=== PATIENT | male | born 1955 | race Caucasian/White ===

== ENCOUNTER → 2018-06-01 11:15 | Outpatient (CLI) | payer OTHER, SELFPAY ==
--- NOTE | 2018-06-01 11:30 | EKG12_ITS ---
Test Reason : PRE-OP Blood Pressure : / mmHG Vent. Rate : 078 BPM Atrial Rate : 078 BPM P-R Int : 178 ms QRS Dur : 090 ms QT Int : 398 ms P-R-T Axes : 041 -09 011 degrees QTc Int : 453 ms Normal sinus rhythm Normal ECG Confirmed by RICO JOHNSON, ILIR ([id number]), purchasing expeditor YADI MOSELEY ([id number]) on 06/02/2018 9:35:13 AM Referred By: Norris Adams Confirmed By:ILIR GÓMEZ MD
[2018-06-01 11:47] LABS: Hematocrit 47.7 % (40-54); Hemoglobin 15.6 g/dl (13.0-16.5); Mean Corp Hgb Conc 32.7 g/gl (32-36); Mean Corpuscular Hgb 30.7 pg (27.0-32.0); Mean Corpuscular Volume 93.9 fL (80-94); Mean Platelet Vol. 9.6 fl (6.2-12.0); Platelet Count 230 K/mm3 (150-450); RBC Distribution Width CV 13.3 % (11.6-14.6); RBC Distribution Width SD 45.7 fl (35.1-43.9); Red Blood Count 5.08 M/mm3 (4.6-6.2); White Blood Count 6.1 K/mm3 (4.4-11.0)
[2018-06-01 12:00] LABS: Scan Indicated on CBC? Y/N NO
[2018-06-01 12:10] LABS: Anion Gap 11 (5-15); BUN 14 mg/dL (7-18); BUN/Creat Ratio 12.3 RATIO (10-20); Calcium,Total 8.6 mg/dL (8.5-10.1); Chloride 108 mmol/L (98-107); Creatinine, Serum 1.14 mg/dL (0.70-1.30); EST Glomerular Filtration Rate 69 mL/min (>60); Est Glom Filt Rate - Afr Amer 84 mL/min (>60); Glucose 106 mg/dL (74-106); Potassium 3.8 mmol/L (3.5-5.1); Sodium Level 140 mmol/L (136-145)
== END ==
PROVIDERS: Family Provider Family Medicine; PCP Family Medicine; Referring Provider Orthopaedic Surgery; Visit Provider Orthopaedic Surgery
DX: Z01.818 Encounter for other preprocedural examination (principal); Z01.810 Encounter for preprocedural cardiovascular examination
CPT/HCPCS: 36415; 80048; 85027; 93005

== ENCOUNTER 2023-04-15 05:23 | Day surgery (SDC) | payer MEDICARE, BC, SELFPAY ==
[2023-04-15 05:50] VITALS: BP 136/77; PULSE 62; RESP 18; TEMP 36.2; O2SAT 96; BMI 35.1
[2023-04-15] MEDS: Lactated Ringers 1,000 ML 15 ML IV (06:04)
--- NOTE | 2023-04-15 06:35 | COLBX_PTH ---
PATIENT: TRACY GOSS LOC: EN U#:[id number] AGE/SX: 67/M ROOM: RE04/15/[address]: Dr. Daniel Basurto DO : 1955 BED: DIS: 04/15/2023 SPEC #: [id number] RECD: 04/15/23 10:37 STATUS: TIA VIOLETA #: [id number] PASCALE: 04/15/23 06:[address]: Daniel Basurto DEPT: SURGICAL PATHOLOGY RECD BY: Bia Pascual ENTERED: 04/15/23 11:23 SP TYPE: COLON BX OTHR DR: DO Dr. Regis Ferguson MD Tissues: Ascending colon Procedures: Surgery Specimen Level IV HEADER OPERATION: Colonoscopy - open access, polypectomy, marking clip PRE-OP DIAGNOSIS: Screening TISSUE SUBMITTED: Ascending polyp MICROSCOPIC DIAGNOSIS Ascending colon polyp, biopsy: Fragments of hyperplastic polyp. AM:delgado 04/16/2023 MICROSCOPIC DESCRIPTION Slides are reviewed. GROSS DESCRIPTION Received in fixative is one container labeled with the patient's name and designated ascending polyp. The specimen consists of multiple irregular fragments of light lozano soft tissue mixed with fecal material that in aggregate measure 3.0 x 0.8 x 0.3 cm. The specimen is totally submitted in one cassette. / SJ:delgado 04/15/2023 TC:5 CPT: 72379
--- NOTE | 2023-04-15 06:35 | HP.PCM_ITS ---
HPI - General General Date of Admission: 04/15/23 Date of Service: 04/15/23 Chief Complaint: Screening colonoscopy HPI Narrative TRACY GOSS, is a 67 M who presents today for a screening colonoscopy. Past medical history is positive for hypertension which is controlled with metoprolol 50 mg daily. He had a colonoscopy approximately 10 years ago and it was normal except for hemorrhoidal disease. He has no family history of colorectal malignancy. He does not have any abdominal pain, cramping, bleeding or any change in bowel movement. All other 16 review of systems are negative except as revised mentioned HPI. [facility] Medical History (Updated 04/13/23 @ 15:41 by Whitney Joshi) Alcohol use Arthritis Asthma Back pain Blackout Cardiology follow-up encounter Family hx of colon cancer Fatty liver Generalized anxiety disorder High cholesterol History of echocardiogram History of IBS History of stress test HTN (hypertension) Injury of head and neck Insomnia Kidney stones Major depressive disorder Mixed hyperlipidemia TARIK (obstructive sleep apnea) Prediabetes Seasonal allergies Shortness of breath on exertion Sleep apnea Tricuspid valve regurgitation Wears glasses Home Medications metoprolol succinate 100 mg tablet,extended release 24 hr 50 mg PO DAILY 03/12/23 [History Last Taken Unknown] Allergy/AdvReac Type Severity Reaction Status Date / Time No Known Allergies Allergy Verified 04/15/23 05:46 Family History (Updated 03/12/23 @ 14:21 by Lisa Atkinson) Daughter Colon cancer Grandmother Colon cancer Unknown Rectal cancer Surgical History (Updated 04/13/23 @ 15:41 by Whitney Joshi) History of esophagogastroduodenoscopy (EGD) History of Little fundoplication Hx of colonoscopy Hx of inguinal hernia repair Hx of knee surgery Hx of shoulder surgery Hx of surgical procedure Social History (Updated 03/12/23 @ 14:22 by Lisa Atkinson) household members: spouse current occupational status: employed Smoking Status: Never smoker ROS Review of Systems ROS Unobtainable: other Constitutional Constitutional: Denies fatigue, fever(s), poor appetite, weight gain or weight loss ENT HEENT: Denies mouth lesions Cardiovascular Cardiovascular: Denies abdominal bloating, abdominal edema or abdominal pain Respiratory/Chest Respiratory/Chest: Denies change in mental status, change in phlegm color, chest congestion or chest tightness Gastrointestinal Gastrointestinal: Denies belching, bloating, change in bowel habits, change in stool character, chewing difficulty, coffee ground emesis, constipation, cramping, diarrhea, dyspepsia, dysphagia, early satiety, excessive flatus, fecal incontinence, heartburn, hematemesis, hematochezia, hemorrhoids, loose stools, melena, nausea, odynophagia, rectal bleeding, tenesmus, vomiting or weight changes Genitourinary Genitourinary: Denies abdominal discomfort, burning urination or itching Musculoskeletal Musculoskeletal: Reports as per HPI; Denies muscle weakness or myalgias Integumentary Integumentary: Denies jaundice Neurologic Neurologic: Denies lack of coordination or weakness Psychiatric Psychiatric: Denies confusion, depression, memory loss, mood swings, paranoia or suicidal ideation Endocrine Endocrinology: Denies systems reviewed and no addt'l complaints, except as documented Hematologic/Lymphatic Hematologic/Lymphatic: Denies anemia, easy bleeding, easy bruising or lymphadenopathy Allergic/Immunologic Allergic/Immunologic: Denies systems reviewed and no addt'l complaints, except as documented Vital Signs Vital Signs Vital Signs: 04/15/23 05:49 04/15/23 05:50 Temperature 97.2 F L Temperature Source Temporal Pulse Rate 62 Respiratory Rate 18 Respiratory Pattern Normal Blood Pressure 136/77 H Blood Pressure Mean 96 Blood Pressure Source Monitor Blood Pressure Position Semi-Fowlers Blood Pressure Location Right Arm Pulse Ox 96 Oxygen Delivery Method Room Air Weight Weight: 214 lb 3.2 oz Body Mass Index (BMI) 35.1 Physical Exam Const alert, oriented x3, no apparent distress, healthy appearing and well nourished General Appearance: cooperative, comfortable, well kempt and well developed Orientation / Consciousness: awake and oriented to person HEENT Head and Scalp: normocephalic and atraumatic Face and Sinus: normal facial exam Mouth: oral and palatal mucosa normal Eyes General Eye: normal appearance of both eyes Neck full ROM Lymph Lymphatic: no lymphadenopathy noted Chest inspection of chest normal Resp normal respiratory effort and no use of accessory muscles Cardio regular rate and regular rhythm GI normal to inspection, nondistended, normoactive bowel sounds, soft to palpation, non-tender, non-distended and no masses Auscultation: normoactive bowel sounds Palpation: soft Percussion: normal to percussion Rectal Exam: visual inspection normal and normal sphincter tone no CVA tenderness Back/Spine no CVA tenderness and normal ROM Extremity normal to inspection Peripheral Pulses: Yes pulses 2+ throughout Skin no rashes or lesions noted General Skin Exam: no breakdown, elasticity normal and turgor normal Neuro oriented x3 Motor Exam: strength 5/5 throughout Psych mental status grossly normal Appearance: grossly normal Attitude: calm Activity / Motor Behavior: appropriate eye contact Speech: normal speech Thought Process: normal thought process Thought Content: normal thought content Attention / Concentration: attention grossly intact Memory / Cognition: memory grossly intact Insight: insight good Judgement: judgement good Assessment & Plan Assessment/Plan (1) Encounter for screening for malignant neoplasm of colon: PLAN: He was explained alternatives, risk, benefits including not withstanding bleeding, infection, sepsis, perforation, need for emergent surgery . He will have an ASA of 2.
[2023-04-15 07:10] VITALS: BP 136/77; BP 95/60; PULSE 70; RESP 18; TEMP 36.7; O2SAT 98
--- NOTE | 2023-04-15 07:13 | OP.COLON_ITS ---
Patient Name: Dennis Cardoso Procedure Date: 04/15/2023 6:27 AM Date of : 1955 Age: 67 Procedure: Colonoscopy Indications: Screening for colorectal malignant neoplasm Providers: Daniel Basurto DO Referring MD: Regis Patel Medicines: Monitored Anesthesia Care Patient Profile: This is a 67 year old male. Refer to note in patient chart for documentation of history and physical. Last Colonoscopy: more than 10 years ago. Complications: No immediate complications. Procedure: Pre-Anesthesia Assessment: - Prior to the procedure, a History and Physical was performed, and patient medications and allergies were reviewed. The patient is competent. The risks and benefits of the procedure and the sedation options and risks were discussed with the patient. All questions were answered and informed consent was obtained. Patient identification and proposed procedure were verified by the physician in the pre-procedure area. Mental Status Examination: alert and oriented. Airway Examination: normal oropharyngeal airway and neck mobility. Respiratory Examination: clear to auscultation. CV Examination: normal. Prophylactic Antibiotics: The patient does not require prophylactic antibiotics. Prior Anticoagulants: The patient has taken no anticoagulant or antiplatelet agents. ASA Grade Assessment: II - A patient with mild systemic disease. After reviewing the risks and benefits, the patient was deemed in satisfactory condition to undergo the procedure. The anesthesia plan was to use monitored anesthesia care (MAC). Immediately prior to administration of medications, the patient was re-assessed for adequacy to receive sedatives. The heart rate, respiratory rate, oxygen saturations, blood pressure, adequacy of pulmonary ventilation, and response to care were monitored throughout the procedure. The physical status of the patient was re-assessed after the procedure. After I obtained informed consent, the scope was passed under direct vision. Throughout the procedure, the patient's blood pressure, pulse, and oxygen saturations were monitored continuously. The colonoscope was introduced through the anus and advanced to the cecum, identified by appendiceal orifice and ileocecal valve. The colonoscopy was performed without difficulty. The patient tolerated the procedure well. The quality of the bowel preparation was adequate. The ileocecal valve, appendiceal orifice, and rectum were photographed. Scope In: 6:46:07 AM Scope Withdrawal Time 0 hours 13 minutes 53 seconds Scope Out: 7:03:18 AM Total Procedure Duration Time 0 hours 17 minutes 11 seconds Findings: The perianal and digital rectal examinations were normal. A 29 mm polyp was found in the ascending colon. The polyp was sessile. The polyp was removed with a saline injection-lift technique using a hot snare. Resection and retrieval were complete. Verification of patient identification for the specimen was done. Area was tattooed with an injection of 2 mL of Theresa ink. To prevent bleeding post-intervention, one hemostatic clip was successfully placed. Clip meat cutter: [employer]. There was no bleeding at the end of the procedure. A 5 mm polyp was found in the ascending colon. The polyp was sessile. The polyp was removed with a cold snare. Resection and retrieval were complete. Verification of patient identification for the specimen was done. Estimated blood loss was minimal. Multiple small and large-mouthed diverticula were found in the recto-sigmoid colon and sigmoid colon. Impression: - One 29 mm polyp in the ascending colon, removed using injection-lift and a hot snare. Resected and retrieved. Tattooed. Clip was placed. Clip meat cutter: [employer]. - One 5 mm polyp in the ascending colon, removed with a cold snare. Resected and retrieved. - Diverticulosis in the recto-sigmoid colon and in the sigmoid colon. Recommendation: - Discharge patient to home. - Resume previous diet. - Continue present medications. - Await pathology results. - Repeat colonoscopy in 5 years for surveillance. Procedure Code(s): --- Professional --- 63943, Colonoscopy, flexible; with removal of tumor(s), polyp(s), or other lesion(s) by snare technique 27638, Colonoscopy, flexible; with directed submucosal injection(s), any substance CPT copyright 2021 [employer]. All rights reserved. The codes documented in this report are preliminary and upon braille coder review may be revised to meet current compliance requirements. Dnaiel Basurto DO 04/15/2023 7:13:04 AM This report has been signed electronically. Number of Addenda: 0 Note Initiated On: 04/15/2023 6:27 AM
--- NOTE | 2023-04-15 07:13 | OP.CCLET_ITS ---
04/15/2023 Regis Phillips Do Re : Colonoscopy procedure for Dennis Cardoso Dear Dr. Phillips This procedure was performed on March. My impressions and recommendations are as follows: Impressions : - One 29 mm polyp in the ascending colon, removed using injection-lift and a hot snare. Resected and retrieved. Tattooed. Clip was placed. Clip beverage specialist: [employer] - One 5 mm polyp in the ascending colon, removed with a cold snare. Resected and retrieved. - Diverticulosis in the recto-sigmoid colon and in the sigmoid colon. Recommendations : - Discharge patient to home. - Resume previous diet. - Continue present medications. - Await pathology results. - Repeat colonoscopy in 5 years for surveillance. My findings are described in the full procedure note, which is enclosed. If I can be of further assistance, please feel free to contact me at . Sincerely, Daniel Basurto, 04/15/2023 7:13:04 AM This report has been signed electronically.
[2023-04-15 07:15] VITALS: BP 104/72; BP 136/77; PULSE 71; RESP 18; O2SAT 92
[2023-04-15 07:20] VITALS: BP 118/78; BP 136/77; PULSE 68; RESP 16; O2SAT 94
[2023-04-15 07:25] VITALS: BP 127/75; BP 136/77; PULSE 55; RESP 18; O2SAT 94
[2023-04-15 07:57] VITALS: BP 136/77
== END 2023-04-15 08:01 | disposition home or self-care (01) ==
LOC: EN 05:24 → AC 05:26
PROVIDERS: Referring Provider Internal Medicine; Visit Provider Internal Medicine Gastroenterology
PROC: 0DJD8ZZ Inspection of Lower Intestinal Tract, Via Natural or Artificial Opening Endoscopic (ICD-10-PCS; CPT 45378; principal; 2023-04-15 06:30)
DX: Z12.11 Encounter for screening for malignant neoplasm of colon (principal); K63.5 Polyp of colon; K57.30 Diverticulosis of large intestine without perforation or abscess without bleeding; I10 Essential (primary) hypertension; Z79.899 Other long term (current) drug therapy; Z80.0 Family history of malignant neoplasm of digestive organs
CPT/HCPCS: 45385; 45381; 88305; J7120; A4648; J2405

== ENCOUNTER 2024-04-27 10:42 | Inpatient (IN) | payer MEDICARE, BC, SELFPAY ==
[2024-04-27 11:14] VITALS: BP 122/78; PULSE 68; RESP 16; TEMP 37.1; O2SAT 94; BMI 338215.5
--- NOTE | 2024-04-27 11:51 | NURSING ---
Waiting to hear back from Dr Thompson if pt can have DVT prophylaxis.
[2024-04-27] MEDS: Magnesium Hydroxide 30 ML UDC PO (11:59)
[2024-04-27] MEDS: Senna/Docusate Sodium 1 Tablet 2 TABLET PO ×2 (11:59→20:42)
[2024-04-27 12:45] LABS: Bacteria 0 SEEN /hpf (None Seen); Mucous, Urine 0 SEEN /hpf (<or=2+); Red Blood Cells-Urine 0 SEEN /hpf (0-5); Squamous Epithelial Cells - UA 0 SEEN /hpf (0-5); White Blood Cells 0 SEEN /hpf (0-5)
[2024-04-27 12:50] LABS: Color, Urine Yellow (Yellow); Glucose, Dipstick Normal (Normal); Ketone-Dipstick Negative (Negative); Leukocyte Esterase-Dipstick Negative /ul (Negative); Nitrite-Dipstick Negative (Negative); Occult Blood-Urine Negative /ul (Negative); Protein-Dipstick Negative (Negative); Urine Bilirubin Dipstick Negative (Negative); Urine Clarity Clear (Clear); Urine Urobilinogen Normal (Normal); Urine pH 6.5 (5.0 - 8.0)
[2024-04-27] MEDS: Acetaminophen 500 MG Tablet 1000 MG PO ×2 (13:09→21:44)
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
--- NOTE | 2024-04-27 14:25 | REHABEVAL_ITS ---
Admission Information Primary Diagnosis:: Post stroke debility Status Changes from Prescreening?: No changes Identified Actual Problem List:: Pain, ALteration in Cmfrt, Cognitve Impr/Memory Loss, Depression, Bowel, Constipation, Alteration in Sleep, Mobility Impaired, Self Care Deficit, Fluid Change-Dehydration and Alteration-Leisure Activ. Potential Problem List:: DVT, Bleeding, Infection, UTI, Aspiration, Falls, Skin Integrity and Depression Risk of Complications DVT: WILDER Hose and Sequential Compression Device Bleeding: Monitor Lab Values, Nursing to Teach Precautions for anti-coagulation therapy., Wound, if applicable, to be assessed every shift. and Stroke patients assessed for lethargy or change in status. Infection: Clinical Staff to Monitor for S/S of infection: and S/S of infection include fever, redness, warmth, etc. Urinary Tract Infection: Monitor for frequency, burning, discomfort, or incontinence. and Nursing will obtain urine sample for urinalysis and C&S when ordered. Aspiration: Clinical staff will monitor for coughing, drooling, congestion., Speech will evaluate swallowing and dsyphasia. and Nursing will monitor patient swallowing during meals. Falls: Patient will be evaluated for Fall Precautions and Patient will be placed on Fall Precautions as indicated per protocol. Skin Breakdown: Nursing will assess skin daily using assessment tool. and Nursing will place on Skin Breakdown Precautions as indicated. Pain: Clinical staff will assess patient's pain level per protocol., Medications will be given, if needed, and the pain level reassessed. and Other methods: Massage, distraction, decrease stimulus, etc. used PRN. Plan of Care Patient requires physician specializing in physical medicine and rehab oversight to provide close medical supervision of rehab issues including: Pain Management, Sleep Problems, Bowel and Bladder, Medical and co-morbidity Management, DVT prophylaxis, Rehabilitation Leadership and Coordination of treatment team Patient needs Physical Therapy: For a minimum of 1 hour and At least 5 out of 7 days Patient needs Physical Therapy to improve:: Mobility, Strengthening, Transfers, Stretching, ROM, Endurance, Stairs, Gait and Balance Patient needs Occupational Therapy: For a minimum of 1 hour and At least 5 out of 7 days Patient needs Occupational Therapy to improve ADL's incl.: Eating, Grooming, Bathing, Dressing, Toileting, Toilet transfers, Community Reintegration, Higher functioning activities, Household tasks, Adaptive Equipment, Splinting and Other activities as determined Patient requires speech therapy: For a minimum of 1 hour and At least 5 out of 7 days Patient requires speech therapy for: Swallowing, Cognition, Language Skills and Compensatory Strategies Patient requires 24/ Rehabilitation Nursing for: Pain Issues, Identifying and preventing risk factors, Monitoring and reporting current medical conditions, Assisting with ambulation, transfer, and all ADL's, Teaching patients about disease process and medications, Family teaching, Providing safe environment, Bowel and Bladder Issues, Skin integrity and Medication Management Patient needs Precision Agronomist/ Case Management for: Discharge Planning, Arranging Home Equipment or Services and Family Interventions Patient needs Dietary and Nutrition Services for: Adequate Nutrition, Nutritional Supplements and Nutritional Education Goals Goals Patient will remain: free from falls Patient will perform eating at: MOD I level of assist. Patient will perform bed mobility at: MOD I level of assist. Patient will complete transfers from bed to chair at: MOD I level of assist. Patient will ambulate: - (500 feet with least restrictive device at supervision various surfaces.) Patient will complete upper body dressing at: MOD I level of assist. Patient will complete lower body dressing at: MOD I level of assist. ( With adaptive equipment as needed) Patient will complete toilet transfer at: MOD I level of assist. Patient will complete toileting at: MOD I level of assist. Patient will perform bathing at: MOD I level of assist. (Upper body bathing independently and lower body bathing at mod I with adaptive equipment as needed.) Patient will perform Tub/Shower transfer at: - (Supervision) Patient will complete grooming at: MOD I level of assist. Patient will complete home management skills at: MOD I level of assist. Patient will achieve: - (2 steps with least restrictive device and no handrails to allow access to his home entrance) Patient will have pain level of: of 3 or less Patient's skin will: remain intact Patient will receive: adequate nutrition. Discharge Planning Pt Prognosis for Sig. Practical Improv. w/in Reasonable Time: Good Estimated Length of stay (days): 21 Anticipated D/C Destination: Home with Outpt Therapy Was Preadmission Assessment Accurate?: Yes
--- NOTE | 2024-04-27 16:05 | CASEMGMT ---
Social Work- Met with pt to complete initial assessment. Introduced self and role. Verified/updated contacts. Pt does not have directives and declined completion of directives with SW at this time. Educated to Medicare benefit and copay coverage. Pt?s goal is to return home with spouse. SW will continue to follow for DC planning. SW updated contacts to include daughter per pt request. NAHEED Gambino ?
[2024-04-27 18:00] VITALS: BP 111/71; PULSE 105; RESP 16; TEMP 37.1; O2SAT 94
[2024-04-27 20:28] VITALS: BP 127/81; PULSE 106
[2024-04-27 20:42] VITALS: PULSE 106
[2024-04-27] MEDS: Metoprolol(XL)Succ 25 MG Tablet PO (20:42)
[2024-04-27] MEDS: Mirtazapine 30 MG Tablet PO (20:42)
[2024-04-27] MEDS: Bisacodyl 10 MG Suppository RC (20:44)
[2024-04-27] MEDS: diazePAM 5 MG Tablet PO (20:44)
[2024-04-27 21:18] VITALS: PULSE 104; O2SAT 92
[2024-04-28] VITALS (8 sets, daily range): BP systolic 115–165; BP diastolic 68–88; PULSE 77–105; RESP 16–20; TEMP 36.8–38.5; O2SAT 92–96
[2024-04-28] MEDS: hydrALAZINE 10 MG Tablet PO (04:38)
[2024-04-28] MEDS: Acetaminophen 500 MG Tablet 1000 MG PO ×3 (05:25→21:02)
[2024-04-28 07:04] LABS: Absolute Lymphocyte Count 2.11 X10^3/uL (0.83-4.51); Absolute Neutrophil Count 8.6 X10^3/uL (2.0-7.7); Basophil# 0.03 X10^3/uL; Basophil% 0.2 % (0-1); Eosinophil# 0.37 X10^3/uL; Hematocrit 41.6 % (40-54); Hemoglobin 13.6 g/dL (13.0-16.5); Lymphocyte # 2.11 X10^3/ul (0.83-4.51); Mean Corp Hgb Conc 32.7 g/dL (32-36); Mean Corpuscular Hgb 30.1 pg (27.0-32.0); Mean Platelet Vol. 8.8 fl (6.2-12.0); Monocyte# 1.24 X10^3/uL; NRBC Flagged by Analyzer 0 % (0-5); Neutrophil # 8.59 X10^3/uL (2.7-7.7); Neutrophil % 69.3 % (47-70); Platelet Count 342 K/mm3 (150-450); RBC Distribution Width CV 14.2 % (11.6-14.6); RBC Distribution Width SD 47.8 fl (35.1-43.9); Red Blood Count 4.52 M/mm3 (4.6-6.2); White Blood Count 12.4 K/mm3 (4.4-11.0)
[2024-04-28 07:33] LABS: ALB/GLOB Ratio 0.9 RATIO (0.9-2.4); AST(SGOT) 14 U/L (15-37); Alanine Aminotransfer ALT/SGPT 30 U/L (16-61); Alkaline Phosphatase 48 U/L (45-117); Anion Gap 6 (5-15); BUN 22 mg/dL (7-18); BUN/Creat Ratio 19.5 RATIO (10-20); Chloride 102 mmol/L (98-107); Creatinine, Serum 1.13 mg/dL (0.70-1.30); EST Glomerular Filtration Rate 69 mL/min (>60); Est Glom Filt Rate - Afr Amer 83 mL/min (>60); Estimated Creatinine Clearance 60.83 ml/min; Globulin 3.5 g/dL (2.2-4.2); Glucose 121 mg/dL (74-106); Magnesium 2.2 mg/dL (1.6-2.6); Phosphorus 3.1 mg/dL (2.5-4.9); Potassium 3.7 mmol/L (3.5-5.1); Protein, Total 6.5 g/dL (6.4-8.2); Sodium Level 137 mmol/L (136-145)
[2024-04-28 08:02] LABS: Hemoglobin A1c 6.1 % (3.8-5.6)
[2024-04-28] MEDS: Pantoprazole Sodium 20 MG Tablet PO (08:11)
[2024-04-28] MEDS: Senna/Docusate Sodium 1 Tablet 2 TABLET PO (08:11)
[2024-04-28] MEDS: Aspirin E.C. 81 MG Tablet PO (08:11)
[2024-04-28] MEDS: Clopidogrel Bisulfate 75 MG Tablet PO (08:12)
[2024-04-28] MEDS: Cholecalciferol (VIT D3) 25 MCG TABLET (1,000 UNITS) 50 MCG PO (08:12)
[2024-04-28] MEDS: Metoprolol(XL)Succ 25 MG Tablet PO ×2 (08:12→21:01)
[2024-04-28] MEDS: Atorvastatin Calcium 40 MG Tablet PO (08:12)
[2024-04-28] MEDS: Ascorbic Acid 500 MG Tablet PO (08:12)
[2024-04-28] MEDS: hydroCHLOROthiazide 25 MG Tablet PO (08:12)
[2024-04-28] MEDS: Losartan Potassium 50 MG Tablet PO (08:13)
[2024-04-28] MEDS: diazePAM 5 MG Tablet PO ×2 (08:17→21:01)
--- NOTE | 2024-04-28 14:26 | NURSING ---
Soap suds enema administered this afternoon. Small amount of liquid stool as a result.
--- NOTE | 2024-04-28 14:40 | PCM.PROGNOTE ---
Subjective Subjective Temp of 101.3 this afternoon at 2:35. Not tachycardic. BP is stable. VSS - Maintaining appropriate oxygen saturation on RA Oral intake - FOOD 850 to 74% of his breakfast but only 25 to 40% of his lunch. FLUIDS poor Discussed with nursing - only had a very small BM after MOM. Nursing gave a SS enema today. Rosenthal inserted last night for urine retention. He is not on any medication for BPH Reviewed the THERAPY notes Medication list reviewed. C/O HATHAWAY. He denies nasal congestion, rhinitis, lightheadedness, sore throat, cough, sinus pain, shortness of breath, chest pain, dysuria, calf pain. He is having some abdominal discomfort after the enema and is cramping. UA yesterday had no white blood cells and no bacteria. White blood cell count today is 12.4 with an unremarkable differential. Hemoglobin is 13.6 and platelets are within normal limits. Sodium is 137 and the potassium is 3.7. Serum bicarb is normal. The BUN is 22 with a creatinine of 1.13. Fasting blood sugar was elevated at 121 and the hemoglobin A1c is elevated at 6.1 which is consistent with prediabetes/glucose intolerance. Phosphorus and magnesium are normal. LFTs are unremarkable. Objective Data Objective Data Vital Signs: Vital Signs Temp Pulse Resp BP Pulse Ox O2 Del Method O2 Flow Rate 101.3 F H 88 18 142/68 H 92 Room Air 0 04/28/24 14:35 04/28/24 14:35 04/28/24 14:35 04/28/24 14:35 04/28/24 14:35 04/28/24 14:35 04/27/24 21:18 FiO2 21 04/27/24 21:18 Oxygen Flow Rate (L/min) 0 Oxygen Delivery Method Room Air Weight: 203 lb 4.259 oz Body Mass Index (BMI) 041722.5 Intake & Output: Intake and Output for Last 24 Hours 04/26/24 04/27/24 04/28/24 23:59 23:59 23:59 Intake Total 700 / 700 370 / 370 Output Total 1550 / 1550 1250 / 1250 Balance -850 / -850 -880 / -880 Lab / Micro Data 04/28/24 06:30 04/28/24 06:30 Labs: Laboratory Results - last 24 hr 04/28/24 06:30: WBC 12.4 H, RBC 4.52 L, Hgb 13.6, Hct 41.6, MCV 92.0, MCH 30.1, MCHC 32.7, RDW Std Deviation 47.8 H, RDW Coeff of Bobby 14.2, Plt Count 342, MPV 8.8, Immature Gran % (Auto) 0.500, Neut % (Auto) 69.3, Lymph % (Auto) 17.0 L, Bradley % (Auto) 10.0, Eos % (Auto) 3.0, Baso % (Auto) 0.2, Absolute Neuts (auto) 8.6 H, Absolute Lymphs (auto) 2.11, Nucleated RBC % 0, Sodium 137, Potassium 3.7, Chloride 102, Carbon Dioxide 29.0, Anion Gap 6, BUN 22 H, Creatinine 1.13, Estim Creat Clear Calc 60.83, Est GFR (MDRD) Af Amer 83, Est GFR (MDRD) Non-Af 69, BUN/Creatinine Ratio 19.5, Glucose 121 H, Hemoglobin A1c 6.1 H, Calcium 9.0, Phosphorus 3.1, Magnesium 2.2, Total Bilirubin 0.70, AST 14 L, ALT 30, Alkaline Phosphatase 48, Total Protein 6.5, Albumin 3.0 L, Globulin 3.5, Albumin/Globulin Ratio 0.9 Social Homelessness:: Unspecified (Not homeless) Physical Exam Const alert General Appearance: cooperative HEENT HEENT Narrative: NO THRUSH. No exudate in the posterior pharynx. No cervical adenopathy. Neck is supple and he has no pain in his neck. Mouth: dry mucous membranes Neck supple and No nodes General: trachea midline Resp normal respiratory effort, normal air movement and clear to auscultation bilaterally Resp Narrative: No cough with deep breathing. Effort and Inspection: Negative for tachypneic or respiratory distress Cardio regular rate, regular rhythm, no murmurs, no rub and no gallops GI GI Narrative: He was incontinent of stool after the enema but, after having a BM tells me that he feels better. The abd is not distended and it is soft. He had no guarding with palpation. BS's are normal. No masses. Urine in the Rosenthal bag is clear but, it is dark yellow. Extremity no calf tenderness General Extremity: Negative for edema Skin General Skin Exam: no breakdown Rashes: no rashes Wounds: Negative for wounds noted Assessment & Plan Assessment/Plan (1) FUO (fever of unknown origin): (2) Debility: (3) Intracerebral hemorrhage: QUALIFIERS: Intracerebral hemorrhage etiology: nontraumatic Cerebral hemorrhage location: unspecified cerebral location Laterality: right Qualified Code(s): I61.9 - Nontraumatic intracerebral hemorrhage, unspecified (4) Left-sided neglect: (5) Left homonymous hemianopsia: (6) Coronary artery disease: QUALIFIERS: Coronary Disease-Associated Artery/Lesion type: [place] artery [place] vs. transplanted heart: [place] heart Associated angina: without angina Qualified Code(s): I25.10 - Atherosclerotic heart disease of [place] coronary artery without angina pectoris (7) History of PTCA 1: PLAN: To the LAD at [facility] in [place] on 04/19/24 (8) TARIK (obstructive sleep apnea): PLAN: Sees Dr. Knight. Has Inspire. PLAN: Plan 1. continue therapy 2. Schedule Tylenol 1 GM q 8 hours for better control of cephalgia........Tylenol has been effective for cephalgia but, if the HATHAWAY gets bad before he gets it then it takes longer for it to work. 3. BC's X 2 now. COVID 19 4. acute abd series.......exam is not consistent with bowel obstruction, lungs are CTA, no ST and no cough, no neck stiffness. Abd was more distended yesterday and a little firm but, not tense. 5. No antibiotics at this time. continue to monitory closely. 6. Start Flomax 0.4 mg daily and do a voiding trial in 4-5 days. 7. He has dry MM and BUN/CREAT ratio is almost 20. Poor PO intake. Will start an IV and hydrate. this may even help with the cephalgia. Charges/Coding Visit Charges Inpatient E&M: 60741 Subs Hosp L2
--- NOTE | 2024-04-28 15:05 | RAD_ITS ---
INDICATION: ABD PAIN WITH FEVER EXAMINATION/TECHNIQUE: X-RAY - XR Abdomen Series W/ Chest 1 View COMPARISON: S x-ray of 03/24/2010 FINDINGS: --Chest: LINES/DEVICES: quality assurance monitor device overlying the right chest. LUNGS: No consolidation, edema or effusion. No pneumothorax. MEDIASTINUM AND CARDIOVASCULAR STRUCTURES: Cardiac silhouette not enlarged. Tortuosity of the thoracic aorta. Central airways and mediastinal contour are unremarkable. BONES AND SOFT TISSUES: No acute findings. --Abdomen: BOWEL GAS PATTERN: Dilated small bowel loops and colon with air-fluid levels. FREE AIR: None visualized. ORGANOMEGALY: Not seen. CALCIFICATIONS: No abnormal calcifications observed. BONES AND SOFT TISSUES: No acute findings. RAD/Acute Abdomen Inc Chest IMPRESSION: Dilated small bowel loops and colon with air-fluid levels likely due to ileus. Bowel obstruction cannot be excluded. Electronically Signed: Vishal Martinez MD at 15:57 EDT ,
[2024-04-28] MEDS: 0.9% Normal Saline (1000mL) 1,000 ML 500 ML IV (15:50)
[2024-04-28] MEDS: 0.9% Normal Saline (1000mL) 1,000 ML 100 ML IV ×2 (17:47→20:51)
[2024-04-28] MEDS: Mirtazapine 30 MG Tablet PO (21:01)
[2024-04-29] VITALS (12 sets, daily range): BP systolic 131–172; BP diastolic 69–87; PULSE 66–86; RESP 16–17; TEMP 36.6–36.8; O2SAT 94–95
[2024-04-29] MEDS: Acetaminophen 500 MG Tablet 1000 MG PO ×3 (05:27→21:44)
[2024-04-29] MEDS: 0.9% Normal Saline (1000mL) 1,000 ML 100 ML IV ×2 (05:32→18:30)
--- NOTE | 2024-04-29 08:00 | PCM.PROGNOTE ---
Subjective Subjective Afebrile since yesterday afternoon. Blood pressures have been elevated and have ranged from 142/68 to 172/83 over the past 24 hours. Heart rate is 83 today. Had 4 BM's yesterday after the soap suds enema Tells me that he is feeling better today. He denies nausea. He ate 75 to 100% of a clear liquid diet. He denies nausea, abdominal pain, heartburn. No abdominal cramping. Continues to complain of cephalgia but adequately relieved with Tylenol which is now been scheduled. No night sweats overnight no shaking chills. Urine in the Rosenthal tubing and Rosenthal bag is more pale yellow today and is clear. Alert, appropriate HRRR no murmur and no gallop Lungs-good air exchange, clear to auscultation Abdomen soft, nondistended, nontender to palpation, improved bowel sounds today. No guarding with palpation. No calf tenderness, no ankle edema Objective Data Objective Data Vital Signs: Vital Signs Temp Pulse Resp BP Pulse Ox O2 Del Method O2 Flow Rate 98.2 F 83 16 172/83 H 95 Room Air 0 04/29/24 05:34 04/29/24 05:34 04/29/24 05:34 04/29/24 05:34 04/29/24 05:34 04/29/24 05:34 04/27/24 21:18 FiO2 21 04/27/24 21:18 Oxygen Flow Rate (L/min) 0 Oxygen Delivery Method Room Air Weight: 203 lb 4.259 oz Body Mass Index (BMI) 102551.5 Intake & Output: Intake and Output for Last 24 Hours 04/27/24 04/28/24 04/29/24 23:59 23:59 23:59 Intake Total 700 / 700 1945 / 1945 1886.67 / 1886.67 Output Total 1550 / 1550 2675 / 2675 1175 / 1175 Balance -850 / -850 -730 / -730 711.67 / 711.67 Lab / Micro Data 04/28/24 06:30 04/28/24 06:30 Labs: Laboratory Results - last 24 hr 04/28/24 06:30: Hemoglobin A1c 6.1 H Micro: Microbiology 04/28/24 16:20 Nasal Secretion SARS-CoV-2 Antigen (Rapid) - Final Radiography Diagnostic Testing: Radiology Impression Acute Abdomen Series 04/28/24 15:05 IMPRESSION: Dilated small bowel loops and colon with air-fluid levels likely due to ileus. Bowel obstruction cannot be excluded. Electronically Signed: Vishal Martinez MD at 15:57 EDT , Social Homelessness:: Unspecified (Not homeless) Assessment & Plan Assessment/Plan (1) FUO (fever of unknown origin): PLAN: I suspect this is due to obstipation with translocation of bacteria. (2) Ileus: PLAN: No BM for the week prior to coming to rehab (3) Debility: (4) Intracerebral hemorrhage: QUALIFIERS: Intracerebral hemorrhage etiology: nontraumatic Cerebral hemorrhage location: unspecified cerebral location Laterality: right Qualified Code(s): I61.9 - Nontraumatic intracerebral hemorrhage, unspecified (5) Left-sided neglect: (6) Left homonymous hemianopsia: (7) Coronary artery disease: QUALIFIERS: Coronary Disease-Associated Artery/Lesion type: [place] artery [place] vs. transplanted heart: [place] heart Associated angina: without angina Qualified Code(s): I25.10 - Atherosclerotic heart disease of [place] coronary artery without angina pectoris (8) History of PTCA 1: PLAN: To the LAD at [facility] in [place] on 04/19/24 (9) TARIK (obstructive sleep apnea): PLAN: Sees Dr. Knight. Has Inspire. (10) Urine retention: PLAN: Flomax started. Voiding trial in 4-5 days. PLAN: Plan 1. Continue therapy 2. Continue Flomax 0.4 mg daily with a voiding trial midweek 3. Advance diet to full liquid 4. Increase metoprolol to 50 mg twice daily in light of elevated blood pressures. Goal is to keep the systolic less than 140. Continue as needed hydralazine 5. Decrease the Valium to 5 mg at at bedtime 6. CBC with differential and BMP in the a.m. 7. Continue IV fluids-if he has good oral intake today and in the BUN/creatinine is improved in the morning we will discontinue the IV fluids. 8. No antibiotics indicated at this time. Charges/Coding Visit Charges Inpatient E&M: 78907 Subs Hosp L1
[2024-04-29] MEDS: Losartan Potassium 50 MG Tablet PO (08:05)
[2024-04-29] MEDS: Senna/Docusate Sodium 1 Tablet 2 TABLET PO (08:05)
[2024-04-29] MEDS: Atorvastatin Calcium 40 MG Tablet PO (08:05)
[2024-04-29] MEDS: Ascorbic Acid 500 MG Tablet PO (08:05)
[2024-04-29] MEDS: Cholecalciferol (VIT D3) 25 MCG TABLET (1,000 UNITS) 50 MCG PO (08:05)
[2024-04-29] MEDS: Aspirin E.C. 81 MG Tablet PO (08:05)
[2024-04-29] MEDS: Metoprolol(XL)Succ 50 MG Tablet PO ×2 (09:09→21:45)
[2024-04-29] MEDS: Clopidogrel Bisulfate 75 MG Tablet PO (09:10)
[2024-04-29] MEDS: Pantoprazole Sodium 20 MG Tablet PO (09:10)
[2024-04-29] MEDS: Tamsulosin HCl 0.4 MG Capsule PO (18:14)
[2024-04-29] MEDS: hydrALAZINE 10 MG Tablet PO (18:14)
[2024-04-29] MEDS: 0.9% Saline Lock 10 ML Syringe IV (18:31)
[2024-04-29] MEDS: Mirtazapine 30 MG Tablet PO (21:42)
[2024-04-29] MEDS: diazePAM 5 MG Tablet PO (21:50)
[2024-04-30] VITALS (10 sets, daily range): BP systolic 128–149; BP diastolic 64–82; PULSE 60–88; RESP 15–16; TEMP 36.8–37; O2SAT 96–98
--- NOTE | 2024-04-30 03:06 | NURSING ---
Reviewed and agree with Laverne GENAO, documentation and assessment charting.
[2024-04-30] MEDS: 0.9% Normal Saline (1000mL) 1,000 ML 100 ML IV ×2 (04:09→14:27)
[2024-04-30] MEDS: Acetaminophen 500 MG Tablet 1000 MG PO ×3 (06:04→20:54)
[2024-04-30 07:35] LABS: Absolute Lymphocyte Count 1.76 X10^3/uL (0.83-4.51); Absolute Neutrophil Count 6.7 X10^3/uL (2.0-7.7); Basophil# 0.04 X10^3/uL; Basophil% 0.4 % (0-1); Eosinophil# 0.39 X10^3/uL; Hematocrit 39.4 % (40-54); Hemoglobin 12.6 g/dL (13.0-16.5); Lymphocyte # 1.76 X10^3/ul (0.83-4.51); Lymphocyte % 18.1 % (19-41); Mean Corpuscular Volume 93.8 fL (80-94); Mean Platelet Vol. 8.8 fl (6.2-12.0); Monocyte% 8.2 % (0-10); NRBC Flagged by Analyzer 0 % (0-5); Neutrophil # 6.71 X10^3/uL (2.7-7.7); Platelet Count 310 K/mm3 (150-450); RBC Distribution Width CV 13.9 % (11.6-14.6); RBC Distribution Width SD 47.8 fl (35.1-43.9); White Blood Count 9.7 K/mm3 (4.4-11.0)
[2024-04-30] MEDS: Losartan Potassium 50 MG Tablet PO (07:53)
[2024-04-30 07:54] LABS: Anion Gap 5 (5-15); BUN 16 mg/dL (7-18); BUN/Creat Ratio 16.9 RATIO (10-20); Calcium,Total 8.5 mg/dL (8.5-10.1); Chloride 111 mmol/L (98-107); Creatinine, Serum 0.95 mg/dL (0.70-1.30); EST Glomerular Filtration Rate 85 mL/min (>60); Est Glom Filt Rate - Afr Amer 102 mL/min (>60); Estimated Creatinine Clearance 79.82 ml/min; Glucose 105 mg/dL (74-106); Sodium Level 140 mmol/L (136-145)
[2024-04-30] MEDS: Clopidogrel Bisulfate 75 MG Tablet PO (07:54)
[2024-04-30] MEDS: Pantoprazole Sodium 20 MG Tablet PO (07:54)
[2024-04-30] MEDS: Cholecalciferol (VIT D3) 25 MCG TABLET (1,000 UNITS) 50 MCG PO (07:54)
[2024-04-30] MEDS: Ascorbic Acid 500 MG Tablet PO (07:54)
[2024-04-30] MEDS: Aspirin E.C. 81 MG Tablet PO (07:54)
[2024-04-30] MEDS: Senna/Docusate Sodium 1 Tablet 2 TABLET PO ×2 (07:55→20:54)
[2024-04-30] MEDS: Atorvastatin Calcium 40 MG Tablet PO (11:07)
[2024-04-30] MEDS: Metoprolol(XL)Succ 50 MG Tablet PO ×2 (11:07→21:48)
[2024-04-30] MEDS: hydrALAZINE 10 MG Tablet PO ×3 (13:22→21:48)
[2024-04-30] MEDS: Tamsulosin HCl 0.4 MG Capsule PO (16:54)
[2024-04-30] MEDS: Mirtazapine 30 MG Tablet PO (20:54)
[2024-04-30] MEDS: diazePAM 5 MG Tablet PO (23:15)
[2024-05-01] MEDS: Acetaminophen 500 MG Tablet 1000 MG PO ×3 (06:18→21:29)
[2024-05-01 06:24] VITALS: BP 139/79; PULSE 69; RESP 16; TEMP 36.3; O2SAT 95
[2024-05-01] MEDS: Cholecalciferol (VIT D3) 25 MCG TABLET (1,000 UNITS) 50 MCG PO (07:36)
[2024-05-01] MEDS: Ascorbic Acid 500 MG Tablet PO (07:37)
[2024-05-01] MEDS: Clopidogrel Bisulfate 75 MG Tablet PO (07:37)
[2024-05-01] MEDS: Pantoprazole Sodium 20 MG Tablet PO (07:37)
[2024-05-01] MEDS: Atorvastatin Calcium 40 MG Tablet PO (07:37)
[2024-05-01] MEDS: Losartan Potassium 50 MG Tablet PO ×2 (07:37→12:10)
[2024-05-01] MEDS: Aspirin E.C. 81 MG Tablet PO (07:37)
[2024-05-01] MEDS: Senna/Docusate Sodium 1 Tablet 2 TABLET PO ×2 (07:37→21:32)
--- NOTE | 2024-05-01 08:58 | PCM.PROGNOTE ---
Subjective Subjective Dennis was seen on team rounds today. Afebrile -has been afebrile since Wednesday at 2:30 PM. He only had a fever 1 since admission. VSS -got 2 doses of p.o. hydralazine for mildly increased blood pressure yesterday. Blood pressure this morning is 139/79. Heart rate is within normal limits. Maintaining appropriate oxygen saturation on RA Oral intake - FOOD fair. Ate 75 to 100% of his breakfast this morning but refused supper last night. He was advanced to a soft diet today. FLUIDS better. 09/29/1969 p.o. yesterday and 1600 the day prior to that. Discussed with nursing - no problems that need addressed. 1 BM recorded for yesterday and he had 2 on Wednesday Reviewed the THERAPY notes Medication list reviewed. IV fluids were stopped last evening. All lab from this weekend was personally reviewed. White blood cell count yesterday was normal with an unremarkable differential. Hemoglobin was 12.6, down from 13.6 at admission however he was receiving IV fluids and being hydrated. Platelets are within normal limits. Sodium is normal at 140 and the potassium is 4.0. Serum bicarb is normal at 24. The BUN was down to 16 with a creatinine of 0.95, down from 1.13 at admission. Temp denies lightheadedness, chest pain, shortness of breath, palpitations, nausea/vomiting/abdominal pain, suprapubic pain and calf pain. Still having cephalgia but, adequately relieved with Tylenol which has been scheduled. Sleeping well at night. Objective Data Objective Data Vital Signs: Vital Signs Temp Pulse Resp BP Pulse Ox O2 Del Method O2 Flow Rate 97.4 F L 69 16 139/79 H 95 Room Air 0 05/01/24 06:24 05/01/24 06:24 05/01/24 06:24 05/01/24 06:24 05/01/24 06:05/01/24 06:04/27/24 21:18 FiO2 21 04/27/24 21:18 Oxygen Flow Rate (L/min) 0 Oxygen Delivery Method Room Air Weight: 203 lb 4.259 oz Body Mass Index (BMI) 641164.5 Intake & Output: Intake and Output for Last 24 Hours 04/29/24 04/30/24 05/01/24 23:59 23:59 23:59 Intake Total 4486.67 / 4486.67 3435 / 3435 1085 / 1085 Output Total 3005 / 3005 3100 / 3100 1250 / 1250 Balance 1481.67 / 1481.67 335 / 335 -165 / -165 Lab / Micro Data 04/30/24 07:17 04/30/24 07:17 Micro: Microbiology 04/28/24 15:29 Blood Culture (Wb) - Anticubital Left Blood Culture - Preliminary No growth in 48 hours. 04/28/24 16:20 Nasal Secretion SARS-CoV-2 Antigen (Rapid) - Final Social Homelessness:: Unspecified (Not homeless) Physical Exam Const alert Constitutional Narrative: Sitting in the recliner at the bedside. Does not make eye contact when speaking with someone. Very talkative. Pleasant. Does not seem anxious. General Appearance: cooperative HEENT moist oral mucous membranes Eyes PERRL Eyes Narrative: Can not adduct the R eye past midline. No nystagmus. Left visual neglect. He is not seeing to the R well.......does not blink with confrontation from the R lateral side of his face. Having trouble with depth perception........has a hard time finding his water cup which is on his R side. There is no scleral icterus, no conjunctival injection, no discharge from the eyes and no mattering of the eyelids. Neck supple, No nodes and no carotid bruits Neck Narrative: Trachea is midline General: trachea midline Resp normal respiratory effort, normal air movement and clear to auscultation bilaterally Resp Narrative: No cough with deep breathing. No cough. Effort and Inspection: Negative for tachypneic or respiratory distress Cardio regular rate, regular rhythm, no murmurs, no rub and no gallops Cardio Narrative: No ectopy. GI normal to inspection, nondistended, normoactive bowel sounds, soft to palpation and non-tender GI Narrative: No guarding with palpation. Having regular BM's now. Extremity no calf tenderness General Extremity: Negative for edema Skin no wounds and no jaundice Skin Narrative: Extensive bruising in the right upper arm over the biceps General Skin Exam: no breakdown Rashes: no rashes Wounds: Negative for wounds noted Neuro Neuro Narrative: Still with L side neglect. Needing VC's to avoid running into things with walking. Also needs VC's to find things on his meal tray without spilling. Coordination / Balance: [id number] test normal Psych cooperative Psych Narrative: Not making good eye contact when being spoken to.....not sure if this is his baseline or it is due to the change in the vision. Appearance: appropriate Mood & Affect: Negative for anxious Assessment & Plan Assessment/Plan (1) FUO (fever of unknown origin): PLAN: Resolved with out antibiotics. BC X 1 had no growth. I suspect the fever was due to obstipation with transient bacteremia Due to translocation of bacteria from distended colon. (2) Ileus: PLAN: resolved (3) Debility: (4) Intracerebral hemorrhage: QUALIFIERS: Cerebral hemorrhage location: unspecified cerebral location Intracerebral hemorrhage etiology: nontraumatic Laterality: right Qualified Code(s): I61.9 - Nontraumatic intracerebral hemorrhage, unspecified (5) Left-sided neglect: (6) Left homonymous hemianopsia: (7) Coronary artery disease: QUALIFIERS: Associated angina: without angina Coronary Disease-Associated Artery/Lesion type: [place] artery [place] vs. transplanted heart: [place] heart Qualified Code(s): I25.10 - Atherosclerotic heart disease of [place] coronary artery without angina pectoris (8) History of PTCA 1: (9) TARIK (obstructive sleep apnea): (10) Urine retention: PLAN: Started on Flomax 04/29/24. PLAN: Plan 1. Continue therapy 2. Increase Cozaar to 50 mg daily to consistently maintain blood pressure less than 140/80 without requiring Apresoline. 3. Voiding trial a.m. Will have received 5 doses of Flomax at that time. 4. Repeat CT brain on 05/08/2024. 5. His will come in prior to discharge for family training/shared care. 6. Lovenox 40 mg subcu daily for DVT prophylaxis-okayed by neurosurgery/neurology Charges/Coding Visit Charges Inpatient E&M: 85699 Subs Hosp L2
[2024-05-01 10:43] VITALS: BP 145/76; PULSE 95
[2024-05-01] MEDS: Metoprolol(XL)Succ 50 MG Tablet PO ×2 (10:43→21:29)
[2024-05-01] MEDS: Enoxaparin 40 MG/0.4 ML Syringe SC (12:11)
--- NOTE | 2024-05-01 13:07 | CASEMGMT ---
Social Work IDT met with patient and for Team meeting. Discussed patient's progress in PT/OT/ST/SN. Educated to Medicare approval of 12 days with DC 05/09. Offered therapy training with and scheduled, to ensure can care for pt at home. 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 SW will continue to follow for DC planning assistance. Will ReTeam next week. Hilda Del Rio MSW COMPANY MANAGER
[2024-05-01 14:00] VITALS: BP 136/78
[2024-05-01] MEDS: 0.9% Saline Lock 10 ML Syringe IV (15:14)
[2024-05-01 18:00] VITALS: BP 132/80; PULSE 80; RESP 16; TEMP 37.2; O2SAT 94
[2024-05-01] MEDS: Tamsulosin HCl 0.4 MG Capsule PO (18:42)
[2024-05-01 21:29] VITALS: BP 121/73; PULSE 88
[2024-05-01] MEDS: diazePAM 5 MG Tablet 2.5 MG PO (21:31)
[2024-05-01] MEDS: Mirtazapine 30 MG Tablet PO (21:31)
[2024-05-02] VITALS (8 sets, daily range): BP systolic 116–138; BP diastolic 70–86; PULSE 66–85; RESP 16; TEMP 36.6; O2SAT 93–95
--- NOTE | 2024-05-02 02:20 | NURSING ---
Pt c/o discomfort w/ holloway and thinks he needs to void. Clear, straw colored urine flowing through tubing into drainage bag. Pt stood using walker w/ assist of this nurse to promote relief of symptoms. Reports symptoms have improved w/ position change. Wishes to remain in recliner chair. Chair alarm in use. Given Anitra Doone cookies and chocolate pudding for a snack. Declines to wear O2 at this time. Call light w/ in reach. Will continue to monitor.
[2024-05-02] MEDS: Enoxaparin 40 MG/0.4 ML Syringe SC (06:15)
[2024-05-02] MEDS: Acetaminophen 500 MG Tablet 1000 MG PO ×3 (06:16→21:40)
[2024-05-02] MEDS: Losartan Potassium 100 MG Tablet PO (07:46)
[2024-05-02] MEDS: Cholecalciferol (VIT D3) 25 MCG TABLET (1,000 UNITS) 50 MCG PO (07:46)
[2024-05-02] MEDS: Ascorbic Acid 500 MG Tablet PO (07:46)
[2024-05-02] MEDS: Metoprolol(XL)Succ 50 MG Tablet PO ×2 (07:46→21:39)
[2024-05-02] MEDS: Senna/Docusate Sodium 1 Tablet 2 TABLET PO ×2 (07:46→21:39)
[2024-05-02] MEDS: Pantoprazole Sodium 20 MG Tablet PO (07:46)
[2024-05-02] MEDS: Atorvastatin Calcium 40 MG Tablet PO (07:46)
[2024-05-02] MEDS: Clopidogrel Bisulfate 75 MG Tablet PO (07:46)
[2024-05-02] MEDS: Aspirin E.C. 81 MG Tablet PO (07:46)
--- NOTE | 2024-05-02 08:33 | PCM.PROGNOTE ---
Subjective Subjective Afebrile VSS -blood pressure over the past 24 hours has ranged from 121/73 to 145/76. Did not receive any hydralazine as needed yesterday for elevated blood pressure. Heart rate is within normal limits. Maintaining appropriate oxygen saturation on RA while awake. Refused oxygen at bedtime last night. He is aware that his oxygen drops when he is sleeping and he himself tells me he does not feel his inspire unit is working. Oral intake - FOOD good FLUIDS fair Discussed with nursing - no problems that need addressed Reviewed the THERAPY notes Medication list reviewed. Tells me that the headaches are lessening. Slept well last night. No CP, SOB, palpitations. 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 Denies lightheadedness. No vertigo. Objective Data Objective Data Vital Signs: Vital Signs Temp Pulse Resp BP Pulse Ox O2 Del Method O2 Flow Rate 97.9 F 81 16 126/70 H 93 Room Air 0 05/02/24 06:00 05/02/24 07:46 05/02/24 06:00 05/02/24 06:00 05/02/24 06:00 05/02/24 06:00 04/27/24 21:18 FiO2 21 04/27/24 21:18 Oxygen Flow Rate (L/min) 0 Oxygen Delivery Method Room Air Weight: 203 lb 4.259 oz Body Mass Index (BMI) 489159.5 Intake & Output: Intake and Output for Last 24 Hours 04/30/24 05/01/24 05/02/24 23:59 23:59 23:59 Intake Total 3435 / 3435 1305 / 1305 Output Total 3100 / 3100 1900 / 1900 600 / 600 Balance 335 / 335 -595 / -595 -600 / -600 Lab / Micro Data 04/30/24 07:17 04/30/24 07:17 Micro: Microbiology 04/28/24 15:29 Blood Culture (Wb) - Anticubital Left Blood Culture - Preliminary No growth in 48 hours. 04/28/24 16:20 Nasal Secretion SARS-CoV-2 Antigen (Rapid) - Final Social Homelessness:: Unspecified (Not homeless) Physical Exam Const alert, oriented x3 and no apparent distress Constitutional Narrative: starting to make better eye contact with me when he is speaking with me. General Appearance: cooperative HEENT HEENT Narrative: MM are dry however the urine in the Rosenthal tubing is very pale yellow. Eyes Eyes Narrative: The R eye will deviate past midline now but, not all the way to the lateral canthus. No nystagmus. PERRL. Resp normal respiratory effort and clear to auscultation bilaterally Cardio regular rate and regular rhythm Cardio Narrative: No ectopy GI normal to inspection, nondistended, normoactive bowel sounds, soft to palpation and non-tender GI Narrative: tolerating regular textures now without N/abd pain, cramping......regular BM's Extremity no calf tenderness General Extremity: Negative for edema Skin General Skin Exam: no breakdown Rashes: no rashes Wounds: Negative for wounds noted Neuro Neuro Narrative: Still with Left homonymous hemianopia.......has some vision in the R upper nasal visual field now. R pupil now can pass midline when scanning but, not making it the entire way to the lateral canthus. Psych cooperative Attitude: No agitated Activity / Motor Behavior: Negative for restless Assessment & Plan Assessment/Plan (1) Debility: (2) Intracerebral hemorrhage: QUALIFIERS: Intracerebral hemorrhage etiology: nontraumatic Cerebral hemorrhage location: unspecified cerebral location Laterality: right Qualified Code(s): I61.9 - Nontraumatic intracerebral hemorrhage, unspecified (3) Left-sided neglect: (4) Left homonymous hemianopsia: (5) Coronary artery disease: QUALIFIERS: Coronary Disease-Associated Artery/Lesion type: [place] artery [place] vs. transplanted heart: [place] heart Associated angina: without angina Qualified Code(s): I25.10 - Atherosclerotic heart disease of [place] coronary artery without angina pectoris (6) History of PTCA 1: (7) TARIK (obstructive sleep apnea): (8) Urine retention: PLAN: Started on Flomax 04/29/24. PLAN: Plan 1. Continue therapy 2. Continue Cozaar 100 mg p.o. daily. Blood pressure is well-controlled today and at goal of less than 130/80 3. Discontinue SCDs.........pt refuses them and he is on Lovenox now for DVT prophylaxis. Charges/Coding Visit Charges Inpatient E&M: 76447 Subs Hosp L1
[2024-05-02] MEDS: 0.9% Saline Lock 10 ML Syringe IV ×2 (14:16→23:52)
--- NOTE | 2024-05-02 16:01 | CHAPLAIN ---
Type of Pastoral Visit _x__ Initial Visit ___ Follow-up Visit ___ On-call Visit ___ General Patient Visit ___ Spiritual Assessment ___ Family Conference ___ Bereavement ___ Rapid Response ___ Code Blue ___ Other (describe below) Pastoral Care Referral From ___ Patient _x__ Family ___ Nurse ___ Physician ___ Director Digital Sales ___ Dive Superintendent ___ Other (describe below) Sacrament/Intervention _x__ Active listening ___ Anointing ___ Mosque ___ Bereavement ___ Communion ___ Carina exploration ___ _x__ Life review _x__ Prayer ___ Reconciliation ___ Sacrament of Sick ___ Supportive presence ___ Wedding ___ Other (describe below) Pastoral Comments patient's family is known to this line supply; pt is open to having visit and conversation; pt explains his limitation but is encouraged with progress so far; pt has some hope for recovery; pt acknowledges thankfulness for family support and for prayers on many prayer chains; pt talks about his work life and family; pt welcomes prayer for today
[2024-05-02] MEDS: Tamsulosin HCl 0.4 MG Capsule PO (17:58)
[2024-05-02] MEDS: Mirtazapine 30 MG Tablet PO (21:39)
[2024-05-02] MEDS: diazePAM 5 MG Tablet 2.5 MG PO (21:42)
[2024-05-03] VITALS (10 sets, daily range): BP systolic 124–140; BP diastolic 67–93; PULSE 66–108; RESP 16; TEMP 36.9; O2SAT 94–95; BMI 33.6
[2024-05-03] MEDS: Acetaminophen 500 MG Tablet 1000 MG PO ×3 (05:47→21:54)
[2024-05-03] MEDS: Enoxaparin 40 MG/0.4 ML Syringe SC (05:47)
[2024-05-03] MEDS: Metoprolol(XL)Succ 50 MG Tablet PO ×2 (09:08→21:54)
[2024-05-03] MEDS: Aspirin E.C. 81 MG Tablet PO (09:08)
[2024-05-03] MEDS: Cholecalciferol (VIT D3) 25 MCG TABLET (1,000 UNITS) 50 MCG PO (09:08)
[2024-05-03] MEDS: Pantoprazole Sodium 20 MG Tablet PO (09:08)
[2024-05-03] MEDS: Losartan Potassium 100 MG Tablet PO (09:08)
[2024-05-03] MEDS: Ascorbic Acid 500 MG Tablet PO (09:08)
[2024-05-03] MEDS: Atorvastatin Calcium 40 MG Tablet PO (09:08)
[2024-05-03] MEDS: Clopidogrel Bisulfate 75 MG Tablet PO (09:08)
[2024-05-03] MEDS: Tamsulosin HCl 0.4 MG Capsule PO (17:16)
[2024-05-03] MEDS: Mirtazapine 30 MG Tablet PO (21:53)
[2024-05-03] MEDS: Senna/Docusate Sodium 1 Tablet 2 TABLET PO (21:53)
[2024-05-03] MEDS: diazePAM 5 MG Tablet 2.5 MG PO (21:55)
[2024-05-03] MEDS: hydrALAZINE 10 MG Tablet PO (22:05)
[2024-05-03] MEDS: 0.9% Saline Lock 10 ML Syringe IV (22:43)
[2024-05-04] VITALS (8 sets, daily range): BP systolic 113–154; BP diastolic 52–88; PULSE 80–98; RESP 15–18; TEMP 36.8–37.1; O2SAT 95–97
[2024-05-04] MEDS: Enoxaparin 40 MG/0.4 ML Syringe SC (05:42)
[2024-05-04] MEDS: Acetaminophen 500 MG Tablet 1000 MG PO ×3 (05:42→21:39)
[2024-05-04] MEDS: Cholecalciferol (VIT D3) 25 MCG TABLET (1,000 UNITS) 50 MCG PO (08:07)
[2024-05-04] MEDS: Atorvastatin Calcium 40 MG Tablet PO (08:07)
[2024-05-04] MEDS: Ascorbic Acid 500 MG Tablet PO (08:07)
[2024-05-04] MEDS: Metoprolol(XL)Succ 50 MG Tablet PO ×2 (08:07→21:39)
[2024-05-04] MEDS: Pantoprazole Sodium 20 MG Tablet PO (08:07)
[2024-05-04] MEDS: Aspirin E.C. 81 MG Tablet PO (08:08)
[2024-05-04] MEDS: Clopidogrel Bisulfate 75 MG Tablet PO (08:08)
[2024-05-04] MEDS: Losartan Potassium 100 MG Tablet PO (08:08)
--- NOTE | 2024-05-04 08:18 | PCM.PROGNOTE ---
Subjective Subjective Afebrile VSS -blood pressure over the past 24 hours has ranged from 113/52 to 140/93. Only above goal once and that was at bedtime. He had Hydralazine 10 mg once yesterday and that was at bedtime. Heart rate has ranged from 66-108 Maintaining appropriate oxygen saturation on RA Oral intake - FOOD good FLUIDS good Discussed with nursing - no problems that need addressed. No c/o HATHAWAY last night and he slept well per nursing. Reviewed the THERAPY notes Medication list reviewed. Current antihypertensives are metoprolol 50 mg twice daily and losartan 100 mg daily He is aware that his heart rate and blood pressure did go up some last night. He did not feel like his heart was racing or skipping beats. He tells me that sometimes it does feel like it is racing at home. No history of atrial fibrillation. He is on Metoprolol BID. He denies headache today and also denies lightheadedness. He feels his vision has improved approximately 50% since admission. He is happy with his progress. He denies chest pain, nausea/vomiting/abdominal pain, calf pain. Rosenthal catheter was discontinued this morning for a voiding trial. Denies suprapubic pain. Objective Data Objective Data Vital Signs: Vital Signs Temp Pulse Resp BP Pulse Ox O2 Del Method O2 Flow Rate 98.2 F 85 15 113/52 L 97 Room Air 0 05/04/24 05:54 05/04/24 08:07 05/04/24 05:54 05/04/24 08:07 05/04/24 05:54 05/04/24 05:54 04/27/24 21:18 FiO2 21 04/27/24 21:18 Oxygen Flow Rate (L/min) 0 Oxygen Delivery Method Room Air Weight: 204 lb 2.369 oz Body Mass Index (BMI) 33.6 Intake & Output: Intake and Output for Last 24 Hours 05/02/24 05/03/24 05/04/24 23:59 23:59 23:59 Intake Total 1560 / 1560 2510 / 2510 150 / 150 Output Total 1979 / 1979 1800 / 1800 420 / 420 Balance -420 / -420 710 / 710 -270 / -270 Lab / Micro Data 04/30/24 07:17 04/30/24 07:17 Micro: Microbiology 04/28/24 15:29 Blood Culture (Wb) - Anticubital Left Blood Culture - Final No growth in 5 days. 04/28/24 16:20 Nasal Secretion SARS-CoV-2 Antigen (Rapid) - Final Social Homelessness:: Unspecified (Not homeless) Physical Exam Const alert, oriented x3 and no apparent distress Constitutional Narrative: Making better eye contact with me at times when I talked with him. HEENT Mouth: dry mucous membranes Resp clear to auscultation bilaterally Resp Narrative: Denies shortness of breath Effort and Inspection: Negative for tachypneic Cardio regular rate, regular rhythm and no gallops GI normal to inspection, nondistended, normoactive bowel sounds, soft to palpation and non-tender GI Narrative: Denies feeling constipated. Inspection: Negative for abdominal distention Auscultation: Negative for hyperactive bowel sounds Extremity no calf tenderness General Extremity: Negative for edema Skin General Skin Exam: no breakdown Rashes: No rashes noted Wounds: Negative for wounds noted Neuro Speech: speech normal Psych affect normal Assessment & Plan Assessment/Plan (1) Debility: (2) Intracerebral hemorrhage: QUALIFIERS: Intracerebral hemorrhage etiology: nontraumatic Cerebral hemorrhage location: unspecified cerebral location Laterality: right Qualified Code(s): I61.9 - Nontraumatic intracerebral hemorrhage, unspecified (3) Left-sided neglect: (4) Left homonymous hemianopsia: (5) Coronary artery disease: QUALIFIERS: Coronary Disease-Associated Artery/Lesion type: [place] artery [place] vs. transplanted heart: [place] heart Associated angina: without angina Qualified Code(s): I25.10 - Atherosclerotic heart disease of [place] coronary artery without angina pectoris (6) History of PTCA 1: (7) TARIK (obstructive sleep apnea): (8) Urine retention: PLAN: Plan 1. Continue therapy 2. Discontinue Valium 3. BMP and HH in a.m. 4. DC Rosenthal for voiding trial today. 5. will need to follow up with Dr. Knight for Inspire/TARIK post [place]. No using the inspire and is refusing O2 while sleeping. 6. Needs a 30 day event monitor at [place]. Charges/Coding Visit Charges Inpatient E&M: 29906 Subs Hosp L1
--- NOTE | 2024-05-04 13:08 | CASEMGMT ---
Addendum entered by Hilda Del Rio 05/04/24 13:14: Dr also noted that pt is noncompliant with O2 and sleep apnea device and to disregard O2 referral at [place]. Original Note: Social Work SW followed up with IDT on therapy training. is comfortable caring for pt at home. No other needs identified. SW sent list of skilled HHC agencies with quality and resource data via [employer] link. SW to place referral. ELLA HaasW
[2024-05-04] MEDS: Tamsulosin HCl 0.4 MG Capsule PO (17:02)
[2024-05-04] MEDS: Mirtazapine 30 MG Tablet PO (21:39)
[2024-05-04] MEDS: Senna/Docusate Sodium 1 Tablet 2 TABLET PO (21:39)
[2024-05-04] MEDS: hydrALAZINE 10 MG Tablet PO (21:48)
--- NOTE | 2024-05-04 23:35 | NURSING ---
Went into patient's room to apply O2 for the night, pt states he hasn't been wearing it, but will try to wear it tonight.
[2024-05-05] VITALS (7 sets, daily range): BP systolic 124–142; BP diastolic 71–79; PULSE 73–101; RESP 16–17; TEMP 37.1–37.4; O2SAT 96–98
[2024-05-05 06:21] LABS: Hematocrit 38.2 % (40-54); Hemoglobin 12.2 g/dL (13.0-16.5)
[2024-05-05] MEDS: Acetaminophen 500 MG Tablet 1000 MG PO ×3 (06:27→21:46)
[2024-05-05] MEDS: Enoxaparin 40 MG/0.4 ML Syringe SC (06:27)
[2024-05-05 06:58] LABS: Anion Gap 7 (5-15); BUN 21 mg/dL (7-18); BUN/Creat Ratio 15.7 RATIO (10-20); Chloride 108 mmol/L (98-107); Creatinine, Serum 1.34 mg/dL (0.70-1.30); EST Glomerular Filtration Rate 57 mL/min (>60); Est Glom Filt Rate - Afr Amer 68 mL/min (>60); Estimated Creatinine Clearance 56.71 ml/min; Glucose 98 mg/dL (74-106); Potassium 4.1 mmol/L (3.5-5.1); Sodium Level 140 mmol/L (136-145)
[2024-05-05] MEDS: Senna/Docusate Sodium 1 Tablet 2 TABLET PO ×2 (07:46→20:38)
[2024-05-05] MEDS: Clopidogrel Bisulfate 75 MG Tablet PO (07:46)
[2024-05-05] MEDS: buPROPion (XL) 150 MG TABLET.XL PO (07:46)
[2024-05-05] MEDS: Atorvastatin Calcium 40 MG Tablet PO (07:46)
[2024-05-05] MEDS: Ascorbic Acid 500 MG Tablet PO (07:47)
[2024-05-05] MEDS: Pantoprazole Sodium 20 MG Tablet PO (07:47)
[2024-05-05] MEDS: Aspirin E.C. 81 MG Tablet PO (07:47)
[2024-05-05] MEDS: Losartan Potassium 100 MG Tablet PO (07:47)
[2024-05-05] MEDS: Cholecalciferol (VIT D3) 25 MCG TABLET (1,000 UNITS) 50 MCG PO (07:47)
[2024-05-05] MEDS: Metoprolol(XL)Succ 50 MG Tablet PO ×2 (07:47→20:38)
--- NOTE | 2024-05-05 11:56 | PN_ITS ---
Subjective Subjective Afebrile Blood pressure is still not consistently at goal. Blood pressure over the past 24 hours has ranged from 113/52 yesterday a.m. to 129/88, 136/78 and 142/74 over the past 12 hours. Valium was discontinued yesterday....could this be contributing to the higher BP? Maintaining appropriate oxygen saturation on room air while awake. Refuses oxygen at night. Has an inspire unit but is not using it. Postvoid residual last night was 233. Nursing to do more bladder scans post void today. Order for straight cath if residual is > 300. All lab drawn this morning was personally reviewed. Hemoglobin is 12.2 which is stable. Sodium is 140 and the potassium is 4.1. The BUN is 21 with a creatinine of 1.34 which is up from 0.95 on 04/30/2024. Could this be due to Cozaar? Could he have ANITA? He had 1510 in fluid orally yesterday and the fluid balance from yesterday was + 890 Denies lightheadedness, cephalgia, chest pain, shortness of breath, cough, nausea/vomiting/abdominal pain, dysuria and calf tenderness. Objective Data Objective Data Vital Signs: Vital Signs Temp Pulse Resp BP Pulse Ox O2 Del Method O2 Flow Rate 98.8 F 88 16 142/74 H 96 Room Air 0 05/05/24 09:43 05/05/24 09:43 05/05/24 06:14 05/05/24 09:43 05/05/24 06:14 05/05/24 06:14 04/27/24 21:18 FiO2 21 04/27/24 21:18 Oxygen Flow Rate (L/min) 0 Oxygen Delivery Method Room Air Weight: 204 lb 2.369 oz Body Mass Index (BMI) 33.6 Intake & Output: Intake and Output for Last 24 Hours 05/03/24 05/04/24 05/05/24 23:59 23:59 23:59 Intake Total 2510 / 2510 1510 / 1510 460 / 460 Output Total 1800 / 1800 620 / 620 1270 / 1270 Balance 710 / 710 890 / 890 -810 / -810 Lab / Micro Data 05/05/24 05:44 05/05/24 05:44 Labs: Laboratory Results - last 24 hr 05/05/24 05:44: Hgb 12.2 L, Hct 38.2 L, Sodium 140, Potassium 4.1, Chloride 108 H, Carbon Dioxide 25.0, Anion Gap 7, BUN 21 H, Creatinine 1.34 H, Estim Creat Clear Calc 56.71, Est GFR (MDRD) Af Amer 68, Est GFR (MDRD) Non-Af 57 L, BUN/Creatinine Ratio 15.7, Glucose 98, Calcium 9.0 Micro: Microbiology 04/28/24 15:29 Blood Culture (Wb) - Anticubital Left Blood Culture - Final No growth in 5 days. 04/28/24 16:20 Nasal Secretion SARS-CoV-2 Antigen (Rapid) - Final Social Homelessness:: Unspecified (Not homeless) Physical Exam Const alert and no apparent distress HEENT Mouth: dry mucous membranes Resp clear to auscultation bilaterally Resp Narrative: Denies shortness of breath Effort and Inspection: Negative for tachypneic Cardio regular rate, regular rhythm and no gallops GI normal to inspection, nondistended, normoactive bowel sounds, soft to palpation and non-tender Extremity no calf tenderness General Extremity: Negative for edema Skin General Skin Exam: no breakdown Rashes: No rashes noted Assessment & Plan Assessment/Plan (1) Debility: (2) Intracerebral hemorrhage: QUALIFIERS: Cerebral hemorrhage location: unspecified cerebral location Intracerebral hemorrhage etiology: nontraumatic Laterality: right Q ualified Code(s): I61.9 - Nontraumatic intracerebral hemorrhage, unspecified (3) Left-sided neglect: (4) Left homonymous hemianopsia: (5) Coronary artery disease: QUALIFIERS: Associated angina: without angina Coronary Disease- Associated Artery/Lesion type: [place] artery [place] vs. transplanted heart: [place] at[place] heart Qualified Code(s): I25.10 - Atherosclerotic heart disease of [place] coronary artery without angina pectoris (6) History of PTCA 1: (7) TARIK (obstructive sleep apnea): (8) Urine retention: (9) Acute renal failure: PLAN: Etiology? May be due to IV volume depletion due to poor fluid intake. Could also be related to Cozaar. PLAN: Plan 1. Continue therapy 2. Check a urine sodium and urine creatinine now to calculate the fractional excretion of sodium. 3. Continued encouragement to increase his fluid intake 4. Continue postvoid residuals following urination and straight cath if greater than 300 5. Check a UA today 6. Recheck a BMP in the a.m. 7. Put Cozaar on hold for now and add Amlodipine 2.5 mg daily starting today. Charges/Coding Visit Charges Inpatient E&M: 22386 Subs Hosp L2
[2024-05-05] MEDS: amLODIPine 2.5 MG Tablet PO (13:29)
[2024-05-05] MEDS: Tamsulosin HCl 0.4 MG Capsule PO (16:56)
[2024-05-05 17:41] LABS: Mucous, Urine 0 SEEN /hpf (<or=2+); Red Blood Cells-Urine 0 SEEN /hpf (0-5); Squamous Epithelial Cells - UA 0 SEEN /hpf (0-5)
[2024-05-05 18:00] LABS: Color, Urine Yellow (Yellow); Glucose, Dipstick Normal (Normal); Ketone-Dipstick Negative (Negative); Leukocyte Esterase-Dipstick Negative /ul (Negative); Nitrite-Dipstick Negative (Negative); Occult Blood-Urine Negative /ul (Negative); Protein-Dipstick Negative (Negative); Specific Gravity, Urine 1.015 (1.002-1.030); Urine Bilirubin Dipstick Negative (Negative); Urine Clarity Clear (Clear); Urine Urobilinogen Normal (Normal)
[2024-05-05 18:06] LABS: Urine Sodium 97 mmol/L (Not Establ.)
[2024-05-05 18:41] LABS: Bacteria 1+ /hpf (None Seen); White Blood Cells 0-5 SEEN /hpf (0-5)
[2024-05-05] MEDS: 0.9% Normal Saline (500mL Bag) 500 ML IV (20:37)
[2024-05-05] MEDS: Mirtazapine 30 MG Tablet PO (20:38)
[2024-05-05] MEDS: 0.9% Saline Lock 10 ML Syringe IV (20:38)
[2024-05-05] MEDS: 0.9% Normal Saline (1000mL) 1,000 ML 100 ML IV (21:43)
[2024-05-06] VITALS (9 sets, daily range): BP systolic 116–147; BP diastolic 73–85; PULSE 74–93; RESP 16–18; TEMP 36.7–37; O2SAT 94–97
[2024-05-06] MEDS: Enoxaparin 40 MG/0.4 ML Syringe SC (05:34)
[2024-05-06] MEDS: Acetaminophen 500 MG Tablet 1000 MG PO ×3 (05:35→22:17)
[2024-05-06] MEDS: hydrALAZINE 10 MG Tablet PO ×2 (05:41→18:03)
[2024-05-06 07:41] LABS: Anion Gap 6 (5-15); BUN 18 mg/dL (7-18); BUN/Creat Ratio 16.7 RATIO (10-20); Calcium,Total 8.9 mg/dL (8.5-10.1); Chloride 110 mmol/L (98-107); Creatinine, Serum 1.08 mg/dL (0.70-1.30); EST Glomerular Filtration Rate 73 mL/min (>60); Est Glom Filt Rate - Afr Amer 88 mL/min (>60); Estimated Creatinine Clearance 70.36 ml/min; Glucose 102 mg/dL (74-106); Potassium 4.1 mmol/L (3.5-5.1); Sodium Level 140 mmol/L (136-145)
[2024-05-06] MEDS: Cholecalciferol (VIT D3) 25 MCG TABLET (1,000 UNITS) 50 MCG PO (07:59)
[2024-05-06] MEDS: Ascorbic Acid 500 MG Tablet PO (08:00)
[2024-05-06] MEDS: Senna/Docusate Sodium 1 Tablet 2 TABLET PO (08:00)
[2024-05-06] MEDS: Aspirin E.C. 81 MG Tablet PO (08:00)
[2024-05-06] MEDS: Pantoprazole Sodium 20 MG Tablet PO (08:00)
[2024-05-06] MEDS: buPROPion (XL) 150 MG TABLET.XL PO (08:00)
[2024-05-06] MEDS: Atorvastatin Calcium 40 MG Tablet PO (08:02)
[2024-05-06] MEDS: 0.9% Normal Saline (1000mL) 1,000 ML 100 ML IV ×2 (08:13→18:01)
[2024-05-06] MEDS: amLODIPine 2.5 MG Tablet PO (08:13)
[2024-05-06] MEDS: Metoprolol(XL)Succ 50 MG Tablet PO ×2 (08:13→22:16)
[2024-05-06] MEDS: Clopidogrel Bisulfate 75 MG Tablet PO (08:18)
[2024-05-06] MEDS: Tamsulosin HCl 0.4 MG Capsule PO (17:40)
[2024-05-06] MEDS: Mirtazapine 30 MG Tablet PO (22:16)
[2024-05-07] VITALS (12 sets, daily range): BP systolic 118–148; BP diastolic 76–87; PULSE 74–87; RESP 16; TEMP 36.7–37.1; O2SAT 94–96
[2024-05-07] MEDS: 0.9% Normal Saline (1000mL) 1,000 ML 100 ML IV (04:22)
[2024-05-07] MEDS: Enoxaparin 40 MG/0.4 ML Syringe SC (05:11)
[2024-05-07] MEDS: Acetaminophen 500 MG Tablet 1000 MG PO ×3 (05:13→21:15)
--- NOTE | 2024-05-07 06:55 | NURSING ---
Pt bladder scanned for 812. He did not want cathed at this time. Pt did urinate 475 at one sitting. Bladder scan showed 660 after urinating. He is still refusing bladder scan at this time asking if he can try to urinate more in a bit. Pt denies being uncomfortable. Reported to next shift to Fela BOATENG to rescan pt in next hour. Pt was able to void over 800 last chago in 2 different sessions.
[2024-05-07] MEDS: Cholecalciferol (VIT D3) 25 MCG TABLET (1,000 UNITS) 50 MCG PO (09:18)
[2024-05-07] MEDS: Aspirin E.C. 81 MG Tablet PO (09:18)
[2024-05-07] MEDS: Senna/Docusate Sodium 1 Tablet 2 TABLET PO ×2 (09:18→21:12)
[2024-05-07] MEDS: Pantoprazole Sodium 20 MG Tablet PO (09:19)
[2024-05-07] MEDS: amLODIPine 2.5 MG Tablet PO (09:19)
[2024-05-07] MEDS: Atorvastatin Calcium 40 MG Tablet PO (09:19)
[2024-05-07] MEDS: Metoprolol(XL)Succ 50 MG Tablet PO ×2 (09:19→21:12)
[2024-05-07] MEDS: buPROPion (XL) 150 MG TABLET.XL PO (09:19)
[2024-05-07] MEDS: Ascorbic Acid 500 MG Tablet PO (09:19)
[2024-05-07] MEDS: Clopidogrel Bisulfate 75 MG Tablet PO (09:20)
[2024-05-07] MEDS: hydrALAZINE 10 MG Tablet PO ×3 (09:21→18:14)
[2024-05-07] MEDS: Tamsulosin HCl 0.4 MG Capsule PO (17:12)
[2024-05-07] MEDS: 0.9% Saline Lock 10 ML Syringe IV (21:10)
[2024-05-07] MEDS: Mirtazapine 30 MG Tablet PO (21:12)
[2024-05-08] VITALS (8 sets, daily range): BP systolic 119–149; BP diastolic 54–87; PULSE 75–87; RESP 16–18; TEMP 36.5–36.8; O2SAT 94–96
--- NOTE | 2024-05-08 06:00 | CT_ITS ---
EXAM: CT HEAD WITHOUT INTRAVENOUS CONTRAST CLINICAL INDICATION: F/U Right partial hemorrhage TECHNIQUE: Multiple axial images were obtained of the head without intravenous contrast. This CT exam was performed using one or more of the following dose reduction techniques: automated exposure control, adjustment of the mA and/or kV according to patient size, and/or use of iterative reconstruction technique. RADIATION DOSE: Total DLP: 796.11 mGy-cm. COMPARISON: No relevant prior studies available. FINDINGS: BRAIN AND EXTRA-AXIAL SPACES: An ovoid hyperdense hematoma is seen within the posterior right parietal lobe, with this parenchymal hematoma measuring up to 4.8 x 2.2 x 3.5 cm in maximal diameter, for a hematoma volume of 18.5 cc. A moderate halo of vasogenic edema surrounds the hematoma, with edema radiating superiorly into the right parietal cortex near the vertex, and with edema radiating inferiorly into the right occipital lobe. There is associated anterior displacement and effacement of the atrium of the right lateral ventricle as well as effacement of the right occipital horn. The margins of the hematoma are indistinct, consistent with an acute to subacute hematoma rather than hyperacute hematoma, as noted in the clinical history. A trace of acute subarachnoid blood is noted within a few of the sulci adjacent to the parenchymal hematoma. No intraventricular rupture of the hematoma is identified. There is no associated midline shift. Right cerebral cortex sulci at the vertex are mildly effaced by the as compared to the left. No abnormal ventricular dilatation is noted. Minimal patchy chronic small vessel ischemic changes are noted within the periventricular deep white matter tracts. Posterior fossa structures are unremarkable. No hydrocephalus. Basal cisterns are patent. BONES/JOINTS: Unremarkable. No discrete lytic or blastic abnormalities. No linear or depressed skull fracture. SOFT TISSUES: Unremarkable. No scalp hematoma. VASCULATURE: No vascular hyperdensity is identified. Atherosclerotic calcification noted within the cavernous carotid arteries. SINUSES: Lobulated mucosal thickening noted in the base of the left maxillary antrum. No paranasal sinus air-fluid levels. MASTOID AIR CELLS: Unremarkable. Clear. ORBITS: Visualized globes, extraocular muscles, optic nerves and retrobulbar fat appear unremarkable. CT/Brain/Head without Contrast IMPRESSION: Acute to subacute 4.8 cm hematoma within the left posterior parietal bone, with a halo of surrounding vasogenic edema. Trace of adjacent subarachnoid hemorrhage within the parietal sulci. No hydrocephalus or intraventricular hemorrhage. No midline shift. Electronically Signed: Santos Jordan MD at 7:38 EDT ,
[2024-05-08] MEDS: Acetaminophen 500 MG Tablet 1000 MG PO ×3 (06:17→22:02)
[2024-05-08] MEDS: Enoxaparin 40 MG/0.4 ML Syringe SC (06:18)
[2024-05-08] MEDS: hydrALAZINE 10 MG Tablet PO (06:19)
--- NOTE | 2024-05-08 07:23 | NURSING ---
Pt off the floor for CT scan.
[2024-05-08] MEDS: Metoprolol(XL)Succ 50 MG Tablet PO ×2 (07:54→22:03)
[2024-05-08] MEDS: buPROPion (XL) 150 MG TABLET.XL PO (07:54)
[2024-05-08] MEDS: Aspirin E.C. 81 MG Tablet PO (07:55)
[2024-05-08] MEDS: Atorvastatin Calcium 40 MG Tablet PO (07:55)
[2024-05-08] MEDS: Cholecalciferol (VIT D3) 25 MCG TABLET (1,000 UNITS) 50 MCG PO (07:55)
[2024-05-08] MEDS: Ascorbic Acid 500 MG Tablet PO (07:55)
[2024-05-08] MEDS: amLODIPine 2.5 MG Tablet PO (07:55)
[2024-05-08] MEDS: Clopidogrel Bisulfate 75 MG Tablet PO (07:55)
[2024-05-08] MEDS: Senna/Docusate Sodium 1 Tablet 2 TABLET PO ×2 (07:56→21:58)
[2024-05-08] MEDS: Pantoprazole Sodium 20 MG Tablet PO (07:57)
--- NOTE | 2024-05-08 10:29 | PCM.PROGNOTE ---
Subjective Subjective Dennis was seen on team rounds today. His Vika was present in the room. All their questions were answered to their satisfaction. Afebrile VSS -blood pressure since Wednesday has ranged from 116/78 to 149/85. Only 2 BP's were within goal and they were both in the AM.......this AM the BP is 149/85. Cozaar has been on hold due to acute renal failure Wednesday. Heart rate is within normal limits. Maintaining appropriate oxygen saturation on RA Oral intake - FOOD good FLUIDS fair to good Discussed with nursing -consistently retaining large amounts of urine and requiring straight cath. Rosenthal was reinserted on 05/07/2024. Reviewed the THERAPY notes Medication list reviewed. Had 3 doses of hydralazine yesterday for blood pressure above goal and has had 1 dose today so far. Fractional excretion of sodium was consistent with prerenal azotemia and he received IV fluids over the weekend. Cozaar has been on hold because of the acute renal failure. Blood pressures have been elevated. A recheck on [facility] on 05/06/2024 showed the creatinine to be 1.08 which is within his baseline. The BUN was down to 18. CT scan of the head today showed a hematoma in the posterior right parietal lobe measuring 4.8 x 2.2 x 3.5 cm. There was a moderate halo of vasogenic edema surrounding the hematoma. There was associated anterior displacement and effacement of the atrium of the right lateral ventricle as well as effacement of the right occipital horn. There was a trace of acute subarachnoid blood noted in a few's of the sulci adjacent to the parenchymal hematoma. There was no abnormal ventricular dilatation. There was no hydrocephalus. Objective Data Objective Data Vital Signs: Vital Signs Temp Pulse Resp BP Pulse Ox O2 Del Method O2 Flow Rate 98.3 F 75 17 149/85 H 96 Room Air 0 05/08/24 06:10 05/08/24 07:54 05/08/24 06:10 05/08/24 07:54 05/08/24 06:10 05/08/24 06:10 04/27/24 21:18 FiO2 21 05/07/24 21:20 Oxygen Flow Rate (L/min) 0 Oxygen Delivery Method Room Air Weight: 204 lb 2.369 oz Body Mass Index (BMI) 33.6 Intake & Output: Intake and Output for Last 24 Hours 05/06/24 05/07/24 05/08/24 23:59 23:59 23:59 Intake Total 3670 / 3670 3470 / 3470 660 / 660 Output Total 2425 / 2425 5690 / 5690 1100 / 1100 Balance 1245 / 1245 -2220 / -2220 -440 / -440 Lab / Micro Data 05/08/24 10:57 05/08/24 10:57 Micro: Microbiology 04/28/24 15:29 Blood Culture (Wb) - Anticubital Left Blood Culture - Final No growth in 5 days. 04/28/24 16:20 Nasal Secretion SARS-CoV-2 Antigen (Rapid) - Final Radiography Diagnostic Testing: Radiology Impression Brain CT 05/08/24 06:00 IMPRESSION: Acute to subacute 4.8 cm hematoma within the left posterior parietal bone, with a halo of surrounding vasogenic edema. Trace of adjacent subarachnoid hemorrhage within the parietal sulci. No hydrocephalus or intraventricular hemorrhage. No midline shift. Electronically Signed: Santos Jordan MD at 7:38 EDT , Social Homelessness:: Unspecified (Not homeless) Physical Exam Const alert, oriented x3 and no apparent distress Constitutional Narrative: Sitting in the recliner at the bedside. General Appearance: cooperative and comfortable Resp normal respiratory effort and clear to auscultation bilaterally Resp Narrative: Denies shortness of breath Effort and Inspection: able to speak in complete sentences; Negative for tachypneic Cardio regular rate, regular rhythm, no murmurs, no rub and no gallops Cardio Narrative: No ectopy GI normal to inspection, nondistended, normoactive bowel sounds, soft to palpation and non-tender GI Narrative: No guarding with palpation. Having regular bowel movements. Narrative: Rosenthal catheter is in place. Urine in the Rosenthal tubing is pale yellow and clear. He had some mild hematuria yesterday but this is resolved. Extremity no calf tenderness General Extremity: Negative for edema Skin General Skin Exam: no breakdown Rashes: No rashes noted Assessment & Plan Assessment/Plan (1) Debility: (2) Intracerebral hemorrhage: QUALIFIERS: Intracerebral hemorrhage etiology: nontraumatic Cerebral hemorrhage location: unspecified cerebral location Laterality: right Qualified Code(s): I61.9 - Nontraumatic intracerebral hemorrhage, unspecified (3) Left-sided neglect: (4) Left homonymous hemianopsia: (5) Coronary artery disease: QUALIFIERS: Coronary Disease-Associated Artery/Lesion type: [place] artery [place] vs. transplanted heart: [place] heart Associated angina: without angina Qualified Code(s): I25.10 - Atherosclerotic heart disease of [place] coronary artery without angina pectoris (6) History of PTCA 1: (7) TARIK (obstructive sleep apnea): (8) Urine retention: (9) Acute renal failure: QUALIFIERS: Acute renal failure type: unspecified Qualified Code(s): N17.9 - Acute kidney failure, unspecified (10) Nonalcoholic hepatosteatosis: (11) Left carotid artery stenosis: (12) Hyperlipidemia, mixed: (13) Prediabetes: (14) Essential (primary) hypertension: PLAN: Plan 1. Plan discharge home tomorrow 2. Appointment scheduled with urology for tomorrow post discharge-Rosenthal will remain in place at discharge 3. DC amlodipine and start hydralazine 50 mg p.o. twice daily 4. BMP and HH today 5. Continue to hold losartan at this time until I see the BMP. I suspect the acute renal failure was all secondary to prerenal azotemia and not due to Cozaar. 6. Have the CT head pushed over to [facility] so that his neurosurgeon can compare to the last CT head had prior to transfer to acute rehab. I suspect there has been improvement in the CT head since he has no HATHAWAY any longer and there is no ventricular dilation. 7. DC Wellbutrin. Recommended he follow up with a SW or psychologist to discuss his sx of depression and help him to deal with the recent events. The Wellbutrin may be increasing the BP. Dennis denied being on an antidepressant and when I pointed out that Remeron is an antidepressant he tells me that Dr. Phillips started him on this for depression. Charges/Coding Visit Charges Inpatient E&M: 86606 Subs Hosp L2
[2024-05-08 11:04] LABS: Hematocrit 42.6 % (40-54); Hemoglobin 13.7 g/dL (13.0-16.5)
[2024-05-08 11:34] LABS: Anion Gap 8 (5-15); BUN 11 mg/dL (7-18); BUN/Creat Ratio 8.7 RATIO (10-20); Calcium,Total 9.6 mg/dL (8.5-10.1); Chloride 107 mmol/L (98-107); Creatinine, Serum 1.26 mg/dL (0.70-1.30); EST Glomerular Filtration Rate 61 mL/min (>60); Est Glom Filt Rate - Afr Amer 73 mL/min (>60); Estimated Creatinine Clearance 60.31 ml/min; Glucose 89 mg/dL (74-106); Potassium 4.2 mmol/L (3.5-5.1); Sodium Level 139 mmol/L (136-145)
[2024-05-08] MEDS: hydrALAZINE 50 MG Tablet PO ×2 (11:56→22:03)
--- NOTE | 2024-05-08 13:02 | CASEMGMT ---
Social Work IDT met with patient and for Team meeting. Discussed patient's progress in PT/OT/ST/SN. Educated to Medicare [place] 05/09. is able to provide 08/03 care at home. SW offered to provide skilled HHC list of agencies with quality and resource data via [employer] to select provider for PT/OT/ST/SN/HATHAWAY. has not selected a provider yet, and will notify this worker this afternoon. Pt has no DME needs. to transport at home. discussed managing depression and anxiety and recommending counseling at [place]. [facility] provided counseling resources. Plan: DC home with 05/09, [facility] PT/OT/ST/SN/HATHAWAY/[facility] - for mental health follow up ELLA HaasW
[2024-05-08] MEDS: Tamsulosin HCl 0.4 MG Capsule PO (17:19)
[2024-05-08] MEDS: 0.9% Saline Lock 10 ML Syringe IV (22:02)
[2024-05-08] MEDS: Mirtazapine 30 MG Tablet PO (22:03)
[2024-05-09 06:00] VITALS: BP 129/91; PULSE 82; RESP 16; TEMP 37; O2SAT 96
[2024-05-09] MEDS: Acetaminophen 500 MG Tablet 1000 MG PO (06:54)
[2024-05-09] MEDS: Enoxaparin 40 MG/0.4 ML Syringe SC (06:54)
[2024-05-09] MEDS: Cholecalciferol (VIT D3) 25 MCG TABLET (1,000 UNITS) 50 MCG PO (08:09)
[2024-05-09] MEDS: Atorvastatin Calcium 40 MG Tablet PO (08:09)
[2024-05-09] MEDS: Pantoprazole Sodium 20 MG Tablet PO (08:09)
[2024-05-09 08:10] VITALS: BP 129/91; PULSE 82
[2024-05-09] MEDS: Clopidogrel Bisulfate 75 MG Tablet PO (08:10)
[2024-05-09] MEDS: buPROPion (XL) 150 MG TABLET.XL PO (08:10)
[2024-05-09] MEDS: Ascorbic Acid 500 MG Tablet PO (08:10)
[2024-05-09] MEDS: Metoprolol(XL)Succ 50 MG Tablet PO (08:10)
[2024-05-09] MEDS: Aspirin E.C. 81 MG Tablet PO (08:10)
[2024-05-09] MEDS: Senna/Docusate Sodium 1 Tablet 2 TABLET PO (08:10)
[2024-05-09 08:11] VITALS: BP 129/91; PULSE 82
[2024-05-09] MEDS: hydrALAZINE 50 MG Tablet PO (08:11)
--- NOTE | 2024-05-09 08:22 | CASEMGMT ---
Addendum entered by Hilda Del Rio 05/09/24 13:53: SW has not received return communication from [facility]. SW phoned referral to [facility], who can accept. SOC 05/10. Addendum entered by Hilda Del Rio 05/09/24 11:45: SW phoned [facility] and left VM. Addendum entered by Hilda Del Rio 05/09/24 09:38: selected [facility] first and [facility] second. SW sent referral to [facility] via [employer] and faxed for timeliness. Addendum entered by Hilda Del Rio 05/09/24 09:25: Received return call from . confused about which agency to select. SW educated to options and resent [facility] link to 's phone for selection. Original Note: Social Work SW had not received follow up from . SW phoned ; left VM requesting call back with [facility] agency. ELLA Haas
--- NOTE | 2024-05-09 08:36 | PCM.DC ---
Discharge Instructions Diet Discharge Diet: - (Low fat, low salt diet) Activity Discharge Activity: May Not Drive and May Shower Weight Bearing Status: Full weight bearing Keep extremity elevated above heart level: Legs Dressing / Incision Call your doctor if you observe: Fever of 101 or Higher, Shortness of breath, Dizziness, Fainting spells, Swelling in the ankles, Chest pain, Increased palpitations (irregular heartbeat), Calf discomfort, Uncontrolled pain and - (STROKE symptoms: facial droop, slurred speech, inability to get words out, weakness on 1 side of the body and not the other, numbness on 1 side of the body and not the other, inability to maintain your balance sitting or standing, vertigo. ) Follow Up Care When: Multiple follow up appts have been made for you. They are listed later in this document. Test Results: Test results from this visit will be discussed in further detail at your follow-up appointment, if applicable. Pending Tests Upon Discharge: none Discharge Plan Admission Admit Date/Time: 04/27/24 10:42 Primary Reason for Your Visit: POST STROKE DEBILITY regained 20 so I think according to MRI he is Attending Provider: Helena Ann Primary Care Provider: Regis Phillips Instructions Patient Instructions: Discharge Instructions for Stroke Additional Instructions / Restrictions: 1. Ideally your BP should be less than 130/80. Your BP is not consistently less than 130/80. It tends to be higher in the AM. We added a new medication on Tuesday 05/08 and the BP has come down somewhat. The new med will take a few days until it reaches its maximum benefit. Check you BP a few times during the day. If the BP is > 145/85 it is OK to take a Clonidine. Clonidine can slow the heart rate down but, your heart rate is mostly in the 80's so it should be OK. 2. IF you start having headaches again or you are nauseated and vomiting or you have any of the stroke symptoms listed elsewhere in this document call 911 and go to the ER. 3. We made a referral to a drivers rehab program in [place] at [facility]. They will test you to make sure you are safe to drive a car. This referral is good for 90 days. right now you are still missing things on your left side and your attention and ability to focus have been affected by the stroke. You are NOT safe to drive. 4. Urine retention can lead to infections and kidney failure. This is why you have a catheter. Sometimes strokes can cause urine retention but, it can also happen when there are problems with the prostate. You have an appt to see the urologist at 2 PM on the day of discharge. 5. You will need to make an appt with Dr. Knight to follow up on the sleep apnea and the inspire device. We checked the oxygen at night while you were sleeping and it occasionally drops to less than 90 but, the times it does this are very brief and I do not think you need home oxygen. You have not wanted to wear oxygen at night when it was ordered on rehab. 6. You will need a lipid panel and a liver panel in 1 months time. Since you have known coronary artery disease and you have now required a stent I recommend that you are compliant with the statin. when you have known artery disease in the heart you most likely have artery disease in other areas of the body. High cholesterol contributes to the build up of fat inside the arteries and can reduce blood flow in those arteries. Statins, along with good BP control, can keep this from happening and it decreases the risk for heart attacks and strokes going forward. So far you have had no adverse effects taking the Statin every night. You also have a condition called hepatic steatosis due to uncontrolled cholesterol. this is the infiltration of fat into the liver and it can lead to cirrhosis if not controlled. 7. If you or Caridad have any questions after you leave rehab please do not hesitate to call me. I will be sending a copy of the discharge instructions and a discharge summary to Dr. Thompson, Dr. Phillips, Dr. Rubin and to Dr. Dong (development coach). OFFICE: [phone] CELL: [phone] NURSES STATION ON REHAB: [phone] I am awaiting a call from neurosurgery, Dr. Thompson, at the time of DC to discuss the results of the CT brain done on 05/08/24. you are being sent home on DAPT (dual antiplatelet therapy) with Aspirin and Plavix (clopidogrel). If this changes when I am able to speak to Dr. Thompson I will call you at home. Discharge Orders/Prescriptions Prescriptions: New metoprolol succinate 50 mg Tablet Extended Release 24 Hr 50 mg PO BID Qty: 60 0RF aspirin 81 mg Tablet,Delayed Release (Dr/Ec) 81 mg PO BREAKFAST Qty: 1 0RF ascorbic acid (vitamin C) 500 mg Tablet 500 mg PO DAILY Qty: 1 0RF tamsulosin 0.4 mg Capsule 0.4 mg PO DAILY@1730 Qty: 30 0RF hydralazine 50 mg Tablet 50 mg PO BID Qty: 60 0RF Continued cholecalciferol (vitamin D3) 50 mcg (2,000 unit) capsule 50 mcg PO DAILY mirtazapine 30 mg tablet 30 mg PO QHS pantoprazole [Protonix] 20 mg tablet,delayed release (DR/EC) 20 mg PO DAILY alpha lipoic acid 100 mg capsule 100 mg PO BID nitroglycerin 0.4 mg tablet, sublingual 0.4 mg sublingual Q5M PRN (Reason: chest pain) Rx Instructions: do not exceed 3 doses per episode acetaminophen [Tactinal] 325 mg tablet 1,000 mg PO Q8H PRN atorvastatin 40 mg tablet 40 mg PO DAILY Qty: 30 0RF clopidogrel [Plavix] 75 mg tablet 75 mg PO DAILY Qty: 30 0RF Discontinued ascorbate calcium (vitamin C) 500 mg tablet 25 mg PO DAILY metoprolol succinate 50 mg tablet extended release 24 hr 25 mg PO BID losartan [Cozaar] 50 mg tablet 50 mg PO DAILY hydrochlorothiazide 25 mg tablet 25 mg PO DAILY diazepam [Valium] 5 mg tablet 5 mg PO BID PRN (Reason: muscle spasm) Referrals / Follow Up: Jack Dong MD [Med Staff - Active Staff] - 05/10/24 8:10 am (Please bring discharge papers from the hospital to Appt. ) Jasvir Rubin MD [Med Staff - Active Staff] - 05/09/24 2:00 pm Felix Thompson MD [Non-Staff] - 05/15/24 10:00 am Regis Phillips DO [Primary Care Provider] - 05/16/24 1:00 pm Ashlyn Birmingham NP, NP-C [Non-Staff] - 05/16/24 10:00 am Disposition Disposition (needs filled in before D/C Order can be placed): Home Health Service
--- NOTE | 2024-05-09 08:39 | CASEMGMT ---
Social Work SW faxed referral to [facility], per request. Hilda Del Rio [employer] SAL[employer]IST[employer]
[2024-05-09 09:30] VITALS: BP 125/74; PULSE 74
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
[2024-05-09 14:00] VITALS: BP 125/74; PULSE 77; RESP 17; TEMP 36.7; O2SAT 97
--- NOTE | 2024-05-09 14:02 | NURSING ---
discharged home with spouse. discharge instructions, medications and appointments reviewed with pt and . denies questions or concerns
== END 2024-05-09 14:04 | disposition home health service (06) | DRG 65 ==
PROVIDERS: Admitting Provider Internal Medicine; Referring Provider Internal Medicine; Visit Provider Internal Medicine
DX: I61.8 Other nontraumatic intracerebral hemorrhage (principal); K56.7 Ileus, unspecified; R78.81 Bacteremia; R41.4 Neurologic neglect syndrome; H53.462 Homonymous bilateral field defects, left side; I44.1 Atrioventricular block, second degree; K75.81 Nonalcoholic steatohepatitis (NASH); I60.8 Other nontraumatic subarachnoid hemorrhage; F32.9 Major depressive disorder, single episode, unspecified; I10 Essential (primary) hypertension; J45.990 Exercise induced bronchospasm; G47.33 Obstructive sleep apnea (adult) (pediatric); E78.2 Mixed hyperlipidemia; F41.9 Anxiety disorder, unspecified; I25.10 Atherosclerotic heart disease of native coronary artery without angina pectoris; K21.9 Gastro-esophageal reflux disease without esophagitis; R33.9 Retention of urine, unspecified; R73.03 Prediabetes; Z20.822 Contact with and (suspected) exposure to COVID-19; F43.10 Post-traumatic stress disorder, unspecified; Z79.899 Other long term (current) drug therapy; Z79.02 Long term (current) use of antithrombotics/antiplatelets; Z79.82 Long term (current) use of aspirin
CPT/HCPCS: 36415; 70450; 74022; 80048; 80053; 81001; 82570; 83036; 83735; 84100; 84300; 85014; 85018; 85025; 87040; 87811; 92523; 92610; 94762; 97110; 97112; 97116; 97129; 97130; 97162; 97166; 97530; 97535; 97802; 97803; J7030; J7040; A4216

== ENCOUNTER → 2024-12-08 | Outpatient (CLI) | payer MEDICARE, BC, SELFPAY ==
[2024-12-08 13:44] LABS: Anion Gap 13 (5-15); BUN 26 mg/dL (4-19); BUN/Creat Ratio 20.3 RATIO (10-20); Calcium,Total 9.7 mg/dL (7.6-11.0); Carbon Dioxide 23.9 mmol/L (21.0-32.0); Chloride 103 mmol/L (98-108); Creatinine, Serum 1.28 mg/dL (0.70-1.20); EST Glomerular Filtration Rate 61 (>60); Glucose 134 mg/dL (70-99); Potassium 3.9 mmol/L (3.3-5.1); Sodium Level 140 mmol/L (133-145)
== END | disposition home or self-care (01) ==
LOC: LAB 12:48
PROVIDERS: Referring Provider Physician Assistant Medical; Visit Provider Physician Assistant Medical
DX: Z51.81 Encounter for therapeutic drug level monitoring (principal); Z79.899 Other long term (current) drug therapy
CPT/HCPCS: 36415; 80048

== ENCOUNTER → 2025-02-22 | Outpatient (CLI) | payer MEDICARE, BC, SELFPAY ==
--- NOTE | 2025-02-22 13:22 | MRI_ITS ---
PROCEDURE: SPINE LUMBAR (ROUTINE) 02/22/2025 REASON FOR EXAM: PAIN, STENOSIS TECHNIQUE: SPINE LUMBAR (ROUTINE) COMPARISON: The prior radiograph dated 02.15.2025 and MR study dated were reviewed FINDINGS: There is minimal anterolisthesis of L4 vertebra likely secondary to L4-5 facet joint arthropathy. Reduced lumbar lordosis. There is no substantial scoliosis. Normal conus medullaris and the cord roots. Lumbar spine degenerative changes are seen in the form of marginal osteophytes of the opposing vertebral endplates and reduced height and bright T2 signal of the intervertebral discs denoting degeneration. No Modic changes seen. T12-L1: Normal endplates. Reduced disc height and hydration. A 2 mm central left paracentral posterior disc protrusion is seen abutting the thecal sac. Normal bilateral facet joints. Normal central canal and bilateral lateral recesses. Normal bilateral intervertebral neural foramina. Unchanged since the last study. L1-2: Normal endplates. Normal disc morphology. Reduced disc height and hydration denoting its degeneration. Normal bilateral facet joints. Normal central canal and bilateral lateral recesses. Normal bilateral intervertebral neural foramina. L2-3: A 1-2 mm diffuse posterior disc bulge is seen mildly impinging on the exiting nerve roots bilaterally and inducing mild bilateral neuroforaminal narrowing. Normal central canal and bilateral lateral recesses. Mild bilateral facet joint arthropathy is seen. Unchanged since the last study. L3-4: There is a central and right paracentral posterior disc herniation with newly noted large migrating disc material seen extending for 1.7 cm caudally seen impinging on the right L4 nerve and its lateral recess. There is moderate right and mild left neuroforaminal narrowing. Mild bilateral facet joints arthropathy. There is moderate spinal canal stenosis. Normal left lateral recesses. L4-5: A 4 mm posterior disc bulge is seen impinging on the exiting nerve roots bilaterally and inducing moderate bilateral neuroforaminal narrowing. Severe bilateral facet joint arthropathy and associated ligamentum flavum hypertrophy seen inducing severe spinal canal stenosis. Normal lateral recesses. Unchanged since the last study. L5-S1: A 2 mm diffuse posterior disc bulge is seen mildly impinging on the exiting nerve roots bilaterally and inducing mild bilateral neuroforaminal narrowing. Normal central canal and bilateral lateral recesses. Mild bilateral facet joint arthropathy is seen. Unchanged since the last study. Normal visualized sacral ala. No marrow infiltrations. Normal visualized paraspinous soft tissue structures. MRI/Spine Lumbar (Routine) IMPRESSION: Grade I degenerative spondylolisthesis of L4 vertebra. Lumbar spondylosis. T12-L1: Normal endplates. Reduced disc height and hydration. A 2 mm central left paracentral posterior disc protrusion is seen abutting the thecal sac. Normal bilateral facet joints. Normal central canal a nd bilateral lateral recesses. Normal bilateral intervertebral neural foramina. Unchanged since the last study. L1-2: Normal endplates. Normal disc morphology. Reduced disc height and hydrat ion denoting its degeneration. Normal bilateral facet joints. Normal central canal and bilateral lateral recesses. Normal philip ateral intervertebral neural foramina. L2-3: A 1-2 mm diffuse posterior disc bulge is seen mildly impinging on the exi ting nerve roots bilaterally and inducing mild bilateral neuroforaminal narrowing. Normal central canal and bilateral lateral recesses. Mild bilateral facet joint arthropathy is seen. Unchanged since the last study. L3-4: There is a central and right paracentral posterior disc herniation with n ewly noted large migrating disc material seen extending for 1.7 cm caudally seen impinging on the right L4 nerve and its late ral recess. There is moderate right and mild left neuroforaminal narrowing. Mild bilateral facet joints arthropathy. There is mo derate spinal canal stenosis. Normal left lateral recesses. L4-5: A 4 mm posterior disc bulge is seen impinging on the exiting nerve roots bilaterally and inducing moderate bilateral neuroforaminal narrowing. Severe bilateral facet joint arthropathy and associat ed ligamentum flavum hypertrophy seen inducing severe spinal canal stenosis. Normal lateral recesses. Unchanged since the last study. L5-S1: A 2 mm diffuse posterior disc bulge is seen mildly impinging on the exit ing nerve roots bilaterally and inducing mild bilateral neuroforaminal narrowing. Normal central canal and bilateral lateral recesses. Mild bilateral facet joint arthropathy is seen. Unchanged since the last study. Reading Location: [place] [id number]
== END | disposition home or self-care (01) ==
LOC: MRI 12:53
PROVIDERS: Referring Provider Student in an Organized Health Care Education/Training Program; Visit Provider Student in an Organized Health Care Education/Training Program
DX: M48.062 Spinal stenosis, lumbar region with neurogenic claudication (principal); M51.362 Other intervertebral disc degeneration, lumbar region with discogenic back pain and lower extremity pain
CPT/HCPCS: 72148

== ENCOUNTER → 2025-05-03 | Outpatient (CLI) | payer MEDICARE, BC, SELFPAY ==
--- NOTE | 2025-05-03 12:30 | RAD_ITS ---
PROCEDURE: CHEST PA AND LATERAL 05/03/2025 REASON FOR EXAM: PERSISTENT COUGH, SHORTNESS OF BREATH TECHNIQUE: Procedure Code: RADCXR Modality: DX Procedure: CHEST PA AND LATERAL COMPARISON: 04/28/2024 FINDINGS: Battery pack for neurostimulator projects over the right chest wall. The heart mediastinum are normal. Coronary arterial stent present. No acute cardiopulmonary process. Lungs are clear. No pneumothorax or effusion present. Multilevel degenerative disc disease through the spine. Upper abdomen is within normal limits. RAD/Chest PA and Lateral IMPRESSION: No acute cardiopulmonary process or significant change. Reading Location: [id number]
[2025-05-03 13:35] LABS: Hematocrit 45.9 % (40-54); Hemoglobin 15.3 g/dL (13.0-16.5); Immature Granulocytes Count 0.020 X10^3/uL (0.0-0.0); Mean Corp Hgb Conc 33.3 g/dL (32-36); Mean Corpuscular Volume 92.7 fL (80-94); Mean Platelet Vol. 9.6 fl (6.2-12.0); NRBC Flagged by Analyzer 0 % (0-5); Platelet Count 279 K/mm3 (150-450); RBC Distribution Width CV 13.4 % (11.6-14.6); RBC Distribution Width SD 45.1 fl (35.1-43.9); Red Blood Count 4.95 M/mm3 (4.6-6.2); White Blood Count 7.2 K/mm3 (4.4-11.0)
[2025-05-03 14:31] LABS: Anion Gap 14 (5-15); BUN 24 mg/dL (4-19); BUN/Creat Ratio 21.7 RATIO (10-20); Calcium,Total 9.4 mg/dL (7.6-11.0); Carbon Dioxide 22.2 mmol/L (21.0-32.0); Chloride 106 mmol/L (98-108); Glucose 103 mg/dL (70-99); Potassium 4.3 mmol/L (3.3-5.1); Pro- Brain NATRIURETIC PEPTIDE < 36 pg/mL (<=900)
== END | disposition home or self-care (01) ==
PROVIDERS: Referring Provider Nurse Practitioner Family; Visit Provider Nurse Practitioner Family
DX: R06.02 Shortness of breath (principal); R05.3 Chronic cough; Z51.81 Encounter for therapeutic drug level monitoring; Z79.899 Other long term (current) drug therapy; I25.10 Atherosclerotic heart disease of native coronary artery without angina pectoris; J45.909 Unspecified asthma, uncomplicated
CPT/HCPCS: 36415; 71046; 80048; 83880; 85025

== ENCOUNTER 2025-06-12 11:45 | Inpatient (IN) | payer MEDICARE, BC, SELFPAY ==
--- NOTE | 2025-05-31 09:25 | EKG12_ITS ---
Test Reason : PREOP Blood Pressure : */* mmHG Vent. Rate : 66 BPM Atrial Rate : 66 BPM P-R Int : 204 ms QRS Dur : 90 ms QT Int : 412 ms P-R-T Axes : 31 -11 29 degrees QTcB Int : 431 ms Normal sinus rhythm Normal ECG Confirmed by RICO JOHNSON, ILIR ([id number]), image editor AYDEN NEAL ([id number]) on 05/31/2025 1:18:27 PM Referred By: Saad Vidales Confirmed By: ILIR GÓMEZ MD
[2025-05-31 10:59] LABS: Hematocrit 45.4 % (40-54); Hemoglobin 14.4 g/dL (13.0-16.5); Immature Granulocytes Count 0.020 X10^3/uL (0.0-0.0); Mean Corp Hgb Conc 31.7 g/dL (32-36); Mean Corpuscular Volume 95.0 fL (80-94); Mean Platelet Vol. 9.2 fl (6.2-12.0); NRBC Flagged by Analyzer 0 % (0-5); Platelet Count 263 K/mm3 (150-450); RBC Distribution Width CV 13.1 % (11.6-14.6); RBC Distribution Width SD 45.7 fl (35.1-43.9); Red Blood Count 4.78 M/mm3 (4.6-6.2); White Blood Count 6.1 K/mm3 (4.4-11.0)
[2025-05-31 11:51] LABS: Anion Gap 13 (5-15); BUN 21 mg/dL (4-19); BUN/Creat Ratio 18.9 RATIO (10-20); Calcium,Total 9.3 mg/dL (7.6-11.0); Carbon Dioxide 23.5 mmol/L (21.0-32.0); Chloride 104 mmol/L (98-108); Glucose 106 mg/dL (70-99); HIV Nonreactive (Nonreactive); Hepatitis C Antibody Nonreactive (Nonreactive); Potassium 4.4 mmol/L (3.3-5.1)
[2025-05-31 12:19] LABS: Magnesium 2.2 mg/dL (1.5-2.2)
--- NOTE | 2025-05-31 15:31 | PAT.ANE_ITS ---
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 When Was Last Pacemaker Check QUESTION #4 FULL TEXT: You/Your Family Experience fever (hyperthermia) with Anesthesia Last Oral Intake Last Oral intake: Last Oral Intake NPO since Meds taken in AM with sips of water? 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 jack operator Female No 05/29/25 10:13 HX of Motion Sickness No 05/29/25 10:13 HX of N/V After Surgery No 05/29/25 10:13 Non-Smoker Yes 05/29/25 10:13 Duration of Surgery greater Yes 05/29/25 10:13 than 60 minutes Number of Risk Factors 2 05/29/25 10:13 PONV Score Moderate Risk 05/29/25 10:13 Height & Weight Height & Weight: Anesthesia: Height & Weight Height 5 ft 5.5 in 03/01/25 15:31 Respiratory Assessment Respiratory Assessment - hydraulic jack operator: Respiratory Tract Infection Hx - hydraulic jack operator Hx Respiratory Tract Infection No 05/29/25 10:13 STOP Sleep Apnea STOP Sleep Apnea - hydraulic jack operator: STOP Sleep Apnea - hydraulic jack operator Hx Hypertension Yes: CONTROLLED WITH MEDS 05/29/25 10:13 Hx Sleep Apnea Yes: HAS IMPLANTABLE DEVICE, 05/29/25 10:13 DOES NOT WORK CPAP No 05/29/25 10:13 BIPAP No 05/29/25 10:13 Do you snore loudly (louder than talking or can be heard Do you often feel tired/ fatigued/ sleepy during daytime? Has anyone observed you stop breathing during sleep? STOP Results Positive 05/29/25 10:13 QUESTION #5 FULL TEXT : Do you snore loudly (louder than talking or can be heard through closed doors)? 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 Specify any problems Hx of Preganancy in last 3 N/A 05/29/25 10:13 Months Nurse Filling Out Transfusion [id number] 05/29/25 10:13 & Questions: Date: 05/29/25 05/29/25 10:13 Time: 10:20 05/29/25 10:13 Patient unable to answer at this time (ie. 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 jack operator: /Reproductive Hx- hydraulic jack operator Hx Now Gestational Age (in weeks): EDC: Hx Hx Para Hx Section SAB PFSH Medical History (Updated 05/29/25 @ 10:28 by [place] Tenorio) Wears glasses Fracture, skull History of echocardiogram History of Holter monitoring Cardiology follow-up encounter CVA (cerebral vascular accident) H/O multiple concussions Coronary artery disease History of anxiety History of restless legs syndrome History of Raynaud's syndrome Wenckebach second degree AV block Syncope Nonalcoholic hepatosteatosis Left carotid artery stenosis Hyperlipidemia, mixed Essential (primary) hypertension Kidney stones Arthritis Back pain Injury of head and neck Blackout History of IBS Sleep apnea Asthma Seasonal allergies Tricuspid valve regurgitation Major depressive disorder Insomnia Prediabetes TARIK (obstructive sleep apnea) Encounter for screening for malignant neoplasm of colon Home Medications ?Medication ?Instructions ?Recorded ?Last Taken ?Type cholecalciferol (vitamin D3) 50 50 mcg PO DAILY supple ment 05/06/23 Unknown History mcg (2,000 unit) capsule ascorbic acid (vitamin C) 500 mg 500 mg PO DAILY SUPPL EMENT #1 TAB 05/09/24 Unknown Rx tablet aspirin 81 mg tablet,delayed 81 mg PO BREAKFAST SUPPLE MENT #1 05/09/24 Unknown Rx release TAB evolocumab 140 mg/mL subcutaneous 140 mg subcut Q2W CH OLESTEROL 12/01/24 Unknown History pen injector (Ayaka Retana) cetirizine 10 mg capsule (Zyrtec) 10 mg PO QDAY PRN al lergic symptoms 02/15/25 Unknown History cayenne pepper 1 cap PO DAILY SUPPLEMENT Unknown History garlic 500 mg capsule 500 mg PO QDAY SUPPLEMENT Unknown History lactobacillus combination no.9 4 4,000 mmu cells PO QD AY SUPPLEMENT 04/26/25 Unknown History billion cell capsule (Adult 50 Plus Probiotic) carvedilol 25 mg tablet 25 mg PO BID SUPPLEMENT #180 tabs 05/25/25 Unknown Rx losartan 100 mg tablet 100 mg PO DAILY HTN 05/29/25 Unknown History magnesium glycinate 100 mg (as 100 mg PO DAILY SUPPLEM ENT 05/29/25 Unknown History glycinate) tablet (Mag Glycinate) nitric oxide gas 4 dose PO DAILY SUPPLEMENT 1 Unknown History nitroglycerin 0.4 mg sublingual 0.4 mg sublingual Q5M PRN CHEST 05/29/25 Unknown History tablet PAIN tamsulosin 0.4 mg capsule 0.4 mg PO QHS ENLARGED PROST ATE 05/29/25 Unknown History Allergy/AdvReac Type Severity Reaction Status Date / Time pollen extracts Allergy RUNNY NOSE Verified 05/29/25 10:03 Family History Daughter Colon cancer Grandmother Colon cancer Unknown Rectal cancer Father Heart disease of a heart attack in his mid 50s Sister Diabetes Mother , Intracerebral bleed at 19 years of age No problems noted. Other Hypertension Surgical History (Updated 05/29/25 @ 10:28 by [place] Tenorio) H/O repair of biceps tendon History of coronary artery stent placement History of cardiac catheterization History of PTCA 1 History of bilateral carpal tunnel release Hx of surgical procedure History of esophagogastroduodenoscopy (EGD) Hx of shoulder surgery Hx of knee surgery History of Little fundoplication Hx of inguinal hernia repair Hx of colonoscopy Social History household members: family and other details: Lives with his spouse and 2 of his children live with him housing: house number of children: 5 current occupational status: employed current occupation: Works at [employer] in [place] Smoking Status: Never smoker alcohol intake: current Alcohol type: beer details: 1-2 cans a week substance use type: does not use and other details: Used to be a pot smoker Audit: Pertinent Findings Pertinent Findings EKG Perinent findings: EKG 05/31/2025. Normal sinus rhythm. Echo (EF%) pertinent findings: Echo 04/28/2023 left ventricle normal size. Normal wall thickness. Normal left ventricular systolic function. EF 58%. Normal wall motion. Right ventricle size is normal. Normal systolic function. No significant valvular abnormalities Consult pertinent findings: Cardiology note 04/26/2025. 69-year-old man who had previously seen us with Sherry. This CT and was asked to follow-up but unfortunately did not. He apparently underwent a coronary calcium score which we think was abnormal and then underwent a left heart catheterization in April 2024, it demonstrated high-grade lesion in the left anterior descending artery of 80% in the proximal LAD he underwent angioplasty and stenting after an FFR was noted to be abnormal. This was successful but unfortunately subsequently he did suffer a cerebrovascular accident. He says that he has not quite been the same since. He has blood pressure have been going up and down. He will continue current medical therapy that includes aspirin carvedilol and Repatha. After 1 year of stenting, he discontinued Plavix. Recommendation Anesthesia Recommendation Anesthesia recommendation: OPTIMIZED for anesthesia
[2025-06-12] VITALS (17 sets, daily range): BP systolic 88–127; BP diastolic 49–83; PULSE 68–91; RESP 12–18; TEMP 36.1–36.9; O2SAT 88–100; BMI 33.9
--- OUTSIDE RECORDS SUMMARY | 2025-06-12 05:27 | XMS RPT_ITS | CCD ---
Author Organization [facility] Care Team Providers Care Architectural Project Manager Name Role Phone GHASSAN, DANIEL Unavailable Unavailable NAUMOFF, ANDRER Unavailable Unavailable NAUMOFF, ANDRER Unavailable Unavailable GHASSAN, DANIEL Unavailable Unavailable [facility] Unavailable Unavailable NAUMOFF, ANDRER Unavailable Unavailable GHASSAN, DANIEL Unavailable Unavailable GHASSAN, DANIEL Unavailable Unavailable NAUMOFF, ANDRER Unavailable Unavailable GHASSAN, DANIEL Unavailable Unavailable NAUMOFF, ANDRER Unavailable Unavailable GHASSAN, DANIEL E Unavailable Unavailable GHASSAN, DANIEL E Unavailable Unavailable GHASSAN, DANIEL E Unavailable Unavailable NAUMOFF LAURI JOHNSON Primary Care Physician REGIS PHILLIPS DO Primary Care Physician Regis Phillips DO Primary Care Provider [phone] Dr. Lauri Beasley Primary Care Provider Lisa Atkinson Attending Provider Unavailable Dr. Daniel Basurto Attending Provider Dr. Daniel Basurto Other Provider Dr. Regis Phillips Primary Care Provider Dr. Regis Patel Referring Provider REGIS PHILLIPS DO Attending Unavailable REGIS PHILLIPS DO Primary Care Unavailable REGIS PHILLIPS DO Attending Unavailable REGIS PHILLIPS DO Primary Care Unavailable REGIS PHILLIPS DO Attending Unavailable REGIS PHILLIPS DO Primary Care Unavailable REGIS PHILLIPS DO Primary Care Unavailable REGIS PHILLIPS DO Attending Unavailable REGIS PHILLIPS DO Primary Care Unavailable WILNER VICENTE Attending Unavailab le REGIS PHILLIPS DO Primary Care Unavailable REGIS PHILLIPS DO Attending Unavailable REGIS PHILLIPS DO Attending Unavailable PHILLIPS DO, REGIS E Primary Care Unavailable PHILLIPS DO, REGIS E Primary Care Unavailable DEVAN CASPER MD Attending Unavailable PHILLIPS DO, REGIS E Primary Care Unavailable PHILLIPS DO, REGIS E Attending Unavailable BETTY SÁNCHEZ Attending Unavailable PHILLIPS DO, REGIS E Primary Care Unavailable PHILLIPS DO, REGIS E Primary Care Unavailable BRITNI JOHNSON, DAVID Romero Attending Unavailable PHILLIPS DO, REGIS E Primary Care Unavailable SHARLENE JOHNSON, MARIA ESTHER Ho Consulting Unavailable BRITNI JOHNSON, DAVID Romero Admitting Unavailable BRITNI JOHNSON, DAVID Romero Attending Unavailable ABBIE ARGUETA MD, V Consulting Unavailable BRITNI JOHNSON, DAVID Romero Consulting Unavailable PHILLIPS DO, REGIS E Consulting Unavailable SARTHAK JOHNSON, VILMA Mancuso Consulting Unavailabl e ROSA M BARFIELD-CHIP APPLYING MACHINE TENDER, WILNER Consulting Unavailab melani DONNELLY MD, MAXX Consulting Unavailable DEVAN CASPER MD Consulting Unavailable ROMEO MAS MD Consulting Unavailable LANDON JOHNSON, DR CARRERO Consulting Unavailab melani VELAZQUEZ MD, EUSEBIA Consulting Unavailable CARLOS JOHNSON, BETTIE Consulting U navailable DEVAN CASPER MD Attending Unavailable PHILLIPS DO, REGIS E Primary Care Unavailable FISH SHOW HORSE DRIVER-CHIP APPLYING MACHINE TENDER, WILNER Attending Unavailab le PHILLIPS DO, REGIS E Primary Care Unavailable BETTY SÁNCHEZ Attending Unavailable PHILLIPS DO, REGSI E Primary Care Unavailable YESSENIA AYALA Attending Unavailable PHILLIPS, REGIS Primary Care Unavailable YESSENIA AYALA Attending Unavailable PHILLIPS, REGIS Primary Care Unavailable YESSENIA AYALA Attending Unavailable PHILLIPS, REGIS Primary Care Unavailable YESSENIA AYALA Attending Unavailable PHILLIPS, REGIS Primary Care Unavailable YESSENIA AYALA Attending Unavailable PHILLIPS, REGIS Primary Care Unavailable YESSENIA AYALA Attending Unavailable PHILLIPS, REGIS Primary Care Unavailable YESSENIA AYALA Attending Unavailable PHILLIPS, REGIS Primary Care Unavailable Dr. Regis Phillips DO Primary Care Provider Dr. Regis Phillips DO Referring Provider Dr. Tano Goldsmith MD Attending Provider [phone] Eri Zarate Attending Provider [phone] Eri Zarate Referring Provider [phone] Merly Bailey Attending Provider Merly Bailey Referring Provider [phone] ROSA M SHOW HORSE DRIVER-CHIP APPLYING MACHINE TENDER, WILNER Attending Unavailab le PHILLIPS DO, REGIS E Primary Care Unavailable PHILLIPS DO, REGIS E Primary Care Unavailable LEDESMA SHOW HORSE DRIVER-CHIP APPLYING MACHINE TENDER, NILE Attending Unavail able PHILLIPS DO, REGIS E Primary Care Unavailable PHILLIPS DO, REGIS E Attending Unavailable SÁNCHEZ SHOW HORSE DRIVER-CHIP APPLYING MACHINE TENDER, BETTY Attending Unavail able PHILLIPS DO, REGIS E Primary Care Unavailable SÁNCHEZ SHOW HORSE DRIVER-CHIP APPLYING MACHINE TENDER, BETTY Attending Unavail able PHILLIPS DO, REGIS E Primary Care Unavailable PHILLIPS DO, REGIS E Attending Unavailable PHILLIPS DO, REGIS E Primary Care Unavailable PHILLIPS DO, REGIS E Primary Care Unavailable SAVANNAH JOHNSON, DR IGNACIO Attending Unavailab le PHILLIPS DO, REGIS E Primary Care Unavailable BEVERLY JOHNSON, DR STEVEN Haile Attending Unavailabl e ROMEL DOANGEL Attending Unavailable PHILLIPS DO, REGIS E Primary Care Unavailable RAMOS JOHNSON, LAURI Victoria Attending Unavailable PHILLIPS DO, REGIS E Primary Care Unavailable PHILLIPS DO, REGIS E Primary Care Unavailable FISH SHOW HORSE DRIVER-CHIP APPLYING MACHINE TENDER, WILNER Attending Unavailab le FISH SHOW HORSE DRIVER-CHIP APPLYING MACHINE TENDER, WILNER Attending Unavailab le ALAN DO, REGIS E Primary Care Unavailable Dr. Regis Phillips DO Primary Care Provider [phone] Dr. Regis Phillips DO Referring Provider Dr. Tano Goldsmith MD Attending Provider Roof SUPERVISOR [employer]SPRINGS-C, Victorino Borrego Attending Provider Dr. Regis Phillips DO Primary Care Physician [phone] Merly Bailey Attending Physician Dr. Tano Goldsmith MD Attending Physician Roof SUPERVISOR [employer], Victorino H Attending Physician Roof SUPERVISOR [employer], Victorino H Referring Provider Regis Phillips Primary Care Unavailable Roof SUPERVISOR MATTRESS AND BOXSPRINGSVictorino H Attending Unavailable Roof SUPERVISOR [employer]INGS, Victorino H Referring Unavailable Eri Zarate Attending Unavail able Eri Zarate Referring Unavail able Regis Phillips Primary Care Unavailable Alan Regis Primary Care Unavailable Vidales, Saad Admitting Unavailable VidalesSaad Attending Unavailable Vidales Saad Referring Unavailable Agus, [place] Attending Unavailable Phillips, Regis Primary Care Unavailable Phillips, Regis Referring Unavailable Phillips, Regis Primary Care Unavailable Kristal, Merly Attending Unavailable Phillips, Regis Referring Unavailable Phillips, Regis Primary Care Unavailable Roof Victorino SPENCER Attending Unavailable Phillips, Regis Referring Unavailable Phillips, Regis Primary Care Unavailable Saad Vidales Attending Unavailable Agus, [place] Attending Unavailable Phillips, Regis Referring Unavailable Phillips, Regis Primary Care Unavailable Phillips, Regis Referring Unavailable Phillips, Regis Primary Care Unavailable Kristal, Merly Attending Unavailable Kristal, Merly Referring Unavailable Phillips, Regis Primary Care Unavailable Kristal, Merly Attending Unavailable Allergies Allergy Classification Reported Allergen(s) Allergy Type Date of Onset Reaction(s) Facility (5 sources) LORazepam; Translations: [lorazepam] Drug Allergy Nocturnal dyspnea (finding), Tachycardia (finding) [facility] (20 sources) Pollen Propensity to adverse reactions 3 Other [facility] (7 sources) Environmental Allergies: Uncoded; Translations: [Environmental Allergies: Uncoded] Allergy to substance 5 Runny nose [facility] (1 source) Pollen Drug allergy (disorder) 5 [facility] Repository Medications Current Medications Medication Drug Class(es) Dates Sig (Normalized) Sig (Original) acetaminophen 325 mg / HYDROcodone bitartrate 5 mg oral tablet (1 source) Opioid Agonist Start: 04-26-2024 End: 05-01-2024 Victor 325- 5 mg oral tablet 1-2 tab(s), Oral, q6hr, PRN as needed for pain, Take 1 tablet for pain level 4-6 or take 2 tablets for pain level 7-10. Do not exceed 6 tablets/day., X 5 day(s), # 30 tab(s), 0 Refill(s), Severe headache Intraparenchymal hemorrhage of brain, 88.1 Start Date: 04/26/24 Stop Date: 05/01/24 Status: Ordered Alpha Lipoic 100 mg oral tablet (11 sources) Start: 03-17-2024 take 1 mg by mouth twice daily Alpha Lipoic 100 mg oral tablet mg = tab(s), Oral, BID, 0 Refill(s) Start Date: 03/17/24 Status: Ordered Repeat number: 1 Start: 03-17-2024 take 1 mg by mouth twice daily Alpha Lipoic 100 mg oral tablet mg = tab(s), Oral, BID, 0 Refill(s) Start Date: 03/17/24 Status: Ordered amitriptyline hydrochloride 10 mg oral tablet (1 source) Tricyclic Antidepressant Start: 04-14-2022 amitriptyline 10 mg oral tablet Dose : 10 mg = 1 tab(s), Oral, qHS, if ineffective after 5 days increase to 2 tabs at night, # 90 tab(s), 0 Refill(s), Pharmacy: [facility], Insomnia, 168, cm, 04/14/22 12:40:00 EDT, Height Start Date: 04/14/22 Status: Ordered ascorbic acid 500 mg oral tablet (20 sources) Vitamin C Start: 05-09-2024 take 1 tablet by mouth once daily End: 01-25-2025 take 1 tablet by mouth once daily before breakfast Ascorbic Acid (vitamin C) 1000 MG tablet Take 1,000 mg by mouth every morning (before breakfast). 01/25/2025 Discontinued aspirin 81 mg delayed release oral tablet (20 sources) Platelet Aggregation Inhibitor, Nonsteroidal Anti-inflammatory Drug Start: 04-19-2024 take 1 tablet by mouth at breakfast B Complex-Biotin- FA (B COMPLEX 100 TR PO) (20 sources) B Complex-Bioti n-FA (B COMPLEX 100 TR PO) Take by mouth every morning (before breakfast). Active B Complex-Biotin -FA (B COMPLEX 100 TR PO) Take by mouth every morning (before breakfast). 0 Active beet root (3 sources) Start: 08-25-2024 beet root beet root, 0 Refill(s), 92.3 Start Date: 08/25/24 Status: Ordered Repeat number: 1 carvedilol 25 mg oral tablet (11 sources) alpha-Adrenergic Zina, beta-Adrenergic Zina Start: 11-07-2024 take 1 tablet by mouth twice daily Cay[place] (3 sources) Start: 08-25-2024 Cayane Cayane, 0 Refill(s), 92.3 Start Date: 08/25/24 Status: Ordered Repeat number: 1 cayenne pepper (2 sources) Start: 04-26-2025 Start: 04-26-2025 cayenne pepper Active 1 NMA PO DAILY April 26, 2025 12:00am cetirizine hydrochloride 10 mg oral capsule (20 sources) Histamine-1 Receptor Antagonist Start: 02-15-2025 take 1 capsule by mouth once daily as needed Start: 09-21-2019 End: 04-27-2024 take 1 tablet by mouth once daily as needed Cetirizine (Zyrtec) 10 mg tablet Discontinued 10 mg PO DAILY as needed May 06, 2023 12:00am April 27, 2024 11:11am cholecalciferol 0.05 mg oral capsule (20 sources) Vitamin D Start: 05-06-2023 take 1 capsule by mo uth once daily End: 01-25-2025 take 1 capsule by mouth once daily cholecalciferol (Vitamin D-3) 125 MCG (5000 UT) capsule Take 5,000 Units by mouth daily. 01/25/2025 Discontinued cyclobenzaprine hydrochloride 10 mg oral tablet (2 sources) Muscle Relaxant Start: 02-02-2025 End: 02-05-2025 take 1 tablet by mouth three times daily Flexeril use cyclobenzaprine Dose : 10 mg =, Oral, TID, X 3 day(s), # 8 tab(s), 0 Refill(s), 02/05/25 7:09:00 PM EDT Start Date: 02/02/25 Stop Date: 02/05/25 Status: Ordered Quantity: 8.0 Unit: tab(s) Repeat number: 1 daridorexant 25 MG Oral Tablet [Quviviq] (1 source) Start: 09-15-2023 Quviviq 25 mg oral tablet Dose : 25 mg = 1 tab(s), Oral, qDay, # 30 tab(s), 0 Refill(s), Pharmacy: [facility], Insomnia, 167, cm, 09/15/23 15:06:00 EST, Height, kg, 09/15/23 15:06:00 EST, Dosing Weight Start Date: 09/15/23 Status: Ordered Diclofenac (1 source) Nonsteroidal Anti-inflammatory Drug Start: 11-05-2021 End: 12-05-2021 Voltaren 1% topical gel 2 = gram(s), Topical, QID, PRN as needed for pain, not to exceed 8 grams/day/single joint of upper extremities. Do NOT take any other NSAIDs while on this medication., # 100 gram(s), 0 Refill(s), Pharmacy: [id number] [place], 168, cm, ... Start Date: 11/05/21 Stop Date: 12/05/21 Status: Ordered docusate sodium 100 mg oral capsule (6 sources) Start: 04-26-2024 Colace 100 mg oral capsule Dose : 100 mg = 1 cap(s), Oral, BID, PRN Constipation, 0 Refill(s) Start Date: 04/26/24 Status: Ordered Repeat number: 1 DULoxetine 30 mg delayed release oral capsule (1 source) Serotonin and Norepinephrine Reuptake Inhibitor Start: 11-04-2021 take 1 capsule by mouth once daily, then take 2 capsules by mouth once daily DULoxetine 30 mg oral delayed release capsule See Instructions, 1 cap(s) Oral qDay for two weeks, then increase to 2 caps oral qday thereafer, 60 day(s), # 120 cap(s), 0 Refill(s), Pharmacy: [facility], 168, cm, 11/04/21 16:57:00 EDT, Height, kg, 11/04/21 16:57:00 EDT, Dosing W... Start Date: 11/04/21 Status: Ordered 1 ml evolocumab 140 mg/ml auto-injector (19 sources) PCSK9 Inhibitor Start: 11-14-2024 Repatha SureClic k 140 MG/ML injection Inject 140 mg under the skin every 14 (fourteen) days. Active Fish Oils (8 sources) Start: 11-27-2024 Fish Oil 1000 mg oral capsule mg = cap(s), Oral, 0 Refill(s) Start Date: 11/27/24 Status: Ordered Repeat number: 1 Start: 03-27-2024 Fish Oil 1000 mg oral capsule mg = cap(s), Oral, 0 Refill(s) Start Date: 03/27/24 Status: Ordered Garlic (13 sources) Non-Standardized Food Allergenic Extract Start: 04-26-2025 take 1 capsule by mouth once daily Start: 04-26-2025 take 1 capsule by mo ut once daily Garlic 500 mg capsule Active 500 mg PO daily April 26, 2025 12:00am Start: 08-25-2024 garlic oral ca psule 0 Refill(s) Start Date: 08/25/24 Status: Ordered Repeat number: 1 Start: 05-28-2023 garlic oral ca psule 0 Refill(s) Start Date: 05/28/23 Status: Ordered 12 hr guaiFENesin 600 mg extended release oral tablet (8 sources) Start: 05-28-2023 take 1 mg by mouth every twelve hours as needed Mucinex 600 mg oral tablet, extended release mg = tab(s), Oral, q12h, as needed, 0 Refill(s) Start Date: 05/28/23 Status: Ordered End: 04-14-2024 guaiFENesin (Mucinex) 600 MG 12 hr tablet Take 1,200 mg by mouth every morning (before breakfast). Do not crush, chew, or split. 04/14/2024 Discontinued hydrOXYzine hydrochloride 50 mg oral tablet (1 source) Antihistamine Start: 11-04-2021 End: 12-04-2021 hydrOXYzine hydrochloride 50 mg oral tablet 1-2 tabs, Oral, QID, PRN as needed for anxiety, Do not drive, operate heavy machinery, or drink alcohol while on this medication. Okay to try half a tab when first starting medication., # 60 tab(s), 0 Refill(s), [facility]... Start Date: 11/04/21 Stop Date: 12/04/21 Status: Ordered Lactobacillus Combination No.9 (Adult 50 Plus Probiotic) 4 billion cell capsule (2 sources) Start: 04-26-2025 take 4 capsules by mouth once daily Start: 04-26-2025 take 4 capsules by m outh once daily Lactobacillus Combination No.9 (Adult 50 Plus Probiotic) 4 billion cell capsule Active 4000 NMA PO daily April 26, 2025 12:00am administer with a meal lidocaine 0.05 mg/mg medicated patch (1 source) Antiarrhythmic, Amide Local Anesthetic Start: 11-05-2021 End: 12-05-2021 Lidoderm 5% topical patch Apply 1 patch(es), Transdermal, Daily, PRN Pain, remove patch after 12 hours. No more than 1 patch should be used in 24 hr period., # 30 patch(es), 0 Refill(s), Pharmacy: [id number], 168, cm, 11/04/21 16:57:00 EDT, Height, 102.9, kg, 10/15... Start Date: 11/05/21 Stop Date: 12/05/21 Status: Ordered MAGNESIUM GLUCONATE (3 sources) Start: 10-20-2024 magnesium gluc kelly Oral, BID, 0 Refill(s) Start Date: 10/20/24 Status: Ordered Repeat number: 1 methylPREDNISolone 4 mg oral tablet (2 sources) Corticosteroid Start: 02-02-2025 End: 02-08-2025 Medrol Dosepak 4 mg oral tablet Per Dosepak Instructions, Oral, Daily, as directed on package labeling, X 6 day(s), # 1 EA, 0 Refill(s), 02/08/25 7:09:00 PM EDT Start Date: 02/02/25 Stop Date: 02/08/25 Status: Ordered Quantity: 1.0 Unit: EA Repeat number: 1 [facility] [place] (6 sources) Start: 10-20-2024 [facility] [place] 0 Refill(s), 95.7 Start Date: 10/20/24 Status: Ordered Repeat number: 1 Start: 10-20-2024 [facility] [place] [facility] 0 Refill(s), 95.7 Start Date: 10/20/24 Status: Ordered Repeat number: 1 montelukast 10 mg oral tablet (1 source) Leukotriene Receptor Antagonist Start: 04-17-2020 Singulair 10 mg oral tablet Dose : 10 mg = 1 tab(s), Oral, qDay, # 30 tab(s), 1 Refill(s), Pharmacy: [facility], 166.5, cm, 04/17/20 14:58:00 EDT, Height, kg, 04/17/20 14:58:00 EDT, Dosing Weight Start Date: 04/17/20 Status: Ordered nutritional supplement (13 sources) Start: 03-17-2024 nutritional supplement 0 Refill(s) Start Date: 03/17/24 Status: Ordered Start: 05-28-2023 nutritional roldan pplement Cayenne, 0 Refill(s) Start Date: 05/28/23 Status: Ordered [place]-3 Fatty Acids (FISH OIL PO) (3 sources) [place]-3 Fatty Ac ids (FISH OIL PO) Take by mouth daily. Active omeprazole 20 mg delayed release oral capsule (5 sources) Proton Pump Inhibitor Start: 03-27-2024 omeprazole 20 mg oral delayed release capsule Dose : 20 mg = 1 cap(s), Oral, qDay, Take daily after dinner, monitor chest/congestion symptoms laying down, # 30 cap(s), 1 Refill(s), Pharmacy: [facility], Essential hypertension Mixed hyperlipidemia, 165.5, cm, 03/27/24 15:39:00 EDT, Height, kg, 03/27/24 15:31:00 EDT, Dosing Weight Start Date: 03/27/24 Status: Ordered prasugrel 10 mg oral tablet (2 sources) P2Y12 Platelet Inhibitor Start: 04-19-2024 Effient 10 mg oral tablet Dose : 10 mg = 1 tab(s), Oral, Daily, # 30 tab(s), 11 Refill(s), Pharmacy: [facility], 166.4, cm, 04/19/24 6:05:00 EDT, Height, kg, 04/19/24 6:05:00 EDT, Dosing Weight Start Date: 04/19/24 Status: Ordered Probiotic (4 sources) Start: 10-20-2024 Probiotic 0 Refill(s) Start Date: 10/20/24 Status: Ordered Repeat number: 1 Start: 08-01-2019 Probiotic 0 Re fill(s) Start Date: 08/01/19 Status: Ordered psyllium 400 mg oral capsule (20 sources) Start: 09-15-2022 psyllium ([place] mucil) 0.36 g capsule daily. 09/15/2022 Active Start: 09-15-2022 Metamucil Oral , takes with magnesium, 0 Refill(s) Start Date: 09/15/22 Status: Ordered Start: 09-15-2022 Metamucil Oral , 0 Refill(s) Start Date: 09/15/22 Status: Ordered Quercitin (8 sources) Start: 05-28-2023 Quercitin 0 Refill(s) Start Date: 05/28/23 Status: Ordered Quviviq 25 mg oral tablet (1 source) Start: 09-26-2022 Quviviq 25 mg oral tablet Dose : 25 mg = 1 tab(s), Oral, qDay, # 30 tab(s), 0 Refill(s), Pharmacy: [facility], Primary insomnia, 168, cm, 09/15/22 9:44:00 EST, Height Start Date: 09/26/22 Status: Ordered traZODone hydrochloride 100 mg oral tablet (3 sources) Serotonin Reuptake Inhibitor Start: 05-28-2023 take 1 tablet by mouth once daily traZODone (Desyrel) 100 MG tablet Take 100 mg by mouth Nightly. 0 05/28/2023 Active Start: 09-15-2022 take 2 tablets by mo uth once daily at bedtime traZODone 50 mg oral tablet 2 tab, Oral, qHS, # 90 tab(s), 0 Refill(s), Pharmacy: [facility], Insomnia, 168, cm, 09/15/22 9:44:00 EST, Height Start Date: 09/15/22 Status: Ordered turmeric extract 500 mg oral capsule (1 source) Start: 05-28-2023 turmeric 500 m g oral capsule 0 Refill(s) Start Date: 05/28/23 Status: Ordered Vitamin B12 50 mcg oral tabl et (12 sources) Start: 04-14-2022 Vitamin B12 50 mcg oral tablet Dose : 50 mcg = 1 tab(s), Oral, qDay, # 90 tab(s), 0 Refill(s) Start Date: 04/14/22 Status: Ordered Vitamin C 25 mg oral tablet, chewable (20 sources) Start: 04-14-2022 Vitamin C 25 m g oral tablet, chewable Dose : 25 mg = 1 tab(s), Chewed, qDay, # 90 tab(s), 0 Refill(s) Start Date: 04/14/22 Status: Ordered Quantity: 90.0 Unit: tab(s) Repeat number: 1 Start: 04-14-2022 Vitamin C 25 m g oral tablet, chewable Dose : 25 mg = 1 tab(s), Chewed, qDay, # 90 tab(s), 0 Refill(s) Start Date: 04/14/22 Status: Ordered Vitamin D3 (20 sources) Start: 04-14-2022 Vitamin D3 Dos e : 50 mcg = 1 tab(s), Oral, Daily, # 60 tab(s), 0 Refill(s) Start Date: 04/14/22 Status: Ordered Quantity: 60.0 Unit: tab(s) Repeat number: 1 Start: 04-14-2022 Vitamin D3 Dos e : 50 mcg = 1 tab(s), Oral, Daily, # 60 tab(s), 0 Refill(s) Start Date: 04/14/22 Status: Ordered zolpidem tartrate 5 mg oral tablet (5 sources) gamma-Aminobutyric Acid-ergic Agonist Start: 01-25-2025 End: 01-25-2026 take 1 tablet by mouth once daily as needed for sleep zolpidem 5 mg oral tablet TAKE 1 TABLET BY MOUTH NIGHTLY NEEDED FOR SLEEP Start Date: 02/02/25 Status: Ordered Repeat number: 1 Completed/Discontinued Medications Medication Drug Class(es) Dates Sig (Normalized) Sig (Original) acetaminophen 325 mg oral tablet (20 sources) Start: 04-27-2024 End: 12-01-2024 Acetaminophen (Tactinal) 325 mg tablet Discontinued 1000 mg PO EVERY 8 HOURS NEEDED April 27, 2024 12:00am December 01, 2024 11:29am pain Start: 04-26-2024 acetaminophen 325 mg oral tablet Dose : 650 mg = 2 tab(s), Oral, QID, PRN Pain, scale 1-3, # 50 tab(s), 0 Refill(s), other reason (Rx) Start Date: 04/26/24 Status: Ordered Quantity: 50.0 Unit: tab(s) Repeat number: 1 Start: 04-26-2024 Tylenol Dose : 1,000 mg = 2 tab(s), Oral, q6hr, PRN Pain, scale 1-3, 0 Refill(s) Start Date: 04/26/24 Status: Ordered Repeat number: 1 Start: 10-07-2023 End: 10-07-2023 acetaminophen (Tylenol) tabl et 1,000 mg ALPHA LIPOIC ACID PO (20 sources) End: 10-04-2024 ALPHA LIPOIC ACID PO Take by mouth every morning (before breakfast). 10/04/2024 Discontinued ALPHA LIPOIC ACI D PO Take by mouth every morning (before breakfast). Active ALPHA LIPOIC ACI D PO Take by mouth every morning (before breakfast). 0 Active ALPHA LIPOIC ACI D PO Take by mouth. 0 Active amLODIPine 5 mg oral tablet (6 sources) Dihydropyridine Calcium Channel Zina Start: 05-17-2023 End: 04-27-2024 take 1 tablet by mouth once daily Amlodipine 5 mg tablet Discontinued 5 mg PO DAILY 90 3 May 17, 2023 12:00am April 27, 2024 11:06am atorvastatin 40 mg oral tablet (20 sources) HMG-CoA Reductase Inhibitor Start: 03-17-2024 End: 12-01-2024 take 1 tablet by mouth once daily Atorvastatin 40 mg tablet Discontinued 40 mg PO DAILY 30 0 May 09, 2024 9:38am December 01, 2024 11:29am cholesterol calcium ascorbate 500 mg oral tablet (6 sources) Start: 05-06-2023 End: 05-09-2024 Ascorbate Calcium (Vitamin C) 500 mg tablet Discontinued 25 mg PO DAILY May 06, 2023 12:00am May 09, 2024 9:32am supplement calcium chloride 0.0014 meq/ml / potassium chloride 0.004 meq/ml / sodium chloride 0.103 meq/ml / sodium lactate 0.028 meq/ml injectable solution (2 sources) Start: 10-07-2023 End: 10-07-2023 lactated Ringer's (LR) infusion cloNIDine hydrochloride 0.1 mg oral tablet (20 sources) Central alpha-2 Adrenergic Agonist Start: 12-01-2024 End: 12-01-2024 take 1 tablet by mouth three times daily as needed Clonidine Hcl 0.1 mg tablet Discontinued 0.1 mg PO THREE TIMES A DAY as needed for blood pressure December 01, 2024 12:00am December 01, 2024 11:57am Start: 05-06-2023 End: 05-10-2023 take 1 tablet by mouth three times daily Clonidine Hcl 0.1 mg tablet Discontinued 0.1 mg PO THREE TIMES A DAY May 06, 2023 12:00am May 10, 2023 2:48pm Start: 02-09-2023 End: 12-04-2024 take 1 tablet by mouth every twenty-four hours as needed cloNIDine (Catapres) 0.1 MG tablet Take 0.1 mg by mouth Daily as needed. 02/09/2023 12/04/2024 Discontinued clopidogrel 75 mg oral tablet (20 sources) P2Y12 Platelet Inhibitor Start: 04-26-2024 End: 04-26-2025 take 1 tablet by mouth once daily Clopidogrel (Plavix) 75 mg tablet Discontinued 75 mg PO DAILY 30 0 May 09, 2024 9:38am April 26, 2025 4:00pm blood thinner diazePAM 5 mg oral tablet (7 sources) Benzodiazepine Start: 04-26-2024 End: 05-09-2024 take 1 tablet by mouth twice daily as needed for muscle spasms Diazepam (Valium) 5 mg tablet Discontinued 5 mg PO TWICE A DAY as needed for muscle spasm April 27, 2024 12:00am May 09, 2024 9:33am 1 ml diphenhydrAMINE hydrochloride 50 mg/ml cartridge (2 sources) Histamine-1 Receptor Antagonist Start: 10-07-2023 End: 10-07-2023 diphenhydrAMINE (BENADryl) injection 12.5 mg escitalopram 5 mg oral tablet (16 sources) Serotonin Reuptake Inhibitor Start: 10-04-2024 End: 04-26-2025 take 1 tablet by mouth once daily Escitalopram Oxalate 5 mg tablet Discontinued 5 mg PO daily December 01, 2024 12:00am April 26, 2025 4:00pm fluticasone propionate 0.05 mg/actuat metered dose nasal spray (8 sources) Corticosteroid Start: 05-06-2023 End: 05-10-2023 take 50 ug nasal route twice daily Fluticasone Propionate (Flonase Allergy Relief) 50 mcg/actuation spray,suspension Discontinued 1 NMA INTRANASAL TWICE A DAY May 06, 2023 12:00am May 10, 2023 2:48pm administer into each nostril Start: 03-13-2023 take 1 dose nasal ro [place] twice daily Flonase 50 mcg/inh nasal spray Dose = 1 spray(s), Nostril, each, BID, # 16 gram(s), 0 Refill(s), Pharmacy: [facility], Chest congestion Post-nasal drip, 166, cm, 03/13/23 9:05:00 EDT, Height, kg, 03/13/23 9:05:00 EDT, Dosing Weight Start Date: 03/13/23 Status: Ordered gabapentin 400 mg oral capsule (20 sources) Anti-epileptic Agent Start: 10-07-2023 End: 04-14-2024 take 1-2 capsules by mouth every hour at bedtime gabapentin (Neurontin) 400 MG capsule Indications: Chronic insomnia , Restless legs syndrome Take 1-2 caps po one hour prior to bedtime 60 capsule 11 10/07/2023 04/14/2024 Discontinued Start: 05-06-2023 End: 05-10-2023 take 1 capsule by mouth at bedtime Gabapentin 400 mg capsule Discontinued 400 mg PO AT BEDTIME May 06, 2023 12:00am May 10, 2023 2:49pm Start: 03-18-2023 End: 04-17-2023 take 1-2 capsules by mouth every hour at bedtime gabapentin (Neurontin) 400 MG capsule Indications: Chronic insomnia , Restless legs syndrome Take 1-2 caps po one hour prior to bedtime 60 capsule 11 03/18/2023 Active gadobutrol (Gadavist) injection 10 mL (2 sources) Start: 04-07-2023 End: 04-07-2023 gadobutrol (Gadavist) injection 10 mL hydrALAZINE hydrochloride 50 mg oral tablet (20 sources) Arteriolar Vasodilator Start: 05-09-2024 End: 12-04-2024 take 1 tablet by mouth twice daily Hydralazine 50 mg Tablet Discontinued 50 mg PO TWICE A DAY 60 0 May 09, 2024 12:00am December 01, 2024 11:57am hydroCHLOROthiazide 25 mg oral tablet (14 sources) Thiazide Diuretic Start: 12-05-2024 End: 12-13-2024 take 1 tablet by mouth once daily in the morning Hydrochlorothiazide 25 mg tablet Discontinued 25 mg PO EVERY MORNING 30 December 05, 2024 12:00am December 13, 2024 3:05pm Start: 04-26-2024 End: 05-09-2024 take 1 tablet by mouth once daily Hydrochlorothiazide 25 mg tablet Discontinued 25 mg PO DAILY April 27, 2024 12:00am May 09, 2024 9:35am BP 1 ml HYDROmorphone hydrochloride 1 mg/ml cartridge (4 sources) Opioid Agonist Start: 10-07-2023 End: 10-07-2023 HYDROmorphone (Dilaudid) injection 0.5 mg Start: 10-07-2023 End: 10-07-2023 HYDROmorphone (Dilaudid) inj ection 0.25 mg ibuprofen 20 mg/ml oral suspension (2 sources) Nonsteroidal Anti-inflammatory Drug Start: 10-07-2023 End: 10-07-2023 ibuprofen suspension 600 mg irbesartan 75 mg oral tablet (20 sources) Angiotensin 2 Receptor Zina Start: 02-10-2023 End: 10-04-2024 take 1 tablet by mouth once daily Irbesartan 75 mg tablet Discontinued 75 mg PO DAILY May 06, 2023 12:00am May 10, 2023 2:48pm labetalol (Normodyne,Trand ate) injection 5 mg (2 sources) Start: 10-07-2023 End: 10-07-2023 labetalol (Normodyne,Tranda te) injection 5 mg 1 ml LORazepam 2 mg/ml injection (2 sources) Benzodiazepine Start: 10-07-2023 End: 10-07-2023 LORazepam (Ativan) injection 0.5 mg losartan potassium 100 mg oral tablet (20 sources) Angiotensin 2 Receptor Zina Start: 12-01-2024 End: 03-01-2025 take 1 tablet by mouth at bedtime Losartan 100 mg tablet Discontinued 100 mg PO AT BEDTIME 90 3 December 05, 2024 9:33am March 01, 2025 3:34pm Start: 11-14-2024 End: 12-01-2024 take 1 tablet by mouth twice daily in the morning, then take 2 tablets by mouth in the evening Losartan 25 mg tablet Discontinued 25 mg PO TWICE A DAY December 01, 2024 12:00am December 01, 2024 11:57am 1 tab AM and 2 tabs PM Start: 04-26-2024 End: 05-09-2024 take 1 tablet by mouth once daily Losartan (Cozaar) 50 mg tablet Discontinued 50 mg PO DAILY April 27, 2024 12:00am May 09, 2024 9:35am BP Magnesium Ascorbate powder (20 sources) End: 01-25-2025 Magnesium Ascorbate powder e very morning (before breakfast). 01/25/2025 Discontinued Magnesium Ascorb ate powder every morning (before breakfast). Active Magnesium Ascorb ate powder every morning (before breakfast). 0 Active mecobalamin (5 sources) Start: 05-06-2023 End: 05-10-2023 Mecobalamin (Vitamin B12) 500 mcg tablet,chewable Discontinued 50 ug PO DAILY May 06, 2023 12:00am May 10, 2023 2:48pm 24 hr metoprolol succinate 50 mg extended release oral tablet (20 sources) beta-Adrenergi c Zina Start: 05-09-2024 End: 12-01-2024 take 1 tablet by mouth twice daily Metoprolol Succinate 50 mg Tablet Extended Release 24 Hr Discontinued 50 mg PO TWICE A DAY 60 0 May 09, 2024 12:00am December 01, 2024 11:30am Start: 04-27-2024 End: 04-27-2024 metoprolol succinate 25 mg o ral TABLET extended release Start: 04/27/24 8:00:00 AM EDT, Dose = 25 mg, = 1 tab(s), Oral, give with food, 0, 04/25/24 16:34:00 EDT Start Date: 04/27/24 Stop Date: 04/27/24 Status: Completed Start: 04-27-2024 End: 05-09-2024 take 2 tablets by mouth twice daily Metoprolol Succinate 50 mg tablet extended release 24 hr Discontinued 25 mg PO TWICE A DAY April 27, 2024 12:00am May 09, 2024 9:35am BP Start: 04-26-2024 metoprolol suc cinate 25 mg oral TABLET extended release Dose : 25 mg = 1 tab(s), Oral, qDayM, 0 Refill(s) Start Date: 04/26/24 Status: Ordered Start: 04-26-2024 End: 04-26-2024 metoprolol succinate 25 mg o ral TABLET extended release Start: 04/26/24 8:00:00 AM EDT, Dose = 25 mg, = 1 tab(s), Oral, give with food, 0, 04/25/24 16:34:00 EDT Start Date: 04/26/24 Stop Date: 04/26/24 Status: Completed Start: 04-25-2024 End: 04-25-2024 metoprolol succinate 25 mg o ral TABLET extended release Start: 04/25/24 4:34:00 PM EDT, Dose = 25 mg, = 1 tab(s), Oral, give with food, 04/25/24 16:34:00 EDT Start Date: 04/25/24 Stop Date: 04/25/24 Status: Completed Start: 04-11-2024 metoprolol suc cinate 50 mg oral TABLET extended release Dose : 50 mg = 1 tab(s), Oral, BID, Do not crush or chew (controlled release), # 60 tab(s), 2 Refill(s), Pharmacy: [facility], 165.1, cm, 04/11/24 10:16:00 EDT, Height, kg, 04/11/24 10:16:00 EDT, Dosing Weight Start Date: 04/11/24 Status: Ordered Start: 03-17-2024 metoprolol suc cinate 50 mg oral TABLET extended release Dose : 50 mg = 1 tab(s), Oral, BID, Do not crush or chew (controlled release), # 180 tab(s), 0 Refill(s), Pharmacy: [facility], Tachycardia, 165.5, cm, 03/17/24 14:13:00 EDT, Height, kg, 03/17/24 14:01:00 EDT, Dosing Weight Start Date: 03/17/24 Status: Ordered Start: 02-04-2024 metoprolol suc cinate 50 mg oral TABLET extended release Dose : 50 mg = 1 tab(s), Oral, BID, Do not crush or chew (controlled release), # 180 tab(s), 0 Refill(s), Pharmacy: [facility], Tachycardia, 165.5, cm, 02/04/24 9:10:00 EDT, Height, kg, 02/04/24 9:10:00 EDT, Dosing Weight Start Date: 02/04/24 Status: Ordered Start: 09-15-2023 metoprolol suc cinate 50 mg oral TABLET extended release Dose : 50 mg = 1 tab(s), Oral, BID, Do not crush or chew (controlled release), # 180 tab(s), 0 Refill(s), Pharmacy: [facility], Tachycardia, 167, cm, 09/15/23 15:06:00 EST, Height, kg, 09/15/23 15:06:00 EST, Dosing Weight Start Date: 09/15/23 Status: Ordered Start: 05-10-2023 End: 05-17-2023 take 2 tablets by mouth once daily Metoprolol Succinate 100 mg tablet extended release 24 hr Discontinued 50 mg PO DAILY May 10, 2023 2:47pm May 17, 2023 9:12am Start: 05-06-2023 End: 05-10-2023 take 1 tablet by mouth once daily Metoprolol Succinate 100 mg tablet extended release 24 hr Discontinued 100 mg PO DAILY May 06, 2023 10:41am May 10, 2023 2:50pm Start: 03-12-2023 End: 05-06-2023 take 2 tablets by mouth once daily Metoprolol Succinate 100 mg tablet extended release 24 hr Discontinued 50 mg PO DAILY March 12, 2023 12:00am May 06, 2023 10:41am Start: 03-12-2023 take 50 mg by mouth once daily Metoprolol Succinate Active 50 MG PO DAILY March 12, 2023 12:00am Start: 02-10-2023 Metoprolol Suc cinate ER 100 mg oral TABLET extended release Dose : 100 mg = 1 tab(s), Oral, qDay, # 90 tab(s), 0 Refill(s), Pharmacy: [facility], 168, cm, 02/09/23 16:25:00 EDT, Height, kg, 02/09/23 16:25:00 EDT, Dosing Weight Start Date: 02/10/23 Status: Ordered Start: 01-29-2022 End: 12-04-2024 metoprolol succinate XL (Top rol-XL) 50 MG 24 hr tablet 50 mg in the morning and 50 mg in the evening. 01/29/2022 12/04/2024 Discontinued Start: 01-29-2022 metoprolol suc cinate XL (Toprol-XL) 50 MG 24 hr tablet 50 mg Nightly. 01/29/2022 Active Start: 01-29-2022 Metoprolol Suc cinate ER 50 mg oral TABLET extended release Dose : 50 mg = 1 tab(s), Oral, qDay, # 90 tab(s), 3 Refill(s), Pharmacy: [facility], 167.5, cm, 11/10/21 14:27:00 EDT, Height, kg, 11/10/21 14:27:00 EDT, Dosing Weight Start Date: 01/29/22 Status: Ordered Start: 11-11-2020 Metoprolol Suc cinate ER 50 mg oral TABLET extended release Dose : 50 mg = 1 tab(s), Oral, qDay, # 90 tab(s), 3 Refill(s), Pharmacy: [facility], 168, cm, 10/23/20 9:19:00 EST, Height, kg, 10/23/20 9:19:00 EST, Dosing Weight Start Date: 11/11/20 Status: Ordered mirtazapine 45 mg oral tablet (20 sources) Start: 06-20-2024 End: 12-07-2024 take 1 tablet by mouth at bedtime Mirtazapine 45 mg tablet Discontinued 45 mg PO AT BEDTIME December 01, 2024 12:00am December 07, 2024 3:36pm Start: 11-30-2023 End: 12-01-2024 take 1 tablet by mouth at bedtime Mirtazapine 30 mg tablet Discontinued 30 mg PO AT BEDTIME April 27, 2024 12:00am December 01, 2024 11:27am sleep nitroglycerin 0.4 mg sublingual tablet (20 sources) Nitrate Vasodilator Start: 04-27-2024 End: 12-01-2024 Nitroglycerin 0.4 mg tablet, sublingual Discontinued 0.4 mg SL Q5M as needed for chest pain April 27, 2024 12:00am December 01, 2024 11:30am do not exceed 3 doses per episode Start: 03-17-2024 nitroglycerin 0.4 mg sublingual tablet 0.4 mg Dose = 1 tab(s), Sublingual, q5min, PRN for chest pain, If chest pain not relieved in 5 minutes after first dose, seek immediate medical attention, # 25 tab(s), 0 Refill(s), Pharmacy: [facility], 165.5, cm, 03/17/24 14:13:00 EDT, Height, kg, 03/17/24 14:01:00 EDT, Dosing Weight Start Date: 03/17/24 Status: Ordered Quantity: 25.0 Unit: tab(s) Repeat number: 1 2 ml ondansetron 2 mg/ml injection (2 sources) Serotonin-3 Receptor Antagonist Start: 10-07-2023 End: 10-07-2023 ondansetron (Zofran) injection 4 mg pantoprazole 20 mg delayed release oral tablet (12 sources) Proton Pump Inhibitor Start: 04-26-2024 End: 12-01-2024 take 1 tablet by mouth once daily Pantoprazole (Protonix) 20 mg tablet,delayed release (DR/EC) Discontinued 20 mg PO DAILY April 27, 2024 12:00am December 01, 2024 11:31am GERD Probiotic Product (PROBIOTIC BLEND PO) (20 sources) End: 10-04-2024 Probiotic Product (PROBIOTIC BLEND PO) Take by mouth every morning (before breakfast). 10/04/2024 Discontinued Probiotic Produc t (PROBIOTIC BLEND PO) Take by mouth every morning (before breakfast). Active Probiotic Produc t (PROBIOTIC BLEND PO) Take by mouth every morning (before breakfast). 0 Active Probiotic Produc t (PROBIOTIC BLEND PO) Take by mouth. 0 Active Quercetin (7 sources) End: 04-14-2024 take 400 mg by mouth once daily before breakfast QUERCETIN PO Take 400 mg by mouth every morning (before breakfast). 04/14/2024 Discontinued take 400 mg by mouth once daily before breakfast QUERCETIN PO Take 400 mg by mouth every morning (before breakfast). 0 Active QUEtiapine 25 mg oral tablet (20 sources) Atypical Antipsychotic Start: 05-10-2023 End: 04-27-2024 Quetiapine (Seroquel) 25 mg tablet Discontinued 12.5 mg PO AT BEDTIME May 10, 2023 2:50pm April 27, 2024 11:13am Start: 05-06-2023 End: 05-06-2023 take 0.5 tablet by mouth at bedtime Quetiapine (Seroquel) 25 mg tablet Discontinued 25 mg PO AT BEDTIME May 06, 2023 12:00am May 06, 2023 10:48am 1/2 tab at HS Start: 02-10-2023 take 0.5 tablet by m outh once daily at bedtime Seroquel 25 mg oral tablet 0.5 Tablets, Oral, qHS, # 45 tab(s), 0 Refill(s), Pharmacy: [facility], 168, cm, 02/09/23 16:25:00 EDT, Height, kg, 02/09/23 16:25:00 EDT, Dosing Weight Start Date: 02/10/23 Status: Ordered Start: 12-19-2022 End: 06-04-2023 take 1 tablet by mouth at bedtime Quetiapine (Seroquel) 25 mg tablet Discontinued 25 mg PO AT BEDTIME May 10, 2023 12:00am May 10, 2023 2:50pm Quviviq 25 MG tablet (10 sources) End: 10-04-2024 take 1 tablet by mouth once daily Quviviq 25 MG tablet Take 1 tablet by mouth daily. 10/04/2024 Discontinued take 1 tablet by mouth once destiney y Quviviq 25 MG tablet Take 1 tablet by mouth daily. Active simvastatin 40 mg oral tablet (20 sources) HMG-CoA Reductase Inhibitor Start: 05-09-2021 End: 05-10-2023 take 1 tablet by mouth at bedtime Simvastatin 40 mg tablet Discontinued 40 mg PO AT BEDTIME May 06, 2023 12:00am May 10, 2023 2:48pm 50 ml sodium chloride 9 mg/ml injection (8 sources) Start: 10-07-2023 End: 10-07-2023 sodium chloride 0.9 % bolus 500 mL Start: 10-07-2023 End: 10-07-2023 sodium chloride 0.9 % infusi on Start: 10-07-2023 End: 10-07-2023 sodium chloride 0.9% (NS) fl ush 5-40 mL suvorexant 10 mg oral tablet (9 sources) Orexin Receptor Antagonist Start: 12-04-2024 End: 03-01-2025 take 1 tablet by mouth at bedtime Suvorexant (Belsomra) 10 mg tablet Discontinued 10 mg PO AT BEDTIME December 07, 2024 12:00am March 01, 2025 3:34pm tamsulosin hydrochloride 0.4 mg oral capsule (20 sources) alpha-Adrenergic Zina Start: 05-09-2024 End: 03-01-2025 take 1 capsule by mouth once daily Tamsulosin 0.4 mg Capsule Discontinued 0.4 mg PO DAILY@1730 30 0 May 09, 2024 12:00am March 01, 2025 3:35pm thioctic acid 100 mg oral capsule (6 sources) Start: 04-27-2024 End: 12-01-2024 take 1 capsule by mouth twice daily Alpha Lipoic Acid 100 mg capsule Discontinued 100 mg PO TWICE A DAY April 27, 2024 12:00am December 01, 2024 11:29am supplement topiramate 50 mg oral tablet (4 sources) Start: 03-01-2025 End: 04-26-2025 Topiramate 50 mg tablet Discontinued mg PO March 01, 2025 12:00am April 26, 2025 4:02pm Start: 09-15-2023 take 1 tablet by jefry at bedtime topiramate 25 mg oral tablet Dose : 25 mg = 1 tab(s), Oral, qHS, May use GoodRx.if no improvement, after day 3 may incrase to 50mg at bedtime, # 30 tab(s), 0 Refill(s), Pharmacy: [facility], 167, cm, 09/15/23 15:06:00 EST, Height, kg, 09/15/23 15:06:00 EST, Dosing Weight Start Date: 09/15/23 Status: Ordered Ubidecarenone-[place] 3-Vit E (Co [id number] E-Fish Oil) 25-150-200 mg-mg-unit capsule (6 sources) Start: 12-01-2024 End: 03-01-2025 Ubidecarenone-[place] 3-Vit E (Co H-[id number] E-Fish Oil) 25-150-200 mg-mg-unit capsule Discontinued 1 NMA PO daily December 01, 2024 12:00am March 01, 2025 3:35pm Start: 12-01-2024 Ubidecarenone- [place] 3-Vit E (Co B-[id number] E-Fish Oil) 25-150-200 mg-mg-unit capsule Active 1 NMA PO daily December 01, 2024 12:00am vitamin b12 0.5 mg chewable tablet (1 source) Vitamin B12 Start: 05-06-2023 End: 05-10-2023 Mecobalamin (Vitamin B12) 500 mcg tablet,chewable Discontinued 50 ug PO DAILY May 06, 2023 12:00am May 10, 2023 2:48pm vitamin e 100 unt oral tablet (20 sources) Start: 05-06-2023 End: 10-04-2024 take 1 tablet by mouth once daily Vitamin E Mixed 100 unit tablet Discontinued 100 mg PO DAILY May 06, 2023 12:00am April 27, 2024 11:13am Start: 04-14-2022 vitamin E 100 intl units oral capsule Dose : 100 International_Unit = 1 cap(s), Oral, Daily, 0 Refill(s) Start Date: 04/14/22 Status: Ordered zinc acetate 50 mg oral capsule (18 sources) Start: 04-14-2022 End: 04-27-2024 take 1 capsule by mouth three times daily Zinc Acetate 50 mg (zinc) capsule Discontinued 50 mg PO THREE TIMES A DAY May 06, 2023 12:00am April 27, 2024 11:13am zinc gluconate 50 mg oral tablet (20 sources) End: 01-25-2025 take 2 tablets by mouth once daily zinc gluconate 50 MG tablet Take 100 mg by mouth daily. 01/25/2025 Discontinued Problems Active Problems Problem Classification Problem Date Documented Da te Episodic/Chronic Acute and unspecified renal failure (6 sources) Acute renal failure syndrome; Translations: [Acute kidney failure, unspecified] 05-17-2024 Episodic Acute cerebrovascular disease (20 sources) Cerebral hemorrhage; Translations: [Cerebrovascular accident] Onset: 4 05-09-2024 Chronic Anxiety disorders (20 sources) Anxiety disorder; Translations: [Generalized anxiety disorder] Onset: 4 03-22-2019 Chronic Asthma (7 sources) Asthma; Translations: [Unspecified asthma, uncomplicated] Chronic Comment on above: ACITIVITY INDUCED THMA DX'D YRS AGO Blindness and vision defects (16 sources) Binocular vision disorder; Translations: [Unspecified disorder of binocular vision] 03-18-2023 Episodic Cardiac and circulatory congenital anomalies (3 sources) Patent foramen ovale 10-13-2024 Chronic Cardiac dysrhythmias (20 sources) Palpitations; Translations: [Palpitations] Onset: 8 03-18-2023 Episodic Coagulation and hemorrhagic disorders (1 source) Acquired coagulation factor deficiency; 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 Conduction disorders (20 sources) Mobitz type I incomplete atrioventricular block; Translations: [Atrioventricular block, second degree] 07-15-2023 Chronic Coronary atherosclerosis and other heart disease (20 sources) Coronary arteriosclerosis; Translations: [Atherosclerotic heart disease of [place] coronary artery without angina pectoris] 06-20-2024 Chronic Crushing injury or internal injury (1 source) Unspecified injury of left carotid artery, initial encounter; Translations: [Left carotid artery injury] Episodic Diabetes mellitus without complication (20 sources) Prediabetes; Translations: [Prediabetes] Onset: 4 Episodic Diseases of mouth; excluding dental (20 sources) Lesion of oral mucosa 09-21-2019 Episodic Disorders of lipid metabolism (20 sources) Hyperlipidemia; Translations: [Hyperlipidemia, unspecified] Onset: 4 08-18-2014 Chronic E Codes: Adverse effects of medical care (1 source) Complication of surgical procedure; Translations: [Surgical operation with anastomosis, bypass or graft as the cause of abnormal reaction of the patient, or of later complication, without mention of misadventure at the time of the procedure] Episodic Esophageal disorders (1 source) Gastroesophageal reflux disease without esophagitis; Translations: [Gastro-esophageal reflux disease without esophagitis] Chronic Essential hypertension (20 sources) Essential (primary) hypertension; Translations: [Hypertensive disorder] Onset: 8 03-22-2019 Chronic Fever of unknown origin (6 sources) Pyrexia of unknown origin; Translations: [Fever, unspecified] 05-17-2024 Episodic Genitourinary symptoms and ill-defined conditions (6 sources) Retention of urine; Translations: [Retention of urine, unspecified] 04-29-2024 Episodic Headache; including migraine (1 source) Headache; Translations: [Headache, unspecified] Onset: 4 Episodic Heart valve disorders (20 sources) Tricuspid valve regurgitation; Translations: [Rheumatic tricuspid insufficiency] 03-22-2019 Chronic Hepatitis (1 source) Nonalcoholic steatohepatitis; Translations: [Nonalcoholic steatohepatitis (THORNE)] Chronic Hyperplasia of prostate (7 sources) Benign prostatic hypertrophy with outflow obstruction 05-16-2024 Chronic Immunizations and screening for infectious disease (16 sources) Exposure to varicella 02-04-2024 Episodic Intestinal obstruction without hernia (6 sources) Intestinal obstruction co-occurrent and due to decreased peristalsis; Translations: [Ileus, unspecified] 05-17-2024 Episodic Intracranial injury (6 sources) History of concussion injury of brain; Translations: [Personal history of traumatic brain injury] 05-17-2024 Episodic Malaise and fatigue (6 sources) Asthenia; Translations: [Other malaise] 04-27-2024 Episodic Miscellaneous mental health disorders (4 sources) Chronic insomnia; Translations: [Psychophysiologic insomnia] 03-18-2023 Chronic Mood disorders (20 sources) Depressive disorder; Translations: [Recurrent major depression] 03-22-2019 Chronic Mood disorders (2 sources) Mood disorders; Translations: [Depression, unspecified] Onset: Occlusion or stenosis of precerebral arteries (20 sources) Left carotid artery stenosis; Translations: [Carotid artery stenosis] 03-13-2023 Chronic Open wounds of extremities (3 sources) Laceration of finger 10-31-2024 Episodic Other aftercare (6 sources) Long-term current use of diuretic; Translations: [Encounter for therapeutic drug level monitoring] 12-05-2024 Episodic Other and ill-defined cerebrovascular disease (1 source) Cerebrovascular disease; Translations: [Cerebrovascular disease, unspecified] 06-04-2023 Chronic Other circulatory disease (20 sources) Raynaud's disease 08-18-2014 Chronic Other circulatory disease (5 sources) Vascular disorder; Translations: [Other disorders of arteries, arterioles and capillaries in diseases classified elsewhere] 06-20-2024 Chronic Other circulatory disease (7 sources) History of subarachnoid hemorrhage 05-16-2024 Episodic Other circulatory disease (5 sources) Vascular disorder 06-20-2024 Episodic Other circulatory disease (3 sources) History of cerebral hemorrhage 09-06-2024 Episodic Other connective tissue disease (1 source) Spasm; Translations: [Other muscle spasm] Onset: Episodic Other gastrointestinal disorders (17 sources) Dysphagia 09-15-2023 Episodic Other gastrointestinal disorders (1 source) H/O: gastrointestinal disease; Translations: [Personal history of other diseases of the digestive system] Episodic Other hereditary and degenerative nervous system conditions (4 sources) Restless legs; Translations: [Restless legs syndrome] 03-18-2023 Chronic Other liver diseases (2 sources) Steatosis of liver; Translations: [Fatty (change of) liver, not elsewhere classified] Chronic Other liver diseases (18 sources) Non-alcoholic fatty liver 03-13-2023 Chronic Other liver diseases (6 sources) Non-alcoholic fatty liver disease without non-alcoholic steatohepatitis; Translations: [Fatty (change of) liver, not elsewhere classified] 05-17-2024 Chronic Other liver diseases (3 sources) Elevated liver enzymes level 11-04-2021 Episodic Other liver diseases (1 source) Enzyme level - finding; Translations: [Abnormal levels of other serum enzymes] Episodic Other lower respiratory disease (5 sources) Dyspnea on exertion; Translations: [Other forms of dyspnea] 03-18-2023 Episodic Other lower respiratory disease (1 source) Dyspnea; Translations: [Shortness of breath] 05-03-2025 Episodic Other lower respiratory disease (1 source) Persistent cough; Translations: [Persistent cough] 05-03-2025 Episodic Other lower respiratory disease (1 source) Shortness of breath; Translations: [Shortness of breath] Onset: 5 Episodic Other male genital disorders (20 sources) Impotence 03-22-2019 Chronic Other nervous system disorders (1 source) Carpal tunnel syndrome of right wrist; Translations: [Carpal tunnel syndrome, right upper limb] Chronic Other nervous system disorders (6 sources) Neglect of left side of body; Translations: [Neurologic neglect syndrome] 04-27-2024 Episodic Comment on above: Visual and tactile Other non-traumatic joint disorders (7 sources) Hip pain; Translations: [Pain in unspecified hip] Onset: 5 02-02-2025 Episodic Other non-traumatic joint disorders (1 source) Pain in unspecified hip; Translations: [Pain in unspecified hip] Onset: 5 Episodic Other non-traumatic joint disorders (3 sources) Pain in right hip; Translations: [Pain in right hip] Onset: 5 Episodic Other screening for suspected conditions (not mental disorders or infectious disease) (20 sources) Decreased thyroxine level; Translations: [Patient encounter status] 09-15-2022 Episodic Other upper respiratory disease (20 sources) Seasonal allergy 09-21-2019 Chronic Other upper respiratory infections (18 sources) Posterior rhinorrhea 03-13-2023 Episodic Residual codes; unclassified (20 sources) Obstructive sleep apnea syndrome; Translations: [Obstructive sleep apnea (adult) (pediatric)] Onset: 3 09-15-2022 Chronic Comment on above: [employer] Residual codes; unclassified (2 sources) Obstructive sleep apnea (adult) (pediatric); Translations: [Obstructive sleep apnea (adult) (pediatric)] Onset: 5 Chronic Residual codes; unclassified (1 source) Past history of procedure; Translations: [Other specified postprocedural states] Episodic Residual codes; unclassified (20 sources) Family history of cancer of colon 04-14-2022 Episodic Residual codes; unclassified (20 sources) Insomnia; Translations: [Insomnia, unspecified] 04-14-2022 Episodic Residual codes; unclassified (17 sources) Family history of amyotrophic lateral sclerosis 09-15-2023 Episodic Residual codes; unclassified (1 source) Edema; Translations: [Edema, unspecified] Episodic Residual codes; unclassified (2 sources) Insomnia, unspecified; Translations: [Insomnia, unspecified] Onset: 5 Episodic Spondylosis; intervertebral disc disorders; other back problems (10 sources) Degeneration of lumbar intervertebral disc; Translations: [Degenerative disc disease (DDD) of lumbar region with discogenic back pain and leg pa] 02-15-2025 Chronic Syncope (20 sources) Syncope and collapse; Translations: [Syncope and collapse] 03-18-2023 Episodic Comment on above: FOR 30+ YRS WHEN PT' S COUGH HE PASSES OUT, ALMOST LIKE SEIZURE LIKE ACTIVITY Unclassified (1 source) Unknown / UNK(Unknown) Onset: 8 Unclassified (20 sources) Patient encounter status 11-04-2021 Unclassified (19 sources) Advice given 09-15-2022 Unclassified (17 sources) Finding of sensation of pharynx 09-15-2023 Unclassified (1 source) Low back pain, unspecified; Translations: [Low back pain, unspecified] Onset: 5 Past or Other Problems Problem Classification Problem Date Documented Da te Episodic/Chronic Nonspecific chest pain (2 sources) Chest pain, unspecified; Translations: [Chest pain, unspecified] Onset: 09-09-2017 Episodic Other aftercare (1 source) Encounter for therapeutic drug level monitoring; Translations: [Encounter for therapeutic drug level monitoring] Onset: 12-13-2024 Episodic Residual codes; unclassified (20 sources) Difficult venous access; Translations: [Other specified health status] Onset: 02-04-2023 02-04-2023 Episodic Residual codes; unclassified (2 sources) Altered mental status, unspecified; Translations: [Altered mental status, unspecified] Onset: 04-20-2024 Episodic Spondylosis; intervertebral disc disorders; other back problems (17 sources) Backache; Translations: [Dorsalgia, unspecified] Onset: 02-02-2025 02-02-2025 Episodic Results Test Name Value Interpretation Reference Range Facility Orthopedic Visit Reporton Orthopedic Visit Report [facility] Orthopedics [facility] [address] [place] [address] OFFICE VISIT Date of Service: 06/05/25 MR#: [id number] Acct: [id number] Name: TRACY CARDOSO Rep #: [id number] : 1955 Provider: Dr. Saad Vidales MD Age/Sex: 70/M [place] [facility] [facility] [place]: Signed Intake Vital Signs 03/01/25 15:31 04/26/25 15:56 06/05/25 10:27 Height 5 ft 5.5 in 5 ft 5.5 in 5 ft 5.5 in Weight: 196 lb 201 lb BMI 32.1 32.9 Intake Visit Reasons: lumbar spine Chief Complaint: Lumbar spine pre op Accompanied by: Is patient in pain?: No Allergies pollen extracts Allergy (Verified 06/05/25 10:34) RUNNY NOSE Medications ???Medication ???Instructions ???Recorded ???Confirmed ???Type cholecalciferol (vitamin D3) 50 50 mcg PO DAILY supplement 3 06/05/25 History mcg (2,000 unit) capsule ascorbic acid (vitamin C) 500 mg 500 mg PO DAILY SUPPLEMENT #1 TAB 05/09/24 06/05/25 Rx tablet aspirin 81 mg tablet,delayed 81 mg PO BREAKFAST SUPPLEMENT #1 0 05/09/24 06/05/25 Rx release TAB evolocumab 140 mg/mL subcutaneous 140 mg subcut Q2W CHOLESTEROL 06/05/25 History pen injector (Repatha Kevinick) cetirizine 10 mg capsule (Zyrtec) 10 mg PO QDAY PRN allergic sympto ms 02/15/25 06/05/25 History cayenne pepper 1 cap PO DAILY SUPPLEMENT 04/26/25 06/05/25 History garlic 500 mg capsule 500 mg PO QDAY SUPPLEMENT 04/26/25 06/05/25 History lactobacillus combination no.9 4 4,000 mmu cells PO QDAY SUPPLEMENT 04/26/25 06/05/25 History billion cell capsule (Adult 50 Plus Probiotic) carvedilol 25 mg tablet 25 mg PO BID SUPPLEMENT #180 tabs 05/25/25 06/05/25 Rx losartan 100 mg tablet 100 mg PO DAILY HTN 05/29/2506/05 History magnesium glycinate 100 mg (as 100 mg PO DAILY SUPPLEMENT 06/05/25 History glycinate) tablet (Mag Glycinate) nitric oxide gas 4 dose PO DAILY SUPPLEMENT 5 06/05/25 History nitroglycerin 0.4 mg sublingual 0.4 mg sublingual Q5M PRN CHEST 06/05/25 History tablet PAIN tamsulosin 0.4 mg capsule 0.4 mg PO QHS ENLARGED PROSTATE 06/05/25 History Have you fallen in the past year?: No PFSH Medical History Wears glasses Fracture, skull History of echocardiogram History of Holter monitoring Cardiology follow-up encounter CVA (cerebral vascular accident) H/O multiple concussions Coronary artery disease History of anxiety History of restless legs syndrome History of Raynaud's syndrome Wenckebach second degree AV block Syncope Nonalcoholic hepatosteatosis Left carotid artery stenosis Hyperlipidemia, mixed Essential (primary) hypertension Kidney stones Arthritis Back pain Injury of head and neck Blackout History of IBS Sleep apnea Asthma Seasonal allergies Tricuspid valve regurgitation Major depressive disorder Insomnia Prediabetes TARIK (obstructive sleep apnea) Encounter for screening for malignant neoplasm of colon Surgical History H/O repair of biceps tendon History of coronary artery stent placement History of cardiac catheterization History of PTCA 1 History of bilateral carpal tunnel release Hx of surgical procedure History of esophagogastroduodenoscopy (EGD) Hx of shoulder surgery Hx of knee surgery History of Rosa fundoplication Hx of inguinal hernia repair Hx of colonoscopy Family History Daughter Colon cancer Grandmother Colon cancer Unknown Rectal cancer Father Heart disease of a heart attack in his mid 50s Sister Diabetes Mother , Intracerebral bleed at 19 years of age No problems noted. Other Hypertension Social History household members: family and other details: Lives with his spouse and 2 of his children live with him housing: house number of children: 5 current occupational status: employed current occupation: Works at [employer] in [place] Smoking Status: Never smoker alcohol intake: current Alcohol type: beer details: 1-2 cans a week substance use type: does not use and other details: Used to be a pot smoker HPI lumbar spine Details: This documentation accurately reflects the service provided and the decisions made by me, Dr. Saad Vidales MD 06/05/25 1027. Part of today???s visit was documented by Micha Lozada MA, acting as scribe. TRACY CARDOSO is a 70 year old M here today for pre op. Patient doesn't havea ny pain today. He would like to discuss more about surgery. The patient is a 70-year-old male presenting with lumbar spinal stenosis and associated sympto (more content not included)... Normal [facility] Hepatitis A AB, Totalon 10- HEPATITIS A,TOT Negative Normal Negative [facility] Comment on above: Result Comment: Comm ent: The HAV total antibody assay detects both IgG and IgM but does not differentiate between them. A negative result suggests susceptibility to infection. A positive result could be due to vaccination, previously resolved infection or active infection. Testing for HAV IgM should be performed if active HAV infection is suspected. [facility] offers profiles that will automatically reflex positive HAV total antibody results to IgM (e.g., panel #[id number] HAV Antibody w/ Rfx). Performed at: [address] [id number] Nurse Companion: Jerson Valdes PhD, Phone: [phone] Performed By: #### L 3100.0300, L500.2500, BTSPAT, L3890.8282, L100.0100, L3890.6301, L501.9985, L3890.6006, M100.651 ####[facility] [address] [place], [address] MRSA/SAID NASAL SCREENon MRSA+SAID SCRN Reason for Exam: Karlee florence MRSA MRSA Negative S. AUREUS S. aureus Negative Normal [facility] Comment on above: Performed By: #### L 3100.0300, L500.2500, BTSPAT, L3890.6202, L100.0100, L3890.6301, L501.9985, L3890.6006, M100.651 ####[facility] [address] [place], [address] 12 Lead EKGon 05-31-2025 12 Lead EKG [facility] [address] [place] [address] 12 Lead EKG 05/31/25 0940 MR#: [id number] Acct: [id number] Name: TRACY CARDOSO Rep #: [id number] : 1955 69 From: Tano Goldsmith MD Attending Dr: Dr. Saad Vidales MD Status: PRE IN Ordering Dr: Saad Vidales MD Date: 05/31/25 Location: [facility] Sex: M C Admitted: Test Reason : PREOP Blood Pressure : */* mmHG Vent. Rate : 66 BPM Atrial Rate : 66 BPM P-R Int : 204 ms QRS Dur : 90 ms QT Int : 412 ms P-R-T Axes : 31 -11 29 degrees QTcB Int : 431 ms Normal sinus rhythm Normal ECG Confirmed by TANO GOLDSMITH MD ([id number]), video editor SAMIRA NEAL ([id number]) on 05/31/2025 1:18:27 PM Referred By: Saad Vidales Confirmed By: TANO GOLDSMITH MD 05/31/25 1318 Date Tano Goldsmith MD CC: Dr. Saad Vidales MD; Dr. Regis Phillips DO Signed Normal [facility] Basic Metabolic Profile (BMP )on 05-31-2025 BUN/CRE 18.9 RATIO Normal 06-04 [facility] Comment on above: Performed By: #### L 3100.0300, L500.2500, BTSPAT, L3890.6202, L100.0100, L3890.6301, L501.9985, L3890.6006, M100.651 ####[facility] [address] [place], [address] Calcium [Mass/Vol] 9.3 mg/dL Normal 7.6-11.0 [facility] Comment on above: Performed By: #### L 3100.0300, L500.2500, BTSPAT, L3890.6202, L100.0100, L3890.6301, L501.9985, L3890.6006, M100.651 ####[facility] [address] [place], [address] Chloride [Moles/Vol] 104 mmol/L Normal 98-108 [facility] Comment on above: Performed By: #### L 3100.0300, L500.2500, BTSPAT, L3890.6202, L100.0100, L3890.6301, L501.9985, L3890.6006, M100.651 ####[facility] [address] [place], [address] CO2 [Moles/Vol] 23.5 mmol/L Normal 21.0-32.0 [facility] Comment on above: Performed By: #### L 3100.0300, L500.2500, BTSPAT, L3890.6202, L100.0100, L3890.6301, L501.9985, L3890.6006, M100.651 ####[facility] [address] [place], [address] Creatinine [Mass/Vol] 1.09 mg/dL Normal 0.70-1.20 [facility] Comment on above: Performed By: #### L 3100.0300, L500.2500, BTSPAT, L3890.6202, L100.0100, L3890.6301, L501.9985, L3890.6006, M100.651 ####[facility] [address] [place], [address] GAP 13 Normal 5-15 [facility] Comment on above: Performed By: #### L 3100.0300, L500.2500, BTSPAT, L3890.6202, L100.0100, L3890.6301, L501.9985, L3890.6006, M100.651 ####[facility] [address] [place], [address] GFR/1.73 sq M.predicted among non-blacks MDRD (S/P/Bld) [Vol rate/Area] 74 mL/min/{1.73_m2} Normal >60 [facility] Comment on above: Result Comment: mL/m in/1.73m2 CKD-EPI Creatinine Equation (2020) Performed By: #### L 3100.0300, L500.2500, BTSPAT, L3890.6202, L100.0100, L3890.6301, L501.9985, L3890.6006, M100.651 ####[facility] [address] [place], [address] Glucose [Mass/Vol] 106 mg/dL High 70-99 [facility] Comment on above: Performed By: #### L 3100.0300, L500.2500, BTSPAT, L3890.6202, L100.0100, L3890.6301, L501.9985, L3890.6006, M100.651 ####[facility] [address] [place], [address] Potassium [Moles/Vol] 4.4 mmol/L Normal 3.3-5.1 [facility] Comment on above: Performed By: #### L 3100.0300, L500.2500, BTSPAT, L3890.6202, L100.0100, L3890.6301, L501.9985, L3890.6006, M100.651 ####[facility] [address] [place], [address] Sodium [Moles/Vol] 140 mmol/L Normal 133-145 [facility] Comment on above: Performed By: #### L 3100.0300, L500.2500, BTSPAT, L3890.6202, L100.0100, L3890.6301, L501.9985, L3890.6006, M100.651 ####[facility] [address] [place], [address] Urea nitrogen [Mass/Vol] 21 mg/dL High 4-19 [facility] Comment on above: Performed By: #### L 3100.0300, L500.2500, BTSPAT, L3890.6202, L100.0100, L3890.6301, L501.9985, L3890.6006, M100.651 ####[facility] [address] [place], [address] CBC W/Diff, Automatedon 10-1 Absolute Lymph 1.64 X10 3/uL Normal 0.83-4.51 [facility] Comment on above: Performed By: #### L 3100.0300, L500.2500, BTSPAT, L3890.6202, L100.0100, L3890.6301, L501.9985, L3890.6006, M100.651 #### [facility] [address] [place], [address] Absolute Neut 3.6 X10 3/uL Normal 2.0-7.7 [facility] Comment on above: Performed By: #### L 3100.0300, L500.2500, BTSPAT, L3890.6202, L100.0100, L3890.6301, L501.9985, L3890.6006, M100.651 #### [facility] [address] [place], [address] Basophils/100 WBC (Bld) 0.5 % Normal 0-1 [facility] Comment on above: Performed By: #### L 3100.0300, L500.2500, BTSPAT, L3890.6202, L100.0100, L3890.6301, L501.9985, L3890.6006, M100.651 #### [facility] [address] [place], [address] Eosinophils/100 WBC (Bld) 3.4 % Normal 0-5 [facility] Comment on above: Performed By: #### L 3100.0300, L500.2500, BTSPAT, L3890.6202, L100.0100, L3890.6301, L501.9985, L3890.6006, M100.651 #### [facility] [address] [place], [address] Erythrocyte distribution width (RBC) [Ratio] 13.1 % Normal 11.6-14.6 [facility] Comment on above: Performed By: #### L 3100.0300, L500.2500, BTSPAT, L3890.6202, L100.0100, L3890.6301, L501.9985, L3890.6006, M100.651 #### [facility] [address] [place], [address] Hematocrit (Bld) [Volume fraction] 45.4 % Normal 40-54 [facility] Comment on above: Performed By: #### L 3100.0300, L500.2500, BTSPAT, L3890.6202, L100.0100, L3890.6301, L501.9985, L3890.6006, M100.651 #### [facility] [address] [place], [address] Hemoglobin (Bld) [Mass/Vol] 14.4 g/dL Normal 13.0-16.5 [facility] Comment on above: Performed By: #### L 3100.0300, L500.2500, BTSPAT, L3890.6202, L100.0100, L3890.6301, L501.9985, L3890.6006, M100.651 #### [facility] [address] [place], [address] IG% 0.300 Normal 0.0-0.9 [facility] Comment on above: Result Comment: IG% - Immature Granulocytes (promyelocytes, myelocytes and metamyelocytes) > 1% indicates that a LEFT SHIFT is Present. Performed By: #### L 3100.0300, L500.2500, BTSPAT, L3890.6202, L100.0100, L3890.6301, L501.9985, L3890.6006, M100.651 #### [facility] [address] [place], [address] Lymphocytes/100 WBC (Bld) 26.9 % Normal 19-41 [facility] Comment on above: Performed By: #### L 3100.0300, L500.2500, BTSPAT, L3890.6202, L100.0100, L3890.6301, L501.9985, L3890.6006, M100.651 #### [facility] [address] [place], [address] MCH (RBC) [Entitic mass] 30.1 pg Normal 27.0-32.0 [facility] Comment on above: Performed By: #### L 3100.0300, L500.2500, BTSPAT, L3890.6202, L100.0100, L3890.6301, L501.9985, L3890.6006, M100.651 #### [facility] [address] [place], [address] MCHC (RBC) [Mass/Vol] 31.7 g/dL Low 32-36 [facility] Comment on above: Performed By: #### L 3100.0300, L500.2500, BTSPAT, L3890.6202, L100.0100, L3890.6301, L501.9985, L3890.6006, M100.651 #### [facility] [address] [place], [address] MCV (RBC) [Entitic vol] 95.0 fL High 80-94 [facility] Comment on above: Performed By: #### L 3100.0300, L500.2500, BTSPAT, L3890.6202, L100.0100, L3890.6301, L501.9985, L3890.6006, M100.651 #### [facility] [address] [place], [address] Monocytes/100 WBC (Bld) 9.4 % Normal 0-10 [facility] Comment on above: Performed By: #### L 3100.0300, L500.2500, BTSPAT, L3890.6202, L100.0100, L3890.6301, L501.9985, L3890.6006, M100.651 #### [facility] [address] [place], [address] Neutrophils/100 WBC (Bld) 59.5 % Normal 47-70 [facility] Comment on above: Performed By: #### L 3100.0300, L500.2500, BTSPAT, L3890.6202, L100.0100, L3890.6301, L501.9985, L3890.6006, M100.651 #### [facility] [address] [place], [address] Nucleated RBC (Bld) [#/Vol] 0 10*3/uL Normal 0-5 [facility] Comment on above: Performed By: #### L 3100.0300, L500.2500, BTSPAT, L3890.6202, L100.0100, L3890.6301, L501.9985, L3890.6006, M100.651 #### [facility] [address] [place], [address] Platelet mean volume (Bld) [Entitic vol] 9.2 fL Normal 6.2-12.0 [facility] Comment on above: Performed By: #### L 3100.0300, L500.2500, BTSPAT, L3890.6202, L100.0100, L3890.6301, L501.9985, L3890.6006, M100.651 #### [facility] [address] [place], [address] Platelets (Bld) [#/Vol] 263 10*3/uL Normal 150-450 [facility] Comment on above: Performed By: #### L 3100.0300, L500.2500, BTSPAT, L3890.6202, L100.0100, L3890.6301, L501.9985, L3890.6006, M100.651 #### [facility] [address] [place], [address] RBC (Bld) [#/Vol] 4.78 10*6/uL Normal 4.6-6.2 [facility] Comment on above: Performed By: #### L 3100.0300, L500.2500, BTSPAT, L3890.6202, L100.0100, L3890.6301, L501.9985, L3890.6006, M100.651 #### [facility] [address] [place], [address] RDW SD 45.7 fl High 35.1-43.9 [facility] Comment on above: Performed By: #### L 3100.0300, L500.2500, BTSPAT, L3890.6202, L100.0100, L3890.6301, L501.9985, L3890.6006, M100.651 #### [facility] [address] [place], [place], [id number] WBC (Bld) [#/Vol] 6.1 10*3/uL Normal 4.4-11.0 [facility] Comment on above: Performed By: #### L 3100.0300, L500.2500, BTSPAT, L3890.6202, L100.0100, L3890.6301, L501.9985, L3890.6006, M100.651 #### [facility] [address] [place], [place], [address] HIVon 05-31-2025 HIV Non-Reactive Normal Nonreactive [facility] Comment on above: Result Comment: Non- Reactive Reactive Repeatedly reactive samples must be confirmed according to CDC recommended confirmatory algorithms. The subresults for either HIVAG or AHIV can be used as an aid in the selection of the confirmation algorithm for reactive samples. Send out specimens with Reactive results to [facility] for confirmation. Order the HIV antibody detection and differentiation: lc#[id number] Performed By: #### L 3100.0300, L500.2500, BTSPAT, L3890.6202, L100.0100, L3890.6301, L501.9985, L3890.6006, M100.651 ####[facility] [address] [place], [place], [address] Hemoglobin A1con 0 HbA1c (Bld) [Mass fraction] 6.1 % High <=5.6 [facility] Comment on above: Result Comment: Norm al < 5.7 % Prediabetic 5.7 - 6.4 % Diabetic >or= 6.5 % Please note range changes. Performed By: #### L 3100.0300, L500.2500, BTSPAT, L3890.6202, L100.0100, L3890.6301, L501.9985, L3890.6006, M100.651 #### [facility] [address] [facility] [place], [place], [id number] Hepatitis B Surface Antibody on 05-31-2025 HEP B Surf Ab REAC Normal [facility] Comment on above: Result Comment: <8.5 mIU/mL: Non-Reactive 8.5<= x <11.5 mIU/mL: Indeterminate >=11.5 mIU/mL: Reactive Non Reactive: Inconsistent with immunity less than <10 mIU/mL Reactive: Consistent with immunity greater than or equal to 10 mIU/mL Performed By: #### L 3100.0300, L500.2500, BTSPAT, L3890.6202, L100.0100, L3890.6301, L501.9985, L3890.6006, M100.651 ####[facility] [address] [facility] [place], [place], [id number] Hepatitis C Antibodyon 05-31 Hepatitis C Ab Non-Reactive Normal Nonreactive [facility] Comment on above: Result Comment: Reac tive: Presumptive evidence of antibodies to HCV. Follow CDC recommendations for supplemental testing. Non-Reactive: Antibodies to HCV were not detected; does not exclude the possibility of exposure to HCV Reactive Results are presumptive evidence of antibodies to HCV. Follow CDC recommendations for supplemental testing. Order confirmation testing: HCV Quant by PCR testing - HCVPCR #[id number] Non Reactive: < 0.8 Equivocal: >/= 0.8 to < 1.0 Reactive: >/= 1.0 The CDC requires that a reactive/equivocal HCV antibody result be sent out for confirmation. HCV Quant by PCR testing. Performed By: #### L 3100.0300, L500.2500, BTSPAT, L3890.6202, L100.0100, L3890.6301, L501.9985, L3890.6006, M100.651 ####[facility] [address] [place], [address] MR/CJJayy 05-31-2025 MR/[facility] Medical Records Department [address] [place] [address] PAT - Anesthesia 05/31/25 1531 MR#: [id number] Acct: [id number] Name: TRACY CARDOSO Rep #: [id number] : 1955 69 From: Thanh Maloney MD PCP: Dr. Regis Phillips, DO Status:PRE IN Y Race: C Location: [facility] Pre-Assessment Diagnosis/Proposed Procedure Planned Operative Procedure(s): ERAS 360 LUMBAR FUSION L3-4, LUMBAR LAMINECTOMY DECOMPRESSION Anesthesia History Anesthesia History - water tester: Anesthesia History - water tester Hx Hospitalization No: STROKE 04/2024 NO 05/29/25 10:13 DEFICITS Any Problems With Anesthesia No 05/29/25 10:13 Cholinesterase deficiency No 05/29/25 10:13 You/Your Family Experience No 05/29/25 10:13 fever (hyperthermia) with Relationship Recent Exposure to Contagious No 02/05/25 09:18 Disease Does patient have nerve No 05/29/25 10:13 stimulator Patient instructed to have device shut off --Does patient have Pacemaker or ICD? When Was Last Pacemaker Check QUESTION #4 FULL TEXT: You/Your Family Experience fever (hyperthermia) with Anesthesia Last Oral Intake Last Oral intake: Last Oral Intake NPO since Meds taken in AM with sips of water? Meds patient instructed to take am of surgery PONV PONV - water tester: PONV - water tester Female No 05/29/25 10:13 HX of Motion Sickness No 05/29/25 10:13 HX of N/V After Surgery No 05/29/25 10:13 Non-Smoker Yes 05/29/25 10:13 Duration of Surgery greater Yes 05/29/25 10:13 than 60 minutes Number of Risk Factors 2 05/29/25 10:13 PONV Score Moderate Risk 05/29/25 10:13 Height Weight Height Weight: Anesthesia: Height Weight Height 5 ft 5.5 in 03/01/25 15:31 Respiratory Assessment Respiratory Assessment - water tester: Respiratory Tract Infection Hx - water tester Hx Respiratory Tract Infection No 05/29/25 10:13 STOP Sleep Apnea STOP Sleep Apnea - water tester: STOP Sleep Apnea - water tester Hx Hypertension Yes: CONTROLLED WITH MEDS 05/29/25 10:13 Hx Sleep Apnea Yes: HAS IMPLANTABLE DEVICE, 05/29/25 10:13 DOES NOT WORK CPAP No 05/29/25 10:13 BIPAP No 05/29/25 10:13 Do you snore loudly (louder than talking or can be heard Do you often feel tired/ fatigued/ sleepy during daytime? Has anyone observed you stop breathing during sleep? STOP Results Positive 05/29/25 10:13 QUESTION #5 FULL TEXT : Do you snore loudly (louder than talking or can be heard through closed doors)? 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 Specify any problems Hx of Preganancy in last 3 N/A 05/29/25 10:13 Months Nurse Filling Out Transfusion [email or web address] 05/29/25 10:13 Questions: Date: 05/29/25 05/29/25 10:13 Time: 10:20 05/29/25 10:13 Patient unable to answer at this time (ie. confused, unrespo /Reproduction History /Reproductive History - water tester: /Reproductive Hx- water tester Hx Now Gestational Age (in weeks): EDC: Hx Hx Para Hx Section SAB PFSH Medical History (Updated 05/29/25 @ 10:28 by [place] Tenorio) Wears glasses Fracture, skull History of echocardiogram History of Holter monitoring Cardiology follow-up encounter CVA (cerebral vascular accident) H/O multiple concussions Coronary artery disease History of anxiety History of restless legs syndrome History of Raynaud's syndrome Wenckebach second degree AV block Syncope Nonalcoholic hepatosteatosis Left carotid artery stenosis Hyperlipidemia, mixed Essential (primary) hypertension Kidney stones Arthritis Back pain Injury of head and neck Blackout History of IBS Sleep apnea Asthma Seasonal allergies Tricuspid valve regurgitation Major depressive disorder Insomnia Prediabetes TARIK (obstructive sleep apnea) Encounter for screening for malignant neoplasm of colon Home Medications ???Medication ???Instructions ???Recorded ???Last (more content not included)... Normal [facility] Magnesiumon 05-31-2025 Magnesium [Mass/Vol] 2.2 mg/dL Normal 1.5-2.2 [facility] Comment on above: Performed By: #### L 501.5200 #### [facility] [address] [place], [place], [id number] Type AND Screen - PAT ONLYo n 05-31-2025 ABO and Rh group Nom (Bld) Blood group A Rh(D) negative Normal [facility] Comment on above: Order Comment: Surge ry Date: 06/12/25Reason for Laboratory Test [id number] LUMBAR FUSION Performed By: #### L 3100.0300, L500.2500, BTSPAT, L3890.6202, L100.0100, L3890.6301, L501.9985, L3890.6006, M100.651 ####[facility] [id number] [place], [place], [address] Absolute lymphocyte countOrd ered By: Victorino Gonzalez on 05-03-2025 Lymphocytes Auto (Unsp spec) [#/Vol] 2.12 10*3/uL 0.83-4.51 [facility] Absolute neutrophil countOrd ered By: Victorino Gonzalez on 05-03-2025 Neutrophils (Bld) [#/Vol] 4.1 10*3/uL 2.0-7.7 [facility] Anion gap in Serum or Plasma Ordered By: Victorino Gonzalez on 05-03-2025 Anion gap [Moles/Vol] 14 mmol/L 5-15 [facility] Automated lymphocyte count a s percentage of total leukocytesOrdered By: Victorino Gonzalez on 05-03-2025 Lymphocytes/100 WBC Auto (Unsp spec) 29.6 % 19-41 [facility] BUN/creatinine ratioOrdered By: Victorino Gonzalez on 05-03-2025 Urea nitrogen/Creatinine [Mass ratio] 21.7 mg/mg High 10- [facility] Basic Metabolic Profile (BMP )on 05-03-2025 BUN/CRE 21.7 RATIO High - [facility] Comment on above: Performed By: #### L 503.7505, L500.2500, L100.0100 #### [facility] [address] [place], [address] Calcium [Mass/Vol] 9.4 mg/dL Normal 7.6-11.0 [facility] Comment on above: Performed By: #### L 503.7505, L500.2500, L100.0100 #### [facility] [address] [place], [address] Chloride [Moles/Vol] 106 mmol/L Normal 98-108 [facility] Comment on above: Performed By: #### L 503.7505, L500.2500, L100.0100 #### [facility] [address] [place], [address] CO2 [Moles/Vol] 22.2 mmol/L Normal 21.0-32.0 [facility] Comment on above: Performed By: #### L 503.7505, L500.2500, L100.0100 #### [facility] [address] [place], [address] Creatinine [Mass/Vol] 1.09 mg/dL Normal 0.70-1.20 [facility] Comment on above: Performed By: #### L 503.7505, L500.2500, L100.0100 #### [facility] [address] [place], [address] GAP 14 Normal 5-15 [facility] Comment on above: Performed By: #### L 503.7505, L500.2500, L100.0100 #### [facility] [address] [place], [address] GFR/1.73 sq M.predicted among non-blacks MDRD (S/P/Bld) [Vol rate/Area] 74 mL/min/{1.73_m2} Normal >60 [facility] Comment on above: Result Comment: mL/m in/1.73m2 CKD-EPI Creatinine Equation (2020) Performed By: #### L 503.7505, L500.2500, L100.0100 #### [facility] [address] [place], [address] Glucose [Mass/Vol] 103 mg/dL High 70-99 [facility] Comment on above: Performed By: #### L 503.7505, L500.2500, L100.0100 #### [facility] [address] [place], [address] Potassium [Moles/Vol] 4.3 mmol/L Normal 3.3-5.1 [facility] Comment on above: Performed By: #### L 503.7505, L500.2500, L100.0100 #### [facility] [address] [place], [address] Sodium [Moles/Vol] 141 mmol/L Normal 133-145 [facility] Comment on above: Performed By: #### L 503.7505, L500.2500, L100.0100 #### [facility] [address] [place], [address] Urea nitrogen [Mass/Vol] 24 mg/dL High 4-19 [facility] Comment on above: Performed By: #### L 503.7505, L500.2500, L100.0100 #### [facility] [address] [place], [address] Basophil percentageOrdered B y: Victorino Gonzalez on 05-03-2025 Basophils/100 WBC (Bld) 0.6 % 0-1 [facility] CBC W/Diff, Automatedon 09-1 -2024 Absolute Lymph 2.12 X10 3/uL Normal 0.83-4.51 [facility] Comment on above: Performed By: #### L 503.7505, L500.2500, L100.0100 #### [facility] [address] [place], [address] Absolute Neut 4.1 X10 3/uL Normal 2.0-7.7 [facility] Comment on above: Performed By: #### L 503.7505, L500.2500, L100.0100 #### [facility] [address] [place], [address] Basophils/100 WBC (Bld) 0.6 % Normal 0-1 [facility] Comment on above: Performed By: #### L 503.7505, L500.2500, L100.0100 #### [facility] [address] [place], [address] Eosinophils/100 WBC (Bld) 3.6 % Normal 0-5 [facility] Comment on above: Performed By: #### L 503.7505, L500.2500, L100.0100 #### [facility] [address] [place], [address] Erythrocyte distribution width (RBC) [Ratio] 13.4 % Normal 11.6-14.6 [facility] Comment on above: Performed By: #### L 503.7505, L500.2500, L100.0100 #### [facility] [address] [place], [address] Hematocrit (Bld) [Volume fraction] 45.9 % Normal 40-54 [facility] Comment on above: Performed By: #### L 503.7505, L500.2500, L100.0100 #### [facility] [address] [place], [address] Hemoglobin (Bld) [Mass/Vol] 15.3 g/dL Normal 13.0-16.5 [facility] Comment on above: Performed By: #### L 503.7505, L500.2500, L100.0100 #### [facility] [address] [place], [address] IG% 0.300 Normal 0.0-0.9 [facility] Comment on above: Result Comment: IG% - Immature Granulocytes (promyelocytes, myelocytes and metamyelocytes) > 1% indicates that a LEFT SHIFT is Present. Performed By: #### L 503.7505, L500.2500, L100.0100 #### [facility] [address] [place], [address] Lymphocytes/100 WBC (Bld) 29.6 % Normal 19-41 [facility] Comment on above: Performed By: #### L 503.7505, L500.2500, L100.0100 #### [facility] [address] [place], [address] MCH (RBC) [Entitic mass] 30.9 pg Normal 27.0-32.0 [facility] Comment on above: Performed By: #### L 503.7505, L500.2500, L100.0100 #### [facility] [address] [place], [address] MCHC (RBC) [Mass/Vol] 33.3 g/dL Normal 32-36 [facility] Comment on above: Performed By: #### L 503.7505, L500.2500, L100.0100 #### [facility] [address] [place], [address] MCV (RBC) [Entitic vol] 92.7 fL Normal 80-94 [facility] Comment on above: Performed By: #### L 503.7505, L500.2500, L100.0100 #### [facility] [address] [place], [address] Monocytes/100 WBC (Bld) 8.8 % Normal 0-10 [facility] Comment on above: Performed By: #### L 503.7505, L500.2500, L100.0100 #### [facility] [address] [place], [address] Neutrophils/100 WBC (Bld) 57.1 % Normal 47-70 [facility] Comment on above: Performed By: #### L 503.7505, L500.2500, L100.0100 #### [facility] [address] [place], [address] Nucleated RBC (Bld) [#/Vol] 0 10*3/uL Normal 0-5 [facility] Comment on above: Performed By: #### L 503.7505, L500.2500, L100.0100 #### [facility] [address] [place], [address] Platelet mean volume (Bld) [Entitic vol] 9.6 fL Normal 6.2-12.0 [facility] Comment on above: Performed By: #### L 503.7505, L500.2500, L100.0100 #### [facility] [address] [place], [address] Platelets (Bld) [#/Vol] 279 10*3/uL Normal 150-450 [facility] Comment on above: Performed By: #### L 503.7505, L500.2500, L100.0100 #### [facility] [address] [place], [address] RBC (Bld) [#/Vol] 4.95 10*6/uL Normal 4.6-6.2 [facility] Comment on above: Performed By: #### L 503.7505, L500.2500, L100.0100 #### [facility] [address] [place], [address] RDW SD 45.1 fl High 35.1-43.9 [facility] Comment on above: Performed By: #### L 503.7505, L500.2500, L100.0100 #### [facility] [address] [place], [address] WBC (Bld) [#/Vol] 7.2 10*3/uL Normal 4.4-11.0 [facility] Comment on above: Performed By: #### L 503.7505, L500.2500, L100.0100 #### [facility] [address] [place], [address] Carbon dioxide, total [Moles /volume] in Central venous bloodOrdered By: Victorino Gonzalez on 05-03-2025 CO2 [Moles/Vol] 22.2 mmol/L 21.0-32.0 [facility] Chest PA and Lateralon 05-03 Chest PA and Lateral [facility] [address] [place] [address] Chest PA and Lateral MR#: [id number] Acct: [id number] Name: TRACY CARDOSO Rep #: [id number] : 1955 M 69 From: Alex jaime MD PCP: Dr. 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 The heart mediastinum are normal. Coronary arterial stent present. No acute cardiopulmonary process. Lungs are clear. No pneumothorax or effusion present. Multilevel degenerative disc disease through the spine. Upper abdomen is within normal limits. RAD/Chest PA and Lateral IMPRESSION: No acute cardiopulmonary process or significant change. Reading Location: [facility] CC: KAYLEIGH Gonzalez; Dr. Regis Phillips DO Healthcare Sales Representative: Signed Normal [facility] Chloride assayOrdered By: Brooke Gonzalez on 05-03-2025 Chloride [Moles/Vol] 106 mmol/L 98-108 [facility] Eosinophil percentageOrdered By: Victorino Gonzalez on 05-03-2025 Eosinophils/100 WBC (Bld) 3.6 % 0-5 [facility] Erythrocyte distribution wid th ratioOrdered By: Victorino Gonzalez on 05-03-2025 Erythrocyte distribution width (RBC) [Ratio] 13.4 % 11.6-14.6 [facility] Erythrocyte distribution wid th standard deviationOrdered By: Victorino Gonzalez on 05-03-2025 Erythrocyte distribution width (RBC) [Ratio] 45.1 fl High 35.1-43.9 [facility] Glomerular filtration rate ( GFR) estimation/1.73 sq m using serum, plasma, or whole bOrdered By: Victorino Gonzalez on 05-03-2025 GFR/1.73 sq M.predicted among non-blacks MDRD (S/P/Bld) [Vol rate/Area] 74 mL/min/{1.73_m2} >60 [facility] Comment on above: mL/min/1.73m2 CKD-EP I Creatinine Equation (2020) Hematocrit Auto (Bld) [Volum e fraction]Ordered By: Victorino Gonzlaez on 05-03-2025 Hematocrit (Bld) [Volume fraction] 45.9 % 40-54 [facility] Hemoglobin measurementOrdere d By: Victorino Gonzalez on 05-03-2025 Hemoglobin (Bld) [Mass/Vol] 15.3 g/dL 13.0-16.5 [facility] Immature granulocytes/100 WB C Auto (Bld)Ordered By: Victorino Gonzalez on 05-03-2025 Immature granulocytes/100 WBC (Bld) 0.300 % 0.0-0.9 [facility] Comment on above: IG% - Immature Granu locytes (promyelocytes, myelocytes and metamyelocytes) > 1% indicates that a LEFT SHIFT is Present. MCV (mean corpuscular volume ) determinationOrdered By: Victorino Gonzalez on 05-03-2025 MCV (RBC) [Entitic vol] 92.7 fL 80-94 [facility] Mean corpuscular hemoglobin (MCH) determinationOrdered By: Victorino Gonzalez on 05-03-2025 MCH (RBC) [Entitic mass] 30.9 pg 27.0-32.0 [facility] Mean corpuscular hemoglobin concentration (MCHC) determinationOrdered By: Victroino Gonzalez on 05-03-2025 MCHC (RBC) [Mass/Vol] 33.3 g/dL 32-36 [facility] Mean platelet volume determi nationOrdered By: Victorino Gonzalez on 05-03-2025 Platelet mean volume (Bld) [Entitic vol] 9.6 fL 6.2-12.0 [facility] Monocyte percentageOrdered B y: Victorino Gonzalez on 05-03-2025 Monocytes/100 WBC (Bld) 8.8 % 0-10 [facility] Natriuretic peptide.B prohor paulina N-Terminal [Mass/volume] in Serum or PlasmaOrdered By: Victorino Gonzalez on 05-03-2025 Natriuretic peptide.B prohormone N-Terminal [Mass/Vol] < 36 pg/mL <900 [facility] Comment on above: Heart Failure Unlike ly: < 300 pg/mLHeart Failure Likely< 50 Years: > 450 pg/mL50-75 Years: > 900 pg/mL>75 Years: > 1800 pg/mL Neutrophil percentageOrdered By: Victorino Gonzalez on 05-03-2025 Neutrophils/100 WBC (Bld) 57.1 % 47-70 [facility] Nucleated red blood cell per centageOrdered By: Victorino Gonzalez on 05-03-2025 Nucleated RBC/100 WBC (Bld) [Ratio] 0 % 0-5 [facility] Platelet countOrdered By: Brooke Gonzalez on 05-03-2025 Platelets (Bld) [#/Vol] 279 10*3/uL 150-450 [facility] Potassium measurement (mass/ volume)Ordered By: Victorino Gonzalez on 05-03-2025 Potassium (Unsp spec) [Mass/Vol] 4.3 mmol/L 3.3-5.1 [facility] Pro- Brain NATRIURETIC PEPTI Mike 05-03-2025 proBNP < 36 Normal <=900 [facility] Comment on above: Result Comment: Hear t Failure Unlikely: < 300 pg/mL Heart Failure Likely < 50 Years: > 450 pg/mL 50-75 Years: > 900 pg/mL >75 Years: > 1800 pg/mL Performed By: #### L 503.7505, L500.2500, L100.0100 #### [facility] [address] [place], [address] RBC Auto (Bld) [#/Vol]Ordere d By: Victorino Gonzalez on 05-03-2025 RBC (Bld) [#/Vol] 4.95 10*6/uL 4.6-6.2 [facility] Serum creatinine measurement (mass/volume)Ordered By: Victorino Gonzalez on 05-03-2025 Creatinine [Mass/Vol] 1.09 mg/dL 0.70-1.20 [facility] Serum glucose measurement (m ass/volume)Ordered By: Victorino Gonzalez on 05-03-2025 Glucose [Mass/Vol] 103 mg/dL High 70-99 [facility] Serum or plasma calcium gurinder urement (mass/volume)Ordered By: Victorino Gonzalez on 05-03-2025 Calcium [Mass/Vol] 9.4 mg/dL 7.6-11.0 [facility] Serum or plasma urea nitroge n measurement (mass/volume)Ordered By: Victorino Gonzalez on 05-03-2025 Urea nitrogen [Mass/Vol] 24 mg/dL High 4-19 [facility] Sodium levelOrdered By: Victorino Gonzalez on 05-03-2025 Sodium [Moles/Vol] 141 mmol/L 133-145 [facility] White blood cell (WBC) count Ordered By: Victorino Gonzalez on 05-03-2025 WBC (Bld) [#/Vol] 7.2 10*3/uL 4.4-11.0 [facility] Cardiology Visit Reporton Cardiology Visit Report [facility] [place] [facility] [address] [place] [address] OFFICE VISIT Date of Service: 04/26/25 MR#: [id number] Acct: [id number] Name: TRACY CARDOSO Rep #: [id number] : 1955 Provider: KAYLEIGH ho Age/Sex: 69/M Location: [facility] Status: Signed HPI HPI History of Present Illness Details: 69-year-old man who had previously seen us with Sherry candelaria and was asked to follow-up but unfortunately did not. He apparently underwent a coronary calcium score which we think was abnormal and then underwent a left heart catheterization in April 2024 it demonstrated high- grade lesion in the left anterior descending artery of 80% in the proximal LAD he underwent angioplasty and stenting after an FFR was noted to be abnormal. This was successful but unfortunately subsequently he did suffer a cerebrovascular accident. He says that he has not quite been the same since. He has blood pressures have been going up and down. He denies chest, arm, jaw, or neck discomfort. He denies palpitations. He denies bilateral lower extremity edema. He denies claudication. He denies shortness of breath with activity, shortness of breath at rest, orthopnea, or PND. He denies chronic cough. He denies significant, sudden weight gain. He states dizziness that he attributes to previous stroke. He acknowledges balance related issues. He denies lightheadedness, near-syncope, or syncope. He denies blood in urine, blood in stool, or epistaxis. He denies fever with chills. He denies myalgia. He states difficulty sleeping and fatigue. His exercise level has remained stable. Intake Vital Signs 03/01/25 15:31 04/26/25 15:56 Height 5 ft 5.5 in 5 ft 5.5 in Weight: 196 lb 203 lb BMI 32.1 33.3 BP 166/84 H Blood Pressure Location Lt brachial Position Sitting Respiration 16 Pulse 81 Pulse Source NIBP Intake Visit Reasons: OVERDUE FU Literacy Education Professor Required: No Is patient in pain?: No Allergies Environmental Allergies: Uncoded (seasonal) Allergy (Severe, Verified 04/26/25 15:59) Runny nose Medications ???Medication ???Instructions ???Recorded ???Confirmed ???Type cholecalciferol (vitamin D3) 50 50 mcg PO DAILY supplement 3 04/26/25 History mcg (2,000 unit) capsule ascorbic acid (vitamin C) 500 mg 500 mg PO DAILY #1 TAB 05/09/24 Rx tablet aspirin 81 mg tablet,delayed 81 mg PO BREAKFAST #1 TAB 05/09/24 04/26/25 Rx release carvedilol 25 mg tablet 25 mg PO BID 12/01/24 04/26/25 His tory evolocumab 140 mg/mL subcutaneous 140 mg subcut Q2W 12/01/24 History pen injector (Ayaka Retana) cetirizine 10 mg capsule (Zyrtec) 10 mg PO QDAY PRN 02/15/25 History cayenne pepper 1 cap PO DAILY 04/26/25 History garlic 500 mg capsule 500 mg PO QDAY 04/26/25 04/26/25 H istory lactobacillus combination no.9 4 4,000 mmu cells PO QDAY 04/26/25 0 04/26/25 History billion cell capsule (Adult 50 Plus Probiotic) Ejection fraction %: 58 Have you fallen in the past year?: Yes PFSH Medical History (Updated 05/03/25 @ 08:39 by Nicole Valdivia) Coronary artery disease CVA (cerebral vascular accident) H/O multiple concussions Encounter for screening for malignant neoplasm of colon History of anxiety History of restless legs syndrome History of Raynaud's syndrome Wenckebach second degree AV block Syncope Nonalcoholic hepatosteatosis Left carotid artery stenosis Hyperlipidemia, mixed Essential (primary) hypertension Kidney stones Arthritis Back pain Injury of head and neck Blackout History of IBS Sleep apnea Asthma Seasonal allergies Tricuspid valve regurgitation Major depressive disorder Insomnia Prediabetes TARIK (obstructive sleep apnea) Surgical History History of PTCA 1 History of bilateral carpal tunnel release Hx of surgical procedure History of esophagogastroduodenoscopy (EGD) Hx of shoulder surgery Hx of knee surgery History of Rosa fundoplication Hx of inguinal hernia repair Hx of colonoscopy Family History Daughter Colon cancer Grandmother Colon cancer Unknown Rectal cancer Father Heart disease of a heart attack in his mid 50s Sister Diabetes Mother , Intracerebral bleed at 19 years of age No problems noted. Other Hypertension Social History household members: family and other details: Lives with his spouse and 2 of his children live with him housing: house number of children: 5 current occupational status: employed current occupation: Works at [employer] in [place] Smoking Status: Never smoker alcohol intake: current Alcohol type: beer details (more content not included)... Normal [facility] Orthopedic Visit Reporton Orthopedic Visit Report [facility] [address] [place] [address] OFFICE VISIT Date of Service: 03/01/25 MR#: [id number] Acct: [id number] Name: TRACY CARDOSO Rep #: [id number] : 1955 Provider: SERVANDO Hunter Age/Sex: 69/M [place] [facility] [place] Status: Signed Intake Vital Signs 02/15/25 14:25 03/01/25 15:31 Height 5 ft 5.5 in 5 ft 5.5 in Weight: 197 lb 196 lb BMI 32.3 32.1 Intake Visit Reasons: LUMBAR SPINE Chief Complaint: Lumbar spine MRI review Accompanied by: Self Is patient in pain?: No Allergies Environmental Allergies: Uncoded (seasonal) Allergy (Severe, Verified 03/01/25 15:34) Runny nose Medications ???Medication ???Instructions ???Recorded ???Confirmed ???Type cholecalciferol (vitamin D3) 50 50 mcg PO DAILY supplement 3 03/01/25 History mcg (2,000 unit) capsule ascorbic acid (vitamin C) 500 mg 500 mg PO DAILY #1 TAB 05/09/24 Rx tablet aspirin 81 mg tablet,delayed 81 mg PO BREAKFAST #1 TAB 05/09/24 03/01/25 Rx release clopidogrel 75 mg tablet (Plavix) 75 mg PO DAILY blood thinner #30 05/09/24 03/01/25 Rx tabs carvedilol 25 mg tablet 25 mg PO BID 12/01/24 03/01/25 His tory escitalopram oxalate 5 mg tablet 5 mg PO QDAY 12/01/24 03/01/25 His tory evolocumab 140 mg/mL subcutaneous 140 mg subcut Q2W 12/01/24 History pen injector (Ayaka Retana) cetirizine 10 mg capsule (Zyrtec) 10 mg PO QDAY PRN 02/15/25 History topiramate 50 mg tablet mg PO 03/01/25 03/01/25 History Have you fallen in the past year?: No PFSH Medical History Coronary artery disease CVA (cerebral vascular accident) H/O multiple concussions Encounter for screening for malignant neoplasm of colon History of anxiety History of restless legs syndrome History of Raynaud's syndrome Wenckebach second degree AV block Syncope Nonalcoholic hepatosteatosis Left carotid artery stenosis Hyperlipidemia, mixed Essential (primary) hypertension Kidney stones Arthritis Back pain Injury of head and neck Blackout History of IBS Sleep apnea Asthma Seasonal allergies Tricuspid valve regurgitation Major depressive disorder Insomnia Prediabetes TARIK (obstructive sleep apnea) Surgical History History of PTCA 1 History of bilateral carpal tunnel release Hx of surgical procedure History of esophagogastroduodenoscopy (EGD) Hx of shoulder surgery Hx of knee surgery History of Rosa fundoplication Hx of inguinal hernia repair Hx of colonoscopy Family History Daughter Colon cancer Grandmother Colon cancer Unknown Rectal cancer Father Heart disease of a heart attack in his mid 50s Sister Diabetes Mother , Intracerebral bleed at 19 years of age No problems noted. Other Hypertension Social History household members: family and other details: Lives with his spouse and 2 of his children live with him housing: house number of children: 5 current occupational status: employed current occupation: Works at [employer] in [place] Smoking Status: Never smoker alcohol intake: current Alcohol type: beer details: 1-2 cans a week substance use type: does not use and other details: Used to be a pot smoker HPI LUMBAR SPINE Details: This documentation accurately reflects the service provided and the decisions made by , SERVANDO Hunter 03/01/25 [id number]. Part of today???s visit was documented by Micha Lozada MA, acting as scribe. TRACY CARDOSO is a 69 year old M here today for lumbar spine MRI review. Patient would like to go over the MRI to discuss what the next step would be. He states that he hasn't had any recent injections since his last appointment. Patient hasn't done any physical therapy. He states that his lower back pain has decreased, since the acute flare that he had back in January however he continues to have chronic pain which he has been having for several years at this point. Patient's pain makes it difficult for him to stand or walk for extended periods of time. This has been a progressively worsening issue. Currently the patient is only able to stand for about half an hour before he has to sit down due to the pain. Because of this the patient has quit his job. Patient hasn't done a whole lot of work, he has been taking it easy. History of a fundoplasty surgery with midline incision. Sees cardiology with Dr. Goldsmith. Patient is on Plavix following a stroke in April 2024, patient says that the plan was for him to be on Plavix for a year which will be com (more content not included)... Normal [facility] APOBon 02-24-2025 Apolipoprotein B [Mass/Vol] 73 mg/dL Normal <90 [facility] Comment on above: Result Comment: Laura beltre < 90 Borderline High 90 - 99 High 100 - 130 Very High >130 ASCVD RISK THERAPEUTIC TARGET CATEGORY APO B (mg/dL) Very High Risk <80 (if extreme risk <70) High Risk <90 Moderate Risk <90 Performed At: [facility] [id number] Lucho Gonzalez MD Ph:[phone] Performed By: #### L IPID, A1C, [id number], [id number] #### [facility] [address] [place], [place] [address] Magnetic resonance imaging r eportOrdered By: Elliott Stern on 02-23-2025 Study report [facility] Imaging Services [address] [place] [address] Spine Lumbar (Routine) MR#: [id number] Acct: [id number] Name: TRACY CARDOSO Rep #: [id number] : 1955 M 69 From: Svetlana Stern MD PCP: Dr. Regis Phillips, DO Status: REG CLI Study:Spine Lumbar (Routine) Date of Exam: 02/22/25 Exam# [id number] Ordering Dr: Jaylon Giraldo PROCEDURE: SPINE LUMBAR (ROUTINE) 02/22/2025 REASON FOR EXAM: PAIN, STENOSIS TECHNIQUE: SPINE LUMBAR (ROUTINE) COMPARISON: The prior radiograph dated 02.15.2025 and MR study dated were reviewed FINDINGS: There is minimal anterolisthesis of L4 vertebra likely secondary to L4-5 facet joint arthropathy. Reduced lumbar lordosis. There is no substantial scoliosis. Normal conus medullaris and the cord roots. Lumbar spine degenerative changes are seen in the form of marginal osteophytes of the opposing vertebral endplates and reduced height and bright T2 signal of the intervertebral discs denoting degeneration. No Modic changes seen. T12-L1: Normal endplates. Reduced disc height and hydration. A 2 mm central left paracentral posterior disc protrusion is seen abutting the thecal sac. Normal bilateral facet joints. Normal central canal and bilateral lateral recesses. Normal bilateral intervertebral neural foramina. Unchanged since the last study. L1-2: Normal endplates. Normal disc morphology. Reduced disc height and hydration denoting its degeneration. Normal bilateral facet joints. Normal central canal and bilateral lateral recesses. Normal bilateral intervertebral neural foramina. L2-3: A 1-2 mm diffuse posterior disc bulge is seen mildly impinging on the exiting nerve roots bilaterally and inducing mild bilateral neuroforaminal narrowing. Normal central canal and bilateral lateral recesses. Mild bilateral facet joint arthropathy is seen. Unchanged since the last study. L3-4: There is a central and right paracentral posterior disc herniation with newly noted large migrating disc material seen extending for 1.7 cm caudally seen impinging on the right L4 nerve and its lateral recess. There is moderate right and mild left neuroforaminal narrowing. Mild bilateral facet joints arthropathy. There is moderate spinal canal stenosis. Normal left lateral recesses. L4-5: A 4 mm posterior disc bulge is seen impinging on the exiting nerve roots bilaterally and inducing moderate bilateral neuroforaminal narrowing. Severe bilateral facet joint arthropathy and associated ligamentum flavum hypertrophy seen inducing severe spinal canal stenosis. Normal lateral recesses. Unchanged since the last study. L5-S1: A 2 mm diffuse posterior disc bulge is seen mildly impinging on the exiting nerve roots bilaterally and inducing mild bilateral neuroforaminal narrowing. Normal central canal and bilateral lateral recesses. Mild bilateral facet joint arthropathy is seen. Unchanged since the last study. Normal visualized sacral ala. No marrow infiltrations. Normal visualized paraspinous soft tissue structures. MRI/Spine Lumbar (Routine) IMPRESSION: Grade I degenerative spondylolisthesis of L4 vertebra. Lumbar spondylosis. T12-L1: Normal endplates. Reduced disc height and hydration. A 2 mm central left paracentral posterior disc protrusion is seen abutting the thecal sac. Normal bilateral facet joints. Normal central canal and bilateral lateral recesses. Normal bilateral intervertebral neural foramina. Unchanged since the last study. L1-2: Normal endplates. Normal disc morphology. Reduced disc height and hydration denoting its degeneration. Normal bilateral facet joints. Normal central canal and bilateral lateral recesses. Normal bilateral intervertebral neural foramina. L2-3: A 1-2 mm diffuse posterior disc bulge is seen mildly impinging on the exiting nerve roots bilaterally and inducing mild bilateral neuroforaminal narrowing. Normal central canal and bilateral lateral recesses. Mild bilateral facet joint arthropathy is seen. Unchanged since the last study. L3-4: There is a central and right paracentral posterior disc herniation with newly noted large migrating disc material seen extending for 1.7 cm caudally seen impinging on the right L4 nerve and its lateral recess. There is moderate right and mild left neuroforaminal narrowing. Mild bilateral facet joints arthropathy. There is moderate spinal canal stenosis. Normal left lateral recesses. L4-5: A 4 mm posterior disc bulge is seen impinging on the exiting nerve roots bilaterally and inducing moderate bilateral neuroforaminal narrowing. Severe bilateral facet joint arthropathy and associated ligamentum flavum hypertrophy seen inducing severe spinal canal stenosis. Normal lateral recesses. Unchanged since the last study. L5-S1: A 2 mm diffuse posterior disc bulge is seen mildly impinging on the exiting nerve roots bilaterally and inducing mild bilateral neuroforaminal narrowing. Normal central canal and bilateral lateral recesses. Mild bilateral facet joint art (more content not included)... [facility] Spine Lumbar (Routine)on Spine Lumbar (Routine) [facility] Imaging Services [address] [place] [address] Spine Lumbar (Routine) MR#: [id number] Acct: [id number] Name: TRACY CARDOSO Rep #: [id number] : 1955 M 69 From: Elliott harkins MD PCP: Dr. Regis Phillips, DO Status: REG CLI Study: Spine Lumbar (Routine) Date of Exam: 02/22/25 Exam# [id number] Ordering Dr: Merly Giraldo PROCEDURE: SPINE LUMBAR (ROUTINE) 02/22/2025 REASON FOR EXAM: PAIN, STENOSIS TECHNIQUE: SPINE LUMBAR (ROUTINE) COMPARISON: The prior radiograph dated 02.15.2025 and MR study dated were reviewed FINDINGS: There is minimal anterolisthesis of L4 vertebra likely secondary to L4-5 facet joint arthropathy. Reduced lumbar lordosis. There is no substantial scoliosis. Normal conus medullaris and the cord roots. Lumbar spine degenerative changes are seen in the form of marginal osteophytes of the opposing vertebral endplates and reduced height and bright T2 signal of the intervertebral discs denoting degeneration. No Modic changes seen. T12-L1: Normal endplates. Reduced disc height and hydration. A 2 mm central left paracentral posterior disc protrusion is seen abutting the thecal sac. Normal bilateral facet joints. Normal central canal and bilateral lateral recesses. Normal bilateral intervertebral neural foramina. Unchanged since the last study. L1-2: Normal endplates. Normal disc morphology. Reduced disc height and hydration denoting its degeneration. Normal bilateral facet joints. Normal central canal and bilateral lateral recesses. Normal bilateral intervertebral neural foramina. L2-3: A 1-2 mm diffuse posterior disc bulge is seen mildly impinging on the exiting nerve roots bilaterally and inducing mild bilateral neuroforaminal narrowing. Normal central canal and bilateral lateral recesses. Mild bilateral facet joint arthropathy is seen. Unchanged since the last study. L3-4: There is a central and right paracentral posterior disc herniation with newly noted large migrating disc material seen extending for 1.7 cm caudally seen impinging on the right L4 nerve and its lateral recess. There is moderate right and mild left neuroforaminal narrowing. Mild bilateral facet joints arthropathy. There is moderate spinal canal stenosis. Normal left lateral recesses. L4-5: A 4 mm posterior disc bulge is seen impinging on the exiting nerve roots bilaterally and inducing moderate bilateral neuroforaminal narrowing. Severe bilateral facet joint arthropathy and associated ligamentum flavum hypertrophy seen inducing severe spinal canal stenosis. Normal lateral recesses. Unchanged since the last study. L5-S1: A 2 mm diffuse posterior disc bulge is seen mildly impinging on the exiting nerve roots bilaterally and inducing mild bilateral neuroforaminal narrowing. Normal central canal and bilateral lateral recesses. Mild bilateral facet joint arthropathy is seen. Unchanged since the last study. Normal visualized sacral ala. No marrow infiltrations. Normal visualized paraspinous soft tissue structures. MRI/Spine Lumbar (Routine) IMPRESSION: Grade I degenerative spondylolisthesis of L4 vertebra. Lumbar spondylosis. T12-L1: Normal endplates. Reduced disc height and hydration. A 2 mm central left paracentral posterior disc protrusion is seen abutting the thecal sac. Normal bilateral facet joints. Normal central canal and bilateral lateral recesses. Normal bilateral intervertebral neural foramina. Unchanged since the last study. L1-2: Normal endplates. Normal disc morphology. Reduced disc height and hydration denoting its degeneration. Normal bilateral facet joints. Normal central canal and bilateral lateral recesses. Normal bilateral intervertebral neural foramina. L2-3: A 1-2 mm diffuse posterior disc bulge is seen mildly impinging on the exiting nerve roots bilaterally and inducing mild bilateral neuroforaminal narrowing. Normal central canal and bilateral lateral recesses. Mild bilateral facet joint arthropathy is seen. Unchanged since the last study. L3-4: There is a central and right paracentral posterior disc herniation with newly noted large migrating disc material seen extending for 1.7 cm caudally seen impinging on the right L4 nerve and its lateral recess. There is moderate right and mild left neuroforaminal narrowing. Mild bilateral facet joints arthropathy. There is moderate spinal canal stenosis. Normal left lateral recesses. L4-5: A 4 mm posterior disc bulge is seen impinging on the exiting nerve roots bilaterally and inducing moderate bilateral neuroforaminal narrowing. Severe bilateral facet joint arthropathy and associated ligamentum flavum hypertrophy seen inducing severe spinal canal stenosis. Normal lateral recesses. Unchanged since the last study. L5-S1: A 2 mm diffuse posterior disc bulge is seen mild (more content not included)... Normal [facility] LIPOAon 02-21-2025 Lipoprotein a [Moles/Vol] 9.4 nmol/L Normal <75.0 [facility] Comment on above: Result Comment: This test was developed and its performance characteristics determined by [employer]. It has not been cleared or approved by the Food and Drug Administration. Note: Values greater than or equal to 75.0 nmol/L may indicate an independent risk factor for CHD, but must be evaluated with caution when applied to non- populations due to the influence of genetic factors on Lp(a) across ethnicities. Performed At: [address] [id number] Lucio Artuhr PhD Ph:[phone] Performed By: #### L IPID, A1C, 760526, [id number] #### [place] [address] A1Con 02-20-2025 Glucose [Mass/Vol] 126 mg/dL Normal [facility] Comment on above: Result Comment: Anayeli mated Average Glucose calculated by equation ((28.7xA1C)-46.7) Estimated average glucose (eAG) is a calculated value from Hemoglobin A1C and is medical detail representative of the average blood glucose level in the last 2-3 month period. Normal range: less than 114 mg/dL Performed By: #### L IPID, A1C, 876490, [id number] #### [place] [id number] [place], [place] [address] HbA1c (Bld) [Mass fraction] 6.0 % Normal 4.3-6.4 [facility] Comment on above: Performed By: #### L IPID, A1C, [id number], [id number] #### [place] [id number] [place], [place] [address] LABORATORYOrdered By: Mohinder Ferreira on 02-20-2025 Cholesterol [Mass/Vol] 133 mg/dL Normal 0 - 200 mg/dL AO ADM SS Comment on above: Interpretive Data: C holesterol Reference Interval: Less than 200 Desirable 200-239 Borderline high risk 240 and above High risk Cholesterol in HDL [Mass/Vol] 46 mg/dL Normal 40 - 60 mg/dL AO ADM SS Cholesterol in LDL [Mass/Vol] 63 mg/dL Normal 0 - 130 mg/dL AO ADM SS Triglyceride [Mass/Vol] 122 mg/dL Normal 0 - 150 mg/dL AO ADM SS Comment on above: Interpretive Data: T riglyceride Reference Interval: Less than 150 Normal 150-199 Borderline high risk 200-499 High risk 500 or higher Very high risk LABORATORYOrdered By: SYSTEM SYSTEM on 02-20-2025 Glucose [Mass/Vol] 126 mg/dL Invalid Interpretation Code AO Chemistry S Comment on above: Interpretive Data: E stimated average glucose (eAG) is a calculated value from Hemoglobin A1C and is medical detail representative of the average blood glucose level in the last 2-3 month period. Normal range: less than 114 mg/dL HbA1c (Bld) [Mass fraction] 6.0 % Normal 4.3 - 6.4 % AO ADM LIPIDon 02-20-2025 Cholesterol [Mass/Vol] 133 mg/dL Normal 0-200 [facility] Comment on above: Result Comment: Chol esterol Reference Interval: Less than 200 Desirable 200-239 Borderline high risk 240 and above High risk Performed By: #### L IPID, A1C, 529014, [id number] #### [place] [address] [place], [place] [address] Cholesterol in HDL [Mass/Vol] 46 mg/dL Normal 40-60 [facility] Comment on above: Performed By: #### L IPID, A1C, 556019, [id number] #### [facility] [address] [place], [place] [address] Cholesterol in LDL [Mass/Vol] 63 mg/dL Normal 0-130 [facility] Comment on above: Performed By: #### L IPID, A1C, 259250, 813245 #### [facility] [address] [place], [place] [address] Triglyceride [Mass/Vol] 122 mg/dL Normal 0-150 [facility] Comment on above: Result Comment: Trig lyceride Reference Interval: Less than 150 Normal 150-199 Borderline high risk 200-499 High risk 500 or higher Very high risk Performed By: #### L IPID, A1C, 826197, [id number] #### [facility] [address] [place], [place] [address] L/S Spine Min 4 Viewson L/S Spine Min 4 Views [facility] Imaging Services [address] [place] [address] L/S Spine Min 4 Views MR#: [id number] Acct: [id number] Name: TRACY CARDOSO Rep #: [id number] : 1955 M 69 From: Isrrael Palomino MD PCP: Dr. Regis Phillips DO Status: DEP AMB Study: L/S Spine Min 4 Views Date of Exam: 02/15/25 Exam# [id number] Ordering Dr: Merly Giraldo PROCEDURE: L/S SPINE MIN 4 VIEWS 02/15/2025 REASON FOR EXAM: BACK PAIN TECHNIQUE: L/S SPINE MIN 4 VIEWS COMPARISON: No FINDINGS: Facet arthritis, L3 through S1. Multilevel mild disc space narrowing, mainly lower thoracic region. Grade 1 anterolisthesis L4. No abnormal motion with flexion/extension. No acute bone or soft tissue pathology. RAD/L/S Spine Min 4 Views IMPRESSION: Thoracic and lumbar spine degeneration. Reading Location: [place] [address] CC: SERVANDO Hunter; Dr. Regis Phillips DO Healthcare Sales Representative: Signed Normal [facility] Orthopedic Visit Reporton Orthopedic Visit Report [facility] [address] [place] [address] OFFICE VISIT Date of Service: 02/15/25 MR#: [id number] Acct: [id number] Name: TRACY CARDOSO Rep #: [id number] : 1955 Provider: SERVANDO Hunter Age/Sex: 69/M [place] [facility] [place]: Signed Intake Vital Signs 12/01/24 11:23 02/05/25 09:18 02/15/25 14:25 Height 5 ft 5.5 in 5 ft 5.5 in 5 ft 5.5 in Weight: 205 lb 197 lb BMI 33.5 32.3 BP 120/73 Blood Pressure Location Lt brachial Position Sitting Respiration 16 Pulse 72 Pulse Source Monitor Intake Visit Reasons: LUMBAR SPINE Chief Complaint: Lumbar spine pain Accompanied by: Self Is patient in pain?: No Allergies Environmental Allergies: Uncoded (seasonal) Allergy (Severe, Verified 02/15/25 14:31) Runny nose Medications ???Medication ???Instructions ???Recorded ???Confirmed ???Type cholecalciferol (vitamin D3) 50 50 mcg PO DAILY supplement 3 02/15/25 History mcg (2,000 unit) capsule ascorbic acid (vitamin C) 500 mg 500 mg PO DAILY #1 TAB 05/09/24 Rx tablet aspirin 81 mg tablet,delayed 81 mg PO BREAKFAST #1 TAB 05/09/24 02/15/25 Rx release clopidogrel 75 mg tablet (Plavix) 75 mg PO DAILY blood thinner #30 05/09/24 02/15/25 Rx tabs tamsulosin 0.4 mg capsule 0.4 mg PO DAILY@1730 #30 caps 04/1702/15/25 Rx carvedilol 25 mg tablet 25 mg PO BID 12/01/24 02/15/25 His tory escitalopram oxalate 5 mg tablet 5 mg PO QDAY 12/01/24 02/15/25 His tory evolocumab 140 mg/mL subcutaneous 140 mg subcut Q2W 12/01/24 History pen injector (Ayaka Retana) ubidecarenone-omega 3-vit E 25 1 cap PO QDAY 12/01/24 02/15/25 Hi story mg-150 (90-60) mg-200 unit capsule (Co A-50-Fbozepn E-Fish Oil) losartan 100 mg tablet 100 mg PO QHS #90 tabs 12/05/24 Rx suvorexant 10 mg tablet (Belsomra) 10 mg PO QHS 12/07/24 02/15/25 H istory cetirizine 10 mg capsule (Zyrtec) 10 mg PO QDAY PRN 02/15/25 History Have you fallen in the past year?: No PFSH Medical History Coronary artery disease CVA (cerebral vascular accident) H/O multiple concussions Encounter for screening for malignant neoplasm of colon History of anxiety History of restless legs syndrome History of Raynaud's syndrome Wenckebach second degree AV block Syncope Nonalcoholic hepatosteatosis Left carotid artery stenosis Hyperlipidemia, mixed Essential (primary) hypertension Kidney stones Arthritis Back pain Injury of head and neck Blackout History of IBS Sleep apnea Asthma Seasonal allergies Tricuspid valve regurgitation Major depressive disorder Insomnia Prediabetes TARIK (obstructive sleep apnea) Surgical History History of PTCA 1 History of bilateral carpal tunnel release Hx of surgical procedure History of esophagogastroduodenoscopy (EGD) Hx of shoulder surgery Hx of knee surgery History of Rosa fundoplication Hx of inguinal hernia repair Hx of colonoscopy Family History Daughter Colon cancer Grandmother Colon cancer Unknown Rectal cancer Father Heart disease of a heart attack in his mid 50s Sister Diabetes Mother , Intracerebral bleed at 19 years of age No problems noted. Other Hypertension Social History household members: family and other details: Lives with his spouse and 2 of his children live with him housing: house number of children: 5 current occupational status: employed current occupation: Works at [employer] in [place] Smoking Status: Never smoker alcohol intake: current Alcohol type: beer details: 1-2 cans a week substance use type: does not use and other details: Used to be a pot smoker HPI LUMBAR SPINE Details: This documentation accurately reflects the service provided and the decisions made by me, SERVANDO Hunter 02/15/25 4092. Part of today???s visit was documented by Micha Lozada MA, acting as scribe. TRACY CARDOSO is a 69 year old M here today for lumbar spine. Patient is having lower back pain. He is having pain going down both legs. Patient states that his left leg is more painful then the right leg. When he stands up his left leg gets really numb. Patient states that he does get numbness and tingling in his feet. This has been going on for years. Patient doesn't really know an exact date. He states that the pain hasn't gotten any better. Patient states that he was working outside and he thinks there was a pinch nerve. This accident happened about 2 weeks ago. He went to (more content not included)... Normal [facility] LABORATORYOrdered By: Nafisa Knowles on 02-02-2025 Appearance (U) Clear (02/02/25 7:44 PM) Normal Clear AO Auto Urine SS Bilirubin Ql (U) Negative (02/02/25 7:44 PM) Normal Negative AO Auto Urine SS Color (U) Yellow (02/02/25 7:44 PM) Normal AO Auto Urine SS Glucose Test strip (U) [Mass/Vol] Negative Normal Negative AO Auto Urine SS Hemoglobin Auto test strip (U) [Mass/Vol] Negative (02/02/25 7:44 PM) Normal Negative AO Auto Urine SS Ketones Ql (U) Negative Normal Negative AO Auto Urine SS UA Leuk Est Negative (02/02/25 7:44 PM) Normal Negative AO Auto Urine SS UA Nitrite Negative (02/02/25 7:44 PM) Normal Negative AO Auto Urine SS UA pH 5.5 (02/02/25 7:44 PM) Normal 5.0 - 8.0 AO Auto Urine SS UA Protein Negative Normal Negative AO Auto Urine SS UA Spec Grav >=1.030 *ABN* (02/02/25 7:44 PM) Invalid Interpretation Code 1.015-1.025 AO Auto Urine SS UA Specimen Type Clean Catch (02/02/25 7:44 PM) Normal AO Auto Urine SS UA Urobilinogen 0.2 E.U./dL Normal 0.2-1.0 AO Auto Urine SS UAon 02-02-2025 Color (U) Yellow Normal [facility] Comment on above: Performed By: #### A 1C, LIPID, TSHR #### [address] [address] Glucose (U) [Mass/Vol] Negative Normal Negative [facility] Comment on above: Performed By: #### A 1C, LIPID, TSHR #### [place] [address] Ketones Ql (U) Negative Normal Negative [facility] Comment on above: Performed By: #### A 1C, LIPID, TSHR #### [place] [address] UA Appear Clear Normal Clear [facility] Comment on above: Performed By: #### A 1C, LIPID, TSHR #### [place] [address] UA Blood Negative Normal Negative [facility] Comment on above: Performed By: #### A 1C, LIPID, TSHR #### [place] [address] UA Leuk Est Negative Normal Negative [facility] Comment on above: Performed By: #### A 1C, LIPID, TSHR #### [place] [address] UA Nitrite Negative Normal Negative [facility] Comment on above: Performed By: #### A 1C, LIPID, TSHR #### [place] [address] UA pH 5.5 Normal 5.0 - 8.0 [facility] [facility] Comment on above: Performed By: #### A 1C, LIPID, TSHR #### [place] [address] UA Protein Negative Normal Negative [facility] Comment on above: Performed By: #### A 1C, LIPID, TSHR #### [place] [address] UA Spec Grav >=1.030 Abnormal 1.015-1.025 [facility] Comment on above: Performed By: #### A 1C, LIPID, TSHR #### [place] [address] UA Specimen Type Clean Catch Normal [facility] Comment on above: Performed By: #### A 1C, LIPID, TSHR #### [address] [address] UA Urobilinogen 0.2 E.U./dL Normal 0.2-1.0 [facility] Comment on above: Performed By: #### A 1C, LIPID, TSHR #### [place] [id number] [place], [place] [address] Urobilinogen (U) [Mass/Vol] Negative Normal Negative [facility] Comment on above: Performed By: #### A 1C, LIPID, TSHR #### [place] [id number] [place], [place] [address] XR HIP 2-3 VIEWS RIGHTon XR HIP 2-3 VIEWS RIGHT ORIGINAL EXAMINATION: XRAY VIEWS OF THE RIGHT HIP 02/02/2025 6:35 pm COMPARISON: None. HISTORY: ORDERING SYSTEM PROVIDED HISTORY: Reason for Exam: Chronic hip pain that became worse today FINDINGS: No fracture or dislocation. Small globular calcification projects over the greater trochanter superiorly which could reflect sequelae of tendinopathy/calcific tendinitis. IMPRESSION: Small globular calcification projects over the greater trochanter superiorly which could reflect sequelae of tendinopathy/calcific tendinitis. Interpreted by: Hector Celeste Preliminary Report By: Hector Celeste Electronically signed By Hector Celeste Dictated Date: 02/02/2025 6:38:01 PM Prelim Date: 02/02/2025 6:38:50 PM Sign Date: 02/02/2025 6:38:50 PM Ordering Provider: LAURI Blackburn [facility] XR PELVIS 1 OR 2 VIEWSon XR PELVIS 1 OR 2 VIEWS ORIGINAL EXAMINATION: ONE XRAY VIEW OF THE PELVIS 02/02/2025 6:38 pm COMPARISON: None. HISTORY: ORDERING SYSTEM PROVIDED HISTORY: Reason for Exam: pain FINDINGS: No fracture or dislocation. Pelvic and trochanter enthesopathic changes. IMPRESSION: No acute osseous abnormality by radiograph. Interpreted by: Hector Celeste Preliminary Report By: Hector Celeste Electronically signed By Hector Celeste Dictated Date: 02/02/2025 6:41:33 PM Prelim Date: 02/02/2025 6:42:49 PM Sign Date: 02/02/2025 6:42:49 PM Ordering Provider: ANGEL URENA [facility] XR SPINE LUMBAR AP/LATon XR SPINE LUMBAR AP/LAT ORIGINAL EXAMINATION: 2 XRAY VIEWS OF THE LUMBAR SPINE 02/02/2025 6:41 pm COMPARISON: Radiograph of the lumbar spine August 18, 2014 HISTORY: ORDERING SYSTEM PROVIDED HISTORY: Reason for Exam: pain FINDINGS: Vertebral body heights and alignment are unchanged. Lower lumbar spine predominant degenerative change. IMPRESSION: No acute osseous abnormality by radiograph. Interpreted by: Hector Celeste Preliminary Report By: Hector Celeste Electronically signed By Hector Celeste Dictated Date: 02/02/2025 6:45:04 PM Prelim Date: 02/02/2025 6:46:20 PM Sign Date: 02/02/2025 6:46:20 PM Ordering Provider: ANGEL URENA [facility] 37on 01-25-2025 37 Amplitude reduced Belsomra was not effective Trial of Ambien 5mg nightly-it will call and update nv Normal [facility] Office Visiton 01-25-2025 Follow-up visit [id number] Pilar Cardoso 1955 M Date Provider Department Center 01/25/2025 [id number]-HHCQARFASYESSENIA AYALA [facility] None Family History Problem Relation Age of Onset Alcohol abuse Father Heart disease Father Arthritis Maternal Grandmother Cancer Maternal Grandmother Cancer Other Family Status - Relation Status Age at Father Alive Maternal Grandmother Alive Other Alive Level of Service:75258 ME OFFICE/OUTPATIENT ESTABLISHED MOD MDM 30 MIN Reason for Visit and Comments: Follow-up [264070] - inspire Sleep Apnea [348] Normal [facility] Progress Noteon 01-25-2025 Progress Note [facility] [address] [place] [address] [facility] [address] Dept: [phone] Dept Loc: [phone] Visit type: Established Patient Reason for Visit: Follow-up (inspire) and Sleep Apnea Assessment and Plan 1. Obstructive sleep apnea - zolpidem (Ambien) 5 MG tablet; Take 1 tablet (5 mg) by mouth Nightly as needed for sleep., Starting Terrie 01/25/2025, Until Wed01/25/2026 at 2359, Normal 2. Insomnia, unspecified type Subjective HPI: Hx of TARIK. Followed with Dr. Elias. Unable to tolerate masks Inspire Device inserted 10/07/[address] Steffen Layne tried for sleep- Trazodone, Mirtazapine, Amitriptyline, Lunesta, Seroquel, Ativan, Ambien Device activated 11/30/23 Start Belsomra 10mg Average of 20 hrs/week He states he is up all night Using the pause a lot He reports the Belsomra is like taking ASA The device is causing neck pain REVIEW OF SYSTEMS: Review of Systems Constitutional: Negative. HENT: Negative. Eyes: Negative. Respiratory: Negative. Cardiovascular: Negative. Gastrointestinal: Negative. Endocrine: Negative. Genitourinary: Negative. Musculoskeletal: Negative. Skin: Negative. Allergic/Immunologic: Negative. Neurological: Negative. Hematological: Negative. Psychiatric/Behavioral: Positive for sleep disturbance. Allergies[1] Current Medications[2] Medical History[3] Social History Tobacco Use Smoking status: Never Smokeless tobacco: Never Substance Use Topics Alcohol use: Yes Alcohol/week: 1.0 - 2.0 standard drink of alcohol Types: 1 - 2 Cans of beer per week Comment: Very occasional; go weeks and sometimes months without Surgical History[4] Family History[5] Objective Vitals: BP 129/80 (BP Location: Right arm, Patient Position: Sitting, BP Cuff Size: Adult) Pulse 69 Ht 5' 5.5 (1.664 m) Wt 202 lb 9.6 oz (91.9 kg) BMI 33.20 kg/m? General Appearance: Patient is in no apparent distress. Head is normocephalic, atraumatic Cardiovascular: Regular rate and rhythm. No heart murmurs. No carotid bruit Neurologic: Mentation: Alert and oriented x 3 to person, place and time. Speech and Language: Speech and language normal Concentration and Attention: Concentration normal Memory: Memory normal Fund of Knowledge: Fund of knowledge normal Cranial Nerves: II, III, IV, V, , VII, VIII, IX, X, XI, XII examined and were intact. Motor: Strength: Strength 5 out of 5 with normal tone Alternating Movements: Normal Cogwheel Rigidity: None Tone: Tone is normal Tremor / Involuntary Movements: None Deep Tendon Reflexes: 1 out of 4 symmetrical in all four limbs. Sensory: Normal sensation upper and lower extremities Coordination: Normal coordination upper and lower extremities Gait and Station: Station is normal. Gait is normal Hypoglossal Nerve Stimulation Activation Old Setting New Setting Comment Sensation Threshold V V Function Threshold V V Tongue Protrusion Set Amplitude V 1.0 V Patient Range 0.8 V to 1.5 V 0.8 V to 1.5 V Pulse Width 120 ?S 120 ?S Rate 33 Hz 33 Hz Electrode Configuration +-+ +-+ Start Delay 75 Min 75 Min Therapy Duration 9 Hours 9 Hours Pause Time 30 Min 30 Min Data Reviewed and Summarized DIAGNOSTIC TESTING CBC: No results found for: WBC, RBC, HGB, HCT, MCV, MCH, MCHC, RDW, PLT, MPV CMP: No results found for: NA, K, CL, CO2, BUN, CREATININE, AGRATIO, LABGLOM, GLUCOSE, GLU, PROT, CALCIUM, BILITOT, ALKPHOS, AST, ALT BMP: No results found for: NA, K, CL, CO2, BUN, CREATININE, CALCIUM, LABGLOM, GLUCOSE, GLU PT/INR: No results found for: PROTIME, INR PTT: No results found for: APTT, PTT[APTT} FLP: No results found for: CHLPL, TRIG, HDL, LDLCALC, LDLDIRECT TSH: No results found for: TSH VITAMIN B12: No results found for: BHTRYATA38 No results found for: PHENYTOIN, PHENOBARB, VALPROATE, CBMZ No components found for: TOPIRA @RESULTINGLABINFO@ No results found for: LEVETIRACETA, FERRITIN, CRP, AISHWARYA, ANCA No results found for: SINAN, IMMUNOGLOBUL, OLIGOBANDS No results found for: WJD34PG, HEPCAB No results found for: CRP, ANATITER, ANCA FERRITIN: No results found for: FERRITIN ---- ECG 12 lead Sinus rhythm Borderline prolonged ME interval Electronically Signed On 10-01-2023 19:15:46 EST by Cat Bennett IMPRESSION and PLAN: Diagnosis Plan 1. Obstructive sleep apnea zolpidem (Ambien) 5 MG tablet 2. 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 I assume responsibility for the patient's ongoing medical care of this conditi (more content not included)... Normal [facility] Anion gap in Serum or Plasma Ordered By: Eri Giradlo on 12-08-2024 Anion gap [Moles/Vol] 13 mmol/L 12-28 [facility] BUN/creatinine ratioOrdered By: Eri Giraldo on 12-08-2024 Urea nitrogen/Creatinine [Mass ratio] 20.3 mg/mg High 06-04 [facility] Basic Metabolic Profile (BMP )on 12-08-2024 BUN/CRE 20.3 RATIO High 06-04 [facility] Comment on above: Performed By: #### L 500.2500 #### [facility] [address] [place], [address] Calcium [Mass/Vol] 9.7 mg/dL Normal 7.6-11.0 [facility] Comment on above: Performed By: #### L 500.2500 #### [facility] [address] [place], [address] Chloride [Moles/Vol] 103 mmol/L Normal 98-108 [facility] Comment on above: Performed By: #### L 500.2500 #### [facility] [address] [place], [address] CO2 [Moles/Vol] 23.9 mmol/L Normal 21.0-32.0 [facility] Comment on above: Performed By: #### L 500.2500 #### [facility] [address] [place], [address] Creatinine [Mass/Vol] 1.28 mg/dL High 0.70-1.20 [facility] Comment on above: Performed By: #### L 500.2500 #### [facility] [address] [place], [address] GAP 13 Normal - [facility] Comment on above: Performed By: #### L 500.2500 #### [facility] [address] [place], [address] GFR/1.73 sq M.predicted among non-blacks MDRD (S/P/Bld) [Vol rate/Area] 61 mL/min/{1.73_m2} Normal >60 [facility] Comment on above: Result Comment: mL/m in/1.73m2 CKD-EPI Creatinine Equation (2020) Performed By: #### L 500.2500 #### [facility] [address] [place], [address] Glucose [Mass/Vol] 134 mg/dL High 70-99 [facility] Comment on above: Performed By: #### L 500.2500 #### [facility] [address] [place], [address] Potassium [Moles/Vol] 3.9 mmol/L Normal 3.3-5.1 [facility] Comment on above: Performed By: #### L 500.2500 #### [facility] [address] [place], [address] Sodium [Moles/Vol] 140 mmol/L Normal 133-145 [facility] Comment on above: Performed By: #### L 500.2500 #### [facility] [address] [place], [address] Urea nitrogen [Mass/Vol] 26 mg/dL High 4-19 [facility] Comment on above: Performed By: #### L 500.2500 #### [facility] [address] [place], [address] Carbon dioxide, total [Moles /volume] in Central venous bloodOrdered By: Eri Giraldo on 12-08-2024 CO2 [Moles/Vol] 23.9 mmol/L 21.0-32.0 [facility] Chloride assayOrdered By: Sunni Giraldo on 12-08-2024 Chloride [Moles/Vol] 103 mmol/L 98-108 [facility] Glomerular filtration rate ( GFR) estimation/1.73 sq m using serum, plasma, or whole bOrdered By: Eri Giraldo on 12-08-2024 GFR/1.73 sq M.predicted among non-blacks MDRD (S/P/Bld) [Vol rate/Area] 61 mL/min/{1.73_m2} >60 [facility] Comment on above: mL/min/1.73m2 CKD-EP I Creatinine Equation (2020) Potassium measurement (mass/ volume)Ordered By: Eri Giraldo on 12-08-2024 Potassium (Unsp spec) [Mass/Vol] 3.9 mmol/L 3.3-5.1 [facility] Serum creatinine measurement (mass/volume)Ordered By: Eri Giraldo on 12-08-2024 Creatinine [Mass/Vol] 1.28 mg/dL High 0.70-1.20 [facility] Serum glucose measurement (m ass/volume)Ordered By: Eri Giraldo on 12-08-2024 Glucose [Mass/Vol] 134 mg/dL High 70-99 [facility] Serum or plasma calcium gurinder urement (mass/volume)Ordered By: Eri Giraldo on 12-08-2024 Calcium [Mass/Vol] 9.7 mg/dL 7.6-11.0 [facility] Serum or plasma urea nitroge n measurement (mass/volume)Ordered By: Eri Giraldo on 12-08-2024 Urea nitrogen [Mass/Vol] 26 mg/dL High 4-19 [facility] Sodium levelOrdered By: Raj Giraldo on 12-08-2024 Sodium [Moles/Vol] 140 mmol/L 133-145 [facility] Office Visiton 12-04-2024 Follow-up visit [id number] Pilar Cardoso 1955 M Date Provider Department Center 12/04/2024 [id number]-DNTZRLATVYESSENIA AYALA [facility] None No family history on file Level of Service:12303 ME OFFICE/OUTPATIENT ESTABLISHED MOD MDM 30 MIN Reason for Visit and Comments: Follow-up [102339] - Inspire Normal [facility] Progress Noteon 12-04-2024 Progress Note [facility] [address] [place] [address] [facility] [address] Dept: [phone] Dept Loc: [phone] Visit type: Established Patient Reason for Visit: Follow-up (Inspire) Assessment and Plan 1. Obstructive sleep apnea 2. Insomnia, unspecified type - suvorexant (Belsomra) 10 MG tablet; Take 1 tablet (10 mg) by mouth Nightly as needed for sleep., Starting 12/04/2024, Normal Subjective HPI: Hx of TARIK. Followed with Dr. Elias. Unable to tolerate masks Inspire Device inserted 10/07/[address] Steffen Layne tried for sleep- Trazodone, Mirtazapine, Amitriptyline, Lunesta, Seroquel, Ativan Device activated 11/30/23 He reports his sleep has been good In bed 10:30-11pm and wake time varies but most often 6am He does not use Inspire for naps due to delayed start time His BP is waking him during the night. SBP is running in the 200's at times He continues to have difficulty with falling asleep and often has to pause the device REVIEW OF SYSTEMS: Review of Systems Constitutional: Negative. HENT: Negative. Eyes: Positive for visual disturbance. Respiratory: Negative. Cardiovascular: Negative. Gastrointestinal: Negative. Endocrine: Negative. Genitourinary: Negative. Musculoskeletal: Negative. Skin: Negative. Allergic/Immunologic: Negative. Neurological: Negative. Hematological: Negative. Psychiatric/Behavioral: Positive for sleep disturbance. Allergies Allergen Reactions Pollen Extract Other Seasonal allergies. Current Outpatient Medications: Ascorbic Acid (vitamin C) 1000 MG tablet, Take 1,000 mg by mouth every morning (before breakfast)., Disp: , Rfl: aspirin 81 MG EC tablet, Take 81 mg by mouth daily., Disp: , Rfl: B Tvlgoby-Vedmyh-JY (B COMPLEX 100 TR PO), Take by mouth every morning (before breakfast)., Disp: , Rfl: cetirizine (ZyrTEC) 10 MG tablet, Take by mouth every morning (before breakfast)., Disp: , Rfl: cholecalciferol (Vitamin D-3) 125 MCG (5000 UT) capsule, Take 5,000 Units by mouth daily., Disp: , Rfl: escitalopram (Lexapro) 5 MG tablet, Take 1 tablet (5 mg) by mouth daily., Disp: 30 tablet, Rfl: 3 Magnesium Ascorbate powder, every morning (before breakfast)., Disp: , Rfl: [place]-3 Fatty Acids (FISH OIL PO), Take by mouth daily., Disp: , Rfl: Plavix 75 MG tablet, Take 75 mg by mouth daily., Disp: , Rfl: psyllium (Metamucil) 0.36 g capsule, daily., Disp: , Rfl: Repatha SureClick 140 MG/ML injection, Inject 140 mg under the skin every 14 (fourteen) days., Disp: , Rfl: tamsulosin (Flomax) 0.4 MG 24 hr capsule, Take 0.4 mg by mouth daily., Disp: , Rfl: zinc gluconate 50 MG tablet, Take 100 mg by mouth daily., Disp: , Rfl: suvorexant (Belsomra) 10 MG tablet, Take 1 tablet (10 mg) by mouth Nightly as needed for sleep., Disp: 30 tablet, Rfl: 0 Past Medical History: Diagnosis Date Anxiety not any more Arthritis Asthma Brain concussion numerous; skull fracture w/subdural hematoma 1976 Cluster headache occasionally, not frequent Colon polyp CTS (carpal tunnel syndrome) 20 years--surgery 03/06 Depression in the past Head injury 1966 Hyperlipidemia Hypertension Insomnia adulthood Irritable bowel syndrome Numbness left thigh, right foot/toe Restless leg syndrome years Sleep apnea 20-30 years DO NOT WEAR CPAP Syncope only when I cough Social History Tobacco Use Smoking status: Never Smokeless tobacco: Never Substance Use Topics Alcohol use: Yes Alcohol/week: 1.0 - 2.0 standard drink of alcohol Types: 1 - 2 Cans of beer per week Comment: Very occasional; go weeks and sometimes months without Past Surgical History: Procedure Laterality Date BICEPS TENDON REPAIR Left CARPAL TUNNEL RELEASE Right COLONOSCOPY ELBOW SURGERY HERNIA REPAIR Bilateral inguinal KNEE ARTHROSCOPY W/ MENISCECTOMY Bilateral ROSA FUNDOPLICATION OTHER SURGICAL HISTORY N/A 02/11/2023 Evaluation of sleep-disordered breathing exam - Dr. Bourne, [facility] SHOULDER ARTHROSCOPY Left TEARS SURGICAL IMPLANT (HISTORICAL) 10/07/2023 INSPIRE - hypoglossal nerve neurostimulator and generator and breathing snesor implant - DR BOURNE TONSILLECTOMY AND ADENOIDECTOMY (HISTORICAL) UPPER GASTROINTESTINAL ENDOSCOPY No family history on file. Objective Vitals: BP 134/78 (BP Location: Right arm, Patient Position: Sitting, BP Cuff Size: Adult) Pulse 60 Ht 5' 5.5 (1.664 m) Wt 208 lb 9.6 oz (94.6 kg) BMI 34.18 kg/m? General Appearance: Patient is in no apparent distress. Head is normocephalic, atraumatic Cardiovascular: Regular rate and rhythm. No heart murmurs. No carotid bruit Neurologic: Mentation: Alert and oriented x 3 to person, place and time. Speech and Language: Speech and language normal Concentration and Attention: Concentration normal Memory: Memory normal Fund of Knowledge: Fund of knowledge normal Cranial Nerves: II, III, (more content not included)... Normal [facility] Cardiology Visit Reporton Cardiology Visit Report [facility] [place] [address] OFFICE VISIT Date of Service: 12/01/24 MR#: [id number] Acct: [id number] Name: TRACY CARDOSO Rep #: [id number] : 1955 Provider: Dr. Tano Goldsmith MD Age/Sex: 69/M [place] [facility] [place] Status: Signed HPI HPI History of Present Illness Details: 69-year-old man who had previously seen us with Sherry candelaria and was asked to follow-up but unfortunately did not. He apparently underwent a coronary calcium score which I think was abnormal and then underwent a left heart catheterization in April 2024 it demonstrated high- grade lesion in the left anterior descending artery of 80% in the proximal LAD he underwent angioplasty and stenting after an FFR was noted to be abnormal. This was successful but unfortunately subsequently he did suffer a cerebrovascular accident. He says that he has not quite been the same since he has blood pressures have been going up and down he has had no chest pain no palpitations but some shortness of breath with activity. It is not clear but from what he describes it sounds like he may have had a PFO. He has been compliant with his medications. He denies any chest pain or paroxysmal nocturnal dyspnea. His physical exam is unremarkable. Intake Vital Signs 05/05/24 11:32 12/01/24 11:23 Height 5 ft 5.5 in 5 ft 5.5 in Weight: 205 lb BMI 33.5 BP 120/73 Blood Pressure Location Lt brachial Position Sitting Respiration 16 Pulse 72 Pulse Source Monitor Intake Visit Reasons: OVERDUE FOR OV/LAST SEEN 05/08 Literacy Education Professor Required: No Accompanied by: Self Is patient in pain?: No Allergies No Known Allergies Allergy (Unverified 12/01/24 11:26) Medications ???Medication ???Instructions ???Recorded ???Confirmed ???Type cholecalciferol (vitamin D3) 50 50 mcg PO DAILY supplement 3 12/01/24 History mcg (2,000 unit) capsule ascorbic acid (vitamin C) 500 mg 500 mg PO DAILY #1 TAB 05/09/24 Rx tablet aspirin 81 mg tablet,delayed 81 mg PO BREAKFAST #1 TAB 05/09/24 12/01/24 Rx release clopidogrel 75 mg tablet (Plavix) 75 mg PO DAILY blood thinner #30 05/09/24 12/01/24 Rx tabs tamsulosin 0.4 mg capsule 0.4 mg PO DAILY@1730 #30 caps 04/1712/01/24 Rx carvedilol 25 mg tablet 25 mg PO BID 12/01/24 12/01/24 His tory escitalopram oxalate 5 mg tablet 5 mg PO QDAY 12/01/24 12/01/24 His tory evolocumab 140 mg/mL subcutaneous 140 mg subcut Q2W 12/01/24 History pen injector (Ayaka Retana) losartan 100 mg tablet 100 mg PO ONCE #90 tabs 12/01/24 0 12/01/24 Rx mirtazapine 45 mg tablet 45 mg PO QHS 12/01/24 12/01/24 His tory ubidecarenone-omega 3-vit E 25 1 cap PO QDAY 12/01/24 12/01/24 Hi story mg-150 (90-60) mg-200 unit capsule (Co K-84-Fhoudip E-Fish Oil) Have you fallen in the past year?: Yes [facility] Medical History (Updated 12/01/24 @ 12:[address] Tano Goldsmith MD) Coronary artery disease CVA (cerebral vascular accident) H/O multiple concussions Encounter for screening for malignant neoplasm of colon History of anxiety History of restless legs syndrome History of Raynaud's syndrome Wenckebach second degree AV block Syncope Nonalcoholic hepatosteatosis Left carotid artery stenosis Hyperlipidemia, mixed Essential (primary) hypertension Kidney stones Arthritis Back pain Injury of head and neck Blackout History of IBS Sleep apnea Asthma Seasonal allergies Tricuspid valve regurgitation Major depressive disorder Insomnia Prediabetes TARIK (obstructive sleep apnea) Surgical History History of PTCA 1 History of bilateral carpal tunnel release Hx of surgical procedure History of esophagogastroduodenoscopy (EGD) Hx of shoulder surgery Hx of knee surgery History of Rosa fundoplication Hx of inguinal hernia repair Hx of colonoscopy Family History Daughter Colon cancer Grandmother Colon cancer Unknown Rectal cancer Father Heart disease of a heart attack in his mid 50s Sister Diabetes Mother , Intracerebral bleed at 19 years of age No problems noted. Other Hypertension Social History household members: family and other details: Lives with his spouse and 2 of his children live with him housing: house number of children: 5 current occupational status: employed current occupation: Works at [employer] in [place] Smoking Status: Never smoker alcohol intake: current Alcohol type: beer details: 1-2 cans a week substance use type: does not use and other details: Used to be a pot smoker ROS Const Const: Positive (more content not included)... Normal [facility] CATPon 11-16-2024 Dopamine Lvl <30 Normal 0-48 [facility] Comment on above: Result Comment: Ef fective November 27, 2024 Dopamine methodology will be changing to Liquid Chromatography Tandem Mass Spectrometry (LC-MS/MS). The reference interval will be changing to: 0.0 - 36.7 pg/mL Performed At: [address] [id number] Lucho Gonzalez MD Ph:[phone] Performed By: #### A BANDAR Saunders, TSHR #### [address] [address] Epinephrine Lvl 45 pg/mL Normal 0-62 [facility] Comment on above: Result Comment: Ef fective November 27, 2024 Epinephrine methodology will be changing to Liquid Chromatography Tandem Mass Spectrometry (LC-MS/MS). The reference interval will be changing to: 0.0 - 55.4 pg/mL Performed By: #### A Chip LIPID, TSHR #### [address] [address] Norepineph Lvl 233 pg/mL Normal 0-874 [facility] Comment on above: Result Comment: Ef fective November 27, 2024 Norepinephrine methodology will be changing to Liquid Chromatography Tandem Mass Spectrometry (LC-MS/MS). The reference interval will be changing to: 115 - 524 pg/mL Performed By: #### A BANDAR Saunders TSHR #### [place] [id number] ALDOSon 11-13-2024 Aldosterone. 2.7 ng/dL Normal 0.0-30.0 [facility] Comment on above: Result Comment: This test was developed and its performance characteristics determined by [employer]. It has not been cleared or approved by the Food and Drug Administration. Performed At: [address] [id number] Lucho Gonzalez MD Ph:[phone] Performed By: #### A BANDAR Saunders TSHR #### [address] [address] RENINon 11-13-2024 Renin Activity 0.301 ng/mL/hr Normal 0.167-5.380 [facility] Comment on above: Result Comment: This test was developed and its performance characteristics determined by [facility] It has not been cleared or approved by the Food and Drug Administration. Performed At: [address] [id number] Lucho Gonzalez MD Ph:[phone] Performed By: #### A 1C, LIPID, TSHR #### [address] [address] FT4on 11-08-2024 Free T4 [Mass/Vol] 1.11 ng/dL Normal 0.89-1.76 [facility] Comment on above: Result Comment: No te - New Reference Range in effect 20 Performed By: #### A 1C, LIPID, TSHR #### [address] [address] .Auto Diffon 11-07-2024 Basophil, Absolute 0.0 10 3/mcL Normal 0.0-0.2 [facility] Comment on above: Performed By: #### F T4 #### [place] [address] #### FT3, ADIFF, BMP, ANEU, 291010, TSH, URIC, GFR, [id number], 576811, CBC #### [address] [address] Basophils/100 WBC (Bld) 0.5 % Normal 0.0-2.5 [facility] Comment on above: Performed By: #### F T4 #### [place] [address] #### FT3, ADIFF, BMP, ANEU, 611368, TSH, URIC, GFR, 515409, 582542, CBC #### [address] [address] Eosinophil, Absolute 0.1 10 3/mcL Normal 0.0-0.7 [facility] Comment on above: Performed By: #### F T4 #### [place] [address] #### FT3, ADIFF, BMP, ANEU, 040549, TSH, URIC, GFR, 421556, 318921, CBC #### [address] [address] Eosinophils/100 WBC (Bld) 2.1 % Normal 0.0-7.0 [facility] Comment on above: Performed By: #### F T4 #### [place] [address] #### FT3, ADIFF, BMP, ANEU, 487373, TSH, URIC, GFR, 097753, 692259, CBC #### [address] [address] Lymphocyte, Absolute 1.7 10 3/mcL Normal 0.9-4.3 [facility] Comment on above: Performed By: #### F T4 #### [place] [address] #### FT3, ADIFF, BMP, ANEU, 958081, TSH, URIC, GFR, 757754, 007859, CBC #### [address] [address] Lymphocytes/100 WBC (Bld) 27.8 % Normal 20.0-40.0 [facility] Comment on above: Performed By: #### F T4 #### [place] [address] #### FT3, ADIFF, BMP, ANEU, 039450, TSH, URIC, GFR, 197928, 589836, CBC #### [address] [address] Monocyte, Absolute 0.5 10 3/mcL Normal 0.1-1.4 [facility] Comment on above: Performed By: #### F T4 #### [place] [address] #### FT3, ADIFF, BMP, ANEU, 302727, TSH, URIC, GFR, 040174, 726077, CBC #### [address] [address] Monocytes/100 WBC (Bld) 8.8 % Normal 2.0-13.0 [facility] Comment on above: Performed By: #### F T4 #### [place] [address] #### FT3, ADIFF, BMP, ANEU, 109224, TSH, URIC, GFR, 012179, 954306, CBC #### [address] [address] Neutrophils/100 WBC (Bld) 60.8 % Normal 50.0-75.0 [facility] Comment on above: Performed By: #### F T4 #### [address] [address] #### FT3, ADIFF, BMP, ANEU, 085533, TSH, URIC, GFR, 792841, 439227, CBC #### [address] [address] .GFRon 11-07-2024 Estimated Glomerular Filtration Rate 74 ml/min/1.73sqm Normal [facility] Comment on above: Result Comment: Stages of Chronic Kidney Disease (CKD) Stage Description eGFR(ml/min/1.73 sq.m.) CKD 1 Normal kidney function or >=90 normal kindney function with possible kidney damage (ex. Proteinuria) CKD 2 Kidney damage with mild loss 60-89 of kidney function CKD 3a Mild to moderate loss of kidney 45-59 function CKD 3b Moderate to severe loss of 30-44 of kindey function CKD 4 Severe loss of kidney function 15-29 CKD 5 Kidney failure <15 Note: (go live 2024) the eGFR calculation was updated to the 2020 CKD-EPI creatinine equation without a race factor to calculate the eGFR results. Performed By: #### A 1C, LIPID, TSHR #### [address] [address] .NEUABSon 11-07-2024 Neutrophil, Absolute 3.6 10 3/mcL Normal 2.3-8.1 [facility] Comment on above: Performed By: #### F T4 #### [address] [address] #### FT3, ADIFF, BMP, ANEU, 790497, TSH, URIC, GFR, 156807, 146825, CBC #### [address] [address] BMPon 11-07-2024 BUN/Creatinine Ratio 19 ratio Normal 7-27 [facility] Comment on above: Performed By: #### A 1C, LIPID, TSHR #### [place] [address] Calcium [Mass/Vol] 9.0 mg/dL Normal 8.4-10.2 [facility] Comment on above: Performed By: #### A Chip, LIPID, TSHR #### [address] [address] Chloride [Moles/Vol] 107 mmol/L Normal 98-107 [facility] Comment on above: Performed By: #### A Chip, LIPID, TSHR #### [address] [address] CO2 [Moles/Vol] 28 mmol/L Normal 23-31 [facility] Comment on above: Performed By: #### A Chip, LIPID, TSHR #### [address] [address] Creatinine [Mass/Vol] 1.10 mg/dL Normal 0.70-1.30 [facility] Comment on above: Result Comment: Test ing performed on Siemens Dimension EXL analyzer using a modified kinetic Shirlene technique. Performed By: #### A Chip, LIPID, TSHR #### [address] [address] Electrolyte Balance 7.0 mEq/L Normal 4.0-15.0 [facility] Comment on above: Performed By: #### A Chip, LIPID, TSHR #### [address] [address] Glucose [Mass/Vol] 108 mg/dL Normal 80-115 [facility] Comment on above: Performed By: #### A 1C, LIPID, TSHR #### [address] [address] Potassium [Moles/Vol] 4.1 mmol/L Normal 3.5-5.1 [facility] Comment on above: Performed By: #### A 1C, LIPID, TSHR #### [address] [address] Sodium [Moles/Vol] 142 mmol/L Normal 136-145 [facility] Comment on above: Performed By: #### A 1C, LIPID, TSHR #### [address] [address] Urea nitrogen [Mass/Vol] 21 mg/dL High 7-18 [facility] Comment on above: Performed By: #### A 1C, LIPID, TSHR #### [address] [address] CBCon 11-07-2024 Erythrocyte distribution width (RBC) [Ratio] 14.7 % Normal 11.5-15.5 [facility] Comment on above: Performed By: #### F T4 #### [place] [address] #### FT3, ADIFF, BMP, ANEU, 202766, TSH, URIC, GFR, 507969, 141892, CBC #### [address] [address] Hematocrit (Bld) [Volume fraction] 42.0 % Normal 40.0-52.0 [facility] Comment on above: Performed By: #### F T4 #### [place] [address] #### FT3, ADIFF, BMP, ANEU, 370687, TSH, URIC, GFR, 349376, 077231, CBC #### [address] [address] Hgb 14.1 G/dL Normal 13.0-17.5 [facility] Comment on above: Performed By: #### F T4 #### [place] [address] #### FT3, ADIFF, BMP, ANEU, 270078, TSH, URIC, GFR, 437495, 276090, CBC #### [address] [address] MCH (RBC) [Entitic mass] 30.5 pg Normal 27.0-33.0 [facility] Comment on above: Performed By: #### F T4 #### [place] [address] #### FT3, ADIFF, BMP, ANEU, 491547, TSH, URIC, GFR, 087306, 753258, CBC #### [address] [address] MCHC 33.7 G/dL Normal 32.0-36.0 [facility] Comment on above: Performed By: #### F T4 #### [place] [address] #### FT3, ADIFF, BMP, ANEU, 266088, TSH, URIC, GFR, 620918, 026277, CBC #### [address] [address] MCV (RBC) [Entitic vol] 90.6 fL Normal 81.0-100.0 [facility] Comment on above: Performed By: #### F T4 #### [place] [address] #### FT3, ADIFF, BMP, ANEU, 797959, TSH, URIC, GFR, 531930, 790272, CBC #### [address] [address] Platelet 260 10 3/mcL Normal 150-450 [facility] Comment on above: Performed By: #### F T4 #### [place] [address] #### FT3, ADIFF, BMP, ANEU, 831086, TSH, URIC, GFR, 602027, 034645, CBC #### [address] [address] Platelet mean volume (Bld) [Entitic vol] 7.2 fL Normal 6.4-10.5 [facility] Comment on above: Performed By: #### F T4 #### [place] [address] #### FT3, ADIFF, BMP, ANEU, 478467, TSH, URIC, GFR, 265141, 092566, CBC #### [address] [address] RBC 4.63 10 6/mcL Normal 4.50-6.00 [facility] Comment on above: Performed By: #### F T4 #### [address] [address] #### FT3, ADIFF, BMP, ANEU, 453004, TSH, URIC, GFR, 723497, 841965, CBC #### [address] [address] WBC 6.0 10 3/mcL Normal 4.5-10.8 [facility] Comment on above: Performed By: #### F T4 #### [address] [address] #### FT3, ADIFF, BMP, ANEU, 078043, TSH, URIC, GFR, 671217, 459542, CBC #### [address] [address] FT3on 11-07-2024 Free T3 [Mass/Vol] 2.63 pg/mL Normal 2.30-4.00 [facility] Comment on above: Performed By: #### A 1C, LIPID, TSHR #### [address] [address] TSHon 11-07-2024 TSH Qn 1.82 m[IU]/L Normal 0.36-3.74 [facility] Comment on above: Performed By: #### A 1C, LIPID, TSHR #### [address] [address] URICon 11-07-2024 Uric Acid Lvl 5.0 mg/dL Normal 3.5-7.2 [facility] Comment on above: Performed By: #### A 1C, LIPID, TSHR #### [address] [address] 36on 10-10-2024 36 Spoke with patient o n the phone regarding test results. All questions answered. He is following with Cardiology [facility] 36 Name of caller: Tracy Contact phone number: [phone] Relationship to Patient: patient Provider: KEON Ayala Practice: [facility] [place] Chief Complaint/Reason for Call: Tracy states that he is returning a call to [place] to discuss results of TTE, KARUNA and Carotids and would like to receive a call back as soon as possible. CAC attempted back line and reached out in teams, staff member was not available. Please advise. Best time of day caller can be reached: Any Patient advised that office/PCP has 24-48 business hours to return their call: No Normal [facility] 36on 10-06-2024 36 LMOM for pt to call back to discuss results of TTE, KARUNA and Carotids [facility] 37on 10-04-2024 37 No adjustments made to Inspire Device Continue Aspirin and Plavix daily Need to review [place] records-patient states he had TTE and KARUNA Start Lexapro 5mg He declined Speech Therapy for cognitive issues [facility] Office Visiton 10-04-2024 Follow-up visit [id number] Pilar Cardoso 1955 M Date Provider Department Center 10/04/2024 [id number] AYALA [facility] None No family history on file Level of Service:39734 ME OFFICE/OUTPATIENT ESTABLISHED MOD [facility] 30 MIN Reason for Visit and Comments: Follow-up [372100] - Inspire [facility] Progress Noteon 10-04-2024 Progress Note Visit type: Establis jami Patient Reason for Visit: Follow-up (Inspire) Assessment and Plan 1. Obstructive sleep apnea 2. Insomnia, unspecified type 3. Cerebrovascular accident (CVA), unspecified mechanism (HCC) 4. Depression, unspecified depression type Subjective HPI: Hx of TARIK. Followed with Dr. Elias. Unable to tolerate masks Inspire Device inserted 10/07/[address] 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 He gets sensory overload with lights and lots of people Last eye exam 1 month ago He says he is struggling with depression. He admits to suicidal ideation. At times feels anxious and has panic attacks He was getting counseling. It was helping He thinks in the past he tried Prozac and Zoloft REVIEW OF SYSTEMS: Review of Systems Constitutional: Negative. HENT: Negative. Eyes: Positive for visual disturbance. Respiratory: Negative. Cardiovascular: Negative. Gastrointestinal: Negative. Endocrine: Negative. Genitourinary: Negative. Musculoskeletal: Negative. Skin: Negative. Allergic/Immunologic: Negative. Hematological: Negative. Psychiatric/Behavioral: Positive for dysphoric mood, sleep disturbance and suicidal ideas. The patient is nervous/anxious. Allergies Allergen Reactions Pollen Extract Other Seasonal allergies. Outpatient Medications Prior to Visit Medication Sig Dispense Refill Ascorbic Acid (vitamin C) 1000 MG tablet Take 1,000 mg by mouth every morning (before breakfast). aspirin 81 MG EC tablet Take 81 mg by mouth daily. B Tphysug-Cuhunk-IZ (B COMPLEX 100 TR PO) Take by mouth every morning (before breakfast). cetirizine (ZyrTEC) 10 MG tablet Take by mouth every morning (before breakfast). cholecalciferol (Vitamin D-3) 125 MCG (5000 UT) capsule Take 5,000 Units by mouth daily. cloNIDine (Catapres) 0.1 MG tablet Take 0.1 mg by mouth Daily as needed. hydrALAZINE (Apresoline) 50 MG tablet 50 mg 2 times daily. Magnesium Ascorbate powder every morning (before breakfast). metoprolol succinate XL (Toprol-XL) 50 MG 24 hr tablet 50 mg in the morning and 50 mg in the evening. mirtazapine (Remeron) 45 MG tablet Take 1 tablet (45 mg) by mouth Nightly. 90 tablet 1 Plavix 75 MG tablet Take 75 mg by mouth daily. psyllium (Metamucil) 0.36 g capsule daily. Repatha SureClick 140 MG/ML injection Inject 140 mg under the skin every 14 (fourteen) days. tamsulosin (Flomax) 0.4 MG 24 hr capsule Take 0.4 mg by mouth daily. zinc gluconate 50 MG tablet Take 100 mg by mouth daily. Probiotic Product (PROBIOTIC BLEND PO) Take by mouth every morning (before breakfast). ALPHA LIPOIC ACID PO Take by mouth every morning (before breakfast). (Patient not taking: Reported on 10/04/2024) atorvastatin (Lipitor) 40 MG tablet Take 40 mg by mouth. (Patient not taking: Reported on 10/04/2024) irbesartan (Avapro) 75 MG tablet 75 mg. (Patient not taking: Reported on 10/04/2024) nitroglycerin (Nitrostat) 0.[address] 0.4 mg under the tongue every 5 minutes as needed. Quviviq 25 MG tablet Take 1 tablet by mouth daily. (Patient not taking: Reported on 10/04/2024) Vitamin E 100 units tablet Take by mouth every morning (before breakfast). (Patient not taking: Reported on 10/04/2024) No facility-administered medications prior to visit. Past Medical History: Diagnosis Date Anxiety not any more Arthritis Asthma Brain concussion numerous; skull fracture w/subdural hematoma 1976 Cluster headache occasionally, not frequent Colon polyp CTS (carpal tunnel syndrome) 20 years--surgery 03/06 Depression in the past Head injury 1967 Hyperlipidemia Hypertension Insomnia adulthood Irritable bowel syndrome Numbness left thigh, right foot/toe Restless leg syndrome years Sleep apnea 20-30 years DO NOT WEAR CPAP Syncope only when I cough Social History Tobacco Use Smoking status: Never Smokeless tobacco: Never Substance Use Topics Alcohol use: Yes Alcohol/week: 1.0 - 2.0 standard drink of alcohol Types: 1 - 2 Cans of beer per week Comment: Very occasional; go weeks and sometimes months without Past Surgical History: Procedure Laterality Date BICEPS TENDON REPAIR Left CARPAL TUNNEL RELEASE Right COLONOSCOPY ELBOW SURGERY HERNIA REPAIR Bilateral inguinal KNEE ARTHROSCOPY W/ MENISCECTOMY Bilateral ROSA FUNDOPLICATION OTHER SURGICAL HISTORY N/A 02/11/2023 Evaluation of sleep-disordered br (more content not included)... Normal [facility] 36on 09-25-2024 36 Faxed [employer] [employer] [facility] 36 Name of caller: Sai abbott Contact phone number: [phone] Relationship to Patient: Cardio Vascular [facility] Provider: KEON Millard Practice: [facility] [place] [facility] [place] Chief Complaint/Reason for Call: Malka is requesting Pt's last ov notes and MRI results be faxed over to fax # [phone] for Pt's upcoming appt with them on 10/13/24. Please be advised Best time of day caller can be reached: Any Patient advised that office/PCP has 24-48 business hours to return their call: N/A [facility] 36on 09-05-2024 36 We have been unable to reach your patient to schedule their testing. Test Name: echo and vascular us 1st Attempt: 07/22/2024 [employer] messages sent 2nd Attempt: 09/05/2024 spoke with patient he had them done at another hospital [facility] Office Visiton 08-01-2024 Follow-up visit [id number] Pilar Cardoso 1955 M Date Provider Department Center 08/01/2024 YESSENIA WATSON [facility] None No family history on file Level of Service:62695 ME OFFICE/OUTPATIENT ESTABLISHED MOD MDM 30 MIN Reason for Visit and Comments: Follow-up [050313] Sleeping Problem [347] [facility] Progress Noteon 08-01-2024 Progress Note Visit type: Establis hed Patient Reason for Visit: Follow-up and Sleeping Problem Assessment and Plan 1. Obstructive sleep apnea Subjective HPI: Hx of TARIK. Followed with Dr. Elias. Unable to tolerate masks Inspire Device inserted 10/07/[address] Steffen Layne tried for sleep- Trazodone, Mirtazapine, Amitriptyline, Lunesta, Seroquel, Ativan Device activated 11/30/23 Last OV Remeron increased to 45mg Pt reports that device was working well but then his jaw was giving him problems. He has not been able to use for about 10 days While not using he is waking gasping for air and having panic attacks REVIEW OF SYSTEMS: Review of Systems Constitutional: Negative. HENT: Negative. Eyes: Negative. Respiratory: Negative. Cardiovascular: Negative. Gastrointestinal: Negative. Endocrine: Negative. Genitourinary: Negative. Musculoskeletal: Negative. Skin: Negative. Allergic/Immunologic: Negative. Neurological: Negative. Hematological: Negative. Psychiatric/Behavioral: Positive for sleep disturbance. Allergies Allergen Reactions Pollen Extract Other Seasonal allergies. Outpatient Medications Prior to Visit Medication Sig Dispense Refill ALPHA LIPOIC ACID PO Take by mouth every morning (before breakfast). Ascorbic Acid (vitamin C) 1000 MG tablet Take 1,000 mg by mouth every morning (before breakfast). aspirin 81 MG EC tablet Take 81 mg by mouth daily. atorvastatin (Lipitor) 40 MG tablet Take 40 mg by mouth. B Vokwcif-Vdgxuc-OC (B COMPLEX 100 TR PO) Take by mouth every morning (before breakfast). cetirizine (ZyrTEC) 10 MG tablet Take by mouth every morning (before breakfast). cholecalciferol (Vitamin D-3) 125 MCG (5000 UT) capsule Take 5,000 Units by mouth daily. cloNIDine (Catapres) 0.1 MG tablet Take 0.1 mg by mouth Daily as needed. hydrALAZINE (Apresoline) 50 MG tablet 50 mg 2 times daily. irbesartan (Avapro) 75 MG tablet 75 mg. Magnesium Ascorbate powder every morning (before breakfast). metoprolol succinate XL (Toprol-XL) 50 MG 24 hr tablet 50 mg in the morning and 50 mg in the evening. mirtazapine (Remeron) 45 MG tablet Take 1 tablet (45 mg) by mouth Nightly. 90 tablet 1 nitroglycerin (Nitrostat) 0.[address] 0.4 mg under the tongue every 5 minutes as needed. Plavix 75 MG tablet Take 75 mg by mouth daily. Probiotic Product (PROBIOTIC BLEND PO) Take by mouth every morning (before breakfast). psyllium (Metamucil) 0.36 g capsule daily. Quviviq 25 MG tablet Take 1 tablet by mouth daily. tamsulosin (Flomax) 0.4 MG 24 hr capsule Take 0.4 mg by mouth daily. Vitamin E 100 units tablet Take by mouth every morning (before breakfast). zinc gluconate 50 MG tablet Take 100 mg by mouth daily. No facility-administered medications prior to visit. Past Medical History: Diagnosis Date Anxiety not any more Arthritis Asthma Brain concussion numerous; skull fracture w/subdural hematoma 1976 Cluster headache occasionally, not frequent Colon polyp CTS (carpal tunnel syndrome) 20 years--surgery 03/06 Depression in the past Head injury 1966 Hyperlipidemia Hypertension Insomnia adulthood Irritable bowel syndrome Numbness left thigh, right foot/toe Restless leg syndrome years Sleep apnea 20-30 years DO NOT WEAR CPAP Syncope only when I cough Social History Tobacco Use Smoking status: Never Smokeless tobacco: Never Substance Use Topics Alcohol use: Yes Alcohol/week: 1.0 - 2.0 standard drink of alcohol Types: 1 - 2 Cans of beer per week Comment: Very occasional; go weeks and sometimes months without Past Surgical History: Procedure Laterality Date BICEPS TENDON REPAIR Left CARPAL TUNNEL RELEASE Right COLONOSCOPY ELBOW SURGERY HERNIA REPAIR Bilateral inguinal KNEE ARTHROSCOPY W/ MENISCECTOMY Bilateral ROSA FUNDOPLICATION OTHER SURGICAL HISTORY N/A 02/11/2023 Evaluation of sleep-disordered breathing exam - Dr. Bourne, [facility] SHOULDER ARTHROSCOPY Left TEARS SURGICAL IMPLANT (HISTORICAL) 10/07/2023 INSPIRE - hypoglossal nerve neurostimulator and generator and breathing snesor implant - DR BOURNE TONSILLECTOMY AND ADENOIDECTOMY (HISTORICAL) UPPER GASTROINTESTINAL ENDOSCOPY No family history on file. Objective Vitals: BP 137/82 (BP Location: Left arm, Patient Position: Sitting, BP Cuff Size: Adult) Pulse 71 Ht 5' 5.5 (1.664 m) Wt 209 lb 3.2 oz (94.9 kg) BMI 34.28 kg/m? General Appearance: Patient is in no apparent distress. Head is normocephalic, atraumatic Cardiovascular: Regular rate and rhythm. No heart murmurs. No carotid bruit Neurologic: Mentation: Alert and oriented x 3 to person, place and time. Speech and Language: Speech and language normal Concentration and Attention: Concentration normal Memory: Memory normal Fund of Knowledge: Fund of knowledge normal Cranial Nerves: II, III, IV, V, , VII, VIII, IX, X, XI, XII examined and were intact. Motor: Strength: Stren (more content not included)... Normal [facility] A1Con 07-18-2024 Glucose [Mass/Vol] 123 mg/dL Normal [facility] Comment on above: Result Comment: Anayeli mated Average Glucose calculated by equation ((28.7xA1C)-46.7) Estimated average glucose (eAG) is a calculated value from Hemoglobin A1C and is medical detail representative of the average blood glucose level in the last 2-3 month period. Normal range: less than 114 mg/dL Performed By: #### A 1C, LIPID, TSHR #### [place] [id number] [place], [place] [address] HbA1c (Bld) [Mass fraction] 5.9 % Normal 4.3-6.4 [facility] Comment on above: Performed By: #### A 1C, LIPID, TSHR #### [address] [address] LABORATORYOrdered By: Michael Gomez on 07-18-2024 Cholesterol [Mass/Vol] 253 mg/dL High 0 - 200 mg/dL AO [facility] Comment on above: Interpretive Data: C holesterol Reference Interval: Less than 200 Desirable 200-239 Borderline high risk 240 and above High risk Cholesterol in HDL [Mass/Vol] 42 mg/dL Normal 40 - 60 mg/dL AO ADM SS Cholesterol in LDL [Mass/Vol] 161 mg/dL High 0 - 130 mg/dL AO ADM SS Triglyceride [Mass/Vol] 252 mg/dL High 0 - 150 mg/dL AO ADM SS Comment on above: Interpretive Data: T riglyceride Reference Interval: Less than 150 Normal 150-199 Borderline high risk 200-499 High risk 500 or higher Very high risk LABORATORYOrdered By: SYSTEM SYSTEM on 07-18-2024 Glucose [Mass/Vol] 123 mg/dL Invalid Interpretation Code AO Chemistry S Comment on above: Interpretive Data: E stimated average glucose (eAG) is a calculated value from Hemoglobin A1C and is medical detail representative of the average blood glucose level in the last 2-3 month period. Normal range: less than 114 mg/dL HbA1c (Bld) [Mass fraction] 5.9 % Normal 4.3 - 6.4 % AO [facility] TSH Qn 2.20 m[IU]/L Normal 0.36 - 3.74 mcIU/mL AO [facility] LIPIDon 07-18-2024 Cholesterol [Mass/Vol] 253 mg/dL High 0-200 [facility] Comment on above: Result Comment: Chol esterol Reference Interval: Less than 200 Desirable 200-239 Borderline high risk 240 and above High risk Performed By: #### A 1C, LIPID, TSHR #### [address] [address] Cholesterol in HDL [Mass/Vol] 42 mg/dL Normal 40-60 [facility] Comment on above: Performed By: #### A 1C, LIPID, TSHR #### [address] [address] Cholesterol in LDL [Mass/Vol] 161 mg/dL High 0-130 [facility] Comment on above: Performed By: #### A 1C, LIPID, TSHR #### [id number] [place], [place] [address] Triglyceride [Mass/Vol] 252 mg/dL High 0-150 [facility] Comment on above: Result Comment: Trig lyceride Reference Interval: Less than 150 Normal 150-199 Borderline high risk 200-499 High risk 500 or higher Very high risk Performed By: #### A 1C, LIPID, TSHR #### [id number] [place], [place] [address] TSHRon 07-18-2024 TSH Qn 2.20 m[IU]/L Normal 0.36-3.74 [facility] Comment on above: Performed By: #### A 1C, LIPID, TSHR #### [id number] [place], [place] [address] 29on 06-20-2024 29 Addended by: BONNY BADILLO on: 06/20/2024 02:14 PM Modules accepted: Orders Normal [facility] 36on 06-20-2024 36 Results are in media Normal [facility] 36 Request has been faxed Normal [facility] 36 I went thru [place] records 3 times I do not see an Echocardiogram, Carotid study, A1c or Lipid panel Can someone please contact them again Normal [facility] CT HEAD OR BRAIN W/O CONTRAS Ton 06-20-2024 CT HEAD OR BRAIN W/O CONTRAST ORIGINAL EXAMINATION: CT OF THE HEAD WITHOUT CONTRAST 06/19/2024 12:58 pm TECHNIQUE: CT of the head was performed without the administration of intravenous contrast. Automated exposure control, iterative reconstruction, and/or weight based adjustment of the mA/kV was utilized to reduce the radiation dose to as low as reasonably achievable. COMPARISON: 05/16/2024 CT head, 04/20/2024 CT head HISTORY: ORDERING SYSTEM PROVIDED HISTORY: Reason for Exam: [facility] follow up FINDINGS: BRAIN/VENTRICLES: Interval evolution of right parietal hematoma which measures approximately 35 mm in maximum diameter (2, 21), previously 37 mm. No significant midline shift. Interval decrease in mass effect with no significant distortion of the right ventricular atrium. There is similar narrowing of the right posterior parietal sulci. Minimal decrease of attenuation of the surrounding white matter. Scattered white matter hypodensities are nonspecific but statistically most consistent with mild chronic microvascular angiopathy. Carotid siphon and vertebral artery calcifications are present. ORBITS: The visualized portions of the orbits demonstrate no acute abnormality. SINUSES: The mastoid air cells are unremarkable. Minimal mucosal thickening of the lateral left maxillary sinus. SOFT TISSUE/SKULL: No acute abnormality of the visualized skull or soft tissues. IMPRESSION: Evolution of right parietal hematoma with decrease of mass effect and surrounding white matter changes. No acute findings. I have personally reviewed the images of this examination and agree with the resident's findings and interpretation. Interpreted by: Matilde Cornelius Preliminary Report By: Jerry Lake Electronically signed By Matilde Cornelius Dictated Date: 06/19/2024 4:55:34 PM Prelim Date: 06/20/2024 4:58:46 AM Sign Date: 06/20/2024 4:58:46 AM Ordering Provider: BETTY Blackburn [facility] Office Visiton 06-20-2024 Follow-up visit [id number] Pilar Cardoso 1955 M Date Provider Department Center 06/20/2024 [id number] AYALA [facility] None No family history on file Level of Service:77337 ME OFFICE/OUTPATIENT ESTABLISHED HIGH MDM 40 MIN Reason for Visit and Comments: Follow-up [161446] Sleep Apnea [348] [facility] Progress Noteon 06-20-2024 Progress Note Visit type: [facility] Reason for Visit: Follow-up and Sleep Apnea Assessment and Plan 1. Obstructive sleep apnea 2. Insomnia, unspecified type 3. Cerebrovascular accident (CVA), unspecified mechanism (HCC) 4. Left homonymous hemianopsia 5. Hyperlipidemia, unspecified hyperlipidemia type Subjective HPI: Hx of TARIK. Followed with Dr. Elias. Unable to tolerate masks Inspire Device inserted 10/07/[address] Steffen Layne tried for sleep- Trazodone, Mirtazapine, Amitriptyline, Lunesta, Seroquel, Ativan Device activated 11/30/23 Pt prefers to sleep on his side and stomach He states that Remeron 30mg was effective for sleep but is no longer effective While using gummies, he states his sleep was good On 04/19/24 he had cardiac stent placed On 04/20/24 he presented to [place] ER with confusion. He was trying to use the restroom and didn't know what to do. He had uncontrollable mvmts with his arm He states he is unable to recall a lot of the details He says while inpatient his bowels, bladder stopped working He had left side neglect and double vision Over the past 2 weeks he has had 90% improvement With prolonged sitting or lying down, after standing he will hear a whooshing sound He was getting frequent headaches Located right pentecostal Occasional dizziness No longer using a cane He had home care and was discharged. Suggested out pt therapy but he declined He had been taking low dose ASA and Plavix He states for stent placement he is to stay on Plavix times 1 yr He had a repeat CT yesterday Pt states his stroke was hemorrhagic Outside records- CT head showed 4.7cm right parietal intraparenchymal hemorrhage with extension into right lateral ventricle. Surrounding edema but no significant midline shift He was given 1 unit of plts Noted to be hypertensive upon admission Done 01/2024 A1c=6.1 DNF=850 Carotids 03/2023 Bilateral 1-39% No Echo on file REVIEW OF SYSTEMS: Review of Systems Constitutional: Negative. HENT: Negative. Eyes: Positive for visual disturbance. Respiratory: Negative. Cardiovascular: Negative. Gastrointestinal: Negative. Endocrine: Negative. Genitourinary: Negative. Musculoskeletal: Negative. Skin: Negative. Allergic/Immunologic: Negative. Neurological: Positive for dizziness and headaches. Hematological: Negative. Psychiatric/Behavioral: Positive for sleep disturbance. Allergies Allergen Reactions Pollen Extract Other Seasonal allergies. Outpatient Medications Prior to Visit Medication Sig Dispense Refill ALPHA LIPOIC ACID PO Take by mouth every morning (before breakfast). Ascorbic Acid (vitamin C) 1000 MG tablet Take 1,000 mg by mouth every morning (before breakfast). aspirin 81 MG EC tablet Take 81 mg by mouth daily. atorvastatin (Lipitor) 40 MG tablet Take 40 mg by mouth. B Gzwgaxq-Mcovpj-BS (B COMPLEX 100 TR PO) Take by mouth every morning (before breakfast). cetirizine (ZyrTEC) 10 MG tablet Take by mouth every morning (before breakfast). cholecalciferol (Vitamin D-3) 125 MCG (5000 UT) capsule Take 5,000 Units by mouth daily. cloNIDine (Catapres) 0.1 MG tablet Take 0.1 mg by mouth Daily as needed. hydrALAZINE (Apresoline) 50 MG tablet 50 mg 2 times daily. irbesartan (Avapro) 75 MG tablet 75 mg. Magnesium Ascorbate powder every morning (before breakfast). metoprolol succinate XL (Toprol-XL) 50 MG 24 hr tablet 50 mg in the morning and 50 mg in the evening. nitroglycerin (Nitrostat) 0.[address] 0.4 mg under the tongue every 5 minutes as needed. Plavix 75 MG tablet Take 75 mg by mouth daily. Probiotic Product (PROBIOTIC BLEND PO) Take by mouth every morning (before breakfast). psyllium (Metamucil) 0.36 g capsule daily. Quviviq 25 MG tablet Take 1 tablet by mouth daily. tamsulosin (Flomax) 0.4 MG 24 hr capsule Take 0.4 mg by mouth daily. Vitamin E 100 units tablet Take by mouth every morning (before breakfast). zinc gluconate 50 MG tablet Take 100 mg by mouth daily. mirtazapine (Remeron) 30 MG tablet Take 1 tablet (30 mg) by mouth Nightly. 30 tablet 2 No facility-administered medications prior to visit. Past Medical History: Diagnosis Date Anxiety not any more Arthritis Asthma Brain concussion numerous; skull fracture w/subdural hematoma 1976 Cluster headache occasionally, not frequent Colon polyp CTS (carpal tunnel syndrome) 20 years--surgery 03/06 Depression in the past Head injury 1966 Hyperlipidemia Hypertension Insomnia adulthood Irritable bowel syndrome Numbness left thigh, right foot/toe Restless leg syndrome years Sleep apnea 20-30 years DO NOT WEAR CPAP Syncope only when I cough Social History Tobacco Use Smoking status: Never Smokeless tobacco: Never Substance Use Topics Alcohol use: Yes Alcohol/week: 1.0 - 2.0 standard drink of alcohol Types: 1 - 2 Cans of beer per week Comment: Very occasional; go weeks and sometimes months witho (more content not included)... Normal [facility] Office Visiton 05-26-2024 Follow-up visit [id number] Pilar Cardoso 1955 M Date Provider Department [place] 05/26/2024 [id number] AYALA [facility] None No family history on file Level of Service:00812 ME OFFICE/OUTPATIENT ESTABLISHED MOD MDM 30 MIN Reason for Visit and Comments: Follow-up [327633] - [facility] Progress Noteon 05-26-2024 Progress Note Visit type: Establis hed Patient Reason for Visit: Follow-up (inspire) Assessment and Plan 1. Obstructive sleep apnea Subjective HPI: Hx of TARIK. Followed with Dr. Elias. Unable to tolerate masks Inspire Device inserted 10/07/[address] Steffen Layne tried for sleep- Trazodone, Mirtazapine, Amitriptyline, Lunesta, Seroquel, Ativan Device activated 11/30/23 04/19/2024 he had a cardiac stent placed 04/20/2024 he was treated at [place] for a stroke He says the Inspire Device stopped working shortly after his last visit here He then states he bought a new lamp with a charging station Therapy duration changed from 7-9 hrs REVIEW OF SYSTEMS: Review of Systems Constitutional: Negative. HENT: Negative. Eyes: Positive for visual disturbance. Respiratory: Negative. Cardiovascular: Negative. Gastrointestinal: Negative. Endocrine: Negative. Genitourinary: Negative. Musculoskeletal: Negative. Skin: Negative. Allergic/Immunologic: Negative. Neurological: Negative. Hematological: Negative. Psychiatric/Behavioral: Positive for sleep disturbance. Allergies Allergen Reactions Pollen Extract Other Seasonal allergies. Outpatient Medications Prior to Visit Medication Sig Dispense Refill ALPHA LIPOIC ACID PO Take by mouth every morning (before breakfast). Ascorbic Acid (vitamin C) 1000 MG tablet Take 1,000 mg by mouth every morning (before breakfast). aspirin 81 MG EC tablet Take 81 mg by mouth daily. atorvastatin (Lipitor) 40 MG tablet Take 40 mg by mouth. B Rdhgami-Rchzgh-QA (B COMPLEX 100 TR PO) Take by mouth every morning (before breakfast). cholecalciferol (Vitamin D-3) 125 MCG (5000 UT) capsule Take 5,000 Units by mouth daily. cloNIDine (Catapres) 0.1 MG tablet Take 0.1 mg by mouth Daily as needed. hydrALAZINE (Apresoline) 50 MG tablet 50 mg 2 times daily. Magnesium Ascorbate powder every morning (before breakfast). metoprolol succinate XL (Toprol-XL) 50 MG 24 hr tablet 50 mg in the morning and 50 mg in the evening. mirtazapine (Remeron) 30 MG tablet Take 1 tablet (30 mg) by mouth Nightly. 30 tablet 2 nitroglycerin (Nitrostat) 0.[address] 0.4 mg under the tongue every 5 minutes as needed. Plavix 75 MG tablet Take 75 mg by mouth daily. Probiotic Product (PROBIOTIC BLEND PO) Take by mouth every morning (before breakfast). psyllium (Metamucil) 0.36 g capsule daily. Quviviq 25 MG tablet Take 1 tablet by mouth daily. tamsulosin (Flomax) 0.4 MG 24 hr capsule Take 0.4 mg by mouth daily. cetirizine (ZyrTEC) 10 MG tablet Take by mouth every morning (before breakfast). irbesartan (Avapro) 75 MG tablet 75 mg. Vitamin E 100 units tablet Take by mouth every morning (before breakfast). zinc gluconate 50 MG tablet Take 100 mg by mouth daily. No facility-administered medications prior to visit. Past Medical History: Diagnosis Date Anxiety not any more Arthritis Asthma Brain concussion numerous; skull fracture w/subdural hematoma 1976 Cluster headache occasionally, not frequent Colon polyp CTS (carpal tunnel syndrome) 20 years--surgery 03/06 Depression in the past Head injury 1967 Hyperlipidemia Hypertension Insomnia adulthood Irritable bowel syndrome Numbness left thigh, right foot/toe Restless leg syndrome years Sleep apnea 20-30 years DO NOT WEAR CPAP Syncope only when I cough Social History Tobacco Use Smoking status: Never Smokeless tobacco: Never Substance Use Topics Alcohol use: Yes Alcohol/week: 1.0 - 2.0 standard drink of alcohol Types: 1 - 2 Cans of beer per week Comment: Very occasional; go weeks and sometimes months without Past Surgical History: Procedure Laterality Date BICEPS TENDON REPAIR Left CARPAL TUNNEL RELEASE Right COLONOSCOPY ELBOW SURGERY HERNIA REPAIR Bilateral inguinal KNEE ARTHROSCOPY W/ MENISCECTOMY Bilateral ROSA FUNDOPLICATION OTHER SURGICAL HISTORY N/A 02/11/2023 Evaluation of sleep-disordered breathing exam - Dr. Bourne, [facility] SHOULDER ARTHROSCOPY Left TEARS SURGICAL IMPLANT (HISTORICAL) 10/07/2023 INSPIRE - hypoglossal nerve neurostimulator and generator and breathing snesor implant - DR BOURNE TONSILLECTOMY AND ADENOIDECTOMY (HISTORICAL) UPPER GASTROINTESTINAL ENDOSCOPY No family history on file. Objective Vitals: BP (!) 143/79 (BP Location: Left arm, Patient Position: Sitting, BP Cuff Size: Adult) Pulse 85 Ht 5' 5.5 (1.664 m) Wt 194 lb (88 kg) BMI 31.79 kg/m? General Appearance: Patient is in no apparent distress. Head is normocephalic, atraumatic Cardiovascular: Regular rate and rhythm. No heart murmurs. No carotid bruit Neurologic: Mentation: Alert and oriented x 3 to person, place and time. Speech and Language: Speech and language normal Concentration and Attention: Concentration normal Memory: Memory normal Fund of Knowledge: Fund of knowledge normal Alternating Movements: Normal Cogwheel Rigidity: None Tone: Tone is normal (more content not included)... Normal [facility] CT HEAD OR BRAIN W/O CONTRAS Ton 05-16-2024 CT HEAD OR BRAIN W/O CONTRAST ORIGINAL HISTORY: Hemorrhage COMPARISON: 25 April 2024 TECHNIQUE: Routine noncontrast head CT, with sagittal and coronal reconstructions. This exam was performed according to our departmental dose optimization program, and includes the following measures where applicable: automated exposure control, adjustment of the mAs and/or kVp according to patient size and/or exam, and an iterative reconstruction algorithm. FINDINGS: There is a somewhat ill-defined right parietal hematoma, about 3.7 cm in maximum diameter. There is mild mass effect, with distortion of the ventricular atrium and narrowing of right posterior sulci. There is no significant midline shift. There is mild irregular decreased attenuation in the cerebral white matter; osorio-white matter differentiation outside the lesion is maintained. The calvaria and the bones of the base of the skull are intact. IMPRESSION: Interval evolution and decrease in right hematoma. Interpreted by: Lety Posadas MD Preliminary Report By: Lety Posadas MD Electronically signed By Lety Posadas MD Dictated Date: 05/16/2024 8:50:55 AM Prelim Date: 05/16/2024 8:52:41 AM Sign Date: 05/16/2024 8:52:41 AM Ordering Provider: BETTY Blackburn [facility] .Auto Diffon 04-25-2024 Basophil, Absolute 0.0 10 3/mcL Normal 0.0-0.3 [facility] Comment on above: Performed By: #### B MP, ADIFF, ANEU, GFR, CBC, APTT #### [address] [address] Basophils/100 WBC (Bld) 0.2 % Normal 0.0-2.5 [facility] Comment on above: Performed By: #### B MP, ADIFF, ANEU, GFR, CBC, APTT #### [address] [address] Eosinophil, Absolute 0.0 10 3/mcL Normal 0.0-0.7 [facility] Comment on above: Performed By: #### B MP, ADIFF, ANEU, GFR, CBC, APTT #### [address] [address] Eosinophils/100 WBC (Bld) 0.0 % Normal 0.0-6.0 [facility] Comment on above: Performed By: #### B MP, ADIFF, ANEU, GFR, CBC, APTT #### [address] [address] Lymphocyte, Absolute 1.0 10 3/mcL Normal 0.9-4.3 [facility] Comment on above: Performed By: #### B MP, ADIFF, ANEU, GFR, CBC, APTT #### [address] [address] Lymphocytes/100 WBC (Bld) 11.0 % Low 20.0-40.0 [facility] Comment on above: Performed By: #### B MP, ADIFF, ANEU, GFR, CBC, APTT #### [address] [address] Monocyte, Absolute 0.6 10 3/mcL Normal 0.1-1.4 [facility] Comment on above: Performed By: #### B MP, ADIFF, ANEU, GFR, CBC, APTT #### [address] [address] Monocytes/100 WBC (Bld) 6.7 % Normal 2.0-13.0 [facility] Comment on above: Performed By: #### B MP, ADIFF, ANEU, GFR, CBC, APTT #### [address] [address] Neutrophils/100 WBC (Bld) 82.1 % High 50.0-75.0 [facility] Comment on above: Performed By: #### B MP, ADIFF, ANEU, GFR, CBC, APTT #### [address] [address] .GFRon 04-25-2024 GFR Non- >60 [facility] Comment on above: Result Comment: GFR Population mean for , Non- Americans Ages 20-29 = 116 mL/min/1.73 sq.m. Ages 30-39 = 107 mL/min/1.73 sq.m. Ages 40-49 = 99 mL/min/1.73 sq.m. Ages 50-59 = 93 mL/min/1.73 sq.m. Ages 60-69 = 85 mL/min/1.73 sq.m. Ages 70+ = 75 mL/min/1.73 sq.m. Chronic Kidney Disease: Less than 60 mL/min/1.73 square meters End Stage Renal Disease: Less than 15 mL/min/1.73 square meters Performed By: #### B MP, ADIFF, ANEU, GFR, CBC, APTT #### [address] [address] GFR >60 Normal [facility] Comment on above: Result Comment: GFR Population mean for , Non- Americans Ages 20-29 = 116 mL/min/1.73 sq.m. Ages 30-39 = 107 mL/min/1.73 sq.m. Ages 40-49 = 99 mL/min/1.73 sq.m. Ages 50-59 = 93 mL/min/1.73 sq.m. Ages 60-69 = 85 mL/min/1.73 sq.m. Ages 70+ = 75 mL/min/1.73 sq.m. Chronic Kidney Disease: Less than 60 mL/min/1.73 square meters End Stage Renal Disease: Less than 15 mL/min/1.73 square meters Performed By: #### B MP, ADIFF, ANEU, GFR, CBC, APTT #### [address] [address] .NEUABSon 04-25-2024 Neutrophil, Absolute 7.1 10 3/mcL Normal 2.3-8.1 [facility] Comment on above: Performed By: #### B MP, ADIFF, ANEU, GFR, CBC, APTT #### [address] [address] BMPon 04-25-2024 BUN/Creatinine Ratio 20.4 ratio Normal 10.0-22.0 [facility] Comment on above: Performed By: #### B MP, ADIFF, ANEU, GFR, CBC, APTT #### [address] [address] Calcium [Mass/Vol] 9.4 mg/dL Normal 8.7-10.4 [facility] Comment on above: Performed By: #### B MP, ADIFF, ANEU, GFR, CBC, APTT #### [address] [address] Chloride [Moles/Vol] 103 mmol/L Normal 98-110 [facility] Comment on above: Performed By: #### B MP, ADIFF, ANEU, GFR, CBC, APTT #### [address] [address] CO2 [Moles/Vol] 27 mmol/L Normal 22-32 [facility] Comment on above: Performed By: #### B MP, ADIFF, ANEU, GFR, CBC, APTT #### [address] [address] Creatinine [Mass/Vol] 0.93 mg/dL Normal 0.60-1.40 [facility] Comment on above: Result Comment: Test ing performed on G2 Crowd analyzer using enzymatic creatinine methodology. Performed By: #### B MP, ADIFF, ANEU, GFR, CBC, APTT #### [address] [address] Electrolyte Balance 8.0 mEq/L Normal 4.0-15.0 [facility] Comment on above: Performed By: #### B MP, ADIFF, ANEU, GFR, CBC, APTT #### [address] [address] Glucose [Mass/Vol] 137 mg/dL High 82-115 [facility] Comment on above: Performed By: #### B MP, ADIFF, ANEU, GFR, CBC, APTT #### [place] [address] Potassium [Moles/Vol] 3.9 mmol/L Normal 3.5-5.0 [facility] Comment on above: Performed By: #### B MP, ADIFF, ANEU, GFR, CBC, APTT #### [place] [address] Sodium [Moles/Vol] 138 mmol/L Normal 136-145 [facility] Comment on above: Performed By: #### B MP, ADIFF, ANEU, GFR, CBC, APTT #### [place] [address] Urea nitrogen [Mass/Vol] 19.0 mg/dL Normal 8.0-22.0 [facility] Comment on above: Performed By: #### B MP, ADIFF, ANEU, GFR, CBC, APTT #### [place] [address] CBCon 04-25-2024 Erythrocyte distribution width (RBC) [Ratio] 14.3 % Normal 11.5-15.5 [facility] Comment on above: Performed By: #### B MP, ADIFF, ANEU, GFR, CBC, APTT #### [place] [address] Hematocrit (Bld) [Volume fraction] 37.1 % Low 40.0-52.0 [facility] Comment on above: Performed By: #### B MP, ADIFF, ANEU, GFR, CBC, APTT #### [place] [address] Hgb 12.5 G/dL Low 13.0-17.5 [facility] Comment on above: Performed By: #### B MP, ADIFF, ANEU, GFR, CBC, APTT #### [place] [address] MCH (RBC) [Entitic mass] 30.8 pg Normal 27.0-33.0 [facility] Comment on above: Performed By: #### B MP, ADIFF, ANEU, GFR, CBC, APTT #### [place] [address] MCHC 33.8 G/dL Normal 32.0-36.0 [facility] Comment on above: Performed By: #### B MP, ADIFF, ANEU, GFR, CBC, APTT #### [place] [address] MCV (RBC) [Entitic vol] 91.1 fL Normal 81.0-100.0 [facility] Comment on above: Performed By: #### B MP, ADIFF, ANEU, GFR, CBC, APTT #### [place] [address] Platelet 257 10 3/mcL Normal 150-450 [facility] Comment on above: Performed By: #### B MP, ADIFF, ANEU, GFR, CBC, APTT #### [place] [address] Platelet mean volume (Bld) [Entitic vol] 7.5 fL Normal 6.4-10.5 [facility] Comment on above: Performed By: #### B MP, ADIFF, ANEU, GFR, CBC, APTT #### [place] [address] RBC 4.07 10 6/mcL Low 4.50-6.00 [facility] Comment on above: Performed By: #### B MP, ADIFF, ANEU, GFR, CBC, APTT #### [place] [address] WBC 8.7 10 3/mcL Normal 4.5-10.8 [facility] Comment on above: Performed By: #### B MP, ADIFF, ANEU, GFR, CBC, APTT #### [place] [address] CT HEAD OR BRAIN W/O CONTRAS Ton 04-25-2024 CT HEAD OR BRAIN W/O CONTRAST ORIGINAL HISTORY: Hemorrhage COMPARISON: Previous day TECHNIQUE: Routine noncontrast head CT, with sagittal and coronal reconstructions. This exam was performed according to our departmental dose optimization program, and includes the following measures where applicable: automated exposure control, adjustment of the mAs and/or kVp according to patient size and/or exam, and an iterative reconstruction algorithm. FINDINGS: There is a 4.4 cm centered in the right parietal lobe. There is mild associated mass effect, with effacement of the occipital horn and narrowing of right-sided sulci. The ventricles and sulci are otherwise within normal size limits. Osorio-white matter differentiation outside the lesion is maintained. The calvaria and the bones of the base of the skull are intact. IMPRESSION: No significant interval change. Interpreted by: Lety Posadas MD Preliminary Report By: Lety oPsadas MD Electronically signed By Lety Posadas MD Dictated Date: 04/25/2024 12:51:46 PM Prelim Date: 04/25/2024 12:56:44 PM Sign Date: 04/25/2024 12:56:44 PM Ordering Provider: BARRIE Blackburn [facility] LABORATORYOrdered By: Roberta Rincon on 04-25-2024 Blood Glucose Testing Reason Routine (04/25/24 4:06 AM) [facility] Work Phone: Glucose [Mass/Vol] 137 mg/dL High 82 - 115 mg/dL [facility] Work Phone: LABORATORYOrdered By: SYSTEM SYSTEM on 04-25-2024 Basophils (Bld) [#/Vol] 0.0 103/mcL Normal 0.0 - 0.3 10^3/mcL [facility] Workflow SS Basophils/100 WBC (Bld) 0.2 % Normal 0.0 - 2.5 % [facility] Workflow SS Calcium [Mass/Vol] 9.4 mg/dL Normal 8.7 - 10. 4 mg/dL AH ADM SS Chloride [Moles/Vol] 103 mmol/L Normal 98 - 11 0 mEq/L AH ADM SS CO2 [Moles/Vol] 27 mmol/L Normal 22 - 32 mEq/L AH ADM SS Creatinine [Mass/Vol] 0.93 mg/dL Normal 0.60 - 1.40 mg/dL AH ADM SS Comment on above: Interpretive Data: T esting performed on [employer] CH analyzer using enzymatic creatinine methodology. Electrolyte Balance 8.0 mEq/L Normal 4.0 - 15 .0 mEq/L AH ADM SS Eosinophils (Bld) [#/Vol] 0.0 103/mcL Normal 0.0 - 0.7 10^3/mcL Workflow SS Eosinophils/100 WBC (Bld) 0.0 % Normal 0.0 - 6.0 % Workflow SS Erythrocyte distribution width (RBC) [Ratio] 14.3 % Normal 11.5 - 15.5 % Workflow SS GFR/1.73 sq M.predicted among blacks MDRD (S/P/Bld) [Vol rate/Area] ml/min/1.73sqm Invalid Interpretation Code [facility] Comment on above: Interpretive Data: GFR Population mean for , Non- Americans Ages 20-29 = 116 mL/min/1.73 sq.m. Ages 30-39 = 107 mL/min/1.73 sq.m. Ages 40-49 = 99 mL/min/1.73 sq.m. Ages 50-59 = 93 mL/min/1.73 sq.m. Ages 60-69 = 85 mL/min/1.73 sq.m. Ages 70+ = 75 mL/min/1.73 sq.m. Chronic Kidney Disease: Less than 60 mL/min/1.73 square meters End Stage Renal Disease: Less than 15 mL/min/1.73 square meters GFR/1.73 sq M.predicted among non-blacks MDRD (S/P/Bld) [Vol rate/Area] ml/min/1.73sqm Invalid Interpretation Code [facility] Comment on above: Interpretive Data: GFR Population mean for , Non- Americans Ages 20-29 = 116 mL/min/1.73 sq.m. Ages 30-39 = 107 mL/min/1.73 sq.m. Ages 40-49 = 99 mL/min/1.73 sq.m. Ages 50-59 = 93 mL/min/1.73 sq.m. Ages 60-69 = 85 mL/min/1.73 sq.m. Ages 70+ = 75 mL/min/1.73 sq.m. Chronic Kidney Disease: Less than 60 mL/min/1.73 square meters End Stage Renal Disease: Less than 15 mL/min/1.73 square meters Glucose [Mass/Vol] 137 mg/dL High 82 - 115 mg/dL [facility] Hematocrit (Bld) [Volume fraction] 37.1 % Low 40.0 - 52.0 % AH Workflow SS Hemoglobin (Bld) [Mass/Vol] 12.5 G/dL Low 13.0 - 17.5 G/dL AH Workflow SS Lymphocytes (Bld) [#/Vol] 1.0 103/mcL Normal 0.9 - 4.3 10^3/mcL AH Workflow SS Lymphocytes/100 WBC (Bld) 11.0 % Low 20.0 - 40.0 % AH Workflow SS MCH (RBC) [Entitic mass] 30.8 pg Normal 27.0 - 33.0 pg AH Workflow SS MCHC 33.8 G/dL Normal 32.0 - 36.0 G/dL AH Workflow SS MCV (RBC) [Entitic vol] 91.1 fL Normal 81.0 - 100.0 fL AH Workflow SS Monocytes (Bld) [#/Vol] 0.6 103/mcL Normal 0.1 - 1.4 10^3/mcL AH Workflow SS Monocytes/100 WBC (Bld) 6.7 % Normal 2.0 - 13.0 % AH Workflow SS Neutrophils (Bld) [#/Vol] 7.1 103/mcL Normal 2.3 - 8.1 10^3/mcL AH Workflow SS Neutrophils/100 WBC (Bld) 82.1 % High 50.0 - 75.0 % AH Workflow SS Platelet mean volume (Bld) [Entitic vol] 7.5 fL Normal 6.4 - 10.5 fL AH Workflow SS Platelets (Bld) [#/Vol] 257 103/mcL Normal 150 - 450 10^3/mcL AH Workflow SS Potassium [Moles/Vol] 3.9 mmol/L Normal 3.5 - 5.0 mEq/L AH ADM SS RBC (Bld) [#/Vol] 4.07 106/mcL Low 4.50 - 6.0 0 10^6/mcL AH Workflow SS Sodium [Moles/Vol] 138 mmol/L Normal 136 - 145 mEq/L AH ADM SS Urea nitrogen [Mass/Vol] 19.0 mg/dL Normal 8.0 - 22.0 mg/dL AH ADM SS Urea nitrogen/Creatinine [Mass ratio] 20.4 ratio Normal 10.0 - 22.0 ratio AH ADM SS WBC (Bld) [#/Vol] 8.7 103/mcL Normal 4.5 - 10.8 10^3/mcL AH Workflow SS .Auto Diffon 04-24-2024 Basophil, Absolute 0.0 10 3/mcL Normal 0.0-0.3 [facility] Comment on above: Performed By: #### B MP, ADIFF, ANEU, GFR, CBC, APTT #### [address] [address] Basophils/100 WBC (Bld) 0.4 % Normal 0.0-2.5 [facility] Comment on above: Performed By: #### B MP, ADIFF, ANEU, GFR, CBC, APTT #### [address] [address] Eosinophil, Absolute 0.0 10 3/mcL Normal 0.0-0.7 [facility] Comment on above: Performed By: #### B MP, ADIFF, ANEU, GFR, CBC, APTT #### [address] [address] Eosinophils/100 WBC (Bld) 0.4 % Normal 0.0-6.0 [facility] Comment on above: Performed By: #### B MP, ADIFF, ANEU, GFR, CBC, APTT #### [address] [address] Lymphocyte, Absolute 1.2 10 3/mcL Normal 0.9-4.3 [facility] Comment on above: Performed By: #### B MP, ADIFF, ANEU, GFR, CBC, APTT #### [address] [address] Lymphocytes/100 WBC (Bld) 13.8 % Low 20.0-40.0 [facility] Comment on above: Performed By: #### B MP, ADIFF, ANEU, GFR, CBC, APTT #### [address] [address] Monocyte, Absolute 0.9 10 3/mcL Normal 0.1-1.4 [facility] Comment on above: Performed By: #### B MP, ADIFF, ANEU, GFR, CBC, APTT #### [address] [address] Monocytes/100 WBC (Bld) 9.8 % Normal 2.0-13.0 [facility] Comment on above: Performed By: #### B MP, ADIFF, ANEU, GFR, CBC, APTT #### [address] [address] Neutrophils/100 WBC (Bld) 75.6 % High 50.0-75.0 [facility] Comment on above: Performed By: #### B MP, ADIFF, ANEU, GFR, CBC, APTT #### [address] [address] .GFRon 04-24-2024 GFR >60 [facility] Comment on above: Result Comment: GFR Population mean for , Non- Americans Ages 20-29 = 116 mL/min/1.73 sq.m. Ages 30-39 = 107 mL/min/1.73 sq.m. Ages 40-49 = 99 mL/min/1.73 sq.m. Ages 50-59 = 93 mL/min/1.73 sq.m. Ages 60-69 = 85 mL/min/1.73 sq.m. Ages 70+ = 75 mL/min/1.73 sq.m. Chronic Kidney Disease: Less than 60 mL/min/1.73 square meters End Stage Renal Disease: Less than 15 mL/min/1.73 square meters Performed By: #### B MP, ADIFF, ANEU, GFR, CBC, APTT #### [address] [address] GFR Non- >60 [facility] MAIN Comment on above: Result Comment: GFR Population mean for , Non- Americans Ages 20-29 = 116 mL/min/1.73 sq.m. Ages 30-39 = 107 mL/min/1.73 sq.m. Ages 40-49 = 99 mL/min/1.73 sq.m. Ages 50-59 = 93 mL/min/1.73 sq.m. Ages 60-69 = 85 mL/min/1.73 sq.m. Ages 70+ = 75 mL/min/1.73 sq.m. Chronic Kidney Disease: Less than 60 mL/min/1.73 square meters End Stage Renal Disease: Less than 15 mL/min/1.73 square meters Performed By: #### B MP, ADIFF, ANEU, GFR, CBC, APTT #### [address] [address] .NEUABSon 04-24-2024 Neutrophil, Absolute 6.8 10 3/mcL Normal 2.3-8.1 [facility] Comment on above: Performed By: #### B MP, ADIFF, ANEU, GFR, CBC, APTT #### [place] [address] APTTon 04-24-2024 aPTT Coag (Bld) [Time] 44.3 s High 25.0-35.0 [facility] Comment on above: Result Comment: For Heparin anticoagulation therapy, the recommended therapeutic range is: 54-77 seconds (APTT Correlation with Anti-Xa therapeutic range of 0.3-0.7 units/ml). PLEASE REFERENCE THE PHARMACY PROTOCOL FOR DOSING. Performed By: #### B MP, ADIFF, ANEU, GFR, CBC, APTT #### [place] [address] aPTT Coag (Bld) [Time] 52.7 s High 25.0-35.0 [facility] Comment on above: Result Comment: For Heparin anticoagulation therapy, the recommended therapeutic range is: 54-77 seconds (APTT Correlation with Anti-Xa therapeutic range of 0.3-0.7 units/ml). PLEASE REFERENCE THE PHARMACY PROTOCOL FOR DOSING. Performed By: #### A PTT #### [place] [address] aPTT Coag (Bld) [Time] 56.0 s High 25.0-35.0 [facility] Comment on above: Result Comment: For Heparin anticoagulation therapy, the recommended therapeutic range is: 54-77 seconds (APTT Correlation with Anti-Xa therapeutic range of 0.3-0.7 units/ml). PLEASE REFERENCE THE PHARMACY PROTOCOL FOR DOSING. Performed By: #### B MP, ADIFF, ANEU, GFR, CBC, APTT #### [place] [id number] BMPon 04-24-2024 BUN/Creatinine Ratio 17.9 ratio Normal 10.0-22.0 [facility] Comment on above: Performed By: #### B MP, ADIFF, ANEU, GFR, CBC, APTT #### [address] [address] Calcium [Mass/Vol] 9.0 mg/dL Normal 8.7-10.4 [facility] Comment on above: Performed By: #### B MP, ADIFF, ANEU, GFR, CBC, APTT #### [address] [address] Chloride [Moles/Vol] 104 mmol/L Normal 98-110 [facility] Comment on above: Performed By: #### B MP, ADIFF, ANEU, GFR, CBC, APTT #### [address] [address] CO2 [Moles/Vol] 28 mmol/L Normal 22-32 [facility] Comment on above: Performed By: #### B MP, ADIFF, ANEU, GFR, CBC, APTT #### [address] [address] Creatinine [Mass/Vol] 1.06 mg/dL Normal 0.60-1.40 [facility] Comment on above: Result Comment: Test ing performed on [employer] analyzer using enzymatic creatinine methodology. Performed By: #### B MP, ADIFF, ANEU, GFR, CBC, APTT #### [address] [address] Electrolyte Balance 6.0 mEq/L Normal 4.0-15.0 [facility] Comment on above: Performed By: #### B MP, ADIFF, ANEU, GFR, CBC, APTT #### [address] [address] Glucose [Mass/Vol] 119 mg/dL High 82-115 [facility] Comment on above: Performed By: #### B MP, ADIFF, ANEU, GFR, CBC, APTT #### [address] [address] Potassium [Moles/Vol] 3.5 mmol/L Normal 3.5-5.0 [facility] Comment on above: Performed By: #### B MP, ADIFF, ANEU, GFR, CBC, APTT #### [place] [address] Sodium [Moles/Vol] 138 mmol/L Normal 136-145 [facility] Comment on above: Performed By: #### B MP, ADIFF, ANEU, GFR, CBC, APTT #### [place] [address] Urea nitrogen [Mass/Vol] 19.0 mg/dL Normal 8.0-22.0 [facility] Comment on above: Performed By: #### B MP, ADIFF, ANEU, GFR, CBC, APTT #### [place] [address] CBCon 04-24-2024 Erythrocyte distribution width (RBC) [Ratio] 14.4 % Normal 11.5-15.5 [facility] Comment on above: Performed By: #### B MP, ADIFF, ANEU, GFR, CBC, APTT #### [place] [address] Hematocrit (Bld) [Volume fraction] 36.1 % Low 40.0-52.0 [facility] Comment on above: Performed By: #### B MP, ADIFF, ANEU, GFR, CBC, APTT #### [place] [address] Hgb 12.2 G/dL Low 13.0-17.5 [facility] Comment on above: Performed By: #### B MP, ADIFF, ANEU, GFR, CBC, APTT #### [place] [address] MCH (RBC) [Entitic mass] 31.1 pg Normal 27.0-33.0 [facility] Comment on above: Performed By: #### B MP, ADIFF, ANEU, GFR, CBC, APTT #### [place] [address] MCHC 33.8 G/dL Normal 32.0-36.0 [facility] Comment on above: Performed By: #### B MP, ADIFF, ANEU, GFR, CBC, APTT #### [place] [address] MCV (RBC) [Entitic vol] 92.0 fL Normal 81.0-100.0 [facility] Comment on above: Performed By: #### B MP, ADIFF, ANEU, GFR, CBC, APTT #### [place] [address] Platelet 233 10 3/mcL Normal 150-450 [facility] Comment on above: Performed By: #### B MP, ADIFF, ANEU, GFR, CBC, APTT #### [place] [address] Platelet mean volume (Bld) [Entitic vol] 7.9 fL Normal 6.4-10.5 [facility] Comment on above: Performed By: #### B MP, ADIFF, ANEU, GFR, CBC, APTT #### [place] [id number] RBC 3.93 10 6/mcL Low 4.50-6.00 [facility] Comment on above: Performed By: #### B MP, ADIFF, ANEU, GFR, CBC, APTT #### [place] [address] WBC 9.0 10 3/mcL Normal 4.5-10.8 [facility] Comment on above: Performed By: #### B MP, ADIFF, ANEU, GFR, CBC, APTT #### [place] [address] CT HEAD OR BRAIN W/O CONTRAS Ton 04-24-2024 CT HEAD OR BRAIN W/O CONTRAST ORIGINAL EXAMINATION: CT OF THE HEAD WITHOUT CONTRAST04/24/2024 5:[address] HEAD/BRAIN WITHOUT CONTRAST EXAM DESCRIPTION: TECHNIQUE: CT of the head was performed without the administration of intravenous contrast. Automated exposure control, iterative reconstruction, and/or weight based adjustment of the mA/kV was utilized to reduce the radiation dose to as low as reasonably achievable. COMPARISON: CT head, April 20-April 23, 2024. HISTORY: ORDERING SYSTEM PROVIDED HISTORY: Reason for Exam: IPH, twitching, visual changes, PT STATES NO PRE NEURO HX, ON THINNER FINDINGS: Redemonstration intraparenchymal hemorrhage right parietal lobe now measuring 4.4 x 2.5 cm previously 4.2 x 2.5 cm. Small amount of surrounding edema is present. No significant midline shift. No new hemorrhages are identified. There is no evidence of mass, midline shift, or infract. The ventricles, cortical sulci, and subarachnoid cisterns appear unremarkable. Regions of the orbits and paranasal sinuses included within the field of view are unremarkable. There is no displaced fracture or osseous neoplasm. The extracalvarial soft tissues appear unremarkable. IMPRESSION: No significant change in the right parietal intraparenchymal hemorrhage without identification of new hemorrhage. Interpreted by: Zackary Pineda MD Preliminary Report By: Zackary Pineda MD Electronically signed By Zackary Pineda MD Dictated Date: 04/24/2024 5:33:43 PM Prelim Date: 04/24/2024 5:36:02 PM Sign Date: 04/24/2024 5:36:02 PM Ordering Provider: PATRICIA Blackburn [facility] LABORATORYOrdered By: Maegan claudio on 04-24-2024 Blood Glucose Testing Reason Routine (04/24/24 8:20 PM) [facility] Work Phone: Glucose [Mass/Vol] 186 mg/dL High 82 - 115 mg/dL [facility] Work Phone: LABORATORYOrdered By: Ozzie Lopez on 04-24-2024 Blood Glucose Testing Reason Routine (04/24/24 3:30 PM) [facility] Work Phone: Glucose [Mass/Vol] 146 mg/dL High 82 - 115 mg/dL [facility] Work Phone: LABORATORYOrdered By: SYSTEM SYSTEM on 04-24-2024 aPTT Coag (Bld) [Time] 44.3 s High 25.0 - 35.0 seconds [facility] SS Comment on above: Interpretive Data: F or Heparin anticoagulation therapy, the recommended therapeutic range is: 54-77 seconds (APTT Correlation with Anti-Xa therapeutic range of 0.3-0.7 units/ml). PLEASE REFERENCE THE PHARMACY PROTOCOL FOR DOSING. aPTT Coag (Bld) [Time] 52.7 s High 25.0 - 35.0 seconds [facility] SS Comment on above: Interpretive Data: F or Heparin anticoagulation therapy, the recommended therapeutic range is: 54-77 seconds (APTT Correlation with Anti-Xa therapeutic range of 0.3-0.7 units/ml). PLEASE REFERENCE THE PHARMACY PROTOCOL FOR DOSING. Basophils (Bld) [#/Vol] 0.0 103/mcL Normal 0.0 - 0.3 10^3/mcL Workflow SS Basophils/100 WBC (Bld) 0.4 % Normal 0.0 - 2.5 % Workflow SS Calcium [Mass/Vol] 9.0 mg/dL Normal 8.7 - 10. 4 mg/dL ADM SS Chloride [Moles/Vol] 104 mmol/L Normal 98 - 11 0 mEq/L ADM SS CO2 [Moles/Vol] 28 mmol/L Normal 22 - 32 mEq/L ADM SS Creatinine [Mass/Vol] 1.06 mg/dL Normal 0.60 - 1.40 mg/dL ADM SS Comment on above: Interpretive Data: T esting performed on [employer] analyzer using enzymatic creatinine methodology. Electrolyte Balance 6.0 mEq/L Normal 4.0 - 15 .0 mEq/L ADM SS Eosinophils (Bld) [#/Vol] 0.0 103/mcL Normal 0.0 - 0.7 10^3/mcL Workflow SS Eosinophils/100 WBC (Bld) 0.4 % Normal 0.0 - 6.0 % Workflow SS Erythrocyte distribution width (RBC) [Ratio] 14.4 % Normal 11.5 - 15.5 % Workflow SS GFR/1.73 sq M.predicted among blacks MDRD (S/P/Bld) [Vol rate/Area] ml/min/1.73sqm Invalid Interpretation Code ADM SS Comment on above: Interpretive Data: GFR Population mean for , Non- Americans Ages 20-29 = 116 mL/min/1.73 sq.m. Ages 30-39 = 107 mL/min/1.73 sq.m. Ages 40-49 = 99 mL/min/1.73 sq.m. Ages 50-59 = 93 mL/min/1.73 sq.m. Ages 60-69 = 85 mL/min/1.73 sq.m. Ages 70+ = 75 mL/min/1.73 sq.m. Chronic Kidney Disease: Less than 60 mL/min/1.73 square meters End Stage Renal Disease: Less than 15 mL/min/1.73 square meters GFR/1.73 sq M.predicted among non-blacks MDRD (S/P/Bld) [Vol rate/Area] ml/min/1.73sqm Invalid Interpretation Code AH ADM SS Comment on above: Interpretive Data: GFR Population mean for , Non- Americans Ages 20-29 = 116 mL/min/1.73 sq.m. Ages 30-39 = 107 mL/min/1.73 sq.m. Ages 40-49 = 99 mL/min/1.73 sq.m. Ages 50-59 = 93 mL/min/1.73 sq.m. Ages 60-69 = 85 mL/min/1.73 sq.m. Ages 70+ = 75 mL/min/1.73 sq.m. Chronic Kidney Disease: Less than 60 mL/min/1.73 square meters End Stage Renal Disease: Less than 15 mL/min/1.73 square meters Glucose [Mass/Vol] 119 mg/dL High 82 - 115 mg/dL ADM SS Hematocrit (Bld) [Volume fraction] 36.1 % Low 40.0 - 52.0 % AH Workflow SS Hemoglobin (Bld) [Mass/Vol] 12.2 G/dL Low 13.0 - 17.5 G/dL AH Workflow SS Lymphocytes (Bld) [#/Vol] 1.2 103/mcL Normal 0.9 - 4.3 10^3/mcL AH Workflow SS Lymphocytes/100 WBC (Bld) 13.8 % Low 20.0 - 40.0 % AH Workflow SS MCH (RBC) [Entitic mass] 31.1 pg Normal 27.0 - 33.0 pg AH Workflow SS MCHC 33.8 G/dL Normal 32.0 - 36.0 G/dL AH Workflow SS MCV (RBC) [Entitic vol] 92.0 fL Normal 81.0 - 100.0 fL AH Workflow SS Monocytes (Bld) [#/Vol] 0.9 103/mcL Normal 0.1 - 1.4 10^3/mcL AH Workflow SS Monocytes/100 WBC (Bld) 9.8 % Normal 2.0 - 13.0 % AH Workflow SS Neutrophils (Bld) [#/Vol] 6.8 103/mcL Normal 2.3 - 8.1 10^3/mcL Workflow SS Neutrophils/100 WBC (Bld) 75.6 % High 50.0 - 75.0 % Workflow SS Platelet mean volume (Bld) [Entitic vol] 7.9 fL Normal 6.4 - 10.5 fL Workflow SS Platelets (Bld) [#/Vol] 233 103/mcL Normal 150 - 450 10^3/mcL Workflow SS Potassium [Moles/Vol] 3.5 mmol/L Normal 3.5 - 5.0 mEq/L ADM SS RBC (Bld) [#/Vol] 3.93 106/mcL Low 4.50 - 6.0 0 10^6/mcL Workflow SS Sodium [Moles/Vol] 138 mmol/L Normal 136 - 145 mEq/L ADM SS Urea nitrogen [Mass/Vol] 19.0 mg/dL Normal 8.0 - 22.0 mg/dL ADM SS Urea nitrogen/Creatinine [Mass ratio] 17.9 ratio Normal 10.0 - 22.0 ratio ADM SS WBC (Bld) [#/Vol] 9.0 103/mcL Normal 4.5 - 10.8 10^3/mcL Workflow SS aPTT Coag (Bld) [Time] 56.0 s High 25.0 - 35.0 seconds [facility] SS Comment on above: Interpretive Data: F or Heparin anticoagulation therapy, the recommended therapeutic range is: 54-77 seconds (APTT Correlation with Anti-Xa therapeutic range of 0.3-0.7 units/ml). PLEASE REFERENCE THE PHARMACY PROTOCOL FOR DOSING. .Auto Diffon 04-23-2024 Basophil, Absolute 0.1 10 3/mcL Normal 0.0-0.3 [facility] Comment on above: Performed By: #### B MP, ADIFF, ANEU, GFR, CBC, APTT #### [address] [address] Basophils/100 WBC (Bld) 0.7 % Normal 0.0-2.5 [facility] Comment on above: Performed By: #### B MP, ADIFF, ANEU, GFR, CBC, APTT #### [address] [address] Eosinophil, Absolute 0.0 10 3/mcL Normal 0.0-0.7 [facility] Comment on above: Performed By: #### B MP, ADIFF, ANEU, GFR, CBC, APTT #### [address] [address] Eosinophils/100 WBC (Bld) 0.0 % Normal 0.0-6.0 [facility] Comment on above: Performed By: #### B MP, ADIFF, ANEU, GFR, CBC, APTT #### [address] [address] Lymphocyte, Absolute 1.2 10 3/mcL Normal 0.9-4.3 [facility] Comment on above: Performed By: #### B MP, ADIFF, ANEU, GFR, CBC, APTT #### [address] [address] Lymphocytes/100 WBC (Bld) 11.0 % Low 20.0-40.0 [facility] Comment on above: Performed By: #### B MP, ADIFF, ANEU, GFR, CBC, APTT #### [address] [address] Monocyte, Absolute 1.0 10 3/mcL Normal 0.1-1.4 [facility] Comment on above: Performed By: #### B MP, ADIFF, ANEU, GFR, CBC, APTT #### [address] [address] Monocytes/100 WBC (Bld) 8.6 % Normal 2.0-13.0 [facility] Comment on above: Performed By: #### B MP, ADIFF, ANEU, GFR, CBC, APTT #### [address] [address] Neutrophils/100 WBC (Bld) 79.7 % High 50.0-75.0 [facility] Comment on above: Performed By: #### B MP, ADIFF, ANEU, GFR, CBC, APTT #### [address] [address] .GFRon 04-23-2024 GFR >60 Normal [facility] Comment on above: Result Comment: GFR Population mean for , Non- Americans Ages 20-29 = 116 mL/min/1.73 sq.m. Ages 30-39 = 107 mL/min/1.73 sq.m. Ages 40-49 = 99 mL/min/1.73 sq.m. Ages 50-59 = 93 mL/min/1.73 sq.m. Ages 60-69 = 85 mL/min/1.73 sq.m. Ages 70+ = 75 mL/min/1.73 sq.m. Chronic Kidney Disease: Less than 60 mL/min/1.73 square meters End Stage Renal Disease: Less than 15 mL/min/1.73 square meters Performed By: #### B MP, ADIFF, ANEU, GFR, CBC, APTT #### [address] [address] GFR Non- >60 Normal [facility] Comment on above: Result Comment: GFR Population mean for , Non- Americans Ages 20-29 = 116 mL/min/1.73 sq.m. Ages 30-39 = 107 mL/min/1.73 sq.m. Ages 40-49 = 99 mL/min/1.73 sq.m. Ages 50-59 = 93 mL/min/1.73 sq.m. Ages 60-69 = 85 mL/min/1.73 sq.m. Ages 70+ = 75 mL/min/1.73 sq.m. Chronic Kidney Disease: Less than 60 mL/min/1.73 square meters End Stage Renal Disease: Less than 15 mL/min/1.73 square meters Performed By: #### B MP, ADIFF, ANEU, GFR, CBC, APTT #### [address] [address] .NEUABSon 04-23-2024 Neutrophil, Absolute 8.9 10 3/mcL High 2.3-8.1 [facility] Comment on above: Performed By: #### B MP, ADIFF, ANEU, GFR, CBC, APTT #### [address] [address] APTTon 04-23-2024 aPTT Coag (Bld) [Time] 28.5 s Normal 25.0-35.0 [facility] Comment on above: Result Comment: For Heparin anticoagulation therapy, the recommended therapeutic range is: 54-77 seconds (APTT Correlation with Anti-Xa therapeutic range of 0.3-0.7 units/ml). PLEASE REFERENCE THE PHARMACY PROTOCOL FOR DOSING. Performed By: #### A PTT #### [place] [address] aPTT Coag (Bld) [Time] 44.7 s High 25.0-35.0 [facility] Comment on above: Result Comment: For Heparin anticoagulation therapy, the recommended therapeutic range is: 54-77 seconds (APTT Correlation with Anti-Xa therapeutic range of 0.3-0.7 units/ml). PLEASE REFERENCE THE PHARMACY PROTOCOL FOR DOSING. Performed By: #### A PTT #### [place] [id number] aPTT Coag (Bld) [Time] 45.0 s High 25.0-35.0 [facility] Comment on above: Result Comment: For Heparin anticoagulation therapy, the recommended therapeutic range is: 54-77 seconds (APTT Correlation with Anti-Xa therapeutic range of 0.3-0.7 units/ml). PLEASE REFERENCE THE PHARMACY PROTOCOL FOR DOSING. Performed By: #### B MP, ADIFF, ANEU, GFR, CBC, APTT #### [address] [address] BMPon 04-23-2024 BUN/Creatinine Ratio 23.3 ratio High 10.0-22.0 [facility] Comment on above: Performed By: #### B MP, ADIFF, ANEU, GFR, CBC, APTT #### [address] [address] Calcium [Mass/Vol] 9.0 mg/dL Normal 8.7-10.4 [facility] Comment on above: Performed By: #### B MP, ADIFF, ANEU, GFR, CBC, APTT #### [address] [address] Chloride [Moles/Vol] 108 mmol/L Normal 98-110 [facility] Comment on above: Performed By: #### B MP, ADIFF, ANEU, GFR, CBC, APTT #### [address] [address] CO2 [Moles/Vol] 25 mmol/L Normal 22-32 [facility] Comment on above: Performed By: #### B MP, ADIFF, ANEU, GFR, CBC, APTT #### [address] [address] Creatinine [Mass/Vol] 0.90 mg/dL Normal 0.60-1.40 [facility] Comment on above: Result Comment: Test ing performed on [employer] analyzer using enzymatic creatinine methodology. Performed By: #### B MP, ADIFF, ANEU, GFR, CBC, APTT #### [address] [address] Electrolyte Balance 7.0 mEq/L Normal 4.0-15.0 [facility] Comment on above: Performed By: #### B MP, ADIFF, ANEU, GFR, CBC, APTT #### [address] [address] Glucose [Mass/Vol] 118 mg/dL High 82-115 [facility] Comment on above: Performed By: #### B MP, ADIFF, ANEU, GFR, CBC, APTT #### [address] [address] Potassium [Moles/Vol] 3.8 mmol/L Normal 3.5-5.0 [facility] Comment on above: Performed By: #### B MP, ADIFF, ANEU, GFR, CBC, APTT #### [address] [address] Sodium [Moles/Vol] 140 mmol/L Normal 136-145 [facility] Comment on above: Performed By: #### B MP, ADIFF, ANEU, GFR, CBC, APTT #### [address] [address] Urea nitrogen [Mass/Vol] 21.0 mg/dL Normal 8.0-22.0 [facility] Comment on above: Performed By: #### B MP, ADIFF, ANEU, GFR, CBC, APTT #### [place] [address] CBCon 04-23-2024 Erythrocyte distribution width (RBC) [Ratio] 14.5 % Normal 11.5-15.5 [facility] Comment on above: Performed By: #### B MP, ADIFF, ANEU, GFR, CBC, APTT #### [place] [address] Hematocrit (Bld) [Volume fraction] 37.2 % Low 40.0-52.0 [facility] Comment on above: Performed By: #### B MP, ADIFF, ANEU, GFR, CBC, APTT #### [place] [address] Hgb 12.3 G/dL Low 13.0-17.5 [facility] Comment on above: Performed By: #### B MP, ADIFF, ANEU, GFR, CBC, APTT #### [place] [address] MCH (RBC) [Entitic mass] 30.6 pg Normal 27.0-33.0 [facility] Comment on above: Performed By: #### B MP, ADIFF, ANEU, GFR, CBC, APTT #### [place] [address] MCHC 33.0 G/dL Normal 32.0-36.0 [facility] Comment on above: Performed By: #### B MP, ADIFF, ANEU, GFR, CBC, APTT #### [place] [address] MCV (RBC) [Entitic vol] 92.7 fL Normal 81.0-100.0 [facility] Comment on above: Performed By: #### B MP, ADIFF, ANEU, GFR, CBC, APTT #### [place] [address] Platelet 231 10 3/mcL Normal 150-450 [facility] Comment on above: Performed By: #### B MP, ADIFF, ANEU, GFR, CBC, APTT #### [place] [address] Platelet mean volume (Bld) [Entitic vol] 7.7 fL Normal 6.4-10.5 [facility] Comment on above: Performed By: #### B MP, ADIFF, ANEU, GFR, CBC, APTT #### [facility] [address] [place] [address] RBC 4.02 10 6/mcL Low 4.50-6.00 [facility] Comment on above: Performed By: #### B MP, ADIFF, ANEU, GFR, CBC, APTT #### [facility] [address] [place], [place] [id number] WBC 11.2 10 3/mcL High 4.5-10.8 [facility] Comment on above: Performed By: #### B MP, ADIFF, ANEU, GFR, CBC, APTT #### [facility] [address] [place] [address] HEAD OR BRAIN W/O CONTRAS Ton 04-23-2024 CT HEAD OR BRAIN W/O CONTRAST ORIGINAL EXAMINATION: CT OF THE HEAD WITHOUT CONTRAST 04/23/2024 11:50 am TECHNIQUE: CT of the head was performed without the administration of intravenous contrast. Automated exposure control, iterative reconstruction, and/or weight based adjustment of the mA/kV was utilized to reduce the radiation dose to as low as reasonably achievable. COMPARISON: April 22, 2024 HISTORY: ORDERING SYSTEM PROVIDED HISTORY: Reason for Exam: severe headache, IPH on heparin by weight FINDINGS: Lobulated mucosal thickening is evident within the left maxillary sinus. No calvarial abnormality seen. Right parieto-occipital parenchymal hemorrhage is again identified, and the appearance is very similar to the previous study. The bulk of the lesion is on the order of 4 cm, previously 4.2 cm. Surrounding white matter hypodensity is most compatible with vasogenic edema. Mild local mass effect is evident. This includes sulcal effacement. A small amount of subarachnoid blood is evident at the parietal regions bilaterally and this is similar to the previous study. No new area of hemorrhage is identified on this exam. No other interval change is evident. IMPRESSION: Intracranial hemorrhage is very similar to the previous exam including mild local mass effect. Interpreted by: Luis Beaulieu MD Preliminary Report By: Luis Beaulieu MD Electronically signed By Luis Beaulieu MD Dictated Date: 04/23/2024 11:56:54 AM Prelim Date: 04/23/2024 12:00:03 PM Sign Date: 04/23/2024 12:00:03 PM Ordering Provider: PATRICIA [facility] MAIN LABORATORYOrdered By: SYSTEM SYSTEM on 04-23-2024 Basophils (Bld) [#/Vol] 0.1 103/mcL Normal 0.0 - 0.3 10^3/mcL AH Workflow SS Basophils/100 WBC (Bld) 0.7 % Normal 0.0 - 2.5 % AH Workflow SS Calcium [Mass/Vol] 9.0 mg/dL Normal 8.7 - 10. 4 mg/dL ADM SS Chloride [Moles/Vol] 108 mmol/L Normal 98 - 11 0 mEq/L ADM SS CO2 [Moles/Vol] 25 mmol/L Normal 22 - 32 mEq/L ADM SS Creatinine [Mass/Vol] 0.90 mg/dL Normal 0.60 - 1.40 mg/dL ADM SS Comment on above: Interpretive Data: T esting performed on G2 Crowd analyzer using enzymatic creatinine methodology. Electrolyte Balance 7.0 mEq/L Normal 4.0 - 15 .0 mEq/L ADM SS Eosinophils (Bld) [#/Vol] 0.0 103/mcL Normal 0.0 - 0.7 10^3/mcL Workflow SS Eosinophils/100 WBC (Bld) 0.0 % Normal 0.0 - 6.0 % AH Workflow SS Erythrocyte distribution width (RBC) [Ratio] 14.5 % Normal 11.5 - 15.5 % AH Workflow SS GFR/1.73 sq M.predicted among blacks MDRD (S/P/Bld) [Vol rate/Area] ml/min/1.73sqm Invalid Interpretation Code ADM SS Comment on above: Interpretive Data: GFR Population mean for , Non- Americans Ages 20-29 = 116 mL/min/1.73 sq.m. Ages 30-39 = 107 mL/min/1.73 sq.m. Ages 40-49 = 99 mL/min/1.73 sq.m. Ages 50-59 = 93 mL/min/1.73 sq.m. Ages 60-69 = 85 mL/min/1.73 sq.m. Ages 70+ = 75 mL/min/1.73 sq.m. Chronic Kidney Disease: Less than 60 mL/min/1.73 square meters End Stage Renal Disease: Less than 15 mL/min/1.73 square meters GFR/1.73 sq M.predicted among non-blacks MDRD (S/P/Bld) [Vol rate/Area] ml/min/1.73sqm Invalid Interpretation Code ADM SS Comment on above: Interpretive Data: GFR Population mean for , Non- Americans Ages 20-29 = 116 mL/min/1.73 sq.m. Ages 30-39 = 107 mL/min/1.73 sq.m. Ages 40-49 = 99 mL/min/1.73 sq.m. Ages 50-59 = 93 mL/min/1.73 sq.m. Ages 60-69 = 85 mL/min/1.73 sq.m. Ages 70+ = 75 mL/min/1.73 sq.m. Chronic Kidney Disease: Less than 60 mL/min/1.73 square meters End Stage Renal Disease: Less than 15 mL/min/1.73 square meters Glucose [Mass/Vol] 118 mg/dL High 82 - 115 mg/dL ADM SS Hematocrit (Bld) [Volume fraction] 37.2 % Low 40.0 - 52.0 % AH Workflow SS Hemoglobin (Bld) [Mass/Vol] 12.3 G/dL Low 13.0 - 17.5 G/dL AH Workflow SS Lymphocytes (Bld) [#/Vol] 1.2 103/mcL Normal 0.9 - 4.3 10^3/mcL AH Workflow SS Lymphocytes/100 WBC (Bld) 11.0 % Low 20.0 - 40.0 % AH Workflow SS MCH (RBC) [Entitic mass] 30.6 pg Normal 27.0 - 33.0 pg AH Workflow SS MCHC 33.0 G/dL Normal 32.0 - 36.0 G/dL AH Workflow SS MCV (RBC) [Entitic vol] 92.7 fL Normal 81.0 - 100.0 fL AH Workflow SS Monocytes (Bld) [#/Vol] 1.0 103/mcL Normal 0.1 - 1.4 10^3/mcL AH Workflow SS Monocytes/100 WBC (Bld) 8.6 % Normal 2.0 - 13.0 % AH Workflow SS Neutrophils (Bld) [#/Vol] 8.9 103/mcL High 2.3 - 8.1 10^3/mcL Workflow SS Neutrophils/100 WBC (Bld) 79.7 % High 50.0 - 75.0 % Workflow SS Platelet mean volume (Bld) [Entitic vol] 7.7 fL Normal 6.4 - 10.5 fL AH Workflow SS Platelets (Bld) [#/Vol] 231 103/mcL Normal 150 - 450 10^3/mcL AH Workflow SS Potassium [Moles/Vol] 3.8 mmol/L Normal 3.5 - 5.0 mEq/L ADM SS RBC (Bld) [#/Vol] 4.02 106/mcL Low 4.50 - 6.0 0 10^6/mcL Workflow SS Sodium [Moles/Vol] 140 mmol/L Normal 136 - 145 mEq/L ADM SS Urea nitrogen [Mass/Vol] 21.0 mg/dL Normal 8.0 - 22.0 mg/dL ADM SS Urea nitrogen/Creatinine [Mass ratio] 23.3 ratio High 10.0 - 22.0 ratio ADM SS WBC (Bld) [#/Vol] 11.2 103/mcL High 4.5 - 10.8 10^3/mcL Workflow SS .Auto Diffon 04-22-2024 Basophil, Absolute 0.1 10 3/mcL Normal 0.0-0.3 [facility] Comment on above: Performed By: #### B MP, ADIFF, ANEU, GFR, CBC, APTT #### [place] [address] [place] [address] Basophils/100 WBC (Bld) 0.4 % Normal 0.0-2.5 [facility] Comment on above: Performed By: #### B MP, ADIFF, ANEU, GFR, CBC, APTT #### [facility] [address] [place] [address] Eosinophil, Absolute 0.0 10 3/mcL Normal 0.0-0.7 [facility] Comment on above: Performed By: #### B MP, ADIFF, ANEU, GFR, CBC, APTT #### [facility] [address] [place] [address] Eosinophils/100 WBC (Bld) 0.0 % Normal 0.0-6.0 [facility] Comment on above: Performed By: #### B MP, ADIFF, ANEU, GFR, CBC, APTT #### [address] [address] Lymphocyte, Absolute 1.1 10 3/mcL Normal 0.9-4.3 [facility] Comment on above: Performed By: #### B MP, ADIFF, ANEU, GFR, CBC, APTT #### [address] [address] Lymphocytes/100 WBC (Bld) 8.9 % Low 20.0-40.0 [facility] Comment on above: Performed By: #### B MP, ADIFF, ANEU, GFR, CBC, APTT #### [address] [address] Monocyte, Absolute 0.9 10 3/mcL Normal 0.1-1.4 [facility] Comment on above: Performed By: #### B MP, ADIFF, ANEU, GFR, CBC, APTT #### [address] [address] Monocytes/100 WBC (Bld) 7.3 % Normal 2.0-13.0 [facility] Comment on above: Performed By: #### B MP, ADIFF, ANEU, GFR, CBC, APTT #### [address] [address] Neutrophils/100 WBC (Bld) 83.4 % High 50.0-75.0 [facility] Comment on above: Performed By: #### B MP, ADIFF, ANEU, GFR, CBC, APTT #### [address] [address] .GFRon 04-22-2024 GFR >60 Normal [facility] MA[facility] Comment on above: Result Comment: GFR Population mean for , Non- Americans Ages 20-29 = 116 mL/min/1.73 sq.m. Ages 30-39 = 107 mL/min/1.73 sq.m. Ages 40-49 = 99 mL/min/1.73 sq.m. Ages 50-59 = 93 mL/min/1.73 sq.m. Ages 60-69 = 85 mL/min/1.73 sq.m. Ages 70+ = 75 mL/min/1.73 sq.m. Chronic Kidney Disease: Less than 60 mL/min/1.73 square meters End Stage Renal Disease: Less than 15 mL/min/1.73 square meters Performed By: #### B MP, ADIFF, ANEU, GFR, CBC, APTT #### [address] [address] GFR Non- >60 Normal [facility] Comment on above: Result Comment: GFR Population mean for , Non- Americans Ages 20-29 = 116 mL/min/1.73 sq.m. Ages 30-39 = 107 mL/min/1.73 sq.m. Ages 40-49 = 99 mL/min/1.73 sq.m. Ages 50-59 = 93 mL/min/1.73 sq.m. Ages 60-69 = 85 mL/min/1.73 sq.m. Ages 70+ = 75 mL/min/1.73 sq.m. Chronic Kidney Disease: Less than 60 mL/min/1.73 square meters End Stage Renal Disease: Less than 15 mL/min/1.73 square meters Performed By: #### B MP, ADIFF, ANEU, GFR, CBC, APTT #### [address] [address] .NEUABSon 04-22-2024 Neutrophil, Absolute 10.7 10 3/mcL High 2.3-8.1 [facility] Comment on above: Performed By: #### B MP, ADIFF, ANEU, GFR, CBC, APTT #### [address] [address] APTTon 04-22-2024 aPTT Coag (Bld) [Time] 45.6 s High 25.0-35.0 [facility] Comment on above: Result Comment: For Heparin anticoagulation therapy, the recommended therapeutic range is: 54-77 seconds (APTT Correlation with Anti-Xa therapeutic range of 0.3-0.7 units/ml). PLEASE REFERENCE THE PHARMACY PROTOCOL FOR DOSING. Performed By: #### B MP, ADIFF, ANEU, GFR, CBC, APTT #### [address] [address] aPTT Coag (Bld) [Time] 34.7 s Normal 25.0-35.0 [facility] Comment on above: Result Comment: For Heparin anticoagulation therapy, the recommended therapeutic range is: 54-77 seconds (APTT Correlation with Anti-Xa therapeutic range of 0.3-0.7 units/ml). PLEASE REFERENCE THE PHARMACY PROTOCOL FOR DOSING. Performed By: #### A PTT #### [address] [address] aPTT Coag (Bld) [Time] 52.5 s High 25.0-35.0 [facility] Comment on above: Result Comment: For Heparin anticoagulation therapy, the recommended therapeutic range is: 54-77 seconds (APTT Correlation with Anti-Xa therapeutic range of 0.3-0.7 units/ml). PLEASE REFERENCE THE PHARMACY PROTOCOL FOR DOSING. Performed By: #### B MP, ADIFF, ANEU, GFR, CBC, APTT #### [address] [address] aPTT Coag (Bld) [Time] 47.0 s High 25.0-35.0 [facility] Comment on above: Result Comment: For Heparin anticoagulation therapy, the recommended therapeutic range is: 54-77 seconds (APTT Correlation with Anti-Xa therapeutic range of 0.3-0.7 units/ml). PLEASE REFERENCE THE PHARMACY PROTOCOL FOR DOSING. Performed By: #### B MP, ADIFF, ANEU, GFR, CBC, APTT #### [address] [address] [facility] BUN/Creatinine Ratio 21.9 ratio Normal 10.0-22.0 [facility] Comment on above: Performed By: #### B MP, ADIFF, ANEU, GFR, CBC, APTT #### [address] [address] Calcium [Mass/Vol] 8.8 mg/dL Normal 8.7-10.4 [facility] Comment on above: Performed By: #### B MP, ADIFF, ANEU, GFR, CBC, APTT #### [address] [address] Chloride [Moles/Vol] 113 mmol/L High 98-110 [facility] Comment on above: Performed By: #### B MP, ADIFF, ANEU, GFR, CBC, APTT #### [address] [address] CO2 [Moles/Vol] 22 mmol/L Normal 22-32 [facility] Comment on above: Performed By: #### B MP, ADIFF, ANEU, GFR, CBC, APTT #### [address] [address] Creatinine [Mass/Vol] 0.96 mg/dL Normal 0.60-1.40 [facility] Comment on above: Result Comment: Test ing performed on G2 Crowd analyzer using enzymatic creatinine methodology. Performed By: #### B MP, ADIFF, ANEU, GFR, CBC, APTT #### [address] [address] Electrolyte Balance 6.0 mEq/L Normal 4.0-15.0 [facility] Comment on above: Performed By: #### B MP, ADIFF, ANEU, GFR, CBC, APTT #### [address] [address] Glucose [Mass/Vol] 129 mg/dL High 82-115 [facility] Comment on above: Performed By: #### B MP, ADIFF, ANEU, GFR, CBC, APTT #### [address] [address] Potassium [Moles/Vol] 4.2 mmol/L Normal 3.5-5.0 [facility] MA[facility] Comment on above: Result Comment: Spec imen slightly hemolyzed. Performed By: #### B MP, ADIFF, ANEU, GFR, CBC, APTT #### [address] [address] Sodium [Moles/Vol] 141 mmol/L Normal 136-145 [facility] Comment on above: Performed By: #### B MP, ADIFF, ANEU, GFR, CBC, APTT #### [address] [address] Urea nitrogen [Mass/Vol] 21.0 mg/dL Normal 8.0-22.0 [facility] Comment on above: Performed By: #### B MP, ADIFF, ANEU, GFR, CBC, APTT #### [address] [address] CBCon 04-22-2024 Erythrocyte distribution width (RBC) [Ratio] 15.3 % Normal 11.5-15.5 [facility] Comment on above: Performed By: #### B MP, ADIFF, ANEU, GFR, CBC, APTT #### [place] [address] Hematocrit (Bld) [Volume fraction] 37.6 % Low 40.0-52.0 [facility] Comment on above: Performed By: #### B MP, ADIFF, ANEU, GFR, CBC, APTT #### [place] [address] Hgb 12.4 G/dL Low 13.0-17.5 [facility] Comment on above: Performed By: #### B MP, ADIFF, ANEU, GFR, CBC, APTT #### [address] [address] MCH (RBC) [Entitic mass] 30.9 pg Normal 27.0-33.0 [facility] Comment on above: Performed By: #### B MP, ADIFF, ANEU, GFR, CBC, APTT #### [place] [id number] MCHC 33.1 G/dL Normal 32.0-36.0 [facility] Comment on above: Performed By: #### B MP, ADIFF, ANEU, GFR, CBC, APTT #### [place] [address] MCV (RBC) [Entitic vol] 93.4 fL Normal 81.0-100.0 [facility] Comment on above: Performed By: #### B MP, ADIFF, ANEU, GFR, CBC, APTT #### [place] [id number] Platelet 247 10 3/mcL Normal 150-450 [facility] Comment on above: Performed By: #### B MP, ADIFF, ANEU, GFR, CBC, APTT #### [place] [address] [place] [address] Platelet mean volume (Bld) [Entitic vol] 7.9 fL Normal 6.4-10.5 [facility] Comment on above: Performed By: #### B MP, ADIFF, ANEU, GFR, CBC, APTT #### [place] [address] [place], [place] [id number] RBC 4.02 10 6/mcL Low 4.50-6.00 [facility] Comment on above: Performed By: #### B MP, ADIFF, ANEU, GFR, CBC, APTT #### [place] [address] [place], [place] [id number] WBC 12.8 10 3/mcL High 4.5-10.8 [facility] Comment on above: Performed By: #### B MP, ADIFF, ANEU, GFR, CBC, APTT #### [place] [address] CT HEAD OR BRAIN W/O CONTRAS Ton 04-22-2024 CT HEAD OR BRAIN W/O CONTRAST ORIGINAL EXAMINATION: CT OF THE HEAD WITHOUT CONTRAST 04/22/2024 4:33 am TECHNIQUE: CT of the head was performed without the administration of intravenous contrast. Automated exposure control, iterative reconstruction, and/or weight based adjustment of the mA/kV was utilized to reduce the radiation dose to as low as reasonably achievable. COMPARISON: CT head 04/21/2024 and 04/20/2024. HISTORY: ORDERING SYSTEM PROVIDED HISTORY: Reason for Exam: IPH, SAH; Re-eval after HBW initiation 04/21 FINDINGS: BRAIN/VENTRICLES: Similar-appearing right parietal centered intraparenchymal hematoma with extra-axial and intraventricular extension. Similar appearing mass effect. Redemonstrated subarachnoid blood products bilaterally. There is no evidence of hydrocephalus. ORBITS: The visualized portion of the orbits demonstrate no acute abnormality. SINUSES: Mild left maxillary sinus mucosal thickening. The remaining visualized paranasal sinuses and mastoid air cells are essentially clear. SOFT TISSUES/SKULL: No acute abnormality of the visualized skull or soft tissues. IMPRESSION: No significant interval change from previous exam. I have personally reviewed the images of this examination and agree with the resident's findings and interpretation. Interpreted by: Davin Gagnon MD Preliminary Report By: Laurence Don Electronically signed By Davin Gagnon MD Dictated Date: 04/22/2024 4:57:38 AM Prelim Date: 04/22/2024 5:03:51 AM Sign Date: 04/22/2024 6:33:55 AM Ordering Provider: DBEBI MOSELEY [facility] MAIN LABORATORYOrdered By: SYSTEM SYSTEM on 04-22-2024 Troponin I.cardiac DL <= 0.01 ng/mL [Mass/Vol] 105 ng/L High 0 - 54 ng/L AH ADM SS Comment on above: Interpretive Data: High Sensitive Troponin I Reference Ranges: Female: 0-34 ng/L Male: 0-54 ng/L Testing performed on Brain[employer] IM analyzer using direct chemiluminescent technology. [facility] 04-22-2024 High Sensitivity Troponin I 105 ng/L High 0-54 [facility] Comment on above: Result Comment: High Sensitive Troponin I Reference Ranges: Female: 0-34 ng/L Male: 0-54 ng/L Testing performed on [employer] IM analyzer using direct chemiluminescent technology. Performed By: #### B MP, ADIFF, ANEU, GFR, CBC, APTT #### [address] [address] .Auto Diffon 04-21-2024 Basophil, Absolute 0.0 10 3/mcL Normal 0.0-0.3 [facility] MAIN Comment on above: Performed By: #### B MP, ADIFF, ANEU, GFR, CBC, APTT #### [address] [address] Basophils/100 WBC (Bld) 0.4 % Normal 0.0-2.5 [facility] Comment on above: Performed By: #### B MP, ADIFF, ANEU, GFR, CBC, APTT #### [address] [address] Eosinophil, Absolute 0.0 10 3/mcL Normal 0.0-0.7 [facility] Comment on above: Performed By: #### B MP, ADIFF, ANEU, GFR, CBC, APTT #### [address] [address] Eosinophils/100 WBC (Bld) 0.0 % Normal 0.0-6.0 [facility] Comment on above: Performed By: #### B MP, ADIFF, ANEU, GFR, CBC, APTT #### [address] [address] Lymphocyte, Absolute 0.9 10 3/mcL Normal 0.9-4.3 [facility] Comment on above: Performed By: #### B MP, ADIFF, ANEU, GFR, CBC, APTT #### [address] [address] Lymphocytes/100 WBC (Bld) 6.5 % Low 20.0-40.0 [facility] Comment on above: Performed By: #### B MP, ADIFF, ANEU, GFR, CBC, APTT #### [address] [address] Monocyte, Absolute 0.8 10 3/mcL Normal 0.1-1.4 [facility] Comment on above: Performed By: #### B MP, ADIFF, ANEU, GFR, CBC, APTT #### [address] [address] Monocytes/100 WBC (Bld) 6.1 % Normal 2.0-13.0 [facility] Comment on above: Performed By: #### B MP, ADIFF, ANEU, GFR, CBC, APTT #### [address] [address] Neutrophils/100 WBC (Bld) 87.0 % High 50.0-75.0 [facility] Comment on above: Performed By: #### B MP, ADIFF, ANEU, GFR, CBC, APTT #### [address] [address] Basophil, Absolute 0.1 10 3/mcL Normal 0.0-0.3 [facility] MA[facility] Comment on above: Performed By: #### B MP, ADIFF, ANEU, GFR, CBC, APTT #### [address] [address] Basophils/100 WBC (Bld) 0.3 % Normal 0.0-2.5 [facility] Comment on above: Performed By: #### B MP, ADIFF, ANEU, GFR, CBC, APTT #### [address] [address] Eosinophil, Absolute 0.0 10 3/mcL Normal 0.0-0.7 [facility] Comment on above: Performed By: #### B MP, ADIFF, ANEU, GFR, CBC, APTT #### [address] [address] Eosinophils/100 WBC (Bld) 0.0 % Normal 0.0-6.0 [facility] Comment on above: Performed By: #### B MP, ADIFF, ANEU, GFR, CBC, APTT #### [address] [address] Lymphocyte, Absolute 0.9 10 3/mcL Normal 0.9-4.3 [facility] Comment on above: Performed By: #### B MP, ADIFF, ANEU, GFR, CBC, APTT #### [address] [address] Lymphocytes/100 WBC (Bld) 6.3 % Low 20.0-40.0 [facility] Comment on above: Performed By: #### B MP, ADIFF, ANEU, GFR, CBC, APTT #### [address] [address] Monocyte, Absolute 0.8 10 3/mcL Normal 0.1-1.4 [facility] Comment on above: Performed By: #### B MP, ADIFF, ANEU, GFR, CBC, APTT #### [address] [address] Monocytes/100 WBC (Bld) 5.2 % Normal 2.0-13.0 [facility] Comment on above: Performed By: #### B MP, ADIFF, ANEU, GFR, CBC, APTT #### [address] [address] Neutrophils/100 WBC (Bld) 88.2 % High 50.0-75.0 [facility] Comment on above: Performed By: #### B MP, ADIFF, ANEU, GFR, CBC, APTT #### [address] [address] .GFRon 04-21-2024 GFR >60 [facility] MAIN Comment on above: Result Comment: GFR Population mean for , Non- Americans Ages 20-29 = 116 mL/min/1.73 sq.m. Ages 30-39 = 107 mL/min/1.73 sq.m. Ages 40-49 = 99 mL/min/1.73 sq.m. Ages 50-59 = 93 mL/min/1.73 sq.m. Ages 60-69 = 85 mL/min/1.73 sq.m. Ages 70+ = 75 mL/min/1.73 sq.m. Chronic Kidney Disease: Less than 60 mL/min/1.73 square meters End Stage Renal Disease: Less than 15 mL/min/1.73 square meters Performed By: #### B MP, ADIFF, ANEU, GFR, CBC, APTT #### [place] [address] GFR Non- >60 [facility] MAIN Comment on above: Result Comment: GFR Population mean for , Non- Americans Ages 20-29 = 116 mL/min/1.73 sq.m. Ages 30-39 = 107 mL/min/1.73 sq.m. Ages 40-49 = 99 mL/min/1.73 sq.m. Ages 50-59 = 93 mL/min/1.73 sq.m. Ages 60-69 = 85 mL/min/1.73 sq.m. Ages 70+ = 75 mL/min/1.73 sq.m. Chronic Kidney Disease: Less than 60 mL/min/1.73 square meters End Stage Renal Disease: Less than 15 mL/min/1.73 square meters Performed By: #### B MP, ADIFF, ANEU, GFR, CBC, APTT #### [address] [address] .NEUABSon 04-21-2024 Neutrophil, Absolute 11.8 10 3/mcL High 2.3-8.1 [facility] Comment on above: Performed By: #### B MP, ADIFF, ANEU, GFR, CBC, APTT #### [place] [id number] [place] [id number] Neutrophil, Absolute 13.0 10 3/mcL High 2.3-8.1 [facility] Comment on above: Performed By: #### B MP, ADIFF, ANEU, GFR, CBC, APTT #### [address] [address] APTTon 04-21-2024 aPTT Coag (Bld) [Time] 46.1 s High 25.0-35.0 [facility] Comment on above: Result Comment: For Heparin anticoagulation therapy, the recommended therapeutic range is: 54-77 seconds (APTT Correlation with Anti-Xa therapeutic range of 0.3-0.7 units/ml). PLEASE REFERENCE THE PHARMACY PROTOCOL FOR DOSING. Performed By: #### B MP, ADIFF, ANEU, GFR, CBC, APTT #### [place] [id number] aPTT Coag (Bld) [Time] 31.3 s Normal 25.0-35.0 [facility] Comment on above: Result Comment: For Heparin anticoagulation therapy, the recommended therapeutic range is: 54-77 seconds (APTT Correlation with Anti-Xa therapeutic range of 0.3-0.7 units/ml). PLEASE REFERENCE THE PHARMACY PROTOCOL FOR DOSING. Performed By: #### B MP, ADIFF, ANEU, GFR, CBC, APTT #### [address] [address] BGon 04-21-2024 Base excess Calc (Bld) [Moles/Vol] -5.0000 mmol/L Normal [facility] Comment on above: Performed By: #### B MP, ADIFF, ANEU, GFR, CBC, APTT #### [address] [address] Oxygen saturation in Blood 95.1 % Normal 92.0-96.0 [facility] Comment on above: Performed By: #### B MP, ADIFF, ANEU, GFR, CBC, APTT #### [place] [id number] pCO2 26.9 mmHg Low 32.0-46.0 [facility] Comment on above: Performed By: #### B MP, ADIFF, ANEU, GFR, CBC, APTT #### [place] [address] BGOrdered By: Adamaris Newman on 04-21-2024 CO2 [Moles/Vol] 18.4 mmol/L Low 22.0-30.0 [facility] SS Comment on above: Performed By: #### B MP, ADIFF, ANEU, GFR, CBC, APTT #### [place] [address] HCO3 (Bld) [Moles/Vol] 17.6 mmol/L Low 21.0-29.0 [facility] SS Comment on above: Performed By: #### B MP, ADIFF, ANEU, GFR, CBC, APTT #### [place] [address] Oxygen (Bld) [Partial pressure] 75.6 mm[Hg] Normal 74.0-108.0 [facility] SS Comment on above: Performed By: #### B MP, ADIFF, ANEU, GFR, CBC, APTT #### [place] [address] pH (Bld) 7.434 [pH] Normal 7.380-7.460 Main [facility] SS Comment on above: Performed By: #### B MP, ADIFF, ANEU, GFR, CBC, APTT #### [place] [id number] BMPon 04-21-2024 BUN/Creatinine Ratio 21.3 ratio Normal 10.0-22.0 [facility] Comment on above: Performed By: #### B MP, ADIFF, ANEU, GFR, CBC, APTT #### [place] [address] Calcium [Mass/Vol] 8.8 mg/dL Normal 8.7-10.4 [facility] Comment on above: Performed By: #### B MP, ADIFF, ANEU, GFR, CBC, APTT #### [place] [address] Chloride [Moles/Vol] 112 mmol/L High 98-110 [facility] MA[facility] Comment on above: Performed By: #### B MP, ADIFF, ANEU, GFR, CBC, APTT #### [address] [address] CO2 [Moles/Vol] 20 mmol/L Low 22-32 [facility] Comment on above: Performed By: #### B MP, ADIFF, ANEU, GFR, CBC, APTT #### [address] [address] Creatinine [Mass/Vol] 1.08 mg/dL Normal 0.60-1.40 [facility] MA[facility] Comment on above: Result Comment: Test ing performed on G2 Crowd analyzer using enzymatic creatinine methodology. Performed By: #### B MP, ADIFF, ANEU, GFR, CBC, APTT #### [address] [address] Electrolyte Balance 10.0 mEq/L Normal 4.0-15.0 [facility] Comment on above: Performed By: #### B MP, ADIFF, ANEU, GFR, CBC, APTT #### [address] [address] Glucose [Mass/Vol] 129 mg/dL High 82-115 [facility] Comment on above: Performed By: #### B MP, ADIFF, ANEU, GFR, CBC, APTT #### [address] [address] Potassium [Moles/Vol] 3.8 mmol/L Normal 3.5-5.0 [facility] MA[facility] Comment on above: Performed By: #### B MP, ADIFF, ANEU, GFR, CBC, APTT #### [address] [address] Sodium [Moles/Vol] 142 mmol/L Normal 136-145 [facility] Comment on above: Performed By: #### B MP, ADIFF, ANEU, GFR, CBC, APTT #### [address] [address] Urea nitrogen [Mass/Vol] 23.0 mg/dL High 8.0-22.0 [facility] Comment on above: Performed By: #### B MP, ADIFF, ANEU, GFR, CBC, APTT #### [place] [id number] CBCon 04-21-2024 Erythrocyte distribution width (RBC) [Ratio] 14.9 % Normal 11.5-15.5 [facility] Comment on above: Performed By: #### B MP, ADIFF, ANEU, GFR, CBC, APTT #### [place] [address] Hematocrit (Bld) [Volume fraction] 41.1 % Normal 40.0-52.0 [facility] Comment on above: Performed By: #### B MP, ADIFF, ANEU, GFR, CBC, APTT #### [place] [address] Hgb 13.3 G/dL Normal 13.0-17.5 [facility] Comment on above: Performed By: #### B MP, ADIFF, ANEU, GFR, CBC, APTT #### [place] [address] MCH (RBC) [Entitic mass] 30.0 pg Normal 27.0-33.0 [facility] Comment on above: Performed By: #### B MP, ADIFF, ANEU, GFR, CBC, APTT #### [place] [id number] MCHC 32.4 G/dL Normal 32.0-36.0 [facility] Comment on above: Performed By: #### B MP, ADIFF, ANEU, GFR, CBC, APTT #### [place] [address] MCV (RBC) [Entitic vol] 92.5 fL Normal 81.0-100.0 [facility] Comment on above: Performed By: #### B MP, ADIFF, ANEU, GFR, CBC, APTT #### [place] [id number] Platelet 262 10 3/mcL Normal 150-450 [facility] Comment on above: Performed By: #### B MP, ADIFF, ANEU, GFR, CBC, APTT #### [place] [address] Platelet mean volume (Bld) [Entitic vol] 7.4 fL Normal 6.4-10.5 [facility] Comment on above: Performed By: #### B MP, ADIFF, ANEU, GFR, CBC, APTT #### [place] [address] RBC 4.44 10 6/mcL Low 4.50-6.00 [facility] Comment on above: Performed By: #### B MP, ADIFF, ANEU, GFR, CBC, APTT #### [place] [address] WBC 13.6 10 3/mcL High 4.5-10.8 [facility] Comment on above: Performed By: #### B MP, ADIFF, ANEU, GFR, CBC, APTT #### [place] [address] Erythrocyte distribution width (RBC) [Ratio] 14.5 % Normal 11.5-15.5 [facility] Comment on above: Performed By: #### B MP, ADIFF, ANEU, GFR, CBC, APTT #### [place] [address] Hematocrit (Bld) [Volume fraction] 40.4 % Normal 40.0-52.0 [facility] Comment on above: Performed By: #### B MP, ADIFF, ANEU, GFR, CBC, APTT #### [place] [address] Hgb 13.3 G/dL Normal 13.0-17.5 [facility] Comment on above: Performed By: #### B MP, ADIFF, ANEU, GFR, CBC, APTT #### [place] [address] MCH (RBC) [Entitic mass] 30.3 pg Normal 27.0-33.0 [facility] Comment on above: Performed By: #### B MP, ADIFF, ANEU, GFR, CBC, APTT #### [place] [address] MCHC 33.0 G/dL Normal 32.0-36.0 [facility] Comment on above: Performed By: #### B MP, ADIFF, ANEU, GFR, CBC, APTT #### [place] [address] MCV (RBC) [Entitic vol] 91.8 fL Normal 81.0-100.0 [facility] Comment on above: Performed By: #### B MP, ADIFF, ANEU, GFR, CBC, APTT #### [place] [address] Platelet 256 10 3/mcL Normal 150-450 [facility] Comment on above: Performed By: #### B MP, ADIFF, ANEU, GFR, CBC, APTT #### [place] [address] Platelet mean volume (Bld) [Entitic vol] 7.8 fL Normal 6.4-10.5 [facility] Comment on above: Performed By: #### B MP, ADIFF, ANEU, GFR, CBC, APTT #### [place] [address] RBC 4.40 10 6/mcL Low 4.50-6.00 [facility] Comment on above: Performed By: #### B MP, ADIFF, ANEU, GFR, CBC, APTT #### [place] [address] WBC 14.7 10 3/mcL High 4.5-10.8 [facility] Comment on above: Performed By: #### B MP, ADIFF, ANEU, GFR, CBC, APTT #### [place] [address] CT HEAD OR BRAIN W/O CONTRAS Ton 04-21-2024 CT HEAD OR BRAIN W/O CONTRAST ORIGINAL EXAMINATION: CT OF THE HEAD WITHOUT CONTRAST 04/21/2024 8:21 pm TECHNIQUE: CT of the head was performed without the administration of intravenous contrast. Automated exposure control, iterative reconstruction, and/or weight based adjustment of the mA/kV was utilized to reduce the radiation dose to as low as reasonably achievable. COMPARISON: CT head performed same day. HISTORY: ORDERING SYSTEM PROVIDED HISTORY: Reason for Exam: HEADACHE, KNOWN ICH, increased headache, brain bleed FINDINGS: BRAIN/VENTRICLES: No significant change to the right parietal lobe centered intraparenchymal hematoma with extra-axial and intraventricular extension. Similar appearing mass effect. Redemonstrated subarachnoid blood products bilaterally. Similar ventricular caliber. ORBITS: The visualized portion of the orbits demonstrate no acute abnormality. SINUSES: The visualized paranasal sinuses and mastoid air cells demonstrate no acute abnormality. SOFT TISSUES/SKULL: No acute abnormality of the visualized skull or soft tissues. IMPRESSION: No significant change from prior exam. Interpreted by: Hector Celeste Preliminary Report By: Hector Celeste Electronically signed By Hector Celeste Dictated Date: 04/21/2024 8:22:50 PM Prelim Date: 04/21/2024 8:30:51 PM Sign Date: 04/21/2024 8:30:51 PM Ordering Provider: BARRIE FANG [facility] MAIN CT HEAD OR BRAIN W/O CONTRAST ORIGINAL EXAMINATION: CT OF THE HEAD WITHOUT CONTRAST 04/21/2024 5:27 am TECHNIQUE: CT of the head was performed without the administration of intravenous contrast. Automated exposure control, iterative reconstruction, and/or weight based adjustment of the mA/kV was utilized to reduce the radiation dose to as low as reasonably achievable. COMPARISON: CT head 04/20/2024 HISTORY: ORDERING SYSTEM PROVIDED HISTORY: Reason for Exam: f/u ICH FINDINGS: BRAIN/VENTRICLES: There is a similar appearing 4.6 cm right parietal intraparenchymal hematoma with surrounding low attenuation likely representing edema. Hemorrhage is present within the atrium of the right lateral ventricle. There is a small amount of adjacent subarachnoid hemorrhage overlying the right parietal lobe not significantly changed from previous exam. There is effacement of the right parietal sulci. No midline shift. New trace left parietal subarachnoid hemorrhage. There is no evidence of hydrocephalus. ORBITS: The visualized portion of the orbits demonstrate no acute abnormality. SINUSES: The visualized paranasal sinuses and mastoid air cells demonstrate no acute abnormality. SOFT TISSUES/SKULL: No acute abnormality of the visualized skull or soft tissues. IMPRESSION: Similar appearing right parietal intraparenchymal hematoma with intraventricular extension and trace subarachnoid hemorrhage with effacement of the adjacent sulci. No midline shift. New trace left parietal subarachnoid hemorrhage. Laurence Don MD called these results to May Jaeger RN at 05:49 on 04/21/2024. Preliminary Report was Dictated by a Resident Interpreted by: Davin Gagnon MD Preliminary Report By: Laurence Don Electronically signed By Davin Gagnon MD Dictated Date: 04/21/2024 5:33:40 AM Prelim Date: 04/21/2024 5:52:10 AM Sign Date: 04/21/2024 6:13:34 AM Ordering Provider: [facility] MAIN LABORATORYOrdered By: Milagro Sommer on 04-21-2024 Appearance (U) Clear (04/21/24 11:17 PM) Normal Clear AH Auto Urine SS Bilirubin Ql (U) Negative (04/21/24 11:17 PM) Normal Neg-Trace AH Auto Urine SS Color (U) Yellow (04/21/24 11:17 PM) Normal AH Auto Urine SS Glucose Test strip (U) [Mass/Vol] Negative Normal Negative AH Auto Urine SS Hemoglobin Auto test strip (U) [Mass/Vol] Negative (04/21/24 11:17 PM) Normal Neg-Trace AH Auto Urine SS Ketones Ql (U) Negative Normal Neg-Trace AH Auto Urine SS UA Leuk Est Trace *NA* (04/21/24 11:17 PM) Invalid Interpretation Code Negative AH Auto Urine SS UA Nitrite Negative (04/21/24 11:17 PM) Normal Negative AH Auto Urine SS UA pH 5.5 (04/21/24 11:17 PM) Normal 5.0 - 8.0 AH Auto Urine SS UA Protein Negative Normal Negative AH Auto Urine SS UA Spec Grav >=1.030 *ABN* (04/21/24 11:17 PM) Invalid Interpretation Code 1.006-1.029 AH Auto Urine SS UA Specimen Type Rosenthal Catheter (04/21/24 11:17 PM) Normal AH Auto Urine SS UA Urobilinogen 0.2 E.U./dL Normal 0.2-1.0 AH Auto Urine SS LABORATORYOrdered By: SYSTEM SYSTEM on 04-21-2024 PT Coag (PPP) [Time] 12.4 s Normal 9.0 - 1 4.4 seconds AH [facility] SS Comment on above: Interpretive Data: E ffective 02/28/08, Protime results may be affected by some antibiotics (i.e. Ciprofloxacin, Azithromycin, Bactrim) which may potentiate the action of oral anticoagulants, with further increases in Protime/INR. PT International Ratio 1.1 ratio Invalid Interpretation Code [facility] SS Comment on above: Interpretive Data: Pilar campbell [employer] (CHEST, 1991, 102:[id number]) recommended therapeutic range for oral anticoagulant therapy is: LOW RISK: Prophylaxis of venous thrombosis INR: 2.0-3.0 Treatment of pulmonary embolism 2.0-3.0 Prevention of systemic embolism 2.0-3.0 HIGH RISK: Mechanical prosthetic valves 2.5-3.5 LABORATORYOrdered By: Adamaris francis on 04-21-2024 Base Excess -5.0 mmol/L Invalid Interpretation Code Main Rapid Comm SS pCO2 26.9 mm[Hg] Low 32.0 - 46.0 mm Hg Main Rapid Comm SS LABORATORYOrdered By: Marcio on 04-21-2024 Plt % Functional 20 % Low 80 - 97 % Hematology S Plt ADP 196 k/mm3 Invalid Interpretation Code Hematology S Plt Base 246 k/mm3 Invalid Interpretation Code Hematology S PLTFon 04-21-2024 Plt % Functional 20 % Low 80-97 [facility] Comment on above: Performed By: #### B MP, ADIFF, ANEU, GFR, CBC, APTT #### [address] [address] Plt ADP 196 k/mm3 [facility] MAIN Comment on above: Performed By: #### B MP, ADIFF, ANEU, GFR, CBC, APTT #### [address] [address] Plt Base 246 k/mm3 [facility] MAIN Comment on above: Performed By: #### B MP, ADIFF, ANEU, GFR, CBC, APTT #### [address] [address] PROon 04-21-2024 INR Coag (PPP) [Relative time] 1.1 {INR} [facility] MAIN Comment on above: Result Comment: [employer] (CHEST, 1991, 102:[id number]) recommended therapeutic range for oral anticoagulant therapy is: LOW RISK: Prophylaxis of venous thrombosis INR: 2.0-3.0 Treatment of pulmonary embolism 2.0-3.0 Prevention of systemic embolism 2.0-3.0 HIGH RISK: Mechanical prosthetic valves 2.5-3.5 Performed By: #### B MP, ADIFF, ANEU, GFR, CBC, APTT #### [address] [address] PT Coag (PPP) [Time] 12.4 s Normal 9.0-14.4 [facility] MAIN Comment on above: Result Comment: Effe ctive 02/28/08, Protime results may be affected by some antibiotics (i.e. Ciprofloxacin, Azithromycin, Bactrim) which may potentiate the action of oral anticoagulants, with further increases in Protime/INR. Performed By: #### B MP, ADIFF, ANEU, GFR, CBC, APTT #### [place] [address] UAon 04-21-2024 Color (U) Yellow Normal [facility] Comment on above: Performed By: #### B MP, ADIFF, ANEU, GFR, CBC, APTT #### [address] [address] Glucose (U) [Mass/Vol] Negative Normal Negative [facility] Comment on above: Performed By: #### B MP, ADIFF, ANEU, GFR, CBC, APTT #### [address] [address] Ketones Ql (U) Negative Normal Neg-Trace [facility] Comment on above: Performed By: #### B MP, ADIFF, ANEU, GFR, CBC, APTT #### [place] [id number] UA Appear Clear Normal Clear [facility] Comment on above: Performed By: #### B MP, ADIFF, ANEU, GFR, CBC, APTT #### [address] [address] UA Blood Negative Normal Neg-Trace [facility] Comment on above: Performed By: #### B MP, ADIFF, ANEU, GFR, CBC, APTT #### [address] [address] UA Leuk Est Trace Normal Negative [facility] Comment on above: Performed By: #### B MP, ADIFF, ANEU, GFR, CBC, APTT #### [address] [address] UA Nitrite Negative Normal Negative [facility] Comment on above: Performed By: #### B MP, ADIFF, ANEU, GFR, CBC, APTT #### [address] [address] UA pH 5.5 Normal 5.0 - 8.0 [facility] Comment on above: Performed By: #### B MP, ADIFF, ANEU, GFR, CBC, APTT #### [address] [address] UA Protein Negative Normal Negative [facility] Comment on above: Performed By: #### B MP, ADIFF, ANEU, GFR, CBC, APTT #### [address] [address] UA Spec Grav >=1.030 Abnormal 1.006-1.029 [facility] Comment on above: Performed By: #### B MP, ADIFF, ANEU, GFR, CBC, APTT #### [place] [address] UA Specimen Type Rosenthal Catheter Normal [facility] MAIN Comment on above: Performed By: #### B MP, ADIFF, ANEU, GFR, CBC, APTT #### [address] [address] UA Urobilinogen 0.2 E.U./dL Normal 0.2-1.0 [facility] Comment on above: Performed By: #### B MP, ADIFF, ANEU, GFR, CBC, APTT #### [place] [address] Urobilinogen (U) [Mass/Vol] Negative Normal Neg-Trace [facility] Comment on above: Performed By: #### B MP, ADIFF, ANEU, GFR, CBC, APTT #### [address] [address] .Auto Diffon 04-20-2024 Basophil, Absolute 0.1 10 3/mcL Normal 0.0-0.2 [facility] ([place]) Comment on above: Performed By: #### B MP, ANEU, PRO, CBC, GFR, ADIFF #### [address] [address] Basophils/100 WBC (Bld) 0.7 % Normal 0.0-2.5 [facility] ([place]) Comment on above: Performed By: #### B MP, ANEU, PRO, CBC, GFR, ADIFF #### [address] [address] Eosinophil, Absolute 0.2 10 3/mcL Normal 0.0-0.4 [facility] ([place]) Comment on above: Performed By: #### B MP, ANEU, PRO, CBC, GFR, ADIFF #### [address] [address] Eosinophils/100 WBC (Bld) 3.2 % Normal 0.0-7.0 [facility] ([place]) Comment on above: Performed By: #### B MP, ANEU, PRO, CBC, GFR, ADIFF #### [address] [address] Lymphocyte, Absolute 2.7 10 3/mcL Normal 0.8-3.9 [facility] ([place]) Comment on above: Performed By: #### B MP, ANEU, PRO, CBC, GFR, ADIFF #### [address] [address] Lymphocytes/100 WBC (Bld) 35.8 % Normal 10.0-50.0 [facility] ([place]) Comment on above: Performed By: #### B MP, ANEU, PRO, CBC, GFR, ADIFF #### [address] [address] Monocyte, Absolute 0.7 10 3/mcL Normal 0.2-1.0 [facility] ([place]) Comment on above: Performed By: #### B MP, ANEU, PRO, CBC, GFR, ADIFF #### [address] [address] Monocytes/100 WBC (Bld) 9.0 % Normal 1.7-13.0 [facility] ([place]) Comment on above: Performed By: #### B MP, ANEU, PRO, CBC, GFR, ADIFF #### [address] [address] Neutrophils/100 WBC (Bld) 51.3 % Normal 37.0-80.0 [facility] ([place]) Comment on above: Performed By: #### B MP, ANEU, PRO, CBC, GFR, ADIFF #### [address] [address] .GFRon 04-20-2024 GFR 68 ml/min/1.73sqm Normal [facility] ([place]) Comment on above: Result Comment: GFR Population mean for , Non- Americans Ages 20-29 = 116 mL/min/1.73 sq.m. Ages 30-39 = 107 mL/min/1.73 sq.m. Ages 40-49 = 99 mL/min/1.73 sq.m. Ages 50-59 = 93 mL/min/1.73 sq.m. Ages 60-69 = 85 mL/min/1.73 sq.m. Ages 70+ = 75 mL/min/1.73 sq.m. Chronic Kidney Disease: Less than 60 mL/min/1.73 square meters End Stage Renal Disease: Less than 15 mL/min/1.73 square meters Performed By: #### B MP, ANEU, PRO, CBC, GFR, ADIFF #### [address] [address] GFR Non- 56 ml/min/1.73sqm Normal [facility] ([place]) Comment on above: Result Comment: GFR Population mean for , Non- Americans Ages 20-29 = 116 mL/min/1.73 sq.m. Ages 30-39 = 107 mL/min/1.73 sq.m. Ages 40-49 = 99 mL/min/1.73 sq.m. Ages 50-59 = 93 mL/min/1.73 sq.m. Ages 60-69 = 85 mL/min/1.73 sq.m. Ages 70+ = 75 mL/min/1.73 sq.m. Chronic Kidney Disease: Less than 60 mL/min/1.73 square meters End Stage Renal Disease: Less than 15 mL/min/1.73 square meters Performed By: #### B MP, ANEU, PRO, CBC, GFR, ADIFF #### [address] [address] .MDWon 04-20-2024 Monocyte Distribution Width 18.17 Normal 0.00-20.00 [facility] ([place]) Comment on above: Result Comment: For ED adult patients suspected of sepsis, MDW<=20.0 does not rule out sepsis or risk of sepsis Performed By: #### B MP, ANEU, PRO, CBC, GFR, ADIFF #### [place] [address] .NEUABSon 04-20-2024 Neutrophil, Absolute 3.8 10 3/mcL Normal 2.9-6.2 [facility] ([place]) Comment on above: Performed By: #### B MP, ANEU, PRO, CBC, GFR, ADIFF #### [place] [address] ABO/Rh (Gel)on 04-20-2024 ABO/Rh Interp Negative Invalid Interpretation Code [facility] ([place]) Comment on above: Order Comment: Order ed by Discern Performed By: #### B MP, ANEU, PRO, CBC, GFR, ADIFF #### [place] [address] ABO/Rh Interp Negative Invalid Interpretation Code [facility]) Comment on above: Order Comment: Order ed by Discern Performed By: #### B MP, ANEU, PRO, CBC, GFR, ADIFF #### [place] [address] Susie 04-20-2024 Ethanol Level 4 mg/dL High 0-3 [facility] ([place]) Comment on above: Performed By: #### B MP, ANEU, PRO, CBC, GFR, ADIFF #### [place] [address] CBCon 04-20-2024 Erythrocyte distribution width (RBC) [Ratio] 14.3 % Normal 11.5-14.5 [facility] ([place]) Comment on above: Performed By: #### B MP, ANEU, PRO, CBC, GFR, ADIFF #### [address] [address] Hematocrit (Bld) [Volume fraction] 45.1 % Normal 42.0-52.0 [facility] ([place]) Comment on above: Performed By: #### B MP, ANEU, PRO, CBC, GFR, ADIFF #### [place] [id number] Hgb 15.0 G/dL Normal 14.0-18.0 [facility] ([place] Comment on above: Performed By: #### B MP, ANEU, PRO, CBC, GFR, ADIFF #### [address] [address] MCH (RBC) [Entitic mass] 30.9 pg Normal 27.0-31.2 [facility]) Comment on above: Performed By: #### B MP, ANEU, PRO, CBC, GFR, ADIFF #### [place] [id number] MCHC 33.4 G/dL Normal 31.8-35.4 [facility] ([place] Comment on above: Performed By: #### B MP, ANEU, PRO, CBC, GFR, ADIFF #### [place] [id number] MCV (RBC) [Entitic vol] 92.6 fL Normal 80.0-94.0 [facility] ([place]) Comment on above: Performed By: #### B MP, ANEU, PRO, CBC, GFR, ADIFF #### [address] [address] Platelet 251 10 3/mcL Normal 130-400 [facility] ([place]) Comment on above: Performed By: #### B MP, ANEU, PRO, CBC, GFR, ADIFF #### [place] [id number] Platelet mean volume (Bld) [Entitic vol] 7.6 fL Normal 7.4-10.4 [facility] ([place] Comment on above: Performed By: #### B MP, ANEU, PRO, CBC, GFR, ADIFF #### [address] [address] RBC 4.87 10 6/mcL Normal 4.04-6.13 [facility] ([place]) Comment on above: Performed By: #### B MP, ANEU, PRO, CBC, GFR, ADIFF #### [address] [address] WBC 7.4 10 3/mcL Normal 4.6-10.8 [facility] ([place]) Comment on above: Performed By: #### B MP, ANEU, PRO, CBC, GFR, ADIFF #### [address] [address] CMPon 04-20-2024 Albumin Level 4.1 G/dL Normal 3.4-4.8 [facility] ([place]) Comment on above: Performed By: #### B MP, ANEU, PRO, CBC, GFR, ADIFF #### [address] [address] Albumin/Globulin [Mass ratio] 1.4 {ratio} Normal 1.1-2.5 [facility] ([place]) Comment on above: Performed By: #### B MP, ANEU, PRO, CBC, GFR, ADIFF #### [address] [address] ALP [Catalytic activity/Vol] 58 U/L Normal 40-135 [facility] ([place]) Comment on above: Performed By: #### B MP, ANEU, PRO, CBC, GFR, ADIFF #### [address] [address] ALT [Catalytic activity/Vol] 35 U/L Normal 16-63 [facility] ([place] Comment on above: Performed By: #### B MP, ANEU, PRO, CBC, GFR, ADIFF #### [address] [address] AST [Catalytic activity/Vol] 22 U/L Normal 10-40 [facility] ([place] Comment on above: Performed By: #### B MP, ANEU, PRO, CBC, GFR, ADIFF #### [address] [address] Bili Total 0.4 mg/dL Normal 0.2-1.0 [facility] ([place]) Comment on above: Result Comment: Use of this assay is not recommended for patients undergoing treatment with eltrombopag due to the potential for falsely elevated results. Performed By: #### B MP, ANEU, PRO, CBC, GFR, ADIFF #### [address] [address] BUN/Creatinine Ratio 16 ratio Normal 7-27 [facility] ([place]) Comment on above: Performed By: #### B MP, ANEU, PRO, CBC, GFR, ADIFF #### [address] [address] Calcium [Mass/Vol] 8.9 mg/dL Normal 8.4-10.2 [facility] ([place]) Comment on above: Performed By: #### B MP, ANEU, PRO, CBC, GFR, ADIFF #### [address] [address] Chloride [Moles/Vol] 105 mmol/L Normal 98-107 [facility] ([place] Comment on above: Performed By: #### B MP, ANEU, PRO, CBC, GFR, ADIFF #### [address] [address] CO2 [Moles/Vol] 27 mmol/L Normal 23-31 [facility] ([place]) Comment on above: Performed By: #### B MP, ANEU, PRO, CBC, GFR, ADIFF #### [address] [address] Creatinine [Mass/Vol] 1.29 mg/dL Normal 0.70-1.30 Pending sale to [facility] ([place]) Comment on above: Result Comment: Test ing performed on Siemens Dimension EXL analyzer using a modified kinetic Shirlene technique. Performed By: #### B MP, ANEU, PRO, CBC, GFR, ADIFF #### [address] [address] Electrolyte Balance 8.0 mEq/L Normal 4.0-15.0 [facility] ([place]) Comment on above: Performed By: #### B MP, ANEU, PRO, CBC, GFR, ADIFF #### [address] [address] Globulin 3.0 G/dL Normal [facility] ([place]) Comment on above: Performed By: #### B MP, ANEU, PRO, CBC, GFR, ADIFF #### [address] [address] Glucose [Mass/Vol] 114 mg/dL Normal 80-115 [facility] ([place] Comment on above: Performed By: #### B MP, ANEU, PRO, CBC, GFR, ADIFF #### [address] [address] Potassium [Moles/Vol] 4.0 mmol/L Normal 3.5-5.1 P[facility] to [facility] ([place]) Comment on above: Performed By: #### B MP, ANEU, PRO, CBC, GFR, ADIFF #### [address] [address] Sodium [Moles/Vol] 140 mmol/L Normal 136-145 [facility] ([place] Comment on above: Performed By: #### B MP, ANEU, PRO, CBC, GFR, ADIFF #### [address] [address] Total Protein 7.1 G/dL Normal 6.4-8.2 [facility] ([place] Comment on above: Performed By: #### B MP, ANEU, PRO, CBC, GFR, ADIFF #### [address] [address] Urea nitrogen [Mass/Vol] 20 mg/dL High 7-18 [facility] ([place] Comment on above: Performed By: #### B MP, ANEU, PRO, CBC, GFR, ADIFF #### [address] [place] [address] [address] HEAD OR BRAIN W/O CONTRAS Ton 04-20-2024 CT HEAD OR BRAIN W/O CONTRAST ORIGINAL EXAMINATION: CT OF THE HEAD WITHOUT CONTRAST 04/20/2024 7:13 am TECHNIQUE: CT of the head was performed without the administration of intravenous contrast. Automated exposure control, iterative reconstruction, and/or weight based adjustment of the mA/kV was utilized to reduce the radiation dose to as low as reasonably achievable. COMPARISON: None. HISTORY: ORDERING SYSTEM PROVIDED HISTORY: Reason for Exam: change in mental status/weakness/aphasia FINDINGS: BRAIN/VENTRICLES: There is 4.7 cm right parietal intraparenchymal hematoma. Hemorrhage is present within the right lateral ventricle. Trace subarachnoid hemorrhage is noted as well. There is surrounding edema without significant shift of the midline structures. There is no effacement of the basal cisterns. No left hemispheric lesion is identified. The posterior fossa structures appear unremarkable. ORBITS: The visualized portion of the orbits demonstrate no acute abnormality. SINUSES: The visualized paranasal sinuses and mastoid air cells demonstrate no acute abnormality. SOFT TISSUES/SKULL: No acute abnormality of the visualized skull or soft tissues. IMPRESSION: Right parietal intraparenchymal hematoma with intraventricular extension and trace subarachnoid hemorrhage. Findings discussed with emergency room physician 07:45 a.m. Interpreted by: Matilde Cornelius Preliminary Report By: Matilde Cornelius Electronically signed By Matilde Cornelius Dictated Date: 04/20/2024 7:38:52 AM Prelim Date: 04/20/2024 7:45:22 AM Sign Date: 04/20/2024 7:45:22 AM Ordering Provider: HAWA Blackburn [facility] ([place]) LABORATORYOrdered By: Michael Youngblood on 04-20-2024 Clot angle after addition of heparinase TEG (Bld) [Angle] 77.8 degrees Normal 64.0 - 80.0 degrees TEG Subsection Clot formation after addition of heparinase TEG (Bld) [Time] 1.0 minute(s) Normal 1.0 - 2.0 minute(s) TEG Subsection Clot lysis estimate TEG (Bld) [%] 0.0 % Normal 0.0 - 8.0 % AH TEG Subsection Clot strength after addition of heparinase TEG (Bld) [Energy/Area] 69.2 mm Normal 52.0 - 71.0 mm TEG Subsection Clotting time after addition of heparinase TEG (Bld) 0.5 minute(s) Normal 0.0 - 1.0 minute(s) TEG Subsection TEG ACT with Heparin 97.0 s Normal 86.0 - 118.0 second(s) TEG Subsection ABO and Rh group Nom (Bld) Blood group A Rh(D) negative Invalid Interpretation Code BB Auto SS Platelet Product Ready Platelet Ready for Pickup (04/20/24 11:59 AM) Normal BB Manual SS LABORATORYOrdered By: Marcio on 04-20-2024 Plt % Functional 6 % Low 80 - 97 % Hematology S Plt ADP 197 k/mm3 Invalid Interpretation Code Hematology S Plt Base 209 k/mm3 Invalid Interpretation Code Hematology S LABORATORYOrdered By: Dottie Valdes on 04-20-2024 ABO and Rh group Nom (Bld) Blood group A Rh(D) negative Invalid Interpretation Code AO BB Auto SS LABORATORYOrdered By: Francisco Javier Smith on 04-20-2024 Amphetamines Screen Ql (U) Negative *NA* (04/20/24 8:32 AM) Invalid Interpretation Code Negative AO ADM SS Appearance (U) Clear (04/20/24 8:32 AM) Normal Clear AO Auto Urine SS Barbiturates Screen Ql (U) Negative *NA* (04/20/24 8:32 AM) Invalid Interpretation Code Negative AO ADM SS Benzodiazepines Ql (U) Positive *ABN* (04/20/24 8:32 AM) Invalid Interpretation Code Negative AO ADM SS Benzoylecgonine Screen Ql (U) Negative *NA* (04/20/24 8:32 AM) Invalid Interpretation Code Negative AO ADM SS Bilirubin Ql (U) Negative (04/20/24 8:32 AM) Normal Negative AO Auto Urine SS Cannabinoids Screen Ql (U) Negative *NA* (04/20/24 8:32 AM) Invalid Interpretation Code Negative AO ADM SS Color (U) Yellow (04/20/24 8:32 AM) Normal AO Auto Urine SS Glucose Test strip (U) [Mass/Vol] Negative Normal Negative AO Auto Urine SS Hemoglobin Auto test strip (U) [Mass/Vol] Negative (04/20/24 8:32 AM) Normal Negative AO Auto Urine SS Ketones Ql (U) Negative Normal Negative AO Auto Urine SS Methadone Screen Ql (U) Negative *NA* (04/20/24 8:32 AM) Invalid Interpretation Code Negative AO ADM SS Opiates Screen Ql (U) Negative *NA* (04/20/24 8:32 AM) Invalid Interpretation Code Negative AO ADM SS Phencyclidine Ql (U) Negative *NA* (04/20/24 8:32 AM) Invalid Interpretation Code Negative AO ADM SS UA Leuk Est Negative (04/20/24 8:32 AM) Normal Negative AO Auto Urine SS UA Nitrite Negative (04/20/24 8:32 AM) Normal Negative AO Auto Urine SS UA pH 6.0 (04/20/24 8:32 AM) Normal 5.0 - 8.0 AO Auto Urine SS UA Protein Negative Normal Negative AO Auto Urine SS UA Spec Grav >=1.030 *ABN* (04/20/24 8:32 AM) Invalid Interpretation Code 1.015-1.025 AO Auto Urine SS UA Specimen Type Void (04/20/24 8:32 AM) Normal AO Auto Urine SS UA Urobilinogen 0.2 E.U./dL Normal 0.2-1.0 AO Auto Urine SS Urine Drugs screened: See Below 5 (04/20/24 8:32 AM) Normal AO Chemistry S Comment on above: Interpretive Data: T his drug screen is a presumptive screening only. No confirmation will be performed unless requested. Drugs screened include: Threshold Amphetamines/Methamphetamines 1,000 ng/mL Barbiturates 200 ng/mL Benzodiazepine metabolites 200 ng/mL Cannabinoids (THC metabolites) 50 ng/mL Cocaine 300 ng/mL Opiates 300 ng/mL Methadone 300 ng/mL Phencyclidine (PCP) 25 ng/mL Testing has been performed FOR MEDICAL PURPOSES ONLY. LABORATORYOrdered By: SYSTEM SYSTEM on 04-20-2024 Albumin BCP dye [Mass/Vol] 4.1 G/dL Normal 3.4 - 4.8 G/dL AO ADM SS Albumin/Globulin [Mass ratio] 1.4 {ratio} Normal 1.1 - 2.5 ratio AO ADM SS ALP [Catalytic activity/Vol] 58 U/L Normal 40 - 135 U/L AO ADM SS ALT With P-5'-P [Catalytic activity/Vol] 35 U/L Normal 16 - 63 U/L AO ADM SS AST With P-5'-P [Catalytic activity/Vol] 22 U/L Normal 10 - 40 U/L AO ADM SS Basophils (Bld) [#/Vol] 0.1 103/mcL Normal 0.0 - 0.2 10^3/mcL AO Workflow SS Basophils/100 WBC (Bld) 0.7 % Normal 0.0 - 2.5 % AO Workflow SS Bilirubin [Mass/Vol] 0.4 mg/dL Normal 0.2 - 1 .0 mg/dL AO ADM SS Comment on above: Interpretive Data: U se of this assay is not recommended for patients undergoing treatment with eltrombopag due to the potential for falsely elevated results. Calcium [Mass/Vol] 8.9 mg/dL Normal 8.4 - 10. 2 mg/dL AO ADM SS Chloride [Moles/Vol] 105 mmol/L Normal 98 - 10 7 mmol/L AO ADM SS CO2 [Moles/Vol] 27 mmol/L Normal 23 - 31 mmol/L AO ADM SS Creatinine [Mass/Vol] 1.29 mg/dL Normal 0.70 - 1.30 mg/dL AO ADM SS Comment on above: Interpretive Data: T esting performed on Siemens Dimension EXL analyzer using a modified kinetic Shirlene technique. Electrolyte Balance 8.0 mEq/L Normal 4.0 - 15 .0 mEq/L AO ADM SS Eosinophil, Absolute 0.2 103/mcL Normal 0.0 - 0 .4 10^3/mcL AO Workflow SS Eosinophils/100 WBC (Bld) 3.2 % Normal 0.0 - 7.0 % AO Workflow SS Erythrocyte distribution width (RBC) [Ratio] 14.3 % Normal 11.5 - 14.5 % AO Workflow SS Ethanol [Mass/Vol] 4 mg/dL High 0 - 3 mg/dL AO AD M SS GFR/1.73 sq M.predicted among blacks MDRD (S/P/Bld) [Vol rate/Area] 68 ml/min/1.73sqm Invalid Interpretation Code AO Chemistry S Comment on above: Interpretive Data: GFR Population mean for , Non- Americans Ages 20-29 = 116 mL/min/1.73 sq.m. Ages 30-39 = 107 mL/min/1.73 sq.m. Ages 40-49 = 99 mL/min/1.73 sq.m. Ages 50-59 = 93 mL/min/1.73 sq.m. Ages 60-69 = 85 mL/min/1.73 sq.m. Ages 70+ = 75 mL/min/1.73 sq.m. Chronic Kidney Disease: Less than 60 mL/min/1.73 square meters End Stage Renal Disease: Less than 15 mL/min/1.73 square meters GFR/1.73 sq M.predicted among non-blacks MDRD (S/P/Bld) [Vol rate/Area] 56 ml/min/1.73sqm Invalid Interpretation Code AO Chemistry S Comment on above: Interpretive Data: GFR Population mean for , Non- Americans Ages 20-29 = 116 mL/min/1.73 sq.m. Ages 30-39 = 107 mL/min/1.73 sq.m. Ages 40-49 = 99 mL/min/1.73 sq.m. Ages 50-59 = 93 mL/min/1.73 sq.m. Ages 60-69 = 85 mL/min/1.73 sq.m. Ages 70+ = 75 mL/min/1.73 sq.m. Chronic Kidney Disease: Less than 60 mL/min/1.73 square meters End Stage Renal Disease: Less than 15 mL/min/1.73 square meters Globulin 3.0 G/dL Invalid Interpretation Code AO ADM SS Glucose [Mass/Vol] 114 mg/dL Normal 80 - 115 mg/dL AO ADM SS Hematocrit (Bld) [Volume fraction] 45.1 % Normal 42.0 - 52.0 % AO Workflow SS Hemoglobin (Bld) [Mass/Vol] 15.0 G/dL Normal 14.0 - 18.0 G/dL AO Workflow SS Lymphocytes (Bld) [#/Vol] 2.7 103/mcL Normal 0.8 - 3.9 10^3/mcL AO Workflow SS Lymphocytes/100 WBC (Bld) 35.8 % Normal 10.0 - 50.0 % AO Workflow SS Magnesium [Mass/Vol] 2.1 mg/dL Normal 1.8 - 2 .4 mg/dL AO ADM SS MCH (RBC) [Entitic mass] 30.9 pg Normal 27.0 - 31.2 pg AO Workflow SS MCHC 33.4 G/dL Normal 31.8 - 35.4 G/dL AO Workflow SS MCV (RBC) [Entitic vol] 92.6 fL Normal 80.0 - 94.0 fL AO Workflow SS Monocyte distribution width Auto (Bld) [Entitic vol] 18.17 1 Normal 0.00 - 20.00 AO Workflow SS Comment on above: Result Comment: For ED adult patients suspected of sepsis, MDW<=20.0 does not rule out sepsis or risk of sepsis Monocytes (Bld) [#/Vol] 0.7 103/mcL Normal 0.2 - 1.0 10^3/mcL AO Workflow SS Monocytes/100 WBC (Bld) 9.0 % Normal 1.7 - 13.0 % AO Workflow SS Neutrophils (Bld) [#/Vol] 3.8 103/mcL Normal 2.9 - 6.2 10^3/mcL AO Workflow SS Neutrophils/100 WBC (Bld) 51.3 % Normal 37.0 - 80.0 % AO Workflow SS Platelet mean volume (Bld) [Entitic vol] 7.6 fL Normal 7.4 - 10.4 fL AO Workflow SS Platelets (Bld) [#/Vol] 251 103/mcL Normal 130 - 400 10^3/mcL AO Workflow SS Potassium [Moles/Vol] 4.0 mmol/L Normal 3.5 - 5.1 mmol/L AO ADM SS Protein [Mass/Vol] 7.1 G/dL Normal 6.4 - 8.2 G/dL AO ADM SS RBC (Bld) [#/Vol] 4.87 106/mcL Normal 4.04 - 6.1 3 10^6/mcL AO Workflow SS Sodium [Moles/Vol] 140 mmol/L Normal 136 - 145 mmol/L AO ADM SS Troponin I.cardiac DL <= 0.01 ng/mL [Mass/Vol] 74 ng/L Normal 0 - 76 ng/L AO ADM SS Comment on above: Interpretive Data: H igh Sensitive Troponin I Reference Ranges: Female: 0-51 ng/L Male: 0-76 ng/L Testing performed on Differential using a homogeneous sandwich chemiluminescent immunoassay based on AnchorFree technology. Urea nitrogen [Mass/Vol] 20 mg/dL High 7 - 18 mg/dL AO ADM SS Urea nitrogen/Creatinine [Mass ratio] 16 ratio Normal 7 - 27 ratio AO ADM SS WBC (Bld) [#/Vol] 7.4 103/mcL Normal 4.6 - 10.8 10^3/mcL AO Workflow SS LABORATORYOrdered By: Purvi Reich on 04-20-2024 Glucose [Mass/Vol] 107 mg/dL Normal 82 - 115 mg/dL [facility] Work Phone: Comment on above: Result Comment: luis angel SELBYon 04-20-2024 Magnesium [Mass/Vol] 2.1 mg/dL Normal 1.8-2.4 [facility] ([place] Comment on above: Performed By: #### B MP, ANEU, PRO, CBC, GFR, ADIFF #### [address] [address] PLTFon 04-20-2024 Plt % Functional 6 % Low 80-97 [facility] ([place] Comment on above: Performed By: #### P LTF #### [address] [address] Plt ADP 197 k/mm3 Normal [facility] ([place] Comment on above: Performed By: #### P LTF #### [address] [address] Plt Base 209 k/mm3 Normal [facility] ([place] Comment on above: Performed By: #### P LTF #### [address] [address] Platelet (Product)on 024 Platelet Product Ready Platelet Ready for Pickup Normal [facility] ([place] Comment on above: Performed By: #### B MP, ANEU, PRO, CBC, GFR, ADIFF #### [address] [address] RAPTEGHon 04-20-2024 Angle TEG Rap Hep 77.8 degrees Normal 64.0-80.0 [facility] ([place] Comment on above: Performed By: #### B MP, ANEU, PRO, CBC, GFR, ADIFF #### [address] [address] K TEG Rap Hep 1.0 minutes Normal 1.0-2.0 [facility] ([place] Comment on above: Performed By: #### B MP, ANEU, PRO, CBC, GFR, ADIFF #### [address] [address] LY30 Lysis TEG with Heparin 0.0 % Normal 0.0-8.0 [facility] ([place] Comment on above: Performed By: #### B MP, ANEU, PRO, CBC, GFR, ADIFF #### [address] [address] MA TEG Rap Hep 69.2 mm Normal 52.0-71.0 [facility] ([place] Comment on above: Performed By: #### B MP, ANEU, PRO, CBC, GFR, ADIFF #### [address] [address] R TEG Rap Hep 0.5 minutes Normal 0.0-1.0 [facility] ([place] Comment on above: Performed By: #### B MP, ANEU, PRO, CBC, GFR, ADIFF #### [address] [address] TEG ACT with Heparin 97.0 second(s) Normal 86.0-118.0 [facility] ([place] Comment on above: Performed By: #### B MP, ANEU, PRO, CBC, GFR, ADIFF #### [address] [facility] High Sensitivity Troponin I 74 ng/L Normal 0-76 [facility] ([place] Comment on above: Result Comment: High Sensitive Troponin I Reference Ranges: Female: 0-51 ng/L Male: 0-76 ng/L Testing performed on Differential using a homogeneous sandwich chemiluminescent immunoassay based on AnchorFree technology. Performed By: #### B MP, ANEU, PRO, CBC, GFR, ADIFF #### [address] [address] UAon 04-20-2024 Color (U) Yellow Normal [facility] ([place] Comment on above: Performed By: #### B MP, ANEU, PRO, CBC, GFR, ADIFF #### [address] [address] Glucose (U) [Mass/Vol] Negative Normal Negative [facility] ([place]) Comment on above: Performed By: #### B MP, ANEU, PRO, CBC, GFR, ADIFF #### [address] [address] Ketones Ql (U) Negative Normal Negative [facility] ([place] Comment on above: Performed By: #### B MP, ANEU, PRO, CBC, GFR, ADIFF #### [address] [address] UA Appear Clear Normal Clear [facility] ([place] Comment on above: Performed By: #### B MP, ANEU, PRO, CBC, GFR, ADIFF #### [address] [address] UA Blood Negative Normal Negative [facility] ([place] Comment on above: Performed By: #### B MP, ANEU, PRO, CBC, GFR, ADIFF #### [address] [address] UA Leuk Est Negative Normal Negative [facility] ([place] Comment on above: Performed By: #### B MP, ANEU, PRO, CBC, GFR, ADIFF #### [address] [address] UA Nitrite Negative Normal Negative [facility] ([place] Comment on above: Performed By: #### B MP, ANEU, PRO, CBC, GFR, ADIFF #### [address] [address] UA pH 6.0 Normal 5.0 - 8.0 [facility] ([place] Comment on above: Performed By: #### B MP, ANEU, PRO, CBC, GFR, ADIFF #### [address] [address] UA Protein Negative Normal Negative [facility] ([place] Comment on above: Performed By: #### B MP, ANEU, PRO, CBC, GFR, ADIFF #### [address] [address] UA Spec Grav >=1.030 Abnormal 1.015-1.025 [facility] ([place] Comment on above: Performed By: #### B MP, ANEU, PRO, CBC, GFR, ADIFF #### [address] [address] UA Specimen Type Void Normal [facility] ([place] Comment on above: Performed By: #### B MP, ANEU, PRO, CBC, GFR, ADIFF #### [address] [address] UA Urobilinogen 0.2 E.U./dL Normal 0.2-1.0 [facility] ([place] Comment on above: Performed By: #### B MP, ANEU, PRO, CBC, GFR, ADIFF #### [place] [address] Urobilinogen (U) [Mass/Vol] Negative Normal Negative [facility] ([place] Comment on above: Performed By: #### B MP, ANEU, PRO, CBC, GFR, ADIFF #### [place] [address] UDRUGon 04-20-2024 Amphetamine (u) Negative Normal Negative [facility] ([place] Comment on above: Performed By: #### U DRUG #### [place] [address] Barbiturate (u) Negative Normal Negative [facility] ([place] Comment on above: Performed By: #### U DRUG #### [address] [address] Benzodiazepine (u) Positive Abnormal Negative [facility] ([place] Comment on above: Performed By: #### U DRUG #### [address] [address] Cannabinoid (u) Negative Normal Negative [facility] ([place] Comment on above: Performed By: #### U DRUG #### [place] [address] Cocaine Ql (U) Negative Normal Negative [facility] ([place] Comment on above: Performed By: #### U DRUG #### [place] [address] Methadone Ql (U) Negative Normal Negative [facility] ([place] Comment on above: Performed By: #### U DRUG #### [address] [address] Opiate (u) Negative Normal Negative [facility] ([place] Comment on above: Performed By: #### U DRUG #### [place] [id number] [place], [place] [address] PCP (u) Negative Normal Negative [facility] ([place] Comment on above: Performed By: #### U DRUG #### [place] [address] [address] Urine Drugs screened: See Below Normal [facility] ([place] Comment on above: Result Comment: This drug screen is a presumptive screening only. No confirmation will be performed unless requested. Drugs screened include: Threshold Amphetamines/Methamphetamines 1,000 ng/mL Barbiturates 200 ng/mL Benzodiazepine metabolites 200 ng/mL Cannabinoids (THC metabolites) 50 ng/mL Cocaine 300 ng/mL Opiates 300 ng/mL Methadone 300 ng/mL Phencyclidine (PCP) 25 ng/mL Testing has been performed FOR MEDICAL PURPOSES ONLY. Performed By: #### U DRUG #### [address] [address] .GFRon 04-19-2024 GFR >60 Normal [facility] ([place] Comment on above: Result Comment: GFR Population mean for , Non- Americans Ages 20-29 = 116 mL/min/1.73 sq.m. Ages 30-39 = 107 mL/min/1.73 sq.m. Ages 40-49 = 99 mL/min/1.73 sq.m. Ages 50-59 = 93 mL/min/1.73 sq.m. Ages 60-69 = 85 mL/min/1.73 sq.m. Ages 70+ = 75 mL/min/1.73 sq.m. Chronic Kidney Disease: Less than 60 mL/min/1.73 square meters End Stage Renal Disease: Less than 15 mL/min/1.73 square meters Performed By: #### G FR, CRE #### [place] [address] GFR Non- >60 Normal [facility] ([place] Comment on above: Result Comment: GFR Population mean for , Non- Americans Ages 20-29 = 116 mL/min/1.73 sq.m. Ages 30-39 = 107 mL/min/1.73 sq.m. Ages 40-49 = 99 mL/min/1.73 sq.m. Ages 50-59 = 93 mL/min/1.73 sq.m. Ages 60-69 = 85 mL/min/1.73 sq.m. Ages 70+ = 75 mL/min/1.73 sq.m. Chronic Kidney Disease: Less than 60 mL/min/1.73 square meters End Stage Renal Disease: Less than 15 mL/min/1.73 square meters Performed By: #### G , CRE #### [place] [address] CREon 04-19-2024 Creatinine [Mass/Vol] 1.05 mg/dL Normal 0.60-1.40 [facility] [place] Comment on above: Result Comment: Test ing performed on [employer] analyzer using enzymatic creatinine methodology. Performed By: #### G , CRE #### [place] [address] LABORATORYOrdered By: SYSTEM SYSTEM on 04-19-2024 Creatinine [Mass/Vol] 1.05 mg/dL Normal 0.60 - 1.40 mg/dL [facility] Comment on above: Interpretive Data: T esting performed on [employer] analyzer using enzymatic creatinine methodology. GFR/1.73 sq M.predicted among blacks MDRD (S/P/Bld) [Vol rate/Area] ml/min/1.73sqm Invalid Interpretation Code Chemistry S Comment on above: Interpretive Data: GFR Population mean for , Non- Americans Ages 20-29 = 116 mL/min/1.73 sq.m. Ages 30-39 = 107 mL/min/1.73 sq.m. Ages 40-49 = 99 mL/min/1.73 sq.m. Ages 50-59 = 93 mL/min/1.73 sq.m. Ages 60-69 = 85 mL/min/1.73 sq.m. Ages 70+ = 75 mL/min/1.73 sq.m. Chronic Kidney Disease: Less than 60 mL/min/1.73 square meters End Stage Renal Disease: Less than 15 mL/min/1.73 square meters GFR/1.73 sq M.predicted among non-blacks MDRD (S/P/Bld) [Vol rate/Area] ml/min/1.73sqm Invalid Interpretation Code JOSÉ Stroud Comment on above: Interpretive Data: GFR Population mean for , Non- Americans Ages 20-29 = 116 mL/min/1.73 sq.m. Ages 30-39 = 107 mL/min/1.73 sq.m. Ages 40-49 = 99 mL/min/1.73 sq.m. Ages 50-59 = 93 mL/min/1.73 sq.m. Ages 60-69 = 85 mL/min/1.73 sq.m. Ages 70+ = 75 mL/min/1.73 sq.m. Chronic Kidney Disease: Less than 60 mL/min/1.73 square meters End Stage Renal Disease: Less than 15 mL/min/1.73 square meters .Auto Diffon 04-18-2024 Basophil, Absolute 0.0 10 3/mcL Normal 0.0-0.2 [facility] ([place] Comment on above: Performed By: #### B MP, ANEU, PRO, CBC, GFR, ADIFF #### [address] [address] Basophils/100 WBC (Bld) 0.8 % Normal 0.0-2.5 [facility] ([place] Comment on above: Performed By: #### B MP, ANEU, PRO, CBC, GFR, ADIFF #### [address] [address] Eosinophil, Absolute 0.2 10 3/mcL Normal 0.0-0.4 [facility] ([place] Comment on above: Performed By: #### B MP, ANEU, PRO, CBC, GFR, ADIFF #### [address] [address] Eosinophils/100 WBC (Bld) 3.9 % Normal 0.0-7.0 [facility] ([place] Comment on above: Performed By: #### B MP, ANEU, PRO, CBC, GFR, ADIFF #### [address] [address] Lymphocyte, Absolute 2.1 10 3/mcL Normal 0.8-3.9 [facility] ([place] Comment on above: Performed By: #### B MP, ANEU, PRO, CBC, GFR, ADIFF #### [address] [address] Lymphocytes/100 WBC (Bld) 36.4 % Normal 10.0-50.0 [facility] ([place] Comment on above: Performed By: #### B MP, ANEU, PRO, CBC, GFR, ADIFF #### [address] [address] Monocyte, Absolute 0.6 10 3/mcL Normal 0.2-1.0 [facility] ([place] Comment on above: Performed By: #### B MP, ANEU, PRO, CBC, GFR, ADIFF #### [address] [address] Monocytes/100 WBC (Bld) 10.4 % Normal 1.7-13.0 [facility] ([place] Comment on above: Performed By: #### B MP, ANEU, PRO, CBC, GFR, ADIFF #### [address] [address] Neutrophils/100 WBC (Bld) 48.5 % Normal 37.0-80.0 [facility] ([place] Comment on above: Performed By: #### B MP, ANEU, PRO, CBC, GFR, ADIFF #### [address] [address] .GFRon 04-18-2024 GFR Non- 57 ml/min/1.73sqm Normal [facility] ([place] Comment on above: Result Comment: GFR Population mean for , Non- Americans Ages 20-29 = 116 mL/min/1.73 sq.m. Ages 30-39 = 107 mL/min/1.73 sq.m. Ages 40-49 = 99 mL/min/1.73 sq.m. Ages 50-59 = 93 mL/min/1.73 sq.m. Ages 60-69 = 85 mL/min/1.73 sq.m. Ages 70+ = 75 mL/min/1.73 sq.m. Chronic Kidney Disease: Less than 60 mL/min/1.73 square meters End Stage Renal Disease: Less than 15 mL/min/1.73 square meters Performed By: #### B MP, ANEU, PRO, CBC, GFR, ADIFF #### [address] [address] GFR 69 ml/min/1.73sqm Normal [facility] ([place] Comment on above: Result Comment: GFR Population mean for , Non- Americans Ages 20-29 = 116 mL/min/1.73 sq.m. Ages 30-39 = 107 mL/min/1.73 sq.m. Ages 40-49 = 99 mL/min/1.73 sq.m. Ages 50-59 = 93 mL/min/1.73 sq.m. Ages 60-69 = 85 mL/min/1.73 sq.m. Ages 70+ = 75 mL/min/1.73 sq.m. Chronic Kidney Disease: Less than 60 mL/min/1.73 square meters End Stage Renal Disease: Less than 15 mL/min/1.73 square meters Performed By: #### B MP, ANEU, PRO, CBC, GFR, ADIFF #### [address] [address] .NEUABSon 04-18-2024 Neutrophil, Absolute 2.8 10 3/mcL Low 2.9-6.2 [facility] ([place]) Comment on above: Performed By: #### B MP, ANEU, PRO, CBC, GFR, ADIFF #### [address] [address] BMPon 04-18-2024 BUN/Creatinine Ratio 15 ratio Normal 7-27 [facility] ([place]) Comment on above: Performed By: #### B MP, ANEU, PRO, CBC, GFR, ADIFF #### [address] [address] Calcium [Mass/Vol] 9.0 mg/dL Normal 8.4-10.2 [facility] ([place]) Comment on above: Performed By: #### B MP, ANEU, PRO, CBC, GFR, ADIFF #### [address] [address] Chloride [Moles/Vol] 106 mmol/L Normal 98-107 [facility] ([place] Comment on above: Performed By: #### B MP, ANEU, PRO, CBC, GFR, ADIFF #### [address] [address] CO2 [Moles/Vol] 27 mmol/L Normal 23-31 [facility] ([place]) Comment on above: Performed By: #### B MP, ANEU, PRO, CBC, GFR, ADIFF #### [address] [address] Creatinine [Mass/Vol] 1.26 mg/dL Normal 0.70-1.30 Pending sale to [facility] ([place]) Comment on above: Result Comment: Test ing performed on Punchbowl Dimension EXL analyzer using a modified kinetic Shirlene technique. Performed By: #### B MP, ANEU, PRO, CBC, GFR, ADIFF #### [address] [address] Electrolyte Balance 10.0 mEq/L Normal 4.0-15.0 [facility] ([place]) Comment on above: Performed By: #### B MP, ANEU, PRO, CBC, GFR, ADIFF #### [address] [address] Glucose [Mass/Vol] 100 mg/dL Normal 80-115 [facility] ([place]) Comment on above: Performed By: #### B MP, ANEU, PRO, CBC, GFR, ADIFF #### [address] [address] Potassium [Moles/Vol] 4.6 mmol/L Normal 3.5-5.1 P[facility] to [facility] ([place] Comment on above: Performed By: #### B MP, ANEU, PRO, CBC, GFR, ADIFF #### [address] [address] Sodium [Moles/Vol] 143 mmol/L Normal 136-145 [facility] ([place] Comment on above: Performed By: #### B MP, ANEU, PRO, CBC, GFR, ADIFF #### [place] [address] Urea nitrogen [Mass/Vol] 19 mg/dL High 7-18 [facility] ([place]) Comment on above: Performed By: #### B MP, ANEU, PRO, CBC, GFR, ADIFF #### [place] [address] CBCon 04-18-2024 Erythrocyte distribution width (RBC) [Ratio] 14.3 % Normal 11.5-14.5 [facility] ([place]) Comment on above: Performed By: #### B MP, ANEU, PRO, CBC, GFR, ADIFF #### [place] [address] Hematocrit (Bld) [Volume fraction] 45.8 % Normal 42.0-52.0 [facility] ([place] Comment on above: Performed By: #### B MP, ANEU, PRO, CBC, GFR, ADIFF #### [place] [address] Hgb 15.0 G/dL Normal 14.0-18.0 [facility] ([place] Comment on above: Performed By: #### B MP, ANEU, PRO, CBC, GFR, ADIFF #### [place] [address] MCH (RBC) [Entitic mass] 30.6 pg Normal 27.0-31.2 [facility] ([place] Comment on above: Performed By: #### B MP, ANEU, PRO, CBC, GFR, ADIFF #### [place] [address] MCHC 32.7 G/dL Normal 31.8-35.4 [facility] ([place] Comment on above: Performed By: #### B MP, ANEU, PRO, CBC, GFR, ADIFF #### [place] [id number] MCV (RBC) [Entitic vol] 93.6 fL Normal 80.0-94.0 [facility] ([place] Comment on above: Performed By: #### B MP, ANEU, PRO, CBC, GFR, ADIFF #### [address] [address] Platelet 237 10 3/mcL Normal 130-400 [facility] ([place] Comment on above: Performed By: #### B MP, ANEU, PRO, CBC, GFR, ADIFF #### [address] [address] Platelet mean volume (Bld) [Entitic vol] 8.1 fL Normal 7.4-10.4 [facility] ([place] Comment on above: Performed By: #### B MP, ANEU, PRO, CBC, GFR, ADIFF #### [address] [address] RBC 4.90 10 6/mcL Normal 4.04-6.13 [facility] ([place] Comment on above: Performed By: #### B MP, ANEU, PRO, CBC, GFR, ADIFF #### [address] [address] WBC 5.9 10 3/mcL Normal 4.6-10.8 [facility] ([place] Comment on above: Performed By: #### B MP, ANEU, PRO, CBC, GFR, ADIFF #### [address] [address] DLDLon 04-18-2024 Direct LDL Cholesterol 97 mg/dL Normal 0-99 [facility] ([place]) Comment on above: Result Comment: Dire ct LDL Cholesterol Reference Interval: Optimal: <100 mg/dL Near Optimal/above optimal: 100-129 mg/dL Borderline high: 130-159 mg/dL High: 160-189 mg/dL Very high: >=190 mg/dL Performed By: #### B MP, ANEU, PRO, CBC, GFR, ADIFF #### [address] [address] LABORATORYOrdered By: Bonnie Marroquin on 04-18-2024 Cholesterol in LDL [Mass/Vol] 97 mg/dL Normal 0 - 99 mg/dL AO ADM SS Comment on above: Interpretive Data: D irect LDL Cholesterol Reference Interval: Optimal: <100 mg/dL Near Optimal/above optimal: 100-129 mg/dL Borderline high: 130-159 mg/dL High: 160-189 mg/dL Very high: >=190 mg/dL LABORATORYOrdered By: SYSTEM SYSTEM on 04-18-2024 Basophil, Absolute 0.0 103/mcL Normal 0.0 - 0.2 10^3/mcL AO Workflow SS Basophils/100 WBC (Bld) 0.8 % Normal 0.0 - 2.5 % AO Workflow SS Calcium [Mass/Vol] 9.0 mg/dL Normal 8.4 - 10. 2 mg/dL AO ADM SS Chloride [Moles/Vol] 106 mmol/L Normal 98 - 10 7 mmol/L AO ADM SS CO2 [Moles/Vol] 27 mmol/L Normal 23 - 31 mmol/L AO ADM SS Creatinine [Mass/Vol] 1.26 mg/dL Normal 0.70 - 1.30 mg/dL AO ADM SS Comment on above: Interpretive Data: T esting performed on Siemens Dimension EXL analyzer using a modified kinetic Shirlene technique. Electrolyte Balance 10.0 mEq/L Normal 4.0 - 15 .0 mEq/L AO ADM SS Eosinophil, Absolute 0.2 103/mcL Normal 0.0 - 0 .4 10^3/mcL AO Workflow SS Eosinophils/100 WBC (Bld) 3.9 % Normal 0.0 - 7.0 % AO Workflow SS Erythrocyte distribution width (RBC) [Ratio] 14.3 % Normal 11.5 - 14.5 % AO Workflow SS GFR/1.73 sq M.predicted among blacks MDRD (S/P/Bld) [Vol rate/Area] 69 ml/min/1.73sqm Invalid Interpretation Code AO Chemistry S Comment on above: Interpretive Data: GFR Population mean for , Non- Americans Ages 20-29 = 116 mL/min/1.73 sq.m. Ages 30-39 = 107 mL/min/1.73 sq.m. Ages 40-49 = 99 mL/min/1.73 sq.m. Ages 50-59 = 93 mL/min/1.73 sq.m. Ages 60-69 = 85 mL/min/1.73 sq.m. Ages 70+ = 75 mL/min/1.73 sq.m. Chronic Kidney Disease: Less than 60 mL/min/1.73 square meters End Stage Renal Disease: Less than 15 mL/min/1.73 square meters GFR/1.73 sq M.predicted among non-blacks MDRD (S/P/Bld) [Vol rate/Area] 57 ml/min/1.73sqm Invalid Interpretation Code AO Chemistry S Comment on above: Interpretive Data: GFR Population mean for , Non- Americans Ages 20-29 = 116 mL/min/1.73 sq.m. Ages 30-39 = 107 mL/min/1.73 sq.m. Ages 40-49 = 99 mL/min/1.73 sq.m. Ages 50-59 = 93 mL/min/1.73 sq.m. Ages 60-69 = 85 mL/min/1.73 sq.m. Ages 70+ = 75 mL/min/1.73 sq.m. Chronic Kidney Disease: Less than 60 mL/min/1.73 square meters End Stage Renal Disease: Less than 15 mL/min/1.73 square meters Glucose [Mass/Vol] 100 mg/dL Normal 80 - 115 mg/dL AO ADM SS Hematocrit (Bld) [Volume fraction] 45.8 % Normal 42.0 - 52.0 % AO Workflow SS Hemoglobin (Bld) [Mass/Vol] 15.0 G/dL Normal 14.0 - 18.0 G/dL AO Workflow SS INR Coag (PPP) [Relative time] 1.0 {INR} Invalid Interpretation Code AO HemoHub SS Comment on above: Interpretive Data: Pilar campbell [employer] (CHEST, 1992, 102:312S-25S) recommended therapeutic range for oral anticoagulant therapy is: LOW RISK: Prophylaxis of venous thrombosis INR: 2.0-3.0 Treatment of pulmonary embolism 2.0-3.0 Prevention of systemic embolism 2.0-3.0 HIGH RISK: Mechanical prosthetic valves 2.5-3.5 Lymphocyte, Absolute 2.1 103/mcL Normal 0.8 - 3 .9 10^3/mcL AO Workflow SS Lymphocytes/100 WBC (Bld) 36.4 % Normal 10.0 - 50.0 % AO Workflow SS MCH (RBC) [Entitic mass] 30.6 pg Normal 27.0 - 31.2 pg AO Workflow SS MCHC 32.7 G/dL Normal 31.8 - 35.4 G/dL AO Workflow SS MCV (RBC) [Entitic vol] 93.6 fL Normal 80.0 - 94.0 fL AO Workflow SS Monocyte, Absolute 0.6 103/mcL Normal 0.2 - 1.0 10^3/mcL AO Workflow SS Monocytes/100 WBC (Bld) 10.4 % Normal 1.7 - 13.0 % AO Workflow SS Neutrophil, Absolute 2.8 103/mcL Low 2.9 - 6 .2 10^3/mcL AO Workflow SS Neutrophils/100 WBC (Bld) 48.5 % Normal 37.0 - 80.0 % AO Workflow SS Platelet mean volume (Bld) [Entitic vol] 8.1 fL Normal 7.4 - 10.4 fL AO Workflow SS Platelets (Bld) [#/Vol] 237 103/mcL Normal 130 - 400 10^3/mcL AO Workflow SS Potassium [Moles/Vol] 4.6 mmol/L Normal 3.5 - 5.1 mmol/L AO ADM SS PT Coag (PPP) [Time] 11.6 s Normal 9.0 - 1 4.4 seconds AO HemoHub SS RBC (Bld) [#/Vol] 4.90 106/mcL Normal 4.04 - 6.1 3 10^6/mcL AO Workflow SS Sodium [Moles/Vol] 143 mmol/L Normal 136 - 145 mmol/L AO ADM SS Urea nitrogen [Mass/Vol] 19 mg/dL High 7 - 18 mg/dL AO ADM SS Urea nitrogen/Creatinine [Mass ratio] 15 ratio Normal 7 - 27 ratio AO ADM SS WBC (Bld) [#/Vol] 5.9 103/mcL Normal 4.6 - 10.8 10^3/mcL AO Workflow SS PROon 04-18-2024 PT Coag (PPP) [Time] 11.6 s Normal 9.0-14.4 [facility] ([place] Comment on above: Performed By: #### B MP, ANEU, PRO, CBC, GFR, ADIFF #### [place] [id number] PT International Ratio 1.0 Normal [facility] ([place]) Comment on above: Result Comment: [employer] [place] [employer] (CHEST, 1992, 102:312S-25S) recommended therapeutic range for oral anticoagulant therapy is: LOW RISK: Prophylaxis of venous thrombosis INR: 2.0-3.0 Treatment of pulmonary embolism 2.0-3.0 Prevention of systemic embolism 2.0-3.0 HIGH RISK: Mechanical prosthetic valves 2.5-3.5 Performed By: #### B MP, ANEU, PRO, CBC, GFR, ADIFF #### [facility] [address] [address] [place], [place] [address] Office Visiton 04-14-2024 Follow-up visit [id number] Pilar Cardoso 1955 M Date Provider Department Center 04/14/2024 [id number]-NAJVABOEVYESSENIA VASQUEZ [facility] None No family history on file Level of Service:82394 ME OFFICE/OUTPATIENT ESTABLISHED MOD MDM 30 MIN Reason for Visit and Comments: Follow-up [093216] Sleep Apnea [348] Normal [facility] Progress Noteon 04-14-2024 Progress Note Visit type: Establis hed Patient Reason for Visit: Follow-up and Sleep Apnea Assessment and Plan 1. Obstructive sleep apnea Subjective HPI: Hx of TARIK. Followed with Dr. Elias. Unable to tolerate masks Inspire Device inserted 10/07/[address] Steffen Layne tried for sleep- Trazodone, Mirtazapine, Amitriptyline, Lunesta, Seroquel, Ativan Device activated 11/30/23 He states last use was about 2 months ago He states that it felt like his tongue was coming out of his mouth and his neck was sore for days He still has some slurring of speech He states gummies work best for sleep REVIEW OF SYSTEMS: Review of Systems Constitutional: Negative. HENT: Negative. Eyes: Negative. Respiratory: Negative. Cardiovascular: Negative. Gastrointestinal: Negative. Endocrine: Negative. Genitourinary: Negative. Musculoskeletal: Negative. Skin: Negative. Allergic/Immunologic: Negative. Neurological: Negative. Hematological: Negative. Psychiatric/Behavioral: Positive for sleep disturbance. Allergies Allergen Reactions Pollen Extract Other Seasonal allergies. Outpatient Medications Prior to Visit Medication Sig Dispense Refill ALPHA LIPOIC ACID PO Take by mouth every morning (before breakfast). Ascorbic Acid (vitamin C) 1000 MG tablet Take 1,000 mg by mouth every morning (before breakfast). atorvastatin (Lipitor) 40 MG tablet Take 40 mg by mouth. B Ishbjou-Cywblk-LD (B COMPLEX 100 TR PO) Take by mouth every morning (before breakfast). cetirizine (ZyrTEC) 10 MG tablet Take by mouth every morning (before breakfast). cholecalciferol (Vitamin D-3) 125 MCG (5000 UT) capsule Take 5,000 Units by mouth daily. cloNIDine (Catapres) 0.1 MG tablet Take 0.1 mg by mouth Daily as needed. irbesartan (Avapro) 75 MG tablet 75 mg. Magnesium Ascorbate powder every morning (before breakfast). metoprolol succinate XL (Toprol-XL) 50 MG 24 hr tablet 50 mg Nightly. mirtazapine (Remeron) 30 MG tablet Take 1 tablet (30 mg) by mouth Nightly. 30 tablet 2 Probiotic Product (PROBIOTIC BLEND PO) Take by mouth every morning (before breakfast). psyllium (Metamucil) 0.36 g capsule daily. Vitamin E 100 units tablet Take by mouth every morning (before breakfast). zinc gluconate 50 MG tablet Take 100 mg by mouth daily. gabapentin (Neurontin) 400 MG capsule Take 1-2 caps po one hour prior to bedtime (Patient not taking: Reported on 12/21/2023) 60 capsule 11 guaiFENesin (Mucinex) 600 MG 12 hr tablet Take 1,200 mg by mouth every morning (before breakfast). Do not crush, chew, or split. QUERCETIN PO Take 400 mg by mouth every morning (before breakfast). No facility-administered medications prior to visit. Past Medical History: Diagnosis Date Anxiety not any more Arthritis Asthma Brain concussion numerous; skull fracture w/subdural hematoma 1976 Cluster headache occasionally, not frequent Colon polyp CTS (carpal tunnel syndrome) 20 years--surgery 03/06 Depression in the past Head injury 1967 Hyperlipidemia Hypertension Insomnia adulthood Irritable bowel syndrome Numbness left thigh, right foot/toe Restless leg syndrome years Sleep apnea 20-30 years DO NOT WEAR CPAP Syncope only when I cough Social History Tobacco Use Smoking status: Never Smokeless tobacco: Never Substance Use Topics Alcohol use: Yes Alcohol/week: 1.0 - 2.0 standard drink of alcohol Types: 1 - 2 Cans of beer per week Comment: Very occasional; go weeks and sometimes months without Past Surgical History: Procedure Laterality Date BICEPS TENDON REPAIR Left CARPAL TUNNEL RELEASE Right COLONOSCOPY ELBOW SURGERY HERNIA REPAIR Bilateral inguinal KNEE ARTHROSCOPY W/ MENISCECTOMY Bilateral ROSA FUNDOPLICATION OTHER SURGICAL HISTORY N/A 02/11/2023 Evaluation of sleep-disordered breathing exam - Dr. Bourne, [facility] SHOULDER ARTHROSCOPY Left TEARS SURGICAL IMPLANT (HISTORICAL) 10/07/2023 INSPIRE - hypoglossal nerve neurostimulator and generator and breathing snesor implant - DR BOURNE TONSILLECTOMY AND ADENOIDECTOMY (HISTORICAL) UPPER GASTROINTESTINAL ENDOSCOPY No family history on file. Objective Vitals: BP 113/77 (BP Location: Right arm, Patient Position: Sitting, BP Cuff Size: Adult) Pulse 79 Ht 5' 5.5 (1.664 m) Wt 207 lb 6.4 oz (94.1 kg) BMI 33.99 kg/m? General Appearance: Patient is in no apparent distress. Head is normocephalic, atraumatic Cardiovascular: Regular rate and rhythm. No heart murmurs. No carotid bruit Neurologic: Mentation: Alert and oriented x 3 to person, place and time. Speech and Language: Speech and language normal Concentration and Attention: Concentration normal Memory: Memory normal Fund of Knowledge: Fund of knowledge normal Cranial Nerves: II, III, IV, V, , VII, VIII, IX, X, XI, XII examined and were intact. Motor: Strength: Strength 5 out of 5 with normal tone Alternating Movements: Normal Cogwheel Rigidity: None Tone: T (more content not included)... Normal [facility] MYOCARDIAL SPECT STRESS/R ESTon 03-31-2024 [place] MYOCARDIAL SPECT STRESS/REST ORIGINAL ND MYOCARDIAL SPECT STRESS/REST CLINICAL STATEMENT: Exertional dyspnea, coronary calcium score > 700, HLD, HTN, TARIK TECHNIQUE: Lexiscan dose:0.4 mg Radiopharmaceutical (stress): Tc-99m Sestamibi Dose:30.6 mCi Radiopharmaceutical (rest): Tc-99m Sestamibi Dose:10.2 mCi SPECT acquisition and processing Reconstruction and reorientation of SPECT images into short axis, vertical and horizontal long axis planes Quantitative LVEF assessment COMPARISON:none REPORT: Post stress myocardial perfusion images showed mild perfusion defect at mid-basal anterior/anteroseptal adamson and moderate defect at basal-mid inferior adamson and apical inferior/inferolateral adamson Resting images showed improved perfusion at anterior wall but similar perfusion inferior wall LVEF 56% with normal wall motion and thickening TID 1.02 IMPRESSION: Suggestive mild ischemia at anterior/anteroseptal adamson, but no infarct imaging part of stress test, limited specificity due to artifacts motion artifact and diaphragmatic attenuation artifact, soft tissue artifact was noted LVEF 56% with normal wall motion Interpreted By: Alise Mccollum Preliminary Report By: Alise Mccollum Electronically Signed By: Alise Mccollum Dictated Date: 03/31/2024 1:12:05 PM Prelim Date: 03/31/2024 1:12:05 PM Sign Date: 03/31/2024 1:20:36 PM Ordering Provider:Regis Phillips [facility] ([place]) CT CORONARY CALCIUM SCORING W/O CONTRASTon 03-16-2024 CT CORONARY CALCIUM SCORING W/O CONTRAST ORIGINAL EXAMINATION: CT OF THE HEART WITHOUT CONTRAST, CORONARY ARTERY CALCIUM SCREENING 03/14/2024 HISTORY: CT OF THE HEART WITHOUT CONTRAST, CORONARY ARTERY CALCIUM SCREENING COMPARISON: None TECHNIQUE: CT of the heart was obtained without intravenous contrast. Calcium scoring analysis was performed using a separate workstation. Dose modulation, iterative reconstruction, and/or weight based adjustment of the mA/kV was utilized to reduce the radiation dose to as low as reasonably achievable. FINDINGS: LEFT MAIN: 82.6 LEFT ANTERIOR DESCENDIN.5 CIRCUMFLEX: 188.1 RIGHT CORONARY ARTERY: Zero (0). POSTERIOR DESCENDING ARTERY: Zero (0) TOTAL AGATSTON CALCIUM SCORE: 777.2 EXTRACARDIAC STRUCTURES: No evidence of mediastinal or hilar lymphadenopathy. No pericardial effusion. No cardiomegaly. No evidence of acute process in the lungs. A 3 mm subpleural nodule seen in the right lower lobe on image 12. Mild bronchiectasis.. Limited images of the upper abdomen are grossly unremarkable. Visualized osseous structures demonstrate age related degenerative changes without acute abnormality. IMPRESSION: Total Agatston calcium score of 777.2 is considered a large plaque burden. Heart attack risk is high. Total calcium score of 777.2 is between the 75th and 90th percentile for the patient's age of 68 y/o . Solid pulmonary nodule measuring 3 mm. Per Fleischner Society Guidelines, no routine follow-up imaging is recommended. These guidelines do not apply to immunocompromised patients and patients with cancer. Follow up in patients with significant comorbidities as clinically warranted. For lung cancer screening, adhere to Lung-RADS guidelines. Reference: Radiology. 2017; 284(1):228-43. Calcium Score Interpretation Percentile ranges: < 25%: Patient has less coronary calcification than can be expected based on gender and age. Based on the calcium score alone, no further evaluation is recommended. 25% to 75%: Patient has coronary calcification as can be expected based on gender and age. Based on the calcium score alone, no further evaluation is recommended. > 75%: Patient has more coronary calcification than can be expected based on gender and age. Based on the calcium score alone, further evaluation of cardiovascular risk is recommended. In all patients, consider further evaluation if multi-vessel or left-main predominant disease is present. CALCIUM SCORING OVERVIEW: Coronary calcium is a marker for plaque in a blood vessel or atherosclerosis (hardening of the arteries). The presence and amount of calcium detected in the coronary artery by the CT scan estimates the presence and amount of atherosclerotic plaque. These calcium deposits can appear years before the development of heart disease symptoms such as chest pain and shortness of breath. A calcium score is computed for each of the coronary arteries based upon the volume and density of the calcium deposits. This can be referred to as your calcified plaque burden. It does not correspond directly to the percentage of narrowing in the artery, but does correlate with the severity of the overall coronary atherosclerotic burden. This score is then used to determine the calcium percentile which compares your calcified plaque burden to that of other asymptomatic men and women of the same age. The calcium score, in combination with the percentile, enables your physician to determine your risk of developing symptomatic coronary artery disease, and to measure the progression of disease as well as the effectiveness of treatment. A score of zero indicates that there is no calcified plaque burden. This implies that there is no significant coronary artery narrowing and very low likelihood of a cardiac event over at least the next 3 years. It does not absolutely rule out the presence of soft, noncalcified plaque or totally eliminate the possibility of a cardiac event. A score greater than zero indicates at least some coronary artery disease. As the score increases, so does the likelihood of a significant coronary narrowing and the likelihood of a coronary event over the next 3 years. Similarly, the likelihood of a coronary event increases with increasing calcium percentiles. Interpreted by: Toan Cowan MD Preliminary Report By: Toan Cowan MD Electronically signed By Toan Cowan MD Dictated Date: 03/16/2024 10:27:29 AM Prelim Date: 03/16/2024 10:29:40 AM Sign Date: 03/16/2024 10:29:40 AM Ordering Provider: REGIS Blackburn [facility]) LABORATORYOrdered By: Refugio Carnes on 02-04-2024 Albumin DL <= 20 mg/L (U) [Mass/Vol] 912 mcg/dL Invalid Interpretation Code AO ADM SS Albumin/Creatinine DL <= 20 mg/L (U) [Mass ratio] 16 mcg/mg Normal 0 - 30 mcg/mg AO ADM SS Creatinine (U) [Mass/Vol] 57.4 mg/dL Normal 39.0 - 259.0 mg/dL AO ADM SS MALBRon 02-04-2024 U Creatinine 57.4 mg/dL Normal 39.0-259.0 [facility] ([place]) Comment on above: Performed By: #### B MP, ANEU, PRO, CBC, GFR, ADIFF #### [address] [address] U Microalb 912 mcg/dL Normal [facility] ([place]) Comment on above: Performed By: #### B MP, ANEU, PRO, CBC, GFR, ADIFF #### [address] [address] U Ratio Alb/Cre 16 mcg/mg Normal 0-30 [facility]) Comment on above: Performed By: #### B MP, ANEU, PRO, CBC, GFR, ADIFF #### [address] [address] .Auto Diffon 01-28-2024 Basophil, Absolute 0.0 10 3/mcL Normal 0.0-0.2 [facility]) Comment on above: Performed By: #### B MP, ANEU, PRO, CBC, GFR, ADIFF #### [address] [address] Basophils/100 WBC (Bld) 0.5 % Normal 0.0-2.5 [facility]) Comment on above: Performed By: #### B MP, ANEU, PRO, CBC, GFR, ADIFF #### [address] [address] Eosinophil, Absolute 0.3 10 3/mcL Normal 0.0-0.4 [facility] ([place]) Comment on above: Performed By: #### B MP, ANEU, PRO, CBC, GFR, ADIFF #### [address] [address] Eosinophils/100 WBC (Bld) 4.6 % Normal 0.0-7.0 [facility] ([place]) Comment on above: Performed By: #### B MP, ANEU, PRO, CBC, GFR, ADIFF #### [address] [address] Lymphocyte, Absolute 2.4 10 3/mcL Normal 0.8-3.9 [facility] ([place]) Comment on above: Performed By: #### B MP, ANEU, PRO, CBC, GFR, ADIFF #### [address] [address] Lymphocytes/100 WBC (Bld) 38.0 % Normal 10.0-50.0 [facility] ([place]) Comment on above: Performed By: #### B MP, ANEU, PRO, CBC, GFR, ADIFF #### [address] [address] Monocyte, Absolute 0.7 10 3/mcL Normal 0.2-1.0 [facility] ([place]) Comment on above: Performed By: #### B MP, ANEU, PRO, CBC, GFR, ADIFF #### [address] [address] Monocytes/100 WBC (Bld) 10.7 % Normal 1.7-13.0 [facility] ([place]) Comment on above: Performed By: #### B MP, ANEU, PRO, CBC, GFR, ADIFF #### [address] [address] Neutrophils/100 WBC (Bld) 46.2 % Normal 37.0-80.0 [facility] ([place]) Comment on above: Performed By: #### B MP, ANEU, PRO, CBC, GFR, ADIFF #### [address] [address] .NEUABSon 01-28-2024 Neutrophil, Absolute 2.9 10 3/mcL Normal 2.9-6.2 [facility] ([place]) Comment on above: Performed By: #### B MP, ANEU, PRO, CBC, GFR, ADIFF #### [place] [id number] A1Con 01-28-2024 HbA1c (Bld) [Mass fraction] 6.1 % Normal 4.3-6.4 [facility] ([place]) Comment on above: Performed By: #### B MP, ANEU, PRO, CBC, GFR, ADIFF #### [place] [address] CBCon 01-28-2024 Erythrocyte distribution width (RBC) [Ratio] 14.9 % High 11.5-14.5 [facility] ([place]) Comment on above: Performed By: #### B MP, ANEU, PRO, CBC, GFR, ADIFF #### [place] [address] Hematocrit (Bld) [Volume fraction] 45.2 % Normal 42.0-52.0 [facility] ([place]) Comment on above: Performed By: #### B MP, ANEU, PRO, CBC, GFR, ADIFF #### [place] [address] Hgb 14.9 G/dL Normal 14.0-18.0 [facility] ([place]) Comment on above: Performed By: #### B MP, ANEU, PRO, CBC, GFR, ADIFF #### [place] [address] MCH (RBC) [Entitic mass] 30.2 pg Normal 27.0-31.2 [facility] ([place] Comment on above: Performed By: #### B MP, ANEU, PRO, CBC, GFR, ADIFF #### [address] [address] MCHC 33.0 G/dL Normal 31.8-35.4 [facility] ([place] Comment on above: Performed By: #### B MP, ANEU, PRO, CBC, GFR, ADIFF #### [address] [address] MCV (RBC) [Entitic vol] 91.5 fL Normal 80.0-94.0 [facility] ([place] Comment on above: Performed By: #### B MP, ANEU, PRO, CBC, GFR, ADIFF #### [address] [address] Platelet 236 10 3/mcL Normal 130-400 [facility] ([place] Comment on above: Performed By: #### B MP, ANEU, PRO, CBC, GFR, ADIFF #### [address] [address] Platelet mean volume (Bld) [Entitic vol] 8.0 fL Normal 7.4-10.4 [facility] ([place] Comment on above: Performed By: #### B MP, ANEU, PRO, CBC, GFR, ADIFF #### [address] [address] RBC 4.94 10 6/mcL Normal 4.04-6.13 [facility] ([place] Comment on above: Performed By: #### B MP, ANEU, PRO, CBC, GFR, ADIFF #### [address] [address] WBC 6.3 10 3/mcL Normal 4.6-10.8 [facility] ([place] Comment on above: Performed By: #### B MP, ANEU, PRO, CBC, GFR, ADIFF #### [address] [address] DLDLon 01-28-2024 Direct LDL Cholesterol 162 mg/dL High 0-99 [facility] ([place] Comment on above: Result Comment: Dire ct LDL Cholesterol Reference Interval: Optimal: <100 mg/dL Near Optimal/above optimal: 100-129 mg/dL Borderline high: 130-159 mg/dL High: 160-189 mg/dL Very high: >=190 mg/dL Performed By: #### B MP, ANEU, PRO, CBC, GFR, ADIFF #### [address] [address] FT4on 01-28-2024 Free T4 [Mass/Vol] 0.69 ng/dL Low 0.76-1.46 [facility] ([place]) Comment on above: Performed By: #### B MP, ANEU, PRO, CBC, GFR, ADIFF #### [address] [address] LIPIDon 01-28-2024 Cholesterol [Mass/Vol] 231 mg/dL High 0-200 [facility] ([place] Comment on above: Result Comment: Chol esterol Reference Interval: Less than 200 Desirable 200-239 Borderline high risk 240 and above High risk Performed By: #### B MP, ANEU, PRO, CBC, GFR, ADIFF #### [address] [address] Cholesterol in HDL [Mass/Vol] 37 mg/dL Low 40-60 [facility] ([place] Comment on above: Performed By: #### B MP, ANEU, PRO, CBC, GFR, ADIFF #### [address] [address] Cholesterol in LDL [Mass/Vol] 163 mg/dL High 0-130 [facility] ([place] Comment on above: Performed By: #### B MP, ANEU, PRO, CBC, GFR, ADIFF #### [address] [address] Triglyceride [Mass/Vol] 153 mg/dL High 0-150 [facility] [place] Comment on above: Result Comment: Trig lyceride Reference Interval: Less than 150 Normal 150-199 Borderline high risk 200-499 High risk 500 or higher Very high risk Performed By: #### B MP, ANEU, PRO, CBC, GFR, ADIFF #### [address] [address] PSAon 01-28-2024 Prostate Specific Antigen 0.93 ng/mL Normal 0.00-4.00 [facility] ([place] Comment on above: Performed By: #### B MP, ANEU, PRO, CBC, GFR, ADIFF #### [address] [address] TSHon 01-28-2024 TSH Qn 2.85 m[IU]/L Normal 0.36-3.74 [facility] ([place] Comment on above: Performed By: #### B MP, ANEU, PRO, CBC, GFR, ADIFF #### [place] [id number] [place], [place] [address] XR ESOPHOGRAM W/ AIRon 10-08 XR ESOPHOGRAM W/ AIR ORIGINAL EXAMINATION: DOUBLE CONTRAST ESOPHAGRAM 10/01/2023 11:03 am TECHNIQUE: Double contrast esophagram was performed with barium and air contrast. FLUOROSCOPY DOSE AND TYPE: Fluoroscopy time was 116 seconds. Radiation dose was 162.2 mGy air kerma COMPARISON: None HISTORY: ORDERING SYSTEM PROVIDED HISTORY: Reason for Exam: dysphagisa, grunting, hx of fundoplasty FINDINGS: The exam was performed by the physician pest controller assistant Ute Terrazas under my indirect supervision Normal oropharyngeal phase of swallowing seen. No large ulceration or filling defects seen in the esophagus. The motility appeared within normal limits. Contrast passed through the fundoplication region without delay. Barium tablet passed without difficulty. No gastroesophageal reflux elicited. IMPRESSION: Patient appears to be post gastric fundoplication. No reflux elicited Interpreted by: Toan Cowan MD Preliminary Report By: Toan Cowan MD Electronically signed By Toan Cowan MD Dictated Date: 10/08/2023 12:31:39 PM Prelim Date: 10/08/2023 12:35:02 PM Sign Date: 10/08/2023 12:35:02 PM Ordering Provider: REGIS PHILLIPS Normal [facility] ([place] DIRECT LDLon 09-10-2023 LDL Chol Direct 143 mg/dL High 0-99 [facility] [place] Comment on above: Result Comment: Perf ormed At: [facility] [address] [id number] Lucio Arthur PhD Ph:[phone] Performed By: #### B MP, ANEU, PRO, CBC, GFR, ADIFF #### [address] [address] .GFRon 09-09-2023 GFR Non- 65 ml/min/1.73sqm Normal [facility] ([place] Comment on above: Result Comment: GFR Population mean for , Non- Americans Ages 20-29 = 116 mL/min/1.73 sq.m. Ages 30-39 = 107 mL/min/1.73 sq.m. Ages 40-49 = 99 mL/min/1.73 sq.m. Ages 50-59 = 93 mL/min/1.73 sq.m. Ages 60-69 = 85 mL/min/1.73 sq.m. Ages 70+ = 75 mL/min/1.73 sq.m. Chronic Kidney Disease: Less than 60 mL/min/1.73 square meters End Stage Renal Disease: Less than 15 mL/min/1.73 square meters Performed By: #### B MP, ANEU, PRO, CBC, GFR, ADIFF #### [address] [address] GFR 79 ml/min/1.73sqm Normal [facility] ([place] Comment on above: Result Comment: GFR Population mean for , Non- Americans Ages 20-29 = 116 mL/min/1.73 sq.m. Ages 30-39 = 107 mL/min/1.73 sq.m. Ages 40-49 = 99 mL/min/1.73 sq.m. Ages 50-59 = 93 mL/min/1.73 sq.m. Ages 60-69 = 85 mL/min/1.73 sq.m. Ages 70+ = 75 mL/min/1.73 sq.m. Chronic Kidney Disease: Less than 60 mL/min/1.73 square meters End Stage Renal Disease: Less than 15 mL/min/1.73 square meters Performed By: #### B MP, ANEU, PRO, CBC, GFR, ADIFF #### [address] [address] B12on 09-09-2023 Cobalamin (Vitamin B12) [Mass/Vol] 389 pg/mL Normal 211-911 [facility] ([place]) Comment on above: Performed By: #### B MP, ANEU, PRO, CBC, GFR, ADIFF #### [address] [address] CMPon 09-09-2023 Albumin Level 3.7 G/dL Normal 3.4-4.8 [facility]) Comment on above: Performed By: #### B MP, ANEU, PRO, CBC, GFR, ADIFF #### [address] [address] Albumin/Globulin [Mass ratio] 1.1 {ratio} Normal 1.1-2.5 [facility]) Comment on above: Performed By: #### B MP, ANEU, PRO, CBC, GFR, ADIFF #### [address] [address] ALP [Catalytic activity/Vol] 46 U/L Normal 40-135 [facility]) Comment on above: Performed By: #### B MP, ANEU, PRO, CBC, GFR, ADIFF #### [address] [address] ALT [Catalytic activity/Vol] 52 U/L Normal 16-63 [facility] [place] Comment on above: Performed By: #### B MP, ANEU, PRO, CBC, GFR, ADIFF #### [address] [address] AST [Catalytic activity/Vol] 25 U/L Normal 10-40 [facility]) Comment on above: Performed By: #### B MP, ANEU, PRO, CBC, GFR, ADIFF #### [address] [address] Bili Total 0.4 mg/dL Normal 0.2-1.0 [facility] ([place] Comment on above: Result Comment: Use of this assay is not recommended for patients undergoing treatment with eltrombopag due to the potential for falsely elevated results. Performed By: #### B MP, ANEU, PRO, CBC, GFR, ADIFF #### [address] [address] BUN/Creatinine Ratio 16 ratio Normal 7-27 [facility] [place] Comment on above: Performed By: #### B MP, ANEU, PRO, CBC, GFR, ADIFF #### [address] [address] Calcium [Mass/Vol] 8.6 mg/dL Normal 8.4-10.2 [facility] [place] Comment on above: Performed By: #### B MP, ANEU, PRO, CBC, GFR, ADIFF #### [address] [address] Chloride [Moles/Vol] 107 mmol/L Normal 98-107 [facility] [place] Comment on above: Performed By: #### B MP, ANEU, PRO, CBC, GFR, ADIFF #### [place] [address] CO2 [Moles/Vol] 26 mmol/L Normal 23-31 [facility] [place] Comment on above: Performed By: #### B MP, ANEU, PRO, CBC, GFR, ADIFF #### [address] [address] Creatinine [Mass/Vol] 1.13 mg/dL Normal 0.70-1.30 Pending sale to [facility] [place]) Comment on above: Performed By: #### B MP, ANEU, PRO, CBC, GFR, ADIFF #### [address] [address] Electrolyte Balance 13.0 mEq/L Normal 4.0-15.0 [facility] ([place] Comment on above: Performed By: #### B MP, ANEU, PRO, CBC, GFR, ADIFF #### [address] [address] Globulin 3.3 G/dL Normal [facility] [place] Comment on above: Performed By: #### B MP, ANEU, PRO, CBC, GFR, ADIFF #### [address] [address] Glucose [Mass/Vol] 102 mg/dL Normal 80-115 [facility] [place] Comment on above: Performed By: #### B MP, ANEU, PRO, CBC, GFR, ADIFF #### [address] [address] Potassium [Moles/Vol] 4.6 mmol/L Normal 3.5-5.1 P[facility] [place] Comment on above: Performed By: #### B MP, ANEU, PRO, CBC, GFR, ADIFF #### [address] [address] Sodium [Moles/Vol] 146 mmol/L High 136-145 [facility] [place] Comment on above: Performed By: #### B MP, ANEU, PRO, CBC, GFR, ADIFF #### [address] [address] Total Protein 7.0 G/dL Normal 6.4-8.2 [facility]) Comment on above: Performed By: #### B MP, ANEU, PRO, CBC, GFR, ADIFF #### [address] [address] Urea nitrogen [Mass/Vol] 18 mg/dL Normal 7-18 [facility]) Comment on above: Performed By: #### B MP, ANEU, PRO, CBC, GFR, ADIFF #### [address] [address] Al[place]zo 09-09-2023 Ferritin [Mass/Vol] 253.0 ng/mL Normal 26.0-388.0 [facility] [place] Comment on above: Performed By: #### B MP, ANEU, PRO, CBC, GFR, ADIFF #### [address] [address] FESon 09-09-2023 Iron [Mass/Vol] 81 ug/dL Normal 65-175 [facility] [place] Comment on above: Performed By: #### B MP, ANEU, PRO, CBC, GFR, ADIFF #### [address] [address] Iron Sat 26 % Normal [facility] [place] Comment on above: Performed By: #### B MP, ANEU, PRO, CBC, GFR, ADIFF #### [address] [address] TIBC 311 mcg/dL Normal 250-450 [facility] [place] Comment on above: Performed By: #### B MP, ANEU, PRO, CBC, GFR, ADIFF #### [address] [address] FT4on 09-09-2023 Free T4 [Mass/Vol] 0.77 ng/dL Normal 0.76-1.46 [facility] [place] Comment on above: Performed By: #### B MP, ANEU, PRO, CBC, GFR, ADIFF #### [address] [address] LIPIDon 09-09-2023 Cholesterol [Mass/Vol] 224 mg/dL High 0-200 [facility] [place] Comment on above: Result Comment: Chol esterol Reference Interval: Less than 200 Desirable 200-239 Borderline high risk 240 and above High risk Performed By: #### B MP, ANEU, PRO, CBC, GFR, ADIFF #### [address] [address] Cholesterol in HDL [Mass/Vol] 40 mg/dL Normal 40-60 [facility] [place] Comment on above: Performed By: #### B MP, ANEU, PRO, CBC, GFR, ADIFF #### [address] [address] Cholesterol in LDL [Mass/Vol] 143 mg/dL High 0-130 [facility] [place] Comment on above: Performed By: #### B MP, ANEU, PRO, CBC, GFR, ADIFF #### [address] [address] Triglyceride [Mass/Vol] 203 mg/dL High 0-150 [facility] [place] Comment on above: Result Comment: Trig lyceride Reference Interval: Less than 150 Normal 150-199 Borderline high risk 200-499 High risk 500 or higher Very high risk Performed By: #### B MP, ANEU, PRO, CBC, GFR, ADIFF #### [place] [address] [address] TSHon 09-09-2023 TSH Qn 2.35 m[IU]/L Normal 0.36-3.74 [facility] [place] Comment on above: Performed By: #### B MP, ANEU, PRO, CBC, GFR, ADIFF #### [place] [id number] VIDHon 09-09-2023 Vit. D 25-Hydroxy 32.3 ng/mL Normal [facility] [place] Comment on above: Result Comment: Inte rpretive Values Based on Total 25(OH) Vitamin D: Deficient <20 ng/mL Insufficient 20 - <30 ng/mL Sufficient 30-100 ng/mL Performed By: #### B MP, ANEU, PRO, CBC, GFR, ADIFF #### [address] [address] US Heart TransthoracicOrdere d By: Dejan Uriarte on 04-28-2023 Aortic Sinus Valsalva 3.3 cm [employer] Work Phone: Aortic Sinus Valsalva Index 1.60 cm/m2 [employer] Work Phone: Ascending Aorta 3.2 cm [employer] Work Phone: Ascending Aorta Index 1.55 cm/m2 [facility] [employer] Work Phone: AV Area by Peak Velocity 2.3 cm2 [employer] Work Phone: AV Area by VTI 2.2 cm2 [employer] Work Phone: AV Mean Gradient 4 mmHg [employer] Work Phone: AV Mean Velocity 0.9 m/s [employer] Work Phone: AV Peak Gradient 6 mmHg [employer] Work Phone: AV Peak Velocity 1.2 m/s [employer] Work Phone: AV Velocity Ratio 0.75 [employer] Work Phone: AV VTI 24.8 cm [facility] Work Phone: TENA/BSA Peak Velocity 1.1 cm2/m2 [facility] Work Phone: TENA/BSA VTI 1.1 cm2/m2 [facility] Work Phone: EF BP 58 % 55 - 100 % [facility] Work Phone: Fractional Shortening 2D 46 % 28 - 44 % [facility] Work Phone: Global Longitudinal Strain -15.1 % [facility] Work Phone: Global Longitudinal Strain -13.1 % [facility] Work Phone: Global Longitudinal Strain -14.4 % [facility] Work Phone: Global Longitudinal Strain -14.2 % [facility] Work Phone: Interpretation and review of laboratory results Abnormal [facility] Work Phone: IVSd 1.4 cm Abnormal 0.6 - 1.0 cm [facility] Work Phone: LA Diameter 3.6 cm [facility] Work Phone: LA Size Index 1.75 cm/m2 [facility] Work Phone: LA Volume 2C 47 mL 18 - 58 mL [facility] Work Phone: LA Volume 4C 49 mL 18 - 58 mL [facility] Work Phone: LA Volume A/L 51 mL [facility] Work Phone: LA Volume Index 2C 23 mL/m2 16 - 34 mL/m2 [employer] Work Phone: LA Volume Index 4C 24 mL/m2 16 - 34 mL/m2 [facility] Work Phone: LA Volume Index A/L 25 mL/m2 16 - 34 mL/m2 [facility] Work Phone: LV EDV A2C 75 mL [employer] Work Phone: LV EDV A4C 110 mL [employer] Work Phone: LV EDV BP 92 mL 67 - 155 mL [employer] Work Phone: LV EDV Index A2C 36 mL/m2 [employer] Work Phone: LV EDV Index A4C 53 mL/m2 [employer] Work Phone: LV EDV Index BP 45 mL/m2 [employer] Work Phone: LV Ejection Fraction A2C 52 % [employer] Work Phone: LV Ejection Fraction A4C 63 % [employer] Work Phone: LV ESV A2C 36 mL [employer] Work Phone: LV ESV A4C 41 mL [employer] Work Phone: LV ESV BP 39 mL 22 - 58 mL [employer] Work Phone: LV ESV Index A2C 17 mL/m2 [employer] Work Phone: LV ESV Index A4C 20 mL/m2 [employer] Work Phone: [phone] LV ESV Index BP 19 mL/m2 [employer] Work Phone: LV Mass 2D 159.3 g 88 - 224 g [employer] Work Phone: LV Mass 2D Index 77.3 g/m2 49 - 115 g/m2 [employer] Work Phone: LV RWT Ratio 0.51 [employer] Work Phone: LVIDd 3.9 cm Abnormal 4.2 - 5.9 cm [employer] Work Phone: LVIDd Index 1.89 cm/m2 [employer] Work Phone: LVIDs 2.1 cm [employer] Work Phone: LVIDs Index 1.02 cm/m2 [facility] Work Phone: LVOT Area 3.1 cm2 [facility] Work Phone: LVOT Cardiac Output 12.7 liter/minute [facility] Work Phone: LVOT Diameter 2.0 cm [facility] Work Phone: LVOT Mean Gradient 2 mmHg [facility] Work Phone: LVOT Peak Gradient 3 mmHg [facility] [employer] Work Phone: LVOT Peak Velocity 0.9 m/s [facility] [employer] Work Phone: LVOT Stroke Volume Index 25.6 mL/m2 [facility] [employer] Work Phone: LVOT SV 52.8 ml [facility] [employer] Work Phone: LVOT VTI 16.8 cm [facility] [employer] Work Phone: LVOT:AV VTI Index 0.68 [facility] [employer] Work Phone: LVPWd 1.0 cm 0.6 - 1.0 cm [facility] [employer] Work Phone: MV A Velocity 0.70 m/s [facility] [employer] Work Phone: MV E Velocity 0.50 m/s [facility] [employer] Work Phone: MV E Wave Deceleration Time 305.7 ms [facility] [employer] Work Phone: MV E/A 0.71 [facility] [employer] Work Phone: RV Basal Dimension 2.2 cm [facility] [employer] Work Phone: RV Mid Dimension 1.3 cm [facility] Work Phone: Sinotubular Junction 3.1 cm [facility] Work Phone: TAPSE 2.8 cm 1.7 cm [facility] Work Phone: TR Max Velocity 2.39 m/s [employer] Phone: TR Peak Gradient 23 mmHg [employer] Phone: [employer] Phone: US Heart Transthoracicon Left Ventricle: Left ventricle size is normal. Normal wall thickness. Normal left ventricular systolic function. EF by 2D Simpsons Biplane is 58%. Normal wall motion. Right Ventricle: Right ventricle size is normal. Normal systolic function. No significant valvular abnormalities. Left Ventricle Left ventricle size is normal. Normal wall thickness. Normal left ventricular systolic function. EF by 2D [employer]ons Biplane is 58%. Normal wall motion. Right Ventricle Right ventricle size is normal. Normal systolic function. Left Atrium Left atrium size is normal. Right Atrium Right atrium size is normal. IVC/SVC IVC diameter is normal and decreases greater than 50% during inspiration; therefore the estimated right atrial pressure is normal (~3 mmHg). Mitral Valve Valve structure is normal. No regurgitation. No stenosis noted. Tricuspid Valve Valve structure is normal. Trace regurgitation. Aortic Valve Trileaflet. No cusp thickening. No cusp calcification. No regurgitation. No stenosis. Pulmonic Valve Valve structure is normal. Trace regurgitation. Ascending Aorta Normal sized sinuses of Valsalva and ascending aorta. Pericardium No pericardial effusion. Septum No interatrial shunt visualized on color Doppler. Study Details Image quality: good. Additional technique includes myocardial strain. Heart rate: 75 bpm. Blood pressure: 145/81 mmHg. The underlying ECG rhythm was sinus rhythm. No contrast was given. Comparison Study There is no prior study available for comparison Echo Additional Conclusions No significant valvular abnormalities. CV CPACS No Panel Informationon 03-23 Lety Fierro MD 03/23/2023 4:47 PM EEG REPORT Patient Name: Tracy Cardoso : 1955 PROVIDER REQUESTING STUDY: Dr. Fierro REASON FOR EXAM: syncope, blacking out HISTORY: Tracy Cardoso is a 67 y.o. with history of syncope, blacking out MEDICATIONS: Current Outpatient Medications: ALPHA LIPOIC ACID PO, Take by mouth., Disp: , Rfl: cetirizine (ZyrTEC) 10 MG tablet, Take by mouth., Disp: , Rfl: gabapentin (Neurontin) 400 MG capsule, Take 1-2 caps po one hour prior to bedtime, Disp: 60 capsule, Rfl: 11 metoprolol succinate XL (Toprol-XL) 50 MG 24 hr tablet, 50 mg., Disp: , Rfl: Probiotic Product (PROBIOTIC BLEND PO), Take by mouth., Disp: , Rfl: psyllium (Metamucil) 0.36 g capsule, Oral, 0 Refill(s), Disp: , Rfl: QUEtiapine (SEROquel) 25 MG tablet, TAKE ONE TABLET BY MOUTH EVERY DAY (If working well, call for refills), Disp: , Rfl: simvastatin (Zocor) 40 MG tablet, Take 40 mg by mouth Nightly., Disp: , Rfl: TECHNICAL ASPECTS: This routine scalp EEG study with video was carried out. Scalp electrodes were positioned in person by an industrial engineering technologist, following patient education, according to the 10-20 International system of electrode placement and maintained for integrity and quality of the recording. EEG data with video was recorded continuously and digitally stored. The industrial engineering technologist reviewed all automated detections and manual events and prepared the data for archiving and provider review. Referential and bipolar montages were used for review. The recording lasted for over 62 minutes. TECHNOLOGIST NOTES: There was no history of skull defect. BACKGROUND ACTIVITY: Posterior background activity: A continuous organized and well-modulated 9 Hz rhythm was seen symmetrically over the posterior head regions bilaterally. Beta range: Fronto-centrally predominant beta range activity (15-25 Hz, 10-20 uV) was seen. Sleep: N2 sleep was reached as evidenced by the appearance of vertex waves and sleep spindles seen symmetrically over the central head regions bilaterally. Normal Variants: No normal variants were identified. SLOWING: No abnormal slowing was seen. INTERICTAL EPILEPTIFORM ACTIVITY: No epileptiform activity was seen. ICTAL ACTIVITY: No ictal activity was seen. NON-EPILEPTIC EVENTS: None. IMPRESSION: This is a normal awake and asleep EEG. [facility] LABORATORYOrdered By: [employer] on 12-08-2022 Albumin BCP dye [Mass/Vol] 4.0 G/dL Invalid Interpretation Code 3.4 - 4.8 G/dL AO ADM SS Albumin/Globulin [Mass ratio] 1.3 {ratio} Invalid Interpretation Code 1.1 - 2.5 ratio AO ADM SS ALP [Catalytic activity/Vol] 43 U/L Invalid Interpretation Code 40 - 135 U/L AO ADM SS ALT With P-5'-P [Catalytic activity/Vol] 41 U/L Invalid Interpretation Code 16 - 63 U/L AO ADM SS AST With P-5'-P [Catalytic activity/Vol] 33 U/L Invalid Interpretation Code 10 - 40 U/L AO ADM SS Bilirubin [Mass/Vol] 0.6 mg/dL Invalid Interpretation Code 0.2 - 1.0 mg/dL AO ADM SS Bilirubin.direct [Mass/Vol] 0.1 mg/dL Invalid Interpretation Code 0.0 - 0.2 mg/dL AO ADM SS Bilirubin.direct [Mass/Vol] 0.5 mg/dL Invalid Interpretation Code AO Chemistry S Free T4 [Mass/Vol] 0.74 ng/dL Invalid Interpretation Code 0.76 - 1.46 ng/dL AO ADM SS Globulin 3.0 G/dL Invalid Interpretation Code AO ADM SS HbA1c (Bld) [Mass fraction] 6.3 % Invalid Interpretation Code 4.3 - 6.4 % AO ADM SS Protein [Mass/Vol] 7.0 G/dL Invalid Interpretation Code 6.4 - 8.2 G/dL AO ADM SS TSH Qn 1.75 m[IU]/L Invalid Interpretation Code 0.36 - 3.74 mcIU/mL AO ADM SS LABORATORYOrdered By: Ana Cristina Hurley on 12-08-2022 Cholesterol [Mass/Vol] 154 mg/dL Invalid Interpretation Code 0 - 200 mg/dL AO ADM SS Cholesterol in HDL [Mass/Vol] 41 mg/dL Invalid Interpretation Code 40 - 60 mg/dL AO ADM SS Cholesterol in LDL [Mass/Vol] 80 mg/dL Invalid Interpretation Code 0 - 130 mg/dL AO ADM SS Triglyceride [Mass/Vol] 164 mg/dL Invalid Interpretation Code 0 - 150 mg/dL AO ADM SS LABORATORYOrdered By: Taylor Sánchez on 07-17-2022 Albumin BCP dye [Mass/Vol] 3.9 G/dL Invalid Interpretation Code 3.4 - 4.8 G/dL AO ADM SS Albumin/Globulin [Mass ratio] 1.3 {ratio} Invalid Interpretation Code 1.1 - 2.5 ratio AO ADM SS ALP [Catalytic activity/Vol] 52 U/L Invalid Interpretation Code 40 - 135 U/L AO ADM SS ALT With P-5'-P [Catalytic activity/Vol] 44 U/L Invalid Interpretation Code 16 - 63 U/L AO ADM SS AST With P-5'-P [Catalytic activity/Vol] 27 U/L Invalid Interpretation Code 10 - 40 U/L AO ADM SS Bilirubin [Mass/Vol] 0.4 mg/dL Invalid Interpretation Code 0.2 - 1.0 mg/dL AO ADM SS Calcium [Mass/Vol] 9.0 mg/dL Invalid Interpretation Code 8.4 - 10.2 mg/dL AO ADM SS Chloride [Moles/Vol] 105 mmol/L Invalid Interpretation Code 98 - 107 mmol/L AO ADM SS Cholesterol [Mass/Vol] 255 mg/dL Invalid Interpretation Code 0 - 200 mg/dL AO ADM SS Cholesterol in HDL [Mass/Vol] 42 mg/dL Invalid Interpretation Code 40 - 60 mg/dL AO ADM SS Cholesterol in LDL [Mass/Vol] 181 mg/dL Invalid Interpretation Code 0 - 130 mg/dL AO ADM SS CO2 [Moles/Vol] 29 mmol/L Invalid Interpretation Code 23 - 31 mmol/L AO ADM SS Creatinine [Mass/Vol] 1.10 mg/dL Invalid Interpretation Code 0.70 - 1.30 mg/dL AO ADM SS Electrolyte Balance 8.0 mEq/L Invalid Interpretation Code 4.0 - 15.0 mEq/L AO ADM SS Free T4 [Mass/Vol] 0.72 ng/dL Invalid Interpretation Code 0.76 - 1.46 ng/dL AO ADM SS Globulin 3.1 G/dL Invalid Interpretation Code AO ADM SS Glucose [Mass/Vol] 107 mg/dL Invalid Interpretation Code 80 - 115 mg/dL AO ADM SS Potassium [Moles/Vol] 4.7 mmol/L Invalid Interpretation Code 3.5 - 5.1 mmol/L AO ADM SS Protein [Mass/Vol] 7.0 G/dL Invalid Interpretation Code 6.4 - 8.2 G/dL AO ADM SS Sodium [Moles/Vol] 142 mmol/L Invalid Interpretation Code 136 - 145 mmol/L AO ADM SS Triglyceride [Mass/Vol] 161 mg/dL Invalid Interpretation Code 0 - 150 mg/dL AO ADM SS TSH Qn 1.60 m[IU]/L Invalid Interpretation Code 0.36 - 3.74 mcIU/mL AO ADM SS Urea nitrogen [Mass/Vol] 13 mg/dL Invalid Interpretation Code 7 - 18 mg/dL AO ADM SS Urea nitrogen/Creatinine [Mass ratio] 12 ratio Invalid Interpretation Code 7 - 27 ratio AO ADM SS LABORATORYOrdered By: SYSTEM SYSTEM on 07-17-2022 GFR 81 ml/min/1.73sqm Invalid Interpretation Code AO Chemistry S GFR Non- 67 ml/min/1.73sqm Invalid Interpretation Code AO Chemistry S LABORATORYOrdered By: Bonnie Marroquin on 07-17-2022 HbA1c (Bld) [Mass fraction] 6.0 % Invalid Interpretation Code 4.3 - 6.4 % AO ADM SS LABORATORYOrdered By: Don Patel on 07-17-2022 HCV Ab IA Ql Non-Reactive (07/17/22 10:23 AM) Invalid Interpretation Code Non-Reactive AH ADM SS HCV Ab IA Ql Nonreactive: Samples with a value < 0.80 are considered nonreactive (negative) for antibodies to HCV.A negative test result does not exclude the possibility of exposure to or infection with HCV. HCV antibodies may be undetectable in some stages of the infection and in some clinical conditions. Invalid Interpretation Code AH Chemistry S LABORATORYOrdered By: Bonnie Marroquin on 11-05-2021 Albumin BCP dye [Mass/Vol] 4.0 G/dL Invalid Interpretation Code 3.4 - 4.8 G/dL AO ADM SS Albumin/Globulin [Mass ratio] 1.2 {ratio} Invalid Interpretation Code 1.1 - 2.5 ratio AO ADM SS ALP [Catalytic activity/Vol] 42 U/L Invalid Interpretation Code 40 - 135 U/L AO ADM SS ALT With P-5'-P [Catalytic activity/Vol] 58 U/L Invalid Interpretation Code 16 - 63 U/L AO ADM SS AST With P-5'-P [Catalytic activity/Vol] 42 U/L Invalid Interpretation Code 10 - 40 U/L AO ADM SS Bilirubin [Mass/Vol] 0.5 mg/dL Invalid Interpretation Code 0.2 - 1.0 mg/dL AO ADM SS Calcium [Mass/Vol] 9.0 mg/dL Invalid Interpretation Code 8.4 - 10.2 mg/dL AO ADM SS Chloride [Moles/Vol] 105 mmol/L Invalid Interpretation Code 98 - 107 mmol/L AO ADM SS Cholesterol [Mass/Vol] 175 mg/dL Invalid Interpretation Code 0 - 200 mg/dL AO ADM SS Cholesterol in HDL [Mass/Vol] 40 mg/dL Invalid Interpretation Code 40 - 60 mg/dL AO ADM SS Cholesterol in LDL [Mass/Vol] 104 mg/dL Invalid Interpretation Code 0 - 130 mg/dL AO ADM SS CO2 [Moles/Vol] 26 mmol/L Invalid Interpretation Code 23 - 31 mmol/L AO ADM SS Creatinine [Mass/Vol] 1.04 mg/dL Invalid Interpretation Code 0.70 - 1.30 mg/dL AO ADM SS Electrolyte Balance 12.0 mEq/L Invalid Interpretation Code 4.0 - 15.0 mEq/L AO ADM SS Globulin 3.2 G/dL Invalid Interpretation Code AO ADM SS Glucose [Mass/Vol] 100 mg/dL Invalid Interpretation Code 80 - 115 mg/dL AO ADM SS Potassium [Moles/Vol] 4.6 mmol/L Invalid Interpretation Code 3.5 - 5.1 mmol/L AO ADM SS Protein [Mass/Vol] 7.2 G/dL Invalid Interpretation Code 6.4 - 8.2 G/dL AO ADM SS Sodium [Moles/Vol] 143 mmol/L Invalid Interpretation Code 136 - 145 mmol/L AO ADM SS Triglyceride [Mass/Vol] 155 mg/dL Invalid Interpretation Code 0 - 150 mg/dL AO ADM SS Urea nitrogen [Mass/Vol] 21 mg/dL Invalid Interpretation Code 7 - 18 mg/dL AO ADM SS Urea nitrogen/Creatinine [Mass ratio] 20 ratio Invalid Interpretation Code 7 - 27 ratio AO ADM SS LABORATORYOrdered By: SYSTEM SYSTEM on 11-05-2021 GFR 87 ml/min/1.73sqm Invalid Interpretation Code AO Chemistry S GFR Non- 72 ml/min/1.73sqm Invalid Interpretation Code AO Chemistry S CNNURSEon 12-06-2017 CNNURSE Nurse Visit (AGCARDWST) TRACY CARDOSO ([id number]) 1955 MDate Time Provider Department12/06/17 4:45 PM NURSE CARD FELICITA WALLER During your visit today, we recorded the following information about you:Samira Gavin MA 12/06/2017 5:08 PM SignedLifeWatch holter plus applied and instructions given.Patient notified and verbalized understanding.Stacey Francis Provider: DANIEL FERRELL [[id number]]Allergies As of Date: 12/06/2017(No Known Allergies)Date Reviewed: 09/09/2017Reviewed by: Trung (Rn)(Hist) RYAN Rodriguez - Fully AssessedReason for Visit: Nurse Visit [792]Primary Visit Diagnosis:Palpitation [R00.2]Prescriptions as of 12/06/2017 Sig: METOPROLOL SUCCINATE ER 25 MG* Take 2 tablets by mouth once * SIMVASTATIN 10 MG TABLET Take 10 mg by mouth daily at * ASPIRIN 81 MG TABLET,DELAYED * Take 1 tablet by mouth once d* FLUOXETINE 10 MG CAPSULE Take 1 capsule by mouth once * LORATADINE 10 MG TABLET Take 1 tablet by mouth once d* LORAZEPAM 0.5 MG TABLET Take 1 tablet by mouth at bed* WAFSORVC-GGAJNHHD-CUGDKON- LIP* Take 1 capsule by mouth once *Problem List As Of Date 12/06/2017 Noted Resolved Abdominal pain, chronic, right upper quadrant [* Diverticulosis of colon (without mention of hem*INVALID FOR* Fatty liver [K76.0] INVALID FOR* More... Numbness [R20.0] INVALID FOR* More... Hyperlipidemia [E78.5] INVALID FOR* Cough [R05] INVALID FOR* More... Tinnitus [H93.19] INVALID FOR* More... Low back pain [M54.5] INVALID FOR* Leg numbness [R20.0] INVALID FOR* Status:Closed by SAMIRA GAVIN MA on 12/06/17 [facility] PROGRESSon 12-06-2017 PROGRESS HNO ID: [id number] thor: Samira Rosales) DwainkeyService: (none)Author Type: Medical AssistantType: Progress NotesFiled: 12/06/2017 5:08 PMNote Text:LifeWatch holter plus applied and instructions given.Patient notified and verbalized understanding.Samira Gavin MA [facility] CNOVon 09-09-2017 CNOV Office Visit (AGCARDWST) TRACY CARDOSO ([id number]) 1955 MDate Time Provider Department09/09/17 2:00 PM DANIEL FERRELL During your visit today, we recorded the following information about you: Pulse Blood pressure Weight Height 80/minute 138/92 94.5 kg 1.651 Jed Ferrell MD 09/09/2017 3:42 PM SignedPERTINENT CARDIAC HISTORYChest painHLHTNObesityAmaurosis 2016 - no recurrenceCough syncopeADHERENCE TO GUIDELINESACE-I or ARB for HF with prior LVEFANDlt;40 (NQF 0081) - N/AASA or Plavix for ASHD (NQF 0067) - metBeta zina for ASHD with prior CA or prior LVEFANDlt;40 (NQF 0070) - N/ABeta zina for HF with prior LVEFANDlt;40 (NQF 0083) - N/AACE-I or ARB for ASHD with DM or prior LVEFANDlt;40 (NQF 0066) - N/AStatin therapy for ASHD or FHL or DM - metBMI documented and plan if ANDgt;25 (NQF 0421) - lifestyle recommendation formTobacco use screening and referral (NQF 0028) - lifestyle recommendation formRecommendation for whole food, plant based diet - lifestyle recommendation formCLINICAL IMPRESSION/PLAN:Tracy Cardoso has stable hypertrophic heart disease. He will undergoechocardiogram to follow-up LV function and LVH. I've asked him to check bloodpressures daily at home and contact me. He would likely benefit frominstitution of antihypertensive therapy. I would suggest losartan as the firstagent to try. If it induces cough, we will need to try an alternative, in viewof his cough syncope.Exercise tolerance has been stable, although limited. We will considerrepeating a stress test, particularly in view of his coronary calcification.Pharmacologi c nuclear test would be test of choice, given his back pain andinability to walk briskly.He has significant bilateral carotid plaque and coronary calcification. Hisprevious episode of amaurosis is currently untreated. I advised him to resumeaspirin 81 milligrams daily and notify me if the symptoms recur.He's been encouraged to try to seek treatment for his sleep apnea. It will bevery difficult to control blood pressure and his weight with untreated sleepapnea.He has been advised to increase his exercise as much as possible.I will see him in 6 months or as needed. He is advised to call if he hasincreased shortness of breath or chest discomfort.Written and verbal health teaching given to patient, patient verbalizesunderstanding and agrees with treatment plan.This note was generated using [employer] voice recognition system, and there may besome incorrect words, spellings, and punctuation that were not noted inchecking the note before saving.DIAGNOSIS FOR VISIT:HypertensionDiastoli c dysfunctionHISTORY OF PRESENT ILLNESSTim Ambika Cardoso is a 62-year-old gentleman who was previously seen in ouroffice for second opinion regarding a diagnosis of heart failure which hereceived from Dr. South many years ago. He is known to have chronichypertension with left ventricular hypertrophy. He was seen in our office acouple times and then lost to follow-up. On his last visit, stress test wasrecommended, but was never scheduled.He now presents to get a checkup and make sure that his heart is still okay. Hedenies chest discomfort. He's been under some emotional stress at home with hisfamily situation. Overall, he reports that any chest discomfort he has had hasimproved. Exercise tolerance has been stable. He is limited somewhat by spinalstenosis. He has shortness of breath with moderate to vigorous activity. Hedenies edema, TIAs, claudication, palpitations.He has had a chronic problem with cough syncope. This also bothers him when helaughs very hard. He is learning to protect himself.He has had one episode of amaurosis in the past. He underwent carotid Dopplerexamination. This showed no high-grade disease. He has not been taking aspirin.He has sleep apnea but has not been able to tolerate any of multiple devices.ALLERGIES:IJEOMA Lassiter Known AllergiesCURRENT OUTPATIENT MEDICATIONS:simvastatin (ZOCOR) 10 mg tablet Take 10 mg by mouth daily at bedtime.LORazepam (ATIVAN) 0.5 mg tab Take 1 tablet by mouth at bedtime as needed(anxiety).bacillus-p twcoman-ynthie-iotcn (DIGESTIVE ADVANTAGE INTENS BOW) 1 billion cell-30,000 unit cap Take 1 capsule by mouth once daily.FLUoxetine (PROZAC) 10 mg capsule Take 1 capsule by mouth once daily.loratadine (CLARITIN) 10 mg tablet Take 1 tablet by mouth once daily.PAST MEDICAL HISTORYDiagnosis Date- Abdominal pain, chronic, right upper quadrant- Asthma past- Bronchitis past- Diverticulosis of colon (without mention of hemorrhage)PAST SURGICAL HISTORYProcedure Laterality Date- COLONOSCOP W/ OR W/O BRSH SPEC 06/24/2012 Colonoscopy- EGD W/O OR W/BRUSH/WASH EGD Dr. 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 Respiratory: No productivecough. Cardiac: As noted above. GI: No melena. : No dysuria.Musculoskeletal: No myalgias. Neurologic: No strokes. Psychiatric: Nodepression. Endocrine: No diabetes. Hematologic: No anemia.PHYSICAL EXAMINATION: S/he is alert and in no distressVITAL SIGNS: BP 138/92 Pulse 80 Ht 5' 5ANDquot; (1.65m) Wt 208 lb 4.8 oz(94.5kg) BMI 34.66 kg/(m2).SHEENT: Skin is warm and dry. Pupils are round and reactive. Retinal vesselsare grossly unremarkable. No xanthelasmas appreciated. Pharynx is benign.There is no oral cyanosis. Neck: supple. No adenopathy or thyroidenlargement. Chest: Clear to percussion and auscultation. Trachea is midline. Air entry is equal. There is no chest wall tenderness. Cardiac: Regularrhythm. S1 and S2 are normal. PMI is nondisplaced. There is a soft Y5ftcgja. There is a soft systolic ejection murmur. No click is heard. Carotidsare brisk without bruits. JVP is less than 10 cm. Abdomen: Soft andnontender. Obesity precludes adequate examination There are no pulsatile massesor bruits. No liver enlargement. Bowel sounds are active. : Deferred.Extremities: No edema. Pulses are intact and symmetrical. No clubbing orcyanosis. No femoral bruits. Neurologic: Grossly normal motor and sensory.S/he is alert and oriented x4. Musculoskeletal: No joint deformities.EKG shows sinus rhythm and is within normal limits.Recent studies were reviewed. Carotid Doppler showed bilateral plaque but nohigh-grade disease. He has not recently been taking blood pressure medication.Lisinopril was associated with a cough.Stress test performed in 2009 showed low normal ejection fraction. There was noevidence of ischemia.CT of the thorax showed basilar atelectasis. There is no evidence ofinterstitial disease (he has a previous history of chlorine exposure at work).There is evidence of coronary calcification.Prior echocardiogram showed mild LVH. There is no significant valvular disease.Recent laboratory studies were reviewed. Renal function is normal. LDL was 83.Electronically Signed:Daniel Ferrell MDSeptember 09, 2017 2:25 [facility]: Sheila Arteaga MD 09/09/2017 2:26 PM SignedLIFESTYLE CHANGEA healthy lifestyle is the most important component of your overall treatmentplan. Please give serious thought to the following areas and commit to makinglong term changes.EAT A WHOLE FOOD, PLANT BASED DIETThe nutrition your body gets is more important than the medicine you take.What matters most is the overall way you eat. We encourage you to minimize theuse of animal products (which include dairy and all meats except fatty fish)and use whole, unprocessed plant foods to provide your protein, vitamins andother nutrients. We have a lot of information to share with you on this topic. We also hold Shared Medical Appointments, where you can come visit with in the company of other patients and spend over an hour talking aboutthe challenges of changing the way you eat. This is not a ANDquot;dietANDquot;.It is a way of life that you will keep with you.EXERCISE REGULARLYIt is not important to spend hours in the gym, lifting weights and perspiringheavily. A total of 2-3 hours per week of aerobic (causing you to bemoderately short of breath) exercise is sufficient to improve your health.Talk to us before you begin a new exercise program, if you have heart diseaseor experience shortness of breath or chest pain.REDUCE STRESSChronic emotional and physical stress leads to disease. Ways of reducingstress include meditation, visualization, prayer, yoga and other forms ofrelaxation therapy. Consistency is the allan. Find a technique that works foryou and do it every day.CULTIVATE RELATIONSHIPSLoneliness and isolation have a major negative impact on health. Seek outothers who can love, care for and nurture you. Avoid hurtful relationships.MAINTAIN IDEAL BODY WEIGHTThe best way to do this is to do all the things above. Our bodies naturallyfind the right weight if we keep moving and feed ourselves the right food. Ifyour BMI is greater than 25, we strongly recommend a referral to a weightmanagement program. Please speak to us or your family physician aboutavailable programs.AVOID NICOTINE IN ALL FORMSThis includes all tobacco products, whether chewed, smoked, vaped, or rubbed onthe skin. Smoking cessation programs, which can make use of tobaccosubstitutes, medications to suppress cravings and behavior management, areavailable. Please contact your family physician about programs in your area.Trung Rodriguez RN, RN 09/10/2017 8:27 AM SignedCopy of OV note mailed to Dr. Beasley's office.Referring Provider: SELF [[id number]]Allergies As of Date: 09/09/2017(No Known Allergies)Date Reviewed: 09/09/2017Reviewed by: Trung Lobo) RYAN Rodriguez - Fully AssessedReason for Visit: New Patient [172]Primary Visit Diagnosis:Essential hypertension [I10] Other Visit Diagnosis:Chest pain, unspecified type [R07.9]Order(s):ECG B/O W INTERP (MED OFFICE) [ECG06] Order #: [id number] ECHO [852112] Order #: [id number]: 1 FUTURE aspirin, enteric coated (ADULT LOW DOSE ASPIRIN) 81 mg EC tabletTake 1 tablet by mouth once daily.Disp: Rfl:Prescriptions as of 09/09/2017 Sig: SIMVASTATIN 10 MG TABLET Take 10 mg by mouth daily at * LORAZEPAM 0.5 MG TABLET Take 1 tablet by mouth at bed* ASOIDKJI-MISMCMLI-EWCLDZE- LIP* Take 1 capsule by mouth once * ASPIRIN 81 MG TABLET,DELAYED * Take 1 tablet by mouth once d* FLUOXETINE 10 MG CAPSULE Take 1 capsule by mouth once * LORATADINE 10 MG TABLET Take 1 tablet by mouth once d*Problem List As Of Date 09/09/2017 Noted Resolved Abdominal pain, chronic, right upper quadrant [* Diverticulosis of colon (without mention of hem*INVALID FOR* Fatty liver [K76.0] INVALID FOR* More... Numbness [R20.0] INVALID FOR* More... Hyperlipidemia [E78.5] INVALID FOR* Cough [R05] INVALID FOR* More... Tinnitus [H93.19] INVALID FOR* More... Low back pain [M54.5] INVALID FOR* Leg numbness [R20.0] INVALID FOR* Other instructions from your clinician: LIFESTYLE CHANGE A healthy lifestyle is the most important component of your overall treatment plan. Please give serious thought to the following areas and commit to making prison changes. EAT A WHOLE FOOD, PLANT BASED DIET The nutrition your body gets is more important than the medicine you take. What matters most is the overall way you eat. We encourage you to minimize the use of animal products (which include dairy and all meats except fatty fish) and use whole, unprocessed plant foods to provide your protein, vitamins and other nutrients. We have a lot of information to share with you on this topic. We also hold Shared Medical Appointments, where you can come visit with Dr. Ferrell in the company of other patients and spend over an hour talking about the challenges of changing the way you eat. This is not a diet. It is a way of life that you will keep with you. EXERCISE REGULARLY It is not important to spend hours in the gym, lifting weights and perspiring heavily. A total of 2-3 hours per week of aerobic (causing you to be moderately short of breath) exercise is sufficient to improve your health. Talk to us before you begin a new exercise program, if you have heart disease or experience shortness of breath or chest pain. REDUCE STRESS Chronic emotional and physical stress leads to disease. Ways of reducing stress include meditation, visualization, prayer, yoga and other forms of relaxation therapy. Consistency is the allan. Find a technique that works for you and do it every day. CULTIVATE RELATIONSHIPS Loneliness and isolation have a major negative impact on health. Seek out others who can love, care for and nurture you. Avoid hurtful relationships. MAINTAIN IDEAL BODY WEIGHT The best way to do this is to do all the things above. Our bodies naturally find the right weight if we keep moving and feed ourselves the right food. If your BMI is greater than 25, we strongly recommend a referral to a weight management program. Please speak to us or your family physician about available programs. AVOID NICOTINE IN ALL FORMS This includes all tobacco products, whether chewed, smoked, vaped, or rubbed on the skin. Smoking cessation programs, which can make use of tobacco substitutes, medications to suppress cravings and behavior management, are available. Please contact your family physician about programs in your area.Visit Notes:>> Trung (Ryan) RYAN Rodriguez WedSep 10, 2017 8:26 AM Status: SignedCopy of OV note mailed to Dr. Beasley's office.Prescriptions ordered this encounter Disp Refills Start End ASPIRIN 81 MG TABLET,DELAYED RELEASE 09/09/2017 Class: Med Update Route: ORAL Sig: Take 1 tablet by mouth once daily.Medications Discontinued During This Encounter atorvastatin calcium(LIPITOR 10 MG T* 0 11/08/2007 09/09/2017 Class: Historical Med Route: ORAL Sig: Take one(1) tablet daily. Disc: Reason for discontinue is not on file. simethicone, chewable (GAS-X) 80 mg * 0 11/30/2014 09/09/2017 Class: Historical Med Route: ORAL Sig: Take 1 tablet by mouth every 6 hours as needed. Disc: Reason for discontinue is not on file.Classic SmartForms filed during this visit:Extended VitalsEncounter Number: [id number] Status:Closed by DANIEL FERRELL MD on 09/09/17 [facility] PROGRESSon 09-09-2017 PROGRESS HNO ID: [id number] thor: Daniel Smith: (none)Author Type: PhysicianType: Progress NotesFiled: 09/09/2017 3:42 PMNote Text:PERTINENT CARDIAC HISTORYChest painHLHTNObesityAmaurosis 2016 - no recurrenceCough syncopeADHERENCE TO GUIDELINESACE-I or ARB for HF with prior LVEF<40 (NQF 0081) - N/AASA or Plavix for ASHD (NQF 0067) - metBeta zina for ASHD with prior CA or prior LVEF<40 (NQF 0070) - N/ABeta zina for HF with prior LVEF<40 (NQF 0083) - N/AACE-I or ARB for ASHD with DM or prior LVEF<40 (NQF 0066) - N/AStatin therapy for ASHD or FHL or DM - metBMI documented and plan if >25 (NQF 0421) - lifestyle recommendation formTobacco use screening and referral (NQF 0028) - lifestyle recommendationformRecommen dation for whole food, plant based diet - lifestyle recommendationformCLINICAL IMPRESSION/PLAN:Tracy Cardoso has stable hypertrophic heart disease. He will undergoechocardiogram to follow-up LV function and LVH. I've asked him to checkblood pressures daily at home and contact me. He would likely benefit frominstitution of antihypertensive therapy. I would suggest losartan as thefirst agent to try. If it induces cough, we will need to try analternative, in view of his cough syncope.Exercise tolerance has been stable, although limited. We will considerrepeating a stress test, particularly in view of his coronarycalcification. Pharmacologic nuclear test would be test of choice, givenhis back pain and inability to walk briskly.He has significant bilateral carotid plaque and coronary calcification.His previous episode of amaurosis is currently untreated. I advised him toresume aspirin 81 milligrams daily and notify me if the symptoms recur.He's been encouraged to try to seek treatment for his sleep apnea. It willbe very difficult to control blood pressure and his weight with untreatedsleep apnea.He has been advised to increase his exercise as much as possible.I will see him in 6 months or as needed. He is advised to call if he hasincreased shortness of breath or chest discomfort.Written and verbal health teaching given to patient, patient verbalizesunderstanding and agrees with treatment plan.This note was generated using Dragon voice recognition system, and theremay be some incorrect words, spellings, and punctuation that were notnoted in checking the note before saving.DIAGNOSIS FOR VISIT:HypertensionDiastoli c dysfunctionHISTORY OF PRESENT ILLNESSTracy Cardoso is a 62-year-old gentleman who was previously seen in ouroffice for second opinion regarding a diagnosis of heart failure which hereceived from Dr. South many years ago. He is known to have chronichypertension with left ventricular hypertrophy. He was seen in our officea couple times and then lost to follow-up. On his last visit, stress testwas recommended, but was never scheduled.He now presents to get a checkup and make sure that his heart is stillokay. He denies chest discomfort. He's been under some emotional stress athome with his family situation. Overall, he reports that any chestdiscomfort he has had has improved. Exercise tolerance has been stable. Heis limited somewhat by spinal stenosis. He has shortness of breath withmoderate to vigorous activity. He denies edema, TIAs, claudication,palpitations. He has had a chronic problem with cough syncope. This also bothers himwhen he laughs very hard. He is learning to protect himself.He has had one episode of amaurosis in the past. He underwent carotidDoppler examination. This showed no high-grade disease. He has not beentaking aspirin.He has sleep apnea but has not been able to tolerate any of multipledevices.ALLERGIES: ALLERGIESNo Known AllergiesCURRENT OUTPATIENT MEDICATIONS:simvastatin (ZOCOR) 10 mg tablet Take 10 mg by mouth daily at bedtime.LORazepam (ATIVAN) 0.5 mg tab Take 1 tablet by mouth at bedtime as needed(anxiety).bacillus-p cmxafog-wuhjzs-rgxsf (DIGESTIVE ADVANTAGE INTENS BOW) 1 billioncell- 30,000 unit cap Take 1 capsule by mouth once daily.FLUoxetine (PROZAC) 10 mg capsule Take 1 capsule by mouth once daily.loratadine (CLARITIN) 10 mg tablet Take 1 tablet by mouth once daily.PAST MEDICAL HISTORYDiagnosis Date- Abdominal pain, chronic, right upper quadrant- Asthma past- Bronchitis past- Diverticulosis of colon (without mention of hemorrhage)PAST SURGICAL HISTORYProcedure Laterality Date- COLONOSCOP W/ OR W/O [facility] SPEC 06/24/2012 Colonoscopy- EGD W/O OR W/BRUSH/WASH EGD Dr. 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 SHEENT: No change in vision or auditory acuity. Respiratory: Noproductive cough. Cardiac: As noted above. GI: No melena. : Nodysuria. Musculoskeletal: No myalgias. Neurologic: No strokes.Psychiatric: No depression. Endocrine: No diabetes. Hematologic: Noanemia.PHYSICAL EXAMINATION: S/he is alert and in no distressVITAL SIGNS: BP 138/92 Pulse 80 Ht 5' 5 (1.65m) Wt 208 lb 4.8 oz(94.5kg) BMI 34.66 kg/(m2).SHEENT: Skin is warm and dry. Pupils are round and reactive. Retinalvessels are grossly unremarkable. No xanthelasmas appreciated. Pharynxis benign. There is no oral cyanosis. Neck: supple. No adenopathy orthyroid enlargement. Chest: Clear to percussion and auscultation.Trachea is midline. Air entry is equal. There is no chest walltenderness. Cardiac: Regular rhythm. S1 and S2 are normal. PMI isnondisplaced. There is a soft S4 gallop. There is a soft systolicejection murmur. No click is heard. Carotids are brisk without bruits.JVP is less than 10 cm. Abdomen: Soft and nontender. Obesity precludesadequate examination There are no pulsatile masses or bruits. No liverenlargement. Bowel sounds are active. : Deferred. Extremities: Noedema. Pulses are intact and symmetrical. No clubbing or cyanosis. Nofemoral bruits. Neurologic: Grossly normal motor and sensory. S/he isalert and oriented x4. Musculoskeletal: No joint deformities.EKG shows sinus rhythm and is within normal limits.Recent studies were reviewed. Carotid Doppler showed bilateral plaque butno high-grade disease. He has not recently been taking blood pressuremedication. Lisinopril was associated with a cough.Stress test performed in 2009 showed low normal ejection fraction. Therewas no evidence of ischemia.CT of the thorax showed basilar atelectasis. 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 There is evidence of coronary calcification.Prior echocardiogram showed mild LVH. There is no significant valvulardisease.Recent laboratory studies were reviewed. Renal function is normal. LDL was83.Electronically Signed:Daniel Ferrell MDSeptember 09, 2017 2:25 PMCC: Lauri Beasley MD [facility] Vital Signs Date Time Vital Sign Value Performing Clinician Facility 04-26-2025 15:56-0400 Body height 166.[address] Regis Phillips DO Work Phone: [facility] 04-26-2025 15:56-0400 Body mass index (BMI) [Ratio] 33.3 kg/m2 Dr. Regis Phillips DO Work Phone: [facility] 04-26-2025 15:56-0400 Body weight 92.[address] Regis Phillips DO Work Phone: [facility] 04-26-2025 15:56-0400 Diastolic blood pressure 84 mm[Hg] Dr. Regis Phillips DO Work Phone: [facility] 04-26-2025 15:56-0400 Heart rate 81 /min Dr. Regis Phillips DO Work Phone: [facility] 04-26-2025 15:56-0400 Respiratory rate 16 /min Dr. Regis Phillips DO Work Phone: [facility] 04-26-2025 15:56-0400 Systolic blood pressure 166 mm[Hg] Dr. Regis Phillips DO Work Phone: [facility] 03-01-2025 15:31-0400 Body height 166.[address] Regis Phillips DO Work Phone: [facility] 03-01-2025 15:31-0400 Body mass index (BMI) [Ratio] 32.1 kg/m2 Dr. Regis Phillips DO Work Phone: [facility] 03-01-2025 15:31-0400 Body weight 88.[address] Regis Phillips DO Work Phone: [facility] 02-15-2025 14:25-0400 Body height 166.[address] Regis Phillips DO Work Phone: [facility] 02-15-2025 14:25-0400 Body mass index (BMI) [Ratio] 32.3 kg/m2 Dr. Regis Phillips DO Work Phone: [facility] 02-15-2025 14:25-0400 Body weight 89.[address] Regis Phillips DO Work Phone: [facility] 01-25-2025 14:38-0400 Body height 166.4 cm Yessenia Ayala SHOW HORSE DRIVER - CHIP APPLYING MACHINE TENDER Work Phone: [facility] 01-25-2025 14:38-0400 Body mass index (BMI) [Ratio] 33.2 kg/m2 Yessenia Ayala SHOW HORSE DRIVER - CHIP APPLYING MACHINE TENDER Work Phone: [facility] 01-25-2025 14:38-0400 Body weight 91.9 kg Yessenia Ayala SHOW HORSE DRIVER - CHIP APPLYING MACHINE TENDER Work Phone: [facility] 01-25-2025 14:38-0400 Diastolic blood pressure 80 mm[Hg] Yessenia Ayala SHOW HORSE DRIVER - CHIP APPLYING MACHINE TENDER Work Phone: [facility] 01-25-2025 14:38-0400 Heart rate 69 /min Yessenia Ayala SHOW HORSE DRIVER - CH[employer] APPLYING MACHINE TENDER Work Phone: [facility] 01-25-2025 14:38-0400 Systolic blood pressure 129 mm[Hg] Yessenia Ayala SHOW HORSE DRIVER - CHIP APPLYING MACHINE TENDER Work Phone: [facility] 12-04-2024 14:30-0400 Body height 166.4 cm Yessenia Ayala SHOW HORSE DRIVER - CHIP APPLYING MACHINE TENDER Work Phone: [facility] 12-04-2024 14:30-0400 Body mass index (BMI) [Ratio] 34.18 kg/m2 Yessenia Ayala SHOW HORSE DRIVER - CHIP APPLYING MACHINE TENDER Work Phone: [facility] 12-04-2024 14:30-0400 Body weight 94.62 kg Yessenia Ayala SHOW HORSE DRIVER - CHIP APPLYING MACHINE TENDER Work Phone: [facility] 12-04-2024 14:30-0400 Diastolic blood pressure 78 mm[Hg] Yessenia Ayala SHOW HORSE DRIVER - CHIP APPLYING MACHINE TENDER Work Phone: [facility] 12-04-2024 14:30-0400 Heart rate 60 /min Yessenia Ayala SHOW HORSE DRIVER - CH[employer] APPLYING MACHINE TENDER Work Phone: [facility] 12-04-2024 14:30-0400 Systolic blood pressure 134 mm[Hg] Yessenia Ayala SHOW HORSE DRIVER - CH[employer] APPLYING MACHINE TENDER Work Phone: [facility] 12-01-2024 11:23-0400 Body mass index (BMI) [Ratio] 33.5 kg/m2 Dr. Regis Phillips DO Work Phone: [facility] 12-01-2024 11:23-0400 Body weight 92.[address] Regis Phillips DO Work Phone: [facility] 12-01-2024 11:23-0400 Diastolic blood pressure 73 mm[Hg] Dr. Regis Phillips DO Work Phone: [facility] 12-01-2024 11:23-0400 Heart rate 72 /min Dr. Regis Phillips DO Work Phone: [facility] 12-01-2024 11:23-0400 Respiratory rate 16 /min Dr. Regis Phillips DO Work Phone: [facility] 12-01-2024 11:23-0400 Systolic blood pressure 120 mm[Hg] Dr. Regis Phillips DO Work Phone: [facility] 10-04-2024 11:10-0500 Body height 166.4 cm Yesseniasoren Ayala SHOW HORSE DRIVER - CHIP APPLYING MACHINE TENDER Work Phone: [facility] 10-04-2024 11:10-0500 Body mass index (BMI) [Ratio] 34.48 kg/m2 Yessenia Lucy SHOW HORSE DRIVER - CHIP APPLYING MACHINE TENDER Work Phone: [facility] 10-04-2024 11:10-0500 Body weight 95.44 kg Yessenia Lucy SHOW HORSE DRIVER - [employer] APPLYING MACHINE TENDER Work Phone: [facility] 10-04-2024 11:10-0500 Diastolic blood pressure 89 mm[Hg] Yessenia Lucy SHOW HORSE DRIVER - CH[employer] APPLYING MACHINE TENDER Work Phone: [facility] 10-04-2024 11:10-0500 Heart rate 69 /min Yessenia Lucy SHOW HORSE DRIVER - CH[employer] APPLYING MACHINE TENDER Work Phone: [facility] 10-04-2024 11:10-0500 Systolic blood pressure 139 mm[Hg] Yessenia Lucy SHOW HORSE DRIVER - CH[employer] APPLYING MACHINE TENDER Work Phone: [facility] 08-01-2024 09:56-0500 Body height 166.4 cm Yessenia Lucy SHOW HORSE DRIVER - CHIP APPLYING MACHINE TENDER Work Phone: [facility] 08-01-2024 09:56-0500 Body mass index (BMI) [Ratio] 34.28 kg/m2 Yessenia Lucy SHOW HORSE DRIVER - CHIP APPLYING MACHINE TENDER Work Phone: [facility] 08-01-2024 09:56-0500 Body weight 94.89 kg Yessenia Lucy SHOW HORSE DRIVER - CH[employer] APPLYING MACHINE TENDER Work Phone: [facility] 08-01-2024 09:56-0500 Diastolic blood pressure 82 mm[Hg] Yessenia Lucy SHOW HORSE DRIVER - CH[employer] APPLYING MACHINE TENDER Work Phone: [facility] 08-01-2024 09:56-0500 Heart rate 71 /min Yessenia Ayala SHOW HORSE DRIVER - CH[employer] APPLYING MACHINE TENDER Work Phone: [facility] 08-01-2024 09:56-0500 Systolic blood pressure 137 mm[Hg] Yessenia Ayala SHOW HORSE DRIVER - CHIP APPLYING MACHINE TENDER Work Phone: [facility] 06-20-2024 10:06-0500 Body height 166.4 cm Yessenia Ayala SHOW HORSE DRIVER - CHIP APPLYING MACHINE TENDER Work Phone: [facility] 06-20-2024 10:06-0500 Body mass index (BMI) [Ratio] 33.63 kg/m2 Yessenia Leeslellan SHOW HORSE DRIVER - CH[employer] APPLYING MACHINE TENDER Work Phone: [facility] 06-20-2024 10:06-0500 Body weight 93.08 kg Yessenia Ayala SHOW HORSE DRIVER - CH[employer] APPLYING MACHINE TENDER Work Phone: [facility] 06-20-2024 10:06-0500 Diastolic blood pressure 83 mm[Hg] Yessenia Ayala SHOW HORSE DRIVER - CH[employer] APPLYING MACHINE TENDER Work Phone: [facility] 06-20-2024 10:06-0500 Heart rate 68 /min Yessenia Ayala SHOW HORSE DRIVER - CH[employer] APPLYING MACHINE TENDER Work Phone: [facility] 06-20-2024 10:06-0500 Systolic blood pressure 144 mm[Hg] Yessenia Ayala SHOW HORSE DRIVER - CH[employer] APPLYING MACHINE TENDER Work Phone: [facility] 05-26-2024 10:19-0400 Body height 166.4 cm Yessenia Ayala SHOW HORSE DRIVER - CH[employer] APPLYING MACHINE TENDER Work Phone: [facility] 05-26-2024 10:19-0400 Body mass index (BMI) [Ratio] 31.79 kg/m2 Yessenia Ayala SHOW HORSE DRIVER - CH[employer] APPLYING MACHINE TENDER Work Phone: [facility] 05-26-2024 10:19-0400 Body weight 88 kg Yessenia Leeslellan SHOW HORSE DRIVER - CH[employer] APPLYING MACHINE TENDER Work Phone: [facility] 05-26-2024 10:19-0400 Diastolic blood pressure 79 mm[Hg] Yessenia Leeslellan SHOW HORSE DRIVER - CHIP APPLYING MACHINE TENDER Work Phone: [facility] 05-26-2024 10:19-0400 Heart rate 85 /min Yessenia Ayala SHOW HORSE DRIVER - CH[employer] APPLYING MACHINE TENDER Work Phone: [facility] 05-26-2024 10:19-0400 Systolic blood pressure 143 mm[Hg] Yessenia Leeslellan SHOW HORSE DRIVER - CHIP APPLYING MACHINE TENDER Work Phone: [facility] 04-27-2024 07:42-0400 Heart rate 84 /min DAVID RYDER MD [facility] 04-27-2024 07:40-0400 Diastolic Blood Pressure Non-Invasive 77 mm[Hg] DAVID RYDER MD [address] 04-27-2024 07:40-0400 Systolic Blood Pressure Non-Invasive 134 mm[Hg] DAVID RYDER MD [address] 04-27-2024 06:16-0400 Blood Pressure Cuff Size DAVID RYDER MD [address] 04-27-2024 06:16-0400 Blood Pressure Location DAVID RYDER MD [facility] 04-27-2024 06:16-0400 Blood Pressure Method DAVID RYDER MD [facility] 04-27-2024 06:16-0400 Body temperature 98.96 [degF] DAVID RYDER MD [address] 04-27-2024 06:16-0400 Diastolic Blood Pressure Non-Invasive 70 mm[Hg] DAVID RYDER MD [facility] 04-27-2024 06:16-0400 Heart rate 82 /min DAVID RYDER MD [facility] 04-27-2024 06:16-0400 Reason For Taking VItal Signs DAVID RYDER MD [address] [place] [address] 04-27-2024 06:16-0400 Respiratory rate 18 /min DAVID RYDER MD [address] [place] [address] 04-27-2024 06:16-0400 Systolic Blood Pressure Non-Invasive 123 mm[Hg] DAVID RYDER MD [address] [place] [address] 04-27-2024 02:53-0400 Blood Pressure Cuff Size DAVID RYDER MD [address] [place] [address] 04-27-2024 02:53-0400 Blood Pressure Location DAVID RYDER MD [address] [place] [address] 04-27-2024 02:53-0400 Blood Pressure Method DAVID RYDER MD [address] [place] [address] 04-27-2024 02:53-0400 Body temperature 97.88 [degF] DAVID RYDER MD [address] [place] [address] 04-27-2024 02:53-0400 Diastolic Blood Pressure Non-Invasive 70 mm[Hg] DAVID RYDER MD [address] [place] [address] 04-27-2024 02:53-0400 Heart rate 90 /min DAVID RYDER MD [address] [place] [address] 04-27-2024 02:53-0400 Reason For Taking VItal Signs DAVID RYDER MD [address] [place] [address] 04-27-2024 02:53-0400 Respiratory rate 18 /min DAVID RYDER MD [address] [place] [address] 04-27-2024 02:53-0400 Systolic Blood Pressure Non-Invasive 150 mm[Hg] DAVID RYDER MD [address] [place] [address] 04-27-2024 00:13-0400 Blood Pressure Cuff Size DAVID RYDER MD [address] [place] [address] 04-27-2024 00:13-0400 Blood Pressure Location DAVID RYDER MD [address] [place] [address] 04-27-2024 00:13-0400 Blood Pressure Method DAVID RYDER MD [address] [place] [address] 04-26-2024 22:30-0400 Body temperature 98.06 [degF] DAVID RYDER MD [address] [place] [address] 04-26-2024 22:30-0400 Heart rate 89 /min DAVID RYDER MD [address] [place] [address] 04-26-2024 22:30-0400 Mean blood pressure 102 mm[Hg] DAVID RYDER MD [address] [place] [address] 04-26-2024 22:30-0400 Reason For Taking VItal Signs DAVID RYDER MD [address] [place] [address] 04-26-2024 22:30-0400 Respiratory rate 18 /min DAVID RYDER MD [address] [place] [address] 04-26-2024 19:51-0400 Mean blood pressure 87 mm[Hg] DAVID RYDER MD [address] [place] [address] 04-26-2024 15:22-0400 Mean blood pressure 107 mm[Hg] DAVID RYDER MD [address] [place] [address] 04-26-2024 07:55-0400 Heart rate 61 /min DAVID RYDER MD [address] [place] [address] 04-25-2024 18:14-0400 Heart rate 93 /min DAVID RYDER MD [address] [place] [address] 04-22-2024 07:15-0400 Diastolic blood pressure 78 mm[Hg] DAVID RYDER MD [address] [place] [address] 04-22-2024 07:15-0400 Mean blood pressure 102 mm[Hg] DAVID RYDER MD [address] [place] [address] 04-22-2024 07:15-0400 Systolic blood pressure 138 mm[Hg] DAVID RYDER MD [address] [place] [address] 04-22-2024 05:18-0400 Diastolic blood pressure 78 mm[Hg] DAVID RYDER MD [address] [place] [address] 04-22-2024 05:18-0400 Mean blood pressure 92 mm[Hg] DAVID RYDER MD [address] [place] [address] 04-22-2024 05:18-0400 Systolic blood pressure 110 mm[Hg] DAVID RYDER MD [address] [place] [address] 04-22-2024 03:20-0400 Diastolic blood pressure 65 mm[Hg] DAVID RYDER MD [address] [place] [address] 04-22-2024 03:20-0400 Mean blood pressure 94 mm[Hg] DAVID RYDER MD [address] [place] [address] 04-22-2024 03:20-0400 Systolic blood pressure 138 mm[Hg] DAVID RYDER MD [address] [place] [address] 04-21-2024 10:00-0400 SaO2% (BldA) [Mass fraction] 95.1 % DAVID RYDER MD [address] [place] [address] 04-20-2024 16:05-0400 Signs/Symptoms Transfusion Reaction DAVID RYDER MD [address] [place] [address] 04-20-2024 15:05-0400 Signs/Symptoms Transfusion Reaction No DAVID RYDER MD [address] [place] [address] 04-20-2024 15:05-0400 Diastolic blood pressure 51 mm[Hg] DAVID RYDER MD [address] [place] [address] 04-20-2024 15:05-0400 Heart rate 97 /min DAVID RYDER MD [address] [place] [address] 04-20-2024 15:05-0400 Systolic blood pressure 139 mm[Hg] DAVID RYDER MD [address] [place] [address] 04-20-2024 15:03-0400 Signs/Symptoms Transfusion Reaction DAVID RYDER MD [address] [place] [address] 04-20-2024 12:29-0400 Body height 167 cm DAVID RYDER MD [facility] 04-20-2024 12:29-0400 Body weight 88.1 kg DAVID RYDER MD [facility] 04-20-2024 12:29-0400 Body weight 31.59 kg/m2 DAVID RYDER MD [facility] 04-20-2024 09:21-0400 Diastolic Blood Pressure Non-Invasive 88 mm[Hg] DR SANDEE WINCHESTER MD [facility] 04-20-2024 09:21-0400 Heart rate 69 /min DR SANDEE WINCHESTER MD [facility] 04-20-2024 09:21-0400 Reason For Taking VItal Signs DR SANDEE WINCHESTER MD [facility] 04-20-2024 09:21-0400 Respiratory rate 18 /min DR SANDEE WINCHESTER MD [facility] 04-20-2024 09:21-0400 Systolic Blood Pressure Non-Invasive 153 mm[Hg] DR SANDEE WINCHESTER MD [facility] 04-20-2024 07:47-0400 Diastolic Blood Pressure Non-Invasive 91 mm[Hg] DR SANDEE WINCHESTER MD [facility] 04-20-2024 07:47-0400 Heart rate 70 /min DR SANDEE WINCHESTER MD [facility] 04-20-2024 07:47-0400 Respiratory rate 18 /min DR SANDEE WINCHESTER MD [facility] 04-20-2024 07:47-0400 Systolic Blood Pressure Non-Invasive 133 mm[Hg] DR SANDEE WINCHESTER MD [facility] 04-20-2024 06:38-0400 Body height 165.[address] SANDEE WINCHESTER MD [facility] 04-20-2024 06:38-0400 Body temperature 99.68 [degF] DR SANDEE WINCHESTER MD [facility] 04-20-2024 06:38-0400 Body weight 93.[address] SANDEE WINCHESTER MD [facility] 04-20-2024 06:38-0400 Diastolic Blood Pressure Non-Invasive 92 mm[Hg] DR SANDEE WINCHESTER MD [facility] 04-20-2024 06:38-0400 Heart rate 78 /min DR SANDEE WINCHESTER MD [facility] 04-20-2024 06:38-0400 Respiratory rate 18 /min DR SANDEE WINCHESTER MD [facility] 04-20-2024 06:38-0400 Systolic Blood Pressure Non-Invasive 185 mm[Hg] DR SANDEE WINCHESTER MD [facility] 04-19-2024 16:10-0400 Diastolic Blood Pressure Non-Invasive 80 mm[Hg] DEVAN CASPER MD [facility] 04-19-2024 16:10-0400 Heart rate 56 /min DEVAN CASPER MD [facility] 04-19-2024 16:10-0400 Respiratory rate 16 /min DEVAN CASPER MD [facility] 04-19-2024 16:10-0400 Systolic Blood Pressure Non-Invasive 136 mm[Hg] DEVAN CASPER MD [address] [place] [address] 04-19-2024 13:35-0400 Diastolic Blood Pressure Non-Invasive 88 mm[Hg] DEVAN CASPER MD [address] [place] [address] 04-19-2024 13:35-0400 Heart rate 51 /min DEVAN CASPER MD [address] [place] [address] 04-19-2024 13:35-0400 Respiratory rate 16 /min DEVAN CASPER MD [address] [place] [address] 04-19-2024 13:35-0400 Systolic Blood Pressure Non-Invasive 151 mm[Hg] DEVAN CASPER MD [address] [place] [address] 04-19-2024 06:23-0400 Body weight 33.66 kg/m2 DEVAN CASPER MD [address] [place] [address] 04-19-2024 06:04-0400 Body height 166.4 cm DEVAN CASPER MD [address] [place] [address] 04-19-2024 06:04-0400 Body temperature 98.24 [degF] DEVAN CASPER MD [address] [place] [address] 04-19-2024 06:04-0400 Body weight 93.2 kg DEVAN CASPER MD [address] [place] [address] 04-19-2024 06:04-0400 Diastolic Blood Pressure Non-Invasive 93 mm[Hg] DEVAN CASPER MD [address] [place] [address] 04-19-2024 06:04-0400 Heart rate 63 /min DEVAN CASPER MD [address] [place] [address] 04-19-2024 06:04-0400 Respiratory rate 16 /min DEVAN CASPER MD [address] [place] [address] 04-19-2024 06:04-0400 Systolic Blood Pressure Non-Invasive 165 mm[Hg] DEVAN CASPER MD [address] [place] [address] 04-14-2024 09:37-0400 Body height 166.4 cm Yessenia Lucy SHOW HORSE DRIVER - [employer] APPLYING MACHINE TENDER Work Phone: [facility] 04-14-2024 09:37-0400 Body mass index (BMI) [Ratio] 33.99 kg/m2 Yessenia Ayala SHOW HORSE DRIVER - [employer] APPLYING MACHINE TENDER Work Phone: [facility] 04-14-2024 09:37-0400 Body weight 94.08 kg Yessenia Ayala SHOW HORSE DRIVER - [employer] APPLYING MACHINE TENDER Work Phone: [facility] 04-14-2024 09:37-0400 Diastolic blood pressure 77 mm[Hg] Yessenia Ayala SHOW HORSE DRIVER - [employer] APPLYING MACHINE TENDER Work Phone: [facility] 04-14-2024 09:37-0400 Heart rate 79 /min Yessenia Leeslellan SHOW HORSE DRIVER - [employer] APPLYING MACHINE TENDER Work Phone: [facility] 04-14-2024 09:37-0400 Systolic blood pressure 113 mm[Hg] Yessenia Ayala SHOW HORSE DRIVER - [employer] APPLYING MACHINE TENDER Work Phone: [facility] 12-21-2023 10:26-0400 Body height 166.4 cm Yessenia Ayala SHOW HORSE DRIVER - [employer] APPLYING MACHINE TENDER Work Phone: [facility] 12-21-2023 10:26-0400 Body mass index (BMI) [Ratio] 35.17 kg/m2 Yessenia Ayala SHOW HORSE DRIVER - [employer] APPLYING MACHINE TENDER Work Phone: [facility] 12-21-2023 10:26-0400 Body weight 97.34 kg Yessenia Ayala SHOW HORSE DRIVER - [employer] APPLYING MACHINE TENDER Work Phone: [facility] 12-21-2023 10:26-0400 Diastolic blood pressure 84 mm[Hg] Yessenia Lucy SHOW HORSE DRIVER - CH[employer] APPLYING MACHINE TENDER Work Phone: [facility] 12-21-2023 10:26-0400 Heart rate 106 /min Yessenia Lucy SHOW HORSE DRIVER - [employer] APPLYING MACHINE TENDER Work Phone: [facility] 12-21-2023 10:26-0400 Systolic blood pressure 125 mm[Hg] Yessenia Ayala SHOW HORSE DRIVER - CH[employer] APPLYING MACHINE TENDER Work Phone: [employer] 11-30-2023 09:33-0400 Body height 166.4 cm Lety Fierro MD Work Phone: [employer] [employer] 11-30-2023 09:33-0400 Body mass index (BMI) [Ratio] 34.68 kg/m2 Lety Fierro MD Work Phone: [facility] 11-30-2023 09:33-0400 Body weight 95.98 kg Lety Fierro MD Work Phone: [facility] 11-30-2023 09:33-0400 Diastolic blood pressure 78 mm[Hg] Lety Fierro MD Work Phone: [facility] 11-30-2023 09:33-0400 Heart rate 60 /min Lety Fierro MD Work Phone: [facility] 11-30-2023 09:33-0400 Systolic blood pressure 137 mm[Hg] Lety Fierro MD Work Phone: [facility] 10-07-2023 15:20-0500 Heart rate 83 /min [employer] Work Phone: [employer] 10-07-2023 15:20-0500 SaO2% (BldA) [Mass fraction] 93 % [employer] Work Phone: [employer] 10-07-2023 15:15-0500 Diastolic blood pressure 89 mm[Hg] [employer] Work Phone: [employer] 10-07-2023 15:15-0500 Systolic blood pressure 153 mm[Hg] [employer] Work Phone: [employer] 10-07-2023 14:58-0500 Respiratory rate 16 /min [employer] Work Phone: [employer] 10-07-2023 14:35-0500 Body temperature 98.49 [degF] [employer]illo [employer] Work Phone: [facility] 10-07-2023 08:17-0500 Body height 166.4 cm Castillo Diezighvick BRAGG Work Phone: [facility] 10-07-2023 08:17-0500 Body mass index (BMI) [Ratio] 34.09 kg/m2 Castillo Bourne DO Work Phone: [facility] 10-07-2023 08:17-0500 Body weight 94.35 kg Castillo Bourne DO Work Phone: [facility] 06-04-2023 08:08-0400 Body height 165.1 cm Lety Fierro MD Work Phone: [facility] 06-04-2023 08:08-0400 Body mass index (BMI) [Ratio] 37.01 kg/m2 Lety Fierro MD Work Phone: [facility] 06-04-2023 08:08-0400 Body weight 100.88 kg Lety Fierro MD Work Phone: [facility] 06-04-2023 08:08-0400 Diastolic blood pressure 82 mm[Hg] Lety Fierro MD Work Phone: [facility] 06-04-2023 08:08-0400 Heart rate 65 /min Lety Fierro MD Work Phone: [facility] 06-04-2023 08:08-0400 Systolic blood pressure 144 mm[Hg] Lety Fierro MD Work Phone: [facility] 04-15-2023 07:25-0400 Diastolic blood pressure 75 mm[Hg] Dr. Lauri Beasley Work Phone: [facility] 04-15-2023 07:25-0400 Heart rate 55 /min Dr. Lauri Beasley Work Phone: [facility] 04-15-2023 07:25-0400 Respiratory rate 18 /min Dr. Lauri Beasley Work Phone: [facility] 04-15-2023 07:25-0400 SaO2% (BldA) [Mass fraction] 94 % Dr. Lauri Beasley Work Phone: [facility] 04-15-2023 07:25-0400 Systolic blood pressure 127 mm[Hg] Dr. Lauri Beasley Work Phone: [facility] 04-15-2023 07:10-0400 Body temperature 98 [degF] Dr. Lauri Beasley Work Phone: [facility] 04-15-2023 05:50-0400 Body height 166.[address] Lauri Beasley Work Phone: [facility] 04-15-2023 05:50-0400 Body mass index (BMI) [Ratio] 35.1 kg/m2 Dr. Lauri Beasley Work Phone: [facility] 04-15-2023 05:50-0400 Body weight 97.[address] Lauri Beasley Work Phone: [facility] 03-18-2023 08:30-0400 Body height 166.4 cm Lety Fierro MD Work Phone: [facility] 03-18-2023 08:30-0400 Body mass index (BMI) [Ratio] 36.22 kg/m2 Lety Fierro MD Work Phone: [facility] 03-18-2023 08:30-0400 Body weight 100.25 kg Lety Fierro MD Work Phone: [facility] 03-18-2023 08:30-0400 Diastolic blood pressure 81 mm[Hg] Lety Fierro MD Work Phone: [facility] 03-18-2023 08:30-0400 Heart rate 57 /min Lety Fierro MD Work Phone: [facility] 03-18-2023 08:30-0400 Systolic blood pressure 145 mm[Hg] Lety Fierro MD Work Phone: [facility] 03-12-2023 14:32-0400 Body mass index (BMI) [Ratio] 35.2 kg/m2 Dr. Lauri Beasley Work Phone: [facility] 03-12-2023 [id number] Body weight 97.[address] Lauri Beasley Work Phone: [facility] Encounters Encounter Date Encounter Type Care Provider Facility Start: 06-12-2025 ambulatory [facility]: [facility] Start: 06-08-2025 Encounter for other preprocedural examination Saad Vidales [facility] Start: 2025 End: 2025 ambulatory [facility] [place] Start: 05-03-2025 End: 05-03-[address] Regis Phillips DO Work Phone: -Radiology [facility] Start: 05-03-2025 End: 05-03-2025 Patient encounter procedure Victorino Gonzalez SUPERVISOR [employer]C -Radiology [facility] [place] Work Phone: Start: 05-03-2025 End: 05-03-2025 ambulatory [facility] Start: 04-26-2025 End: 04-26-2025 Patient encounter procedure Victorino VICTOR -[facility] Work Phone: Start: 04-26-2025 End: 04-26-[address] Regis Phillips DO Work Phone: -[facility] Start: 03-01-2025 End: 03-01-2025 Patient encounter procedure Merly AL -[facility] Work Phone: Start: 03-01-2025 End: 03-01-[address] Regis Phillips DO Work Phone: -[facility] Start: 02-22-2025 End: 02-22-[address] Regis Phillips DO Work Phone: -MRI - [facility] [place] Start: 02-22-2025 End: 02-22-2025 Patient encounter procedure Merly AL -[facility] Work Phone: Start: 02-22-2025 End: 02-22-2025 ambulatory Merly Giraldo Facility:[facility] Start: 02-20-2025 End: 02-20-2025 ambulatory REGIS PHILLIPS DO Facility:[facility] Start: 02-20-2025 End: 02-20-2025 Patient encounter procedure REGIS PHILLIPS DO [facility] Start: 02-15-2025 End: 02-15-[address] Tano Goldsmith MD -[facility] Start: 02-15-2025 End: 02-15-[address] Regis Phillips DO Work Phone: -[facility] Start: 02-02-2025 End: 02-02-2025 Emergency department patient visit EARL ASHFORD MD [facility] Start: 02-02-2025 End: 02-02-2025 ambulatory LAURI BEASLEY MD Facility:[facility] Start: 02-02-2025 End: 02-02-2025 Patient encounter procedure LAURI BEASLEY MD [facility] Start: 01-25-2025 End: 01-25-2025 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 Work Phone: [facility] [employer] Comment on above: Obstructive sleep ap jacinto (Primary Dx); Insomnia, unspecified type Start: 12-08-2024 End: 12-08-2024 Patient encounter procedure Eri AL -Laboratory Work Phone: Start: 12-08-2024 End: 12-08-2024 ambulatory Eri AL Facility:[facility] Start: 12-04-2024 End: 12-04-2024 Office outpatient visit 25 minutes Yessenia Ayala SHOW HORSE DRIVER - CHIP APPLYING MACHINE TENDER Work Phone: [facility] Comment on above: Obstructive sleep ap jacinto (Primary Dx); Insomnia, unspecified type Start: 12-04-2024 End: 12-04-2024 ambulatory YESSENIA AYALA [facility] Start: 12-01-2024 End: 12-01-[address] Tano Goldsmith MD -[facility] Work Phone: Start: 12-01-2024 End: 12-01-2024 ambulatory Tano Goldsmith [place] [place] Start: 11-21-2024 End: 11-21-2024 ambulatory REGIS PHILLIPS DO Facility:[facility] Start: 11-07-2024 End: 11-07-2024 ambulatory WILNER MEDEROS SHOW HORSE DRIVER-CHIP APPLYING MACHINE TENDER Facility:[facility] Start: 10-31-2024 End: 10-31-2024 Emergency department patient visit REGIS PHILLIPS DO Facility:[facility] Start: 10-30-2024 ambulatory REGIS PHILLIPS DO Faci lity:[facility] Start: 10-10-2024 End: 10-10-2024 Telephone encounter Yessenia Ayala APRN - KEON Work Phone: [facility] Comment on above: Results Start: 10-06-2024 End: 10-06-2024 Telephone encounter Yessenia Ayala APRN - KEON Work Phone: [facility] Start: 10-04-2024 End: 10-04-2024 Office outpatient visit 25 minutes Yessenia Ayala APRN - CHIP APPLYING MACHINE TENDER Work Phone: [facility] Comment on above: Obstructive sleep ap jacinto (Primary Dx); Insomnia, unspecified type; Cerebrovascular accident (CVA), unspecified mechanism (HCC); Depression, unspecified depression type; Left homonymous hemianopsia Start: 10-04-2024 End: 10-04-2024 ambulatory YESSENIA AYALA [facility] Start: 09-08-2024 End: 09-08-2024 ambulatory WILNER ROSA M SHOW HORSE DRIVER-CHIP APPLYING MACHINE TENDER Facility:A Start: 08-15-2024 End: 08-15-2024 ambulatory WILNER FISH SHOW HORSE DRIVER-CHIP APPLYING MACHINE TENDER Facility:[facility] Start: 08-15-2024 End: 08-15-2024 Patient encounter procedure WILNER MEDEROS SHOW HORSE DRIVER-CHIP APPLYING MACHINE TENDER [facility] Start: 08-01-2024 End: 08-01-2024 Office outpatient visit 25 minutes Yessenia Leeslellan SHOW HORSE DRIVER - CHIP APPLYING MACHINE TENDER Work Phone: [facility] Comment on above: Obstructive sleep ap jacinto (Primary Dx) Start: 08-01-2024 End: 08-01-2024 [facility] Start: 07-18-2024 End: 07-18-2024 ambulatory REGIS PHILLIPS DO Facility:[facility] Start: 07-18-2024 End: 07-18-2024 Patient encounter procedure REGIS PHILLIPS DO [facility] Start: 06-20-2024 End: 06-20-2024 Telephone encounter Yessenia Ayala SHOW HORSE DRIVER - CHIP APPLYING MACHINE TENDER Work Phone: [facility] Start: 06-20-2024 End: 06-20-2024 ambulatory YESSENIA AYALA [facility] Start: 06-20-2024 End: 06-20-2024 Office outpatient visit 40 minutes Yessenia Lucy SHOW HORSE DRIVER - CHIP APPLYING MACHINE TENDER Work Phone: [facility] Comment on above: Obstructive sleep ap jacinto (Primary Dx); Insomnia, unspecified type; Cerebrovascular accident (CVA), unspecified mechanism ([facility] Left homonymous hemianopsia; Hyperlipidemia, unspecified hyperlipidemia type; Stenosis of carotid artery, unspecified laterality; Coronary artery disease, unspecified vessel or lesion type, unspecified whether angina present, unspecified whether [place] or transplanted heart; Other disorders of arteries, arterioles and capillaries in diseases classified elsewhere (HCC) Start: 06-19-2024 End: 06-19-2024 ambulatory BETTY SÁNCHEZ SHOW HORSE DRIVER-CHIP APPLYING MACHINE TENDER Facility:[facility] Start: 06-19-2024 End: 06-19-2024 Patient encounter procedure BETTY SÁNCHEZ SHOW HORSE DRIVER-CHIP APPLYING MACHINE TENDER [facility] Start: 05-26-2024 End: 05-26-2024 Office outpatient visit 25 minutes Yessenia Ayala SHOW HORSE DRIVER - CHIP APPLYING MACHINE TENDER Work Phone: [facility] Comment on above: Obstructive sleep ap jacinto (Primary Dx) Start: 05-26-2024 End: 05-26-2024 ambulatory YESSENIASoren AYALA [facility] Start: 05-16-2024 End: 05-16-2024 ambulatory BETTY SÁNCHEZ SHOW HORSE DRIVER-CHIP APPLYING MACHINE TENDER Facility:[facility] Start: 05-16-2024 End: 05-16-2024 Patient encounter procedure BETTY SÁNCHEZ SHOW HORSE DRIVER-CHIP APPLYING MACHINE TENDER [facility] Start: 05-16-2024 End: 05-16-2024 ambulatory BETTY SÁNCHEZ Facility:[facility] Start: 05-15-2024 End: 05-15-2024 ambulatory BETTY SÁNCHEZ Facility:[facility] Start: 05-15-2024 End: 05-15-2024 Patient encounter procedure BETTY SÁNCHEZ SHOW HORSE DRIVER-CHIP APPLYING MACHINE TENDER [facility] Start: 04-26-2024 ambulatory REGIS PHILLIPS DO Faci lity:[facility] Start: 04-20-2024 End: 04-27-2024 Evaluation and management of inpatient DAVID RYDER MD [facility] Start: 04-20-2024 End: 04-20-2024 Emergency department patient visit DR SANDEE WINCHESTER MD [facility] Start: 04-19-2024 End: 04-19-2024 ambulatory REGIS PHILLIPS DO Facility:[facility] Start: 04-19-2024 End: 04-19-2024 SAME DAY STAY DEVAN CASPER MD [facility] Start: 04-18-2024 End: 04-18-2024 ambulatory REGIS Briana MOODYPHILLIPS DO [facility] Start: 04-18-2024 End: 04-18-2024 Patient encounter procedure WILNER MEDEROS SHOW HORSE DRIVER-CHIP APPLYING MACHINE TENDER [facility] Start: 04-14-2024 End: 04-14-2024 ambulatory [facility] Start: 04-14-2024 End: 04-14-2024 Office outpatient visit 25 minutes [facility] SHOW HORSE DRIVER - CHIP APPLYING MACHINE TENDER Work Phone: [facility] Comment on above: Obstructive sleep ap jacinto (Primary Dx) Start: 03-31-2024 End: 03-31-2024 ambulatory REGIS MOODYINS DO [facility] Start: 03-31-2024 End: 03-31-2024 Patient encounter procedure REGIS MOODYINS DO [facility] Start: 03-11-2024 End: 03-11-2024 ambulatory REGIS Briana PHILLIPS DO Facility:[facility] Start: 03-11-2024 End: 03-11-2024 Patient encounter procedure REGIS E PHILLIPS DO [facility] Start: 02-04-2024 End: 02-08-2024 ambulatory REGIS E PHILLIPS DO [facility] Start: 02-04-2024 End: 02-08-2024 Outreach Lab REGIS PHILLIPS DO [facility] Start: 01-28-2024 End: 02-01-2024 ambulatory REGIS E PHILLIPS DO [facility] Start: 01-28-2024 End: 02-01-2024 Encounter for general adult medical examination without abnormal findings REGIS PHILLIPS DO Facility:[facility] Start: 12-21-2023 End: 12-21-2023 Office outpatient visit 25 minutes Yessenia Lucy SHOW HORSE DRIVER - CHIP APPLYING MACHINE TENDER Work Phone: [facility] Comment on above: Obstructive sleep ap jacinto (Primary Dx) Start: 11-30-2023 End: 11-30-2023 Office outpatient visit 40 minutes Lety Fierro MD Work Phone: [facility] Comment on above: Obstructive sleep ap jacinto (Primary Dx); Insomnia, unspecified type Start: 10-07-2023 End: 10-07-2023 Subsequent hospital visit by physician Castillo Bourne DO Work Phone: [facility] Comment on above: TARIK (obstructive sle ep apnea) (Primary Dx); Chronic insomnia; Restless legs syndrome Start: 10-01-2023 End: 10-01-2023 ambulatory REGIS PHILLIPS DO Facility:[facility] Start: 10-01-2023 End: 10-01-2023 Patient encounter procedure REGIS PHILLIPS DO [facility] Start: 09-09-2023 End: 09-09-2023 ambulatory REGSI PHILLIPS DO Facility:[facility] Start: 06-04-2023 Telephone encounter Angel Wright MD Work Phone: [facility] Comment on above: Appointment Request Start: 06-04-2023 End: 06-04-2023 Office outpatient visit 25 minutes Lety Fierro MD Work Phone: [facility] Comment on above: Syncope and collapse (Primary Dx); Palpitations; Obstructive sleep apnea; Cerebrovascular disease Start: 04-28-2023 End: 04-28-2023 Subsequent hospital visit by physician Lety Fierro MD Work Phone: [facility] Non-Invasive Cardiology Comment on above: Syncope and collapse ; Palpitations; Dyspnea on exertion Start: 04-15-2023 Non-patient / Non-visit Dr. Delmy Beasley Work Phone: [facility] Start: 04-15-2023 End: 04-15-2023 Admission to same day surgery center Dr. Lauri Beasley Work Phone: [facility] Work Phone: Start: 04-15-2023 End: 04-15-[address] Lauri Beasley Work Phone: [facility] Work Phone: Start: 04-07-2023 End: 04-07-2023 Subsequent hospital visit by physician Lety Fierro MD Work Phone: [facility] MRI Comment on above: Syncope and collapse Start: 03-26-2023 End: 03-26-2023 Patient encounter procedure REGIS PHILLIPS DO [facility] Start: 03-23-2023 End: 03-23-2023 Subsequent hospital visit by physician Regis Phillips DO Work Phone: [facility] Neuro Comment on above: Syncope and collapse ; Binocular visual disturbance Start: 03-19-2023 Telephone encounter Lety bean MD Work Phone: [facility] Comment on above: Referral Start: 03-18-2023 End: 03-18-2023 Office outpatient new 45 minutes Lety Fierro MD Work Phone: [facility] Comment on above: Syncope and collapse (Primary Dx); Palpitations; Dyspnea on exertion; Binocular visual disturbance; Obstructive sleep apnea; Chronic insomnia; Restless legs syndrome Start: 03-12-2023 Non-patient / Non-visit Dr. Delmy Beasley Work Phone: [facility] Work Phone: Start: 12-08-2022 End: 12-08-2022 Patient encounter procedure REGIS PHILLIPS DO [facility] Start: 12-08-2022 End: 12-08-2022 Well adult monitoring check done REGIS PHILLIPS DO [facility] Start: 07-17-2022 End: 07-17-2022 Patient encounter procedure REGIS PHILLIPS DO [facility] Start: 07-17-2022 End: 07-17-2022 Well adult monitoring check done REGIS PHILLIPS DO [facility] Start: 04-23-2022 End: 06-23-2022 Physical therapy management VILMA MEHTA DO [facility] Start: 11-05-2021 End: 11-05-[address] LISA NEGRON DO [facility] Start: 03-28-2018 Ambulatory [facility] Facility :[facility] Start: 12-06-2017 End: 12-06-2017 Ambulatory [facility] Facility:[facility] Start: 09-20-2017 End: 09-22-2017 Ambulatory [facility] Start: 09-09-2017 End: 09-09-2017 Ambulatory [facility] Facility:[facility] Procedures Date Procedure Procedure Detail Performing Clinician Start: 05-03-2025 Radiologic exam ches t [address] Regis Phillips DO Work Phone: Start: 02-22-2025 MRI of lumbar spine Dr. Regis Phillips DO Work Phone: Start: 02-15-2025 X-ray of lumbosacral spine Dr. Regis Phillips DO Work Phone: Start: 04-28-2023 Echo tthrc r-t 2d w/wom-mode compl spec&colr d Lety Fierro MD Work Phone: Start: 04-15-2023 End: 04-15-[address] Lauri Besaley Work Phone: Start: 03-23-2023 Eeg extended monitor ing 61-119 minutes Lety Fierro MD Work Phone: Start: 08-16-1991 Other (qualifier value) DR LISA NEGRON DO Comment on above: stomach banding - Dr Brunilda Duke History of decompres ircky of median nerve S/P carpal tunnel release( Confirmed ) VILMA MEHTA DO History of percutane ous transluminal coronary angioplasty History of PTCA 1 Dr. Regis Phillips DO Work Phone: Comment on above: 04/19/2024 at [facility]. Drug-eluting stent to the LAD Inguinal hernia (disorder) DR LISA NEGRON DO Comment on above: Right (08/17/2006) Ambika Gilmore MD, [facility] Left - Dr. Duke Plan of Treatment Date Care Activity Detail Author Start: 04-15-2033 Screening for malignant neoplasm of colon [facility] Start: 04-16-2025 Influenza vaccination Influenza Vaccine (Season Ended) [facility] Start: 03-05-2025 End: 03-05-2025 Patient encounter procedure 03/05/2025 3:00 PM EDT Office Visit [facility] [address] [facility] [address] [place] [phone] Yessenia Ayala APRN - CHIP APPLYING MACHINE TENDER [address] [facility] [address] [place] [phone] [facility] Start: 02-15-2025 X-ray of lumbosacral spine L/S Spine Min 4 Views [facility] Start: 02-15-2025 XR Spine Lumbar and Sacrum GE 4 Views [facility] Start: 01-25-2025 End: 01-25-2025 Patient encounter procedure 01/25/2025 2:30 PM EDT Office Visit [facility] [address] [facility] [address] [place] [phone] Yessenia Ayala APRN - CHIP APPLYING MACHINE TENDER [address] [place] [address] [facility] Start: 12-04-2024 End: 12-04-2024 Patient encounter procedure 12/04/2024 2:30 PM EDT Office Visit [facility] [address] [place] [address] Yessenia Ayala APRN - CHIP APPLYING MACHINE TENDER [address] [place] [address] [facility] Start: 10-04-2024 End: 10-04-2024 Patient encounter procedure 10/04/2024 11:00 AM EST Office Visit [facility] [address] [place] [address] Yessenia Ayala APRN - CHIP APPLYING MACHINE TENDER [address] [place] [address] [facility] Start: 08-01-2024 End: 08-01-2024 Patient encounter procedure 08/01/2024 10:00 AM EST Office Visit [facility] [address] [place] [address] Yessenia Ayala APRN - CHIP APPLYING MACHINE TENDER [address] [place] [address] [facility] Start: 06-20-2024 End: 06-20-2026 Heart Transthoracic Transthoracic echocardiogram (TTE) complete with contrast, bubble, strain, and 3D PRN CV Echocardiography Routine Coronary artery disease, unspecified vessel or lesion type, unspecified whether angina present, unspecified whether [place] or transplanted heart Expected: 06/20/2024 (Approximate), Expires: 06/20/2026 [facility] Work Phone: Comment on above: Expected: 06/20/2024 (Approximate), Expi res: 06/20/2026 Start: 06-20-2024 End: 06-20-2024 Patient encounter procedure 06/20/2024 10:00 AM EST Office Visit [facility] [address] [place] [phone] Yessenia Ayala APRN - CNP [address] [place] [address] [facility] Start: 05-26-2024 End: 05-26-2024 Patient encounter procedure 05/26/2024 10:30 AM EDT Office Visit [facility] [address] [place] [address] [place] [phone] Yessenia Ayala APRN - CNP [address] [place] [address] [facility] Start: 04-16-2024 COVID-19 Vaccine ( season) COVID-19 Vaccine ( season) [facility] Start: 04-16-2024 COVID-19 Vaccine ( season) COVID-19 Vaccine ( season) [facility] Start: 04-16-2024 Influenza vaccination [facility] Start: 02-04-2024 End: 02-04-2024 Patient encounter procedure 02/04/2024 9:30 AM EDT Office Visit [facility] [address] [facility] [address] [place] [phone] Yessenia Ayala APRN - CHIP APPLYING MACHINE TENDER [address] [place] [address] [facility] Start: 12-21-2023 End: 12-21-2023 Patient encounter procedure 12/21/2023 10:30 AM EDT Office Visit [facility] [address] [place] [address] Yessenia Ayala APRN - KEON [address] [place] [address] [facility] Start: 11-30-2023 End: 11-30-2023 Patient encounter procedure 11/30/2023 9:30 AM EDT Office Visit [facility] [address] [place] [phone] Lety Fierro MD [address] [facility] [address] [place] [address] [facility] Start: 09-06-2023 End: 09-06-2023 Patient encounter procedure 09/06/2023 8:00 AM EST Office Visit [facility] [address] [facility] [address] [place] [address] Lety Fierro MD [address] [facility] [address] [place] [address] [facility] Start: 08-05-2023 End: 08-05-2023 Admission to same day surgery center 08/05/2023 8:30 AM EST - 08/05/2023 11:00 AM EST Surgery [facility] MAIN OR [address] [place] [phone] Castillo Bourne, DO [address] [place] [address] INSERTION OF HYPOGLOSSAL NERVE NEUROSTIMULATOR ELECTRODE AND GENERATOR AND BREATHING SENSOR ELECTRODE [63083 (CPT )] [facility] MAIN OR Comment on above: INSERTION OF HYPOGLOSSAL NERVE NEUROSTIM ULATOR ELECTRODE AND GENERATOR AND BREATHING SENSOR ELECTRODE [43842 (CPT )] Start: 08-05-2023 End: 12-21-2023 Hypoglossal nerve, neurostimulator array, pulse generator, and distal respiratory sensor electrode or electrode array Hypoglossal nerve, neurostimulator array, pulse generator, and distal respiratory sensor electrode or electrode array Obstructive sleep apnea (adult) (pediatric) 08/05/2023 8:30 AM EST [facility] Operating Room Start: 08-05-2023 Subsequent hospital visit by physician 08/05/2023 8:30 AM EST Hospital Encounter [facility] MA[facility] OR [address] [place] [phone] Castillo Bourne, DO [address] [place] [address] [facility] OR Start: 07-29-2023 End: 07-29-2023 Admission to establishment 07/29/2023 10:00 AM EST Pre-Admission Testing [facility] Pre-Admit Testing [address] [place] [phone] [facility] Pre-Admit Testing Start: 06-04-2023 End: 06-04-2023 Patient encounter procedure 06/04/2023 8:00 AM EDT Office Visit [facility] [address] [phone] Lety Fierro MD [address] [address] [facility] Start: 05-27-2023 End: 05-27-2023 Patient encounter procedure 05/27/2023 11:30 AM EDT Office Visit [facility] 201 [facility] [address] [place] [phone] Lety Fierro MD [address] [address] [facility] Start: 04-28-2023 End: 04-28-2023 Patient encounter procedure [facility] Non-Invasive Cardiology Start: 04-16-2023 COVID-19 Vaccine ( season) COVID-19 Vaccine ( season) [facility] Start: 04-16-2023 Influenza vaccination Influenza Vaccine (#1) [facility] Start: 04-15-2023 Patient discharge [facility] Start: 04-07-2023 End: 04-07-2023 Patient encounter procedure 04/07/2023 3:30 PM EDT Appointment [facility] MRI [address] [place] [id number] Lety Fierro MD [address] within [facility] [address] [place] [address] [facility] MRI Start: 03-23-2023 End: 03-23-2023 Patient encounter procedure 03/23/2023 11:15 AM EDT Appointment [facility] Neuro [address] [place] [id number] Regis Phillips DO [address] [place] [address] [facility] Start: 03-18-2023 End: 03-18-2025 Cardiac holter monitor (24 hours) Cardiac holter monitor (24 hours) [facility] Routine Syncope and collapse Palpitations Dyspnea on exertion Expected: 03/18/2023 (Approximate), Expires: 03/18/2025 [facility] Work Phone: Comment on above: Expected: 03/18/2023 (Approximate), Expi res: 03/18/2025 Start: 03-18-2023 End: 03-18-2024 EEG extended more than 1 hour EEG extended more than 1 hour Neurology Routine Syncope and collapse Binocular visual disturbance Expected: 03/18/2023 (Approximate), Expires: 03/18/2024 [facility] Comment on above: Expected: 03/18/2023 (Approximate), Expi res: 03/18/2024 Start: 03-18-2023 End: 03-18-2024 MR Brain WO and W contrast IV MR brain w and wo contrast Imaging Routine Syncope and collapse Expected: 03/18/2023, Expires: 03/18/2024 [facility] Comment on above: Expected: 03/18/2023, Expires: Start: 03-18-2023 End: 03-18-2025 US Heart Transthoracic Transthoracic echocardiogram (TTE) complete with contrast, bubble, strain, and 3D PRN CV Echocardiography Routine Syncope and collapse Palpitations Dyspnea on exertion Expected: 03/18/2023 (Approximate), Expires: 03/18/2025 [facility] Comment on above: Expected: 03/18/2023 (Approximate), Expi res: 03/18/2025 Start: 10-19-2022 DTaP/Tdap/Td Vaccines (2 - Td or Tdap) DTaP/Tdap/Td Vaccines (2 - Td or Tdap) [facility] Start: 2022 Pneumococcal Vaccine: 65+ Years (1 - PCV) Pneumococcal Vaccine: 65+ Years (1 - PCV) [facility] Start: 2022 Pneumococcal Vaccine: 65+ Years (1 of 1 - PCV) Pneumococcal Vaccine: 65+ Years (1 of 1 - PCV) [facility] Start: 2017 Hepatitis B Vaccines (1 of 3 - Risk 3-dose series) Hepatitis B Vaccines (1 of 3 - Risk 3-dose series) [facility] Start: 2017 RSV Immunization aged 60 or older (1 - 1-dose 60+ series) RSV Immunization aged 60 or older (1 - 1-dose 60+ series) [facility] Start: 2017 RSV Immunization for Adults (1 - Risk 60-74 years 1-dose series) RSV Immunization for Adults (1 - Risk 60-74 years 1-dose series) [facility] Start: 2007 Zoster Vaccines (1 of 2) Zoster Vaccines (1 of 2) [facility] Start: 1976 Hepatitis A Vaccines (1 of 2 - Risk 2-dose series) Hepatitis A Vaccines (1 of 2 - Risk 2-dose series) [facility] Start: 1976 Pneumococcal Vaccine: 50+ Years (1 of 2 - PCV) Pneumococcal Vaccine: 50+ Years (1 of 2 - PCV) [facility] Start: 1975 Diabetes mellitus screening Diabetes Screening [facility] Start: 1975 Hepatitis C screening Hepatitis C Screening [facility] Start: 1969 Depression Monitoring Depression Monitoring [facility] Start: 1969 Depression Screening Depression Screening [facility] Start: 1963 Pneumococcal Vaccine: 65+ Years (1 of 2 - PCV) Pneumococcal Vaccine: 65+ Years (1 of 2 - PCV) [facility] Start: 1957 COVID-19 Vaccine (#1) COVID-19 Vaccine (#1) [facility] Start: 1957 Annual wellness visit Medicare Initial Physical (IPPE) [facility] Start: 1957 Lipid panel Lipid Panel [facility] Start: 1957 Medicare Annual Wellness (AWV) Medicare Annual Wellness (AWV) [facility] Start: 1957 Screening for malignant neoplasm of colon [facility] End: 04-28-2023 Cardiac holter monitor (24 hours) [employer] Work Phone: Comment on above: Once for 1 Occurrences starting 04/28/20 until 04/28/2023 Colonoscopy [facility] End: 04-07-2023 MR Brain WO and W contrast IV [facility] [employer] Work Phone: Comment on above: Once for 1 Occurrences starting 04/07/20 until 04/07/2023 Patient referral [facility] Work Phone: Immunizations Immunization Date Immunization Notes Care Provider Jenise truong 07-15-2015 influenza virus vaccine, unspecified formulation VILMA MEHTA DO [facility] 10-19-2012 tetanus toxoid, redu isis diphtheria toxoid, and acellular pertussis vaccine, adsorbed VILMA MEHTA DO [facility] Payers Date Payer Category Payer Private Health Insurance [id number] 2024 Self-pay [id number] 2022 Medicare [id number] [id number] 2022 Medicare [id number] 2021 Blue Cross Blue Shie [facility] - O [id number]. [id number] [id number] 2021 Unknown [id number] 2018 Unknown [id number]. 1.13.680.2.7.3.6786 71.315 1957 Unknown [id number] 2.16.840.1.266731.3.579.2.62 1957 Unknown [id number] 2.16.840.1.925333.3.579.2.62 1957 Unknown [id number] 2.16.840.1.603368.3.579.2.627 1957 Unknown [id number] 2.16.840.1.247567.3.579.2.627 1957 Unknown [id number] 2.16.840.1.237228.3.579.2.62 1957 Unknown [id number] 2.16.840.1.158848.3.579.2.627 1957 Unknown [id number] 2.16.840.1.169489.3.579.2.62 1957 Unknown [id number] 2.16.840.1.170569.3.579.2.627 1957 Unknown [id number] 2.16.840.1.278670.3.579.2.62 1957 Unknown [id number] 2.16.840.1.300656.3.579.2.627 1957 Unknown [id number] 2.16.840.1.106075.3.579.2.627 1957 Unknown [id number] 2.16.840.1.706292.3.579.2. 1957 Unknown [id number] 2.16.840.1.487360.3.579.2. 1957 Unknown [id number] 2.16.840.1.061968.3.579.2. 1957 Unknown [id number] 2.16.840.1.931010.3.579.2. 1957 Unknown [id number] 2.16.840.1.326470.3.579.2. 1957 Unknown [id number] 2.16.840.1.573968.3.579.2. 1957 Unknown [id number] 2.16.840.1.261079.3.579.2. 1957 Unknown [id number] 2.16.840.1.224369.3.579.2. 1957 Unknown [id number] 2.16.840.1.335071.3.579.2. 1957 Unknown [id number] 2.16.840.1.664840.3.579.2. 1957 Unknown [id number] 2.16.840.1.886415.3.579.2. 1957 Unknown [id number] 2.16.840.1.519073.3.579.2. 1957 Unknown [id number] 2.16.840.1.561308.3.579.2. 1957 Unknown [id number] 2.16.840.1.812073.3.579.2. 1957 Unknown [id number] 2.16.840.1.821807.3.579.2. 1957 Unknown [id number] 2.16.840.1.449869.3.579.2.627 Private Health Insurance [id number] Unknown [id number] Unknown [id number] 2.16.840.1.431063.3.579.2.462 Unknown [id number] 2.16.840.1.021548.3.579.2.462 Unknown [id number] 2.16.840.1.411892.3.579.2.462 Unknown [id number] 2.16.840.1.432805.3.579.2.462 Unknown [id number] 2.16.840.1.194262.3.579.2.462 Unknown [id number] 2.16.840.1.853209.3.579.2.462 Unknown [id number] 2.16.840.1.233516.3.579.2.462 Unknown [id number] 2.16.840.1.955703.3.579.2.462 Unknown [id number] 2.16.840.1.441768.3.579.2.462 Unknown [id number] 2.16.840.1.141476.3.579.2.462 Social History Date Type Detail Facility Start: 03-22-2019 End: 02-05-2025 Never smoked tobacco (finding) [facility] Comment on above: no tobacco smoke exp osure Start: 1955 Sex Assigned At Male A [facility] Start: 02-04-2023 Tobacco use and exposure Smoke less tobacco non-user [facility] Start: 03-18-2023 End: 01-25-2025 Alcohol intake Current drinker of alcohol (finding) [facility] Start: 02-11-2023 End: 07-29-2023 History of Social function [facility] Start: 02-11-2023 End: 07-29-2023 Tobacco use panel [facility] Start: 03-18-2023 Alcohol Comment Very occasiona l; goes weeks and sometimes months without [facility] Start: 1955 Sex Assigned At Not on file [facility] Start: 03-08-2023 End: 04-28-2023 Exposure to SARS-CoV-2 (event) Not sure [employer] Start: 04-13-2023 [facility] Within the last year , have you been afraid of your partner or ex-partner? No [employer] In the past 12 month s, has lack of transportation kept you from medical appointments or from getting medications? No [employer] Start: 11-30-2023 Alcohol Comment Very occasiona l; go weeks and sometimes months without [facility] Start: 02-08-2019 End: 12-24-2022 Sex Male (finding) [employer] Work Phone: Sexual Orientation [place] galina [facility] Medical Equipment Procedure Code Equipment Code Equipment Origin al Text Equipment Identifier Dates Colonoscopy Tissue marking ink [id number] FDA Start: 04-15-2023 Colonoscopy Ligation clip, metallic [id number] FDA Start: 04-15-2023 Lead Sensing Res p Inspire - [id number] - [id number] Start: 10-07-2023 Lead Stim Inspir e - [id number] - [id number] Start: 10-07-2023 Generator Pulse Inspire - [id number] - [id number] Start: 10-07-2023 Goals Date Patient Goal Desired Activity /State Functional Status Date Assessment Result Facility 04-27-2024 Functional Status Room located n [facility] 04-27-2024 Functional Status [facility] 04-26-2024 Functional Status [facility] 04-26-2024 Functional Status [facility] 04-26-2024 Functional Status Up to Chair Re laura up in chair [facility] 04-26-2024 Functional Status Mod I [facility] 04-26-2024 Functional Status Minimum assistance [facility] 04-26-2024 Functional Status [facility] 04-25-2024 Functional Status [place] [facility] 04-25-2024 Functional Status [place] [facility] 04-25-2024 Functional Status Supervised [facility] 04-25-2024 Functional Status [place] [facility] 04-25-2024 Functional Status [place] [facility] 04-25-2024 Functional Status [place] [facility] 04-24-2024 Functional Status Done [facility] 04-24-2024 Functional Status [place] [facility] 04-24-2024 Functional Status [place] [facility] 04-23-2024 Functional Status [place] [facility] 04-23-2024 Functional Status [place] [facility] 04-23-2024 Functional Status [facility] 04-22-2024 [facility] 04-[facility] Functional Status Pt. reports th at is retired and able to provide support upon discharge. Unable to provide physical assist to pt. as she uses a cane to ambulate due to hip issues. [facility] 04-21-2024 Functional Status [facility] 04-21-2024 Functional Status Maintained [facility] 04-20-2024 Functional Status Sensory Deficits None A [facility] 04-20-2024 Functional Status Minimum assistance [facility] 04-20-2024 Functional Status Fall ID band o n, Room located near nursing station, Non-Slip footwear, Reoriented, toileting offered, supervised while toileting, Room check performed [facility] 04-20-2024 Functional Status [facility] 04-19-2024 Functional Status Up to chair [facility] 04-19-2024 Functional Status Room check performed [facility] 04-19-2024 Functional Status [facility] Mental Status Date Assessment Result Facility 04-26-2024 Mental Status Oriented x 4 [facility] 04-26-2024 Mental Status [facility] 04-26-2024 Mental Status [facility] 04-20-2024 Mental Status Orientation Forgetful [facility] 04-20-2024 Mental Status [facility] 04-19-2024 Mental Status Oriented x 4 [facility] 04-19-2024 Mental Status [facility] 04-15-2023 Cognitive function Level Of Cons ciousness Awake;Drowsy [facility] Work Phone: 04-15-2023 Cognitive function Patient Orien tation Person;Place;Time [facility] Work Phone: Clinical Notes 03-18-2023 to 05-05-2025 Note Date & Type Note Facility 05-05-2025 Radiology Diagnostic study note [facility] Imaging Services [address] [place] [address] Chest PA and Lateral MR#: [id number] Acct: [id number] Name: TRACY CARDOSO Rep #: [id number] : 1955 M 69 From: Samy Granados MD PCP: Dr. Regis Phillips DO Status: REG CLI Study:Chest PA and Lateral Date of Exam: 05/03/25 Exam# [id number] Ordering Dr: Albert Gonzalez NP [employer] PROCEDURE: CHEST PA AND LATERAL 05/03/2025 REASON FOR EXAM: PERSISTENT COUGH, SHORTNESS OF BREATH TECHNIQUE: Procedure Code: RADCXR Modality: DX Procedure: CHEST PA AND LATERAL COMPARISON: 04/28/2024 FINDINGS: Battery pack for neurostimulator projects over the right chest wall. The heart mediastinum are normal. Coronary arterial stent present. No acute cardiopulmonary process. Lungs are clear. No pneumothorax or effusion present. Multilevel degenerative disc disease through the spine. Upper abdomen is within normal limits. RAD/Chest PA and Lateral IMPRESSION: No acute cardiopulmonary process or significant change. Reading Location: [facility] CC: [employer] Victorino Gonzalez; Dr. Regis Phillips, ~ Healthcare Sales Representative: Signed [facility] 02-15-2025 Evaluation note Diagnosis Onset Date Resolution Degenerative disc disease (DDD) of lumbar region with discogenic back pain acute February 15, 2025 2 :23pm Lumbar stenosis with neurogenic claudication acute February 2:23pm Degenerative disc disease (DDD) of lumbar region with discogenic back pain acute March 01, 2025 3:30pm Lumbar stenosis with neurogenic claudication acute February 3:30pm Coronary artery disease chronic S eptember 2024 3:20pm CVA (cerebral vascular accident) chronic April 26, 2025 3:20pm Essential (primary) hypertension chronic April 26, 2025 3:20pm TARIK (obstructive sleep apnea) chronic April 26, 2025 3:20pm [employer] Work Phone: [phone]) 944-548106-20-2025 Hospital Discharge instructions Patient Education 02/02/2025 19:09:53 Hip Contusion Hip Contusion A contusion is another word for a bruise. It happens when small blood vessels break open and leak blood into the nearby area. A hip contusion can result from a bump, hit, or fall. Symptoms of a contusion often include changes in skin color (bruising), swelling, and pain. It may take several hours for a deep bruise to show up. If the injury is severe, you may need an X-ray to check for broken bones. Swelling should decrease in a few days. Bruising and pain may take several weeks to go away. Home care Unless another medicine was prescribed, you may take acetaminophen, ibuprofen, or naproxen to help relieve pain and swelling. If needed, stronger pain medicines may be prescribed. Take all medicines as directed. Ice the bruised area to help reduce pain and swelling. Wrap a cold source (ice pack or ice cubes indio plastic bag) in a thin towel. Apply the cold source to the bruised area for 20 minutes every 1 to2 hours the first day. Continue this 3 to 4 times a day until the pain and swelling goes away. If walking causes pain, use crutches or a walker until you can walk without pain. These items can be rented at most pharmacies and orthopedic supply stores. If your injury is keeping you from moving around or caring for yourself properly, you may qualify for services such as home healthcare. Check with your doctor and insurance company to see if this type of care is covered. Follow-up Follow up with your healthcare provider as advised. When to seek medical advice Call your healthcare provider right away if any of these occur: Increased pain, bruising, or swelling near the injured area Decreased ability to bear weight on the injured side Pain or swelling develops below the knee Chest pain or shortness of breath [phone] [employer] [address] [place] [address]13. All rights reserved. This information is not intended as a substitute for professional medical care. Always follow yourhealthcare professional's instructions. 02/02/2025 19:09:51 Hip Strain Hip Strain You have a strain of the muscles around the hip joint. A muscle strain is a stretching or tearing of muscle fibers. This causes pain, especially when you move that muscle. There may also be some swelling and bruising. Home care Stay off the injured leg as much as possible until you can walk on it without pain. If you have a lot of pain with walking, crutches or a walker may be prescribed. These can be rented or purchased [facility] pharmacies and surgical or orthopedic supply stores. Follow your healthcare provider's advice about when to start putting weight on that leg. Apply an ice pack over the injured area for 15 to 20 minutes every 3 to 6 hours. Do this for the first 24 to 48 hours. You can make an ice pack by filling a plastic bag that seals at the top with icecubes and then wrapping it with a thin towel. Be careful not to injure your skin with the ice treatments. Ice should never be applied directly to skin. Continue the use of ice packs for relief of pain and swelling as needed. After 48 hours, apply heat (warm shower or warm bath) for 15 to 20 minutesseveral times a day, or alternate ice and heat. You may use ubzv-rng-crvhnva pain medicine to control pain, unless another pain medicine was prescribed. If you have chronic liver or kidney disease or ever had a stomach ulcer or gastrointestinal bleeding, talk with your healthcare provider before using these medicines. If you play sports, you may resume these activities when you are able to hop and run on the injuredleg without pain. Follow-up care Follow up with your healthcare provider, or as advised. If your symptoms don't start to get better after a week, more tests may be needed. If X-rays were taken, you will be told of any new findings that may affect your care. When to seek medical advice Call your healthcare provider right away if any of these occur: Increased swelling or bruising Increased pain Losing the ability to put weight on the injured side [phone] [employer] [address] [place] [address]859. All rights reserved. This information is not intended as a substitute for professional medical care. Always follow yourhealthcare professional's instructions. 02/02/2025 19:09:49 Back Care Tips Back Care Tips Caring for your back These are things you can do to prevent a recurrence of acute back pain and to reduce symptoms from chronic back pain: Maintain a healthy weight. If you are overweight, losing weight will help most types of back pain. Exercise is an important part of recovery from most types of back pain. The muscles behind and in front of the spine support the back. This means strengthening both the back muscles and the abdominalmuscles will provide better support for your spine. Swimming and brisk walking are good overall exercises to improve your fitness level. Practice safe lifting methods (below). Practice good posture when sitting, standing and walking. Avoid prolonged sitting. This puts more stress on the lower back than standing or walking. Wear quality shoes with sufficient arch support. Foot and ankle alignment can affect back symptoms.Women should avoid wearing high heels. Therapeutic massage can help relax the back muscles without stretching them. During the first 24 to 72 hours after an acute injury or flare-up of chronic back pain, apply an ice pack to the painful area for 20 minutes and then remove it for 20 minutes, over a period of 60 to 90 minutes, or several times a day. As a safety precaution, do not use a heating pad at bedtime. Sleeping on a heating pad can lead to skin arredondo or tissue damage. You can alternate ice and heat therapies. Medicines Talk to your healthcare provider before using medicines, especially if you have other medical problems or are taking other medicines. You may use acetaminophen or ibuprofen to control pain, unless your healthcare provider prescribed other pain medicine. If you have chronic conditions like diabetes, liver or kidney disease, stomach ulcers, or gastrointestinal bleeding, or are taking blood thinners, talk with your healthcare provider before taking any medicines. Be careful if you are given prescription pain medicines, narcotics, or medicine for muscle spasm. They can cause drowsiness, affect your coordination, reflexes, and judgment. Do not drive or operate heavy machinery while taking these types of medicines. Take prescription pain medicine only as prescribed by your healthcare provider. Lumbar stretch Here is a simple stretching exercise that will help relax muscle spasm and keep your back more limber. If exercise makes your back pain worse, don t do it. Lie on your back with your knees bent and both feet on the ground. Slowly raise your left knee to your chest as you flatten your lower back against the floor. Hold for 5 seconds. Relax and repeat the exercise with your right knee. Do 10 of these exercises for each leg. Safe lifting method Don t bend over at the waist to lift an object off the floor. Instead, bend your knees and hips in a squat. Keep your back and head upright Hold the object close to your body, directly in front of you. Straighten your legs to lift the object. Lower the object to the floor in the reverse fashion. If you must slide something across the floor, push it. Posture tips Sitting Sit in chairs with straight backs or low-back support. Keep your knees lower than your hips, with your feet flat on the floor. When driving, sit up straight. Adjust the seat forward so you are not leaning toward the steering wheel. A small pillow or rolled towel behind your lower back may help if you are driving long distances. Standing When standing for long periods, shift most of your weight to one leg at a time. Alternate legs every few minutes. Sleeping The best way to sleep is on your side with your knees bent. Put a low pillow under your head to support your neck in a neutral spine position. Avoid thick pillows that bend your neck to one side. Puta pillow between your legs to further relax your lower back. If you sleep on your back, put pillowsunder your knees to support your legs in a slightly flexed position. Use a firm mattress. If your mattress sags, replace it, or use a 1/2-inch plywood board under the mattress to add support. Follow-up care Follow up with your healthcare provider, or as advised. If X-rays, a CT scan or an MRI scan were taken, they will be reviewed by a radiologist. You will benotified of any new findings that may affect your care. Call 911 Call 911 if any of the following occur: Trouble breathing Confusion Very drowsy Fainting or loss of consciousness Rapid or very slow heart rate Loss of bowel or bladder control When to seek medical advice Call your healthcare provider right away if any of the following occur: Pain becomes worse or spreads to your arms or legs Weakness or numbness in one or both arms or legs Numbness in the groin area [phone] [employer] [place] [address] 90894. All rights reserved. This information is not intended as a substitute for professional medical care. Always follow yourhealthcare professional's instructions. 02/02/2025 19:09:48 Back and Neck Pain, General General Neck and Back Pain Both neck and back pain are usually caused by injury to the muscles or ligaments of the spine. Sometimes the disks that separate each bone of the spine may cause pain by pressing on a nearby nerve. Back and neck pain may appear after a sudden twisting or bending force (such as in a car accident), or sometimes after a simple awkward movement. In either case, muscle spasm is often present and adds to the pain. Acute neck and back pain usually gets better in 1 to 2 weeks. Pain related to disk disease, arthritis in the spinal joints or spinal stenosis (narrowing of the spinal canal) can become chronic and last for months or years. Back and neck pain are common problems. Most people feel better in 1 or 2 weeks, and most of the rest in 1 to 2 months. Most people can remain active. People have and describe pain differently. Pain can be sharp, stabbing, shooting, aching, cramping, or burning Movement, standing, bending, lifting, sitting, or walking may worsen the pain Pain can be localized to one spot or area, or it can be more generalized Pain can spread or radiate upwards, downwards, to the front, or go down your arms Muscle spasm may occur. Most of the time mechanical problems with the muscles or spine cause the pain. it is usually causedby an injury, whether known or not, to the muscles or ligaments. While illnesses can cause back pain, it is usually not caused by a serious illness. Pain is usually related to physical activity, whether sports, exercise, work, or normal activity. Sometimes it can occur without an identifiable cause. This can happen simply by stretching or moving wrong, without noting pain at the time. Other causes include: Overexertion, lifting, pushing, pulling incorrectly or too aggressively. Sudden twisting, bending or stretching from an accident (car or fall), or accidental movement. Poor posture Poor conditioning, lack of regular exercise Spinal disc disease or arthritis Stress , or illness like appendicitis, bladder or kidney infection, pelvic infections Home care For neck pain: Use a comfortable pillow that supports the head and keeps the spine in a neutral position. The position of the head should not be tilted forward or backward. When in bed, try to find a position of comfort. A firm mattress is best. Try lying flat on your back with pillows under your knees. You can also try lying on your side with your knees bent up towardsyour chest and a pillow between your knees. At first, do not try to stretch out the sore spots. If there is a strain, it is not like the good soreness you get after exercising without an injury. In this case, stretching may make it worse. Don't sit for long periods, as in long car rides or other travel. This puts more stress on the lower back than standing or walking. During the first 24 to 72 hours after an injury, apply an ice pack to the painful area for 20 minutes and then remove it for 20 minutes over a period of 60 to 90 minutes or several times a day. You can alternate ice and heat therapies. Talk with your healthcare provider about the best treatment for your back or neck pain. As a safety precaution, do not use a heating pad at bedtime. Sleepingwith a heating pad can lead to skin arredondo or tissue damage. Therapeutic massage can help relax the back and neck muscles without stretching them. Be aware of safe lifting methods and do not lift anything over 15 pounds until all the pain is gone. Medicines Talk to your healthcare provider before using medicine, especially if you have other medical problems or are taking other medicines. You may use ywfj-gcb-[id number] medicine to control pain, unless another pain medicine was prescribed.If you have chronic conditions like diabetes, liver or kidney disease, stomach ulcers, gastrointestinal bleeding, or are taking blood thinner medicines. Be careful if you are given pain medicines, narcotics, or medicine for muscle spasm. They can causedrowsiness, and can affect your coordination, reflexes, and judgment. Do not drive or operate heavySuperplayery. Follow-up care Follow up with your healthcare provider, or as advised. Physical therapy or further tests may be needed. If X-rays were taken, you will be notified of any new findings that may affect your care. Call 911 Call 911 if any of the following occur: Trouble breathing Confusion Very drowsy or trouble awakening Fainting or loss of consciousness Rapid or very slow heart rate Loss of bowel or bladder control When to seek medical advice Call your healthcare provider right away if any of these occur: Pain becomes worse or spreads into your arms or legs Weakness, numbness or pain in one or both arms or legs Numbness in the groin area Difficulty walking Fever of 100.4 F (38 C) or higher, or as directed by your healthcare provider [id number] [employer]. [address] [place] [address], [place] [address]. All rights reserved. This information is not intended as a substitute for professional medical care. Always follow yourhealthcare professional's instructions. Follow Up Care 02/02/2025 18:08:51 With:REGIS PHILLIPS DO Address: [address] [place] [phone] When:2-4 days [facility] 06-20-2025 Note Discharge Instructions Thank you for allowing [facility] to assist you with your healthcare needs. The following is importantdischarge information regarding your hospital visit. Diagnosis from Today's Visit Back pain Hip pain What to Do Next Instructions from Your Care Team No qualifying data available. Post Acute Orders No qualifying data available. You Need to Schedule the Following Appointments Follow Up with REGIS PHILLIPS DO When:Within 2-4 days Where:[address] [place] [id number] [phone] Allergies NKA Medications Please ask your primary doctor or pharmacist before taking any other medication not listed, including over the counter drugs, herbal medications, vitamins and or supplements as they may interact withyour home medications. What How Much When Why Instructions Last Dose New cyclobenzaprine (Flexeril use cyclobenzaprine) 10 Milligram by mouth Three (3) times a day Duration: 3 Days Printed Prescription New methylPREDNISolone (Medrol Dosepak 4 mg oral tablet) Per Dosepak Instructions by mouth Every day Duration: 6 Days as directed on package labeling Printed Prescription Unchanged acetaminophen (acetaminophen 325 mg oral tablet) 2 tab(s) by mouth Four (4) times a day as needed for Pain, scale 1-3 Unchanged acetaminophen (Tylenol) 1,000 Milligram by mouth Every 6 hours as needed for Pain, scale 1-3 Unchanged ascorbic acid (Vitamin C 25 mg oral tablet, chewable) 1 tab(s) Chewed Once a day Unchanged aspirin (aspirin 81 mg oral delayed release tablet) 1 tab(s) by mouth Every day Unchanged carvedilol (carvedilol 25 mg oral tablet) 1 tab(s) by mouth Two (2) times a day Unchanged cholecalciferol (Vitamin D3) 50 Microgram by mouth Every day Unchanged clopidogrel (Plavix 75 mg oral tablet) 1 tab(s) by mouth Once a day Unchanged escitalopram (escitalopram 5 mg oral tablet) 1 tab(s) by mouth Every day Unchanged evolocumab (Repatha SureClick 140 mg/ mL subcutaneous solution) 140 Milligram Subcutaneous Every other week Mixed hyperlipidemia Unchanged evolocumab (Repatha SureClick 140 mg/ mL subcutaneous solution) INJECT 140MG SUBCUTANEOUSLY ONCE EVERY 2 WEEKS Unchanged herbal/ nutritional product (garlic oral capsule) Unchanged herbal/ nutritional product (Probiotic) Unchanged losartan (losartan 25 mg oral tablet) See instructions Take 1 tab in am and 2 tabs in pm Unchanged magnesium gluconate by mouth Two (2) times a day Unchanged mirtazapine (mirtazapine 30 mg oral tablet) TAKE ONE TABLET BY MOUTH NIGHTLY Unchanged Misc Medication Unchanged Misc Medication Unchanged Misc Medication (beet root) Unchanged Misc Medication (Cayane) Unchanged nitroGLYcerin (nitroglycerin 0.4 mg sublingual tablet) 1 tab(s) under the tongue Every 5 minutes as needed for for chest pain If chest pain not relieved in 5 minutes after first dose, seek immediate medical attention Unchanged omega-3 polyunsaturated fatty acids (Fish Oil 1000 mg oral capsule) by mouth Unchanged tamsulosin (Flomax 0.4 mg oral capsule) 1 cap by mouth Once a day Unchanged zolpidem (zolpidem 5 mg oral tablet) TAKE 1 TABLET BY MOUTH NIGHTLY NEEDED FOR SLEEP Please take this list to your next doctor s visit. Bring all medications you take, including over the counter medications, herbals and other supplements with you to your doctor s visit. Patients and families are reminded to discard old lists and to update any records with all medication providers or retail pharmacies. [employer] Hip Contusion A contusion is another word for a bruise. It happens when small blood vessels break open and leak blood into the nearby area. A hip contusion can result from a bump, hit, or fall. Symptoms of a contusion often include changes in skin color (bruising), swelling, and pain. It may take several hours for a deep bruise to show up. If the injury is severe, you may need an X-ray to check for broken bones. Swelling should decrease in a few days. Bruising and pain may take several weeks to go away. Home care Unless another medicine was prescribed, you may take acetaminophen, ibuprofen, or naproxen to help relieve pain and swelling. If needed, stronger pain medicines may be prescribed. Take all medicines as directed. Ice the bruised area to help reduce pain and swelling. Wrap a cold source (ice pack or ice cubes indio plastic bag) in a thin towel. Apply the cold source to the bruised area for 20 minutes every 1 to2 hours the first day. Continue this 3 to 4 times a day until the pain and swelling goes away. If walking causes pain, use crutches or a walker until you can walk without pain. These items can be rented at most pharmacies and orthopedic supply stores. If your injury is keeping you from moving around or caring for yourself properly, you may qualify for services such as home healthcare. Check with your doctor and insurance company to see if this type of care is covered. Follow-up Follow up with your healthcare provider as advised. When to seek medical advice Call your healthcare provider right away if any of these occur: Increased pain, bruising, or swelling near the injured area Decreased ability to bear weight on the injured side Pain or swelling develops below the knee Chest pain or shortness of breath [phone] [employer] [address] [place] [address], [place] [address]. All rights reserved. This information is not intended as a substitute for professional medical care. Always follow yourhealthcare professional's instructions. Hip Strain You have a strain of the muscles around the hip joint. A muscle strain is a stretching or tearing of muscle fibers. This causes pain, especially when you move that muscle. There may also be some swelling and bruising. Home care Stay off the injured leg as much as possible until you can walk on it without pain. If you have a lot of pain with walking, crutches or a walker may be prescribed. These can be rented or purchased [facility] and surgical or orthopedic supply stores. Follow your healthcare provider's advice about when to start putting weight on that leg. Apply an ice pack over the injured area for 15 to 20 minutes every 3 to 6 hours. Do this for the first 24 to 48 hours. You can make an ice pack by filling a plastic bag that seals at the top with icecubes and then wrapping it with a thin towel. Be careful not to injure your skin with the ice treatments. Ice should never be applied directly to skin. Continue the use of ice packs for relief of pain and swelling as needed. After 48 hours, apply heat (warm shower or warm bath) for 15 to 20 minutesseveral times a day, or alternate ice and heat. You may use ghjs-qmh-uiffwac pain medicine to control pain, unless another pain medicine was prescribed. If you have chronic liver or kidney disease or ever had a stomach ulcer or gastrointestinal bleeding, talk with your healthcare provider before using these medicines. If you play sports, you may resume these activities when you are able to hop and run on the injuredleg without pain. Follow-up care Follow up with your healthcare provider, or as advised. If your symptoms don't start to get better after a week, more tests may be needed. If X-rays were taken, you will be told of any new findings that may affect your care. When to seek medical advice Call your healthcare provider right away if any of these occur: Increased swelling or bruising Increased pain Losing the ability to put weight on the injured side [id number] [employer]. [address] [place] [address], [place] [address]. All rights reserved. This information is not intended as a substitute for professional medical care. Always follow yourhealthcare professional's instructions. Back Care Tips Caring for your back These are things you can do to prevent a recurrence of acute back pain and to reduce symptoms from chronic back pain: Maintain a healthy weight. If you are overweight, losing weight will help most types of back pain. Exercise is an important part of recovery from most types of back pain. The muscles behind and in front of the spine support the back. This means strengthening both the back muscles and the abdominalmuscles will provide better support for your spine. Swimming and brisk walking are good overall exercises to improve your fitness level. Practice safe lifting methods (below). Practice good posture when sitting, standing and walking. Avoid prolonged sitting. This puts more stress on the lower back than standing or walking. Wear quality shoes with sufficient arch support. Foot and ankle alignment can affect back symptoms.Women should avoid wearing high heels. Therapeutic massage can help relax the back muscles without stretching them. During the first 24 to 72 hours after an acute injury or flare-up of chronic back pain, apply an ice pack to the painful area for 20 minutes and then remove it for 20 minutes, over a period of 60 to 90 minutes, or several times a day. As a safety precaution, do not use a heating pad at bedtime. Sleeping on a heating pad can lead to skin arredondo or tissue damage. You can alternate ice and heat therapies. Medicines Talk to your healthcare provider before using medicines, especially if you have other medical problems or are taking other medicines. You may use acetaminophen or ibuprofen to control pain, unless your healthcare provider prescribed other pain medicine. If you have chronic conditions like diabetes, liver or kidney disease, stomach ulcers, or gastrointestinal bleeding, or are taking blood thinners, talk with your healthcare provider before taking any medicines. Be careful if you are given prescription pain medicines, narcotics, or medicine for muscle spasm. They can cause drowsiness, affect your coordination, reflexes, and judgment. Do not drive or operate heavy machinery while taking these types of medicines. Take prescription pain medicine only as prescribed by your healthcare provider. Lumbar stretch Here is a simple stretching exercise that will help relax muscle spasm and keep your back more limber. If exercise makes your back pain worse, don t do it. Lie on your back with your knees bent and both feet on the ground. Slowly raise your left knee to your chest as you flatten your lower back against the floor. Hold for 5 seconds. Relax and repeat the exercise with your right knee. Do 10 of these exercises for each leg. Safe lifting method Don t bend over at the waist to lift an object off the floor. Instead, bend your knees and hips in a squat. Keep your back and head upright Hold the object close to your body, directly in front of you. Straighten your legs to lift the object. Lower the object to the floor in the reverse fashion. If you must slide something across the floor, push it. Posture tips Sitting Sit in chairs with straight backs or low-back support. Keep your knees lower than your hips, with your feet flat on the floor. When driving, sit up straight. Adjust the seat forward so you are not leaning toward the steering wheel. A small pillow or rolled towel behind your lower back may help if you are driving long distances. Standing When standing for long periods, shift most of your weight to one leg at a time. Alternate legs every few minutes. Sleeping The best way to sleep is on your side with your knees bent. Put a low pillow under your head to support your neck in a neutral spine position. Avoid thick pillows that bend your neck to one side. Puta pillow between your legs to further relax your lower back. If you sleep on your back, put pillowsunder your knees to support your legs in a slightly flexed position. Use a firm mattress. If your mattress sags, replace it, or use a 1/2-inch plywood board under the mattress to add support. Follow-up care Follow up with your healthcare provider, or as advised. If X-rays, a CT scan or an MRI scan were taken, they will be reviewed by a radiologist. You will benotified of any new findings that may affect your care. Call 911 Call 911 if any of the following occur: Trouble breathing Confusion Very drowsy Fainting or loss of consciousness Rapid or very slow heart rate Loss of bowel or bladder control When to seek medical advice Call your healthcare provider right away if any of the following occur: Pain becomes worse or spreads to your arms or legs Weakness or numbness in one or both arms or legs Numbness in the groin area [id number] [employer]. [address] [place] [address], [place] [address]. All rights reserved. This information is not intended as a substitute for professional medical care. Always follow yourhealthcare professional's instructions. General Neck and Back Pain Both neck and back pain are usually caused by injury to the muscles or ligaments of the spine. Sometimes the disks that separate each bone of the spine may cause pain by pressing on a nearby nerve. Back and neck pain may appear after a sudden twisting or bending force (such as in a car accident), or sometimes after a simple awkward movement. In either case, muscle spasm is often present and adds to the pain. Acute neck and back pain usually gets better in 1 to 2 weeks. Pain related to disk disease, arthritis in the spinal joints or spinal stenosis (narrowing of the spinal canal) can become chronic and last for months or years. Back and neck pain are common problems. Most people feel better in 1 or 2 weeks, and most of the rest in 1 to 2 months. Most people can remain active. People have and describe pain differently. Pain can be sharp, stabbing, shooting, aching, cramping, or burning Movement, standing, bending, lifting, sitting, or walking may worsen the pain Pain can be localized to one spot or area, or it can be more generalized Pain can spread or radiate upwards, downwards, to the front, or go down your arms Muscle spasm may occur. Most of the time mechanical problems with the muscles or spine cause the pain. it is usually causedby an injury, whether known or not, to the muscles or ligaments. While illnesses can cause back pain, it is usually not caused by a serious illness. Pain is usually related to physical activity, whether sports, exercise, work, or normal activity. Sometimes it can occur without an identifiable cause. This can happen simply by stretching or moving wrong, without noting pain at the time. Other causes include: Overexertion, lifting, pushing, pulling incorrectly or too aggressively. Sudden twisting, bending or stretching from an accident (car or fall), or accidental movement. Poor posture Poor conditioning, lack of regular exercise Spinal disc disease or arthritis Stress , or illness like appendicitis, bladder or kidney infection, pelvic infections Home care For neck pain: Use a comfortable pillow that supports the head and keeps the spine in a neutral position. The position of the head should not be tilted forward or backward. When in bed, try to find a position of comfort. A firm mattress is best. Try lying flat on your back with pillows under your knees. You can also try lying on your side with your knees bent up towardsyour chest and a pillow between your knees. At first, do not try to stretch out the sore spots. If there is a strain, it is not like the good soreness you get after exercising without an injury. In this case, stretching may make it worse. Don't sit for long periods, as in long car rides or other travel. This puts more stress on the lower back than standing or walking. During the first 24 to 72 hours after an injury, apply an ice pack to the painful area for 20 minutes and then remove it for 20 minutes over a period of 60 to 90 minutes or several times a day. You can alternate ice and heat therapies. Talk with your healthcare provider about the best treatment for your back or neck pain. As a safety precaution, do not use a heating pad at bedtime. Sleepingwith a heating pad can lead to skin arredondo or tissue damage. Therapeutic massage can help relax the back and neck muscles without stretching them. Be aware of safe lifting methods and do not lift anything over 15 pounds until all the pain is gone. Medicines Talk to your healthcare provider before using medicine, especially if you have other medical problems or are taking other medicines. You may use uuzz-jce-hyqgbnh medicine to control pain, unless another pain medicine was prescribed.If you have chronic conditions like diabetes, liver or kidney disease, stomach ulcers, gastrointestinal bleeding, or are taking blood thinner medicines. Be careful if you are given pain medicines, narcotics, or medicine for muscle spasm. They can causedrowsiness, and can affect your coordination, reflexes, and judgment. Do not drive or operate heavySuperplayery. Follow-up care Follow up with your healthcare provider, or as advised. Physical therapy or further tests may be needed. If X-rays were taken, you will be notified of any new findings that may affect your care. Call 911 Call 911 if any of the following occur: Trouble breathing Confusion Very drowsy or trouble awakening Fainting or loss of consciousness Rapid or very slow heart rate Loss of bowel or bladder control When to seek medical advice Call your healthcare provider right away if any of these occur: Pain becomes worse or spreads into your arms or legs Weakness, numbness or pain in one or both arms or legs Numbness in the groin area Difficulty walking Fever of 100.4 F (38 C) or higher, or as directed by your healthcare provider [id number] [employer] [address] [place] [address]. All rights reserved. This information is not intended as a substitute for professional medical care. Always follow yourhealthcare professional's instructions. Additional Information VACCINATE! IT SAVES LIVES! Members of the community who have not yet received the COVID-19 vaccine and would like to receive it can visit one of [facility] vaccine clinics. There are many vaccine clinic locations within the [facility]. For locations and available times, please visit [email or web address].[email or web address]/. It is important to note that some COVID mobile vaccine clinics are held outdoors and may be canceled in rainy or stormy conditions. To learn more about pediatric vaccinations (ages 5-11), we invite you to visit the [facility] webpage. [email or web address] learn more about the COVID-19 vaccine, we invite you to visit the CDC website for a list of frequently asked questions. https://www.cdc.gov/coronavirus/2019-ncov/vaccines/faq.html [email or web address] Patient Portal Access Instructions: Stay connected with your healthcare team and access your personal medical information anytime with the [facility] Patient Portal. If you would like a full copy of your medical records please contact the [facility] Medical Records Department Wednesday through Wednesday between 8a.m. and 4:30p.m. Please follow the directions below to access the portal: 1.Access the email account you provided upon registration to the hospital.2.Look for an invitation email from [facility].3.Open the email and access the invitation link: Accept Invitation to [facility]4.Fill in the required becerra to create your account. Sign into [email or web address] with your username and password that you created in the above steps to stay up to date. You can then view a summary of results, a summary of your visits, and the ability to download your summaries to your computer or send the information securely to a physician. Remember that your healthcare information is confidential, so carefully consider who you will allow to register on the [facility] Patient Portal for access to your information. You can also access the [facility] Patient Portal on the [employer] shell. Simply click on Health Records under [employer] and then click on the [place] logo. HOW TO SAFELY DISPOSE OF PRESCRIPTION MEDICATIONS Please use one of the following methods to safely dispose of your unused medications. 1.Use a drug disposal kit: the drug disposal pouch allows you to safely discard your old and unuseddrugs. Ask your nurse to give you one when you are discharged.2.Visit a local take-back location: Many local pharmacies and police departments have programs that collect old and unwanted prescriptiondrugs. Call your local pharmacy or go to http://[employer].Shaser/8U3Un1d to find one close to you.3.Make use of household items: Use cat litter or old coffee grounds to dispose medications if other options arenot available. Mix your drugs with these household products, seal them in an airtight container andthrow it into the garbage. Call [facility]: [phone] to be sure your drugs can be disposed of in this way. Some medicines may require a different approach.4.Never flush your medications down the toilet. IF YOU HAVE BEEN PRESCRIBED AN OPIOIDS FOR PAIN If you have been prescribed an opioid (such as hydrocodone, oxycodone or morphine), it is critical to understand the possible side effects and risks of opioid pain medications. Even when taken as directed, opioids can have several side effects including: Tolerance, meaning you might need to take more of a medication for the same pain relief. Nausea, vomiting and/or constipation. Sleepiness, dizziness, dry mouth, confusion, depression or itching. Physical dependence, meaning you have withdrawal symptoms when a medication is stopped ? this can develop within a few days. KNOW YOUR RESPONSIBILITIES It is important to know exactly how much and how often to take the opioid pain medications you are prescribed. Never take opioids in higher amounts or more often than prescribed. Do not combine opioids with alcohol or other drugs that cause drowsiness, such as benzodiazepines, also known as benzos,including diazepam and alprazolam, muscle relaxants or sleep aids. Never sell or share prescriptionopioids. This is illegal. Store opioids in a secure place and out of reach of others (including children, family, friends and visitors). The last page(s) of this document has been signed and retained as a CHART COPY Signatures Patient Education Materials Hip Contusion Hip Strain Back Care Tips Back and Neck Pain, General Medication Leaflets My discharge plan and instructions have been reviewed and explained to me and IANA PAULA TIM D understand my current condition and have read and understand these discharge instructions. I have received a written copy of the plan/instructions. If I have questions, I am aware that I should contact my doctor. 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 Lower lumbar spine predominant degenerative change. IMPRESSION: No acute osseous abnormality by radiograph. Interpreted by: Hector Celeste Preliminary Report By: Hector Celeste Electronically signed By Hector Celeste Dictated Date: 02/02/2025 6:45:04 PM Prelim Date: 02/02/2025 6:46:20 PM Sign Date: 02/02/2025 6:46:20 PM Ordering Provider: ANGEL URENA [facility]06-20-2025 Note* Exam Date Time Procedure Performing Provider Status 02/02/25 6:35 PM XR Pelvis 1 or 2 Views AGUSTIN CELESTE MD; Auth (Verified) [id number] ORIGINAL EXAMINATION: ONE XRAY VIEW OF THE PELVIS 02/02/2025 6:38 pm COMPARISON: None. HISTORY: ORDERING SYSTEM PROVIDED HISTORY: Reason for Exam: pain FINDINGS: No fracture or dislocation. Pelvic and trochanter enthesopathic changes. IMPRESSION: No acute osseous abnormality by radiograph. Interpreted by: Hector Celeste Preliminary Report By: Hector Celeste Electronically signed By Hector Celeste Dictated Date: 02/02/2025 6:41:33 PM Prelim Date: 02/02/2025 6:42:49 PM Sign Date: 02/02/2025 6:42:49 PM Ordering Provider: ANGEL URENA [facility]06-20-2025 Note* Exam Date Time Procedure Performing Provider Status 02/02/25 3:29 PM XR Hip 2-3 Views Right AGUSTIN CELESTE MD; Auth (Verified) [id number] ORIGINAL EXAMINATION: XRAY VIEWS OF THE RIGHT HIP 02/02/2025 6:35 pm COMPARISON: None. HISTORY: ORDERING SYSTEM PROVIDED HISTORY: Reason for Exam: Chronic hip pain that became worse today FINDINGS: No fracture or dislocation. Small globular calcification projects over the greater trochanter superiorly which could reflect sequelae of tendinopathy/calcific tendinitis. IMPRESSION: Small globular calcification projects over the greater trochanter superiorly which could reflect sequelae of tendinopathy/calcific tendinitis. 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 [place] [address] [facility] [address] [facility] [address] Dept: [phone] Dept Loc: [phone] Visit type: Established Patient Reason for Visit: Follow-up (inspire) and Sleep Apnea Assessment and Plan 1. Obstructive sleep apnea - zolpidem (Ambien) 5 MG tablet; Take 1 tablet (5 mg) by mouth Nightly as needed for sleep., Starting Terrie 01/25/2025, Until Wed01/25/2026 at 2359, Normal 2. Insomnia, unspecified type Subjective HPI: Hx of TARIK. Followed with Dr. Elias. Unable to tolerate masks Inspire Device inserted 10/07/[address] Steffen Layne tried for sleep- Trazodone, Mirtazapine, Amitriptyline, Lunesta, Seroquel, Ativan, Ambien Device activated 11/30/23 Start Belsomra 10mg Average of 20 hrs/week He states he is up all night Using the pause a lot He reports the Belsomra is like taking ASA The device is causing neck pain REVIEW OF SYSTEMS: Review of Systems Constitutional: Negative. HENT: Negative. Eyes: Negative. Respiratory: Negative. Cardiovascular: Negative. Gastrointestinal: Negative. Endocrine: Negative. Genitourinary: Negative. Musculoskeletal: Negative. Skin: Negative. Allergic/Immunologic: Negative. Neurological: Negative. Hematological: Negative. Psychiatric/Behavioral: Positive for sleep disturbance. Allergies[1] Current Medications[2] Medical History[3] Social History Tobacco Use Smoking status: Never Smokeless tobacco: Never Substance Use Topics Alcohol use: Yes Alcohol/week: 1.0 - 2.0 standard drink of alcohol Types: 1 - 2 Cans of beer per week Comment: Very occasional; go weeks and sometimes months without Surgical History[4] Family History[5] Objective Vitals: BP 129/80 (BP Location: Right arm, Patient Position: Sitting, BP Cuff Size: Adult) Pulse 69 Ht 5' 5.5 (1.664 m) Wt 202 lb 9.6 oz (91.9 kg) BMI 33.20 kg/m General Appearance: Patient is in no apparent distress. Head is normocephalic, atraumatic Cardiovascular: Regular rate and rhythm. No heart murmurs. No carotid bruit Neurologic: Mentation: Alert and oriented x 3 to person, place and time. Speech and Language: Speech and language normal Concentration and Attention: Concentration normal Memory: Memory normal Fund of Knowledge: Fund of knowledge normal Cranial Nerves: II, III, IV, V, , VII, VIII, IX, X, XI, XII examined and were intact. Motor: Strength: Strength 5 out of 5 with normal tone Alternating Movements: Normal Cogwheel Rigidity: None Tone: Tone is normal Tremor / Involuntary Movements: None Deep Tendon Reflexes: 1 out of 4 symmetrical in all four limbs. Sensory: Normal sensation upper and lower extremities Coordination: Normal coordination upper and lower extremities Gait and Station: Station is normal. Gait is normal Hypoglossal Nerve Stimulation Activation Old Setting New Setting Comment Sensation Threshold V V Function Threshold V V Tongue Protrusion Set Amplitude V 1.0 V Patient Range 0.8 V to 1.5 V 0.8 V to 1.5 V Pulse Width 120 S 120 S Rate 33 Hz 33 Hz Electrode Configuration +-+ +-+ Start Delay 75 Min 75 Min Therapy Duration 9 Hours 9 Hours Pause Time 30 Min 30 Min Data Reviewed and Summarized DIAGNOSTIC TESTING CBC: No results found for: WBC, RBC, HGB, HCT, MCV, MCH, MCHC, RDW, PLT, MPV CMP: No results found for: NA, K, CL, CO2, BUN, CREATININE, AGRATIO, LABGLOM, GLUCOSE, GLU, PROT, CALCIUM, BILITOT, ALKPHOS, AST, ALT BMP: No results found for: NA, K, CL, CO2, BUN, CREATININE, CALCIUM, LABGLOM, GLUCOSE, GLU PT/INR: No results found for: PROTIME, INR PTT: No results found for: APTT, PTT[APTT} FLP: No results found for: CHLPL, TRIG, HDL, LDLCALC, LDLDIRECT TSH: No results found for: TSH VITAMIN B12: No results found for: [id number] No results found for: PHENYTOIN, PHENOBARB, VALPROATE, CBMZ No components found for: TOPIRA @RESULTINGLABINFO@ No results found for: LEVETIRACETA, FERRITIN, CRP, AISHWARYA, ANCA No results found for: SINAN, IMMUNOGLOBUL, OLIGOBANDS No results found for: [id number], HEPCAB No results found for: CRP, ANATITER, ANCA FERRITIN: No results found for: FERRITIN ---- ECG 12 lead Sinus rhythm Borderline prolonged ME interval Electronically Signed On 10-01-2023 19:15:46 EST by Cat Bennett IMPRESSION and PLAN: Diagnosis Plan 1. Obstructive sleep apnea zolpidem (Ambien) 5 MG tablet 2. Insomnia, unspecified type Amplitude reduced Belsomra was not effective Trial of Ambien 5mg nightly-it will call and update Yessenia Wallace, SHOW HORSE DRIVER - CHIP APPLYING MACHINE TENDER, furnish ongoing care related to Tracy Cardoso single, serious and complex condition(s) obstructive sleep apnea. I assume responsibility for the patient's ongoing medical care of this condition. Yessenia Ayala APRN - KEON I spent 30 minutes caring for this patient today, reviewing labs, records, seeing the patient, documenting in the record and arranging for studies. [1] Allergies Allergen Reactions Pollen Extract Other Seasonal allergies. [2] Current Outpatient Medications: aspirin 81 MG EC tablet, Take 81 mg by mouth daily., Disp: , Rfl: B Dyhvxam-Zcbdsm-NM (B COMPLEX 100 TR PO), Take by mouth every morning (before breakfast)., Disp: ,Rfl: carvedilol (Coreg) 25 MG tablet, Take 25 mg by mouth 2 times daily., Disp: , Rfl: cetirizine (ZyrTEC) 10 MG tablet, Take by mouth every morning (before breakfast)., Disp: , Rfl: escitalopram (Lexapro) 5 MG tablet, Take 1 tablet (5 mg) by mouth daily., Disp: 30 tablet, Rfl: 3 [place]-3 Fatty Acids (FISH OIL PO), Take by mouth daily., Disp: , Rfl: Plavix 75 MG tablet, Take 75 mg by mouth daily., Disp: , Rfl: psyllium (Metamucil) 0.36 g capsule, daily., Disp: , Rfl: Repatha SureClick 140 MG/ML injection, Inject 140 mg under the skin every 14 (fourteen) days., Disp: , Rfl: tamsulosin (Flomax) 0.4 MG 24 hr capsule, Take 0.4 mg by mouth daily., Disp: , Rfl: zolpidem (Ambien) 5 MG tablet, Take 1 tablet (5 mg) by mouth Nightly as needed for sleep., Disp: 30tablet, Rfl: 0 [3] Past Medical History: Diagnosis Date Anxiety not any more Arthritis Asthma Brain concussion numerous; skull fracture w/subdural hematoma 1976 Cluster headache occasionally, not frequent Colon polyp CTS (carpal tunnel syndrome) 20 years--surgery 03/06 Depression in the past Head injury 1966 Hyperlipidemia Hypertension Insomnia adulthood Irritable bowel syndrome Liver disease Cirva 2012 Fatty liver Numbness left thigh, right foot/toe Restless leg syndrome years Sleep apnea 20-30 years DO NOT WEAR CPAP Syncope only when I cough [4] Past Surgical History: Procedure Laterality Date ADENOIDECTOMY 1962 BICEPS TENDON REPAIR Left CARPAL TUNNEL RELEASE Right COLONOSCOPY ELBOW SURGERY HERNIA REPAIR Bilateral inguinal KNEE ARTHROSCOPY W/ MENISCECTOMY Bilateral MENISCECTOMY 2019 Bilateral ROSA FUNDOPLICATION OTHER SURGICAL HISTORY N/A 02/11/2023 Evaluation of sleep-disordered breathing exam - Dr. Bourne, [facility] SHOULDER ARTHROSCOPY Left TEARS SURGICAL IMPLANT (HISTORICAL) 10/07/2023 INSPIRE - hypoglossal nerve neurostimulator and generator and breathing snesor implant - DR BOURNE TONSILLECTOMY 1961 TONSILLECTOMY AND ADENOIDECTOMY (HISTORICAL) UPPER GASTROINTESTINAL ENDOSCOPY [5] Family History Problem Relation Name Age of Onset Alcohol abuse Father Adolfo Heart disease Father Adolfo Arthritis Maternal Grandmother Juan Jose Cancer Maternal Grandmother Juan Jose Cancer Other Samiramarisel Urban; daughter documented in this [facility]06-12-2025 Instructions* Patient Instructions* CAROLYNE Huizar CNP - 01/25/2025 2:30 PM EDT Amplitude reduced Belsomra was not effective Trial of Ambien 5mg nightly-it will call and update me documented in this [facility]04-21-2025 History of Present illness Narrative* CAROLYNE Huizar CNP - 12/04/2024 2:30 PM EDT Images from the original note were not included. [facility] [place] [address] [place] [address] [facility] [address] Dept: [phone] Dept Loc: [phone] Visit type: Established Patient Reason for Visit: Follow-up (Inspire) Assessment and Plan 1. Obstructive sleep apnea 2. Insomnia, unspecified type - suvorexant (Belsomra) 10 MG tablet; Take 1 tablet (10 mg) by mouth Nightly as needed for sleep., Starting 12/04/2024, Normal Subjective HPI: Hx of TARIK. Followed with Dr. Elias. Unable to tolerate masks Inspire Device inserted 10/07/[address] Steffen Layne tried for sleep- Trazodone, Mirtazapine, Amitriptyline, Lunesta, Seroquel, Ativan Device activated 11/30/23 He reports his sleep has been good In bed 10:30-11pm and wake time varies but most often 6am He does not use Inspire for naps due to delayed start time His BP is waking him during the night. SBP is running in the 200's at times He continues to have difficulty with falling asleep and often has to pause the device REVIEW OF SYSTEMS: Review of Systems Constitutional: Negative. HENT: Negative. Eyes: Positive for visual disturbance. Respiratory: Negative. Cardiovascular: Negative. Gastrointestinal: Negative. Endocrine: Negative. Genitourinary: Negative. Musculoskeletal: Negative. Skin: Negative. Allergic/Immunologic: Negative. Neurological: Negative. Hematological: Negative. Psychiatric/Behavioral: Positive for sleep disturbance. Allergies Allergen Reactions Pollen Extract Other Seasonal allergies. Current Outpatient Medications: Ascorbic Acid (vitamin C) 1000 MG tablet, Take 1,000 mg by mouth every morning (before breakfast).,Disp: , Rfl: aspirin 81 MG EC tablet, Take 81 mg by mouth daily., Disp: , Rfl: B Wnvzbat-Pcnueu-PQ (B COMPLEX 100 TR PO), Take by mouth every morning (before breakfast)., Disp: ,Rfl: cetirizine (ZyrTEC) 10 MG tablet, Take by mouth every morning (before breakfast)., Disp: , Rfl: cholecalciferol (Vitamin D-3) 125 MCG (5000 UT) capsule, Take 5,000 Units by mouth daily., Disp: , Rfl: escitalopram (Lexapro) 5 MG tablet, Take 1 tablet (5 mg) by mouth daily., Disp: 30 tablet, Rfl: 3 Magnesium Ascorbate powder, every morning (before breakfast)., Disp: , Rfl: [place]-3 Fatty Acids (FISH OIL PO), Take by mouth daily., Disp: , Rfl: Plavix 75 MG tablet, Take 75 mg by mouth daily., Disp: , Rfl: psyllium (Metamucil) 0.36 g capsule, daily., Disp: , Rfl: Repatha SureClick 140 MG/ML injection, Inject 140 mg under the skin every 14 (fourteen) days., Disp: , Rfl: tamsulosin (Flomax) 0.4 MG 24 hr capsule, Take 0.4 mg by mouth daily., Disp: , Rfl: zinc gluconate 50 MG tablet, Take 100 mg by mouth daily., Disp: , Rfl: suvorexant (Belsomra) 10 MG tablet, Take 1 tablet (10 mg) by mouth Nightly as needed for sleep., Disp: 30 tablet, Rfl: 0 Past Medical History: Diagnosis Date Anxiety not any more Arthritis Asthma Brain concussion numerous; skull fracture w/subdural hematoma 1976 Cluster headache occasionally, not frequent Colon polyp CTS (carpal tunnel syndrome) 20 years--surgery 03/06 Depression in the past Head injury 1966 Hyperlipidemia Hypertension Insomnia adulthood Irritable bowel syndrome Numbness left thigh, right foot/toe Restless leg syndrome years Sleep apnea 20-30 years DO NOT WEAR CPAP Syncope only when I cough Social History Tobacco Use Smoking status: Never Smokeless tobacco: Never Substance Use Topics Alcohol use: Yes Alcohol/week: 1.0 - 2.0 standard drink of alcohol Types: 1 - 2 Cans of beer per week Comment: Very occasional; go weeks and sometimes months without Past Surgical History: Procedure Laterality Date BICEPS TENDON REPAIR Left CARPAL TUNNEL RELEASE Right COLONOSCOPY ELBOW SURGERY HERNIA REPAIR Bilateral inguinal KNEE ARTHROSCOPY W/ MENISCECTOMY Bilateral ROSA FUNDOPLICATION OTHER SURGICAL HISTORY N/A 02/11/2023 Evaluation of sleep-disordered breathing exam - Dr. Bourne, [facility] SHOULDER ARTHROSCOPY Left TEARS SURGICAL IMPLANT (HISTORICAL) 10/07/2023 INSPIRE - hypoglossal nerve neurostimulator and generator and breathing snesor implant - DR BOURNE TONSILLECTOMY AND ADENOIDECTOMY (HISTORICAL) UPPER GASTROINTESTINAL ENDOSCOPY No family history on file. Objective Vitals: BP 134/78 (BP Location: Right arm, Patient Position: Sitting, BP Cuff Size: Adult) Pulse 60 Ht 5' 5.5 (1.664 m) Wt 208 lb 9.6 oz (94.6 kg) BMI 34.18 kg/m General Appearance: Patient is in no apparent distress. Head is normocephalic, atraumatic Cardiovascular: Regular rate and rhythm. No heart murmurs. No carotid bruit Neurologic: Mentation: Alert and oriented x 3 to person, place and time. Speech and Language: Speech and language normal Concentration and Attention: Concentration normal Memory: Memory normal Fund of Knowledge: Fund of knowledge normal Cranial Nerves: II, III, IV, V, , VII, VIII, IX, X, XI, XII examined and were intact. Motor: Strength: Strength 5 out of 5 with normal tone Alternating Movements: Normal Cogwheel Rigidity: None Tone: Tone is normal Tremor / Involuntary Movements: None Deep Tendon Reflexes: 1 out of 4 symmetrical in all four limbs. Sensory: Normal sensation upper and lower extremities Coordination: Normal coordination upper and lower extremities Gait and Station: Station is normal. Gait is normal Hypoglossal Nerve Stimulation Activation Old Setting New Setting Comment Sensation Threshold V V Function Threshold V V Tongue Protrusion Set Amplitude 1.0 V V Patient Range 0.8 V to 1.5V V to V Pulse Width 120 S S Rate 33 Hz 33 Hz Electrode Configuration Start Delay 75 Min Min Therapy Duration Hours Hours Pause Time Min Min Data Reviewed and Summarized DIAGNOSTIC TESTING CBC: No results found for: WBC, RBC, HGB, HCT, MCV, MCH, MCHC, RDW, PLT, MPV CMP: No results found for: NA, K, CL, CO2, BUN, CREATININE, AGRATIO, LABGLOM, GLUCOSE, GLU, PROT, CALCIUM, BILITOT, ALKPHOS, AST, ALT BMP: No results found for: NA, K, CL, CO2, BUN, CREATININE, CALCIUM, LABGLOM, GLUCOSE, GLU PT/INR: No results found for: PROTIME, INR PTT: No results found for: APTT, PTT[APTT} FLP: No results found for: CHLPL, TRIG, HDL, LDLCALC, LDLDIRECT TSH: No results found for: TSH VITAMIN B12: No results found for: [id number] No results found for: PHENYTOIN, PHENOBARB, VALPROATE, CBMZ No components found for: TOPIRA @RESULTINGLABINFO@ No results found for: LEVETIRACETA, FERRITIN, CRP, AISHWARYA, ANCA No results found for: SINAN, IMMUNOGLOBUL, OLIGOBANDS No results found for: [id number], HEPCAB No results found for: CRP, ANATITER, ANCA FERRITIN: No results found for: FERRITIN ---- ECG 12 lead Sinus rhythm Borderline prolonged ME interval Electronically Signed On 10-01-2023 19:15:46 EST by Cat Bennett IMPRESSION and PLAN: Diagnosis Plan 1. Obstructive sleep apnea 2. Insomnia, unspecified type suvorexant (Belsomra) 10 MG tablet No changes made to device He is to continue with current level and attempt to increase 1 level in 2 weeks Will start Belsomra 10mg nightly I, CAROLYNE Matson CNP, furnish ongoing care related to Tracy Cardoso single, serious and complex condition(s) obstructive sleep apnea. I assume responsibility for the patient's ongoing medical care of this condition. CAROLYNE Matson CNP I spent 30 minutes caring for this patient today, reviewing labs, records, seeing the patient, documenting in the record and arranging for studies. documented in this [facility]04-18-2025 Evaluation note* Diagnosis Onset Date Resolution Status Admit Date Coronary artery disease acute A pril 2024 11:21am CVA (cerebral vascular accident) acute December 01, 2024 11:21am Essential (primary) hypertension inactive December 01, 2024 11:21am [facility] Work Phone: 1(316) 224-315004-18-2025 Evaluation note* Diagnosis Onset Date Resolution Status Admit Date Coronary artery disease acute A pril 2024 11:21am CVA (cerebral vascular accident) acute December 01, 2024 11:21am Essential (primary) hypertension inactive December 01, 2024 11:21am Degenerative disc disease (D DD) of lumbar region with discogenic back pain acute February 15, 2:23pm Lumbar stenosis with neuroge jaquelin claudication acute February 15, 2025 2 :23pm [facility] Work Phone: 1(580) 972-460602-25-2025 Telephone encounter Note* Telephone Encounter - CAROLYNE Huizar CNP - 10/10/2024 12:03 PM EST Spoke with patient on the phone regarding test results. All questions answered. [id number] Miscellaneous Notes* Telephone Encounter - CAROLYNE Huizar CNP - 10/10/2024 12:03 PM EST Spoke with patient on the phone regarding test results. All questions answered. He is following with Cardiology * Telephone Encounter - Carolyn Patterson - 10/10/2024 10:57 AM EST Name of caller: Tracy Contact phone number: [phone] Relationship to Patient: patient Provider: KEON Ayala Practice: [facility] [place] Chief Complaint/Reason for Call: Tracy states that he is returning a call to [facility] to discuss resultsof TTE, KARUNA and Carotids and would like to receive a call back as soon as possible. CAC attempted back line and reached out in teams, staff member was not available. Please advise. Best time of day caller can be reached: Any Patient advised that office/PCP has 24-48 business hours to return their call: No documented in this encounterSKeenan Private [id number] Telephone encounter Note* Telephone Encounter - Carolyn Patterson - 10/10/2024 10:57 AM EST Name of caller: Tracy Contact phone number: [phone] Relationship to Patient: patient Provider: KEON Ayala Practice: [facility] [place] Chief Complaint/Reason for Call: Tracy states that he is returning a call to [facility] to discuss resultsof TTE, KARUNA and Carotids and would like to receive a call back as soon as possible. CAC attempted back line and reached out in teams, staff member was not available. Please advise. Best time of day caller can be reached: Any Patient advised that office/PCP has 24-48 business hours to return their call: No [id number] Telephone encounter Note* Telephone Encounter - CAROLYNE Huizar CNP - 10/06/2024 4:07 PM EST LMOM for pt to call back to discuss results of TTE, KARUNA and Carotids [id number] Miscellaneous Notes* Telephone Encounter - CAROLYNE Huizar CNP - 10/06/2024 4:07 PM EST LMOM for pt to call back to discuss results of TTE, KARUNA and Carotids documented in this [facility]02-19-2025 History of Present illness Narrative* CAROLYNE Huizar CNP - 10/04/2024 11:00 AM EST Visit type: Established Patient Reason for Visit: Follow-up (Inspire) Assessment and Plan 1. Obstructive sleep apnea 2. Insomnia, unspecified type 3. Cerebrovascular accident (CVA), unspecified mechanism (HCC) 4. Depression, unspecified depression type Subjective HPI: Hx of TARIK. Followed with Dr. Elias. Unable to tolerate masks Inspire Device inserted 10/07/[address] 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 He gets sensory overload with lights and lots of people Last eye exam 1 month ago He says he is struggling with depression. He admits to suicidal ideation. At times feels anxious and has panic attacks He was getting counseling. It was helping He thinks in the past he tried Prozac and Zoloft REVIEW OF SYSTEMS: Review of Systems Constitutional: Negative. HENT: Negative. Eyes: Positive for visual disturbance. Respiratory: Negative. Cardiovascular: Negative. Gastrointestinal: Negative. Endocrine: Negative. Genitourinary: Negative. Musculoskeletal: Negative. Skin: Negative. Allergic/Immunologic: Negative. Hematological: Negative. Psychiatric/Behavioral: Positive for dysphoric mood, sleep disturbance and suicidal ideas. The patient is nervous/anxious. Allergies Allergen Reactions Pollen Extract Other Seasonal allergies. Outpatient Medications Prior to Visit Medication Sig Dispense Refill Ascorbic Acid (vitamin C) 1000 MG tablet Take 1,000 mg by mouth every morning (before breakfast). aspirin 81 MG EC tablet Take 81 mg by mouth daily. B Mikvunq-Dvvtyq-UB (B COMPLEX 100 TR PO) Take by mouth every morning (before breakfast). cetirizine (ZyrTEC) 10 MG tablet Take by mouth every morning (before breakfast). cholecalciferol (Vitamin D-3) 125 MCG (5000 UT) capsule Take 5,000 Units by mouth daily. cloNIDine (Catapres) 0.1 MG tablet Take 0.1 mg by mouth Daily as needed. hydrALAZINE (Apresoline) 50 MG tablet 50 mg 2 times daily. Magnesium Ascorbate powder every morning (before breakfast). metoprolol succinate XL (Toprol-XL) 50 MG 24 hr tablet 50 mg in the morning and 50 mg in the evening. mirtazapine (Remeron) 45 MG tablet Take 1 tablet (45 mg) by mouth Nightly. 90 tablet 1 Plavix 75 MG tablet Take 75 mg by mouth daily. psyllium (Metamucil) 0.36 g capsule daily. Repatha SureClick 140 MG/ML injection Inject 140 mg under the skin every 14 (fourteen) days. tamsulosin (Flomax) 0.4 MG 24 hr capsule Take 0.4 mg by mouth daily. zinc gluconate 50 MG tablet Take 100 mg by mouth daily. Probiotic Product (PROBIOTIC BLEND PO) Take by mouth every morning (before breakfast). ALPHA LIPOIC ACID PO Take by mouth every morning (before breakfast). (Patient not taking: Reported on 10/04/2024) atorvastatin (Lipitor) 40 MG tablet Take 40 mg by mouth. (Patient not taking: Reported on 10/04/2024) irbesartan (Avapro) 75 MG tablet 75 mg. (Patient not taking: Reported on 10/04/2024) nitroglycerin (Nitrostat) 0.[address] 0.4 mg under the tongue every 5 minutes as needed. Quviviq 25 MG tablet Take 1 tablet by mouth daily. (Patient not taking: Reported on 10/04/2024) Vitamin E 100 units tablet Take by mouth every morning (before breakfast). (Patient not taking: Reported on 10/04/2024) No facility-administered medications prior to visit. Past Medical History: Diagnosis Date Anxiety not any more Arthritis Asthma Brain concussion numerous; skull fracture w/subdural hematoma 1976 Cluster headache occasionally, not frequent Colon polyp CTS (carpal tunnel syndrome) 20 years--surgery 03/06 Depression in the past Head injury 1967 Hyperlipidemia Hypertension Insomnia adulthood Irritable bowel syndrome Numbness left thigh, right foot/toe Restless leg syndrome years Sleep apnea 20-30 years DO NOT WEAR CPAP Syncope only when I cough Social History Tobacco Use Smoking status: Never Smokeless tobacco: Never Substance Use Topics Alcohol use: Yes Alcohol/week: 1.0 - 2.0 standard drink of alcohol Types: 1 - 2 Cans of beer per week Comment: Very occasional; go weeks and sometimes months without Past Surgical History: Procedure Laterality Date BICEPS TENDON REPAIR Left CARPAL TUNNEL RELEASE Right COLONOSCOPY ELBOW SURGERY HERNIA REPAIR Bilateral inguinal KNEE ARTHROSCOPY W/ MENISCECTOMY Bilateral ROSA FUNDOPLICATION OTHER SURGICAL HISTORY N/A 02/11/2023 Evaluation of sleep-disordered breathing exam - Dr. Bourne, [facility] SHOULDER ARTHROSCOPY Left TEARS SURGICAL IMPLANT (HISTORICAL) 10/07/2023 INSPIRE - hypoglossal nerve neurostimulator and generator and breathing snesor implant - DR BOURNE TONSILLECTOMY AND ADENOIDECTOMY (HISTORICAL) UPPER GASTROINTESTINAL ENDOSCOPY No family history on file. Objective Vitals: BP 139/89 (BP Location: Right arm, Patient Position: Sitting, BP Cuff Size: Adult long) Pulse 69 Ht 5' 5.5 (1.664 m) Wt 210 lb 6.4 oz (95.4 kg) BMI 34.48 kg/m General Appearance: Patient is in no apparent distress. Head is normocephalic, atraumatic Tearful Cardiovascular: Regular rate and rhythm. No heart murmurs. No carotid bruit Neurologic: Mentation: Alert and oriented x 3 to person, place and time. Speech and Language: Speech and language normal Concentration and Attention: Concentration normal Memory: Memory normal Fund of Knowledge: Fund of knowledge normal Cranial Nerves: II, III, IV, V, , VII, VIII, IX, X, XI, XII examined and were intact. Left homonymous hemianopsia Motor: Strength: Strength 5 out of 5 with normal tone Alternating Movements: Normal Cogwheel Rigidity: None Tone: Tone is normal Tremor / Involuntary Movements: None Deep Tendon Reflexes: 1 out of 4 symmetrical in all four limbs. Sensory: Normal sensation upper and lower extremities Coordination: Normal coordination upper and lower extremities Gait and Station: Station is normal. Gait is normal Data Reviewed and Summarized DIAGNOSTIC TESTING CBC: No results found for: WBC, RBC, HGB, HCT, MCV, MCH, MCHC, RDW, PLT, MPV CMP: No results found for: NA, K, CL, CO2, BUN, CREATININE, AGRATIO, LABGLOM, GLUCOSE, GLU, PROT, CALCIUM, BILITOT, ALKPHOS, AST, ALT BMP: No results found for: NA, K, CL, CO2, BUN, CREATININE, CALCIUM, LABGLOM, GLUCOSE, GLU PT/INR: No results found for: PROTIME, INR PTT: No results found for: APTT, PTT[APTT} FLP: No results found for: CHLPL, TRIG, HDL, LDLCALC, LDLDIRECT TSH: No results found for: TSH VITAMIN B12: No results found for: [id number] No results found for: PHENYTOIN, PHENOBARB, VALPROATE, CBMZ No components found for: TOPIRA @RESULTINGLABINFO@ No results found for: LEVETIRACETA, FERRITIN, CRP, AISHWARYA, ANCA No results found for: SINAN, IMMUNOGLOBUL, OLIGOBANDS No results found for: [id number], HEPCAB No results found for: CRP, ANATITER, ANCA FERRITIN: No results found for: FERRITIN ---- ECG 12 lead Sinus rhythm Borderline prolonged ME interval Electronically Signed On 10-01-2023 19:15:46 EST by Cat Donald @[facility]AP[facility]ITALTHIRO@ IMPRESSION and PLAN: Problem List Items Addressed This Visit None Visit Diagnoses Obstructive sleep apnea - Primary Insomnia, unspecified type Cerebrovascular accident (CVA), unspecified mechanism (HCC) Depression, unspecified depression type No adjustments made to Inspire Device Continue Aspirin and Plavix daily Need to review [place] records-patient states he had TTE and KARUNA Start Lexapro 5mg He declined Speech Therapy for cognitive issues CAROLYNE Matson CNP I spent 30 minutes caring for this patient today, reviewing labs, records, seeing the patient, documenting in the record and arranging for studies. Electronically signed by @MEMDNR@ on @TDNR@ at @NOWNR@ documented in this [facility]02-19-2025 Instructions* Patient Instructions* CAROLYNE Huizar CNP - 10/04/2024 11:00 AM EST No adjustments made to Inspire Device Continue Aspirin and Plavix daily Need to review [place] records-patient states he had TTE and KARUNA Start Lexapro 5mg He declined Speech Therapy for cognitive issues documented in this [facility]12-31-2024 Note* Exam Date Time Procedure Performing Provider Status 08/15/24 9:25 AM Echocardiogram, Adul t with Bubble Study- MARLENA MAYFIELD MD; Auth (Verified) [facility]12-17-2024 History of Present illness Narrative * CAROLYNE Huizar CNP - 08/01/2024 10:00 AM EST Visit type: Established Patient Reason for Visit: Follow-up and Sleeping Problem Assessment and Plan 1. Obstructive sleep apnea Subjective HPI: Hx of TARIK. Followed with Dr. Elias. Unable to tolerate masks Inspire Device inserted 10/07/[address] Steffen Layne tried for sleep- Trazodone, Mirtazapine, Amitriptyline, Lunesta, Seroquel, Ativan Device activated 11/30/23 Last OV Remeron increased to 45mg Pt reports that device was working well but then his jaw was giving him problems. He has not been able to use for about 10 days While not using he is waking gasping for air and having panic attacks REVIEW OF SYSTEMS: Review of Systems Constitutional: Negative. HENT: Negative. Eyes: Negative. Respiratory: Negative. Cardiovascular: Negative. Gastrointestinal: Negative. Endocrine: Negative. Genitourinary: Negative. Musculoskeletal: Negative. Skin: Negative. Allergic/Immunologic: Negative. Neurological: Negative. Hematological: Negative. Psychiatric/Behavioral: Positive for sleep disturbance. Allergies Allergen Reactions Pollen Extract Other Seasonal allergies. Outpatient Medications Prior to Visit Medication Sig Dispense Refill ALPHA LIPOIC ACID PO Take by mouth every morning (before breakfast). Ascorbic Acid (vitamin C) 1000 MG tablet Take 1,000 mg by mouth every morning (before breakfast). aspirin 81 MG EC tablet Take 81 mg by mouth daily. atorvastatin (Lipitor) 40 MG tablet Take 40 mg by mouth. B Ycfdiky-Evnybx-UO (B COMPLEX 100 TR PO) Take by mouth every morning (before breakfast). cetirizine (ZyrTEC) 10 MG tablet Take by mouth every morning (before breakfast). cholecalciferol (Vitamin D-3) 125 MCG (5000 UT) capsule Take 5,000 Units by mouth daily. cloNIDine (Catapres) 0.1 MG tablet Take 0.1 mg by mouth Daily as needed. hydrALAZINE (Apresoline) 50 MG tablet 50 mg 2 times daily. irbesartan (Avapro) 75 MG tablet 75 mg. Magnesium Ascorbate powder every morning (before breakfast). metoprolol succinate XL (Toprol-XL) 50 MG 24 hr tablet 50 mg in the morning and 50 mg in the evening. mirtazapine (Remeron) 45 MG tablet Take 1 tablet (45 mg) by mouth Nightly. 90 tablet 1 nitroglycerin (Nitrostat) 0.[address] 0.4 mg under the tongue every 5 minutes as needed. Plavix 75 MG tablet Take 75 mg by mouth daily. Probiotic Product (PROBIOTIC BLEND PO) Take by mouth every morning (before breakfast). psyllium (Metamucil) 0.36 g capsule daily. Quviviq 25 MG tablet Take 1 tablet by mouth daily. tamsulosin (Flomax) 0.4 MG 24 hr capsule Take 0.4 mg by mouth daily. Vitamin E 100 units tablet Take by mouth every morning (before breakfast). zinc gluconate 50 MG tablet Take 100 mg by mouth daily. No facility-administered medications prior to visit. Past Medical History: Diagnosis Date Anxiety not any more Arthritis Asthma Brain concussion numerous; skull fracture w/subdural hematoma 1976 Cluster headache occasionally, not frequent Colon polyp CTS (carpal tunnel syndrome) 20 years--surgery 03/06 Depression in the past Head injury 1966 Hyperlipidemia Hypertension Insomnia adulthood Irritable bowel syndrome Numbness left thigh, right foot/toe Restless leg syndrome years Sleep apnea 20-30 years DO NOT WEAR CPAP Syncope only when I cough Social History Tobacco Use Smoking status: Never Smokeless tobacco: Never Substance Use Topics Alcohol use: Yes Alcohol/week: 1.0 - 2.0 standard drink of alcohol Types: 1 - 2 Cans of beer per week Comment: Very occasional; go weeks and sometimes months without Past Surgical History: Procedure Laterality Date BICEPS TENDON REPAIR Left CARPAL TUNNEL RELEASE Right COLONOSCOPY ELBOW SURGERY HERNIA REPAIR Bilateral inguinal KNEE ARTHROSCOPY W/ MENISCECTOMY Bilateral ROSA FUNDOPLICATION OTHER SURGICAL HISTORY N/A 02/11/2023 Evaluation of sleep-disordered breathing exam - Dr. Bourne, [facility] SHOULDER ARTHROSCOPY Left TEARS SURGICAL IMPLANT (HISTORICAL) 10/07/2023 INSPIRE - hypoglossal nerve neurostimulator and generator and breathing snesor implant - DR BOURNE TONSILLECTOMY AND ADENOIDECTOMY (HISTORICAL) UPPER GASTROINTESTINAL ENDOSCOPY No family history on file. Objective Vitals: BP 137/82 (BP Location: Left arm, Patient Position: Sitting, BP Cuff Size: Adult) Pulse 71 Ht 5' 5.5 (1.664 m) Wt 209 lb 3.2 oz (94.9 kg) BMI 34.28 kg/m General Appearance: Patient is in no apparent distress. Head is normocephalic, atraumatic Cardiovascular: Regular rate and rhythm. No heart murmurs. No carotid bruit Neurologic: Mentation: Alert and oriented x 3 to person, place and time. Speech and Language: Speech and language normal Concentration and Attention: Concentration normal Memory: Memory normal Fund of Knowledge: Fund of knowledge normal Cranial Nerves: II, III, IV, V, , VII, VIII, IX, X, XI, XII examined and were intact. Motor: Strength: Strength 5 out of 5 with normal tone Alternating Movements: Normal Cogwheel Rigidity: None Tone: Tone is normal Tremor / Involuntary Movements: None Deep Tendon Reflexes: 1 out of 4 symmetrical in all four limbs. Sensory: Normal sensation upper and lower extremities Coordination: Normal coordination upper and lower extremities Gait and Station: Station is normal. Gait is normal Data Reviewed and Summarized DIAGNOSTIC TESTING CBC: No results found for: WBC, RBC, HGB, HCT, MCV, MCH, MCHC, RDW, PLT, MPV CMP: No results found for: NA, K, CL, CO2, BUN, CREATININE, AGRATIO, LABGLOM, GLUCOSE, GLU, PROT, CALCIUM, BILITOT, ALKPHOS, AST, ALT BMP: No results found for: NA, K, CL, CO2, BUN, CREATININE, CALCIUM, LABGLOM, GLUCOSE, GLU PT/INR: No results found for: PROTIME, INR PTT: No results found for: APTT, PTT[APTT} FLP: No results found for: CHLPL, TRIG, HDL, LDLCALC, LDLDIRECT TSH: No results found for: TSH VITAMIN B12: No results found for: [id number] No results found for: PHENYTOIN, PHENOBARB, VALPROATE, CBMZ No components found for: TOPIRA @RESULTINGLABINFO@ No results found for: LEVETIRACETA, FERRITIN, CRP, AISHWARYA, ANCA No results found for: SINAN, IMMUNOGLOBUL, OLIGOBANDS No results found for: [id number], HEPCAB No results found for: CRP, ANATITER, ANCA FERRITIN: No results found for: FERRITIN ---- ECG 12 lead Sinus rhythm Borderline prolonged ME interval Electronically Signed On 10-01-2023 19:15:46 EST by Cat Bennett @[facility]ENTER[facility]POINTMENTTHISPROV@ IMPRESSION and PLAN: Problem List Items Addressed This Visit None Visit Diagnoses Obstructive sleep apnea - Primary Amplitude changed to 1.0V Lower limit changed to 0.8V Upper limit 1.5V Pulse width increased to 120 Rate left at 33 No problem-specific Assessment & Plan notes found for this encounter. CAROLYNE Matson CNP I spent 30 minutes caring for this patient today, reviewing labs, records, seeing the patient, documenting in the record and arranging for studies. Electronically signed by @[email or web address]@ on @TDNR@ at @NOWNR@ documented in this [place] [id number] Telephone encounter Note* Telephone Encounter - Belgica Lopez MA - 06/20/2024 1:26 PM EST Results are in media [place] [id number] Miscellaneous Notes* Telephone Encounter - Belgica Lopez MA - 06/20/2024 1:26 PM EST Results are in media * Telephone Encounter - Belgica Lopez MA - 06/20/2024 12:47 PM EST Request has been faxed * Telephone Encounter - CAROLYNE Huizar CNP - 06/20/2024 12:40 PM EST I went thru [place] records 3 times I do not see an Echocardiogram, Carotid study, A1c or Lipid panel Can someone please contact them again documented in this [place] [id number] Telephone encounter Note* Telephone Encounter - Belgica Lopez MA - 06/20/2024 12:47 PM EST Request has been faxed [facility] [id number] Telephone encounter Note* Telephone Encounter - CAROLYNE Huizar CNP - 06/20/2024 12:40 PM EST I went thru [place] records 3 times I do not see an Echocardiogram, Carotid study, A1c or Lipid panel Can someone please contact them again [facility]11-05-2024 History of Present illness Narrative* CAROLYNE Huizar CNP - 06/20/2024 10:00 AM EST Visit type: Established Patient Reason for Visit: Follow-up and Sleep Apnea Assessment and Plan 1. Obstructive sleep apnea 2. Insomnia, unspecified type 3. Cerebrovascular accident (CVA), unspecified mechanism (HCC) 4. Left homonymous hemianopsia 5. Hyperlipidemia, unspecified hyperlipidemia type Subjective HPI: Hx of TARIK. Followed with Dr. Elias. Unable to tolerate masks Inspire Device inserted 10/07/[address] Steffen Layne tried for sleep- Trazodone, Mirtazapine, Amitriptyline, Lunesta, Seroquel, Ativan Device activated 11/30/23 Pt prefers to sleep on his side and stomach He states that Remeron 30mg was effective for sleep but is no longer effective While using gummies, he states his sleep was good On 04/19/24 he had cardiac stent placed On 04/20/24 he presented to [place] ER with confusion. He was trying to use the restroom and didn't know what to do. He had uncontrollable mvmts with his arm He states he is unable to recall a lot of the details He says while inpatient his bowels, bladder stopped working He had left side neglect and double vision Over the past 2 weeks he has had 90% improvement With prolonged sitting or lying down, after standing he will hear a whooshing sound He was getting frequent headaches Located right pentecostal Occasional dizziness No longer using a cane He had home care and was discharged. Suggested out pt therapy but he declined He had been taking low dose ASA and Plavix He states for stent placement he is to stay on Plavix times 1 yr He had a repeat CT yesterday Pt states his stroke was hemorrhagic Outside records- CT head showed 4.7cm right parietal intraparenchymal hemorrhage with extension into right lateral ventricle. Surrounding edema but no significant midline shift He was given 1 unit of plts Noted to be hypertensive upon admission Done 01/2024 A1c=6.1 YAT=094 Carotids 03/2023 Bilateral 1-39% No Echo on file REVIEW OF SYSTEMS: Review of Systems Constitutional: Negative. HENT: Negative. Eyes: Positive for visual disturbance. Respiratory: Negative. Cardiovascular: Negative. Gastrointestinal: Negative. Endocrine: Negative. Genitourinary: Negative. Musculoskeletal: Negative. Skin: Negative. Allergic/Immunologic: Negative. Neurological: Positive for dizziness and headaches. Hematological: Negative. Psychiatric/Behavioral: Positive for sleep disturbance. Allergies Allergen Reactions Pollen Extract Other Seasonal allergies. Outpatient Medications Prior to Visit Medication Sig Dispense Refill ALPHA LIPOIC ACID PO Take by mouth every morning (before breakfast). Ascorbic Acid (vitamin C) 1000 MG tablet Take 1,000 mg by mouth every morning (before breakfast). aspirin 81 MG EC tablet Take 81 mg by mouth daily. atorvastatin (Lipitor) 40 MG tablet Take 40 mg by mouth. B Fpnbfpl-Ldwpdh-WO (B COMPLEX 100 TR PO) Take by mouth every morning (before breakfast). cetirizine (ZyrTEC) 10 MG tablet Take by mouth every morning (before breakfast). cholecalciferol (Vitamin D-3) 125 MCG (5000 UT) capsule Take 5,000 Units by mouth daily. cloNIDine (Catapres) 0.1 MG tablet Take 0.1 mg by mouth Daily as needed. hydrALAZINE (Apresoline) 50 MG tablet 50 mg 2 times daily. irbesartan (Avapro) 75 MG tablet 75 mg. Magnesium Ascorbate powder every morning (before breakfast). metoprolol succinate XL (Toprol-XL) 50 MG 24 hr tablet 50 mg in the morning and 50 mg in the evening. nitroglycerin (Nitrostat) 0.[address] 0.4 mg under the tongue every 5 minutes as needed. Plavix 75 MG tablet Take 75 mg by mouth daily. Probiotic Product (PROBIOTIC BLEND PO) Take by mouth every morning (before breakfast). psyllium (Metamucil) 0.36 g capsule daily. Quviviq 25 MG tablet Take 1 tablet by mouth daily. tamsulosin (Flomax) 0.4 MG 24 hr capsule Take 0.4 mg by mouth daily. Vitamin E 100 units tablet Take by mouth every morning (before breakfast). zinc gluconate 50 MG tablet Take 100 mg by mouth daily. mirtazapine (Remeron) 30 MG tablet Take 1 tablet (30 mg) by mouth Nightly. 30 tablet 2 No facility-administered medications prior to visit. Past Medical History: Diagnosis Date Anxiety not any more Arthritis Asthma Brain concussion numerous; skull fracture w/subdural hematoma 1976 Cluster headache occasionally, not frequent Colon polyp CTS (carpal tunnel syndrome) 20 years--surgery 03/06 Depression in the past Head injury 1966 Hyperlipidemia Hypertension Insomnia adulthood Irritable bowel syndrome Numbness left thigh, right foot/toe Restless leg syndrome years Sleep apnea 20-30 years DO NOT WEAR CPAP Syncope only when I cough Social History Tobacco Use Smoking status: Never Smokeless tobacco: Never Substance Use Topics Alcohol use: Yes Alcohol/week: 1.0 - 2.0 standard drink of alcohol Types: 1 - 2 Cans of beer per week Comment: Very occasional; go weeks and sometimes months without Past Surgical History: Procedure Laterality Date BICEPS TENDON REPAIR Left CARPAL TUNNEL RELEASE Right COLONOSCOPY ELBOW SURGERY HERNIA REPAIR Bilateral inguinal KNEE ARTHROSCOPY W/ MENISCECTOMY Bilateral ROSA FUNDOPLICATION OTHER SURGICAL HISTORY N/A 02/11/2023 Evaluation of sleep-disordered breathing exam - Dr. Bourne, [facility] SHOULDER ARTHROSCOPY Left TEARS SURGICAL IMPLANT (HISTORICAL) 10/07/2023 INSPIRE - hypoglossal nerve neurostimulator and generator and breathing snesor implant - DR BOURNE TONSILLECTOMY AND ADENOIDECTOMY (HISTORICAL) UPPER GASTROINTESTINAL ENDOSCOPY No family history on file. Objective Vitals: BP (!) 144/83 (BP Location: Right arm, Patient Position: Sitting, BP Cuff Size: Adult) Pulse 68 Ht 5' 5.5 (1.664 m) Wt 205 lb 3.2 oz (93.1 kg) BMI 33.63 kg/m General Appearance: Patient is in no apparent distress. Head is normocephalic, atraumatic Cardiovascular: Regular rate and rhythm. No heart murmurs. No carotid bruit Neurologic: Mentation: Alert and oriented x 3 to person, place and time. Speech and Language: Speech and language normal Concentration and Attention: Concentration normal Memory: Memory normal Fund of Knowledge: Fund of knowledge normal Cranial Nerves: II, III, IV, V, , VII, VIII, IX, X, XI, XII examined and were intact. Motor: Strength: Strength 5 out of 5 with normal tone Alternating Movements: Normal Cogwheel Rigidity: None Tone: Tone is normal Tremor / Involuntary Movements: None Deep Tendon Reflexes: 1 out of 4 symmetrical in all four limbs. Sensory: Normal sensation upper and lower extremities Coordination: Normal coordination upper and lower extremities Gait and Station: Station is normal. Gait is normal Data Reviewed and Summarized DIAGNOSTIC TESTING CBC: No results found for: WBC, RBC, HGB, HCT, MCV, MCH, MCHC, RDW, PLT, MPV CMP: No results found for: NA, K, CL, CO2, BUN, CREATININE, AGRATIO, LABGLOM, GLUCOSE, GLU, PROT, CALCIUM, BILITOT, ALKPHOS, AST, ALT BMP: No results found for: NA, K, CL, CO2, BUN, CREATININE, CALCIUM, LABGLOM, GLUCOSE, GLU PT/INR: No results found for: PROTIME, INR PTT: No results found for: APTT, PTT[APTT} FLP: No results found for: CHLPL, TRIG, HDL, LDLCALC, LDLDIRECT TSH: No results found for: TSH VITAMIN B12: No results found for: [id number] No results found for: PHENYTOIN, PHENOBARB, VALPROATE, CBMZ No components found for: TOPIRA @RESULTINGLABINFO@ No results found for: LEVETIRACETA, FERRITIN, CRP, AISHWARYA, ANCA No results found for: SINAN, IMMUNOGLOBUL, OLIGOBANDS No results found for: [id number], HEPCAB No results found for: CRP, ANATITER, ANCA FERRITIN: No results found for: FERRITIN ---- ECG 12 lead Sinus rhythm Borderline prolonged ME interval Electronically Signed On 10-01-2023 19:15:46 EST by Cat Bennett @[facility]@ IMPRESSION and PLAN: Problem List Items Addressed This Visit None Visit Diagnoses Obstructive sleep apnea - Primary Insomnia, unspecified type Cerebrovascular accident (CVA), unspecified mechanism (HCC) Left homonymous hemianopsia Hyperlipidemia, unspecified hyperlipidemia type Adjustments made to Inspire Device Increase Remeron to 45mg nightly Continue Aspirin and Plavix daily [place] records reviewed Check Carotid study Check Echocardiogram Goal of LDL <70 He was given handout for foods to reduce Cholesterol No problem-specific Assessment & Plan notes found for this encounter. CAROLYNE Matson CNP I spent 45 minutes caring for this patient today, reviewing labs, records, seeing the patient, documenting in the record and arranging for studies. Electronically signed by @MEMDNR@ on @TDNR@ at @NOWNR@ documented in this [facility]11-05-2024 History of Present illness Narrative* CAROLYNE Huizar CNP - 06/20/2024 10:00 AM EST Visit type: Established Patient Reason for Visit: Follow-up and Sleep Apnea Assessment and Plan 1. Obstructive sleep apnea 2. Insomnia, unspecified type 3. Cerebrovascular accident (CVA), unspecified mechanism (HCC) 4. Left homonymous hemianopsia 5. Hyperlipidemia, unspecified hyperlipidemia type Subjective HPI: Hx of TARIK. Followed with Dr. Elias. Unable to tolerate masks Inspire Device inserted 10/07/[address] Steffen Layne tried for sleep- Trazodone, Mirtazapine, Amitriptyline, Lunesta, Seroquel, Ativan Device activated 11/30/23 Pt prefers to sleep on his side and stomach He states that Remeron 30mg was effective for sleep but is no longer effective While using gummies, he states his sleep was good On 04/19/24 he had cardiac stent placed On 04/20/24 he presented to [place] ER with confusion. He was trying to use the restroom and didn't know what to do. He had uncontrollable mvmts with his arm He states he is unable to recall a lot of the details He says while inpatient his bowels, bladder stopped working He had left side neglect and double vision Over the past 2 weeks he has had 90% improvement With prolonged sitting or lying down, after standing he will hear a whooshing sound He was getting frequent headaches Located right pentecostal Occasional dizziness No longer using a cane He had home care and was discharged. Suggested out pt therapy but he declined He had been taking low dose ASA and Plavix He states for stent placement he is to stay on Plavix times 1 yr He had a repeat CT yesterday Pt states his stroke was hemorrhagic Outside records- CT head showed 4.7cm right parietal intraparenchymal hemorrhage with extension into right lateral ventricle. Surrounding edema but no significant midline shift He was given 1 unit of plts Noted to be hypertensive upon admission Done 01/2024 A1c=6.1 PWG=278 Carotids 03/2023 Bilateral 1-39% No Echo on file REVIEW OF SYSTEMS: Review of Systems Constitutional: Negative. HENT: Negative. Eyes: Positive for visual disturbance. Respiratory: Negative. Cardiovascular: Negative. Gastrointestinal: Negative. Endocrine: Negative. Genitourinary: Negative. Musculoskeletal: Negative. Skin: Negative. Allergic/Immunologic: Negative. Neurological: Positive for dizziness and headaches. Hematological: Negative. Psychiatric/Behavioral: Positive for sleep disturbance. Allergies Allergen Reactions Pollen Extract Other Seasonal allergies. Outpatient Medications Prior to Visit Medication Sig Dispense Refill ALPHA LIPOIC ACID PO Take by mouth every morning (before breakfast). Ascorbic Acid (vitamin C) 1000 MG tablet Take 1,000 mg by mouth every morning (before breakfast). aspirin 81 MG EC tablet Take 81 mg by mouth daily. atorvastatin (Lipitor) 40 MG tablet Take 40 mg by mouth. B Nvrvgbq-Ndadrx-RR (B COMPLEX 100 TR PO) Take by mouth every morning (before breakfast). cetirizine (ZyrTEC) 10 MG tablet Take by mouth every morning (before breakfast). cholecalciferol (Vitamin D-3) 125 MCG (5000 UT) capsule Take 5,000 Units by mouth daily. cloNIDine (Catapres) 0.1 MG tablet Take 0.1 mg by mouth Daily as needed. hydrALAZINE (Apresoline) 50 MG tablet 50 mg 2 times daily. irbesartan (Avapro) 75 MG tablet 75 mg. Magnesium Ascorbate powder every morning (before breakfast). metoprolol succinate XL (Toprol-XL) 50 MG 24 hr tablet 50 mg in the morning and 50 mg in the evening. nitroglycerin (Nitrostat) 0.[address] 0.4 mg under the tongue every 5 minutes as needed. Plavix 75 MG tablet Take 75 mg by mouth daily. Probiotic Product (PROBIOTIC BLEND PO) Take by mouth every morning (before breakfast). psyllium (Metamucil) 0.36 g capsule daily. Quviviq 25 MG tablet Take 1 tablet by mouth daily. tamsulosin (Flomax) 0.4 MG 24 hr capsule Take 0.4 mg by mouth daily. Vitamin E 100 units tablet Take by mouth every morning (before breakfast). zinc gluconate 50 MG tablet Take 100 mg by mouth daily. mirtazapine (Remeron) 30 MG tablet Take 1 tablet (30 mg) by mouth Nightly. 30 tablet 2 No facility-administered medications prior to visit. Past Medical History: Diagnosis Date Anxiety not any more Arthritis Asthma Brain concussion numerous; skull fracture w/subdural hematoma 1976 Cluster headache occasionally, not frequent Colon polyp CTS (carpal tunnel syndrome) 20 years--surgery 03/06 Depression in the past Head injury 1967 Hyperlipidemia Hypertension Insomnia adulthood Irritable bowel syndrome Numbness left thigh, right foot/toe Restless leg syndrome years Sleep apnea 20-30 years DO NOT WEAR CPAP Syncope only when I cough Social History Tobacco Use Smoking status: Never Smokeless tobacco: Never Substance Use Topics Alcohol use: Yes Alcohol/week: 1.0 - 2.0 standard drink of alcohol Types: 1 - 2 Cans of beer per week Comment: Very occasional; go weeks and sometimes months without Past Surgical History: Procedure Laterality Date BICEPS TENDON REPAIR Left CARPAL TUNNEL RELEASE Right COLONOSCOPY ELBOW SURGERY HERNIA REPAIR Bilateral inguinal KNEE ARTHROSCOPY W/ MENISCECTOMY Bilateral ROSA FUNDOPLICATION OTHER SURGICAL HISTORY N/A 02/11/2023 Evaluation of sleep-disordered breathing exam - Dr. Bourne, [facility] SHOULDER ARTHROSCOPY Left TEARS SURGICAL IMPLANT (HISTORICAL) 10/07/2023 INSPIRE - hypoglossal nerve neurostimulator and generator and breathing snesor implant - DR BOURNE TONSILLECTOMY AND ADENOIDECTOMY (HISTORICAL) UPPER GASTROINTESTINAL ENDOSCOPY No family history on file. Objective Vitals: BP (!) 144/83 (BP Location: Right arm, Patient Position: Sitting, BP Cuff Size: Adult) Pulse 68 Ht 5' 5.5 (1.664 m) Wt 205 lb 3.2 oz (93.1 kg) BMI 33.63 kg/m General Appearance: Patient is in no apparent distress. Head is normocephalic, atraumatic Cardiovascular: Regular rate and rhythm. No heart murmurs. No carotid bruit Neurologic: Mentation: Alert and oriented x 3 to person, place and time. Speech and Language: Speech and language normal Concentration and Attention: Concentration normal Memory: Memory normal Fund of Knowledge: Fund of knowledge normal Cranial Nerves: II, III, IV, V, , VII, VIII, IX, X, XI, XII examined and were intact. Motor: Strength: Strength 5 out of 5 with normal tone Alternating Movements: Normal Cogwheel Rigidity: None Tone: Tone is normal Tremor / Involuntary Movements: None Deep Tendon Reflexes: 1 out of 4 symmetrical in all four limbs. Sensory: Normal sensation upper and lower extremities Coordination: Normal coordination upper and lower extremities Gait and Station: Station is normal. Gait is normal Data Reviewed and Summarized DIAGNOSTIC TESTING CBC: No results found for: WBC, RBC, HGB, HCT, MCV, MCH, MCHC, RDW, PLT, MPV CMP: No results found for: NA, K, CL, CO2, BUN, CREATININE, AGRATIO, LABGLOM, GLUCOSE, GLU, PROT, CALCIUM, BILITOT, ALKPHOS, AST, ALT BMP: No results found for: NA, K, CL, CO2, BUN, CREATININE, CALCIUM, LABGLOM, GLUCOSE, GLU PT/INR: No results found for: PROTIME, INR PTT: No results found for: APTT, PTT[APTT} FLP: No results found for: CHLPL, TRIG, HDL, LDLCALC, LDLDIRECT TSH: No results found for: TSH VITAMIN B12: No results found for: [id number] No results found for: PHENYTOIN, PHENOBARB, VALPROATE, CBMZ No components found for: TOPIRA @RESULTINGLABINFO@ No results found for: LEVETIRACETA, FERRITIN, CRP, AISHWARYA, ANCA No results found for: SINAN, IMMUNOGLOBUL, OLIGOBANDS No results found for: [id number], HEPCAB No results found for: CRP, ANATITER, ANCA FERRITIN: No results found for: FERRITIN ---- ECG 12 lead Sinus rhythm Borderline prolonged ME interval Electronically Signed On 10-01-2023 19:15:46 EST by Cat Bennett @[facility]@ IMPRESSION and PLAN: Problem List Items Addressed This Visit None Visit Diagnoses Obstructive sleep apnea - Primary Insomnia, unspecified type Cerebrovascular accident (CVA), unspecified mechanism (HCC) Left homonymous hemianopsia Hyperlipidemia, unspecified hyperlipidemia type Adjustments made to Inspire Device Increase Remeron to 45mg nightly Continue Aspirin and Plavix daily [place] records reviewed Check Carotid study Check Echocardiogram Goal of LDL <70 He was given handout for foods to reduce Cholesterol No problem-specific Assessment & Plan notes found for this encounter. CAROLYNE Matson CNP I spent 45 minutes caring for this patient today, reviewing labs, records, seeing the patient, documenting in the record and arranging for studies. Electronically signed by @[email or web address]@ on @TDNR@ at @NOWNR@ documented in this [facility]11-05-2024 History of Present illness Narrative* CAROLYNE Huizar CNP - 06/20/2024 10:00 AM EST Visit type: Established Patient Reason for Visit: Follow-up and Sleep Apnea Assessment and Plan 1. Obstructive sleep apnea 2. Insomnia, unspecified type 3. Cerebrovascular accident (CVA), unspecified mechanism (HCC) 4. Left homonymous hemianopsia 5. Hyperlipidemia, unspecified hyperlipidemia type Subjective HPI: Hx of TARIK. Followed with Dr. Elias. Unable to tolerate masks Inspire Device inserted 10/07/[address] Steffen Layne tried for sleep- Trazodone, Mirtazapine, Amitriptyline, Lunesta, Seroquel, Ativan Device activated 11/30/23 Pt prefers to sleep on his side and stomach He states that Remeron 30mg was effective for sleep but is no longer effective While using gummies, he states his sleep was good On 04/19/24 he had cardiac stent placed On 04/20/24 he presented to [place] ER with confusion. He was trying to use the restroom and didn't know what to do. He had uncontrollable mvmts with his arm He states he is unable to recall a lot of the details He says while inpatient his bowels, bladder stopped working He had left side neglect and double vision Over the past 2 weeks he has had 90% improvement With prolonged sitting or lying down, after standing he will hear a whooshing sound He was getting frequent headaches Located right pentecostal Occasional dizziness No longer using a cane He had home care and was discharged. Suggested out pt therapy but he declined He had been taking low dose ASA and Plavix He states for stent placement he is to stay on Plavix times 1 yr He had a repeat CT yesterday Pt states his stroke was hemorrhagic Outside records- CT head showed 4.7cm right parietal intraparenchymal hemorrhage with extension into right lateral ventricle. Surrounding edema but no significant midline shift He was given 1 unit of plts Noted to be hypertensive upon admission Done 01/2024 A1c=6.1 MZY=910 Carotids 03/2023 Bilateral 1-39% No Echo on file REVIEW OF SYSTEMS: Review of Systems Constitutional: Negative. HENT: Negative. Eyes: Positive for visual disturbance. Respiratory: Negative. Cardiovascular: Negative. Gastrointestinal: Negative. Endocrine: Negative. Genitourinary: Negative. Musculoskeletal: Negative. Skin: Negative. Allergic/Immunologic: Negative. Neurological: Positive for dizziness and headaches. Hematological: Negative. Psychiatric/Behavioral: Positive for sleep disturbance. Allergies Allergen Reactions Pollen Extract Other Seasonal allergies. Outpatient Medications Prior to Visit Medication Sig Dispense Refill ALPHA LIPOIC ACID PO Take by mouth every morning (before breakfast). Ascorbic Acid (vitamin C) 1000 MG tablet Take 1,000 mg by mouth every morning (before breakfast). aspirin 81 MG EC tablet Take 81 mg by mouth daily. atorvastatin (Lipitor) 40 MG tablet Take 40 mg by mouth. B Pdkowdo-Nzuzrc-AQ (B COMPLEX 100 TR PO) Take by mouth every morning (before breakfast). cetirizine (ZyrTEC) 10 MG tablet Take by mouth every morning (before breakfast). cholecalciferol (Vitamin D-3) 125 MCG (5000 UT) capsule Take 5,000 Units by mouth daily. cloNIDine (Catapres) 0.1 MG tablet Take 0.1 mg by mouth Daily as needed. hydrALAZINE (Apresoline) 50 MG tablet 50 mg 2 times daily. irbesartan (Avapro) 75 MG tablet 75 mg. Magnesium Ascorbate powder every morning (before breakfast). metoprolol succinate XL (Toprol-XL) 50 MG 24 hr tablet 50 mg in the morning and 50 mg in the evening. nitroglycerin (Nitrostat) 0.[address] 0.4 mg under the tongue every 5 minutes as needed. Plavix 75 MG tablet Take 75 mg by mouth daily. Probiotic Product (PROBIOTIC BLEND PO) Take by mouth every morning (before breakfast). psyllium (Metamucil) 0.36 g capsule daily. Quviviq 25 MG tablet Take 1 tablet by mouth daily. tamsulosin (Flomax) 0.4 MG 24 hr capsule Take 0.4 mg by mouth daily. Vitamin E 100 units tablet Take by mouth every morning (before breakfast). zinc gluconate 50 MG tablet Take 100 mg by mouth daily. mirtazapine (Remeron) 30 MG tablet Take 1 tablet (30 mg) by mouth Nightly. 30 tablet 2 No facility-administered medications prior to visit. Past Medical History: Diagnosis Date Anxiety not any more Arthritis Asthma Brain concussion numerous; skull fracture w/subdural hematoma 1976 Cluster headache occasionally, not frequent Colon polyp CTS (carpal tunnel syndrome) 20 years--surgery 03/06 Depression in the past Head injury 1967 Hyperlipidemia Hypertension Insomnia adulthood Irritable bowel syndrome Numbness left thigh, right foot/toe Restless leg syndrome years Sleep apnea 20-30 years DO NOT WEAR CPAP Syncope only when I cough Social History Tobacco Use Smoking status: Never Smokeless tobacco: Never Substance Use Topics Alcohol use: Yes Alcohol/week: 1.0 - 2.0 standard drink of alcohol Types: 1 - 2 Cans of beer per week Comment: Very occasional; go weeks and sometimes months without Past Surgical History: Procedure Laterality Date BICEPS TENDON REPAIR Left CARPAL TUNNEL RELEASE Right COLONOSCOPY ELBOW SURGERY HERNIA REPAIR Bilateral inguinal KNEE ARTHROSCOPY W/ MENISCECTOMY Bilateral ROSA FUNDOPLICATION OTHER SURGICAL HISTORY N/A 02/11/2023 Evaluation of sleep-disordered breathing exam - Dr. Bourne, [facility] SHOULDER ARTHROSCOPY Left TEARS SURGICAL IMPLANT (HISTORICAL) 10/07/2023 INSPIRE - hypoglossal nerve neurostimulator and generator and breathing snesor implant - DR BOURNE TONSILLECTOMY AND ADENOIDECTOMY (HISTORICAL) UPPER GASTROINTESTINAL ENDOSCOPY No family history on file. Objective Vitals: BP (!) 144/83 (BP Location: Right arm, Patient Position: Sitting, BP Cuff Size: Adult) Pulse 68 Ht 5' 5.5 (1.664 m) Wt 205 lb 3.2 oz (93.1 kg) BMI 33.63 kg/m General Appearance: Patient is in no apparent distress. Head is normocephalic, atraumatic Cardiovascular: Regular rate and rhythm. No heart murmurs. No carotid bruit Neurologic: Mentation: Alert and oriented x 3 to person, place and time. Speech and Language: Speech and language normal Concentration and Attention: Concentration normal Memory: Memory normal Fund of Knowledge: Fund of knowledge normal Cranial Nerves: II, III, IV, V, , VII, VIII, IX, X, XI, XII examined and were intact. Motor: Strength: Strength 5 out of 5 with normal tone Alternating Movements: Normal Cogwheel Rigidity: None Tone: Tone is normal Tremor / Involuntary Movements: None Deep Tendon Reflexes: 1 out of 4 symmetrical in all four limbs. Sensory: Normal sensation upper and lower extremities Coordination: Normal coordination upper and lower extremities Gait and Station: Station is normal. Gait is normal Data Reviewed and Summarized DIAGNOSTIC TESTING CBC: No results found for: WBC, RBC, HGB, HCT, MCV, MCH, MCHC, RDW, PLT, MPV CMP: No results found for: NA, K, CL, CO2, BUN, CREATININE, AGRATIO, LABGLOM, GLUCOSE, GLU, PROT, CALCIUM, BILITOT, ALKPHOS, AST, ALT BMP: No results found for: NA, K, CL, CO2, BUN, CREATININE, CALCIUM, LABGLOM, GLUCOSE, GLU PT/INR: No results found for: PROTIME, INR PTT: No results found for: APTT, PTT[APTT} FLP: No results found for: CHLPL, TRIG, HDL, LDLCALC, LDLDIRECT TSH: No results found for: TSH VITAMIN B12: No results found for: [id number] No results found for: PHENYTOIN, PHENOBARB, VALPROATE, CBMZ No components found for: TOPIRA @RESULTINGLABINFO@ No results found for: LEVETIRACETA, FERRITIN, CRP, AISHWARYA, ANCA No results found for: SINAN, IMMUNOGLOBUL, OLIGOBANDS No results found for: [id number], HEPCAB No results found for: CRP, ANATITER, ANCA FERRITIN: No results found for: FERRITIN ---- ECG 12 lead Sinus rhythm Borderline prolonged ME interval Electronically Signed On 10-01-2023 19:15:46 EST by Cat Matthewsshahanadeepti @[facility]@ IMPRESSION and PLAN: Problem List Items Addressed This Visit None Visit Diagnoses Obstructive sleep apnea - Primary Insomnia, unspecified type Cerebrovascular accident (CVA), unspecified mechanism (HCC) Left homonymous hemianopsia Hyperlipidemia, unspecified hyperlipidemia type Adjustments made to Inspire Device Amplitude to 1.1V Start delay to 75minutes Increase Remeron to 45mg nightly Continue Aspirin and Plavix daily [place] records reviewed Check Carotid study Check Echocardiogram Goal of LDL <70 He was given handout for foods to reduce Cholesterol No problem-specific Assessment & Plan notes found for this encounter. CAROLYNE Matson CNP I spent 45 minutes caring for this patient today, reviewing labs, records, seeing the patient, documenting in the record and arranging for studies. Electronically signed by @ELMER@ on @TDNR@ at @NOWNR@ documented in this [facility]11-05-2024 History of Present illness Narrative* CAROLYNE Huizar CNP - 06/20/2024 10:00 AM EST Visit type: Established Patient Reason for Visit: Follow-up and Sleep Apnea Assessment and Plan 1. Obstructive sleep apnea 2. Insomnia, unspecified type 3. Cerebrovascular accident (CVA), unspecified mechanism (HCC) 4. Left homonymous hemianopsia 5. Hyperlipidemia, unspecified hyperlipidemia type Subjective HPI: Hx of TARIK. Followed with Dr. Elias. Unable to tolerate masks Inspire Device inserted 10/07/[address] Steffen Layne tried for sleep- Trazodone, Mirtazapine, Amitriptyline, Lunesta, Seroquel, Ativan Device activated 11/30/23 Pt prefers to sleep on his side and stomach He states that Remeron 30mg was effective for sleep but is no longer effective While using gummies, he states his sleep was good On 04/19/24 he had cardiac stent placed On 04/20/24 he presented to [place] ER with confusion. He was trying to use the restroom and didn't know what to do. He had uncontrollable mvmts with his arm He states he is unable to recall a lot of the details He says while inpatient his bowels, bladder stopped working He had left side neglect and double vision Over the past 2 weeks he has had 90% improvement With prolonged sitting or lying down, after standing he will hear a whooshing sound He was getting frequent headaches Located right pentecostal Occasional dizziness No longer using a cane He had home care and was discharged. Suggested out pt therapy but he declined He had been taking low dose ASA and Plavix He states for stent placement he is to stay on Plavix times 1 yr He had a repeat CT yesterday Pt states his stroke was hemorrhagic Outside records- CT head showed 4.7cm right parietal intraparenchymal hemorrhage with extension into right lateral ventricle. Surrounding edema but no significant midline shift He was given 1 unit of plts Noted to be hypertensive upon admission Done 01/2024 A1c=6.1 ZNG=592 Carotids 03/2023 Bilateral 1-39% No Echo on file REVIEW OF SYSTEMS: Review of Systems Constitutional: Negative. HENT: Negative. Eyes: Positive for visual disturbance. Respiratory: Negative. Cardiovascular: Negative. Gastrointestinal: Negative. Endocrine: Negative. Genitourinary: Negative. Musculoskeletal: Negative. Skin: Negative. Allergic/Immunologic: Negative. Neurological: Positive for dizziness and headaches. Hematological: Negative. Psychiatric/Behavioral: Positive for sleep disturbance. Allergies Allergen Reactions Pollen Extract Other Seasonal allergies. Outpatient Medications Prior to Visit Medication Sig Dispense Refill ALPHA LIPOIC ACID PO Take by mouth every morning (before breakfast). Ascorbic Acid (vitamin C) 1000 MG tablet Take 1,000 mg by mouth every morning (before breakfast). aspirin 81 MG EC tablet Take 81 mg by mouth daily. atorvastatin (Lipitor) 40 MG tablet Take 40 mg by mouth. B Ufevsws-Nbnail-VQ (B COMPLEX 100 TR PO) Take by mouth every morning (before breakfast). cetirizine (ZyrTEC) 10 MG tablet Take by mouth every morning (before breakfast). cholecalciferol (Vitamin D-3) 125 MCG (5000 UT) capsule Take 5,000 Units by mouth daily. cloNIDine (Catapres) 0.1 MG tablet Take 0.1 mg by mouth Daily as needed. hydrALAZINE (Apresoline) 50 MG tablet 50 mg 2 times daily. irbesartan (Avapro) 75 MG tablet 75 mg. Magnesium Ascorbate powder every morning (before breakfast). metoprolol succinate XL (Toprol-XL) 50 MG 24 hr tablet 50 mg in the morning and 50 mg in the evening. nitroglycerin (Nitrostat) 0.[address] 0.4 mg under the tongue every 5 minutes as needed. Plavix 75 MG tablet Take 75 mg by mouth daily. Probiotic Product (PROBIOTIC BLEND PO) Take by mouth every morning (before breakfast). psyllium (Metamucil) 0.36 g capsule daily. Quviviq 25 MG tablet Take 1 tablet by mouth daily. tamsulosin (Flomax) 0.4 MG 24 hr capsule Take 0.4 mg by mouth daily. Vitamin E 100 units tablet Take by mouth every morning (before breakfast). zinc gluconate 50 MG tablet Take 100 mg by mouth daily. mirtazapine (Remeron) 30 MG tablet Take 1 tablet (30 mg) by mouth Nightly. 30 tablet 2 No facility-administered medications prior to visit. Past Medical History: Diagnosis Date Anxiety not any more Arthritis Asthma Brain concussion numerous; skull fracture w/subdural hematoma 1976 Cluster headache occasionally, not frequent Colon polyp CTS (carpal tunnel syndrome) 20 years--surgery 03/06 Depression in the past Head injury 1967 Hyperlipidemia Hypertension Insomnia adulthood Irritable bowel syndrome Numbness left thigh, right foot/toe Restless leg syndrome years Sleep apnea 20-30 years DO NOT WEAR CPAP Syncope only when I cough Social History Tobacco Use Smoking status: Never Smokeless tobacco: Never Substance Use Topics Alcohol use: Yes Alcohol/week: 1.0 - 2.0 standard drink of alcohol Types: 1 - 2 Cans of beer per week Comment: Very occasional; go weeks and sometimes months without Past Surgical History: Procedure Laterality Date BICEPS TENDON REPAIR Left CARPAL TUNNEL RELEASE Right COLONOSCOPY ELBOW SURGERY HERNIA REPAIR Bilateral inguinal KNEE ARTHROSCOPY W/ MENISCECTOMY Bilateral ROSA FUNDOPLICATION OTHER SURGICAL HISTORY N/A 02/11/2023 Evaluation of sleep-disordered breathing exam - Dr. Bourne, [facility] SHOULDER ARTHROSCOPY Left TEARS SURGICAL IMPLANT (HISTORICAL) 10/07/2023 INSPIRE - hypoglossal nerve neurostimulator and generator and breathing snesor implant - DR BOURNE TONSILLECTOMY AND ADENOIDECTOMY (HISTORICAL) UPPER GASTROINTESTINAL ENDOSCOPY No family history on file. Objective Vitals: BP (!) 144/83 (BP Location: Right arm, Patient Position: Sitting, BP Cuff Size: Adult) Pulse 68 Ht 5' 5.5 (1.664 m) Wt 205 lb 3.2 oz (93.1 kg) BMI 33.63 kg/m General Appearance: Patient is in no apparent distress. Head is normocephalic, atraumatic Cardiovascular: Regular rate and rhythm. No heart murmurs. No carotid bruit Neurologic: Mentation: Alert and oriented x 3 to person, place and time. Speech and Language: Speech and language normal Concentration and Attention: Concentration normal Memory: Memory normal Fund of Knowledge: Fund of knowledge normal Cranial Nerves: II, III, IV, V, , VII, VIII, IX, X, XI, XII examined and were intact. Left homonymous hemianopsia Motor: Strength: Strength 5 out of 5 with normal tone Alternating Movements: Normal Cogwheel Rigidity: None Tone: Tone is normal Tremor / Involuntary Movements: None Deep Tendon Reflexes: 1 out of 4 symmetrical in all four limbs. Sensory: Normal sensation upper and lower extremities Coordination: Normal coordination upper and lower extremities Gait and Station: Station is normal. Gait is normal Data Reviewed and Summarized DIAGNOSTIC TESTING CBC: No results found for: WBC, RBC, HGB, HCT, MCV, MCH, MCHC, RDW, PLT, MPV CMP: No results found for: NA, K, CL, CO2, BUN, CREATININE, AGRATIO, LABGLOM, GLUCOSE, GLU, PROT, CALCIUM, BILITOT, ALKPHOS, AST, ALT BMP: No results found for: NA, K, CL, CO2, BUN, CREATININE, CALCIUM, LABGLOM, GLUCOSE, GLU PT/INR: No results found for: PROTIME, INR PTT: No results found for: APTT, PTT[APTT} FLP: No results found for: CHLPL, TRIG, HDL, LDLCALC, LDLDIRECT TSH: No results found for: TSH VITAMIN B12: No results found for: [id number] No results found for: PHENYTOIN, PHENOBARB, VALPROATE, CBMZ No components found for: TOPIRA @RESULTINGLABINFO@ No results found for: LEVETIRACETA, FERRITIN, CRP, AISHWARYA, ANCA No results found for: SINAN, IMMUNOGLOBUL, OLIGOBANDS No results found for: [id number], HEPCAB No results found for: CRP, ANATITER, ANCA FERRITIN: No results found for: FERRITIN ---- ECG 12 lead Sinus rhythm Borderline prolonged ME interval Electronically Signed On 10-01-2023 19:15:46 EST by Cat Bennett @[email or web address]@ IMPRESSION and PLAN: Problem List Items Addressed This Visit None Visit Diagnoses Obstructive sleep apnea - Primary Insomnia, unspecified type Cerebrovascular accident (CVA), unspecified mechanism (HCC) Left homonymous hemianopsia Hyperlipidemia, unspecified hyperlipidemia type Adjustments made to Inspire Device Amplitude to 1.1V Start delay to 75minutes Increase Remeron to 45mg nightly Continue Aspirin and Plavix daily [facility] records reviewed Check Carotid study Check Echocardiogram Goal of LDL <70 He was given handout for foods to reduce Cholesterol No problem-specific Assessment & Plan notes found for this encounter. CAROLYNE Matson CNP I spent 45 minutes caring for this patient today, reviewing labs, records, seeing the patient, documenting in the record and arranging for studies. Electronically signed by @ELMER@ on @TDNR@ at @NOWNR@ documented in [facility]11-05-2024 Miscellaneous Notes* Addendum Note - CAROLYNE Huizar CNP - 06/20/2024 10:00 AM ESTAddended by: BONNY AYALA on: 06/20/2024 02:14 PM Modules accepted: Orders documented in [facility]11-05-2024 Note* Addendum Note - CAROLYNE Huizar CNP - 06/20/2024 10:00 AM ESTAddended by: BONNY AYALA on: 06/20/2024 02:14 PM Modules accepted: Orders [place] [id number] Note* Addendum Note - CAROLYNE Huizar CNP - 06/20/2024 10:00 AM ESTAddended by: BONNY AYALA on: 06/20/2024 02:14 PM Modules accepted: Orders [place] [id number] Note* Addendum Note - CAROLYNE Huizar CNP - 06/20/2024 10:00 AM ESTAddended by: BONNY AYALA on: 06/20/2024 02:14 PM Modules accepted: Orders [place] [id number] Note* Addendum Note - CAROLYNE Huizar CNP - 06/20/2024 10:00 AM ESTAddended by: BONNY AYALA on: 06/20/2024 02:14 PM Modules accepted: Orders [facility]11-05-2024 Note* Addendum Note - CAROLYNE Huizar CNP - 06/20/2024 10:00 AM ESTAddended by: BONNY AYALA on: 06/20/2024 02:14 PM Modules accepted: Orders [facility]10-11-2024 History of Present illness Narrative* CAROLYNE Huizar CNP - 05/26/2024 10:30 AM EDT Visit type: Established Patient Reason for Visit: Follow-up (inspire) Assessment and Plan 1. Obstructive sleep apnea Subjective HPI: Hx of TARIK. Followed with Dr. Elias. Unable to tolerate masks Inspire Device inserted 10/07/[address] Steffen Layne tried for sleep- Trazodone, Mirtazapine, Amitriptyline, Lunesta, Seroquel, Ativan Device activated 11/30/23 04/19/2024 he had a cardiac stent placed 04/20/2024 he was treated at [place] for a stroke He says the Inspire Device stopped working shortly after his last visit here He then states he bought a new lamp with a charging station Therapy duration changed from 7-9 hrs REVIEW OF SYSTEMS: Review of Systems Constitutional: Negative. HENT: Negative. Eyes: Positive for visual disturbance. Respiratory: Negative. Cardiovascular: Negative. Gastrointestinal: Negative. Endocrine: Negative. Genitourinary: Negative. Musculoskeletal: Negative. Skin: Negative. Allergic/Immunologic: Negative. Neurological: Negative. Hematological: Negative. Psychiatric/Behavioral: Positive for sleep disturbance. Allergies Allergen Reactions Pollen Extract Other Seasonal allergies. Outpatient Medications Prior to Visit Medication Sig Dispense Refill ALPHA LIPOIC ACID PO Take by mouth every morning (before breakfast). Ascorbic Acid (vitamin C) 1000 MG tablet Take 1,000 mg by mouth every morning (before breakfast). aspirin 81 MG EC tablet Take 81 mg by mouth daily. atorvastatin (Lipitor) 40 MG tablet Take 40 mg by mouth. B Kmbjutz-Ankcgl-YU (B COMPLEX 100 TR PO) Take by mouth every morning (before breakfast). cholecalciferol (Vitamin D-3) 125 MCG (5000 UT) capsule Take 5,000 Units by mouth daily. cloNIDine (Catapres) 0.1 MG tablet Take 0.1 mg by mouth Daily as needed. hydrALAZINE (Apresoline) 50 MG tablet 50 mg 2 times daily. Magnesium Ascorbate powder every morning (before breakfast). metoprolol succinate XL (Toprol-XL) 50 MG 24 hr tablet 50 mg in the morning and 50 mg in the evening. mirtazapine (Remeron) 30 MG tablet Take 1 tablet (30 mg) by mouth Nightly. 30 tablet 2 nitroglycerin (Nitrostat) 0.[address] 0.4 mg under the tongue every 5 minutes as needed. Plavix 75 MG tablet Take 75 mg by mouth daily. Probiotic Product (PROBIOTIC BLEND PO) Take by mouth every morning (before breakfast). psyllium (Metamucil) 0.36 g capsule daily. Quviviq 25 MG tablet Take 1 tablet by mouth daily. tamsulosin (Flomax) 0.4 MG 24 hr capsule Take 0.4 mg by mouth daily. cetirizine (ZyrTEC) 10 MG tablet Take by mouth every morning (before breakfast). irbesartan (Avapro) 75 MG tablet 75 mg. Vitamin E 100 units tablet Take by mouth every morning (before breakfast). zinc gluconate 50 MG tablet Take 100 mg by mouth daily. No facility-administered medications prior to visit. Past Medical History: Diagnosis Date Anxiety not any more Arthritis Asthma Brain concussion numerous; skull fracture w/subdural hematoma 1976 Cluster headache occasionally, not frequent Colon polyp CTS (carpal tunnel syndrome) 20 years--surgery 03/06 Depression in the past Head injury 1967 Hyperlipidemia Hypertension Insomnia adulthood Irritable bowel syndrome Numbness left thigh, right foot/toe Restless leg syndrome years Sleep apnea 20-30 years DO NOT WEAR CPAP Syncope only when I cough Social History Tobacco Use Smoking status: Never Smokeless tobacco: Never Substance Use Topics Alcohol use: Yes Alcohol/week: 1.0 - 2.0 standard drink of alcohol Types: 1 - 2 Cans of beer per week Comment: Very occasional; go weeks and sometimes months without Past Surgical History: Procedure Laterality Date BICEPS TENDON REPAIR Left CARPAL TUNNEL RELEASE Right COLONOSCOPY ELBOW SURGERY HERNIA REPAIR Bilateral inguinal KNEE ARTHROSCOPY W/ MENISCECTOMY Bilateral ROSA FUNDOPLICATION OTHER SURGICAL HISTORY N/A 02/11/2023 Evaluation of sleep-disordered breathing exam - Dr. Bourne, [facility] SHOULDER ARTHROSCOPY Left TEARS SURGICAL IMPLANT (HISTORICAL) 10/07/2023 INSPIRE - hypoglossal nerve neurostimulator and generator and breathing snesor implant - DR BOURNE TONSILLECTOMY AND ADENOIDECTOMY (HISTORICAL) UPPER GASTROINTESTINAL ENDOSCOPY No family history on file. Objective Vitals: BP (!) 143/79 (BP Location: Left arm, Patient Position: Sitting, BP Cuff Size: Adult) Pulse 85 Ht 5' 5.5 (1.664 m) Wt 194 lb (88 kg) BMI 31.79 kg/m General Appearance: Patient is in no apparent distress. Head is normocephalic, atraumatic Cardiovascular: Regular rate and rhythm. No heart murmurs. No carotid bruit Neurologic: Mentation: Alert and oriented x 3 to person, place and time. Speech and Language: Speech and language normal Concentration and Attention: Concentration normal Memory: Memory normal Fund of Knowledge: Fund of knowledge normal Alternating Movements: Normal Cogwheel Rigidity: None Tone: Tone is normal Tremor / Involuntary Movements: None Deep Tendon Reflexes: 1 out of 4 symmetrical in all four limbs. Sensory: Normal sensation upper and lower extremities Coordination: Normal coordination upper and lower extremities Gait and Station: use of rollator Data Reviewed and Summarized DIAGNOSTIC TESTING CBC: No results found for: WBC, RBC, HGB, HCT, MCV, MCH, MCHC, RDW, PLT, MPV CMP: No results found for: NA, K, CL, CO2, BUN, CREATININE, AGRATIO, LABGLOM, GLUCOSE, GLU, PROT, CALCIUM, BILITOT, ALKPHOS, AST, ALT BMP: No results found for: NA, K, CL, CO2, BUN, CREATININE, CALCIUM, LABGLOM, GLUCOSE, GLU PT/INR: No results found for: PROTIME, INR PTT: No results found for: APTT, PTT[APTT} FLP: No results found for: CHLPL, TRIG, HDL, LDLCALC, LDLDIRECT TSH: No results found for: TSH VITAMIN B12: No results found for: [id number] No results found for: PHENYTOIN, PHENOBARB, VALPROATE, CBMZ No components found for: TOPIRA @RESULTINGLABINFO@ No results found for: LEVETIRACETA, FERRITIN, CRP, AISHWARYA, ANCA No results found for: SINAN, IMMUNOGLOBUL, OLIGOBANDS No results found for: [id number], HEPCAB No results found for: CRP, ANATITER, ANCA FERRITIN: No results found for: FERRITIN ---- ECG 12 lead Sinus rhythm Borderline prolonged ME interval Electronically Signed On 10-01-2023 19:15:46 EST by Cat Donald @[facility]THISPRO@ IMPRESSION and PLAN: Problem List Items Addressed This Visit None Visit Diagnoses Obstructive sleep apnea - Primary He is to resume use of Inspire Device Will need hospital follow up for stroke-treated at [place] No problem-specific Assessment & Plan notes found for this encounter. CAROLYNE Matson CNP I spent 30 minutes caring for this patient today, reviewing labs, records, seeing the patient, documenting in the record and arranging for studies. Electronically signed by @ELMER@ on @TDNR@ at @NOWNR@ documented in this [facility]10-01-2024 Note ORIGINAL HISTORY: Hemorrhage COMPARISON: 25 April 2024 TECHNIQUE: Routine noncontrast head CT, with sagittal and coronal reconstructions. This exam was performed according to our departmental dose optimization program, and includes the following measures where applicable: automated exposure control, adjustment of the mAs and/or kVp according to patient size and/or exam, and an iterative reconstruction algorithm. FINDINGS: There is a somewhat ill-defined right parietal hematoma, about 3.7 cm in maximum diameter. There is mild mass effect, with distortion of the ventricular atrium and narrowing of right posterior sulci. There is no significant midline shift. There is mild irregular decreased attenuation in the cerebral white matter; osorio-white matter differentiation outside the lesion is maintained. The calvaria and the bones of the base of the skull are intact. IMPRESSION: Interval evolution and decrease in right hematoma. Interpreted by: Lety Posadas MD Preliminary Report By: Lety Posadas MD Electronically signed By Lety Posadas MD Dictated Date: 05/16/2024 8:50:55 AM Prelim Date: 05/16/2024 8:52:41 AM Sign Date: 05/16/2024 8:52:41 AM Ordering Provider: [facility]09-12-2024 Note Discharge Instructions Thank you for allowing [facility] to assist you with your healthcare needs. The following is importantdischarge information regarding your hospital visit. Your Care Team REGIS PHILLIPS DO Your Diagnosis Essential hypertension Intraparenchymal hemorrhage of brain Mixed hyperlipidemia Muscle spasm Severe headache What to do next Instructions From Your Doctor NO driving until cleared by Neurosurgery. Scheduled Follow-Up Appointments Appointment Type When With Where Contact Information StatusPC OV 05/05/2024 12:30 PM EDT REGIS PHILLIPS DO [facility] [address] [place] [id number] Head or Brain w/o Contrast 05/08/2024 08:30 AM EDT Radiology [phone] Confirmed NS OV 05/08/2024 09:15 AM EDT DAVID RYDER MD Neurosurgery [address] [phone] Confirmed CV OV 05/16/2024 10:00 AM EDT [facility]A [facility] [employer] CVC Confirmed Follow Up Appointments Follow Up with VILMA DE LEÓN MD When:Within 5 to 7 days Where:[address] [place] [address] [phone] Additional Information: Please call to schedule an appointment with the gi physician. Follow Up with [facility], Skilled, When:Within 1-2 days Follow Up with REGIS PHILLIPS When:Within 1-2 days Where:[address] [place] [phone] Business (1) The Following Activity and Diet Have Been Ordered for You Discharge Driving Restrictions - Ordered -- No driving permitted, Must be evaluated by ophthalmology., 04/27/24 7:07:00 EDT Transfer of Care Activity - Ordered -- Activity As Tolerated, 04/27/24 7:07:00 EDT Transfer of Care Activity - Ordered -- Lifting Restricted less than 10 pounds, Avoid strenuous activity., 04/27/24 7:07:00 EDT Transfer of Care Diet - Ordered -- Type of Diet: Regular Diet, 04/27/24 7:07:00 EDT The Following Equipment Has Been Ordered for You No qualifying data available. The Following Treatments Have Been Ordered for You Discharge Labs No qualifying data available. Discharge Radiology Transfer of Care Radiology - Ordered -- CT head without contrast, Intraparenchymal hemorrhage, Results Notify to: DAVID RYDER MD, Scheduled on 05/08/2024 at 8:[address] [facility]. This test will be completed in the radiology department which is located on the ground floor. After yo... Other Therapies Transfer of Care OT - Ordered -- Reason for therapy: To restore functional independence, 04/27/24 7:07:00 EDT Transfer of Care PT - Ordered -- Reason for therapy: To restore functional independence, 04/27/24 7:07:00 EDT Post Acute Orders Transfer of Care Admission Level of Care - Ordered -- Level of Care Acute Rehab, 04/27/24 7:08:05 EDT Transfer of Care Code Status - Ordered -- Full Code, Constant Order Transfer of Care Communication Order - Ordered -- Expect less than 30 day stay., 04/27/24 7:08:05 EDT Transfer of Care Communication Order - Ordered -- Patient had recent cardiac stent placed to proximal LAD on 04/19/2024. Restarted on Plavix on 04/24/2024. Will need clearance by Dr. Ryder of neurosurgery prior to starting 81mg aspirin., 04/27/24 7:08:05 EDT Transfer of Care Orders Electronically Signed By - Ordered -- 04/27/24 7:07:00 EDT, DAVID RYDER MD Transfer of Care Prognosis - Ordered -- Good, Patient Aware: Yes Transfer of Care Rehab Potential - Ordered -- Rehab potential good, 04/27/24 7:08:05 EDT Someone Will Contact You Regarding These Home Health Referrals No home referrals have been ordered for you. No one will call you. Allergies NKA Medications Please ask your primary doctor or pharmacist before taking any other medication not listed, including over the counter drugs, herbal medications, vitamins and or supplements as they may interact withyour home medications. What How Much When Why Instructions Last Dose New acetaminophen (acetaminophen 325 mg oral tablet) 2 tab(s) by mouth Four (4) times a day as needed for Pain, scale 1-3 New acetaminophen (Tylenol) 1,000 Milligram by mouth Every 6 hours as needed for Pain, scale 1-3 New acetaminophen-hydrocodone (Victor 325- 5 mg oral tablet) 1-2 tab(s) by mouth Every 6 hours as needed for as needed for pain Severe headache Intraparenchymal hemorrhage of brain Duration: 5 Days Take 1 tablet for pain level 4-6 or take 2 tablets for pain level 7-10. Do not exceed 6 tablets/ day. Printed Prescription New clopidogrel (Plavix 75 mg oral tablet) 1 tab(s) by mouth Once a day New diazePAM (Valium 5 mg oral tablet) 1 tab(s) by mouth Three (3) times a day as needed for Muscle spasm Muscle spasm Duration: 5 Days Printed Prescription New docusate (Colace 100 mg oral capsule) 1 cap by mouth Two (2) times a day as needed for Constipation New hydroCHLOROthiazide (hydroCHLOROthiazide 25 mg oral tablet) 1 tab(s) by mouth Once a day New losartan (Cozaar 50 mg oral tablet) 1 tab(s) by mouth Once a day Essential hypertension Mixed hyperlipidemia New pantoprazole (pantoprazole 20 mg oral enteric coated tablet) 1 tab(s) by mouth Once a day before a meal Changed metoprolol (metoprolol succinate 25 mg oral TABLET extended release) 1 tab(s) by mouth Once a day with a meal Unchanged alpha-lipoic acid (Alpha Lipoic 100 mg oral tablet) by mouth Two (2) times a day Unchanged ascorbic acid (Vitamin C 25 mg oral tablet, chewable) 1 tab(s) Chewed Once a day Unchanged atorvastatin (atorvastatin 40 mg oral tablet) 1 tab(s) by mouth Once a day Unchanged cetirizine (Zyrtec 10 mg oral tablet) 1 tab(s) by mouth Once a day Chest congestion Post-nasal drip Unchanged cholecalciferol (Vitamin D3) 50 Microgram by mouth Every day Unchanged mirtazapine (mirtazapine 30 mg oral tablet) TAKE ONE TABLET BY MOUTH NIGHTLY Unchanged nitroGLYcerin (nitroglycerin 0.4 mg sublingual tablet) 1 tab(s) under the tongue Every 5 minutes as needed for for chest pain If chest pain not relieved in 5 minutes after first dose, seek immediate medical attention What How Much When Why Comments Stop Taking aspirin (aspirin 81 mg oral delayed release tablet) 1 tab(s) by mouth Every day Stop Taking cloNIDine (cloNIDine 0.1 mg oral tablet) 1 tab(s) by mouth Three (3) times a day Preventative health care Colon cancer screening Take for BP > 150 systolic or > 90 diastolic, or 30-60 min before stressful events Stop Taking cyanocobalamin (Vitamin B12 50 mcg oral tablet) 1 tab(s) by mouth Once a day Stop Taking herbal/ nutritional product (garlic oral capsule) Stop Taking herbal/ nutritional product (Quercitin) Stop Taking irbesartan (irbesartan 75 mg oral tablet) 1 tab(s) by mouth Once a day Essential hypertension Mixed hyperlipidemia If BP remains elevated greater than 140 systolic, 90 diastolic increase to 150 mg once daily Stop Taking nutritional supplement Cayenne Stop Taking nutritional supplement Stop Taking omega-3 polyunsaturated fatty acids (Fish Oil 1000 mg oral capsule) by mouth Stop Taking omeprazole (omeprazole 20 mg oral delayed release capsule) 1 cap by mouth Once a day Essential hypertension Mixed hyperlipidemia Take daily after dinner, monitor chest/ congestion symptoms laying down Stop Taking prasugrel (Effient 10 mg oral tablet) 1 tab(s) by mouth Every day Stop Taking psyllium (Metamucil) by mouth takes with magnesium Stop Taking vitamin E (vitamin E 100 intl units oral capsule) 1 cap by mouth Every day Stop Taking zinc acetate (zinc (as acetate) 50 mg oral capsule) 1 cap by mouth Three (3) times a day Please take this list to your next doctor s visit. Bring all medications you take, including over the counter medications, herbals and other supplements with you to your doctor s visit. Patients and families are reminded to discard old lists and to update any records with all medication providers or retail pharmacies. Education Materials Subdural Hematoma A subdural hematoma is a collection of blood between the brain and its outer covering (dura). As the amount of blood increases, pressure builds on the brain. There are two types of subdural hematomas: Acute. This type develops shortly after a hard, direct hit to the head and causes blood to collect very quickly. This is a medical emergency. If it is not diagnosed and treated quickly, it can lead to severe brain injury or . Chronic. This is when bleeding develops more slowly, over weeks or months. In some cases, this typedoes not cause symptoms. What are the causes? This condition is caused by bleeding (hemorrhage) from a broken (ruptured) blood vessel. In most cases, a blood vessel ruptures and bleeds because of a head injury, such as from a hard, direct hit. Head injuries can happen in car accidents, falls, assaults, or while playing sports. In rare cases, a hemorrhage can happen without a known cause (spontaneously), especially if you take blood thinners (anticoagulants). What increases the risk? This condition is more likely to develop in: Older people. Infants. People who take blood thinners. People who have head injuries. People who abuse alcohol. What are the signs or symptoms? Symptoms of this condition can vary depending on the size of the hematoma. Symptoms can be mild, severe, or life-threatening. They include: Headaches. Nausea or vomiting. Changes in vision, such as double vision or loss of vision. Changes in speech or trouble understanding what people say. Loss of balance or trouble walking. Weakness, numbness, or tingling in the arms or legs, especially on one side of the body. Seizures. Change in personality. Increased sleepiness. Memory loss. Loss of consciousness. Coma. Symptoms of acute subdural hematoma can develop over minutes or hours. Symptoms of chronic subduralhematoma may develop over weeks or months. How is this diagnosed? This condition is diagnosed based on the results of: A physical exam. Tests of strength, reflexes, coordination, senses, manner of walking (gait), and facial and eye movements (neurological exam). Imaging tests, such as an MRI or a CT scan. How is this treated? Treatment for this condition depends on the type of hematoma and how severe it is. Treatment for acute hematoma may include: Emergency surgery to drain blood or remove a blood clot. Medicines that help the body get rid of excess fluids (diuretics). These may help to reduce pressure in the brain. Assisted breathing (ventilation). Treatment for chronic hematoma may include: Observation and bed rest at the hospital. Surgery. If you take blood thinners, you may need to stop taking them for a short time. You may also be given anti-seizure (anticonvulsant) medicine. Sometimes, no treatment is needed for chronic subdural hematoma. Follow these instructions at home: Activity Avoid situations where you could injure your head again, such as in competitive sports, downhill snow sports, and horseback riding. Do not do these activities until your health care provider approves. ? Wear protective gear, such as a helmet, when participating in activities such as biking or contact sports. Avoid too much visual stimulation while recovering. This means limiting how much you read and limiting your screen time on a smart phone, tablet, computer, or TV. Rest as told by your health care provider. Rest helps the brain heal. Try to avoid activities that cause physical or mental stress. Return to work or school as told by your health care provider. Do not lift anything that is heavier than 5 lb (2.3 kg), or the limit you are told, until your health care provider says that it is safe. Do not drive, ride a bike, or use heavy machinery until your health care provider approves. Always wear your seat belt when you are in a motor vehicle. Alcohol use Do not drink alcohol if your health care provider tells you not to drink. If you drink alcohol, limit how much you use to: ? 0 1 drink a day for women. ? 0 2 drinks a day for men. General instructions Monitor your symptoms, and ask people around you to do the same. Recovery from brain injuries varies. Talk with your health care provider about what to expect. Take cbud-zse-cqyrkhk and prescription medicines only as told by your health care provider. Do not take blood thinners or NSAIDs unless your health care provider approves. These include aspirin, ibuprofen, naproxen, and warfarin. Keep your home environment safe to reduce the risk of falling. Keep all follow-up visits as told by your health care provider. This is important. Where to find more information National [place] of Neurological Disorders and Stroke: www.ninds.nih.gov [place] [employer] of Neurology (AAN): www.aan.com Brain Injury Association of [place]: www.biausa.org Get help right away if you: Are taking blood thinners and you fall or you experience minor trauma to the head. If you take any blood thinners, even a very small injury can cause a subdural hematoma. Have a bleeding disorder and you fall or you experience minor trauma to the head. Develop any of the following symptoms after a head injury: ? Clear fluid draining from your nose or ears. ? Nausea or vomiting. ? Changes in speech or trouble understanding what people say. ? Seizures. ? Drowsiness or a decrease in alertness. ? Double vision. ? Numbness or inability to move (paralysis) in any part of your body. ? Difficulty walking or poor coordination. ? Difficulty thinking. ? Confusion or forgetfulness. ? Personality changes. ? Irrational or aggressive behavior. These symptoms may represent a serious problem that is an emergency. Do not wait to see if the symptoms will go away. Get medical help right away. Call your local emergency services (911 in the [place] Do not drive yourself to the hospital. Summary A subdural hematoma is a collection of blood between the brain and its outer covering (dura). Treatment for this condition depends on what type of subdural hematoma you have and how severe it is. Symptoms can vary from mild to severe to life-threatening. Monitor your symptoms, and ask others around you to do the same. This information is not intended to replace advice given to you by your health care provider. Make sure you discuss any questions you have with your health care provider. Document Released: 06/19/2005 Document Revised: 07/03/2019 Document Reviewed: 07/03/2019 [employer] Patient Education 2020 [employer]. Additional Information VACCINATE! IT SAVES LIVES! Members of the community who have not yet received the COVID-19 vaccine and would like to receive it can visit one of [facility] vaccine clinics. There are many vaccine clinic locations within the [facility]. For locations and available times, please visit [email or web address].[place].gov/. It is important to note that some COVID mobile vaccine clinics are held outdoors and may be canceled in rainy or stormy conditions. To learn more about pediatric vaccinations (ages 5-11), we invite you to visit the [facility] webpage. [email or web address] learn more about the COVID-19 vaccine, we invite you to visit the CDC website for a list of frequently asked questions.https://www.cdc.gov/coronavirus/2019-ncov/vaccines/faq.html [facility] Patient Portal Access Instructions: Stay connected with your healthcare team and access your personal medical information anytime with the [facility] Patient Portal. Please follow the directions below to create your [facility] account: 1.Access the email account you provided upon registration to the hospital/physician office.2.Look for an invitation email from [facility].3.Open the email and access the invitation link: AcceptInvitation to [place] [facility].4.Fill in the required becerra to create your account. To access your account, visit [email or web address]. Click the blue button labeled Access Patient Portal and then log in with the username and password that you created in the steps above. You will be able to view your test results, lab results, a summary of your visits, upcoming appointments and more. There is also a convenient messaging option where you can send secure messages to your p rovider. In addition, you will have the ability to download any documents or summaries to your computer and/or send the information securely to a physician. Remember that your healthcare information is confidential, so carefully consider who you will allowto register on the [facility] Patient Portal for access to your information. You can also access the [facility] Patient Portal on the [place] shell. Simply click on Patient Portal and then log into your account. If you would like to receive a full copy of your medical records, please contact the [facility] Medical Records Department by calling [phone], Wednesday through Wednesday between 8 a.m. and 4:30 p.m. HOW TO SAFELY DISPOSE OF PRESCRIPTION MEDICATIONS Please use one of the following methods to safely dispose of your unused medications. 1.Use a drug disposal kit: the drug disposal pouch allows you to safely discard your old and unuseddrugs. Ask your nurse to give you one when you are discharged.2.Visit a local take-back location: Many local pharmacies and police departments have programs that collect old and unwanted prescriptiondrugs. Call your local pharmacy or go to http://bit.ly/0C2To9y to find one close to you.3.Make use of household items: Use cat litter or old coffee grounds to dispose medications if other options arenot available. Mix your drugs with these household products, seal them in an airtight container andthrow it into the garbage. Call [facility]: [phone] to be sure your drugs can be disposed of in this way. Some medicines may require a different approach.4.Never flush your medications down the toilet. IF YOU HAVE BEEN PRESCRIBED AN OPIOID FOR PAIN If you have been prescribed an opioid (such as hydrocodone, oxycodone or morphine), it is critical to understand the possible side effects and risks of opioid pain medications. Even when taken as directed, opioids can have several side effects including: Tolerance, meaning you might need to take more of a medication for the same pain relief. Nausea, vomiting and/or constipation. Sleepiness, dizziness, dry mouth, confusion, depression or itching. Physical dependence, meaning you have withdrawal symptoms when a medication is stopped, can develop within a few days. KNOW YOUR RESPONSIBILITIES It is important to know exactly how much and how often to take the opioid pain medications you are prescribed. Never take opioids in higher amounts or more often than prescribed. Do not combine opioids with alcohol or other drugs that cause drowsiness, such as benzodiazepines, also known as benzos, including diazepam and alprazolam, muscle relaxants or sleep aids. Never sell or share prescription opioids. This is illegal. Store opioids in a secure place and out of reach of others (including children, family, friends and visitors). The last page of this document has been signed and retained as a CHART COPY. Signatures Patient Education Materials Subdural Hematoma Medication Leaflets My discharge plan and instructions have been reviewed and explained to me and IANA PAULA TIM D understand my current condition and have read and understand these discharge instructions. I have received a written copy of the plan/instructions. If I have questions, I am aware that I should contact my doctor. 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) Unspecified injury of left carotid artery, initial encounter (S15.002A - ICD-10-CM) Nontraumatic subarachnoid hemorrhage, unspecified (I60.9 - ICD-10-CM) Edema, unspecified (R60.9 - ICD-10-CM) Nontraumatic intracerebral hemorrhage in hemisphere, cortical (I61.1 - ICD-10-CM) Nontraumatic intracerebral hemorrhage, intraventricular (I61.5 - ICD-10-CM) Nontraumatic intracerebral hemorrhage, unspecified (I61.9 - ICD-10-CM) Atherosclerotic heart disease of [place] coronary artery without angina pectoris (I25.10 - ICD-10-CM) Major depressive disorder, single episode, unspecified (F32.9 - ICD-10-CM) Obstructive sleep apnea (adult) (pediatric) (G47.33 - ICD-10-CM) Gastro-esophageal reflux disease without esophagitis (K21.9 - ICD-10-CM) Fatty (change of) liver, not elsewhere classified (K76.0 - ICD-10-CM) Prediabetes (R73.03 - ICD-10-CM) Personal history of other diseases of the digestive system (Z87.19 - ICD-10-CM) Occlusion and stenosis of left carotid artery (I65.22 - ICD-10-CM) Hyperlipidemia, unspecified (E78.5 - ICD-10-CM) Surgical operation with anastomosis, bypass or graft as the cause of abnormal reaction of the patient, or of later complication, without mention of misadventure at the time of the procedure (Y83.2 - ICD-10-CM) Unspecified asthma, uncomplicated (J45.909 - ICD-10-CM) Nonalcoholic steatohepatitis (THORNE) (K75.81 - ICD-10-CM) Essential hypertension (I10 - ICD-10-CM) Intraparenchymal hemorrhage of brain (I61.9 - ICD-10-CM) Mixed hyperlipidemia (E78.2 - ICD-10-CM) Muscle spasm (M62.838 - ICD-10-CM) Severe headache (R51.9 - ICD-10-CM) Hospital Course This is a 68-year-old male who underwent a heart cath with stent placement to the proximal LAD on 04/19/[address] Casper. Patient then arrived at the [facility] ED on 04/20/2024 due to confusion and headache. He had a CT of the head which demonstrated a 4.7 right parietal intraparenchymal hemorrhage with extension into the right lateral ventricle. He was also noted to have surrounding edema but no significant midline shift. Due to these findings, patient was transferred to [facility]. The patient did receive aspirin 325 mg, 60 mg of Effient, and 14,000 units of heparin during the heart cath. He was also discharged on aspirin and Effient, but had not yet started the medications. Dr. Casper was updated regarding the patient's intracranial hemorrhage and that the antiplatelet medications will be placed on hold. DDAVP was not given to reverse the antiplatelet agents, due to the recent stent placement and the increased risk of acute stent thrombosis. 1 unit of platelets was given. He was noted to be hypertensive on admission and was started on Cardene drip. The Cardene was weaned off in less than 24 hours, and he has received hydralazine as needed to maintain systolic blood pressure less than 140. Antihypertensives have been adjusted. BP better controlled. Cardiology has followed patient closely. Patient was started on heparin by weight on 04/21/2024 with no bolus and goal APTT of 40 50. He has been closely monitored with repeat CAT scans. Patient started on Plavix 04/24/24. HBW stopped 3 hours after Plavix dose. Repeat CT head completed 24 hours after initiation of Plavix. It redemonstrated 4.4 cm right parietal lobe hemorrhage with mild associated mass effect; no significant interval change. PT/OT have evaluated the patient and recommending acute inpatient rehab at time of discharge given his left sided neglect/unsteady gait and balance deficit. Continues to struggle with depth perception and left homonymous hemianopsia. Plan at this time is for discharge to acute rehab at [facility] today. Patient seen lying horizontally in bed this morning. He is easily arousable. Oriented x 4 appropriately. Continues to endorse headache, similar in comparison to yesterday. He denies any acute vision changes, though does continue with a left-sided visual field deficit, as well as difficulty with depth perception. Provides that this is no different/unchanged since admission. Denies any lightheadedness/dizziness, acute paresthesias, nausea or vomiting. He has been tolerating p.o. intake without nausea or vomiting. He is voiding without difficulty. Nonew/acute changes today. Dr. Ryder has cleared the patient for discharge from the hospital. Patient and family are in agreement with this. A noncontrasted head CT has been arranged for the patient in 2 weeks with subsequent office visit. In addition, he is to follow-up with cardiology as scheduled. He will need follow-up with his gi physician in [place], and instructed to schedule this upon discharge from rehab facility. We did discuss red flag symptoms that would warrant evaluation prior. Advised to notify Dr. Ryder's office with any questions or concerns. Continue Plavix. Will discuss possible reinitiation of aspirin after follow-up head CT in 2 weeks. Allergies NKA Consults Consult to Physician - Ordered -- 04/20/24 11:57:00 EDTCONY NIHAD MD, Routine, Other, Please follow medically while in SICU Consult to Physician - Ordered -- 04/20/24 12:01:00 EDTROMANA MIHAIL MD, Routine, Patient known to you, LAD stent 04/19/24, now with [facility] Imaging Results and Diagnostics CT Head or Brain w/o Contrast Result Date: April 25, 2024 Verified By: LETY POSADAS MD CLINICAL STATEMENT: IMPRESSION: No significant interval change. CT Head or Brain w/o Contrast Result Date: April 24, 2024 Verified By: Naima_NATE eli CLINICAL STATEMENT: IMPRESSION: No significant change in the right parietal intraparenchymal hemorrhage without identification of new hemorrhage. CT Head or Brain w/o Contrast Result Date: April 23, 2024 Verified By: LUIS BEAULIEU MD CLINICAL STATEMENT: IMPRESSION: Intracranial hemorrhage is very similar to the previous exam including mild local mass effect. CT Head or Brain w/o Contrast Result Date: April 22, 2024 Verified By: DAVIN GAGNON MD CLINICAL STATEMENT: IMPRESSION: No significant interval change from previous exam. I have personally reviewed the images of this examination and agree with the resident's findings and interpretation. CT Head or Brain w/o Contrast Result Date: April 21, 2024 Verified By: HECTOR CELESTE MD CLINICAL STATEMENT: IMPRESSION: No significant change from prior exam. CT Head or Brain w/o Contrast Result Date: April 21, 2024 Verified By: DAVIN GAGNON MD CLINICAL STATEMENT: IMPRESSION: Similar appearing right parietal intraparenchymal hematoma with intraventricular extension and trace subarachnoid hemorrhage with effacement of the adjacent sulci. No midline shift. New trace left parietal subarachnoid hemorrhage. Laurence Don MD called these results to May Jaeger RN at 05:49 on04/21/2024. Preliminary Report was Dictated by a Resident Physical Exam Vitals and Measurements T: 37.2 C (Oral) TMIN: 36.6 C (Oral) TMAX: 37.2 C (Oral) HR: 84 (Apical) RR: 18 BP: 134/77 SpO2: 95% Weight Dosing Weight: 88.1 kg (04/20/24) General: Alert and oriented x3 HEENT: Atraumatic, normocephalic, pupils equal and reactive to light, struggles with depth perception and left homonymous hemianopsia Neck: Supple Cardiac: Heart regular rate and rhythm Respiratory: Lungs clear to auscultation A/P Abdomen: Soft, nontender, bowel sounds present x4 MS: MIX Vascular: Pedal pulses are normal bilaterally, no edema Neuro: He is moving all 4 extremities spontaneously though does continue with slightly weaker motorstrength in LUE and LLE. Sensation intact to light touch throughout. Skin: Warm, dry, intact Admission Date 04/20/2024 Discharge Date 04/27/2024 Patient Instructions NO driving until cleared by Neurosurgery. Additional details provided in postacute order set. Medications New Prescription acetaminophen (acetaminophen 325 mg oral tablet)2 tab(s) by mouth four (4) times a day as needed Pain, scale 1-3. Refills: 0. acetaminophen (Tylenol)1,000 Milligram by mouth every 6 hours as needed Pain, scale 1-3. acetaminophen-hydrocodone (Victor 325- 5 mg oral tablet)1-2 tab(s) by mouth every 6 hours as needed as needed for pain for 5 Days. Take 1 tablet for pain level 4-6 or take 2 tablets for pain level 7-10. Do not exceed 6 tablets/day.. Refills: 0. clopidogrel (Plavix 75 mg oral tablet)1 tab(s) by mouth once a day. diazePAM (Valium 5 mg oral tablet)1 tab(s) by mouth three (3) times a day as needed Muscle spasm for 5 Days. Refills: 0. docusate (Colace 100 mg oral capsule)1 cap by mouth two (2) times a day as needed Constipation. hydroCHLOROthiazide (hydroCHLOROthiazide 25 mg oral tablet)1 tab(s) by mouth once a day. losartan (Cozaar 50 mg oral tablet)1 tab(s) by mouth once a day. pantoprazole (pantoprazole 20 mg oral enteric coated tablet)1 tab(s) by mouth once a day before a meal. Changed metoprolol (metoprolol succinate 25 mg oral TABLET extended release)1 tab(s) by mouth once a day with a meal. Unchanged alpha-lipoic acid (Alpha Lipoic 100 mg oral tablet)by mouth two (2) times a day. ascorbic acid (Vitamin C 25 mg oral tablet, chewable)1 tab(s) Chewed once a day. atorvastatin (atorvastatin 40 mg oral tablet)1 tab(s) by mouth once a day. Refills: 0. cetirizine (Zyrtec 10 mg oral tablet)1 tab(s) by mouth once a day. Refills: 0. cholecalciferol (Vitamin D3)50 Microgram by mouth every day. mirtazapine (mirtazapine 30 mg oral tablet)TAKE ONE TABLET BY MOUTH NIGHTLY. nitroGLYcerin (nitroglycerin 0.4 mg sublingual tablet)1 tab(s) under the tongue every 5 minutes as needed for chest pain. If chest pain not relieved in 5 minutes after first dose, seek immediate medical attention. Refills: 0. Discontinued aspirin (aspirin 81 mg oral delayed release tablet)1 tab(s) by mouth every day. Refills: 11. cloNIDine (cloNIDine 0.1 mg oral tablet)1 tab(s) by mouth three (3) times a day. Take for BP > 150 systolic or > 90 diastolic, or 30-60 min before stressful events. Refills: 2. cyanocobalamin (Vitamin B12 50 mcg oral tablet)1 tab(s) by mouth once a day. herbal/nutritional product (garlic oral capsule) herbal/nutritional product (Quercitin) irbesartan (irbesartan 75 mg oral tablet)1 tab(s) by mouth once a day. If BP remains elevated greater than 140 systolic, 90 diastolic increase to 150 mg once daily. Refills: 1. nutritional supplementCayenne. nutritional supplement omega-3 polyunsaturated fatty acids (Fish Oil 1000 mg oral capsule)by mouth. omeprazole (omeprazole 20 mg oral delayed release capsule)1 cap by mouth once a day. Take daily after dinner, monitor chest/congestion symptoms laying down. Refills: 1. prasugrel (Effient 10 mg oral tablet)1 tab(s) by mouth every day. Refills: 11. psyllium (Metamucil)by mouth. takes with magnesium. vitamin E (vitamin E 100 intl units oral capsule)1 cap by mouth every day. zinc acetate (zinc (as acetate) 50 mg oral capsule)1 cap by mouth three (3) times a day. Follow Up Follow Up with VILMA DE LEÓN MD When:Within 5 to 7 days Where:[address] [place] [address] [phone] Additional Information: Please call to schedule an appointment with the gi physician. Follow Up with [facility], Skilled, When:Within 1-2 days Follow Up with REGIS PHILLIPS When:Within 1-2 days Where:[address] [place] [address] [phone] Business (1) Follow Up Appointments Transfer of Care OT - Ordered -- Reason for therapy: To restore functional independence, 04/27/24 7:07:00 EDT Transfer of Care PT - Ordered -- Reason for therapy: To restore functional independence, 04/27/24 7:07:00 EDT Follow Up Labs/Studies Discharge Studies Transfer of Care Radiology - Ordered -- CT head without contrast, Intraparenchymal hemorrhage, Results Notify to: DAVID RYDER MD, Scheduled on 05/08/2024 at 8:[address] [facility]. This test will be completed in the radiology department which is located on the ground floor. After yo... Discharge Diet Transfer of Care Diet - Ordered -- Type of Diet: Regular Diet, 04/27/24 7:07:00 EDT Discharge Activity Transfer of Care Activity - Ordered -- Activity As Tolerated, 04/27/24 7:07:00 EDT Transfer of Care Activity - Ordered -- Lifting Restricted less than 10 pounds, Avoid strenuous activity., 04/27/24 7:07:00 EDT Condition on Discharge Stable Discharge Disposition Acute Rehab Information Provided To Facility and patient Digitally Signed by PATRICIA WALTER on 04/27/2024 09:35 AM Digitally Signed by DAVID RYDER MD on 04/27/2024 02:[address] [id number] Discharge instructions Patient Education 04/27/2024 07:31:30 Subdural Hematoma Subdural Hematoma A subdural hematoma is a collection of blood between the brain and its outer covering (dura). As the amount of blood increases, pressure builds on the brain. There are two types of subdural hematomas: Acute. This type develops shortly after a hard, direct hit to the head and causes blood to collect very quickly. This is a medical emergency. If it is not diagnosed and treated quickly, it can lead to severe brain injury or . Chronic. This is when bleeding develops more slowly, over weeks or months. In some cases, this typedoes not cause symptoms. What are the causes? This condition is caused by bleeding (hemorrhage) from a broken (ruptured) blood vessel. In most cases, a blood vessel ruptures and bleeds because of a head injury, such as from a hard, direct hit. Head injuries can happen in car accidents, falls, assaults, or while playing sports. In rare cases, a hemorrhage can happen without a known cause (spontaneously), especially if you take blood thinners (anticoagulants). What increases the risk? This condition is more likely to develop in: Older people. Infants. People who take blood thinners. People who have head injuries. People who abuse alcohol. What are the signs or symptoms? Symptoms of this condition can vary depending on the size of the hematoma. Symptoms can be mild, severe, or life-threatening. They include: Headaches. Nausea or vomiting. Changes in vision, such as double vision or loss of vision. Changes in speech or trouble understanding what people say. Loss of balance or trouble walking. Weakness, numbness, or tingling in the arms or legs, especially on one side of the body. Seizures. Change in personality. Increased sleepiness. Memory loss. Loss of consciousness. Coma. Symptoms of acute subdural hematoma can develop over minutes or hours. Symptoms of chronic subduralhematoma may develop over weeks or months. How is this diagnosed? This condition is diagnosed based on the results of: A physical exam. Tests of strength, reflexes, coordination, senses, manner of walking (gait), and facial and eye movements (neurological exam). Imaging tests, such as an MRI or a CT scan. How is this treated? Treatment for this condition depends on the type of hematoma and how severe it is. Treatment for acute hematoma may include: Emergency surgery to drain blood or remove a blood clot. Medicines that help the body get rid of excess fluids (diuretics). These may help to reduce pressure in the brain. Assisted breathing (ventilation). Treatment for chronic hematoma may include: Observation and bed rest at the hospital. Surgery. If you take blood thinners, you may need to stop taking them for a short time. You may also be given anti-seizure (anticonvulsant) medicine. Sometimes, no treatment is needed for chronic subdural hematoma. Follow these instructions at home: Activity Avoid situations where you could injure your head again, such as in competitive sports, downhill snow sports, and horseback riding. Do not do these activities until your health care provider approves. ?Wear protective gear, such as a helmet, when participating in activities such as biking or contactsports. Avoid too much visual stimulation while recovering. This means limiting how much you read and limiting your screen time on a smart phone, tablet, computer, or TV. Rest as told by your health care provider. Rest helps the brain heal. Try to avoid activities that cause physical or mental stress. Return to work or school as told by your health care provider. Do not lift anything that is heavier than 5 lb (2.3 kg), or the limit you are told, until your health care provider says that it is safe. Do not drive, ride a bike, or use heavy machinery until your health care provider approves. Always wear your seat belt when you are in a motor vehicle. Alcohol use Do not drink alcohol if your health care provider tells you not to drink. If you drink alcohol, limit how much you use to: ?0 1 drink a day for women. ?0 2 drinks a day for men. General instructions Monitor your symptoms, and ask people around you to do the same. Recovery from brain injuries varies. Talk with your health care provider about what to expect. Take nlog-qbf-jifgqyh and prescription medicines only as told by your health care provider. Do not take blood thinners or NSAIDs unless your health care provider approves. These include aspirin, ibuprofen, naproxen, and warfarin. Keep your home environment safe to reduce the risk of falling. Keep all follow-up visits as told by your health care provider. This is important. Where to find more information [employer] [place] of Neurological Disorders and Stroke: www.ninds.nih.gov [place] Academy of Neurology (AAN): www.aan.com Brain Injury Association of [place]: www.biausa.org Get help right away if you: Are taking blood thinners and you fall or you experience minor trauma to the head. If you take any blood thinners, even a very small injury can cause a subdural hematoma. Have a bleeding disorder and you fall or you experience minor trauma to the head. Develop any of the following symptoms after a head injury: ?Clear fluid draining from your nose or ears. ?Nausea or vomiting. ?Changes in speech or trouble understanding what people say. ?Seizures. ?Drowsiness or a decrease in alertness. ?Double vision. ?Numbness or inability to move (paralysis) in any part of your body. ?Difficulty walking or poor coordination. ?Difficulty thinking. ?Confusion or forgetfulness. ?Personality changes. ?Irrational or aggressive behavior. These symptoms may represent a serious problem that is an emergency. Do not wait to see if the symptoms will go away. Get medical help right away. Call your local emergency services (911 in the [place] Do not drive yourself to the hospital. Summary A subdural hematoma is a collection of blood between the brain and its outer covering (dura). Treatment for this condition depends on what type of subdural hematoma you have and how severe it is. Symptoms can vary from mild to severe to life-threatening. Monitor your symptoms, and ask others around you to do the same. This information is not intended to replace advice given to you by your health care provider. Make sure you discuss any questions you have with your health care provider. Document Released: 06/19/2005 Document Revised: 07/03/2019 Document Reviewed: 07/03/2019 [employer] Patient Education 2020 [employer]. Follow Up Care 04/20/2024 09:01:55 With:VILMA DE LEÓN MD Address: [address] [place] [phone] When:5 to 7 days Comments:Please call to schedule an appointment with the gi physician. With:[facility], [facility], Address:Unknown When:1-2 days With:REGIS PHILLIPS Address: [address] [place] [phone] Business (1) When:1-[address] [facility] 09-12-2024 Note Discharge Instructions Thank you for allowing [facility] to assist you with your healthcare needs. The following is importantdischarge information regarding your hospital visit. Your Care Team REGIS PHILLIPS DO Your Diagnosis Essential hypertension Intraparenchymal hemorrhage of brain Mixed hyperlipidemia Muscle spasm Severe headache What to do next Instructions From Your Doctor NO driving until cleared by Neurosurgery. 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 Follow Up with [facility], [facility], When:Within 1-2 days Follow Up with REGIS PHILLIPS When:Within 1-2 days Where:[address] [place] [phone] Business (1) The Following Activity and Diet Have Been Ordered for You Discharge Driving Restrictions - Ordered -- No driving permitted, Must be evaluated by ophthalmology., 04/27/24 7:07:00 EDT Transfer of Care Activity - Ordered -- Activity As Tolerated, 04/27/24 7:07:00 EDT Transfer of Care Activity - Ordered -- Lifting Restricted less than 10 pounds, Avoid strenuous activity., 04/27/24 7:07:00 EDT Transfer of Care Diet - Ordered -- Type of Diet: Regular Diet, 04/27/24 7:07:00 EDT The Following Equipment Has Been Ordered for You No qualifying data available. The Following Treatments Have Been Ordered for You Discharge Labs No qualifying data available. Discharge Radiology Transfer of Care Radiology - Ordered -- CT head without contrast, Intraparenchymal hemorrhage, Results Notify to: DAVID RYDER MD, Scheduled on 05/08/2024 at 8:[address] [facility]. This test will be completed in the radiology department which is located on the ground floor. After yo... Other Therapies Transfer of Care OT - Ordered -- Reason for therapy: To restore functional independence, 04/27/24 7:07:00 EDT Transfer of Care PT - Ordered -- Reason for therapy: To restore functional independence, 04/27/24 7:07:00 EDT Post Acute Orders Transfer of Care Admission Level of Care - Ordered -- Level of Care Acute Rehab, 04/27/24 7:08:05 EDT Transfer of Care Code Status - Ordered -- Full Code, Constant Order Transfer of Care Communication Order - Ordered -- Expect less than 30 day stay., 04/27/24 7:08:05 EDT Transfer of Care Communication Order - Ordered -- Patient had recent cardiac stent placed to proximal LAD on 04/19/2024. Restarted on Plavix on 04/24/2024. Will need clearance by Dr. Ryder of neurosurgery prior to starting 81mg aspirin., 04/27/24 7:08:05 EDT Transfer of Care Orders Electronically Signed By - Ordered -- 04/27/24 7:07:00 EDT, DAVID RYDER MD Transfer of Care Prognosis - Ordered -- Good, Patient Aware: Yes Transfer of Care Rehab Potential - Ordered -- Rehab potential tristan, 04/27/24 7:08:05 EDT Someone Will Contact You Regarding These Home Health Referrals No home referrals have been ordered for you. No one will call you. Allergies NKA Medications Please ask your primary doctor or pharmacist before taking any other medication not listed, including over the counter drugs, herbal medications, vitamins and or supplements as they may interact withyour home medications. What How Much When Why Instructions Last Dose New acetaminophen (acetaminophen 325 mg oral tablet) 2 tab(s) by mouth Four (4) times a day as needed for Pain, scale 1-3 New acetaminophen (Tylenol) 1,000 Milligram by mouth Every 6 hours as needed for Pain, scale 1-3 New acetaminophen-hydrocodone (Victor 325- 5 mg oral tablet) 1-2 tab(s) by mouth Every 6 hours as needed for as needed for pain Severe headache Intraparenchymal hemorrhage of brain Duration: 5 Days Take 1 tablet for pain level 4-6 or take 2 tablets for pain level 7-10. Do not exceed 6 tablets/ day. Printed Prescription New clopidogrel (Plavix 75 mg oral tablet) 1 tab(s) by mouth Once a day New diazePAM (Valium 5 mg oral tablet) 1 tab(s) by mouth Three (3) times a day as needed for Muscle spasm Muscle spasm Duration: 5 Days Printed Prescription New docusate (Colace 100 mg oral capsule) 1 cap by mouth Two (2) times a day as needed for Constipation New hydroCHLOROthiazide (hydroCHLOROthiazide 25 mg oral tablet) 1 tab(s) by mouth Once a day New losartan (Cozaar 50 mg oral tablet) 1 tab(s) by mouth Once a day Essential hypertension Mixed hyperlipidemia New pantoprazole (pantoprazole 20 mg oral enteric coated tablet) 1 tab(s) by mouth Once a day before a meal Changed metoprolol (metoprolol succinate 25 mg oral TABLET extended release) 1 tab(s) by mouth Once a day with a meal Unchanged alpha-lipoic acid (Alpha Lipoic 100 mg oral tablet) by mouth Two (2) times a day Unchanged ascorbic acid (Vitamin C 25 mg oral tablet, chewable) 1 tab(s) Chewed Once a day Unchanged atorvastatin (atorvastatin 40 mg oral tablet) 1 tab(s) by mouth Once a day Unchanged cetirizine (Zyrtec 10 mg oral tablet) 1 tab(s) by mouth Once a day Chest congestion Post-nasal drip Unchanged cholecalciferol (Vitamin D3) 50 Microgram by mouth Every day Unchanged mirtazapine (mirtazapine 30 mg oral tablet) TAKE ONE TABLET BY MOUTH NIGHTLY Unchanged nitroGLYcerin (nitroglycerin 0.4 mg sublingual tablet) 1 tab(s) under the tongue Every 5 minutes as needed for for chest pain If chest pain not relieved in 5 minutes after first dose, seek immediate medical attention What How Much When Why Comments Stop Taking aspirin (aspirin 81 mg oral delayed release tablet) 1 tab(s) by mouth Every day Stop Taking cloNIDine (cloNIDine 0.1 mg oral tablet) 1 tab(s) by mouth Three (3) times a day Preventative health care Colon cancer screening Take for BP > 150 systolic or > 90 diastolic, or 30-60 min before stressful events Stop Taking cyanocobalamin (Vitamin B12 50 mcg oral tablet) 1 tab(s) by mouth Once a day Stop Taking herbal/ nutritional product (garlic oral capsule) Stop Taking herbal/ nutritional product (Quercitin) Stop Taking irbesartan (irbesartan 75 mg oral tablet) 1 tab(s) by mouth Once a day Essential hypertension Mixed hyperlipidemia If BP remains elevated greater than 140 systolic, 90 diastolic increase to 150 mg once daily Stop Taking nutritional supplement Ray Stop Taking nutritional supplement Stop Taking omega-3 polyunsaturated fatty acids (Fish Oil 1000 mg oral capsule) by mouth Stop Taking omeprazole (omeprazole 20 mg oral delayed release capsule) 1 cap by mouth Once a day Essential hypertension Mixed hyperlipidemia Take daily after dinner, monitor chest/ congestion symptoms laying down Stop Taking prasugrel (Effient 10 mg oral tablet) 1 tab(s) by mouth Every day Stop Taking psyllium (Metamucil) by mouth takes with magnesium Stop Taking vitamin E (vitamin E 100 intl units oral capsule) 1 cap by mouth Every day Stop Taking zinc acetate (zinc (as acetate) 50 mg oral capsule) 1 cap by mouth Three (3) times a day Please take this list to your next doctor s visit. Bring all medications you take, including over the counter medications, herbals and other supplements with you to your doctor s visit. Patients and families are reminded to discard old lists and to update any records with all medication providers or retail pharmacies. Education Materials Subdural Hematoma A subdural hematoma is a collection of blood between the brain and its outer covering (dura). As the amount of blood increases, pressure builds on the brain. There are two types of subdural hematomas: Acute. This type develops shortly after a hard, direct hit to the head and causes blood to collect very quickly. This is a medical emergency. If it is not diagnosed and treated quickly, it can lead to severe brain injury or . Chronic. This is when bleeding develops more slowly, over weeks or months. In some cases, this typedoes not cause symptoms. What are the causes? This condition is caused by bleeding (hemorrhage) from a broken (ruptured) blood vessel. In most cases, a blood vessel ruptures and bleeds because of a head injury, such as from a hard, direct hit. Head injuries can happen in car accidents, falls, assaults, or while playing sports. In rare cases, a hemorrhage can happen without a known cause (spontaneously), especially if you take blood thinners (anticoagulants). What increases the risk? This condition is more likely to develop in: Older people. Infants. People who take blood thinners. People who have head injuries. People who abuse alcohol. What are the signs or symptoms? Symptoms of this condition can vary depending on the size of the hematoma. Symptoms can be mild, severe, or life-threatening. They include: Headaches. Nausea or vomiting. Changes in vision, such as double vision or loss of vision. Changes in speech or trouble understanding what people say. Loss of balance or trouble walking. Weakness, numbness, or tingling in the arms or legs, especially on one side of the body. Seizures. Change in personality. Increased sleepiness. Memory loss. Loss of consciousness. Coma. Symptoms of acute subdural hematoma can develop over minutes or hours. Symptoms of chronic subduralhematoma may develop over weeks or months. How is this diagnosed? This condition is diagnosed based on the results of: A physical exam. Tests of strength, reflexes, coordination, senses, manner of walking (gait), and facial and eye movements (neurological exam). Imaging tests, such as an MRI or a CT scan. How is this treated? Treatment for this condition depends on the type of hematoma and how severe it is. Treatment for acute hematoma may include: Emergency surgery to drain blood or remove a blood clot. Medicines that help the body get rid of excess fluids (diuretics). These may help to reduce pressure in the brain. Assisted breathing (ventilation). Treatment for chronic hematoma may include: Observation and bed rest at the hospital. Surgery. If you take blood thinners, you may need to stop taking them for a short time. You may also be given anti-seizure (anticonvulsant) medicine. Sometimes, no treatment is needed for chronic subdural hematoma. Follow these instructions at home: Activity Avoid situations where you could injure your head again, such as in competitive sports, downhill snow sports, and horseback riding. Do not do these activities until your health care provider approves. ? Wear protective gear, such as a helmet, when participating in activities such as biking or contact sports. Avoid too much visual stimulation while recovering. This means limiting how much you read and limiting your screen time on a smart phone, tablet, computer, or TV. Rest as told by your health care provider. Rest helps the brain heal. Try to avoid activities that cause physical or mental stress. Return to work or school as told by your health care provider. Do not lift anything that is heavier than 5 lb (2.3 kg), or the limit you are told, until your health care provider says that it is safe. Do not drive, ride a bike, or use heavy machinery until your health care provider approves. Always wear your seat belt when you are in a motor vehicle. Alcohol use Do not drink alcohol if your health care provider tells you not to drink. If you drink alcohol, limit how much you use to: ? 0 1 drink a day for women. ? 0 2 drinks a day for men. General instructions Monitor your symptoms, and ask people around you to do the same. Recovery from brain injuries varies. Talk with your health care provider about what to expect. Take xzqe-ifx-rbkwfag and prescription medicines only as told by your health care provider. Do not take blood thinners or NSAIDs unless your health care provider approves. These include aspirin, ibuprofen, naproxen, and warfarin. Keep your home environment safe to reduce the risk of falling. Keep all follow-up visits as told by your health care provider. This is important. Where to find more information [place] of Neurological Disorders and Stroke: www.ninds.nih.gov [place] Academy of Neurology (AAN): www.aan.com Brain Injury Association of [place]: www.biausa.org Get help right away if you: Are taking blood thinners and you fall or you experience minor trauma to the head. If you take any blood thinners, even a very small injury can cause a subdural hematoma. Have a bleeding disorder and you fall or you experience minor trauma to the head. Develop any of the following symptoms after a head injury: ? Clear fluid draining from your nose or ears. ? Nausea or vomiting. ? Changes in speech or trouble understanding what people say. ? Seizures. ? Drowsiness or a decrease in alertness. ? Double vision. ? Numbness or inability to move (paralysis) in any part of your body. ? Difficulty walking or poor coordination. ? Difficulty thinking. ? Confusion or forgetfulness. ? Personality changes. ? Irrational or aggressive behavior. These symptoms may represent a serious problem that is an emergency. Do not wait to see if the symptoms will go away. Get medical help right away. Call your local emergency services (911 in the [place] Do not drive yourself to the hospital. Summary A subdural hematoma is a collection of blood between the brain and its outer covering (dura). Treatment for this condition depends on what type of subdural hematoma you have and how severe it is. Symptoms can vary from mild to severe to life-threatening. Monitor your symptoms, and ask others around you to do the same. This information is not intended to replace advice given to you by your health care provider. Make sure you discuss any questions you have with your health care provider. Document Released: 06/19/2005 Document Revised: 07/03/2019 Document Reviewed: 07/03/2019 [employer] Patient Education 2020 [employer] Additional Information VACCINATE! IT SAVES LIVES! Members of the community who have not yet received the COVID-19 vaccine and would like to receive it can visit one of [facility] vaccine clinics. There are many vaccine clinic locations within the [facility]. For locations and available times, please visit https://gettheshot.coronavirus.[place].gov/. It is important to note that some COVID mobile vaccine clinics are held outdoors and may be canceled in rainy or stormy conditions. To learn more about pediatric vaccinations (ages 5-11), we invite you to visit the [facility] webpage. https://www.[facility].org/pages/3103-Qgepn-Vewliqhtfpo-Jbwvbrlrqd-Ptiye-Cwr stions.htmlTo learn more about the COVID-19 vaccine, we invite you to visit the CDC website for a list of frequently asked questions.https://www.cdc.gov/coronavirus/2019-ncov/vaccines/faq.html [facility] Patient Portal Access Instructions: Stay connected with your healthcare team and access your personal medical information anytime with the [facility] Patient Portal. Please follow the directions below to create your [facility] account: 1.Access the email account you provided upon registration to the hospital/physician office.2.Look for an invitation email from [facility].3.Open the email and access the invitation link: AcceptInvitation to [facility].4.Fill in the required becerra to create your account. To access your account, visit [email or web address]. Click the blue button labeled Access Patient Portal and then log in with the username and password that you created in the steps above. You will be able to view your test results, lab results, a summary of your visits, upcoming appointments and more. There is also a convenient messaging option where you can send secure messages to your p rovider. In addition, you will have the ability to download any documents or summaries to your computer and/or send the information securely to a physician. Remember that your healthcare information is confidential, so carefully consider who you will allowto register on the [facility] Patient Portal for access to your information. You can also access the [facility] Patient Portal on the [facility] shell. Simply click on Patient Portal and then log into your account. If you would like to receive a full copy of your medical records, please contact the [facility] Medical Records Department by calling [phone], Wednesday through Wednesday between 8 a.m. and 4:30 p.m. HOW TO SAFELY DISPOSE OF PRESCRIPTION MEDICATIONS Please use one of the following methods to safely dispose of your unused medications. 1.Use a drug disposal kit: the drug disposal pouch allows you to safely discard your old and unuseddrugs. Ask your nurse to give you one when you are discharged.2.Visit a local take-back location: Many local pharmacies and police departments have programs that collect old and unwanted prescriptiondrugs. Call your local pharmacy or go to http://[employer] Education.Shaser/5Q6Ek7z to find one close to you.3.Make use of household items: Use cat litter or old coffee grounds to dispose medications if other options arenot available. Mix your drugs with these household products, seal them in an airtight container andthrow it into the garbage. Call [facility]: [phone] to be sure your drugs can be disposed of in this way. Some medicines may require a different approach.4.Never flush your medications down the toilet. IF YOU HAVE BEEN PRESCRIBED AN OPIOID FOR PAIN If you have been prescribed an opioid (such as hydrocodone, oxycodone or morphine), it is critical to understand the possible side effects and risks of opioid pain medications. Even when taken as directed, opioids can have several side effects including: Tolerance, meaning you might need to take more of a medication for the same pain relief. Nausea, vomiting and/or constipation. Sleepiness, dizziness, dry mouth, confusion, depression or itching. Physical dependence, meaning you have withdrawal symptoms when a medication is stopped, can develop within a few days. KNOW YOUR RESPONSIBILITIES It is important to know exactly how much and how often to take the opioid pain medications you are prescribed. Never take opioids in higher amounts or more often than prescribed. Do not combine opioids with alcohol or other drugs that cause drowsiness, such as benzodiazepines, also known as benzos, including diazepam and alprazolam, muscle relaxants or sleep aids. Never sell or share prescription opioids. This is illegal. Store opioids in a secure place and out of reach of others (including children, family, friends and visitors). The last page of this document has been signed and retained as a CHART COPY. Signatures Patient Education Materials Subdural Hematoma Medication Leaflets My discharge plan and instructions have been reviewed and explained to me and IANA PAULA TIM D understand my current condition and have read and understand these discharge instructions. I have received a written copy of the plan/instructions. If I have questions, I am aware that I should contact my doctor. 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 Card[facility] Progress note Date of Service 04/26/24 Chief Complaint Headache Subjective No major overnight events. Patient has no new complaints today. Discussed with nursing, plan is fordischarge tomorrow to rehab. Objective Vitals and Measurements T: 36.8 C (Oral) TMIN: 36.7 C (Oral) TMAX: 37.4 C (Oral) HR: 82 (Monitored) RR: 21 BP: 142/93 SpO2: 94% Intake and Output 7AM Yesterday to 7AM Today Intake and Output (Last 24 hours) Intake Oral Intake 680.00 Output Urine Voided 1450.00 Urinary Catheter Output: 550.00 Stool Count 0.00 Total Summary Total Intake 680.00 Total Output 2000.00 Fluid Balance -1320.00 Physical Exam General Appearance: in no acute distress. Alert. EENT: No thyroid disease. ocular movements intact Cardiac: RRR. S1 and S2. no murmurs or rubs. Lungs: Clear breath sounds. No wheeze or crackles noted. Abdomen: soft. non tender. bowel sounds audible Neurological: alert and oriented. Skin: warm. dry Weight Dosing Weight: 88.1 kg (04/20/24) Medications Medications (14) Active Scheduled: (7) atorvastatin 40 mg tablet 40 mg 1 tab(s), Oral, qDay clopidogrel 75 mg Tablet 75 mg 1 tab(s), Oral, qDay diazepam 5 mg tablet 5 mg 1 tab(s), Oral, TID hydrochlorothiazide 25 mg tablet 25 mg 1 tab(s), Oral, qDay losartan 50 mg tablet 50 mg 1 tab(s), Oral, qDay metoprolol succinate 25 mg ER tablet 25 mg 1 tab(s), Oral, qDayM pantoprazole 20 mg EC tablet 20 mg 1 tab(s), Oral, qDayAC Continuous: (0) PRN: (7) acetaminophen 500 mg Tablet 1,000 mg 2 tab(s), Oral, q6hr acetaminophen-HYDROcodone 325-5 mg tablet 1 tab(s), Oral, q4h acetaminophen-HYDROcodone 325-5 mg tablet 2 tab(s), Oral, q4h docusate sodium 100 mg Capsule 100 mg 1 cap(s), Oral, BID hydralazine 20 mg/mL (1mL) vial 10 mg 0.5 mL, IV Push, q2h magnesium hydroxide 8% Suspension 30 mL UD 30 mL, Oral, qHS ondansetron 2 mg/ 1 mL 2 mL INJ 4 mg 2 mL, IV Push, q4h Lab Results No 36 Hour Lab Data Imaging Results and Diagnostics CT Head or Brain w/o Contrast Result Date: April 25, 2024 Verified By: LETY POSADAS MD CLINICAL STATEMENT: IMPRESSION: No significant interval change. CT Head or Brain w/o Contrast Result Date: April 24, 2024 Verified By: Naima_NATE eli CLINICAL STATEMENT: IMPRESSION: No significant change in the right parietal intraparenchymal hemorrhagewithout identification of new hemorrhage. CT Head or Brain w/o Contrast Result Date: April 23, 2024 Verified By: LUIS BEAULIEU MD CLINICAL STATEMENT: IMPRESSION: Intracranial hemorrhage is very similar to the previous exam including mildlocal mass effect. CT Head or Brain w/o Contrast Result Date: April 22, 2024 Verified By: DAVIN GAGNON MD CLINICAL STATEMENT: IMPRESSION: No significant interval change from previous exam. I have personally reviewed the images of this examination and agree with theresident's findings and interpretation. CT Head or Brain w/o Contrast Result Date: April 21, 2024 Verified By: HECTOR CELESTE MD CLINICAL STATEMENT: IMPRESSION: No significant change from prior exam. CT Head or Brain w/o Contrast Result Date: April 21, 2024 Verified By: DAVIN GAGNON MD CLINICAL STATEMENT: IMPRESSION: Similar appearing right parietal intraparenchymal hematoma withintraventricular extension and trace subarachnoid hemorrhage with effacementof the adjacent sulci. No midline shift. New trace left parietal subarachnoid hemorrhage. Laurence Don MD called these results to May Jaeger RN at 05:49 04/21/2024. Preliminary Report was Dictated by a Resident EKG No qualifying data available. Assessment/Plan Intraparenchymal hemorrhage [stable CT findings] History of Mobitz type I second-degree AV block [incidental followed by EP as outpatient] Hypertension Carotid artery disease Obstructive sleep apnea with inspire History of neurocardiogenic syncope Continue Plavix 75mg daily for now. Repeat brain imaging in 2 weeks for stability; if no significant change would recommend resuming aspirin at that time. Will need cardiology follow-up in 2 weeks after imaging. Goal systolic BP less than 130 mmHg. Noted increase in losartan to 50 mg, agree with this. Continuemetoprolol succinate XL 25mg and HCTZ 25mg daily in addition to losartan for better BP control. Cardiology will sign off today. Digitally Signed by JOHN LONG DO on 04/26/2024 04:[address] [id number]iology Progress note Date of Service 04/26/24 Chief Complaint Headache Subjective No major overnight events. Patient has no new complaints today. Discussed with nursing, plan is fordischarge tomorrow to rehab. Objective Vitals and Measurements T: 36.8 C (Oral) TMIN: 36.7 C (Oral) TMAX: 37.4 C (Oral) HR: 82 (Monitored) RR: 21 BP: 142/93 SpO2:94% Intake and Output 7AM Yesterday to 7AM Today Intake and Output (Last 24 hours) Intake Oral Intake 680.00 Output Urine Voided 1450.00 Urinary Catheter Output: 550.00 Stool Count 0.00 Total Summary Total Intake 680.00 Total Output 2000.00 Fluid Balance -1320.00 Physical Exam General Appearance: in no acute distress. Alert. EENT: No thyroid disease. ocular movements intact Cardiac: RRR. S1 and S2. no murmurs or rubs. Lungs: Clear breath sounds. No wheeze or crackles noted. Abdomen: soft. non tender. bowel sounds audible Neurological: alert and oriented. Skin: warm. dry Weight Dosing Weight: 88.1 kg (04/20/24) Medications Medications (14) Active Scheduled: (7) atorvastatin 40 mg tablet 40 mg 1 tab(s), Oral, qDay clopidogrel 75 mg Tablet 75 mg 1 tab(s), Oral, qDay diazepam 5 mg tablet 5 mg 1 tab(s), Oral, TID hydrochlorothiazide 25 mg tablet 25 mg 1 tab(s), Oral, qDay losartan 50 mg tablet 50 mg 1 tab(s), Oral, qDay metoprolol succinate 25 mg ER tablet 25 mg 1 tab(s), Oral, qDayM pantoprazole 20 mg EC tablet 20 mg 1 tab(s), Oral, qDayAC Continuous: (0) PRN: (7) acetaminophen 500 mg Tablet 1,000 mg 2 tab(s), Oral, q6hr acetaminophen-HYDROcodone 325-5 mg tablet 1 tab(s), Oral, q4h acetaminophen-HYDROcodone 325-5 mg tablet 2 tab(s), Oral, q4h docusate sodium 100 mg Capsule 100 mg 1 cap(s), Oral, BID hydralazine 20 mg/mL (1mL) vial 10 mg 0.5 mL, IV Push, q2h magnesium hydroxide 8% Suspension 30 mL UD 30 mL, Oral, qHS ondansetron 2 mg/ 1 mL 2 mL INJ 4 mg 2 mL, IV Push, q4h Lab Results No 36 Hour Lab Data Imaging Results and Diagnostics CT Head or Brain w/o Contrast Result Date: April 25, 2024 Verified By: LETY POSADAS MD CLINICAL STATEMENT: IMPRESSION: No significant interval change. CT Head or Brain w/o Contrast Result Date: April 24, 2024 Verified By: Naima_NATE eli CLINICAL STATEMENT: IMPRESSION: No significant change in the right parietal intraparenchymal hemorrhagewithout identification of new hemorrhage. CT Head or Brain w/o Contrast Result Date: April 23, 2024 Verified By: LUIS BEAULIEU MD CLINICAL STATEMENT: IMPRESSION: Intracranial hemorrhage is very similar to the previous exam including mildlocal mass effect. CT Head or Brain w/o Contrast Result Date: April 22, 2024 Verified By: DAVIN GAGNON MD CLINICAL STATEMENT: IMPRESSION: No significant interval change from previous exam. I have personally reviewed the images of this examination and agree with theresident's findings and interpretation. CT Head or Brain w/o Contrast Result Date: April 21, 2024 Verified By: HECTOR CELESTE MD CLINICAL STATEMENT: IMPRESSION: No significant change from prior exam. CT Head or Brain w/o Contrast Result Date: April 21, 2024 Verified By: DAVIN GAGNON MD CLINICAL STATEMENT: IMPRESSION: Similar appearing right parietal intraparenchymal hematoma withintraventricular extension and trace subarachnoid hemorrhage with effacementof the adjacent sulci. No midline shift. New trace left parietal subarachnoid hemorrhage. Laurence Don MD called these results to May Jaeger RN at 05:49 on04/21/2024. Preliminary Report was Dictated by a Resident EKG No qualifying data available. Assessment/Plan Intraparenchymal hemorrhage [stable CT findings] History of Mobitz type I second-degree AV block [incidental followed by EP as outpatient] Hypertension Carotid artery disease Obstructive sleep apnea with inspire History of neurocardiogenic syncope Continue Plavix 75mg daily for now. Repeat brain imaging in 2 weeks for stability; if no significant change would recommend resuming aspirin at that time. Will need cardiology follow-up in 2 weeks after imaging. Goal systolic BP less than 130 mmHg. Noted increase in losartan to 50 mg, agree with this. Continuemetoprolol succinate XL 25mg and HCTZ 25mg daily in addition to losartan for better BP control. Cardiology will sign off today. Digitally Signed by JOHN LONG DO on 04/26/2024 04:[address] [facility] [id number] Neurological surgery Progress note Date of Service 04/26/2024 This is a split/shared visit with Dr. Ryder Neurosurgical CC: Right parietal IPH This is a 68-year-old male who underwent a heart cath with stent placement to the proximal LAD on 04/19/[address] Casper. Patient then arrived at the [facility] ED on 04/20/2024 due to confusion and headache. He had a CT of the head which demonstrated a 4.7 right parietal intraparenchymal hemorrhage with extension into the right lateral ventricle. He was also noted to have surrounding edema but no significant midline shift. Due to these findings, patient was transferred to [facility]. The patient did receive aspirin 325 mg, 60 mg of Effient, and 14,000 units of heparin during the heart cath. He was also discharged on aspirin and Effient, but had not yet started the medications. Dr. Casper was updated regarding the patient's intracranial hemorrhage and that the antiplatelet medications will be placed on hold. DDAVP was not given to reverse the antiplatelet agents, due to the recent stent placement and the increased risk of acute stent thrombosis. 1 unit of platelets was given. He was noted to be hypertensive on admission and was started on Cardene drip. The Cardene was weaned off in less than 24 hours, and he has received hydralazine as needed to maintain systolic blood pressure less than 140. Antihypertensives have been adjusted. BP better controlled. Cardiology has followed closely. Patient was started on heparin by weight on 04/21/2024 with no bolusand goal APTT of 40 50. He has been closely monitored with repeat CAT scans. Patient started on Plavix 04/24/24. HBW stopped 3 hours after Plavix dose. Repeat CT head completed 24 hours after initiation of Plavix. It redemonstrated 4.4 cm right parietal lobe hemorrhage with mild associated mass effect; no significant interval change. This morning, patient is seen resting in bed. He is awake, alert and oriented x 4 appropriately. Does continue to complain of a headache but appears improved in comparison to the last several days. Does seem to open his eyes more throughout our conversation which is certainly an improvement. He denies any acute vision changes, though does continue with a left-sided visual field deficit, as well as difficulty with depth perception. Provides that this is no different/unchanged since admission. Denies any lightheadedness/dizziness, acute paresthesias, nausea or vomiting. On exam, he is moving all 4 extremities spontaneously though does continue with slightly weaker motor strength in LUE and LLE. Sensation intact to light touch throughout. His Rosenthal catheter was removed yesterday, and he has since been voiding without difficulty. He has been tolerating p.o. intake without nausea or vomiting. Feels hungry for breakfast this morning. PT/OT have evaluated the patient and recommending acute inpatient rehab at time of discharge given his left sided neglect/unsteady gait and balance deficit. Continues to struggle with depth perception and left homonymous hemianopsia. Plan at this time is for discharge to acute rehab at [facility]. Did discuss with PHARMACOLOGY ASSOCIATE this morning who provides that patient should be able to discharge tomorrow, 04/27/2024. Objective Vitals and Measurements T: 36.9 C (Oral) TMIN: 36.9 C (Oral) TMAX: 37.4 C (Oral) HR: 61 (Apical) RR: 16 BP: 137/72 SpO2: 94% Intake and Output 7AM Yesterday to 7AM Today Intake and Output (Last 24 hours) Intake Oral Intake 610.00 Output Urine Voided 1450.00 Urinary Catheter Output: 800.00 Stool Count 0.00 Total Summary Total Intake 610.00 Total Output 2250.00 Fluid Balance -1640.00 Physical Exam Weight Dosing Weight: 88.1 kg (04/20/24) Medications Medications (14) Active Scheduled: (7) atorvastatin 40 mg tablet 40 mg 1 tab(s), Oral, qDay clopidogrel 75 mg Tablet 75 mg 1 tab(s), Oral, qDay diazepam 5 mg tablet 5 mg 1 tab(s), Oral, TID hydrochlorothiazide 25 mg tablet 25 mg 1 tab(s), Oral, qDay losartan 50 mg tablet 50 mg 1 tab(s), Oral, qDay metoprolol succinate 25 mg ER tablet 25 mg 1 tab(s), Oral, qDayM pantoprazole 20 mg EC tablet 20 mg 1 tab(s), Oral, qDayAC Continuous: (0) PRN: (7) acetaminophen 500 mg Tablet 1,000 mg 2 tab(s), Oral, q6hr acetaminophen-HYDROcodone 325-5 mg tablet 1 tab(s), Oral, q4h acetaminophen-HYDROcodone 325-5 mg tablet 2 tab(s), Oral, q4h docusate sodium 100 mg Capsule 100 mg 1 cap(s), Oral, BID hydralazine 20 mg/mL (1mL) vial 10 mg 0.5 mL, IV Push, q2h magnesium hydroxide 8% Suspension 30 mL UD 30 mL, Oral, qHS ondansetron 2 mg/ 1 mL 2 mL INJ 4 mg 2 mL, IV Push, q4h Lab Results 04/25 03:30 WBC: 8.7 Hgb: 12.5 L Hct: 37.1 L Platelet: 257 Neutrophil %: 82.1 H Glucose Level: 137 H Sodium Level: 138 Potassium Level: 3.9 BUN: 19.0 Creatinine Lvl (s): 0.93 Imaging Results [address] Head or Brain w/o Contrast Result Date: April 25, 2024 Verified By: LETY POSADAS MD CLINICAL STATEMENT: IMPRESSION: No significant interval change. CT Head or Brain w/o Contrast Result Date: April 24, 2024 Verified By: Contributor_NATE eli CLINICAL STATEMENT: IMPRESSION: No significant change in the right parietal intraparenchymal hemorrhagewithout identification of new hemorrhage. CT Head or Brain w/o Contrast Result Date: April 23, 2024 Verified By: LUIS BEAULIEU MD CLINICAL STATEMENT: IMPRESSION: Intracranial hemorrhage is very similar to the previous exam including mildlocal mass effect. CT Head or Brain w/o Contrast Result Date: April 22, 2024 Verified By: DAVIN GAGNON MD CLINICAL STATEMENT: IMPRESSION: No significant interval change from previous exam. I have personally reviewed the images of this examination and agree with theresident's findings and interpretation. CT Head or Brain w/o Contrast Result Date: April 21, 2024 Verified By: HECTOR CELESTE MD CLINICAL STATEMENT: IMPRESSION: No significant change from prior exam. CT Head or Brain w/o Contrast Result Date: April 21, 2024 Verified By: DAVIN GAGNON MD CLINICAL STATEMENT: IMPRESSION: Similar appearing right parietal intraparenchymal hematoma withintraventricular extension and trace subarachnoid hemorrhage with effacementof the adjacent sulci. No midline shift. New trace left parietal subarachnoid hemorrhage. Laurence Don MD called these results to May Jaeger RN at 05:49 on04/21/2024. Preliminary Report was Dictated by a Resident Assessment/Plan Right parietal IPH Patient currently admitted to the hospital with acute right parietal intraparenchymal hemorrhage. Underwent heart cath and stent placement to proximal LAD on 04/19/2024, the day prior to admission. In light of recent stent placement, cardiology was consulted. Patient was started on low-dose heparin by weight on 04/21/2024. Patient has had several repeat head CTs, which have remained stable. On 04/24/2024, patient was started on Plavix 75 mg daily. 3 hours later, heparin by weight was stopped. Repeat head CT completed yesterday, 24 hours following Plavix initiation, remained stable. Plan at this time is to repeat head CT in 2 weeks on an outpatient basis. If this remains stable/improved, will discuss starting 81 mg aspirin. This decision will be made by Dr. Ryder after review of repeat head CT. Outpatient office visit and imaging will be arranged for the patient. Patient continues to complain of headaches, though he does appear to be improved today in comparison to the last several days. He was scheduled on Valium, which appears to be helping. He is able to converse with me, and keeps his eyes open. Provides he has been tolerating a diet without nausea or vomiting. Voiding without difficulty. PT/OT have evaluated the patient and recommending acute inpatient rehab at time of discharge given his left sided neglect/unsteady gait and balance deficit. Continues to struggle with depth perception and left homonymous hemianopsia. Plan at this time is for discharge to acute rehab at [facility]. Did discuss with PHARMACOLOGY ASSOCIATE this morning who provides that patient should be able to discharge tomorrow, 04/27/2024. Continue to encourage mobilization, out of bed for meals 3 times a day. Did also discuss in detail with the patient that he will not be able to drive given his left-sided visual deficit. He will need follow-up with his gi physician on an outpatient basis for clearanceregarding driving. This will be added to his discharge paperwork. 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 Casper on 04/19/2024. Patient was given aspirin and Effient, as well as a heparin bolus prior to the procedure. This likely contributed to the intracranial hemorrhage. These medications were initially stopped, and patient was given 1 unit of platelets. No DDAVPwas given to prevent thrombosis of the new stent. Patient was started on low-dose heparin by weight with APTT goal 40 50 on 04/21/24. Plavix 75mg dailystarted on 04/24/24. HBW then stopped three hours afterwards. As stated above, will arrange for repeat head CT in 2 weeks, as well as subsequent office visit follow-up with Dr. Ryder. If his head CT is stable/improved, Dr. Ryder will consider starting 81 mg aspirin per cardiology's recommendations. Hypertension Patient was initially hypertensive on admission, he was started on a Cardene drip. This has since been discontinued. He is now currently taking losartan, which has been controlling his blood pressurefairly well. He does have hydralazine as needed to maintain a systolic blood pressure less than 140. Patient now on hydrochlorothiazide 25 mg qDay, losartan 50 mg qDay, metoprolol 25mg ER qDay. BP hasremained stable without further need for PRN antihypertensives overnight. Patient currently resides in SICU stepdown. He is medically cleared for discharge from the hospitalto inpatient rehab when a bed is available. Per PHARMACOLOGY ASSOCIATE, after discussion with [facility] re[facility] this morning, patient will tentatively be admitted to their facility tomorrow, 04/27/2024. Please see Dr. Ryder's addendum for further details regarding neurosurgical assessment/plan of care. Anticipated Date of Discharge 04/27/2024 Digitally Signed by SABAPATRICIA RUBIA on 04/26/2024 10:[address] [facility] [id number] Neurological surgery Progress note Date of Service 04/26/2024 This is a split/shared visit with Dr. Ryder Neurosurgical CC: Right parietal IPH This is a 68-year-old male who underwent a heart cath with stent placement to the proximal LAD on 04/19/[address] Casper. Patient then arrived at the [facility] ED on 04/20/2024 due to confusion and headache. He had a CT of the head which demonstrated a 4.7 right parietal intraparenchymal hemorrhage with extension into the right lateral ventricle. He was also noted to have surrounding edema but no significant midline shift. Due to these findings, patient was transferred to [facility]. The patient did receive aspirin 325 mg, 60 mg of Effient, and 14,000 units of heparin during the heart cath. He was also discharged on aspirin and Effient, but had not yet started the medications. Dr. Casper was updated regarding the patient's intracranial hemorrhage and that the antiplatelet medications will be placed on hold. DDAVP was not given to reverse the antiplatelet agents, due to the recent stent placement and the increased risk of acute stent thrombosis. 1 unit of platelets was given. He was noted to be hypertensive on admission and was started on Cardene drip. The Cardene was weaned off in less than 24 hours, and he has received hydralazine as needed to maintain systolic blood pressure less than 140. Antihypertensives have been adjusted. BP better controlled. Cardiology has followed closely. Patient was started on heparin by weight on 04/21/2024 with no bolusand goal APTT of 40 50. He has been closely monitored with repeat CAT scans. Patient started on Plavix 04/24/24. HBW stopped 3 hours after Plavix dose. Repeat CT head completed 24 hours after initiation of Plavix. It redemonstrated 4.4 cm right parietal lobe hemorrhage with mild associated mass effect; no significant interval change. This morning, patient is seen resting in bed. He is awake, alert and oriented x 4 appropriately. Does continue to complain of a headache but appears improved in comparison to the last several days. Does seem to open his eyes more throughout our conversation which is certainly an improvement. He denies any acute vision changes, though does continue with a left-sided visual field deficit, as well as difficulty with depth perception. Provides that this is no different/unchanged since admission. Denies any lightheadedness/dizziness, acute paresthesias, nausea or vomiting. On exam, he is moving all 4 extremities spontaneously though does continue with slightly weaker motor strength in LUE and LLE. Sensation intact to light touch throughout. His Rosenthal catheter was removed yesterday, and he has since been voiding without difficulty. He has been tolerating p.o. intake without nausea or vomiting. Feels hungry for breakfast this morning. PT/OT have evaluated the patient and recommending acute inpatient rehab at time of discharge given his left sided neglect/unsteady gait and balance deficit. Continues to struggle with depth perception and left homonymous hemianopsia. Plan at this time is for discharge to acute rehab at [facility]. Did discuss with PHARMACOLOGY ASSOCIATE this morning who provides that patient should be able to discharge tomorrow, 04/27/2024. Objective Vitals and Measurements T: 36.9 C (Oral) TMIN: 36.9 C (Oral) TMAX: 37.4 C (Oral) HR: 61 (Apical) RR: 16 BP: 137/72 SpO2: 94% Intake and Output 7AM Yesterday to 7AM Today Intake and Output (Last 24 hours) Intake Oral Intake 610.00 Output Urine Voided 1450.00 Urinary Catheter Output: 800.00 Stool Count 0.00 Total Summary Total Intake 610.00 Total Output 2250.00 Fluid Balance -1640.00 Physical Exam Weight Dosing Weight: 88.1 kg (04/20/24) Medications Medications (14) Active Scheduled: (7) atorvastatin 40 mg tablet 40 mg 1 tab(s), Oral, qDay clopidogrel 75 mg Tablet 75 mg 1 tab(s), Oral, qDay diazepam 5 mg tablet 5 mg 1 tab(s), Oral, TID hydrochlorothiazide 25 mg tablet 25 mg 1 tab(s), Oral, qDay losartan 50 mg tablet 50 mg 1 tab(s), Oral, qDay metoprolol succinate 25 mg ER tablet 25 mg 1 tab(s), Oral, qDayM pantoprazole 20 mg EC tablet 20 mg 1 tab(s), Oral, qDayAC Continuous: (0) PRN: (7) acetaminophen 500 mg Tablet 1,000 mg 2 tab(s), Oral, q6hr acetaminophen-HYDROcodone 325-5 mg tablet 1 tab(s), Oral, q4h acetaminophen-HYDROcodone 325-5 mg tablet 2 tab(s), Oral, q4h docusate sodium 100 mg Capsule 100 mg 1 cap(s), Oral, BID hydralazine 20 mg/mL (1mL) vial 10 mg 0.5 mL, IV Push, q2h magnesium hydroxide 8% Suspension 30 mL UD 30 mL, Oral, qHS ondansetron 2 mg/ 1 mL 2 mL INJ 4 mg 2 mL, IV Push, q4h Lab Results 04/25 03:30 WBC: 8.7 Hgb: 12.5 L Hct: 37.1 L Platelet: 257 Neutrophil %: 82.1 H Glucose Level: 137 H Sodium Level: 138 Potassium Level: 3.9 BUN: 19.0 Creatinine Lvl (s): 0.93 Imaging Results [address] Head or Brain w/o Contrast Result Date: April 25, 2024 Verified By: LETY POSADAS MD CLINICAL STATEMENT: IMPRESSION: No significant interval change. CT Head or Brain w/o Contrast Result Date: April 24, 2024 Verified By: Naima_NATE eli CLINICAL STATEMENT: IMPRESSION: No significant change in the right parietal intraparenchymal hemorrhagewithout identification of new hemorrhage. CT Head or Brain w/o Contrast Result Date: April 23, 2024 Verified By: LUIS BEAULIEU MD CLINICAL STATEMENT: IMPRESSION: Intracranial hemorrhage is very similar to the previous exam including mildlocal mass effect. CT Head or Brain w/o Contrast Result Date: April 22, 2024 Verified By: DAVIN GAGNON MD CLINICAL STATEMENT: IMPRESSION: No significant interval change from previous exam. I have personally reviewed the images of this examination and agree with theresident's findings and interpretation. CT Head or Brain w/o Contrast Result Date: April 21, 2024 Verified By: HECTOR CELESTE MD CLINICAL STATEMENT: IMPRESSION: No significant change from prior exam. CT Head or Brain w/o Contrast Result Date: April 21, 2024 Verified By: DAVIN GAGNON MD CLINICAL STATEMENT: IMPRESSION: Similar appearing right parietal intraparenchymal hematoma withintraventricular extension and trace subarachnoid hemorrhage with effacementof the adjacent sulci. No midline shift. New trace left parietal subarachnoid hemorrhage. Laurence Don MD called these results to May Jaeger RN at 05:49 on04/21/2024. Preliminary Report was Dictated by a Resident Assessment/Plan Right parietal IPH Patient currently admitted to the hospital with acute right parietal intraparenchymal hemorrhage. Underwent heart cath and stent placement to proximal LAD on 04/19/2024, the day prior to admission. In light of recent stent placement, cardiology was consulted. Patient was started on low-dose heparin by weight on 04/21/2024. Patient has had several repeat head CTs, which have remained stable. On 04/24/2024, patient was started on Plavix 75 mg daily. 3 hours later, heparin by weight was stopped. Repeat head CT completed yesterday, 24 hours following Plavix initiation, remained stable. Plan at this time is to repeat head CT in 2 weeks on an outpatient basis. If this remains stable/improved, will discuss starting 81 mg aspirin. This decision will be made by Dr. Ryder after review of repeat head CT. Outpatient office visit and imaging will be arranged for the patient. Patient continues to complain of headaches, though he does appear to be improved today in comparison to the last several days. He was scheduled on Valium, which appears to be helping. He is able to converse with me, and keeps his eyes open. Provides he has been tolerating a diet without nausea or vomiting. Voiding without difficulty. PT/OT have evaluated the patient and recommending acute inpatient rehab at time of discharge given his left sided neglect/unsteady gait and balance deficit. Continues to struggle with depth perception and left homonymous hemianopsia. Plan at this time is for discharge to acute rehab at [facility]. Did discuss with PHARMACOLOGY ASSOCIATE this morning who provides that patient should be able to discharge tomorrow, 04/27/2024. Continue to encourage mobilization, out of bed for meals 3 times a day. Did also discuss in detail with the patient that he will not be able to drive given his left-sided visual deficit. He will need follow-up with his gi physician on an outpatient basis for clearanceregarding driving. This will be added to his discharge paperwork. 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 Casper on 04/19/2024. Patient was given aspirin and Effient, as well as a heparin bolus prior to the procedure. This likely contributed to the intracranial hemorrhage. These medications were initially stopped, and patient was given 1 unit of platelets. No DDAVPwas given to prevent thrombosis of the new stent. Patient was started on low-dose heparin by weight with APTT goal 40 50 on 04/21/24. Plavix 75mg dailystarted on 04/24/24. HBW then stopped three hours afterwards. As stated above, will arrange for repeat head CT in 2 weeks, as well as subsequent office visit follow-up with Dr. Ryder. If his head CT is stable/improved, Dr. Ryder will consider starting 81 mg aspirin per cardiology's recommendations. Hypertension Patient was initially hypertensive on admission, he was started on a Cardene drip. This has since been discontinued. He is now currently taking losartan, which has been controlling his blood pressurefairly well. He does have hydralazine as needed to maintain a systolic blood pressure less than 140. Patient now on hydrochlorothiazide 25 mg qDay, losartan 50 mg qDay, metoprolol 25mg ER qDay. BP hasremained stable without further need for PRN antihypertensives overnight. Patient currently resides in SICU stepdown. He is medically cleared for discharge from the hospitalto inpatient rehab when a bed is available. Per PHARMACOLOGY ASSOCIATE, after discussion with [facility] this morning, patient will tentatively be admitted to their facility tomorrow, 04/27/2024. Please see Dr. Ryder's addendum for further details regarding neurosurgical assessment/plan of care. Anticipated Date of Discharge 04/27/2024 Digitally Signed by PATRICIA WALTER on 04/26/2024 10:[address] [id number] Cardiology Progress note Date of Service 04/25/24 Chief Complaint Intraparenchymal hemorrage Objective Vitals and Measurements T: 37.0 C (Oral) TMIN: 37.0 C (Oral) TMAX: 37.3 C (Oral) HR: 93 (Apical) RR: 22 BP: 167/96 SpO2: 93% Intake and Output 7AM Yesterday to 7AM Today Intake and Output (Last 24 hours) Intake Oral Intake 660.00 Output Urine Voided 400.00 Urinary Catheter Output: 2275.00 Stool Count 0.00 Total Summary Total Intake 660.00 Total Output 2675.00 Fluid Balance - Physical Exam General Appearance: in no acute distress. Alert. EENT: No thyroid disease. ocular movements intact Cardiac: RRR. S1 and S2. no murmurs or rubs. Lungs: Clear breath sounds. No wheeze or crackles noted. Abdomen: soft. non tender. bowel sounds audible Neurological: alert and oriented. Skin: warm. dry Weight Dosing Weight: 88.1 kg (04/20/24) Medications Medications (14) Active Scheduled: (7) atorvastatin 40 mg tablet 40 mg 1 tab(s), Oral, qDay clopidogrel 75 mg Tablet 75 mg 1 tab(s), Oral, qDay diazepam 5 mg tablet 5 mg 1 tab(s), Oral, TID hydrochlorothiazide 25 mg tablet 25 mg 1 tab(s), Oral, qDay losartan 50 mg tablet 50 mg 1 tab(s), Oral, qDay metoprolol succinate 25 mg ER tablet 25 mg 1 tab(s), Oral, qDayM pantoprazole 20 mg EC tablet 20 mg 1 tab(s), Oral, qDayAC Continuous: (0) PRN: (7) acetaminophen 500 mg Tablet 1,000 mg 2 tab(s), Oral, q6hr acetaminophen-HYDROcodone 325-5 mg tablet 1 tab(s), Oral, q4h acetaminophen-HYDROcodone 325-5 mg tablet 2 tab(s), Oral, q4h docusate sodium 100 mg Capsule 100 mg 1 cap(s), Oral, BID hydralazine 20 mg/mL (1mL) vial 10 mg 0.5 mL, IV Push, q2h magnesium hydroxide 8% Suspension 30 mL UD 30 mL, Oral, qHS ondansetron 2 mg/ 1 mL 2 mL INJ 4 mg 2 mL, IV Push, q4h Lab Results 04/25 03:30 WBC: 8.7 Hgb: 12.5 L Hct: 37.1 L Platelet: 257 Neutrophil %: 82.1 H Glucose Level: 137 H Sodium Level: 138 Potassium Level: 3.9 BUN: 19.0 Creatinine Lvl (s): 0.93 04/24 08:29 WBC: 9.0 Hgb: 12.2 L Hct: 36.1 L Platelet: 233 Neutrophil %: 75.6 H Glucose Level: 119 H Sodium Level: 138 Potassium Level: 3.5 BUN: 19.0 Creatinine Lvl (s): 1.06 Imaging Results and Diagnostics CT Head or Brain w/o Contrast Result Date: April 25, 2024 Verified By: LETY POSADAS MD CLINICAL STATEMENT: IMPRESSION: No significant interval change. CT Head or Brain w/o Contrast Result Date: April 24, 2024 Verified By: NATE Mai CLINICAL STATEMENT: IMPRESSION: No significant change in the right parietal intraparenchymal hemorrhagewithout identification of new hemorrhage. CT Head or Brain w/o Contrast Result Date: April 23, 2024 Verified By: LUIS BEAULIEU MD CLINICAL STATEMENT: IMPRESSION: Intracranial hemorrhage is very similar to the previous exam including mildlocal mass effect. CT Head or Brain w/o Contrast Result Date: April 22, 2024 Verified By: DAVIN GAGNON MD CLINICAL STATEMENT: IMPRESSION: No significant interval change from previous exam. I have personally reviewed the images of this examination and agree with theresident's findings and interpretation. CT Head or Brain w/o Contrast Result Date: April 21, 2024 Verified By: HECTOR CELESTE MD CLINICAL STATEMENT: IMPRESSION: No significant change from prior exam. CT Head or Brain w/o Contrast Result Date: April 21, 2024 Verified By: DAVIN GAGNON MD CLINICAL STATEMENT: IMPRESSION: Similar appearing right parietal intraparenchymal hematoma withintraventricular extension and trace subarachnoid hemorrhage with effacementof the adjacent sulci. No midline shift. New trace left parietal subarachnoid hemorrhage. Laurence Don MD called these results to May Jaeger RN at 05:49 on04/21/2024. Preliminary Report was Dictated by a Resident EKG EKG - Completed -- 04/24/24 16:13:00 EDT Assessment/Plan Orders: metoprolol(metoprolol succinate 25 mg oral TABLET extended release), 25 mg= 1 tab(s), Oral, qDayM CAD status post PCI to LAD 04/19/2024 [DAPT on hold currently on heparin infusion] Intraparenchymal hemorrhage [stable CT findings] History of Mobitz type I second-degree AV block [incidental followed by EP as outpatient] Hypertension Carotid artery disease Obstructive sleep apnea with inspire History of neurocardiogenic syncope Continue Plavix 75mg daily for now. Repeat brain imaging in 2 weeks for stability; if no significant change would recommend resuming aspirin at that time. Blood pressure control is of utmost importance. Goal systolic BP less than 130 mmHg, and it has remained above that this morning. Will add metoprolol succinate XL 25mg today, monitor for bradycardia.Continue HCTZ 25mg daily in addition to losartan 25mg for better BP control. Reasonable to use as needed IV medications for control while inpatient. Noted change of clonidine from scheduled to PRN. We will follow along. Digitally Signed by JOHN LONG DO on 04/25/2024 06:[address] [id number] Cardiology Progress note Date of Service 04/25/24 Chief Complaint Intraparenchymal hemorrage Objective Vitals and Measurements T: 37.0 C (Oral) TMIN: 37.0 C (Oral) TMAX: 37.3 C (Oral) HR: 93 (Apical) RR: 22 BP: 167/96 SpO2: 93% Intake and Output 7AM Yesterday to 7AM Today Intake and Output (Last 24 hours) Intake Oral Intake 660.00 Output Urine Voided 400.00 Urinary Catheter Output: 2275.00 Stool Count 0.00 Total Summary Total Intake 660.00 Total Output 2675.00 Fluid Balance -2015. Physical Exam General Appearance: in no acute distress. Alert. EENT: No thyroid disease. ocular movements intact Cardiac: RRR. S1 and S2. no murmurs or rubs. Lungs: Clear breath sounds. No wheeze or crackles noted. Abdomen: soft. non tender. bowel sounds audible Neurological: alert and oriented. Skin: warm. dry Weight Dosing Weight: 88.1 kg (04/20/24) Medications Medications (14) Active Scheduled: (7) atorvastatin 40 mg tablet 40 mg 1 tab(s), Oral, qDay clopidogrel 75 mg Tablet 75 mg 1 tab(s), Oral, qDay diazepam 5 mg tablet 5 mg 1 tab(s), Oral, TID hydrochlorothiazide 25 mg tablet 25 mg 1 tab(s), Oral, qDay losartan 50 mg tablet 50 mg 1 tab(s), Oral, qDay metoprolol succinate 25 mg ER tablet 25 mg 1 tab(s), Oral, qDayM pantoprazole 20 mg EC tablet 20 mg 1 tab(s), Oral, qDayAC Continuous: (0) PRN: (7) acetaminophen 500 mg Tablet 1,000 mg 2 tab(s), Oral, q6hr acetaminophen-HYDROcodone 325-5 mg tablet 1 tab(s), Oral, q4h acetaminophen-HYDROcodone 325-5 mg tablet 2 tab(s), Oral, q4h docusate sodium 100 mg Capsule 100 mg 1 cap(s), Oral, BID hydralazine 20 mg/mL (1mL) vial 10 mg 0.5 mL, IV Push, q2h magnesium hydroxide 8% Suspension 30 mL UD 30 mL, Oral, qHS ondansetron 2 mg/ 1 mL 2 mL INJ 4 mg 2 mL, IV Push, q4h Lab Results 04/25 03:30 WBC: 8.7 Hgb: 12.5 L Hct: 37.1 L Platelet: 257 Neutrophil %: 82.1 H Glucose Level: 137 H Sodium Level: 138 Potassium Level: 3.9 BUN: 19.0 Creatinine Lvl (s): 0.93 04/24 08:29 WBC: 9.0 Hgb: 12.2 L Hct: 36.1 L Platelet: 233 Neutrophil %: 75.6 H Glucose Level: 119 H Sodium Level: 138 Potassium Level: 3.5 BUN: 19.0 Creatinine Lvl (s): 1.06 Imaging Results and Diagnostics CT Head or Brain w/o Contrast Result Date: April 25, 2024 Verified By: LETY POSADAS MD CLINICAL STATEMENT: IMPRESSION: No significant interval change. CT Head or Brain w/o Contrast Result Date: April 24, 2024 Verified By: Contributor_NATE eli CLINICAL STATEMENT: IMPRESSION: No significant change in the right parietal intraparenchymal hemorrhagewithout identification of new hemorrhage. CT Head or Brain w/o Contrast Result Date: April 23, 2024 Verified By: LUIS BEAULIEU MD CLINICAL STATEMENT: IMPRESSION: Intracranial hemorrhage is very similar to the previous exam including mildlocal mass effect. CT Head or Brain w/o Contrast Result Date: April 22, 2024 Verified By: DAVIN GAGNON MD CLINICAL STATEMENT: IMPRESSION: No significant interval change from previous exam. I have personally reviewed the images of this examination and agree with theresident's findings and interpretation. CT Head or Brain w/o Contrast Result Date: April 21, 2024 Verified By: HECTOR CELESTE MD CLINICAL STATEMENT: IMPRESSION: No significant change from prior exam. CT Head or Brain w/o Contrast Result Date: April 21, 2024 Verified By: DAVIN GAGNON MD CLINICAL STATEMENT: IMPRESSION: Similar appearing right parietal intraparenchymal hematoma withintraventricular extension and trace subarachnoid hemorrhage with effacementof the adjacent sulci. No midline shift. New trace left parietal subarachnoid hemorrhage. Laurence Don MD called these results to May Jaeger RN at 05:49 on04/21/2024. Preliminary Report was Dictated by a Resident EKG EKG - Completed -- 04/24/24 16:13:00 EDT Assessment/Plan Orders: metoprolol(metoprolol succinate 25 mg oral TABLET extended release), 25 mg= 1 tab(s), Oral, qDayM CAD status post PCI to LAD 04/19/2024 [DAPT on hold currently on heparin infusion] Intraparenchymal hemorrhage [stable CT findings] History of Mobitz type I second-degree AV block [incidental followed by EP as outpatient] Hypertension Carotid artery disease Obstructive sleep apnea with inspire History of neurocardiogenic syncope Continue Plavix 75mg daily for now. Repeat brain imaging in 2 weeks for stability; if no significant change would recommend resuming aspirin at that time. Blood pressure control is of utmost importance. Goal systolic BP less than 130 mmHg, and it has remained above that this morning. Will add metoprolol succinate XL 25mg today, monitor for bradycardia.Continue HCTZ 25mg daily in addition to losartan 25mg for better BP control. Reasonable to use as needed IV medications for control while inpatient. Noted change of clonidine from scheduled to PRN. We will follow along. Digitally Signed by JOHN LONG DO on 04/25/2024 06:[address] [facility] [id number] Note ORIGINAL HISTORY: Hemorrhage COMPARISON: Previous day TECHNIQUE: Routine noncontrast head CT, with sagittal and coronal reconstructions. This exam was performed according to our departmental dose optimization program, and includes the following measures where applicable: automated exposure control, adjustment of the mAs and/or kVp according to patient size and/or exam, and an iterative reconstruction algorithm. FINDINGS: There is a 4.4 cm centered in the right parietal lobe. There is mild associated mass effect, with effacement of the occipital horn and narrowing of right-sided sulci. The ventricles and sulci are otherwise within normal size limits. Osorio-white matter differentiation outside the lesion is maintained. The calvaria and the bones of the base of the skull are intact. IMPRESSION: No significant interval change. Interpreted by: Lety Posadas MD Preliminary Report By: Lety Posadas MD Electronically signed By Lety Posadas MD Dictated Date: 04/25/2024 12:51:46 PM Prelim Date: 04/25/2024 12:56:44 PM Sign Date: 04/25/2024 12:56:44 PM Ordering Provider: [facility]09-10-2024 Neurological surgery Progress note Date of Service 04/25/2024 Chief Complaint Right parietal IPH with intraventricular extension s/p heart cath and stent placement to proximal LAD 04/19/2024. This is a 68-year-old male, who underwent a cardiac cath with stent placement to the proximal LAD on 04/19/[address] Casper. Patient then arrived at the [place] emergency department on 04/20/2024 due toconfusion and headache. He had a CT of the head, which demonstrated a 4.7 right parietal intraparenchymal hemorrhage with extension into the right lateral ventricle. He was also noted to have surrounding edema but no significant midline shift. Due to these findings, patient was transferred to [facility]. The patient did receive aspirin 325 mg, 60 mg of Effient, and 14,000 units of heparin during the heart cath. He was also discharged on aspirin and Effient, but had not yet started the medications. Dr. Casper was updated regarding the patient's intracranial hemorrhage and that the antiplatelet medications will be placed on hold. DDAVP was not given to reverse the antiplatelet agents, due to the recent stent placement and the increased risk of acute stent thrombosis. 1 unit of platelets was ordered. He was noted to be hypertensive on admission, and was started on Cardene for the hypertension. The Cardene was able to be weaned off in less than 24 hours, and he has received hydralazine as needed to maintain systolic blood pressure less than 140. Student Services Representative are also still adjusting his blood pressure medications. He was started on heparin by weight on 04/21/2024 with no bolus and goal APTT of 40 50. He has been closely monitored with repeat CAT scans. His last CT of the head was yesterday evening after nursing called, and stated patient seemed to be tremoring and doing what she described as crunches in bed. Patient was alert and awake the entire time. He was carrying on a conversation while he was having thi s episode. He was sent for a stat CT of the head, and while he was in CT, nursing states he had no further tremoring or jerking of his body. The CT of the head demonstrated a stable intracranial hemorrhage. Yesterday, he was started on Plavix at 2 PM. Heparin by weight was then turned off at 5 PM. He is scheduled for repeat CT of the head at noon today. On exam this morning, he is awake, alert, and oriented x 3. He does complain of a headache, but this appears improved compared to yesterday. He is able to move his upper extremity and lower extremitystrongly. He may be just slightly weaker in the left upper and lower extremity. He continues to have some neglect to the left. His vision is significantly affected on the left. When checking his visual becerra, he is unable to see fingers moving until they are midline, when coming from the left side. In addition, during his exam, physical therapy was in the room and did walk with him out in the hallway. He does have a very unsteady gait, with short shuffling strides. He did have several loss of balance. His visual deficits, are definitely affecting his ability to mobilize safely. He is unable to see items off to his left side. In addition, he became very emotional while he was walking, stating I cannot believe this is happening to me. His depth perception is also affected. He is tolerating a diet well. He is able to feed himself, but again does have some difficulty as hecannot see items off to his left. He has a Rosenthal catheter in place draining clear yellow urine. Objective Vitals and Measurements T: 37.1 C (Oral) TMIN: 37.0 C (Oral) TMAX: 37.3 C (Oral) HR: 76 (Monitored) RR: 16 BP: 116/66 SpO2:94% Intake and Output 7AM Yesterday to 7AM Today Intake and Output (Last 24 hours) Intake Oral Intake 310.00 Administration Information 119.00 Output Urinary Catheter Output: 2725.00 Stool Count 0.00 Total Summary Total Intake 429.00 Total Output 2725.00 Fluid Balance -2296.00 Physical Exam General Appearance: This patient is well-developed and well nourished, and appears stated age. No acute distress. Head: Normocephalic, Atraumatic EENT: Mucous membranes moist. No vision or hearing changes Cardiac: S1 and S2 heard without murmur, rub, or gallop. Regular rate and rhythm. Lungs: Lungs clear. Respirations easy. No shortness of breath noted. Abdomen: BSP x 4. Abd soft, nontender, nondistended. Musculoskeletal: Moves all 4 ext without difficulty Extremities: Bilateral pedal pulses palpable. No edema noted Neurological: See HPI Skin: [place], warm, and dry. Psychiatric: Mood stable. Cooperative. Weight Dosing Weight: 88.1 kg (04/20/24) Medications Medications (14) Active Scheduled: (7) atorvastatin 40 mg tablet 40 mg 1 tab(s), Oral, qDay clonidine 0.1 mg tablet 0.1 mg 1 tab(s), Oral, BID clopidogrel 75 mg Tablet 75 mg 1 tab(s), Oral, qDay diazepam 5 mg tablet 5 mg 1 tab(s), Oral, TID hydrochlorothiazide 25 mg tablet 25 mg 1 tab(s), Oral, qDay losartan 50 mg tablet 50 mg 1 tab(s), Oral, qDay pantoprazole 20 mg EC tablet 20 mg 1 tab(s), Oral, qDayAC Continuous: (0) PRN: (7) acetaminophen 500 mg Tablet 1,000 mg 2 tab(s), Oral, q6hr acetaminophen-HYDROcodone 325-5 mg tablet 1 tab(s), Oral, q4h acetaminophen-HYDROcodone 325-5 mg tablet 2 tab(s), Oral, q4h docusate sodium 100 mg Capsule 100 mg 1 cap(s), Oral, BID hydralazine 20 mg/mL (1mL) vial 10 mg 0.5 mL, IV Push, q2h magnesium hydroxide 8% Suspension 30 mL UD 30 mL, Oral, qHS ondansetron 2 mg/ 1 mL 2 mL INJ 4 mg 2 mL, IV Push, q4h Lab Results 04/25 03:30 WBC: 8.7 Hgb: 12.5 L Hct: 37.1 L Platelet: 257 Neutrophil %: 82.1 H Glucose Level: 137 H Sodium Level: 138 Potassium Level: 3.9 BUN: 19.0 Creatinine Lvl (s): 0.93 04/24 08:29 WBC: 9.0 Hgb: 12.2 L Hct: 36.1 L Platelet: 233 Neutrophil %: 75.6 H Glucose Level: 119 H Sodium Level: 138 Potassium Level: 3.5 BUN: 19.0 Creatinine Lvl (s): 1.06 Imaging Results and Diagnostics CT Head or Brain w/o Contrast Result Date: April 24, 2024 Verified By: Naima_NATE eli CLINICAL STATEMENT: IMPRESSION: No significant change in the right parietal intraparenchymal hemorrhagewithout identification of new hemorrhage. CT Head or Brain w/o Contrast Result Date: April 23, 2024 Verified By: LUIS BEAULIEU MD CLINICAL STATEMENT: IMPRESSION: Intracranial hemorrhage is very similar to the previous exam including mildlocal mass effect. CT Head or Brain w/o Contrast Result Date: April 22, 2024 Verified By: DAVIN GAGNON MD CLINICAL STATEMENT: IMPRESSION: No significant interval change from previous exam. I have personally reviewed the images of this examination and agree with theresident's findings and interpretation. CT Head or Brain w/o Contrast Result Date: April 21, 2024 Verified By: HECTOR CELESTE MD CLINICAL STATEMENT: IMPRESSION: No significant change from prior exam. CT Head or Brain w/o Contrast Result Date: April 21, 2024 Verified By: DAVIN GAGNON MD CLINICAL STATEMENT: IMPRESSION: Similar appearing right parietal intraparenchymal hematoma withintraventricular extension and trace subarachnoid hemorrhage with effacementof the adjacent sulci. No midline shift. New trace left parietal subarachnoid hemorrhage. Laurence Don MD called these results to May Jaeger RN at 05:49 04/21/2024. Preliminary Report was Dictated by a Resident EKG EKG - Completed -- 04/24/24 16:13:00 EDT Assessment/Plan Right parietal IPH with intraventricular extension s/p heart cath and stent placement to proximal LAD 04/19/2024. -Patient is currently admitted with a right parietal intraparenchymal hemorrhage with intraventricular extension status post heart cath and stent placement to the proximal LAD on 04/19/24. -Due to the recent stent placement, he was started on low-dose heparin by weight on 04/21/2024 with goal APTT -40-50. -CT head after HBW started. -Patient was cleared yesterday to be started on Plavix 75 mg daily. No loading dose. The critical care paramedic started Plavix around 2 PM. Heparin by weight was then ordered to be stopped 3 hours later, at [address] of the head is ordered for noon today. -Patient had episode yesterday of tremoring/jerking of his body, although nursing did not feel it appeared seizure-like. He has been having severe headaches which do cause him to have some jerking attimes. He states his headache was not that severe at that time. He remembers the episode, and never had a positive loss of consciousness. He was awake alert and talking the entire time. A stat CT wasobtained, and no change noted. -Patient was evaluated by physical therapy on Wednesday, and they recommend inpatient rehab. -He continues to work with physical and Occupational Therapy, and does have notable deficits with mobility and with his depth perception and vision especially in the left eye. -He has been complaining of severe headaches, and therefore he was started on dexamethasone 4mg [id number]. His headaches do seem to be better today. Overall, he appears much improved. He is more conversant today, and is participating with PT/OT. -Valium was started yesterday, as needed for pain/tension or muscle spasms. Will schedule Valium today, as this may help with the tension in his head and with some of his anxiety. Coagulopathy secondary to aspirin and Effient use Recent stent to LAD 04/19/2024: -Recent stent placement to the LAD by Dr. Casper on 05/09. -Patient was given aspirin and Effient, as well as a heparin bolus prior to the procedure. This likely contributed to the intracranial hemorrhage. -These medications were initially stopped, and patient was given 1 unit of platelets. No DDAVP was given to prevent thrombosis of the new stent. -Patient was started on heparin by weight low-dose APTT goal 40 50 on 04/21/24. -Heparin has been stopped. He received plavix yesterday at 2pm and then Heparin stopped at 5pm. -Will repeat CT head in 2 weeks and if stable will allow to start aspirin 81mg daily per cardiologyrecommendations. Hypertension: -Patient was initially hypertensive on admission, he was started on a Cardene drip. This has since been discontinued. He is now currently taking losartan, which has been controlling his blood pressure fairly well. He does have hydralazine as needed to maintain a systolic blood pressure less than 140. -He was started on clonidine last evening, and hydrochlorothiazide yesterday afternoon. In addition, Cozaar dose was also increased this morning. If CT of the head and noon remained stable, he will be cleared to be transferred to stepdown unit. In addition, he will likely be ready for discharge in the next 24 to 48 hours, as long as his bloodpressure is under good control and his CT remained stable. Patient will benefit from inpatient rehab, as he does have significant mobility deficits due to loss of balance, unsteady gait, as well as vision loss in his left eye. Anticipated Date of Discharge Possibly in next 24-48 hours. Depending on insurance approval etc. Time Spent 30 min Digitally Signed by BARRIE FANG on 04/25/2024 10:[address] [id number] Neurological surgery Progress note Date of Service 04/25/2024 Chief Complaint Right parietal IPH with intraventricular extension s/p heart cath and stent placement to proximal LAD 04/19/2024. This is a 68-year-old male, who underwent a cardiac cath with stent placement to the proximal LAD on 04/19/[address] Casper. Patient then arrived at the [place] emergency department on 04/20/2024 due toconfusion and headache. He had a CT of the head, which demonstrated a 4.7 right parietal intraparenchymal hemorrhage with extension into the right lateral ventricle. He was also noted to have surrounding edema but no significant midline shift. Due to these findings, patient was transferred to [facility]. The patient did receive aspirin 325 mg, 60 mg of Effient, and 14,000 units of heparin during the heart cath. He was also discharged on aspirin and Effient, but had not yet started the medications. Dr. Casper was updated regarding the patient's intracranial hemorrhage and that the antiplatelet medications will be placed on hold. DDAVP was not given to reverse the antiplatelet agents, due to the recent stent placement and the increased risk of acute stent thrombosis. 1 unit of platelets was ordered. He was noted to be hypertensive on admission, and was started on Cardene for the hypertension. The Cardene was able to be weaned off in less than 24 hours, and he has received hydralazine as needed to maintain systolic blood pressure less than 140. Student Services Representative are also still adjusting his blood pressure medications. He was started on heparin by weight on 04/21/2024 with no bolus and goal APTT of 40 50. He has been closely monitored with repeat CAT scans. His last CT of the head was yesterday evening after nursing called, and stated patient seemed to be tremoring and doing what she described as crunches in bed. Patient was alert and awake the entire time. He was carrying on a conversation while he was having thi s episode. He was sent for a stat CT of the head, and while he was in CT, nursing states he had no further tremoring or jerking of his body. The CT of the head demonstrated a stable intracranial hemorrhage. Yesterday, he was started on Plavix at 2 PM. Heparin by weight was then turned off at 5 PM. He is scheduled for repeat CT of the head at noon today. On exam this morning, he is awake, alert, and oriented x 3. He does complain of a headache, but this appears improved compared to yesterday. He is able to move his upper extremity and lower extremitystrongly. He may be just slightly weaker in the left upper and lower extremity. He continues to have some neglect to the left. His vision is significantly affected on the left. When checking his visual becerra, he is unable to see fingers moving until they are midline, when coming from the left side. In addition, during his exam, physical therapy was in the room and did walk with him out in the hallway. He does have a very unsteady gait, with short shuffling strides. He did have several loss of balance. His visual deficits, are definitely affecting his ability to mobilize safely. He is unable to see items off to his left side. In addition, he became very emotional while he was walking, stating I cannot believe this is happening to me. His depth perception is also affected. He is tolerating a diet well. He is able to feed himself, but again does have some difficulty as hecannot see items off to his left. He has a Rosenthal catheter in place draining clear yellow urine. Objective Vitals and Measurements T: 37.1 C (Oral) TMIN: 37.0 C (Oral) TMAX: 37.3 C (Oral) HR: 76 (Monitored) RR: 16 BP: 116/66 SpO2:94% Intake and Output 7AM Yesterday to 7AM Today Intake and Output (Last 24 hours) Intake Oral Intake 310.00 Administration Information 119.00 Output Urinary Catheter Output: 2725.00 Stool Count 0.00 Total Summary Total Intake 429.00 Total Output 2725.00 Fluid Balance -2296.00 Physical Exam General Appearance: This patient is well-developed and well nourished, and appears stated age. No acute distress. Head: Normocephalic, Atraumatic EENT: Mucous membranes moist. No vision or hearing changes Cardiac: S1 and S2 heard without murmur, rub, or gallop. Regular rate and rhythm. Lungs: Lungs clear. Respirations easy. No shortness of breath noted. Abdomen: BSP x 4. Abd soft, nontender, nondistended. Musculoskeletal: Moves all 4 ext without difficulty Extremities: Bilateral pedal pulses palpable. No edema noted Neurological: See HPI Skin: [place], warm, and dry. Psychiatric: Mood stable. Cooperative. Weight Dosing Weight: 88.1 kg (04/20/24) Medications Medications (14) Active Scheduled: (7) atorvastatin 40 mg tablet 40 mg 1 tab(s), Oral, qDay clonidine 0.1 mg tablet 0.1 mg 1 tab(s), Oral, BID clopidogrel 75 mg Tablet 75 mg 1 tab(s), Oral, qDay diazepam 5 mg tablet 5 mg 1 tab(s), Oral, TID hydrochlorothiazide 25 mg tablet 25 mg 1 tab(s), Oral, qDay losartan 50 mg tablet 50 mg 1 tab(s), Oral, qDay pantoprazole 20 mg EC tablet 20 mg 1 tab(s), Oral, qDayAC Continuous: (0) PRN: (7) acetaminophen 500 mg Tablet 1,000 mg 2 tab(s), Oral, q6hr acetaminophen-HYDROcodone 325-5 mg tablet 1 tab(s), Oral, q4h acetaminophen-HYDROcodone 325-5 mg tablet 2 tab(s), Oral, q4h docusate sodium 100 mg Capsule 100 mg 1 cap(s), Oral, BID hydralazine 20 mg/mL (1mL) vial 10 mg 0.5 mL, IV Push, q2h magnesium hydroxide 8% Suspension 30 mL UD 30 mL, Oral, qHS ondansetron 2 mg/ 1 mL 2 mL INJ 4 mg 2 mL, IV Push, q4h Lab Results 04/25 03:30 WBC: 8.7 Hgb: 12.5 L Hct: 37.1 L Platelet: 257 Neutrophil %: 82.1 H Glucose Level: 137 H Sodium Level: 138 Potassium Level: 3.9 BUN: 19.0 Creatinine Lvl (s): 0.93 04/24 08:29 WBC: 9.0 Hgb: 12.2 L Hct: 36.1 L Platelet: 233 Neutrophil %: 75.6 H Glucose Level: 119 H Sodium Level: 138 Potassium Level: 3.5 BUN: 19.0 Creatinine Lvl (s): 1.06 Imaging Results and Diagnostics CT Head or Brain w/o Contrast Result Date: April 24, 2024 Verified By: Naima_sreedharNATE CLINICAL STATEMENT: IMPRESSION: No significant change in the right parietal intraparenchymal hemorrhagewithout identification of new hemorrhage. CT Head or Brain w/o Contrast Result Date: April 23, 2024 Verified By: LUIS BEAULIEU MD CLINICAL STATEMENT: IMPRESSION: Intracranial hemorrhage is very similar to the previous exam including mildlocal mass effect. CT Head or Brain w/o Contrast Result Date: April 22, 2024 Verified By: DAVIN GAGNON MD CLINICAL STATEMENT: IMPRESSION: No significant interval change from previous exam. I have personally reviewed the images of this examination and agree with theresident's findings and interpretation. CT Head or Brain w/o Contrast Result Date: April 21, 2024 Verified By: HECTOR CELESTE MD CLINICAL STATEMENT: IMPRESSION: No significant change from prior exam. CT Head or Brain w/o Contrast Result Date: April 21, 2024 Verified By: DAVIN GAGNON MD CLINICAL STATEMENT: IMPRESSION: Similar appearing right parietal intraparenchymal hematoma withintraventricular extension and trace subarachnoid hemorrhage with effacementof the adjacent sulci. No midline shift. New trace left parietal subarachnoid hemorrhage. Laurence Don MD called these results to May Jaeger RN at 05:49 on04/21/2024. Preliminary Report was Dictated by a Resident EKG EKG - Completed -- 04/24/24 16:13:00 EDT Assessment/Plan Right parietal IPH with intraventricular extension s/p heart cath and stent placement to proximal LAD 04/19/2024. -Patient is currently admitted with a right parietal intraparenchymal hemorrhage with intraventricular extension status post heart cath and stent placement to the proximal LAD on 04/19/24. -Due to the recent stent placement, he was started on low-dose heparin by weight on 04/21/2024 with goal APTT -40-50. -CT head after HBW started. -Patient was cleared yesterday to be started on Plavix 75 mg daily. No loading dose. The critical care paramedic started Plavix around 2 PM. Heparin by weight was then ordered to be stopped 3 hours later, at 5PM. A repeat CT of the head is ordered for noon today. -Patient had episode yesterday of tremoring/jerking of his body, although nursing did not feel it appeared seizure-like. He has been having severe headaches which do cause him to have some jerking attimes. He states his headache was not that severe at that time. He remembers the episode, and never had a positive loss of consciousness. He was awake alert and talking the entire time. A stat CT wasobtained, and no change noted. -Patient was evaluated by physical therapy on Wednesday, and they recommend inpatient rehab. -He continues to work with physical and Occupational Therapy, and does have notable deficits with mobility and with his depth perception and vision especially in the left eye. -He has been complaining of severe headaches, and therefore he was started on dexamethasone 4mg [id number]. His headaches do seem to be better today. Overall, he appears much improved. He is more conversant today, and is participating with PT/OT. -Valium was started yesterday, as needed for pain/tension or muscle spasms. Will schedule Valium today, as this may help with the tension in his head and with some of his anxiety. Coagulopathy secondary to aspirin and Effient use Recent stent to LAD 04/19/2024: -Recent stent placement to the LAD by Dr. Casper on 05/09. -Patient was given aspirin and Effient, as well as a heparin bolus prior to the procedure. This likely contributed to the intracranial hemorrhage. -These medications were initially stopped, and patient was given 1 unit of platelets. No DDAVP was given to prevent thrombosis of the new stent. -Patient was started on heparin by weight low-dose APTT goal 40 50 on 04/21/24. -Heparin has been stopped. He received plavix yesterday at 2pm and then Heparin stopped at 5pm. -Will repeat CT head in 2 weeks and if stable will allow to start aspirin 81mg daily per cardiologyrecommendations. Hypertension: -Patient was initially hypertensive on admission, he was started on a Cardene drip. This has since been discontinued. He is now currently taking losartan, which has been controlling his blood pressure fairly well. He does have hydralazine as needed to maintain a systolic blood pressure less than 140. -He was started on clonidine last evening, and hydrochlorothiazide yesterday afternoon. In addition, Cozaar dose was also increased this morning. If CT of the head and noon remained stable, he will be cleared to be transferred to stepdown unit. In addition, he will likely be ready for discharge in the next 24 to 48 hours, as long as his bloodpressure is under good control and his CT remained stable. Patient will benefit from inpatient rehab, as he does have significant mobility deficits due to loss of balance, unsteady gait, as well as vision loss in his left eye. Anticipated Date of Discharge Possibly in next 24-48 hours. Depending on insurance approval etc. Time Spent 30 min Digitally Signed by BARRIE FANG on 04/25/2024 10:[address] [id number] Note Date of Service 04/25/2024 Subjective Mr. Cardoso is a 68-year-old male with a past medical history of coronary artery disease status post PCI (LAD 04/19/24), left carotid stenosis, hyperlipidemia, previous subdural hematoma status post trauma, obstructive sleep apnea with inspire therapy, activity induced asthma, prediabetes, Thorne, GERD status post laparoscopic Niesen fundoplication, anxiety, major depressive disorder. Underwent heart cath on 04/19/2024 and had drug-eluting stent placed to the LAD. Discharged on Aspirin and Effient. He was discharged home after his stent placement and started to complain of a headache. He presented to the [facility] emergency department on 04/20 with altered mental status. CT of the head showed a 4.7 cm right parietal intraparenchymal hematoma with intraventricular extension and trace subarachnoid hemorrhage. Initial blood pressure 165/93. Started on Cardene and Royal placed. Currently on losartan 50 mg daily, hydrochlorothiazide 25 mg daily, Clonidine 0.1 mg twice daily. Given 1 unit Platlets on admission due to dual antiplatelet therapy. HBW started 04/21 @ 1400 goal aptt 40-50. Follow-up CT's on 04/21, 04/22, 04/23, 04/24 have been stable. Has had ongoing headaches which have seemed to imp rove slightly with the initiation of Victor. His metoprolol was discontinued on 04/23 for continued bradycardia. 24-hour summary Started on Plavix 75 mg daily yesterday. Heparin by weight was stopped 3 hours after initiation of Plavix. Patient did have some what is been described as abnormal twitching yesterday afternoon and underwent stat CT of the head that showed essentially an unchanged CT of the brain. He has a follow-up CT brain this a.m. Objective Vitals and Measurements T: 37.1 C (Oral) TMIN: 37.0 C (Oral) TMAX: 37.3 C (Oral) HR: 65 (Monitored) RR: 14 BP: 136/69 SpO2:94% Intake and Output 7AM Yesterday to 7AM Today Intake and Output (Last 24 hours) Intake Oral Intake 580.00 Administration Information 213.33 Output Urinary Catheter Output: 2200.00 Stool Count 0.00 Total Summary Total Intake 793.33 Total Output 2200.00 Fluid Balance -1406.67 Physical Exam General: Alert, in no acute distress Head: Normocephalic, atraumatic ENT: PERRLA, eyes: Sclera nonicteric, oral: Mucous membranes moist, Neck: Supple, no JVD Cardiac: Regular rate and rhythm, normal S1-S2, no murmur, rubs, or gallops Respiratory: Lungs clear, respirations easy Abdomen: Soft, nontender, normoactive bowel sounds Musculoskeletal: No joint deformities, no muscle tenderness Extremities: 2+ pulses, no pedal edema Neurological: Alert and oriented x3, mild left arm weakness Skin: Warm and dry, no rash , very large bruise to right upper arm from previous IV site. Weight Dosing Weight: 88.1 kg (04/20/24) Medications Medications (14) Active Scheduled: (6) atorvastatin 40 mg tablet 40 mg 1 tab(s), Oral, qDay clonidine 0.1 mg tablet 0.1 mg 1 tab(s), Oral, BID clopidogrel 75 mg Tablet 75 mg 1 tab(s), Oral, qDay hydrochlorothiazide 25 mg tablet 25 mg 1 tab(s), Oral, qDay losartan 50 mg tablet 50 mg 1 tab(s), Oral, qDay pantoprazole 20 mg EC tablet 20 mg 1 tab(s), Oral, qDayAC Continuous: (0) PRN: (8) acetaminophen 500 mg Tablet 1,000 mg 2 tab(s), Oral, q6hr acetaminophen-HYDROcodone 325-5 mg tablet 1 tab(s), Oral, q4h acetaminophen-HYDROcodone 325-5 mg tablet 2 tab(s), Oral, q4h diazepam 5 mg tablet 5 mg 1 tab(s), Oral, TID docusate sodium 100 mg Capsule 100 mg 1 cap(s), Oral, BID hydralazine 20 mg/mL (1mL) vial 10 mg 0.5 mL, IV Push, q2h magnesium hydroxide 8% Suspension 30 mL UD 30 mL, Oral, qHS ondansetron 2 mg/ 1 mL 2 mL INJ 4 mg 2 mL, IV Push, q4h Lab Results 04/25 03:30 WBC: 8.7 Hgb: 12.5 L Hct: 37.1 L Platelet: 257 Neutrophil %: 82.1 H Glucose Level: 137 H Sodium Level: 138 Potassium Level: 3.9 BUN: 19.0 Creatinine Lvl (s): 0.93 04/24 08:29 WBC: 9.0 Hgb: 12.2 L Hct: 36.1 L Platelet: 233 Neutrophil %: 75.6 H Glucose Level: 119 H Sodium Level: 138 Potassium Level: 3.5 BUN: 19.0 Creatinine Lvl (s): 1.06 Event Name Event Result Date/Time WBC 8.7 10^3/mcL 04/25/24 03:30:00 Hgb 12.5 G/dL Low 04/25/24 03:30:00 Hct 37.1 % Low 04/25/24 03:30:00 Platelet 257 10^3/mcL 04/25/24 03:30:00 APTT 44.3 seconds High 04/24/24 14:56:00 Glucose Level 137 mg/dL High 04/25/24 03:30:00 Sodium Level 138 mEq/L 04/25/24 03:30:00 Potassium Level 3.9 mEq/L 04/25/24 03:30:00 Chloride 103 mEq/L 04/25/24 03:30:00 CO2 27 mEq/L 04/25/24 03:30:00 BUN 19 mg/dL 04/25/24 03:30:00 Creatinine Lvl (s) 0.93 mg/dL 04/25/24 03:30:00 EKG Electrocardiogram (EKG) - InProcess -- 04/24/24 16:13:00 EDT Assessment/Plan Assessment 1. Right parietal intraparenchymal hemorrhage with intraventricular extension and trace subarachnoid hemorrhage on aspirin and Effient 2. Coronary artery disease status post PCI with drug-eluting stent to LAD on 04/19/2024 4. Underlying history of neuroendocrine syncope, secondary AV block, TARIK, prediabetes and nonalcoholic hepatosteatosis, GERD, anxiety and depression Plan 1. Continue Plavix per cardiology. Plan for repeat CT head in [address] stable at that time wewill resume dual antiplatelet therapy. 2. Continue losartan 50 mg daily, hydrochlorothiazide 25 mg daily 3. Change clonidine to as needed. Would like to avoid chronic use of clonidine for concerns of rebound hypertension and frequency of dosing. If remains hypertensive today will look to uptitrate losartan tomorrow 3. Hydralazine as needed for systolic blood pressure greater than 140 4. Omeprazole for GI prophylaxis 5. BMP in the a.m. 6. Okay to transfer out of the ICU from box estimator standpoint with no further follow-up from pulmonary. Digitally Signed by LUIS IRELAND on 04/25/2024 08:[address] [facility] [id number] Note Date of Service 04/25/2024 Subjective Mr. Cardoso is a 68-year-old male with a past medical history of coronary artery disease status post PCI (LAD 04/19/24), left carotid stenosis, hyperlipidemia, previous subdural hematoma status post trauma, obstructive sleep apnea with inspire therapy, activity induced asthma, prediabetes, Thorne, GERD status post laparoscopic Niesen fundoplication, anxiety, major depressive disorder. Underwent heart cath on 04/19/2024 and had drug-eluting stent placed to the LAD. Discharged on Aspirin and Effient. He was discharged home after his stent placement and started to complain of a headache. He presented to the [facility] emergency department on 04/20 with altered mental status. CT of the head showed a 4.7 cm right parietal intraparenchymal hematoma with intraventricular extension and trace subarachnoid hemorrhage. Initial blood pressure 165/93. Started on Cardene and Maribeth placed. Currently on losartan 50 mg daily, hydrochlorothiazide 25 mg daily, Clonidine 0.1 mg twice daily. Given 1 unit Platlets on admission due to dual antiplatelet therapy. HBW started 04/21 @ 1400 goal aptt 40-50. Follow-up CT's on 04/21, 04/22, 04/23, 04/24 have been stable. Has had ongoing headaches which have seemed to imp rove slightly with the initiation of Victor. His metoprolol was discontinued on 04/23 for continued bradycardia. 24-hour summary Started on Plavix 75 mg daily yesterday. Heparin by weight was stopped 3 hours after initiation of Plavix. Patient did have some what is been described as abnormal twitching yesterday afternoon and underwent stat CT of the head that showed essentially an unchanged CT of the brain. He has a follow-up CT brain this a.m. Objective Vitals and Measurements T: 37.1 C (Oral) TMIN: 37.0 C (Oral) TMAX: 37.3 C (Oral) HR: 65 (Monitored) RR: 14 BP: 136/69 SpO2:94% Intake and Output 7AM Yesterday to 7AM Today Intake and Output (Last 24 hours) Intake Oral Intake 580.00 Administration Information 213.33 Output Urinary Catheter Output: 2200.00 Stool Count 0.00 Total Summary Total Intake 793.33 Total Output 2200.00 Fluid Balance -1406.67 Physical Exam General: Alert, in no acute distress Head: Normocephalic, atraumatic ENT: PERRLA, eyes: Sclera nonicteric, oral: Mucous membranes moist, Neck: Supple, no JVD Cardiac: Regular rate and rhythm, normal S1-S2, no murmur, rubs, or gallops Respiratory: Lungs clear, respirations easy Abdomen: Soft, nontender, normoactive bowel sounds Musculoskeletal: No joint deformities, no muscle tenderness Extremities: 2+ pulses, no pedal edema Neurological: Alert and oriented x3, mild left arm weakness Skin: Warm and dry, no rash , very large bruise to right upper arm from previous IV site. Weight Dosing Weight: 88.1 kg (04/20/24) Medications Medications (14) Active Scheduled: (6) atorvastatin 40 mg tablet 40 mg 1 tab(s), Oral, qDay clonidine 0.1 mg tablet 0.1 mg 1 tab(s), Oral, BID clopidogrel 75 mg Tablet 75 mg 1 tab(s), Oral, qDay hydrochlorothiazide 25 mg tablet 25 mg 1 tab(s), Oral, qDay losartan 50 mg tablet 50 mg 1 tab(s), Oral, qDay pantoprazole 20 mg EC tablet 20 mg 1 tab(s), Oral, qDayAC Continuous: (0) PRN: (8) acetaminophen 500 mg Tablet 1,000 mg 2 tab(s), Oral, q6hr acetaminophen-HYDROcodone 325-5 mg tablet 1 tab(s), Oral, q4h acetaminophen-HYDROcodone 325-5 mg tablet 2 tab(s), Oral, q4h diazepam 5 mg tablet 5 mg 1 tab(s), Oral, TID docusate sodium 100 mg Capsule 100 mg 1 cap(s), Oral, BID hydralazine 20 mg/mL (1mL) vial 10 mg 0.5 mL, IV Push, q2h magnesium hydroxide 8% Suspension 30 mL UD 30 mL, Oral, qHS ondansetron 2 mg/ 1 mL 2 mL INJ 4 mg 2 mL, IV Push, q4h Lab Results 04/25 03:30 WBC: 8.7 Hgb: 12.5 L Hct: 37.1 L Platelet: 257 Neutrophil %: 82.1 H Glucose Level: 137 H Sodium Level: 138 Potassium Level: 3.9 BUN: 19.0 Creatinine Lvl (s): 0.93 04/24 08:29 WBC: 9.0 Hgb: 12.2 L Hct: 36.1 L Platelet: 233 Neutrophil %: 75.6 H Glucose Level: 119 H Sodium Level: 138 Potassium Level: 3.5 BUN: 19.0 Creatinine Lvl (s): 1.06 Event Name Event Result Date/Time WBC 8.7 10^3/mcL 04/25/24 03:30:00 Hgb 12.5 G/dL Low 04/25/24 03:30:00 Hct 37.1 % Low 04/25/24 03:30:00 Platelet 257 10^3/mcL 04/25/24 03:30:00 APTT 44.3 seconds High 04/24/24 14:56:00 Glucose Level 137 mg/dL High 04/25/24 03:30:00 Sodium Level 138 mEq/L 04/25/24 03:30:00 Potassium Level 3.9 mEq/L 04/25/24 03:30:00 Chloride 103 mEq/L 04/25/24 03:30:00 CO2 27 mEq/L 04/25/24 03:30:00 BUN 19 mg/dL 04/25/24 03:30:00 Creatinine Lvl (s) 0.93 mg/dL 04/25/24 03:30:00 EKG Electrocardiogram (EKG) - InProcess -- 04/24/24 16:13:00 EDT Assessment/Plan Assessment 1. Right parietal intraparenchymal hemorrhage with intraventricular extension and trace subarachnoid hemorrhage on aspirin and Effient 2. Coronary artery disease status post PCI with drug-eluting stent to LAD on 04/19/2024 4. Underlying history of neuroendocrine syncope, secondary AV block, TARIK, prediabetes and nonalcoholic hepatosteatosis, GERD, anxiety and depression Plan 1. Continue Plavix per cardiology. Plan for repeat CT head in [address] stable at that time wewill resume dual antiplatelet therapy. 2. Continue losartan 50 mg daily, hydrochlorothiazide 25 mg daily 3. Change clonidine to as needed. Would like to avoid chronic use of clonidine for concerns of rebound hypertension and frequency of dosing. If remains hypertensive today will look to uptitrate losartan tomorrow 3. Hydralazine as needed for systolic blood pressure greater than 140 4. Omeprazole for GI prophylaxis 5. BMP in the a.m. 6. Okay to transfer out of the ICU from box estimator standpoint with no further follow-up from pulmonary. Digitally Signed by LUIS IRELAND on 04/25/2024 08:[address] [id number] Cardiology Progress note Date of Service 04/24/24 Chief Complaint Headache Subjective No major overnight events. Patient states he is feeling much better today. Denies any new chest pain, chest pressure, palpitations. He states he is wanting to go home tomorrow. Objective Vitals and Measurements T: 37.3 C (Oral) TMIN: 36.8 C (Oral) TMAX: 37.3 C (Oral) HR: 62 (Monitored) RR: 14 BP: 147/69 SpO2:93% Intake and Output 7AM Yesterday to 7AM Today Intake and Output (Last 24 hours) Intake Oral Intake 330.00 Administration Information 186.33 Output Urinary Catheter Output: 1000.00 Stool Count 0.00 Total Summary Total Intake 516.33 Total Output 1000.00 Fluid Balance -483.67 Physical Exam General Appearance: in no acute distress. Alert. EENT: No thyroid disease. ocular movements intact Cardiac: RRR. S1 and S2. no murmurs or rubs. Lungs: Clear breath sounds. No wheeze or crackles noted. Abdomen: soft. non tender. bowel sounds audible Neurological: alert and oriented. Skin: warm. dry Weight Dosing Weight: 88.1 kg (04/20/24) Medications Medications (14) Active Scheduled: (6) atorvastatin 40 mg tablet 40 mg 1 tab(s), Oral, qDay clopidogrel 75 mg Tablet 75 mg 1 tab(s), Oral, qDay dexamethasone 4 mg/1 mL solution 4 mg 1 mL, IV Push, q6hr hydrochlorothiazide 25 mg tablet 25 mg 1 tab(s), Oral, qDay losartan 50 mg tablet 50 mg 1 tab(s), Oral, qDay pantoprazole 20 mg EC tablet 20 mg 1 tab(s), Oral, qDayAC Continuous: (0) PRN: (8) acetaminophen 500 mg Tablet 1,000 mg 2 tab(s), Oral, q6hr acetaminophen-HYDROcodone 325-5 mg tablet 1 tab(s), Oral, q4h acetaminophen-HYDROcodone 325-5 mg tablet 2 tab(s), Oral, q4h diazepam 5 mg tablet 5 mg 1 tab(s), Oral, TID docusate sodium 100 mg Capsule 100 mg 1 cap(s), Oral, BID hydralazine 20 mg/mL (1mL) vial 10 mg 0.5 mL, IV Push, q2h magnesium hydroxide 8% Suspension 30 mL UD 30 mL, Oral, qHS ondansetron 2 mg/ 1 mL 2 mL INJ 4 mg 2 mL, IV Push, q4h Lab Results 04/24 08:29 WBC: 9.0 Hgb: 12.2 L Hct: 36.1 L Platelet: 233 Neutrophil %: 75.6 H Glucose Level: 119 H Sodium Level: 138 Potassium Level: 3.5 BUN: 19.0 Creatinine Lvl (s): 1.06 04/23 04:06 WBC: 11.2 H Hgb: 12.3 L Hct: 37.2 L Platelet: 231 Neutrophil %: 79.7 H Glucose Level: 118 H Sodium Level: 140 Potassium Level: 3.8 BUN: 21.0 Creatinine Lvl (s): 0.90 Imaging Results and Diagnostics CT Head or Brain w/o Contrast Result Date: April 23, 2024 Verified By: LUIS BEAULIEU MD CLINICAL STATEMENT: IMPRESSION: Intracranial hemorrhage is very similar to the previous exam including mildlocal mass effect. CT Head or Brain w/o Contrast Result Date: April 22, 2024 Verified By: ADVIN GAGNON MD CLINICAL STATEMENT: IMPRESSION: No significant interval change from previous exam. I have personally reviewed the images of this examination and agree with theresident's findings and interpretation. CT Head or Brain w/o Contrast Result Date: April 21, 2024 Verified By: HECTOR CELESTE MD CLINICAL STATEMENT: IMPRESSION: No significant change from prior exam. CT Head or Brain w/o Contrast Result Date: April 21, 2024 Verified By: DAVIN GAGNON MD CLINICAL STATEMENT: IMPRESSION: Similar appearing right parietal intraparenchymal hematoma withintraventricular extension and trace subarachnoid hemorrhage with effacementof the adjacent sulci. No midline shift. New trace left parietal subarachnoid hemorrhage. Laurence Don MD called these results to May Jaeger RN at 05:49 04/21/2024. Preliminary Report was Dictated by a Resident EKG No qualifying data available. Assessment/Plan Orders: clopidogrel(Plavix), 75 mg= 1 tab(s), Oral, qDay hydroCHLOROthiazide, 25 mg= 1 tab(s), Oral, qDay CAD status post PCI to LAD 04/19/2024 [DAPT on hold currently on heparin infusion] Intraparenchymal hemorrhage [stable CT findings] History of Mobitz type I second-degree AV block [incidental followed by EP as outpatient] Hypertension Carotid artery disease Obstructive sleep apnea with inspire History of neurocardiogenic syncope Discussed with NSGY regarding timing of resuming antiplatelet therapy. Would recommend stopping heparin drip today and resuming Plavix 75 mg daily. No loading needed. Neuro team plans to rescan with CT tomorrow to reevaluate for any parenchymal hemorrhage changes. If stable, repeat imaging in about2 weeks to confirm stability before resuming aspirin would be reasonable. Blood pressure control is of utmost importance. Goal systolic BP less than 130 mmHg. Suggest addingHCTZ 25 mg daily in addition to losartan 25 mg for better BP control. Reasonable to use as needed IV medications for control while inpatient. Noted metoprolol held in light of bradycardia. We will follow along. Digitally Signed by JOHN LONG DO on 04/24/2024 03:[address] [id number] Note ORIGINAL EXAMINATION: CT OF THE HEAD WITHOUT CONTRAST04/24/2024 5:[address] HEAD/BRAIN WITHOUT CONTRAST EXAM DESCRIPTION: TECHNIQUE: CT of the head was performed without the administration of intravenous contrast. Automated exposure control, iterative reconstruction, and/or weight based adjustment of the mA/kV was utilized to reduce the radiation dose to as low as reasonably achievable. COMPARISON: CT head, April 20-April 23, 2024. HISTORY: ORDERING SYSTEM PROVIDED HISTORY: Reason for Exam: IPH, twitching, visual changes, PT STATES NO PRE NEURO HX, ON THINNER FINDINGS: Redemonstration intraparenchymal hemorrhage right parietal lobe now measuring 4.4 x 2.5 cm previously 4.2 x 2.5 cm. Small amount of surrounding edema is present. No significant midline shift. No new hemorrhages are identified. There is no evidence of mass, midline shift, or infract. The ventricles, cortical sulci, and subarachnoid cisterns appear unremarkable. Regions of the orbits and paranasal sinuses included within the field of view are unremarkable. There is no displaced fracture or osseous neoplasm. The extracalvarial soft tissues appear unremarkable. IMPRESSION: No significant change in the right parietal intraparenchymal hemorrhage without identification of new hemorrhage. Interpreted by: Zackary Pineda MD Preliminary Report By: Zackary Pineda MD Electronically signed By Zackary Pineda MD Dictated Date: 04/24/2024 5:33:43 PM Prelim Date: 04/24/2024 5:36:02 PM Sign Date: 04/24/2024 5:36:02 PM Ordering Provider: [facility]09-09-2024 NoteSinus tachycardia Low voltage, extremity leads Borderline prolonged QT interval Nondiagnostic ST depression Electronic Signature: CLAIRE HARVEY MD 04/25/2024 09:25:50[facility] 09-09-2024 Cardiology Progress note Date of Service 04/24/24 Chief Complaint Headache Subjective No major overnight events. Patient states he is feeling much better today. Denies any new chest pain, chest pressure, palpitations. He states he is wanting to go home tomorrow. Objective Vitals and Measurements T: 37.3 C (Oral) TMIN: 36.8 C (Oral) TMAX: 37.3 C (Oral) HR: 62 (Monitored) RR: 14 BP: 147/69 SpO2:93% Intake and Output 7AM Yesterday to 7AM Today Intake and Output (Last 24 hours) Intake Oral Intake 330.00 Administration Information 186.33 Output Urinary Catheter Output: 1000.00 Stool Count 0.00 Total Summary Total Intake 516.33 Total Output 1000.00 Fluid Balance -483.67 Physical Exam General Appearance: in no acute distress. Alert. EENT: No thyroid disease. ocular movements intact Cardiac: RRR. S1 and S2. no murmurs or rubs. Lungs: Clear breath sounds. No wheeze or crackles noted. Abdomen: soft. non tender. bowel sounds audible Neurological: alert and oriented. Skin: warm. dry Weight Dosing Weight: 88.1 kg (04/20/24) Medications Medications (14) Active Scheduled: (6) atorvastatin 40 mg tablet 40 mg 1 tab(s), Oral, qDay clopidogrel 75 mg Tablet 75 mg 1 tab(s), Oral, qDay dexamethasone 4 mg/1 mL solution 4 mg 1 mL, IV Push, q6hr hydrochlorothiazide 25 mg tablet 25 mg 1 tab(s), Oral, qDay losartan 50 mg tablet 50 mg 1 tab(s), Oral, qDay pantoprazole 20 mg EC tablet 20 mg 1 tab(s), Oral, qDayAC Continuous: (0) PRN: (8) acetaminophen 500 mg Tablet 1,000 mg 2 tab(s), Oral, q6hr acetaminophen-HYDROcodone 325-5 mg tablet 1 tab(s), Oral, q4h acetaminophen-HYDROcodone 325-5 mg tablet 2 tab(s), Oral, q4h diazepam 5 mg tablet 5 mg 1 tab(s), Oral, TID docusate sodium 100 mg Capsule 100 mg 1 cap(s), Oral, BID hydralazine 20 mg/mL (1mL) vial 10 mg 0.5 mL, IV Push, q2h magnesium hydroxide 8% Suspension 30 mL UD 30 mL, Oral, qHS ondansetron 2 mg/ 1 mL 2 mL INJ 4 mg 2 mL, IV Push, q4h Lab Results 04/24 08:29 WBC: 9.0 Hgb: 12.2 L Hct: 36.1 L Platelet: 233 Neutrophil %: 75.6 H Glucose Level: 119 H Sodium Level: 138 Potassium Level: 3.5 BUN: 19.0 Creatinine Lvl (s): 1.06 04/23 04:06 WBC: 11.2 H Hgb: 12.3 L Hct: 37.2 L Platelet: 231 Neutrophil %: 79.7 H Glucose Level: 118 H Sodium Level: 140 Potassium Level: 3.8 BUN: 21.0 Creatinine Lvl (s): 0.90 Imaging Results and Diagnostics CT Head or Brain w/o Contrast Result Date: April 23, 2024 Verified By: LUIS BEAULIEU MD CLINICAL STATEMENT: IMPRESSION: Intracranial hemorrhage is very similar to the previous exam including mildlocal mass effect. CT Head or Brain w/o Contrast Result Date: April 22, 2024 Verified By: DAVIN GAGNON MD CLINICAL STATEMENT: IMPRESSION: No significant interval change from previous exam. I have personally reviewed the images of this examination and agree with theresident's findings and interpretation. CT Head or Brain w/o Contrast Result Date: April 21, 2024 Verified By: HECTOR CELESTE MD CLINICAL STATEMENT: IMPRESSION: No significant change from prior exam. CT Head or Brain w/o Contrast Result Date: April 21, 2024 Verified By: DAVIN GAGNON MD CLINICAL STATEMENT: IMPRESSION: Similar appearing right parietal intraparenchymal hematoma withintraventricular extension and trace subarachnoid hemorrhage with effacementof the adjacent sulci. No midline shift. New trace left parietal subarachnoid hemorrhage. Laurence Don MD called these results to May Jaeger RN at 05:49 on04/21/2024. Preliminary Report was Dictated by a Resident EKG No qualifying data available. Assessment/Plan Orders: clopidogrel(Plavix), 75 mg= 1 tab(s), Oral, qDay hydroCHLOROthiazide, 25 mg= 1 tab(s), Oral, qDay CAD status post PCI to LAD 04/19/2024 [DAPT on hold currently on heparin infusion] Intraparenchymal hemorrhage [stable CT findings] History of Mobitz type I second-degree AV block [incidental followed by EP as outpatient] Hypertension Carotid artery disease Obstructive sleep apnea with inspire History of neurocardiogenic syncope Discussed with NSGY regarding timing of resuming antiplatelet therapy. Would recommend stopping heparin drip today and resuming Plavix 75 mg daily. No loading needed. Neuro team plans to rescan with CT tomorrow to reevaluate for any parenchymal hemorrhage changes. If stable, repeat imaging in about2 weeks to confirm stability before resuming aspirin would be reasonable. Blood pressure control is of utmost importance. Goal systolic BP less than 130 mmHg. Suggest addingHCTZ 25 mg daily in addition to losartan 25 mg for better BP control. Reasonable to use as needed IV medications for control while inpatient. Noted metoprolol held in light of bradycardia. We will follow along. Digitally Signed by JOHN LONG DO on 04/24/2024 03:[address] [facility] [id number] Neurological surgery Progress note Date of Service 04/24/2024 Chief Complaint Right parietal IPH with intraventricular extension s/p heart cath and stent placement to proximal LAD 04/19/2024. This is a 68-year-old male, who underwent a cardiac cath with stent placement to the proximal LAD on 04/19/[address] Casper. Patient then arrived at the [place] emergency department on 04/20/2024 due toconfusion and headache. He had a CT of the head, which demonstrated a 4.7 right parietal intraparenchymal hemorrhage with extension into the right lateral ventricle. He was also noted to have surrounding edema but no significant midline shift. Due to these findings, patient was transferred to [facility]. The patient did receive aspirin 325 mg, 60 mg of Effient, and 14,000 units of heparin during the heart cath. He was also discharged on aspirin and Effient, but had not yet started the medications. Dr. Casper was updated regarding the patient's intracranial hemorrhage and that the antiplatelet medications will be placed on hold. DDAVP was not given to reverse the antiplatelet agents, due to the recent stent placement and the increased risk of acute stent thrombosis. 1 unit of platelets was ordered. He was noted to be hypertensive on admission, and was started on Cardene for the hypertension. The Cardene was able to be weaned off in less than 24 hours, and he has received hydralazine as needed to maintain systolic blood pressure less than 140. He was started on heparin by weight on 04/21/2024 with no bolus and goal APTT of 40 50. He has been closely monitored with repeat CAT scans. His last CT of the head was yesterday, and the intracranial hemorrhage has remained stable. On exam this morning, he is awake, alert, and oriented x 3. He does complain of a headache, mainly when the lights are turned on. He is able to move his upper extremity and lower extremity strongly. He continues to have some neglect to the left. His vision is significantly affected on the left. When checking his visual becerra, he is unable to see until fingers moving until they are midline, when c oming from the left side. Objective Vitals and Measurements T: 37.1 C (Oral) TMIN: 36.8 C (Oral) TMAX: 37.3 C (Oral) HR: 54 (Monitored) RR: 16 BP: 143/79 SpO2:93% Intake and Output 7AM Yesterday to 7AM Today Intake and Output (Last 24 hours) Intake Oral Intake 770.00 Administration Information 178.89 Output Urinary Catheter Output: 750.00 Stool Count 0.00 Total Summary Total Intake 948.89 Total Output 750.00 Fluid Balance 198.89 Physical Exam Weight Dosing Weight: 88.1 kg (04/20/24) Medications Medications (13) Active Scheduled: (4) atorvastatin 40 mg tablet 40 mg 1 tab(s), Oral, qDay dexamethasone 4 mg/1 mL solution 4 mg 1 mL, IV Push, q6hr losartan 25 mg tablet 25 mg 1 tab(s), Oral, qDay omeprazole [address] capsule 20 mg 1 cap(s), Oral, qDayAC Continuous: (1) heparin 01409 unit(s) [11.35 unit(s)/kg/hr] + Dextrose 5% Premix Diluent 250 mL 250 mL, Intravenous, 10 mL/hr PRN: (8) acetaminophen 500 mg Tablet 1,000 mg 2 tab(s), Oral, q6hr acetaminophen-HYDROcodone 325-5 mg tablet 1 tab(s), Oral, q4h acetaminophen-HYDROcodone 325-5 mg tablet 2 tab(s), Oral, q4h diazepam 5 mg tablet 5 mg 1 tab(s), Oral, TID docusate sodium 100 mg Capsule 100 mg 1 cap(s), Oral, BID hydralazine 20 mg/mL (1mL) vial 10 mg 0.5 mL, IV Push, q2h magnesium hydroxide 8% Suspension 30 mL UD 30 mL, Oral, qHS ondansetron 2 mg/ 1 mL 2 mL INJ 4 mg 2 mL, IV Push, q4h Lab Results 04/24 08:29 WBC: 9.0 Hgb: 12.2 L Hct: 36.1 L Platelet: 233 Neutrophil %: 75.6 H 04/23 04:06 WBC: 11.2 H Hgb: 12.3 L Hct: 37.2 L Platelet: 231 Neutrophil %: 79.7 H Glucose Level: 118 H Sodium Level: 140 Potassium Level: 3.8 BUN: 21.0 Creatinine Lvl (s): 0.90 Imaging Results and Diagnostics CT Head or Brain w/o Contrast Result Date: April 23, 2024 Verified By: LUIS BEAULIEU MD CLINICAL STATEMENT: IMPRESSION: Intracranial hemorrhage is very similar to the previous exam including mildlocal mass effect. CT Head or Brain w/o Contrast Result Date: April 22, 2024 Verified By: DAVIN GAGNON MD CLINICAL STATEMENT: IMPRESSION: No significant interval change from previous exam. I have personally reviewed the images of this examination and agree with theresident's findings and interpretation. CT Head or Brain w/o Contrast Result Date: April 21, 2024 Verified By: HECTOR CELESTE MD CLINICAL STATEMENT: IMPRESSION: No significant change from prior exam. CT Head or Brain w/o Contrast Result Date: April 21, 2024 Verified By: DAVIN GAGNON MD CLINICAL STATEMENT: IMPRESSION: Similar appearing right parietal intraparenchymal hematoma withintraventricular extension and trace subarachnoid hemorrhage with effacementof the adjacent sulci. No midline shift. New trace left parietal subarachnoid hemorrhage. Laurence Don MD called these results to May Jaeger RN at 05:49 on04/21/2024. Preliminary Report was Dictated by a Resident EKG EKG - Completed -- 04/22/24 1:56:00 EDT Assessment/Plan Right parietal IPH with intraventricular extension s/p heart cath and stent placement to proximal LAD 04/19/2024. -Patient is currently admitted with a right parietal intraparenchymal hemorrhage with intraventricular extension status post heart cath and stent placement to the proximal LAD on 04/19/24. -Due to the recent stent placement, he was started on low-dose heparin by weight on 04/21/2024 with goal APTT 40-50. -CT head yesterday stable. -Dr. Ryder has cleared the patient to start Plavix today. Dr. Casper has been updated regarding this information. We will need their guidance on when Plavix is to be started, and when the heparin drip can be stopped. -If Plavix is started today, a repeat CT of the head will be obtained tomorrow. -Continue to encourage mobilization. -Patient was evaluated by physical therapy on Wednesday, and they recommend inpatient rehab. -Patient has been complaining of a fairly significant headache regardless of pain medication. Will start on dexamethasone 4 mg every 6 hours. -He is currently receiving Victor and Valium as needed for pain/tension or muscle spasms. Coagulopathy secondary to aspirin and Effient use Recent stent to LAD 04/19/2024: -Recent stent placement to the LAD by Dr. Casper on 05/09. -Patient was given aspirin and Effient, as well as a heparin bolus prior to the procedure. This likely contributed to the intracranial hemorrhage. -These medications were initially stopped, and patient was given 1 unit of platelets. No DDAVP was given to prevent thrombosis of the new stent. -Patient has since been started on heparin by weight low-dose APTT goal 40 50. -He is cleared to start Plavix today. This has been communicated to cardiology. Hypertension: -Patient was initially hypertensive on admission, he started on a Cardene drip. This has since beendiscontinued. He is now currently taking losartan, which has been controlling his blood pressure fairly well. He does have hydralazine as needed to maintain a systolic blood pressure less than 140. Anticipated Date of Discharge Unknown Time Spent 15 min Digitally Signed by BARRIE FANG on 04/24/2024 09:41 AM Digitally Signed by BARRIE FANG on 04/24/2024 09:42 AM Digitally Signed by BARRIE FANG on 04/24/2024 09:43 AM Digitally Signed by BARRIE FANG on 04/24/2024 10:[address] [id number] Neurological surgery Progress note Date of Service 04/24/2024 Chief Complaint Right parietal IPH with intraventricular extension s/p heart cath and stent placement to proximal LAD 04/19/2024. This is a 68-year-old male, who underwent a cardiac cath with stent placement to the proximal LAD on 04/19/[address] Casper. Patient then arrived at the [place] emergency department on 04/20/2024 due toconfusion and headache. He had a CT of the head, which demonstrated a 4.7 right parietal intraparenchymal hemorrhage with extension into the right lateral ventricle. He was also noted to have surrounding edema but no significant midline shift. Due to these findings, patient was transferred to [facility]. The patient did receive aspirin 325 mg, 60 mg of Effient, and 14,000 units of heparin during the heart cath. He was also discharged on aspirin and Effient, but had not yet started the medications. Dr. Casper was updated regarding the patient's intracranial hemorrhage and that the antiplatelet medications will be placed on hold. DDAVP was not given to reverse the antiplatelet agents, due to the recent stent placement and the increased risk of acute stent thrombosis. 1 unit of platelets was ordered. He was noted to be hypertensive on admission, and was started on Cardene for the hypertension. The Cardene was able to be weaned off in less than 24 hours, and he has received hydralazine as needed to maintain systolic blood pressure less than 140. He was started on heparin by weight on 04/21/2024 with no bolus and goal APTT of 40 50. He has been closely monitored with repeat CAT scans. His last CT of the head was yesterday, and the intracranial hemorrhage has remained stable. On exam this morning, he is awake, alert, and oriented x 3. He does complain of a headache, mainly when the lights are turned on. He is able to move his upper extremity and lower extremity strongly. He continues to have some neglect to the left. His vision is significantly affected on the left. When checking his visual becerra, he is unable to see until fingers moving until they are midline, when c oming from the left side. Objective Vitals and Measurements T: 37.1 C (Oral) TMIN: 36.8 C (Oral) TMAX: 37.3 C (Oral) HR: 54 (Monitored) RR: 16 BP: 143/79 SpO2:93% Intake and Output 7AM Yesterday to 7AM Today Intake and Output (Last 24 hours) Intake Oral Intake 770.00 Administration Information 178.89 Output Urinary Catheter Output: 750.00 Stool Count 0.00 Total Summary Total Intake 948.89 Total Output 750.00 Fluid Balance 198.89 Physical Exam Weight Dosing Weight: 88.1 kg (04/20/24) Medications Medications (13) Active Scheduled: (4) atorvastatin 40 mg tablet 40 mg 1 tab(s), Oral, qDay dexamethasone 4 mg/1 mL solution 4 mg 1 mL, IV Push, q6hr losartan 25 mg tablet 25 mg 1 tab(s), Oral, qDay omeprazole [address] capsule 20 mg 1 cap(s), Oral, qDayAC Continuous: (1) heparin 73892 unit(s) [11.35 unit(s)/kg/hr] + Dextrose 5% Premix Diluent 250 mL 250 mL, Intravenous, 10 mL/hr PRN: (8) acetaminophen 500 mg Tablet 1,000 mg 2 tab(s), Oral, q6hr acetaminophen-HYDROcodone 325-5 mg tablet 1 tab(s), Oral, q4h acetaminophen-HYDROcodone 325-5 mg tablet 2 tab(s), Oral, q4h diazepam 5 mg tablet 5 mg 1 tab(s), Oral, TID docusate sodium 100 mg Capsule 100 mg 1 cap(s), Oral, BID hydralazine 20 mg/mL (1mL) vial 10 mg 0.5 mL, IV Push, q2h magnesium hydroxide 8% Suspension 30 mL UD 30 mL, Oral, qHS ondansetron 2 mg/ 1 mL 2 mL INJ 4 mg 2 mL, IV Push, q4h Lab Results 04/24 08:29 WBC: 9.0 Hgb: 12.2 L Hct: 36.1 L Platelet: 233 Neutrophil %: 75.6 H 04/23 04:06 WBC: 11.2 H Hgb: 12.3 L Hct: 37.2 L Platelet: 231 Neutrophil %: 79.7 H Glucose Level: 118 H Sodium Level: 140 Potassium Level: 3.8 BUN: 21.0 Creatinine Lvl (s): 0.90 Imaging Results and Diagnostics CT Head or Brain w/o Contrast Result Date: April 23, 2024 Verified By: LUIS BEAULIEU MD CLINICAL STATEMENT: IMPRESSION: Intracranial hemorrhage is very similar to the previous exam including mildlocal mass effect. CT Head or Brain w/o Contrast Result Date: April 22, 2024 Verified By: DAVIN GAGNON MD CLINICAL STATEMENT: IMPRESSION: No significant interval change from previous exam. I have personally reviewed the images of this examination and agree with theresident's findings and interpretation. CT Head or Brain w/o Contrast Result Date: April 21, 2024 Verified By: HECTOR CELESTE MD CLINICAL STATEMENT: IMPRESSION: No significant change from prior exam. CT Head or Brain w/o Contrast Result Date: April 21, 2024 Verified By: DAVIN GAGNON MD CLINICAL STATEMENT: IMPRESSION: Similar appearing right parietal intraparenchymal hematoma withintraventricular extension and trace subarachnoid hemorrhage with effacementof the adjacent sulci. No midline shift. New trace left parietal subarachnoid hemorrhage. Laurence Don MD called these results to May Jaeger RN at 05:49 on04/21/2024. Preliminary Report was Dictated by a Resident EKG EKG - Completed -- 04/22/24 1:56:00 EDT Assessment/Plan Right parietal IPH with intraventricular extension s/p heart cath and stent placement to proximal LAD 04/19/2024. -Patient is currently admitted with a right parietal intraparenchymal hemorrhage with intraventricular extension status post heart cath and stent placement to the proximal LAD on 04/19/24. -Due to the recent stent placement, he was started on low-dose heparin by weight on 04/21/2024 with goal APTT 40-50. -CT head yesterday stable. -Dr. Ryder has cleared the patient to start Plavix today. Dr. Casper has been updated regarding this information. We will need their guidance on when Plavix is to be started, and when the heparin drip can be stopped. -If Plavix is started today, a repeat CT of the head will be obtained tomorrow. -Continue to encourage mobilization. -Patient was evaluated by physical therapy on Wednesday, and they recommend inpatient rehab. -Patient has been complaining of a fairly significant headache regardless of pain medication. Will start on dexamethasone 4 mg every 6 hours. -He is currently receiving Victor and Valium as needed for pain/tension or muscle spasms. Coagulopathy secondary to aspirin and Effient use Recent stent to LAD 04/19/2024: -Recent stent placement to the LAD by Dr. Casper on 05/09. -Patient was given aspirin and Effient, as well as a heparin bolus prior to the procedure. This likely contributed to the intracranial hemorrhage. -These medications were initially stopped, and patient was given 1 unit of platelets. No DDAVP was given to prevent thrombosis of the new stent. -Patient has since been started on heparin by weight low-dose APTT goal 40 50. -He is cleared to start Plavix today. This has been communicated to cardiology. Hypertension: -Patient was initially hypertensive on admission, he started on a Cardene drip. This has since beendiscontinued. He is now currently taking losartan, which has been controlling his blood pressure fairly well. He does have hydralazine as needed to maintain a systolic blood pressure less than 140. Anticipated Date of Discharge Unknown Time Spent 15 min Digitally Signed by BARRIE FANG on 04/24/2024 09:41 AM Digitally Signed by BARRIE FANG on 04/24/2024 09:42 AM Digitally Signed by BARRIE FANG on 04/24/2024 09:43 AM Digitally Signed by BARRIE FANG on 04/24/2024 10:[address] [id number] Note Date of Service 04/24/2024 Subjective Mr. Cardoso is a 68-year-old male with a past medical history of coronary artery disease status post PCI (LAD 04/19/24), left carotid stenosis, hyperlipidemia, previous subdural hematoma status post trauma, obstructive sleep apnea with inspire therapy, activity induced asthma, prediabetes, Thorne, GERD status post laparoscopic Niesen fundoplication, anxiety, major depressive disorder. Underwent heart cath on 04/19/2024 and had drug-eluting sten placed to the LAD. Discharged on Aspirin and Effient. He was discharged home after his stent placement and started to complain of a headache. He presented to the [facility] emergency department on 04/20 with altered mental status. CT of the head showed a 4.7 cm right parietal intraparenchymal hematoma with intraventricular extension and trace subarachnoid hemorrhage. Initial blood pressure 165/93. Started on Cardene and Royal placed. Currently only on Losartan 25mg daily. Given 1 unit Platlets on admission due to dual antiplatelet therapy. HBWstarted 04/21 @ 1400 goal aptt 40-50. Follow-up CT's on 04/21, 04/22, 04/23 have been stable. 24-hour summary Continues to have headaches. Tramadol switched to Victor yesterday. Metoprolol discontinued yesterday as patient has been bradycardic. 2 doses of as needed Apresoline overnight. Plan is to start 1 antiplatelet agent today with CT of the head in am and then repeat in 2 weeks before starting a second antiplatlet agent. Objective Vitals and Measurements T: 36.9 C (Oral) TMIN: 36.8 C (Oral) TMAX: 37.3 C (Oral) HR: 64 (Monitored) RR: 14 BP: 139/80 SpO2:93% Intake and Output 7AM Yesterday to 7AM Today Intake and Output (Last 24 hours) Intake Administration Information 169.12 Oral Intake 750.00 Output Urinary Catheter Output: 850.00 Stool Count 0.00 Total Summary Total Intake 919.12 Total Output 850.00 Fluid Balance 69.12 Physical Exam General: Alert, in no acute distress Head: Normocephalic, atraumatic ENT: PERRLA, eyes: Sclera nonicteric, oral: Mucous membranes moist, Neck: Supple, no JVD Cardiac: Regular rate and rhythm, normal S1-S2, no murmur, rubs, or gallops Respiratory: Lungs clear, respirations easy Abdomen: Soft, nontender, normoactive bowel sounds Musculoskeletal: No joint deformities, no muscle tenderness Extremities: 2+ pulses, no pedal edema Neurological: Alert and oriented x3, mild left arm weakness Skin: Warm and dry, no rash Weight Dosing Weight: 88.1 kg (04/20/24) Medications Medications (12) Active Scheduled: (3) atorvastatin 40 mg tablet 40 mg 1 tab(s), Oral, qDay losartan 25 mg tablet 25 mg 1 tab(s), Oral, qDay omeprazole [address] capsule 20 mg 1 cap(s), Oral, qDayAC Continuous: (1) heparin 31217 unit(s) [11.35 unit(s)/kg/hr] + Dextrose 5% Premix Diluent 250 mL 250 mL, Intravenous, 10 mL/hr PRN: (8) acetaminophen 500 mg Tablet 1,000 mg 2 tab(s), Oral, q6hr acetaminophen-HYDROcodone 325-5 mg tablet 1 tab(s), Oral, q4h acetaminophen-HYDROcodone 325-5 mg tablet 2 tab(s), Oral, q4h diazepam 5 mg tablet 5 mg 1 tab(s), Oral, TID docusate sodium 100 mg Capsule 100 mg 1 cap(s), Oral, BID hydralazine 20 mg/mL (1mL) vial 10 mg 0.5 mL, IV Push, q2h magnesium hydroxide 8% Suspension 30 mL UD 30 mL, Oral, qHS ondansetron 2 mg/ 1 mL 2 mL INJ 4 mg 2 mL, IV Push, q4h Lab Results 04/23 04:06 WBC: 11.2 H Hgb: 12.3 L Hct: 37.2 L Platelet: 231 Neutrophil %: 79.7 H Glucose Level: 118 H Sodium Level: 140 Potassium Level: 3.8 BUN: 21.0 Creatinine Lvl (s): 0.90 EKG EKG - Completed -- 04/22/24 1:56:00 EDT Assessment/Plan Assessment 1. Right parietal intraparenchymal hemorrhage with intraventricular extension and trace subarachnoid hemorrhage on aspirin and Effient 2. Coronary artery disease status post PCI with drug-eluting stent to LAD on 04/19/2024 3. Leukocytosis, most likely reactive to intraparenchymal hemorrhage/subarachnoid hemorrhage, improving 4. Underlying history of neuroendocrine syncope, secondary AV block, TARIK, prediabetes and nonalcoholic hepatosteatosis, GERD, anxiety and depression Plan 1 continue to monitor in the ICU with frequent neurochecks. Plan is to initiate 1 antiplatelet therapy today with repeat CT of the head tomorrow morning per neurosurgery 2. Continue losartan 25 mg daily. Metoprolol was stopped yesterday per cardiology. 3. Hydralazine as needed for systolic blood pressure greater than 140 4. Omeprazole for GI prophylaxis 5. Heparin by weight 6. CBC, BMP in a.m. Digitally Signed by LUIS IRELAND on 04/24/2024 06:[address] [facility] [id number] Note Date of Service 04/24/2024 Subjective Mr. Cardoso is a 68-year-old male with a past medical history of coronary artery disease status post PCI (LAD 04/19/24), left carotid stenosis, hyperlipidemia, previous subdural hematoma status post trauma, obstructive sleep apnea with inspire therapy, activity induced asthma, prediabetes, Thorne, GERD status post laparoscopic Niesen fundoplication, anxiety, major depressive disorder. Underwent heart cath on 04/19/2024 and had drug-eluting sten placed to the LAD. Discharged on Aspirin and Effient. He was discharged home after his stent placement and started to complain of a headache. He presented to the [facility] emergency department on 04/20 with altered mental status. CT of the head showed a 4.7 cm right parietal intraparenchymal hematoma with intraventricular extension and trace subarachnoid hemorrhage. Initial blood pressure 165/93. Started on Cardene and Royal placed. Currently only on Losartan 25mg daily. Given 1 unit Platlets on admission due to dual antiplatelet therapy. HBWstarted 04/21 @ 1400 goal aptt 40-50. Follow-up CT's on 04/21, 04/22, 04/23 have been stable. 24-hour summary Continues to have headaches. Tramadol switched to Victor yesterday. Metoprolol discontinued yesterday as patient has been bradycardic. 2 doses of as needed Apresoline overnight. Plan is to start 1 antiplatelet agent today with CT of the head in am and then repeat in 2 weeks before starting a second antiplatlet agent. Objective Vitals and Measurements T: 36.9 C (Oral) TMIN: 36.8 C (Oral) TMAX: 37.3 C (Oral) HR: 64 (Monitored) RR: 14 BP: 139/80 SpO2:93% Intake and Output 7AM Yesterday to 7AM Today Intake and Output (Last 24 hours) Intake Administration Information 169.12 Oral Intake 750.00 Output Urinary Catheter Output: 850.00 Stool Count 0.00 Total Summary Total Intake 919.12 Total Output 850.00 Fluid Balance 69.12 Physical Exam General: Alert, in no acute distress Head: Normocephalic, atraumatic ENT: PERRLA, eyes: Sclera nonicteric, oral: Mucous membranes moist, Neck: Supple, no JVD Cardiac: Regular rate and rhythm, normal S1-S2, no murmur, rubs, or gallops Respiratory: Lungs clear, respirations easy Abdomen: Soft, nontender, normoactive bowel sounds Musculoskeletal: No joint deformities, no muscle tenderness Extremities: 2+ pulses, no pedal edema Neurological: Alert and oriented x3, mild left arm weakness Skin: Warm and dry, no rash Weight Dosing Weight: 88.1 kg (04/20/24) Medications Medications (12) Active Scheduled: (3) atorvastatin 40 mg tablet 40 mg 1 tab(s), Oral, qDay losartan 25 mg tablet 25 mg 1 tab(s), Oral, qDay omeprazole [address] capsule 20 mg 1 cap(s), Oral, qDayAC Continuous: (1) heparin 51144 unit(s) [11.35 unit(s)/kg/hr] + Dextrose 5% Premix Diluent 250 mL 250 mL, Intravenous, 10 mL/hr PRN: (8) acetaminophen 500 mg Tablet 1,000 mg 2 tab(s), Oral, q6hr acetaminophen-HYDROcodone 325-5 mg tablet 1 tab(s), Oral, q4h acetaminophen-HYDROcodone 325-5 mg tablet 2 tab(s), Oral, q4h diazepam 5 mg tablet 5 mg 1 tab(s), Oral, TID docusate sodium 100 mg Capsule 100 mg 1 cap(s), Oral, BID hydralazine 20 mg/mL (1mL) vial 10 mg 0.5 mL, IV Push, q2h magnesium hydroxide 8% Suspension 30 mL UD 30 mL, Oral, qHS ondansetron 2 mg/ 1 mL 2 mL INJ 4 mg 2 mL, IV Push, q4h Lab Results 04/23 04:06 WBC: 11.2 H Hgb: 12.3 L Hct: 37.2 L Platelet: 231 Neutrophil %: 79.7 H Glucose Level: 118 H Sodium Level: 140 Potassium Level: 3.8 BUN: 21.0 Creatinine Lvl (s): 0.90 EKG EKG - Completed -- 04/22/24 1:56:00 EDT Assessment/Plan Assessment 1. Right parietal intraparenchymal hemorrhage with intraventricular extension and trace subarachnoid hemorrhage on aspirin and Effient 2. Coronary artery disease status post PCI with drug-eluting stent to LAD on 04/19/2024 3. Leukocytosis, most likely reactive to intraparenchymal hemorrhage/subarachnoid hemorrhage, improving 4. Underlying history of neuroendocrine syncope, secondary AV block, TARIK, prediabetes and nonalcoholic hepatosteatosis, GERD, anxiety and depression Plan 1 continue to monitor in the ICU with frequent neurochecks. Plan is to initiate 1 antiplatelet therapy today with repeat CT of the head tomorrow morning per neurosurgery 2. Continue losartan 25 mg daily. Metoprolol was stopped yesterday per cardiology. 3. Hydralazine as needed for systolic blood pressure greater than 140 4. Omeprazole for GI prophylaxis 5. Heparin by weight 6. CBC, BMP in a.m. Digitally Signed by LUIS IRELAND on 04/24/2024 06:[address] [facility] [id number] Note ORIGINAL EXAMINATION: CT OF THE HEAD WITHOUT CONTRAST 04/23/2024 11:50 am TECHNIQUE: CT of the head was performed without the administration of intravenous contrast. Automated exposure control, iterative reconstruction, and/or weight based adjustment of the mA/kV was utilized to reduce the radiation dose to as low as reasonably achievable. COMPARISON: April 22, 2024 HISTORY: ORDERING SYSTEM PROVIDED HISTORY: Reason for Exam: severe headache, IPH on heparin by weight FINDINGS: Lobulated mucosal thickening is evident within the left maxillary sinus. No calvarial abnormality seen. Right parieto-occipital parenchymal hemorrhage is again identified, and the appearance is very similar to the previous study. The bulk of the lesion is on the order of 4 cm, previously 4.2 cm. Surrounding white matter hypodensity is most compatible with vasogenic edema. Mild local mass effect is evident. This includes sulcal effacement. A small amount of subarachnoid blood is evident at the parietal regions bilaterally and this is similar to the previous study. No new area of hemorrhage is identified on this exam. No other interval change is evident. IMPRESSION: Intracranial hemorrhage is very similar to the previous exam including mild local mass effect. Interpreted by: Luis Beaulieu MD Preliminary Report By: Luis Beaulieu MD Electronically signed By Luis Beaulieu MD Dictated Date: 04/23/2024 11:56:54 AM Prelim Date: 04/23/2024 12:00:03 PM Sign Date: 04/23/2024 12:00:03 PM Ordering Provider: [facility]09-08-2024 Note Date of Service 04/23/2024 Eugenia Cardoso is a 68-year-old male with a past medical history of coronary artery disease status post PCI, left carotid stenosis, hyperlipidemia, previous subdural hematoma status post trauma, obstructive sleep apnea with inspire therapy, activity induced asthma, prediabetes, Thorne, GERD status post laparoscopic Niesen fundoplication, anxiety major depressive disorder who most recently underwent a nuclear med stress test and heart cath for which a drug- eluting stent was placed to his LAD on 04/19/2024 on aspirin and Effient . He was discharged home after his stent placement and started to complain of a headache. He presented to the [facility] emergency department on 04/20 with altered mental status. CT of the head wascompleted and showed a right parietal intraparenchymal hematoma with intraventricular extension andtrace subarachnoid hemorrhage. Initially the patient was hypertensive requiring nicardipine drip and arterial line placement. HBW intiated 04/21 @ 1400 goal aptt 40-50. CT post HBW stable without increase in hemorrhage size. He was transfused 1 unit of platelets given his platelet function of 6% on admission with follow-up platelet function and 20% 24 hour summary He remains alert and oriented on room air and hemodynamically stable. His blood pressure has been well-controlled with the addition of his home ARB Cozaar 25 mg p.o. daily. He complains of significant headache overnight and has received multiple doses of morphine Victor Tylenol and tramadol over thelast 24 hours without much relief. He remains restless. Per neurosurgery the plan is to continue heparin by weight infusion and initiate antiplatelet (Plavix versus Effient) tomorrow morning with a repeat head CT Wednesday morning Objective Vitals and Measurements T: 37.0 C (Oral) TMIN: 36.6 C (Oral) TMAX: 37.0 C (Oral) HR: 58 (Monitored) RR: 15 BP: 138/68 BP: 138/78(Line) SpO2: 96% Intake and Output 7AM Yesterday to 7AM Today Intake and Output (Last 24 hours) Intake Administration Information 240.62 Oral Intake 1240.00 Output Urinary Catheter Output: 1025.00 Stool Count 0.00 Total Summary Total Intake 1480.62 Total Output 1025.00 Fluid Balance 455.62 Physical Exam General: Alert, no acute distress -restless at times HEENT: Normocephalic, atraumatic, PERRLA, sclera nonicteric mucous membranes moist, trachea midline Neck: No JVD, no adenopathy, supple Cardiac: Bradycardic but regular rhythm-intermittent Mobitz block, normal S1-S2, no murmur rubs or gallops. Respiratory: Lungs diminished bilaterally, No rales, rhonchi, or wheezes. Respirations easy and unlabored Abdomen: Soft, nondistended, no organomegaly, no tenderness or rigidity, normoactive bowel sounds Extremities: No pedal edema, no cyanosis, palpable pulses bilaterally Musculoskeletal: No joint deformities, no muscle tenderness Neurological: alert and oriented x3, no focal deficits. Skin: warm and dry, no rashes or ulcerations. No lesions or petechiae Weight Dosing Weight: 88.1 kg (04/20/24) Medications Medications (15) Active Scheduled: (5) atorvastatin 40 mg tablet 40 mg 1 tab(s), Oral, qDay insulin regular human recombinant 100 units/ml (10 mL) Solution Give 0-5 units/dose, Subcutaneous, achs losartan 25 mg tablet 25 mg 1 tab(s), Oral, qDay metoprolol succinate 25 mg ER tablet 12.5 mg 0.5 tab(s), Oral, BIDM omeprazole [address] capsule 20 mg 1 cap(s), Oral, qDayAC Continuous: (1) heparin 30173 unit(s) [11.35 unit(s)/kg/hr] + Dextrose 5% Premix Diluent 250 mL 250 mL, Intravenous, 10 mL/hr PRN: (9) acetaminophen 500 mg Tablet 1,000 mg 2 tab(s), Oral, q6hr docusate sodium 100 mg Capsule 100 mg 1 cap(s), Oral, BID hydralazine 20 mg/mL (1mL) vial 10 mg 0.5 mL, IV Push, q2h magnesium hydroxide 8% Suspension 30 mL UD 30 mL, Oral, qHS morphine 2 mg/mL 1 mL syringe 1 mg 0.5 mL, IV Push, q3h morphine 2 mg/mL 1 mL syringe 2 mg 1 mL, IV Push, q3h ondansetron 2 mg/ 1 mL 2 mL INJ 4 mg 2 mL, IV Push, q4h tramadol 50 mg Tablet 50 mg 1 tab(s), Oral, q4h tramadol 50 mg Tablet 100 mg 2 tab(s), Oral, q4h Lab Results 04/23 04:06 WBC: 11.2 H Hgb: 12.3 L Hct: 37.2 L Platelet: 231 Neutrophil %: 79.7 H Glucose Level: 118 H Sodium Level: 140 Potassium Level: 3.8 BUN: 21.0 Creatinine Lvl (s): 0.90 04/22 02:39 WBC: 12.8 H Hgb: 12.4 L Hct: 37.6 L Platelet: 247 Neutrophil %: 83.4 H Glucose Level: 129 H Sodium Level: 141 Potassium Level: 4.2 BUN: 21.0 Creatinine Lvl (s): 0.96 EKG No qualifying data available. Assessment/Plan 1. Right parietal intraparenchymal hematoma with intraventricular extension and trace subarachnoid hemorrhage on aspirin and Effient 2. CAD status post PCI with drug-eluting stent to LAD on 04/19/2024 on aspirin and Prasugrel 3. Leukocytosis, most like reactive to IPH/SAH, improving 4. History of neurocardiogenic syncope, second-degree AV block, TARIK, prediabetes and nonalcoholic hepatosteatosis, GERD, anxiety and depression 5. GI prophylaxis 6. DVT prophylaxis 7. CODE STATUS Plan: 1. Continue to monitor with frequent neurologic checks. Plan to initiate antiplatelet Plavix versusEffient tomorrow morning with a repeat head CT Wednesday morning per neurosurgery 2. Hydralazine as needed to maintain systolic blood pressure below 140 has required 1 dose in the past 24 hours 3. Continue metoprolol tartrate twice daily with a hold HR of 60 dose decreased yesterday to 12.5 mg 4. Continue Cozaar 25 mg p.o. daily 5. On home dose of omeprazole for GI prophylaxis 6. SCDs for DVT prophylaxis, heparin by weight 7. CBC, BMP 8. FULL CODE Time Spent the above assessment and plan has been discussed with Dr. Sarkar please see his addendum for further plan of care Digitally Signed by YUMIKO DUNN on 04/23/2024 06:[address] [facility] [id number] Progress note Date of Service April 23, 2024 Chief Complaint Intracranial hemorrhage Subjective No acute overnight events, patient complaining of headache, was started on Victor after tramadol wasunsuccessful. Tramadol made him feel confused and loopy, did not have those effects with the Victor. Objective Vitals and Measurements T: 37.0 C (Oral) TMIN: 36.6 C (Oral) TMAX: 37.0 C (Oral) HR: 60 (Monitored) RR: 10 BP: 135/71 SpO2:93% Intake and Output 7AM Yesterday to 7AM Today Intake and Output (Last 24 hours) Intake Administration Information 240.62 Oral Intake 1240.00 Output Urinary Catheter Output: 1025.00 Stool Count 0.00 Total Summary Total Intake 1480.62 Total Output 1025.00 Fluid Balance 455.62 Physical Exam Awake alert oriented x 3, moving all extremities well. No paresthesias or decrease sensation. Left homonymous hemianopsia. Weight Dosing Weight: 88.1 kg (04/20/24) Medications Medications (15) Active Scheduled: (5) atorvastatin 40 mg tablet 40 mg 1 tab(s), Oral, qDay insulin regular human recombinant 100 units/ml (10 mL) Solution Give 0-5 units/dose, Subcutaneous, achs losartan 25 mg tablet 25 mg 1 tab(s), Oral, qDay metoprolol succinate 25 mg ER tablet 12.5 mg 0.5 tab(s), Oral, BIDM omeprazole [address] capsule 20 mg 1 cap(s), Oral, qDayAC Continuous: (1) heparin 33016 unit(s) [11.35 unit(s)/kg/hr] + Dextrose 5% Premix Diluent 250 mL 250 mL, Intravenous, 10 mL/hr PRN: (9) acetaminophen 500 mg Tablet 1,000 mg 2 tab(s), Oral, q6hr docusate sodium 100 mg Capsule 100 mg 1 cap(s), Oral, BID hydralazine 20 mg/mL (1mL) vial 10 mg 0.5 mL, IV Push, q2h magnesium hydroxide 8% Suspension 30 mL UD 30 mL, Oral, qHS morphine 2 mg/mL 1 mL syringe 1 mg 0.5 mL, IV Push, q3h morphine 2 mg/mL 1 mL syringe 2 mg 1 mL, IV Push, q3h ondansetron 2 mg/ 1 mL 2 mL INJ 4 mg 2 mL, IV Push, q4h tramadol 50 mg Tablet 50 mg 1 tab(s), Oral, q4h tramadol 50 mg Tablet 100 mg 2 tab(s), Oral, q4h Lab Results 04/23 04:06 WBC: 11.2 H Hgb: 12.3 L Hct: 37.2 L Platelet: 231 Neutrophil %: 79.7 H Glucose Level: 118 H Sodium Level: 140 Potassium Level: 3.8 BUN: 21.0 Creatinine Lvl (s): 0.90 04/22 02:39 WBC: 12.8 H Hgb: 12.4 L Hct: 37.6 L Platelet: 247 Neutrophil %: 83.4 H Glucose Level: 129 H Sodium Level: 141 Potassium Level: 4.2 BUN: 21.0 Creatinine Lvl (s): 0.96 EKG No qualifying data available. Assessment/Plan Essential hypertension Blood pressure is controlled, patient on heparin for his stent. Last CT scan done did not show any worsening of hemorrhage. Plan is to convert to oral medication tomorrow and get a CT scan of the head on Wednesday. I am opposed to any loading dose of either Plavix, Effient etc. I would also be opposed to a dual antiplatelet agent at this time. I would rather stage him with a single antiplatelet agent tomorrow, get a scan in 2 weeks time, if the majority the hemorrhage has resolved, then he can start a dual antiplatelet therapy at that time. Mixed hyperlipidemia Orders: APTT, 04/23/24 13:00:00 EDT, Timed Study (collect at specified time), Blood, Once, Preferred Lab: [facility], Stop date 04/23/24 13:00:00 EDT Digitally Signed by DAVID RYDER MD on 04/23/2024 07:[address] [facility] [id number] Note Date of Service 04/23/2024 Subjective Tracy Cardoso is a 68-year-old male with a past medical history of coronary artery disease status post PCI, left carotid stenosis, hyperlipidemia, previous subdural hematoma status post trauma, obstructive sleep apnea with inspire therapy, activity induced asthma, prediabetes, Thorne, GERD status post laparoscopic Niesen fundoplication, anxiety major depressive disorder who most recently underwent a nuclear med stress test and heart cath for which a drug- eluting stent was placed to his LAD on 04/19/2024 on aspirin and Effient . He was discharged home after his stent placement and started to complain of a headache. He presented to the [facility] emergency department on 04/20 with altered mental status. CT of the head wascompleted and showed a right parietal intraparenchymal hematoma with intraventricular extension andtrace subarachnoid hemorrhage. Initially the patient was hypertensive requiring nicardipine drip and arterial line placement. HBW intiated 04/21 @ 1400 goal aptt 40-50. CT post HBW stable without increase in hemorrhage size. He was transfused 1 unit of platelets given his platelet function of 6% on admission with follow-up platelet function and 20% 24 hour summary He remains alert and oriented on room air and hemodynamically stable. His blood pressure has been well-controlled with the addition of his home ARB Cozaar 25 mg p.o. daily. He complains of significant headache overnight and has received multiple doses of morphine Victor Tylenol and tramadol over thelast 24 hours without much relief. He remains restless. Per neurosurgery the plan is to continue heparin by weight infusion and initiate antiplatelet (Plavix versus Effient) tomorrow morning with a repeat head CT Wednesday morning Objective Vitals and Measurements T: 37.0 C (Oral) TMIN: 36.6 C (Oral) TMAX: 37.0 C (Oral) HR: 58 (Monitored) RR: 15 BP: 138/68 BP: 138/78(Line) SpO2: 96% Intake and Output 7AM Yesterday to 7AM Today Intake and Output (Last 24 hours) Intake Administration Information 240.62 Oral Intake 1240.00 Output Urinary Catheter Output: 1025.00 Stool Count 0.00 Total Summary Total Intake 1480.62 Total Output 1025.00 Fluid Balance 455.62 Physical Exam General: Alert, no acute distress -restless at times HEENT: Normocephalic, atraumatic, PERRLA, sclera nonicteric mucous membranes moist, trachea midline Neck: No JVD, no adenopathy, supple Cardiac: Bradycardic but regular rhythm-intermittent Mobitz block, normal S1-S2, no murmur rubs or gallops. Respiratory: Lungs diminished bilaterally, No rales, rhonchi, or wheezes. Respirations easy and unlabored Abdomen: Soft, nondistended, no organomegaly, no tenderness or rigidity, normoactive bowel sounds Extremities: No pedal edema, no cyanosis, palpable pulses bilaterally Musculoskeletal: No joint deformities, no muscle tenderness Neurological: alert and oriented x3, no focal deficits. Skin: warm and dry, no rashes or ulcerations. No lesions or petechiae Weight Dosing Weight: 88.1 kg (04/20/24) Medications Medications (15) Active Scheduled: (5) atorvastatin 40 mg tablet 40 mg 1 tab(s), Oral, qDay insulin regular human recombinant 100 units/ml (10 mL) Solution Give 0-5 units/dose, Subcutaneous, achs losartan 25 mg tablet 25 mg 1 tab(s), Oral, qDay metoprolol succinate 25 mg ER tablet 12.5 mg 0.5 tab(s), Oral, BIDM omeprazole [address] capsule 20 mg 1 cap(s), Oral, qDayAC Continuous: (1) heparin 11677 unit(s) [11.35 unit(s)/kg/hr] + Dextrose 5% Premix Diluent 250 mL 250 mL, Intravenous, 10 mL/hr PRN: (9) acetaminophen 500 mg Tablet 1,000 mg 2 tab(s), Oral, q6hr docusate sodium 100 mg Capsule 100 mg 1 cap(s), Oral, BID hydralazine 20 mg/mL (1mL) vial 10 mg 0.5 mL, IV Push, q2h magnesium hydroxide 8% Suspension 30 mL UD 30 mL, Oral, qHS morphine 2 mg/mL 1 mL syringe 1 mg 0.5 mL, IV Push, q3h morphine 2 mg/mL 1 mL syringe 2 mg 1 mL, IV Push, q3h ondansetron 2 mg/ 1 mL 2 mL INJ 4 mg 2 mL, IV Push, q4h tramadol 50 mg Tablet 50 mg 1 tab(s), Oral, q4h tramadol 50 mg Tablet 100 mg 2 tab(s), Oral, q4h Lab Results 04/23 04:06 WBC: 11.2 H Hgb: 12.3 L Hct: 37.2 L Platelet: 231 Neutrophil %: 79.7 H Glucose Level: 118 H Sodium Level: 140 Potassium Level: 3.8 BUN: 21.0 Creatinine Lvl (s): 0.90 04/22 02:39 WBC: 12.8 H Hgb: 12.4 L Hct: 37.6 L Platelet: 247 Neutrophil %: 83.4 H Glucose Level: 129 H Sodium Level: 141 Potassium Level: 4.2 BUN: 21.0 Creatinine Lvl (s): 0.96 EKG No qualifying data available. Assessment/Plan 1. Right parietal intraparenchymal hematoma with intraventricular extension and trace subarachnoid hemorrhage on aspirin and Effient 2. CAD status post PCI with drug-eluting stent to LAD on 04/19/2024 on aspirin and Prasugrel 3. Leukocytosis, most like reactive to IPH/SAH, improving 4. History of neurocardiogenic syncope, second-degree AV block, TARIK, prediabetes and nonalcoholic hepatosteatosis, GERD, anxiety and depression 5. GI prophylaxis 6. DVT prophylaxis 7. CODE STATUS Plan: 1. Continue to monitor with frequent neurologic checks. Plan to initiate antiplatelet Plavix versusEffient tomorrow morning with a repeat head CT Wednesday morning per neurosurgery 2. Hydralazine as needed to maintain systolic blood pressure below 140 has required 1 dose in the past 24 hours 3. Continue metoprolol tartrate twice daily with a hold HR of 60 dose decreased yesterday to 12.5 mg 4. Continue Cozaar 25 mg p.o. daily 5. On home dose of omeprazole for GI prophylaxis 6. SCDs for DVT prophylaxis, heparin by weight 7. CBC, BMP 8. FULL CODE Time Spent the above assessment and plan has been discussed with Dr. Sarkar please see his addendum for further plan of care Digitally Signed by YUMIKO DUNN on 04/23/2024 06:[address] [id number] Progress note Date of Service April 22, 2024 Chief Complaint Intracranial hemorrhage Subjective No acute overnight events Objective Complaining of mild headache Intake and Output 7AM Yesterday to 7AM Today Intake and Output (Last 24 hours) Intake Administration Information 1453.83 Oral Intake 630.00 Output Urinary Catheter Output: 1250.00 Stool Count 0.00 Total Summary Total Intake 2083.83 Total Output 1250.00 Fluid Balance 833.83 Physical Exam Left him on his hemianopsia. Otherwise awake alert oriented x 3 moving all extremities well. No sensory deficits. Weight Dosing Weight: 88.1 kg (04/20/24) Medications Medications (14) Active Scheduled: (4) atorvastatin 40 mg tablet 40 mg 1 tab(s), Oral, qDay insulin regular human recombinant 100 units/ml (10 mL) Solution Give 0-5 units/dose, Subcutaneous, achs metoprolol tartrate 50 mg tablet 50 mg 1 tab(s), Oral, BIDM omeprazole [address] capsule 20 mg 1 cap(s), Oral, qDayAC Continuous: (1) heparin 46124 unit(s) [11.35 unit(s)/kg/hr] + Dextrose 5% Premix Diluent 250 mL 250 mL, Intravenous, 10 mL/hr PRN: (9) acetaminophen 500 mg Tablet 1,000 mg 2 tab(s), Oral, q6hr docusate sodium 100 mg Capsule 100 mg 1 cap(s), Oral, BID hydralazine 20 mg/mL (1mL) vial 10 mg 0.5 mL, IV Push, q2h magnesium hydroxide 8% Suspension 30 mL UD 30 mL, Oral, qHS morphine 2 mg/mL 1 mL syringe 1 mg 0.5 mL, IV Push, q3h morphine 2 mg/mL 1 mL syringe 2 mg 1 mL, IV Push, q3h ondansetron 2 mg/ 1 mL 2 mL INJ 4 mg 2 mL, IV Push, q4h tramadol 50 mg Tablet 50 mg 1 tab(s), Oral, q4h tramadol 50 mg Tablet 100 mg 2 tab(s), Oral, q4h Lab Results 04/22 02:39 WBC: 12.8 H Hgb: 12.4 L Hct: 37.6 L Platelet: 247 Neutrophil %: 83.4 H Glucose Level: 129 H Sodium Level: 141 Potassium Level: 4.2 BUN: 21.0 Creatinine Lvl (s): 0.96 04/21 12:30 WBC: 13.6 H Hgb: 13.3 Hct: 41.1 Platelet: 262 Neutrophil %: 87.0 H Protime: 12.4 PT International Ratio: 1.1 04/21 03:53 WBC: 14.7 H Hgb: 13.3 Hct: 40.4 Platelet: 256 Neutrophil %: 88.2 H Glucose Level: 129 H Sodium Level: 142 Potassium Level: 3.8 BUN: 23.0 H Creatinine Lvl (s): 1.08 Imaging Results and Diagnostics CT Head or Brain w/o Contrast Result Date: April 22, 2024 Verified By: DAVIN GAGNON MD CLINICAL STATEMENT: IMPRESSION: No significant interval change from previous exam. I have personally reviewed the images of this examination and agree with theresident's findings and interpretation. CT Head or Brain w/o Contrast Result Date: April 21, 2024 Verified By: HECTOR CELESTE MD CLINICAL STATEMENT: IMPRESSION: No significant change from prior exam. CT Head or Brain w/o Contrast Result Date: April 21, 2024 Verified By: DAVIN GAGNON MD CLINICAL STATEMENT: IMPRESSION: Similar appearing right parietal intraparenchymal hematoma withintraventricular extension and trace subarachnoid hemorrhage with effacementof the adjacent sulci. No midline shift. New trace left parietal subarachnoid hemorrhage. Laurence Don MD called these results to May Jaeger RN at 05:49 04/21/2024. Preliminary Report was Dictated by a Resident EKG Electrocardiogram (EKG) - InProcess -- 04/22/24 1:56:00 EDT Assessment/Plan Patient's repeat CT scan done last night as well as a CT scan done this morning shows stability in the right intraparenchymal hemorrhage as well as a left-sided traumatic subarachnoid hemorrhage. These have not changed significantly at all since him starting heparin by weight for his cardiac stent.Plan at this point time is to maintain the heparin by weight until Wednesday, start him on Plavix on Wednesday and get a head CT on Wednesday. If that head CT is stable on Wednesday then can plan for dischargewith a follow-up CT scan 2 weeks after that. Digitally Signed by DAVID RYDER MD on 04/22/2024 07:[address] [id number] Note ORIGINAL EXAMINATION: CT OF THE HEAD WITHOUT CONTRAST 04/22/2024 4:33 am TECHNIQUE: CT of the head was performed without the administration of intravenous contrast. Automated exposure control, iterative reconstruction, and/or weight based adjustment of the mA/kV was utilized to reduce the radiation dose to as low as reasonably achievable. COMPARISON: CT head 04/21/2024 and 04/20/2024. HISTORY: ORDERING SYSTEM PROVIDED HISTORY: Reason for Exam: IPH, SAH; Re-eval after HBW initiation 04/21 FINDINGS: BRAIN/VENTRICLES: Similar-appearing right parietal centered intraparenchymal hematoma with extra-axial and intraventricular extension. Similar appearing mass effect. Redemonstrated subarachnoid blood products bilaterally. There is no evidence of hydrocephalus. ORBITS: The visualized portion of the orbits demonstrate no acute abnormality. SINUSES: Mild left maxillary sinus mucosal thickening. The remaining visualized paranasal sinuses and mastoid air cells are essentially clear. SOFT TISSUES/SKULL: No acute abnormality of the visualized skull or soft tissues. IMPRESSION: No significant interval change from previous exam. I have personally reviewed the images of this examination and agree with the resident's findings and interpretation. Interpreted by: Davin Gagnon MD Preliminary Report By: Laurence Don Electronically signed By Davin Gagnon MD Dictated Date: 04/22/2024 4:57:38 AM Prelim Date: 04/22/2024 5:03:51 AM Sign Date: 04/22/2024 6:33:55 AM Ordering Provider: DEBBI [facility]09-07-2024 NoteIncomplete analysis due to missing data in precordial lead(s) SINUS RHYTHM WITH 2ND DEGREE AV BLOCK, MOBITZ TYPE II Missing lead(s): V3 Electronic Signature: ALISE MCCOLLUM MD 04/23/2024 13:26:13[facility] 09-06-2024 Note ORIGINAL EXAMINATION: CT OF THE HEAD WITHOUT CONTRAST 04/21/2024 8:21 pm TECHNIQUE: CT of the head was performed without the administration of intravenous contrast. Automated exposure control, iterative reconstruction, and/or weight based adjustment of the mA/kV was utilized to reduce the radiation dose to as low as reasonably achievable. COMPARISON: CT head performed same day. HISTORY: ORDERING SYSTEM PROVIDED HISTORY: Reason for Exam: HEADACHE, KNOWN ICH, increased headache, brain bleed FINDINGS: BRAIN/VENTRICLES: No significant change to the right parietal lobe centered intraparenchymal hematoma with extra-axial and intraventricular extension. Similar appearing mass effect. Redemonstrated subarachnoid blood products bilaterally. Similar ventricular caliber. ORBITS: The visualized portion of the orbits demonstrate no acute abnormality. SINUSES: The visualized paranasal sinuses and mastoid air cells demonstrate no acute abnormality. SOFT TISSUES/SKULL: No acute abnormality of the visualized skull or soft tissues. IMPRESSION: No significant change from prior exam. Interpreted by: Hector Celeste Preliminary Report By: Hector Celeste Electronically signed By Hector Celeste Dictated Date: 04/21/2024 8:22:50 PM Prelim Date: 04/21/2024 8:30:51 PM Sign Date: 04/21/2024 8:30:51 PM Ordering Provider: [facility]09-06-2024 Note Date of Service 04/21/2024 Split/shared visit with Dr Ryder Neurosurgery CC: Right parietal IPH with intraventricular extension This is a 68-year-old male with a past medical history significant for HTN, HLD, TARIK, prediabetes, GERD, CAD s/p stent to proximal LAD on 04/19/[address] Casper who presented to [facility] ED the morning of 04/20/24 with concerns of confusion and headache. Reported onset of headache prior to going to bed evening of 04/19. Awoke with headache was noted to have difficulty with morning tasks, and had confusion. He c/o not feeling right; Symptoms prompted evaluation in the ED. In [place] ED, a noncontrasted head CT was obtained and demonstrated a 4.7 cm right parietal intraparenchymal hemorrhage with extension into the right lateral ventricle. Also had surrounding edema, but without significant shift of midline structures. Patient was found to be hypertensive with SBP 146-161 mmHg. Case was discussed with Dr. Ryder, as well as Dr. Casper by ED physician. For the stent procedure on 04/19, it is documented that patient received 325 mg aspirin, 60 mg of Effient, and 14,000 units of heparin. He was discharged with prescriptions for aspirin and Effient, however his provided thesehad not been picked up yet. Given that patient had stent placed yesterday, it was decided to hold all antiplatelet medications and avoid DDAVP in order to lessen the chance of acute stent thrombosis. Dr. Ryder ordered 1 unit of platelets. Patient admitted to SICU under Dr. Ryder service with consultation to box estimator team and cardiology. Did require nicardipine drip for management of hypertension, titrated up to max dose. Though was able to be off around midnight. Has also received 6 doses of IV hydralazine over the last 24 hours. Since midnight, SBP has remained less than 140mmHg. No acute events overnight. This morning, patient is seen lying in bed. He is positioned on his right side. He is awake and alert. Answers orientation questions appropriately. Keeps eyes open throughout exam. Does not make eye contact voluntarily. With instruction, was able to then make contact withmy face. States headache is less severe than when he presented to the hospital. Speech is clear andfluent, no dysarthria. Tongue protrudes midline. Face is symmetric. Right/left differentiation is intact. Though has notable left-sided visual field neglect bilaterally. + Left homonymous hemianopsia. With EOMI testing, eyes do not follow my finger to the left, and cannot identify fingers being held up at this time. Pupils are equal, and react to light testing bilaterally. Denies nausea and vomiting this morning, acute paresthesias or acute weakness. He moves all 4 extremities well, and has strong/equal motor strength of bilateral upper and lower extremities. Light touch sensation is intact equally in face, upper and lower extremities. Objective Vitals and Measurements T: 36.8 C (Oral) TMIN: 36.5 C (Oral) TMAX: 36.9 C (Oral) HR: 91 (Apical) RR: 22 BP: 160/54 BP: 122/53(Line) SpO2: 96% HT: 167 cm WT: 88.1 kg BMI: 31.59 Intake and Output 7AM Yesterday to 7AM Today Intake and Output (Last 24 hours) Intake Platelets Amount Transfused 250.00 Oral Intake 25.00 Administration Information 1565.00 Output Urinary Catheter Output: 600.00 Stool Count 0.00 Total Summary Total Intake 1840.00 Total Output 600.00 Fluid Balance 1240.00 Physical Exam Abdomen is soft. Bowel sounds present throughout. Lungs are clear bilaterally. Respirations unlabored and even Regular heart rate and rhythm. S1-S2 present. Weight Dosing Weight: 88.1 kg (04/20/24) Medications Medications (16) Active Scheduled: (3) atorvastatin 40 mg tablet 40 mg 1 tab(s), Oral, qDay metoprolol tartrate 50 mg tablet 50 mg 1 tab(s), Oral, BIDM omeprazole [address] capsule 20 mg 1 cap(s), Oral, qDayAC Continuous: (3) insulin regular 100 unit(s) + NS Premix Diluent 100 mL 100 mL, Intravenous nicardipine PMX 20 mg [5 mg/hr] + NS Premix Diluent 200 mL 200 mL, Intravenous, 50 mL/hr NS (0.9% nacl) 1,000 mL 1,000 mL, Intravenous, 50 mL/hr PRN: (10) acetaminophen 500 mg Tablet 1,000 mg 2 tab(s), Oral, q6hr acetaminophen PMX 1,000 mg 100 mL, IV Piggyback, q6h dextrose 50% Solution Disp syringe 50 mL 25 g 50 mL, IV Push, AsDirected docusate sodium 100 mg Capsule 100 mg 1 cap(s), Oral, BID hydralazine 20 mg/mL (1mL) vial 10 mg 0.5 mL, IV Push, q2h insulin regular human recombinant 100 units/ml (10 mL) Solution sliding scale insulin, Subcutaneous, q4h magnesium hydroxide 8% Suspension 30 mL UD 30 mL, Oral, qHS morphine 2 mg/mL 1 mL syringe 1 mg 0.5 mL, IV Push, q3h morphine 2 mg/mL 1 mL syringe 2 mg 1 mL, IV Push, q3h ondansetron 2 mg/ 1 mL 2 mL INJ 4 mg 2 mL, IV Push, q4h Lab Results 04/21 03:53 WBC: 14.7 H Hgb: 13.3 Hct: 40.4 Platelet: 256 Neutrophil %: 88.2 H Glucose Level: 129 H Sodium Level: 142 Potassium Level: 3.8 BUN: 23.0 H Creatinine Lvl (s): 1.08 EKG No qualifying data available. Assessment/Plan Right parietal IPH with IV extension Had very recent heart cath and stent placement to proximal LAD 04/19/2024; for the procedure [id number] mg aspirin, 60 mg of Effient, and 14,000 units of heparin. Was discharged home with prescription for 81 mg aspirin and 10 mg Effient daily, though stated these medications had not yet been picked up. Patient developed headache the evening of 04/19, awoke the next day with headache and confusion. Was brought to [place] ED 04/20/[address] demonstrated a 4.7 cm right parietal intraparenchymal hemorrhage with extension into the right lateral ventricle. Surrounding edema present, but without significant shift of midline structures. Also found to be hypertensive with SBP 146-161 mmHg. Patient given 1 unit of platelets. Admitted to SICU where he currently remains. Student Services Representative and cardiology following. Repeat head CT this morning Was obtained, and reviewed with Dr. Ryder. Findings show stable right parietal intraparenchymal hemorrhage with intraventricular extension, small amount of adjacent subarachnoid hemorrhage of the right parietal lobe, unchanged from initial CT. No hydrocephalus. Has new trace left parietal SAH. Continue close monitoring with frequent neuroexams and notify neurosurgery promptly with any acute changes or concerns At present time, no neurosurgical intervention is required. Patient may have a diet. He may also begin to mobilize and participate in PT/OT today. Maintain SBP between 120-140 mmHg. IV Tylenol and IV morphine ordered for pain control, as well as IV Zofran ordered for nausea. Coagulopathy secondary to aspirin and Effient use Recent stent to LAD 04/19/2024 Dr. Casper notified of patient's admission; cardiology following. Patient received 1 unit of platelets; antiplatelet medications have been placed on hold. Will need to formulate a reasonable plan regarding restarting AC/AP agents when safe for patient; Dr. Ryder provides could consider starting heparin by weight without bolus, and goal PTT 40 50 will closely monitoring patient clinically and with serial head CT imaging, especially also in light of patient's hypertension. If cardiology feels heparin needs to be started as early as today, then would re peat head CT at 4 PM this afternoon, and again tomorrow morning. Platelet function is still low, this morning found at 20% Hypertension Found to be hypertensive in the ED with SBP 146-161 mmHg. Required nicardipine drip for treatment of hypertension, which had been titrated up to max dose. This was able to be weaned off around midnight. Has received 6 doses of as needed IV hydralazine over the last 24 hours. Is on metoprolol 50 mg twice daily. Since midnight, SBP has remained less than 140 mmHg. Goal SBP 120-140 mmHg DVT prophylaxis: SCDs to bilateral lower extremities at all times while in bed. Please refer to Dr. Ryder's addendum for additional information and details regarding neurosurgical input and plan of care. Anticipated Date of Discharge Unknown Digitally Signed by DEBBI MOSELEY on 04/21/2024 10:06 AM Digitally Signed by DEBBI MOSELEY on 04/21/2024 10:[address] [facility] [id number] Note Date of Service 04/21/2024 Split/shared visit with Dr Ryder Neurosurgery CC: Right parietal IPH with intraventricular extension This is a 68-year-old male with a past medical history significant for HTN, HLD, TARIK, prediabetes, GERD, CAD s/p stent to proximal LAD on 04/19/[address] Casper who presented to [facility] ED the morning of 04/20/24 with concerns of confusion and headache. Reported onset of headache prior to going to bed evening of 04/19. Awoke with headache was noted to have difficulty with morning tasks, and had confusion. He c/o not feeling right; Symptoms prompted evaluation in the ED. In [place] ED, a noncontrasted head CT was obtained and demonstrated a 4.7 cm right parietal intraparenchymal hemorrhage with extension into the right lateral ventricle. Also had surrounding edema, but without significant shift of midline structures. Patient was found to be hypertensive with SBP 146-161 mmHg. Case was discussed with Dr. Ryder, as well as Dr. Casper by ED physician. For the stent procedure on 04/19, it is documented that patient received 325 mg aspirin, 60 mg of Effient, and 14,000 units of heparin. He was discharged with prescriptions for aspirin and Effient, however his provided thesehad not been picked up yet. Given that patient had stent placed yesterday, it was decided to hold all antiplatelet medications and avoid DDAVP in order to lessen the chance of acute stent thrombosis. Dr. Ryder ordered 1 unit of platelets. Patient admitted to SICU under Dr. Ryder service with consultation to box estimator team and cardiology. Did require nicardipine drip for management of hypertension, titrated up to max dose. Though was able to be off around midnight. Has also received 6 doses of IV hydralazine over the last 24 hours. Since midnight, SBP has remained less than 140mmHg. No acute events overnight. This morning, patient is seen lying in bed. He is positioned on his right side. He is awake and alert. Answers orientation questions appropriately. Keeps eyes open throughout exam. Does not make eye contact voluntarily. With instruction, was able to then make contact withmy face. States headache is less severe than when he presented to the hospital. Speech is clear andfluent, no dysarthria. Tongue protrudes midline. Face is symmetric. Right/left differentiation is intact. Though has notable left-sided visual field neglect bilaterally. + Left homonymous hemianopsia. With EOMI testing, eyes do not follow my finger to the left, and cannot identify fingers being held up at this time. Pupils are equal, and react to light testing bilaterally. Denies nausea and vomiting this morning, acute paresthesias or acute weakness. He moves all 4 extremities well, and has strong/equal motor strength of bilateral upper and lower extremities. Light touch sensation is intact equally in face, upper and lower extremities. Objective Vitals and Measurements T: 36.8 C (Oral) TMIN: 36.5 C (Oral) TMAX: 36.9 C (Oral) HR: 91 (Apical) RR: 22 BP: 160/54 BP: 122/53(Line) SpO2: 96% HT: 167 cm WT: 88.1 kg BMI: 31.59 Intake and Output 7AM Yesterday to 7AM Today Intake and Output (Last 24 hours) Intake Platelets Amount Transfused 250.00 Oral Intake 25.00 Administration Information 1565.00 Output Urinary Catheter Output: 600.00 Stool Count 0.00 Total Summary Total Intake 1840.00 Total Output 600.00 Fluid Balance 1240.00 Physical Exam Abdomen is soft. Bowel sounds present throughout. Lungs are clear bilaterally. Respirations unlabored and even Regular heart rate and rhythm. S1-S2 present. Weight Dosing Weight: 88.1 kg (09/05/24) Medications Medications (16) Active Scheduled: (3) atorvastatin 40 mg tablet 40 mg 1 tab(s), Oral, qDay metoprolol tartrate 50 mg tablet 50 mg 1 tab(s), Oral, BIDM omeprazole [address] capsule 20 mg 1 cap(s), Oral, qDayAC Continuous: (3) insulin regular 100 unit(s) + NS Premix Diluent 100 mL 100 mL, Intravenous nicardipine PMX 20 mg [5 mg/hr] + NS Premix Diluent 200 mL 200 mL, Intravenous, 50 mL/hr NS (0.9% nacl) 1,000 mL 1,000 mL, Intravenous, 50 mL/hr PRN: (10) acetaminophen 500 mg Tablet 1,000 mg 2 tab(s), Oral, q6hr acetaminophen PMX 1,000 mg 100 mL, IV Piggyback, q6h dextrose 50% Solution Disp syringe 50 mL 25 g 50 mL, IV Push, AsDirected docusate sodium 100 mg Capsule 100 mg 1 cap(s), Oral, BID hydralazine 20 mg/mL (1mL) vial 10 mg 0.5 mL, IV Push, q2h insulin regular human recombinant 100 units/ml (10 mL) Solution sliding scale insulin, Subcutaneous, q4h magnesium hydroxide 8% Suspension 30 mL UD 30 mL, Oral, qHS morphine 2 mg/mL 1 mL syringe 1 mg 0.5 mL, IV Push, q3h morphine 2 mg/mL 1 mL syringe 2 mg 1 mL, IV Push, q3h ondansetron 2 mg/ 1 mL 2 mL INJ 4 mg 2 mL, IV Push, q4h Lab Results 04/21 03:53 WBC: 14.7 H Hgb: 13.3 Hct: 40.4 Platelet: 256 Neutrophil %: 88.2 H Glucose Level: 129 H Sodium Level: 142 Potassium Level: 3.8 BUN: 23.0 H Creatinine Lvl (s): 1.08 EKG No qualifying data available. Assessment/Plan Right parietal IPH with IV extension Had very recent heart cath and stent placement to proximal LAD 04/19/2024; for the procedure [id number] mg aspirin, 60 mg of Effient, and 14,000 units of heparin. Was discharged home with prescription for 81 mg aspirin and 10 mg Effient daily, though stated these medications had not yet been picked up. Patient developed headache the evening of 04/19, awoke the next day with headache and confusion. Was brought to [place] ED 04/20/[address] demonstrated a 4.7 cm right parietal intraparenchymal hemorrhage with extension into the right lateral ventricle. Surrounding edema present, but without significant shift of midline structures. Also found to be hypertensive with SBP 146-161 mmHg. Patient given 1 unit of platelets. Admitted to SICU where he currently remains. Student Services Representative and cardiology following. Repeat head CT this morning Was obtained, and reviewed with Dr. Ryder. Findings show stable right parietal intraparenchymal hemorrhage with intraventricular extension, small amount of adjacent subarachnoid hemorrhage of the right parietal lobe, unchanged from initial CT. No hydrocephalus. Has new trace left parietal SAH. Continue close monitoring with frequent neuroexams and notify neurosurgery promptly with any acute changes or concerns At present time, no neurosurgical intervention is required. Patient may have a diet. He may also begin to mobilize and participate in PT/OT today. Maintain SBP between 120-140 mmHg. IV Tylenol and IV morphine ordered for pain control, as well as IV Zofran ordered for nausea. Coagulopathy secondary to aspirin and Effient use Recent stent to LAD 04/19/2024 Dr. Casper notified of patient's admission; cardiology following. Patient received 1 unit of platelets; antiplatelet medications have been placed on hold. Will need to formulate a reasonable plan regarding restarting AC/AP agents when safe for patient; Dr. Ryder provides could consider starting heparin by weight without bolus, and goal PTT 40 50 will closely monitoring patient clinically and with serial head CT imaging, especially also in light of patient's hypertension. If cardiology feels heparin needs to be started as early as today, then would re peat head CT at 4 PM this afternoon, and again tomorrow morning. Platelet function is still low, this morning found at 20% Hypertension Found to be hypertensive in the ED with SBP 146-161 mmHg. Required nicardipine drip for treatment of hypertension, which had been titrated up to max dose. This was able to be weaned off around midnight. Has received 6 doses of as needed IV hydralazine over the last 24 hours. Is on metoprolol 50 mg twice daily. Since midnight, SBP has remained less than 140 mmHg. Goal SBP 120-140 mmHg DVT prophylaxis: SCDs to bilateral lower extremities at all times while in bed. Please refer to Dr. Ryder's addendum for additional information and details regarding neurosurgical input and plan of care. Anticipated Date of Discharge Unknown Digitally Signed by DEBBI MOSELEY APRN-CHIP APPLYING MACHINE TENDER on 04/21/2024 10:06 AM Digitally Signed by DEBBI MOSELEY SHOW HORSE DRIVER-CHIP APPLYING MACHINE TENDER on 04/21/2024 10:[address] [id number] Note Date of Service 04/21/2024 Split/shared visit with Dr Ryder Neurosurgery CC: Right parietal IPH with intraventricular extension This is a 68-year-old male with a past medical history significant for HTN, HLD, TARIK, prediabetes, GERD, CAD s/p stent to proximal LAD on 04/19/[address] Casper who presented to [facility] ED the morning of 04/20/24 with concerns of confusion and headache. Reported onset of headache prior to going to bed evening of 04/19. Awoke with headache was noted to have difficulty with morning tasks, and had confusion. He c/o not feeling right; Symptoms prompted evaluation in the ED. In [place] ED, a noncontrasted head CT was obtained and demonstrated a 4.7 cm right parietal intraparenchymal hemorrhage with extension into the right lateral ventricle. Also had surrounding edema, but without significant shift of midline structures. Patient was found to be hypertensive with SBP 146-161 mmHg. Case was discussed with Dr. Ryder, as well as Dr. Casper by ED physician. For the stent procedure on 04/19, it is documented that patient received 325 mg aspirin, 60 mg of Effient, and 14,000 units of heparin. He was discharged with prescriptions for aspirin and Effient, however his provided thesehad not been picked up yet. Given that patient had stent placed yesterday, it was decided to hold all antiplatelet medications and avoid DDAVP in order to lessen the chance of acute stent thrombosis. Dr. Ryder ordered 1 unit of platelets. Patient admitted to SICU under Dr. Ryder service with consultation to box estimator team and cardiology. Did require nicardipine drip for management of hypertension, titrated up to max dose. Though was able to be off around midnight. Has also received 6 doses of IV hydralazine over the last 24 hours. Since midnight, SBP has remained less than 140mmHg. No acute events overnight. This morning, patient is seen lying in bed. He is positioned on his right side. He is awake and alert. Answers orientation questions appropriately. Keeps eyes open throughout exam. Does not make eye contact voluntarily. With instruction, was able to then make contact withmy face. States headache is less severe than when he presented to the hospital. Speech is clear andfluent, no dysarthria. Tongue protrudes midline. Face is symmetric. Right/left differentiation is intact. Though has notable left-sided visual field neglect bilaterally. + Left homonymous hemianopsia. With EOMI testing, eyes do not follow my finger to the left, and cannot identify fingers being held up at this time. Pupils are equal, and react to light testing bilaterally. Denies nausea and vomiting this morning, acute paresthesias or acute weakness. He moves all 4 extremities well, and has strong/equal motor strength of bilateral upper and lower extremities. Light touch sensation is intact equally in face, upper and lower extremities. Objective Vitals and Measurements T: 36.8 C (Oral) TMIN: 36.5 C (Oral) TMAX: 36.9 C (Oral) HR: 91 (Apical) RR: 22 BP: 160/54 BP: 122/53(Line) SpO2: 96% HT: 167 cm WT: 88.1 kg BMI: 31.59 Intake and Output 7AM Yesterday to 7AM Today Intake and Output (Last 24 hours) Intake Platelets Amount Transfused 250.00 Oral Intake 25.00 Administration Information 1565.00 Output Urinary Catheter Output: 600.00 Stool Count 0.00 Total Summary Total Intake 1840.00 Total Output 600.00 Fluid Balance 1240.00 Physical Exam Abdomen is soft. Bowel sounds present throughout. Lungs are clear bilaterally. Respirations unlabored and even Regular heart rate and rhythm. S1-S2 present. Weight Dosing Weight: 88.1 kg (04/20/24) Medications Medications (16) Active Scheduled: (3) atorvastatin 40 mg tablet 40 mg 1 tab(s), Oral, qDay metoprolol tartrate 50 mg tablet 50 mg 1 tab(s), Oral, BIDM omeprazole [address] capsule 20 mg 1 cap(s), Oral, qDayAC Continuous: (3) insulin regular 100 unit(s) + NS Premix Diluent 100 mL 100 mL, Intravenous nicardipine PMX 20 mg [5 mg/hr] + NS Premix Diluent 200 mL 200 mL, Intravenous, 50 mL/hr NS (0.9% nacl) 1,000 mL 1,000 mL, Intravenous, 50 mL/hr PRN: (10) acetaminophen 500 mg Tablet 1,000 mg 2 tab(s), Oral, q6hr acetaminophen PMX 1,000 mg 100 mL, IV Piggyback, q6h dextrose 50% Solution Disp syringe 50 mL 25 g 50 mL, IV Push, AsDirected docusate sodium 100 mg Capsule 100 mg 1 cap(s), Oral, BID hydralazine 20 mg/mL (1mL) vial 10 mg 0.5 mL, IV Push, q2h insulin regular human recombinant 100 units/ml (10 mL) Solution sliding scale insulin, Subcutaneous, q4h magnesium hydroxide 8% Suspension 30 mL UD 30 mL, Oral, qHS morphine 2 mg/mL 1 mL syringe 1 mg 0.5 mL, IV Push, q3h morphine 2 mg/mL 1 mL syringe 2 mg 1 mL, IV Push, q3h ondansetron 2 mg/ 1 mL 2 mL INJ 4 mg 2 mL, IV Push, q4h Lab Results 04/21 03:53 WBC: 14.7 H Hgb: 13.3 Hct: 40.4 Platelet: 256 Neutrophil %: 88.2 H Glucose Level: 129 H Sodium Level: 142 Potassium Level: 3.8 BUN: 23.0 H Creatinine Lvl (s): 1.08 EKG No qualifying data available. Assessment/Plan Right parietal IPH with IV extension Had very recent heart cath and stent placement to proximal LAD 04/19/2024; for the procedure [id number] mg aspirin, 60 mg of Effient, and 14,000 units of heparin. Was discharged home with prescription for 81 mg aspirin and 10 mg Effient daily, though stated these medications had not yet been picked up. Patient developed headache the evening of 04/19, awoke the next day with headache and confusion. Was brought to [place] ED 04/20/[address] demonstrated a 4.7 cm right parietal intraparenchymal hemorrhage with extension into the right lateral ventricle. Surrounding edema present, but without significant shift of midline structures. Also found to be hypertensive with SBP 146-161 mmHg. Patient given 1 unit of platelets. Admitted to SICU where he currently remains. Student Services Representative and cardiology following. Repeat head CT this morning Was obtained, and reviewed with Dr. Ryder. Findings show stable right parietal intraparenchymal hemorrhage with intraventricular extension, small amount of adjacent subarachnoid hemorrhage of the right parietal lobe, unchanged from initial CT. No hydrocephalus. Has new trace left parietal SAH. Continue close monitoring with frequent neuroexams and notify neurosurgery promptly with any acute changes or concerns At present time, no neurosurgical intervention is required. Patient may have a diet. He may also begin to mobilize and participate in PT/OT today. Maintain SBP between 120-140 mmHg. IV Tylenol and IV morphine ordered for pain control, as well as IV Zofran ordered for nausea. Coagulopathy secondary to aspirin and Effient use Recent stent to LAD 04/19/2024 Dr. Casper notified of patient's admission; cardiology following. Patient received 1 unit of platelets; antiplatelet medications have been placed on hold. Will need to formulate a reasonable plan regarding restarting AC/AP agents when safe for patient; Dr. Ryder provides could consider starting heparin by weight without bolus, and goal PTT 40 50 will closely monitoring patient clinically and with serial head CT imaging, especially also in light of patient's hypertension. If cardiology feels heparin needs to be started as early as today, then would re peat head CT at 4 PM this afternoon, and again tomorrow morning. Platelet function is still low, this morning found at 20% Hypertension Found to be hypertensive in the ED with SBP 146-161 mmHg. Required nicardipine drip for treatment of hypertension, which had been titrated up to max dose. This was able to be weaned off around midnight. Has received 6 doses of as needed IV hydralazine over the last 24 hours. Is on metoprolol 50 mg twice daily. Since midnight, SBP has remained less than 140 mmHg. Goal SBP 120-140 mmHg DVT prophylaxis: SCDs to bilateral lower extremities at all times while in bed. Please refer to Dr. Ryder's addendum for additional information and details regarding neurosurgical input and plan of care. Anticipated Date of Discharge Unknown Digitally Signed by DEBBI MOSELEY on 04/21/2024 10:06 AM Digitally Signed by DEBBI MOSELEY on 04/21/2024 10:[address] [facility] [id number] History and physical note Date of Service 04/20/2024 This is a split/shared history and physical with Dr. Ryder Chief Complaint [facility] History of Present Illness Patient this is a 68-year-old male with a past medical history significant for HTN, HLD, TARIK, prediabetes, GERD, CAD s/p stent to proximal LAD on 04/19/[address] Casper who presented to [facility] ED this morning with confusion and headache. Patient provides that he underwent stress test and heart cath/stent placement yesterday, but developed a headache prior to going to bed. His noted that around 5 AM this morning he had come back from the bathroom and was noticeably wet. Provides that he was attempting to put his pants on but having much difficulty. Said that he did not feel right. This prompted evaluation in the ED. In [place] ED, noncontrasted head CT was completed which demonstrated a 4.7 cm right parietal intraparenchymal hemorrhage with extension into the right lateral ventricle. There is surrounding edema without significant shift of midline structures. Patient was found to be hypertensive with SBP 146-161 mmHg. Case was discussed with Dr. Ryder, as well as Dr. Casper by ED physician. Given that patient had stent placed yesterday, it was decided to hold all antiplatelet medications and avoid DDAVP in order to lessen the chance of acute stent thrombosis. Dr. Ryder did order a unit of platelets. On review of documentation, patient did receive 325 mg aspirin, 60 mg of Effient, and 14,000 units of heparin during his procedure yesterday. He was discharged with prescriptions for aspirin and Effient, however his provides that he has not picked these up yet. Patient admitted to SICU under Dr. Ryder service with consultation to box estimator team. Patient evaluated upon arrival to SICU. He is awake, does answer orientation questions appropriately though keeps his eyes closed through most of the exam. He endorses severe headache, mid back pain,and pain to bilateral calves. Denies any vision changes, dizziness/lightheadedness, acute paresthesias, weakness. Does endorse nausea though no vomiting. Review of Systems General: Denies fevers, chills, night sweats HEENT: +HATHAWAY. Denies hoarseness, dysphagia Neck: Denies neck pain or stiffness Cardiac: Denies chest pain, palpitations, no dizziness Respiratory: Denies cough or shortness of breath GI: +Nausea. Denies vomiting, diarrhea, no bowel incontinence : Denies urinary incontinence MS: No falling, no balance issues Vascular: Denies peripheral edema, no pain with walking Neuro: Denies numbness or tingling Physical Exam Vitals and Measurements T: 36.5 C (Oral) HR: 93 (Monitored) RR: 18 BP: 127/69 SpO2: 95% HT: 167 cm WT: 88.1 kg BMI: 31.59 Weight Dosing Weight: 88.1 kg (04/20/24) General: Arousable, +FSC, cooperative with exam HEENT: Atraumatic, normocephalic, pupils equal and reactive to light, + left homonymous hemianopia Neck: Supple Cardiac: Heart regular rate and rhythm Respiratory: Lungs clear to auscultation A/P Abdomen: Soft, nontender, bowel sounds present x4 MS: MIX Vascular: Pedal pulses are normal bilaterally, no edema Neuro: Patient is arousable, able to provide his name, that he is at [place], and that it is April 2024. Facial features are symmetrical. Speech is clear and fluent. Follows simple commands. Leftupper and lower extremity 4/5, right upper and lower extremity 5/5, sensation intact to light touchthroughout his face, BUE, and BLE. No pronator drift. Left/right discretion intact. Skin: Warm, dry, intact Imaging Results and Diagnostics Imaging reviewed from [facility] ED. Assessment/Plan Right parietal IPH with IV extension Patient underwent heart cath and stent placement to proximal LAD on 04/19/2024. During procedure was given 325 mg aspirin, 60 mg of Effient, and 14,000 units of heparin. Was discharged home with prescription for 81 mg aspirin and 10 mg Effient daily. This morning, patient was found to be confused, inappropriate. His brought him to the ED for further evaluation. Noncontrasted head CT was completed which demonstrated a 4.7 cm right parietal intraparenchymal hemorrhage with extension into the right lateral ventricle. There is surrounding edema without significant shift of midline structures. Patient was also found to be hypertensive with SBP 146-161 mmHg. Given recent stent placement, patient was discussed with Dr. Ryder of neurosurgery, as well as Dr. Casper. It was decided to hold all antiplatelet medications and avoid DDAVP in order to lessen the chance of acute stent thrombosis. Dr. Ryder did order 1 unit of platelets. Patient transferred to [facility], admitted to SICU under neurosurgery service with consultation to box estimator. Patient continues to complain of severe headache, and nausea. He is arousable and oriented. 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 Met with the patient and his and children at the bedside. Reviewed imaging on computer in the room. Discussed that as of right now, patient does not require any acute neurosurgical intervention,however will need to be monitored very closely to ensure that he is not developing increased intracranial pressure. Hourly neurochecks. Notify neurosurgery promptly with any changes in patient's exam or concerns. Patient to remain n.p.o. in case of procedure. Did discuss with family that the next 24 hours will be critical, and that we will plan to repeat a noncontrasted head CT tomorrow morning. Maintain SBP between 120-140 mmHg. Cardene drip, at least for the first [address] Donnelly. 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 IV Tylenol and IV morphine ordered for pain control, as well as IV Zofran ordered for nausea. SCDs for DVT prophylaxis Coagulopathy secondary to aspirin and Effient use Recent stent to LAD 04/19/2024 ED discussed case with Dr. Casper. It was decided to hold all antiplatelet medications and avoid DDAVP in order to lessen the chance of acute stent thrombosis. Dr. Ryder has ordered 1 unit of platelets for transfusion. Will hold all AC/AP agents until cleared by neurosurgery. Will place consultation to Dr. Casper. Will need to discuss and formulate a reasonable plan regarding restarting AC/AP agents when safe for patient. Plan reviewed with box estimator team, as well as with family at the bedside. Please see Dr. Ryder's addendum for further details regarding neurosurgical assessment/plan of care. Problem List/Past Medical History Ongoing Dysphagia Erectile dysfunction Essential hypertension Exposure to varicella zoster virus (VZV) Family history of amyotrophic lateral sclerosis Family history of colon cancer Generalized anxiety disorder Holter monitor, abnormal (2nd deg AV-block) Insomnia Left carotid artery stenosis Low T4 Major depressive disorder, recurrent Masks: declines in-person appointments during mask required times Mixed hyperlipidemia Mobitz type 1 second degree AV block Neurocardiogenic syncope Nonalcoholic hepatosteatosis NSAID long-term use Oral mucosal lesion TARIK (obstructive sleep apnea), Inspire, intolerant to CPAP Post-nasal drip Prediabetes Raynaud disease S/P carpal tunnel release Seasonal allergies Syncopal episodes Tachycardia Throat fullness Tricuspid valve regurgitation Procedure/Surgical History Other: 1991 Inguinal hernia Medications Home Medications (22) Active Alpha Lipoic 100 mg oral tablet , Oral, BID aspirin 81 mg oral delayed release tablet 81 mg = 1 tab(s), Oral, Daily atorvastatin 40 mg oral tablet 40 mg = 1 tab(s), Oral, qDay cloNIDine 0.1 mg oral tablet 0.1 mg = 1 tab(s), Oral, TID Effient 10 mg oral tablet 10 mg = 1 tab(s), Oral, Daily Fish Oil 1000 mg oral capsule , Oral garlic oral capsule irbesartan 75 mg oral tablet 75 mg = 1 tab(s), Oral, qDay Metamucil , Oral metoprolol succinate 50 mg oral TABLET extended release 50 mg = 1 tab(s), Oral, BID mirtazapine 30 mg oral tablet nitroglycerin 0.4 mg sublingual tablet 0.4 mg = 1 tab(s), PRN, Sublingual, q5min nutritional supplement nutritional supplement omeprazole 20 mg oral delayed release capsule 20 mg = 1 cap(s), Oral, qDay Quercitin Vitamin B12 50 mcg oral tablet 50 mcg = 1 tab(s), Oral, qDay Vitamin C 25 mg oral tablet, chewable 25 mg = 1 tab(s), Chewed, qDay Vitamin D3 50 mcg = 1 tab(s), Oral, Daily vitamin E 100 intl units oral capsule 100 International_Unit = 1 cap(s), Oral, Daily zinc (as acetate) 50 mg oral capsule 50 mg = 1 cap(s), Oral, TID Zyrtec 10 mg oral tablet 10 mg = 1 tab(s), Oral, qDay Allergies NKA Social History Smoking Status - 08/18/2014 Never smoker Alcohol Use: Current. 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 Juliet Grant's daughter, lives with them the most., 10/23/2020 Nutrition/Health Caffeine intake amount: 1 serving per day., 03/22/2019 Substance Abuse Use: Current. Frequency: Daily., 11/05/2023 Tobacco Nicotine Use: Never (less than 100 in lifetime)., 07/15/2023 Family History Arthritis: Sister. Heart attack: Father. Family Member(s) Relationship: Father, Age: 54 Years Relationship: Paternal Grandfather, Age: 90 Years, Cause: old age Relationship: Mother, Name: Mark Martini, Age: 92 Years, Cause: COVID, sepsis Immunizations tetanus/diphth/pertuss (Tdap) adult/adol: 0 unknown unit (10/19/12) Code Status Code Status - Ordered -- 04/20/24 11:57:00 EDT, Full Code, Constant Order Digitally Signed by PATRICIA WALTER on 04/20/2024 01:[address] [id number] Note ORIGINAL EXAMINATION: CT OF THE HEAD WITHOUT CONTRAST 04/21/2024 5:27 am TECHNIQUE: CT of the head was performed without the administration of intravenous contrast. Automated exposure control, iterative reconstruction, and/or weight based adjustment of the mA/kV was utilized to reduce the radiation dose to as low as reasonably achievable. COMPARISON: CT head 04/20/2024 HISTORY: ORDERING SYSTEM PROVIDED HISTORY: Reason for Exam: f/u ICH FINDINGS: BRAIN/VENTRICLES: There is a similar appearing 4.6 cm right parietal intraparenchymal hematoma with surrounding low attenuation likely representing edema. Hemorrhage is present within the atrium of the right lateral ventricle. There is a small amount of adjacent subarachnoid hemorrhage overlying the right parietal lobe not significantly changed from previous exam. There is effacement of the right parietal sulci. No midline shift. New trace left parietal subarachnoid hemorrhage. There is no evidence of hydrocephalus. ORBITS: The visualized portion of the orbits demonstrate no acute abnormality. SINUSES: The visualized paranasal sinuses and mastoid air cells demonstrate no acute abnormality. SOFT TISSUES/SKULL: No acute abnormality of the visualized skull or soft tissues. IMPRESSION: Similar appearing right parietal intraparenchymal hematoma with intraventricular extension and trace subarachnoid hemorrhage with effacement of the adjacent sulci. No midline shift. New trace left parietal subarachnoid hemorrhage. Laurence Don MD called these results to May Jaeger RN at 05:49 on 04/21/2024. Preliminary Report was Dictated by a Resident Interpreted by: Davin Gagnon MD Preliminary Report By: Laurence Don Electronically signed By Davin Gagnon MD Dictated Date: 04/21/2024 5:33:40 AM Prelim Date: 04/21/2024 5:52:10 AM Sign Date: 04/21/2024 6:13:34 AM Ordering Provider: [facility]09-05-2024 Cardiology Consult note Date of Service 04/20/2024 Reason for Consultation Recent PCI on 04/19/2024, presented with ICH History of Present Illness Tracy Cardoso is a 68-year-old male with a past medical history significant for CAD status post PCIwith drug-eluting stent to LAD on 04/19/2024 (on aspirin and Prasugrel), Nuclear med myocardial stress test with LVEF 56% with normal wall motion on 03/31/2024, Neurocardiogenic syncope, second-degree AV block, hypertension, left carotid stenosis, mixed hyperlipidemia, subdural hematoma status post skiing accident, obstructive sleep apnea with inspire therapy (intolerant to CPAP), activity induced asthma, prediabetes, nonalcoholic hepatosteatosis, GERD status post laparoscopic Rosa fundoplication, anxiety and major depressive disorder. He presented to [facility] emergency department for altered mental status. Per ED note patient had really bad headache before going to bed last night and woke up this morning confused. A CT of the head was completed showing a right parietal intraparenchymal hematoma with intraventricular extension and a trace subarachnoid hemorrhage. The case was discussed with Dr. Ryder from neurosurgery who accepted the patient's transfer to the surgical intensive care unit at [place]. Dr. Winchester, ED physicianalso spoke with Dr. Casper from cardiology regarding stent placement yesterday (04/19) and it was decided to hold all antiplatelets without reversal at this time to lessen the chance of acute stent thrombosis. He received 325 mg of aspirin, 60 mg of Effient and 14,000 units of heparin bolus for the heart cath yesterday. Pro time 11.6 with INR of 1.0. Troponin negative at 74 with EKG interpretation sinus rhythm with borderline prolonged ME interval and borderline left axis deviation. Upon his arrival to the surgical intensive care unit he appeared to be in no acute distress, on room air with a pulse ox reading of 96%, heart rate 66 with a systolic blood pressure of 156, as neededhydralazine ordered. [04/20/2024]: Patient presented to ED from [facility] because of headache. CT head s/o right intraparenchymal hematoma. ED talked with IC and recommended to hold off on antiplatelets without reversal. [04/19/2024]: Patient had outpatient cardiac cath for positive stress test, had PCI to LAD. Patientwas discharged home. Review of Systems General: negative for weight change, fevers/night sweats/chills, fatigue/weakness Skin: negative for skin changes HEENT: negative for headache, visual changes, hearing loss, rhinorrhea/congestion/epistaxis, bleeding gums, hoarseness/sore throat Breasts: negative for skin changes, discharge Cardiac: negative for murmurs, angina, palpitations, SHAY, orthopnea, PND, edema Pulmonary: negative for SOB, wheezing, cough, sputum/hemoptysis, PNA, asthma/bronchitis/COPD GI: negative for N/V, change in appetite, dysphagia, change in BM, stool color, hematemesis/melena/hematochezia, constipation/diarrhea : negative for polydipsia, polyuria, hematuria, dysuria, nocturia MSK: negative for muscle weakness, joint pain/stiffness, redness/swelling Heme: negative for anemia, easy bruising Neurologic: negative for loss of sensation/numbness/tingling, weakness/paralysis Physical Exam Vitals and Measurements T: 36.5 C (Oral) HR: 93 (Monitored) RR: 18 BP: 155/67 SpO2: 93% HT: 167 cm WT: 88.1 kg BMI: 31.59 Weight Dosing Weight: 88.1 kg (04/20/24) General: AAOX3, NAD HEENT: Anicteric sclera, MMM Neck: Trachea midline, no JVD appreciated CVS: RRR, normal S1/S2, no murmurs/rubs/gallops Lung: CTAB, no wheezes/rhonchi/rales Abd: Soft, NT/ND Extrem: WWP, no LE edema Skin: Warm, Intact Neuro: AAOX3, spontaneous movement of all extremities Psych: Appropriate mood & affect Lab Results No 36 Hour Lab Data Assessment/Plan 1. Intraparenchymal hematoma Patient presented with headache and was found to have intraparenchymal hematoma Recent PCI to LAD on 04/19/2024 and discharged on aspirin and prasugrel Platelet function today was 6% Plan Repeat platelet function tomorrow morning 2. CAD s/p PCI to LAD on 04/19/2024 Plan HOLDING aspirin and prasugrel because of ICH RESTART atorvastatin 40 mg p.o. daily 3. TARIK 4. Hypertension Management as per primary team Problem List/Past Medical History Ongoing Dysphagia Erectile dysfunction Essential hypertension Exposure to varicella zoster virus (VZV) Family history of amyotrophic lateral sclerosis Family history of colon cancer Generalized anxiety disorder Holter monitor, abnormal (2nd deg AV-block) Insomnia Left carotid artery stenosis Low T4 Major depressive disorder, recurrent Masks: declines in-person appointments during mask required times Mixed hyperlipidemia Mobitz type 1 second degree AV block Neurocardiogenic syncope Nonalcoholic hepatosteatosis NSAID long-term use Oral mucosal lesion TARIK (obstructive sleep apnea), Inspire, intolerant to CPAP Post-nasal drip Prediabetes Raynaud disease S/P carpal tunnel release Seasonal allergies Syncopal episodes Tachycardia Throat fullness Tricuspid valve regurgitation Procedure/Surgical History Other: 1991 Inguinal hernia Medications Inpatient Apresoline, 10 mg= 0.5 mL, IV Push, q2h, PRN Colace, 100 mg= 1 cap(s), Oral, BID, PRN Dextrose, 25 gram(s)= 50 mL, IV Push, AsDirected, PRN HumuLIN R, sliding scale insulin, Subcutaneous, q4h, PRN Insulin Regular for IV 100 unit(s) + NS Premix Diluent 100 mL metoprolol tartrate (Lopressor), 50 mg= 1 tab(s), Oral, BIDM Milk of Magnesia, 30 mL, Oral, qHS, PRN morphine, 1 mg= 0.5 mL, IV Push, q3h, PRN morphine, 2 mg= 1 mL, IV Push, q3h, PRN niCARdipine for IV 20 mg [5 mg/hr] + NS PMX titrate 200 mL NS 1,000 mL, 1000 mL, Intravenous NS 500 mL 500 mL, 500 mL, Intravenous Ofirmev IVPB, 1000 mg= 100 mL, IV Piggyback, q6h, PRN Protonix, 40 mg, IV Push, qDayAC Zofran, 4 mg= 2 mL, IV Push, q4h, PRN Home Alpha Lipoic 100 mg oral tablet, Oral, BID aspirin 81 mg oral delayed release tablet, 81 mg= 1 tab(s), Oral, Daily, 11 refills atorvastatin 40 mg oral tablet, 40 mg= 1 tab(s), Oral, qDay cloNIDine 0.1 mg oral tablet, 0.1 mg= 1 tab(s), Oral, TID, 2 refills Effient 10 mg oral tablet, 10 mg= 1 tab(s), Oral, Daily, 11 refills Fish Oil 1000 mg oral capsule, Oral garlic oral capsule irbesartan 75 mg oral tablet, 75 mg= 1 tab(s), Oral, qDay, 1 refills Metamucil, Oral metoprolol succinate 50 mg oral TABLET extended release, 50 mg= 1 tab(s), Oral, BID, 2 refills mirtazapine 30 mg oral tablet nitroglycerin 0.4 mg sublingual tablet, 0.4 mg= 1 tab(s), Sublingual, q5min, PRN nutritional supplement nutritional supplement omeprazole 20 mg oral delayed release capsule, 20 mg= 1 cap(s), Oral, qDay, 1 refills Quercitin Vitamin B12 50 mcg oral tablet, 50 mcg= 1 tab(s), Oral, qDay Vitamin C 25 mg oral tablet, chewable, 25 mg= 1 tab(s), Chewed, qDay Vitamin D3, 50 mcg= 1 tab(s), Oral, Daily vitamin E 100 intl units oral capsule, 100 International_Unit= 1 cap(s), Oral, Daily, Not taking zinc (as acetate) 50 mg oral capsule, 50 mg= 1 cap(s), Oral, TID, Not taking Zyrtec 10 mg oral tablet, 10 mg= 1 tab(s), Oral, qDay Allergies NKA Social History Smoking Status - 08/18/2014 Never smoker Alcohol Use: Current. 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 Juliet Grant's daughter, lives with them the most., 10/23/2020 Nutrition/Health Caffeine intake amount: 1 serving per day., 03/22/2019 Substance Abuse Use: Current. Frequency: Daily., 11/05/2023 Tobacco Nicotine Use: Never (less than 100 in lifetime)., 07/15/2023 Family History Arthritis: Sister. Heart attack: Father. Health Status Family Member(s) Family Member(s) Relationship: Father, Age: 54 Years Relationship: Paternal Grandfather, Age: 90 Years, Cause: old age Relationship: Mother, Name: Mark Martini, Age: 92 Years, Cause: COVID, sepsis Immunizations tetanus/diphth/pertuss (Tdap) adult/adol: 0 unknown unit (10/19/12) Digitally Signed by TIN ALTMAN MD on 04/20/2024 04:[address] [id number] Pastoral care Progress note Pastoral Care Note Entered On: 04/20/2024 15:46 EDT Performed On: 04/20/2024 15:10 EDT by Lety Martinez Pastoral Care Type of Pastoral Visit : Initial visit Spiritual Care Visit Initiated by : Consult/Referral Spiritual Care Reason for Visit : General Pastoral Care Referral From : Patient Spiritual Assessment : Hopeful Spiritual Care Emotional Assessment : Incredulous Spiritual Care Intervention : Active listening, Words of Encouragement, Supportive presence Spiritual Outcomes : Spiritual Resources Stirred Spiritual Plan of Care : No Further Action Pastoral Care Comments : Provided spiritual/emotional care to pt w/presence, emphatic listening, encouragement. Pt expressed that he has a lot of people praying, so I'm good, then he closed his eyes. City Attorney expressed thankfulness that he has a support system, and then left. Pastoral Care Visit Length : 10 minute(s) Lety Martinez - 04/20/2024 15:43 EDT Digitally Signed by Lety Martinez on 04/20/2024 03:[address] [id number] Critical care medicine procedure note Date of Service 04/20/2024 Procedure Name Arterial line insertion Indication Hemodynamic instability Location Left radial artery Technique This procedure was performed at the bedside. Informed consent was obtained. Timeout was performed. The radial artery site was prepped and draped in sterile fashion using a sterile maximum barrier technique. The radial artery was then identified with the use of ultrasound. The arrow integrated arterial catheter was inserted into the radial artery under ultrasound guidance with good blood return tothe black feed tube marker. The spring wire guide handle was then advanced through the catheter andthe catheter was threaded over the wire into the radial artery. The spring wire guide handle was then removed from the catheter and there was bright red blood flowing freely from the catheter and the arterial waveform was identified on the monitor. The line was sutured into place and a sterile dressing was applied. Complications None Estimated Blood Loss 1 cc Digitally Signed by AMARIS AREVALO on 04/20/2024 02:[address] [facility] [id number] Evaluation + Plan noteExtracted from: Title:History and Physical Author:LUCIUS WALTER Date:04/20/24 Right parietal IPH with IV e xtension Patient underwent heart cath and stent placement to proximal LAD on 04/19/2024. During procedure was given 325 mg aspirin, 60 mg of Effient, and 14,000 units of heparin. Was discharged home with prescription for 81 mg aspirin and 10 mg Effient daily. This morning, patient was found to be confused, inappropriate. His brought him to the ED for further evaluation. Noncontrasted head CT was completed which demonstrated a 4.7 cm right parietal intraparenchymal hemorrhage with extension into the right lateral ventricle. There is surrounding edema without significant shift of midline structures. Patient was also found to be hypertensive with SBP 146-161 mmHg. Given recent stent placement, patient was discussed with Dr. Ryder of neurosurgery, as well as Dr. Casper. It was decided to hold all antiplatelet medications and avoid DDAVP in order to lessen the chance of acute stent thrombosis. Dr. Ryder did order 1 unit of platelets. Patient transferred to [facility], admitted to SICU under neurosurgery service with consultation to box estimator. Patient continues to complain of severe headache, and nausea. He is arousable and oriented. 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 Met with the patient and his and children at the bedside. Reviewed imaging on computer in the room. Discussed that as of right now, patient does not require any acute neurosurgical intervention, however will need to be monitored very closely to ensure that he is not developing increased intracranial pressure. Hourly neurochecks. Notify neurosurgery promptly with any changes in patient's exam or concerns. Patient to remain n.p.o. in case of procedure. Did discuss with family that the next 24 hours will be critical, and that we will plan to repeat a noncontrasted head CT tomorrow morning. Maintain SBP between 120-140 mmHg. Cardene drip, at least for the first [address] Donnelly. 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 IV Tylenol and IV morphine ordered for pain control, as well as IV Zofran ordered for nausea. SCDs for DVT prophylaxis Coagulopathy secondary to aspirin and Effient use Recent stent to LAD 04/19/2024 ED discussed case with Dr. Casper. It was decided to hold all antiplatelet medications and avoid DDAVP in order to lessen the chance of acute stent thrombosis. Dr. Ryder has ordered 1 unit of platelets for transfusion. Will hold all AC/AP agents until cleared by neurosurgery. Will place consultation to Dr. Casper. Will need to discuss and formulate a reasonable plan regarding restarting AC/AP agents when safe for patient. Plan reviewed with box estimator team, as well as with family at the bedside. Please see Dr. Ryder's addendum for further details regarding neurosurgical assessment/plan of care. Addendum by DAVID RYDER MD on April 21, 2024 08:35:46 EDT This is a split shared note between myself and the nurse practitioner. This is a late entry note, the patient seen yesterday in April 20, 2024. This is a gentleman who had a cardiac stent placed yesterday, he then went home began complaining of headache. He went to the emergency room where CT scan showed the presence of left-sided parotid occipital hemorrhage, with intraventricular extension. No evidence of obstructive hydrocephalus. On examination, the patient does have a left him on the same anopsia, he has a slight headache. But he is awake he is alert he is moving all extremities well. Plan at this point time is to obtain repeat CT scan tomorrow. Will talk to cardiology regarding this new stent that was placed. If his CT scan is relatively stable, then we will consider starting him on heparin perhaps without a bolus. The issue here is try to balance protecting his new stent in order to prevent an CA versus starting him on blood thinners and potentially causing a rebleed. Future Appointments Appointment Date:05/05/2024 12:30:00 PM Scheduled Provider:REGIS PHILLIPS DO Location:[facility] Appointment Type:PC OV Appointment Date:05/08/2024 08:30:00 AM Scheduled Provider: Location:XRAY Appointment Type:CT Head or Brain w/o Contrast Appointment Date:05/16/2024 10:00:00 AM Scheduled Provider:WILNER MEDEROS Location:[facility] Appointment Type:CV OV Future Scheduled Tests Radiology* CT Head or Brain w/o Contrast 05/08/24 [facility] 09-05-2024 History and physical note Date of Service 04/20/2024 This is a split/shared history and physical with Dr. Ryder Chief Complaint [facility] History of Present Illness Patient this is a 68-year-old male with a past medical history significant for HTN, HLD, TARIK, prediabetes, GERD, CAD s/p stent to proximal LAD on 04/19/[address] Casper who presented to [facility] ED this morning with confusion and headache. Patient provides that he underwent stress test and heart cath/stent placement yesterday, but developed a headache prior to going to bed. His noted that around 5 AM this morning he had come back from the bathroom and was noticeably wet. Provides that he was attempting to put his pants on but having much difficulty. Said that he did not feel right. This prompted evaluation in the ED. In [place] ED, noncontrasted head CT was completed which demonstrated a 4.7 cm right parietal intraparenchymal hemorrhage with extension into the right lateral ventricle. There is surrounding edema without significant shift of midline structures. Patient was found to be hypertensive with SBP 146-161 mmHg. Case was discussed with Dr. Ryder, as well as Dr. Casper by ED physician. Given that patient had stent placed yesterday, it was decided to hold all antiplatelet medications and avoid DDAVP in order to lessen the chance of acute stent thrombosis. Dr. Ryder did order a unit of platelets. On review of documentation, patient did receive 325 mg aspirin, 60 mg of Effient, and 14,000 units of heparin during his procedure yesterday. He was discharged with prescriptions for aspirin and Effient, however his provides that he has not picked these up yet. Patient admitted to SICU under Dr. Ryder service with consultation to box estimator team. Patient evaluated upon arrival to SICU. He is awake, does answer orientation questions appropriately though keeps his eyes closed through most of the exam. He endorses severe headache, mid back pain,and pain to bilateral calves. Denies any vision changes, dizziness/lightheadedness, acute paresthesias, weakness. Does endorse nausea though no vomiting. Review of Systems General: Denies fevers, chills, night sweats HEENT: +HATHAWAY. Denies hoarseness, dysphagia Neck: Denies neck pain or stiffness Cardiac: Denies chest pain, palpitations, no dizziness Respiratory: Denies cough or shortness of breath GI: +Nausea. Denies vomiting, diarrhea, no bowel incontinence : Denies urinary incontinence MS: No falling, no balance issues Vascular: Denies peripheral edema, no pain with walking Neuro: Denies numbness or tingling Physical Exam Vitals and Measurements T: 36.5 C (Oral) HR: 93 (Monitored) RR: 18 BP: 127/69 SpO2: 95% HT: 167 cm WT: 88.1 kg BMI: 31.59 Weight Dosing Weight: 88.1 kg (04/20/24) General: Arousable, +FSC, cooperative with exam HEENT: Atraumatic, normocephalic, pupils equal and reactive to light, + left homonymous hemianopia Neck: Supple Cardiac: Heart regular rate and rhythm Respiratory: Lungs clear to auscultation A/P Abdomen: Soft, nontender, bowel sounds present x4 MS: MIX Vascular: Pedal pulses are normal bilaterally, no edema Neuro: Patient is arousable, able to provide his name, that he is at [place], and that it is April 2024. Facial features are symmetrical. Speech is clear and fluent. Follows simple commands. Leftupper and lower extremity 4/5, right upper and lower extremity 5/5, sensation intact to light touchthroughout his face, BUE, and BLE. No pronator drift. Left/right discretion intact. Skin: Warm, dry, intact Imaging Results and Diagnostics Imaging reviewed from [facility] ED. Assessment/Plan Right parietal IPH with IV extension Patient underwent heart cath and stent placement to proximal LAD on 04/19/2024. During procedure was given 325 mg aspirin, 60 mg of Effient, and 14,000 units of heparin. Was discharged home with prescription for 81 mg aspirin and 10 mg Effient daily. This morning, patient was found to be confused, inappropriate. His brought him to the ED for further evaluation. Noncontrasted head CT was completed which demonstrated a 4.7 cm right parietal intraparenchymal hemorrhage with extension into the right lateral ventricle. There is surrounding edema without significant shift of midline structures. Patient was also found to be hypertensive with SBP 146-161 mmHg. Given recent stent placement, patient was discussed with Dr. Ryder of neurosurgery, as well as Dr. Casper. It was decided to hold all antiplatelet medications and avoid DDAVP in order to lessen the chance of acute stent thrombosis. Dr. Ryder did order 1 unit of platelets. Patient transferred to [facility], admitted to SICU under neurosurgery service with consultation to box estimator. Patient continues to complain of severe headache, and nausea. He is arousable and oriented. 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 Met with the patient and his and children at the bedside. Reviewed imaging on computer in the room. Discussed that as of right now, patient does not require any acute neurosurgical intervention,however will need to be monitored very closely to ensure that he is not developing increased intracranial pressure. Hourly neurochecks. Notify neurosurgery promptly with any changes in patient's exam or concerns. Patient to remain n.p.o. in case of procedure. Did discuss with family that the next 24 hours will be critical, and that we will plan to repeat a noncontrasted head CT tomorrow morning. Maintain SBP between 120-140 mmHg. Cardene drip, at least for the first [address] Donnelly. 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 IV Tylenol and IV morphine ordered for pain control, as well as IV Zofran ordered for nausea. SCDs for DVT prophylaxis Coagulopathy secondary to aspirin and Effient use Recent stent to LAD 04/19/2024 ED discussed case with Dr. Casper. It was decided to hold all antiplatelet medications and avoid DDAVP in order to lessen the chance of acute stent thrombosis. Dr. Ryder has ordered 1 unit of platelets for transfusion. Will hold all AC/AP agents until cleared by neurosurgery. Will place consultation to Dr. Casper. Will need to discuss and formulate a reasonable plan regarding restarting AC/AP agents when safe for patient. Plan reviewed with box estimator team, as well as with family at the bedside. Please see Dr. Ryder's addendum for further details regarding neurosurgical assessment/plan of care. Problem List/Past Medical History Ongoing Dysphagia Erectile dysfunction Essential hypertension Exposure to varicella zoster virus (VZV) Family history of amyotrophic lateral sclerosis Family history of colon cancer Generalized anxiety disorder Holter monitor, abnormal (2nd deg AV-block) Insomnia Left carotid artery stenosis Low T4 Major depressive disorder, recurrent Masks: declines in-person appointments during mask required times Mixed hyperlipidemia Mobitz type 1 second degree AV block Neurocardiogenic syncope Nonalcoholic hepatosteatosis NSAID long-term use Oral mucosal lesion TARIK (obstructive sleep apnea), Inspire, intolerant to CPAP Post-nasal drip Prediabetes Raynaud disease S/P carpal tunnel release Seasonal allergies Syncopal episodes Tachycardia Throat fullness Tricuspid valve regurgitation Procedure/Surgical History Other: 1991 Inguinal hernia Medications Home Medications (22) Active Alpha Lipoic 100 mg oral tablet , Oral, BID aspirin 81 mg oral delayed release tablet 81 mg = 1 tab(s), Oral, Daily atorvastatin 40 mg oral tablet 40 mg = 1 tab(s), Oral, qDay cloNIDine 0.1 mg oral tablet 0.1 mg = 1 tab(s), Oral, TID Effient 10 mg oral tablet 10 mg = 1 tab(s), Oral, Daily Fish Oil 1000 mg oral capsule , Oral garlic oral capsule irbesartan 75 mg oral tablet 75 mg = 1 tab(s), Oral, qDay Metamucil , Oral metoprolol succinate 50 mg oral TABLET extended release 50 mg = 1 tab(s), Oral, BID mirtazapine 30 mg oral tablet nitroglycerin 0.4 mg sublingual tablet 0.4 mg = 1 tab(s), PRN, Sublingual, q5min nutritional supplement nutritional supplement omeprazole 20 mg oral delayed release capsule 20 mg = 1 cap(s), Oral, qDay Quercitin Vitamin B12 50 mcg oral tablet 50 mcg = 1 tab(s), Oral, qDay Vitamin C 25 mg oral tablet, chewable 25 mg = 1 tab(s), Chewed, qDay Vitamin D3 50 mcg = 1 tab(s), Oral, Daily vitamin E 100 intl units oral capsule 100 International_Unit = 1 cap(s), Oral, Daily zinc (as acetate) 50 mg oral capsule 50 mg = 1 cap(s), Oral, TID Zyrtec 10 mg oral tablet 10 mg = 1 tab(s), Oral, qDay Allergies NKA Social History Smoking Status - 08/18/2014 Never smoker Alcohol Use: Current. 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 Juliet Grant's daughter, lives with them the most., 10/23/2020 Nutrition/Health Caffeine intake amount: 1 serving per day., 03/22/2019 Substance Abuse Use: Current. Frequency: Daily., 11/05/2023 Tobacco Nicotine Use: Never (less than 100 in lifetime)., 07/15/2023 Family History Arthritis: Sister. Heart attack: Father. Family Member(s) Relationship: Father, Age: 54 Years Relationship: Paternal Grandfather, Age: 90 Years, Cause: old age Relationship: Mother, Name: Mark Martini, Age: 92 Years, Cause: COVID, sepsis Immunizations tetanus/diphth/pertuss (Tdap) adult/adol: 0 unknown unit (10/19/12) Code Status Code Status - Ordered -- 04/20/24 11:57:00 EDT, Full Code, Constant Order Digitally Signed by PATRICIA WALTER on 04/20/2024 01:[address] [id number] Cardiology Consult note Date of Service 04/20/2024 Reason for Consultation Recent PCI on 04/19/2024, presented with ICH History of Present Illness Tracy Cardoso is a 68-year-old male with a past medical history significant for CAD status post PCIwith drug-eluting stent to LAD on 04/19/2024 (on aspirin and Prasugrel), Nuclear med myocardial stress test with LVEF 56% with normal wall motion on 03/31/2024, Neurocardiogenic syncope, second-degree AV block, hypertension, left carotid stenosis, mixed hyperlipidemia, subdural hematoma status post skiing accident, obstructive sleep apnea with inspire therapy (intolerant to CPAP), activity induced asthma, prediabetes, nonalcoholic hepatosteatosis, GERD status post laparoscopic Rosa fundoplication, anxiety and major depressive disorder. He presented to [facility] emergency department for altered mental status. Per ED note patient had really bad headache before going to bed last night and woke up this morning confused. A CT of the head was completed showing a right parietal intraparenchymal hematoma with intraventricular extension and a trace subarachnoid hemorrhage. The case was discussed with Dr. Ryder from neurosurgery who accepted the patient's transfer to the surgical intensive care unit at [place]. Dr. Winchester, ED physicianalso spoke with Dr. Casper from cardiology regarding stent placement yesterday (04/19) and it was decided to hold all antiplatelets without reversal at this time to lessen the chance of acute stent thrombosis. He received 325 mg of aspirin, 60 mg of Effient and 14,000 units of heparin bolus for the heart cath yesterday. Pro time 11.6 with INR of 1.0. Troponin negative at 74 with EKG interpretation sinus rhythm with borderline prolonged ME interval and borderline left axis deviation. Upon his arrival to the surgical intensive care unit he appeared to be in no acute distress, on room air with a pulse ox reading of 96%, heart rate 66 with a systolic blood pressure of 156, as neededhydralazine ordered. [04/20/2024]: Patient presented to ED from [facility] because of headache. CT head s/o right intraparenchymal hematoma. ED talked with IC and recommended to hold off on antiplatelets without reversal. [04/19/2024]: Patient had outpatient cardiac cath for positive stress test, had PCI to LAD. Patientwas discharged home. Review of Systems General: negative for weight change, fevers/night sweats/chills, fatigue/weakness Skin: negative for skin changes HEENT: negative for headache, visual changes, hearing loss, rhinorrhea/congestion/epistaxis, bleeding gums, hoarseness/sore throat Breasts: negative for skin changes, discharge Cardiac: negative for murmurs, angina, palpitations, SHAY, orthopnea, PND, edema Pulmonary: negative for SOB, wheezing, cough, sputum/hemoptysis, PNA, asthma/bronchitis/COPD GI: negative for N/V, change in appetite, dysphagia, change in BM, stool color, hematemesis/melena/hematochezia, constipation/diarrhea : negative for polydipsia, polyuria, hematuria, dysuria, nocturia MSK: negative for muscle weakness, joint pain/stiffness, redness/swelling Heme: negative for anemia, easy bruising Neurologic: negative for loss of sensation/numbness/tingling, weakness/paralysis Physical Exam Vitals and Measurements T: 36.5 C (Oral) HR: 93 (Monitored) RR: 18 BP: 155/67 SpO2: 93% HT: 167 cm WT: 88.1 kg BMI: 31.59 Weight Dosing Weight: 88.1 kg (04/20/24) General: AAOX3, NAD HEENT: Anicteric sclera, MMM Neck: Trachea midline, no JVD appreciated CVS: RRR, normal S1/S2, no murmurs/rubs/gallops Lung: CTAB, no wheezes/rhonchi/rales Abd: Soft, NT/ND Extrem: WWP, no LE edema Skin: Warm, Intact Neuro: AAOX3, spontaneous movement of all extremities Psych: Appropriate mood & affect Lab Results No 36 Hour Lab Data Assessment/Plan 1. Intraparenchymal hematoma Patient presented with headache and was found to have intraparenchymal hematoma Recent PCI to LAD on 04/19/2024 and discharged on aspirin and prasugrel Platelet function today was 6% Plan Repeat platelet function tomorrow morning 2. CAD s/p PCI to LAD on 04/19/2024 Plan HOLDING aspirin and prasugrel because of ICH RESTART atorvastatin 40 mg p.o. daily 3. TARIK 4. Hypertension Management as per primary team Problem List/Past Medical History Ongoing Dysphagia Erectile dysfunction Essential hypertension Exposure to varicella zoster virus (VZV) Family history of amyotrophic lateral sclerosis Family history of colon cancer Generalized anxiety disorder Holter monitor, abnormal (2nd deg AV-block) Insomnia Left carotid artery stenosis Low T4 Major depressive disorder, recurrent Masks: declines in-person appointments during mask required times Mixed hyperlipidemia Mobitz type 1 second degree AV block Neurocardiogenic syncope Nonalcoholic hepatosteatosis NSAID long-term use Oral mucosal lesion TARIK (obstructive sleep apnea), Inspire, intolerant to CPAP Post-nasal drip Prediabetes Raynaud disease S/P carpal tunnel release Seasonal allergies Syncopal episodes Tachycardia Throat fullness Tricuspid valve regurgitation Procedure/Surgical History Other: 1991 Inguinal hernia Medications Inpatient Apresoline, 10 mg= 0.5 mL, IV Push, q2h, PRN Colace, 100 mg= 1 cap(s), Oral, BID, PRN Dextrose, 25 gram(s)= 50 mL, IV Push, AsDirected, PRN HumuLIN R, sliding scale insulin, Subcutaneous, q4h, PRN Insulin Regular for IV 100 unit(s) + NS Premix Diluent 100 mL metoprolol tartrate (Lopressor), 50 mg= 1 tab(s), Oral, BIDM Milk of Magnesia, 30 mL, Oral, qHS, PRN morphine, 1 mg= 0.5 mL, IV Push, q3h, PRN morphine, 2 mg= 1 mL, IV Push, q3h, PRN niCARdipine for IV 20 mg [5 mg/hr] + NS PMX titrate 200 mL NS 1,000 mL, 1000 mL, Intravenous NS 500 mL 500 mL, 500 mL, Intravenous Ofirmev IVPB, 1000 mg= 100 mL, IV Piggyback, q6h, PRN Protonix, 40 mg, IV Push, qDayAC Zofran, 4 mg= 2 mL, IV Push, q4h, PRN Home Alpha Lipoic 100 mg oral tablet, Oral, BID aspirin 81 mg oral delayed release tablet, 81 mg= 1 tab(s), Oral, Daily, 11 refills atorvastatin 40 mg oral tablet, 40 mg= 1 tab(s), Oral, qDay cloNIDine 0.1 mg oral tablet, 0.1 mg= 1 tab(s), Oral, TID, 2 refills Effient 10 mg oral tablet, 10 mg= 1 tab(s), Oral, Daily, 11 refills Fish Oil 1000 mg oral capsule, Oral garlic oral capsule irbesartan 75 mg oral tablet, 75 mg= 1 tab(s), Oral, qDay, 1 refills Metamucil, Oral metoprolol succinate 50 mg oral TABLET extended release, 50 mg= 1 tab(s), Oral, BID, 2 refills mirtazapine 30 mg oral tablet nitroglycerin 0.4 mg sublingual tablet, 0.4 mg= 1 tab(s), Sublingual, q5min, PRN nutritional supplement nutritional supplement omeprazole 20 mg oral delayed release capsule, 20 mg= 1 cap(s), Oral, qDay, 1 refills Quercitin Vitamin B12 50 mcg oral tablet, 50 mcg= 1 tab(s), Oral, qDay Vitamin C 25 mg oral tablet, chewable, 25 mg= 1 tab(s), Chewed, qDay Vitamin D3, 50 mcg= 1 tab(s), Oral, Daily vitamin E 100 intl units oral capsule, 100 International_Unit= 1 cap(s), Oral, Daily, Not taking zinc (as acetate) 50 mg oral capsule, 50 mg= 1 cap(s), Oral, TID, Not taking Zyrtec 10 mg oral tablet, 10 mg= 1 tab(s), Oral, qDay Allergies NKA Social History Smoking Status - 08/18/2014 Never smoker Alcohol Use: Current. 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 Juliet Grant's daughter, lives with them the most., 10/23/2020 Nutrition/Health Caffeine intake amount: 1 serving per day., 03/22/2019 Substance Abuse Use: Current. Frequency: Daily., 11/05/2023 Tobacco Nicotine Use: Never (less than 100 in lifetime)., 07/15/2023 Family History Arthritis: Sister. Heart attack: Father. Health Status Family Member(s) Family Member(s) Relationship: Father, Age: 54 Years Relationship: Paternal Grandfather, Age: 90 Years, Cause: old age Relationship: Mother, Name: Mark Martini, Age: 92 Years, Cause: COVID, sepsis Immunizations tetanus/diphth/pertuss (Tdap) adult/adol: 0 unknown unit (10/19/12) Digitally Signed by TIN ALTMAN MD on 04/20/2024 04:[address] [id number] Critical care medicine Consult note Date of Service 04/20/2024 Reason for Consultation Medical management while in the surgical intensive care unit Referring Physician Dr. Ryedr History of Present Illness Tracy Cardoso is a 68-year-old male with a past medical history significant for CAD status post PCIwith drug-eluting stent to LAD on 04/19/2024 (on aspirin and Prasugrel), Nuclear med myocardial stress test with LVEF 56% with normal wall motion on 03/31/2024, Neurocardiogenic syncope, second-degree AV block, hypertension, left carotid stenosis, mixed hyperlipidemia, subdural hematoma status post skiing accident, obstructive sleep apnea with inspire therapy (intolerant to CPAP), activity induced asthma, prediabetes, nonalcoholic hepatosteatosis, GERD status post laparoscopic Rosa fundoplication, anxiety and major depressive disorder. He presented to [facility] emergency department for altered mental status. Per ED note patient had really bad headache before going to bed last night and woke up this morning confused. A CT of the head was completed showing a right parietal intraparenchymal hematoma with intraventricular extension and a trace subarachnoid hemorrhage. The case was discussed with Dr. Ryder from neurosurgery who accepted the patient's transfer to the surgical intensive care unit at [place]. Dr. Winchester, ED physicianalso spoke with Dr. Casper from cardiology regarding stent placement yesterday (04/19) and it was decided to hold all antiplatelets without reversal at this time to lessen the chance of acute stent thrombosis. He received 325 mg of aspirin, 60 mg of Effient and 14,000 units of heparin bolus for the heart cath yesterday. Pro time 11.6 with INR of 1.0. Troponin negative at 74 with EKG interpretation sinus rhythm with borderline prolonged ME interval and borderline left axis deviation. Upon his arrival to the surgical intensive care unit he appeared to be in no acute distress, on room air with a pulse ox reading of 96%, heart rate 66 with a systolic blood pressure of 156, as neededhydralazine ordered. Review of Systems Constitutional: Denies fever, chills or sweats, weight loss Eyes: Denies blurriness, double vision, loss of vision or pain Ears, nose, mouth and throat: Denies loss of hearing, runny nose or sore throat Cardiovascular: Positive numbness and tingling of toes/fingers in the evening, denies chest pain, shortness of breath, palpitations, or dizziness Respiratory: Denies cough, shortness of breath, or wheezing, denies pain with breathing Gastrointestinal: Denies nausea, vomiting, bloating, constipation, diarrhea, rectal problems or change in stool color Genitourinary: Denies frequency, burning, hematuria, retention Musculoskeletal: Denies joint pain, swelling, redness, decreased or loss of movement Skin: Denies lesions, left rash, itching, bleeding or bruising Neurological: Positive headache and forgetfulness last night, denies dizziness, lightheadedness, orseizures Physical Exam Vitals and Measurements T: 37.6 C (Oral) HR: 70 RR: 18 BP: 133/91 SpO2: 96% HT: 165.1 cm WT: 93.2 kg Weight Dosing Weight: 93.2 kg (04/20/24) General: Alert, follows simple commands, appears in no acute distress HEENT: Normocephalic, atraumatic, no masses or lesions palpable, no eye pain, swelling, drainage, or sclera edema, lips pink and moist with no lesions, no ear drainage or pain, no nasal drainage, mouth without lesions Neck: Symmetric, no masses or lesions, trachea midline Cardiovascular: Strong regular S1 and S2, no murmur, no circumoral stenosis, capillary refill less than 2 seconds, peripheral pulses palpable Respirations: Thoracic symmetric with good expansion, respirations easy, regular no retraction, no adventitious breath sounds Abdomen: Round, symmetric, no visual pulsations or palpable masses, negative for discoloration or tenderness, active bowel sounds Extremities: Without edema Neurologic: Alert, oriented x3, follows simple commands without difficulty, pupils equal and reactive to light 4 mm Musculoskeletal: Moving all extremities without limitations with left side 4/5 and right side 5/5 muscle strength Skin: Warm, dry, without rash, nails pink, no clubbing or cyanosis Lab Results 04/20 06:54 WBC: 7.4 Hgb: 15.0 Hct: 45.1 Platelet: 251 Neutrophil %: 51.3 Glucose Level: 114 Sodium Level: 140 Potassium Level: 4.0 BUN: 20 H Creatinine Lvl (s): 1.29 Imaging Results and Diagnostics CT Head or Brain w/o Contrast Result Date: April 20, 2024 Verified By: MATILDE CORNELIUS MD CLINICAL STATEMENT: IMPRESSION: Right parietal intraparenchymal hematoma with intraventricular extension and trace subarachnoid hemorrhage. EKG EC04/20/24: Sinus rhythm Borderline prolonged ME interval Borderline left axis deviation Electronic Signature: HAWA ROSE DO 04/20/2024 07:21:23 Assessment/Plan Assessment: 1. Right parietal intraparenchymal hematoma with intraventricular extension and trace subarachnoid hemorrhage. 2. 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 CAD status post PCI with drug-eluting stent to LAD on 04/19/2024 on aspirin and Prasugrel 4. Hypertension 5. History of neurocardiogenic syncope, second-degree AV block, TARIK, prediabetes and nonalcoholic hepatosteatosis 6. GI prophylaxis 7. DVT prophylaxis 8. CODE STATUS Plan: 1. Plan for follow-up CT of the head in a.m. per neurosurgery. 2. Hydralazine as needed to maintain systolic blood pressure below 140 with a continuous infusion of Cardene if needed. 3. Continue to hold all antiplatelets until cleared by neurosurgery. 1 unit of platelets to be given per neurosurgery due to aspirin and Effient given yesterday 4. Home dose metoprolol will be restarted at 25mg twice daily with a hold HR of 60 and as needed clonidine will be held 5. [facility] Glycemic protocol for prediabetes 6. Protonix 40 mg IV daily 7. SCDs for DVT prophylaxis, chemical prophylaxis will be held until cleared by neurosurgery 9. CBC, BMP, Coag panel in am 8. FULL CODE Problem List/Past Medical History Ongoing Dysphagia Erectile dysfunction Essential hypertension Exposure to varicella zoster virus (VZV) Family history of amyotrophic lateral sclerosis Family history of colon cancer Generalized anxiety disorder Holter monitor, abnormal (2nd deg AV-block) Insomnia Left carotid artery stenosis Low T4 Major depressive disorder, recurrent Masks: declines in-person appointments during mask required times Mixed hyperlipidemia Mobitz type 1 second degree AV block Neurocardiogenic syncope Nonalcoholic hepatosteatosis NSAID long-term use Oral mucosal lesion TARIK (obstructive sleep apnea), Inspire, intolerant to CPAP Post-nasal drip Prediabetes Raynaud disease S/P carpal tunnel release Seasonal allergies Syncopal episodes Tachycardia Throat fullness Tricuspid valve regurgitation Procedure/Surgical History Other: 1991 Inguinal hernia Medications Inpatient morphine, 2 mg= 1 mL, IV Push, Once NS 500 mL 500 mL, 500 mL, Intravenous Home Alpha Lipoic 100 mg oral tablet, Oral, BID aspirin 81 mg oral delayed release tablet, 81 mg= 1 tab(s), Oral, Daily, 11 refills atorvastatin 40 mg oral tablet, 40 mg= 1 tab(s), Oral, qDay cloNIDine 0.1 mg oral tablet, 0.1 mg= 1 tab(s), Oral, TID, 2 refills Effient 10 mg oral tablet, 10 mg= 1 tab(s), Oral, Daily, 11 refills Fish Oil 1000 mg oral capsule, Oral garlic oral capsule irbesartan 75 mg oral tablet, 75 mg= 1 tab(s), Oral, qDay, 1 refills Metamucil, Oral metoprolol succinate 50 mg oral TABLET extended release, 50 mg= 1 tab(s), Oral, BID, 2 refills mirtazapine 30 mg oral tablet nitroglycerin 0.4 mg sublingual tablet, 0.4 mg= 1 tab(s), Sublingual, q5min, PRN nutritional supplement nutritional supplement omeprazole 20 mg oral delayed release capsule, 20 mg= 1 cap(s), Oral, qDay, 1 refills Quercitin Vitamin B12 50 mcg oral tablet, 50 mcg= 1 tab(s), Oral, qDay Vitamin C 25 mg oral tablet, chewable, 25 mg= 1 tab(s), Chewed, qDay Vitamin D3, 50 mcg= 1 tab(s), Oral, Daily vitamin E 100 intl units oral capsule, 100 International_Unit= 1 cap(s), Oral, Daily, Not taking zinc (as acetate) 50 mg oral capsule, 50 mg= 1 cap(s), Oral, TID, Not taking Zyrtec 10 mg oral tablet, 10 mg= 1 tab(s), Oral, qDay Allergies NKA Social History Smoking Status - 08/18/2014 Never smoker Alcohol Use: Current. 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 Juliet Grant's daughter, lives with them the most., 10/23/2020 Nutrition/Health Caffeine intake amount: 1 serving per day., 03/22/2019 Substance Abuse Use: Current. Frequency: Daily., 11/05/2023 Tobacco Nicotine Use: Never (less than 100 in lifetime)., 07/15/2023 Family History Arthritis: Sister. Heart attack: Father. Health Status Family Member(s) Family Member(s) Relationship: Father, Age: 54 Years Relationship: Paternal Grandfather, Age: 90 Years, Cause: old age Relationship: Mother, Name: Mark Martini, Age: 92 Years, Cause: COVID, sepsis Immunizations tetanus/diphth/pertuss (Tdap) adult/adol: 0 unknown unit (10/19/12) Digitally Signed by AMARIS AREVALO on 04/20/2024 11:48 AM Digitally Signed by MAXX DONNELLY MD on 04/20/2024 11:59 AM [facility]09-05-2024 Critical care medicine Consult note Date of Service 04/20/2024 Reason for Consultation Medical management while in the surgical intensive care unit Referring Physician Dr. Ryder History of Present Illness Tracy Cardoso is a 68-year-old male with a past medical history significant for CAD status post PCIwith drug-eluting stent to LAD on 04/19/2024 (on aspirin and Prasugrel), Nuclear med myocardial stress test with LVEF 56% with normal wall motion on 03/31/2024, Neurocardiogenic syncope, second-degree AV block, hypertension, left carotid stenosis, mixed hyperlipidemia, subdural hematoma status post skiing accident, obstructive sleep apnea with inspire therapy (intolerant to CPAP), activity induced asthma, prediabetes, nonalcoholic hepatosteatosis, GERD status post laparoscopic Rosa fundoplication, anxiety and major depressive disorder. He presented to [facility] emergency department for altered mental status. Per ED note patient had really bad headache before going to bed last night and woke up this morning confused. A CT of the head was completed showing a right parietal intraparenchymal hematoma with intraventricular extension and a trace subarachnoid hemorrhage. The case was discussed with Dr. Ryder from neurosurgery who accepted the patient's transfer to the surgical intensive care unit at [place]. Dr. Winchester, ED physicianalso spoke with Dr. Casper from cardiology regarding stent placement yesterday (04/19) and it was decided to hold all antiplatelets without reversal at this time to lessen the chance of acute stent thrombosis. He received 325 mg of aspirin, 60 mg of Effient and 14,000 units of heparin bolus for the heart cath yesterday. Pro time 11.6 with INR of 1.0. Troponin negative at 74 with EKG interpretation sinus rhythm with borderline prolonged ME interval and borderline left axis deviation. Upon his arrival to the surgical intensive care unit he appeared to be in no acute distress, on room air with a pulse ox reading of 96%, heart rate 66 with a systolic blood pressure of 156, as neededhydralazine ordered. Review of Systems Constitutional: Denies fever, chills or sweats, weight loss Eyes: Denies blurriness, double vision, loss of vision or pain Ears, nose, mouth and throat: Denies loss of hearing, runny nose or sore throat Cardiovascular: Positive numbness and tingling of toes/fingers in the evening, denies chest pain, shortness of breath, palpitations, or dizziness Respiratory: Denies cough, shortness of breath, or wheezing, denies pain with breathing Gastrointestinal: Denies nausea, vomiting, bloating, constipation, diarrhea, rectal problems or change in stool color Genitourinary: Denies frequency, burning, hematuria, retention Musculoskeletal: Denies joint pain, swelling, redness, decreased or loss of movement Skin: Denies lesions, left rash, itching, bleeding or bruising Neurological: Positive headache and forgetfulness last night, denies dizziness, lightheadedness, orseizures Physical Exam Vitals and Measurements T: 37.6 C (Oral) HR: 70 RR: 18 BP: 133/91 SpO2: 96% HT: 165.1 cm WT: 93.2 kg Weight Dosing Weight: 93.2 kg (04/20/24) General: Alert, follows simple commands, appears in no acute distress HEENT: Normocephalic, atraumatic, no masses or lesions palpable, no eye pain, swelling, drainage, or sclera edema, lips pink and moist with no lesions, no ear drainage or pain, no nasal drainage, mouth without lesions Neck: Symmetric, no masses or lesions, trachea midline Cardiovascular: Strong regular S1 and S2, no murmur, no circumoral stenosis, capillary refill less than 2 seconds, peripheral pulses palpable Respirations: Thoracic symmetric with good expansion, respirations easy, regular no retraction, no adventitious breath sounds Abdomen: Round, symmetric, no visual pulsations or palpable masses, negative for discoloration or tenderness, active bowel sounds Extremities: Without edema Neurologic: Alert, oriented x3, follows simple commands without difficulty, pupils equal and reactive to light 4 mm Musculoskeletal: Moving all extremities without limitations with left side 4/5 and right side 5/5 muscle strength Skin: Warm, dry, without rash, nails pink, no clubbing or cyanosis Lab Results 04/20 06:54 WBC: 7.4 Hgb: 15.0 Hct: 45.1 Platelet: 251 Neutrophil %: 51.3 Glucose Level: 114 Sodium Level: 140 Potassium Level: 4.0 BUN: 20 H Creatinine Lvl (s): 1.29 Imaging Results and Diagnostics CT Head or Brain w/o Contrast Result Date: April 20, 2024 Verified By: MATILDE CORNELIUS MD CLINICAL STATEMENT: IMPRESSION: Right parietal intraparenchymal hematoma with intraventricular extension and trace subarachnoid hemorrhage. EKG EC04/20/24: Sinus rhythm Borderline prolonged ME interval Borderline left axis deviation Electronic Signature: HAWA ROSE 04/20/2024 07:21:23 Assessment/Plan Assessment: 1. Right parietal intraparenchymal hematoma with intraventricular extension and trace subarachnoid hemorrhage. 2. 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 CAD status post PCI with drug-eluting stent to LAD on 04/19/2024 on aspirin and Prasugrel 4. Hypertension 5. History of neurocardiogenic syncope, second-degree AV block, TARIK, prediabetes and nonalcoholic hepatosteatosis 6. GI prophylaxis 7. DVT prophylaxis 8. CODE STATUS Plan: 1. Plan for follow-up CT of the head in a.m. per neurosurgery. 2. Hydralazine as needed to maintain systolic blood pressure below 140 with a continuous infusion of Cardene if needed. 3. Continue to hold all antiplatelets until cleared by neurosurgery. 1 unit of platelets to be given per neurosurgery due to aspirin and Effient given yesterday 4. Home dose metoprolol will be restarted at 25mg twice daily with a hold HR of 60 and as needed clonidine will be held 5. [facility] Glycemic protocol for prediabetes 6. Protonix 40 mg IV daily 7. SCDs for DVT prophylaxis, chemical prophylaxis will be held until cleared by neurosurgery 9. CBC, BMP, Coag panel in am 8. FULL CODE Problem List/Past Medical History Ongoing Dysphagia Erectile dysfunction Essential hypertension Exposure to varicella zoster virus (VZV) Family history of amyotrophic lateral sclerosis Family history of colon cancer Generalized anxiety disorder Holter monitor, abnormal (2nd deg AV-block) Insomnia Left carotid artery stenosis Low T4 Major depressive disorder, recurrent Masks: declines in-person appointments during mask required times Mixed hyperlipidemia Mobitz type 1 second degree AV block Neurocardiogenic syncope Nonalcoholic hepatosteatosis NSAID long-term use Oral mucosal lesion TARIK (obstructive sleep apnea), Inspire, intolerant to CPAP Post-nasal drip Prediabetes Raynaud disease S/P carpal tunnel release Seasonal allergies Syncopal episodes Tachycardia Throat fullness Tricuspid valve regurgitation Procedure/Surgical History Other: 1991 Inguinal hernia Medications Inpatient morphine, 2 mg= 1 mL, IV Push, Once NS 500 mL 500 mL, 500 mL, Intravenous Home Alpha Lipoic 100 mg oral tablet, Oral, BID aspirin 81 mg oral delayed release tablet, 81 mg= 1 tab(s), Oral, Daily, 11 refills atorvastatin 40 mg oral tablet, 40 mg= 1 tab(s), Oral, qDay cloNIDine 0.1 mg oral tablet, 0.1 mg= 1 tab(s), Oral, TID, 2 refills Effient 10 mg oral tablet, 10 mg= 1 tab(s), Oral, Daily, 11 refills Fish Oil 1000 mg oral capsule, Oral garlic oral capsule irbesartan 75 mg oral tablet, 75 mg= 1 tab(s), Oral, qDay, 1 refills Metamucil, Oral metoprolol succinate 50 mg oral TABLET extended release, 50 mg= 1 tab(s), Oral, BID, 2 refills mirtazapine 30 mg oral tablet nitroglycerin 0.4 mg sublingual tablet, 0.4 mg= 1 tab(s), Sublingual, q5min, PRN nutritional supplement nutritional supplement omeprazole 20 mg oral delayed release capsule, 20 mg= 1 cap(s), Oral, qDay, 1 refills Quercitin Vitamin B12 50 mcg oral tablet, 50 mcg= 1 tab(s), Oral, qDay Vitamin C 25 mg oral tablet, chewable, 25 mg= 1 tab(s), Chewed, qDay Vitamin D3, 50 mcg= 1 tab(s), Oral, Daily vitamin E 100 intl units oral capsule, 100 International_Unit= 1 cap(s), Oral, Daily, Not taking zinc (as acetate) 50 mg oral capsule, 50 mg= 1 cap(s), Oral, TID, Not taking Zyrtec 10 mg oral tablet, 10 mg= 1 tab(s), Oral, qDay Allergies NKA Social History Smoking Status - 08/18/2014 Never smoker Alcohol Use: Current. 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 Juliet Grant's daughter, lives with them the most., 10/23/2020 Nutrition/Health Caffeine intake amount: 1 serving per day., 03/22/2019 Substance Abuse Use: Current. Frequency: Daily., 11/05/2023 Tobacco Nicotine Use: Never (less than 100 in lifetime)., 07/15/2023 Family History Arthritis: Sister. Heart attack: Father. Health Status Family Member(s) Family Member(s) Relationship: Father, Age: 54 Years Relationship: Paternal Grandfather, Age: 90 Years, Cause: old age Relationship: Mother, Name: Mark Martini, Age: 92 Years, Cause: COVID, sepsis Immunizations tetanus/diphth/pertuss (Tdap) adult/adol: 0 unknown unit (10/19/12) Digitally Signed by AMARIS AREVALO on 04/20/2024 11:48 AM Digitally Signed by MAXX DONNELLY MD on 04/20/2024 11:59 AM [facility]09-05-2024 Hospital Discharge instructions Follow Up Care 04/20/2024 06:33:34 With:REGIS PHILLIPS DO Address: [address] [place] [address] [place] [address]- [phone] When:2-4 days [facility] 09-05-2024 Note ORIGINAL EXAMINATION: CT OF THE HEAD WITHOUT CONTRAST 04/20/2024 7:13 am TECHNIQUE: CT of the head was performed without the administration of intravenous contrast. Automated exposure control, iterative reconstruction, and/or weight based adjustment of the mA/kV was utilized to reduce the radiation dose to as low as reasonably achievable. COMPARISON: None. HISTORY: ORDERING SYSTEM PROVIDED HISTORY: Reason for Exam: change in mental status/weakness/aphasia FINDINGS: BRAIN/VENTRICLES: There is 4.7 cm right parietal intraparenchymal hematoma. Hemorrhage is present within the right lateral ventricle. Trace subarachnoid hemorrhage is noted as well. There is surrounding edema without significant shift of the midline structures. There is no effacement of the basal cisterns. No left hemispheric lesion is identified. The posterior fossa structures appear unremarkable. ORBITS: The visualized portion of the orbits demonstrate no acute abnormality. SINUSES: The visualized paranasal sinuses and mastoid air cells demonstrate no acute abnormality. SOFT TISSUES/SKULL: No acute abnormality of the visualized skull or soft tissues. IMPRESSION: Right parietal intraparenchymal hematoma with intraventricular extension and trace subarachnoid hemorrhage. Findings discussed with emergency room physician 07:45 a.m. Interpreted by: Matilde Cornelius Preliminary Report By: Matilde Cornelius Electronically signed By Matilde Cornelius Dictated Date: 04/20/2024 7:38:52 AM Prelim Date: 04/20/2024 7:45:22 AM Sign Date: 04/20/2024 7:45:22 AM [facility]ing [facility] Sinus rhythm Borderline prolonged ME interval Borderline left axis deviation Electronic Signature: HAWA ROSE DO 04/20/2024 07:21:23[facility] 09-04-2024 Hospital Discharge instructions Patient Education 04/19/2024 13:37:38 3- Heart Cath/PCI radial (05/2018) (CUSTOM) HEART CATHETERIZATION/PCI (radial) Discharge Instructions DIET Drink plenty of fluids for the next 48 hours to help your kidneys flush the heart cath dye out of your system ACTIVITY For the next 48 hours: Do not deep bend the wrist Do not lift, push, or pull anything over 5 pounds for 5 days Do not use the hand/arm to support your weight when rising from a chair or bed Do not drive For the next 7 days: Do not submerse your procedure site in water Do not swim, wash dishes, or take tub baths You may write, eat, type, and shower WOUND CARE You will go home with a dressing over your procedure site. After 24 hours, remove dressing, shower,and place a Band-Aid over your procedure site. Keep a Band-Aid on your procedure site for the next 3-4 days Change the Band-Aid daily or if it gets wet/soiled AFTER YOU GO HOME, CALL YOUR DOCTOR FOR: Any increase in bruising or tenderness from the procedure site Any redness, pus, or other signs of infection at the site A temperature above 100.5 Severe pain at the site DIAL 911 AND RETURN TO THE HOSPITAL FOR: Any bleeding from the procedure site. The site may be bruised or tender, but it should not be bleeding at any time. If your site begins to bleed, hold firm pressure on it and dial 911 to return to the hospital Any increase in swelling at the procedure site. An increase in swelling could mean the area is bleeding under the skin. Hold firm pressure to the site and dial 911 to return to the hospital Document Released: 08/02/2006 Document Revised: 07/19/2013 Document Reviewed: 08/03/2014 ExitCare Patient Information 2015 [employer]. This information is not intended to replace advicegiven to you by your health care provider. Make sure you discuss any questions you have with your health care provider. 04/19/2024 13:36:39 Moderate Conscious Sedation, Adult, Care After Moderate Conscious Sedation, Adult, Care After These instructions provide you with information about caring for yourself after your procedure. Your health care provider may also give you more specific instructions. Your treatment has been plannedaccording to current medical practices, but problems sometimes occur. Call your health care provider if you have any problems or questions after your procedure. What can I expect after the procedure? After your procedure, it is common: To feel sleepy for several hours. To feel clumsy and have poor balance for several hours. To have poor judgment for several hours. To vomit if you eat too soon. Follow these instructions at home: For at least 24 hours after the procedure: Do not: ?Participate in activities where you could fall or become injured. ?Drive. ?Use heavy machinery. ?Drink alcohol. ?Take sleeping pills or medicines that cause drowsiness. ?Make important decisions or sign legal documents. ?Take care of children on your own. Rest. Eating and drinking Follow the diet recommended by your health care provider. If you vomit: ?Drink water, juice, or soup when you can drink without vomiting. ?Make sure you have little or no nausea before eating solid foods. General instructions Have a responsible adult stay with you until you are awake and alert. Take wjrn-vse-pqjrhij and prescription medicines only as told by your health care provider. If you smoke, do not smoke without supervision. Keep all follow-up visits as told by your health care provider. This is important. Contact a health care provider if: You keep feeling nauseous or you keep vomiting. You feel light-headed. You develop a rash. You have a fever. Get help right away if: You have trouble breathing. This information is not intended to replace advice given to you by your health care provider. Make sure you discuss any questions you have with your health care provider. Document Released: 05/23/2014 Document Revised: 07/15/2018 Document Reviewed: 11/21/2016 [employer] Patient Education 2020 [employer]. Follow Up Care 04/11/2024 10:52:00 With:DEVAN CASPER MD Address: [address] [facility] [address] [facility] [place] [address]- [phone] When:05/16/2024 10:00:00 Comments:THIS APPOINTMENT WILL BE WITH NANDA MEDEROS CNP [facility] 09-04-2024 Summary of episode note Discharge Instructions Thank you for allowing [facility] to assist you with your healthcare needs. The following is importantdischarge information regarding your hospital visit. Your Care Team REGIS PHILLIPS DO What to do next Scheduled Follow-Up Appointments Appointment Type When With Where Contact Information StatusPC Nurse Lab 05/02/2024 08:30 AM EDT [address] [phone] Confirmed PC OV 05/05/2024 12:30 PM EDT REGIS PHILLIPS DO [address] [phone] Confirmed CV OV 05/16/2024 10:00 AM ED[facility] Follow Up with DEVAN CASPER MD When:05/16/2024 10:00 AM EDT Where:[address] [facility] [address] [facility] [place] [address]- [phone] Additional Information: THIS APPOINTMENT WILL BE WITH NANDA MEDEROS CNP Allergies NKA Medications Please ask your primary doctor or pharmacist before taking any other medication not listed, including over the counter drugs, herbal medications, vitamins and or supplements as they may interact withyo home medications. What How Much When Why Instructions Last Dose New aspirin (aspirin 81 mg oral delayed release tablet) 1 tab(s) by mouth Every day Refills: 11 Pickup at [facility] New prasugrel (Effient 10 mg oral tablet) 1 tab(s) by mouth Every day Refills: 11 Pickup at [facility] Unchanged alpha-lipoic acid (Alpha Lipoic 100 mg oral tablet) by mouth Two (2) times a day Unchanged ascorbic acid (Vitamin C 25 mg oral tablet, chewable) 1 tab(s) Chewed Once a day Unchanged atorvastatin (atorvastatin 40 mg oral tablet) 1 tab(s) by mouth Once a day Unchanged cetirizine (Zyrtec 10 mg oral tablet) 1 tab(s) by mouth Once a day Chest congestion Post-nasal drip Unchanged cholecalciferol (Vitamin D3) 50 Microgram by mouth Every day Unchanged cloNIDine (cloNIDine 0.1 mg oral tablet) 1 tab(s) by mouth Three (3) times a day Preventative health care Colon cancer screening Take for BP > 150 systolic or > 90 diastolic, or 30-60 min before stressful events Unchanged cyanocobalamin (Vitamin B12 50 mcg oral tablet) 1 tab(s) by mouth Once a day Unchanged herbal/ nutritional product (garlic oral capsule) Unchanged herbal/ nutritional product (Quercitin) Unchanged irbesartan (irbesartan 75 mg oral tablet) 1 tab(s) by mouth Once a day Essential hypertension Mixed hyperlipidemia If BP remains elevated greater than 140 systolic, 90 diastolic increase to 150 mg once daily Unchanged metoprolol (metoprolol succinate 50 mg oral TABLET extended release) 1 tab(s) by mouth Two (2) times a day Do not crush or chew (controlled release) Unchanged mirtazapine (mirtazapine 30 mg oral tablet) TAKE ONE TABLET BY MOUTH NIGHTLY Unchanged nitroGLYcerin (nitroglycerin 0.4 mg sublingual tablet) 1 tab(s) under the tongue Every 5 minutes as needed for for chest pain If chest pain not relieved in 5 minutes after first dose, seek immediate medical attention Unchanged nutritional supplement Cayenne Unchanged nutritional supplement Unchanged omega-3 polyunsaturated fatty acids (Fish Oil 1000 mg oral capsule) by mouth Unchanged omeprazole (omeprazole 20 mg oral delayed release capsule) 1 cap by mouth Once a day Essential hypertension Mixed hyperlipidemia Take daily after dinner, monitor chest/ congestion symptoms laying down Unchanged psyllium (Metamucil) by mouth takes with magnesium Unchanged vitamin E (vitamin E 100 intl units oral capsule) 1 cap by mouth Every day Unchanged zinc acetate (zinc (as acetate) 50 mg oral capsule) 1 cap by mouth Three (3) times a day Pharmacy Information [facility]: [address], [place] [id number] [phone] Please take this list to your next doctor s visit. Bring all medications you take, including over the counter medications, herbals and other supplements with you to your doctor s visit. Patients and families are reminded to discard old lists and to update any records with all medication providers or retail pharmacies. Medication Leaflets prasugrel (PRA darren grel) Effient What is the most important information I should know about prasugrel? Prasugrel increases your risk of bleeding, which can be severe or life- threatening. Call your doctor or seek emergency medical attention if you have bleeding that will not stop, if you have black or bloody stools, or if you cough up blood or vomit that looks like coffee grounds. You may need to stop using the medicine for a short time before any surgery or dental treatment. Donot stop taking prasugrel unless your doctor tells you to. What is prasugrel? Prasugrel is used in people who've had a balloon angioplasty to open blocked arteries after having a heart attack or severe chest pain. Prasugrel may help lower your risk of having another heart attack or stroke. Prasugrel may also be used for other purposes not listed in this medication guide. What should I discuss with my healthcare provider before taking prasugrel? You should not use prasugrel if you are allergic to it, or if you have: active bleeding such as a stomach ulcer or bleeding in the brain (such as from a head injury); a history of stroke, including TIA ('mini-stroke'); or if you are scheduled to have surgery, especially heart bypass surgery (coronary artery bypass graft, or CABG). Tell your doctor if you have ever had: a stomach ulcer, colon polyps, or diverticulosis; bleeding problems; surgery, an injury, or a medical emergency; liver or kidney disease; if you are allergic to clopidogrel or ticlopidine; if you weigh less than 132 pounds (60 kilograms); or if you also use other medicines to treat or prevent blood clots. Tell your doctor if you are or . How should I take prasugrel? Follow all directions on your prescription label and read all medication guides or instruction sheets. Use the medicine exactly as directed. If you also take aspirin, follow your doctor's instructions about how much to take and for how long. Prasugrel can be taken with or without food. Swallow the tablet whole and do not crush, chew, or break it. Because prasugrel keeps your blood from clotting, this medicine can also make it easier for you to bleed, even from a minor injury. Seek emergency medical attention if you have any bleeding that willnot stop. Tell your doctor if you have a planned surgery or dental work. Do not stop using prasugrel without your doctor's advice, even if you feel fine. Stopping this medicine too soon may increase your risk of a blood clot, heart attack, or . Store at room temperature away from moisture and heat. Keep the tablets in their original container, along with the packet or canister of moisture-absorbing preservative. What happens if I miss a dose? Take the medicine as soon as you can, but skip the missed dose if it is almost time for your next dose. Do not take two doses at one time. What happens if I overdose? Seek emergency medical attention or call the Poison Help line at . What should I avoid while taking prasugrel? Avoid activities that may increase your risk of bleeding or injury. Use extra care while shaving orbrushing your teeth. Ask your doctor before taking a nonsteroidal anti-inflammatory drug (NSAID) such as aspirin, ibuprofen, naproxen, Advil, Aleve, Motrin, and others. Using an NSAID with prasugrel may cause you to bruise or bleed easily. What are the possible side effects of prasugrel? Get emergency medical help if you have signs of an allergic reaction: hives; dizziness, chest pain,difficulty breathing; swelling of your face, lips, tongue, or throat. Prasugrel increases your risk of bleeding, which can be severe or life-threatening. Call your doctor at once if you have: a light-headed feeling, like you might pass out; any bleeding that will not stop; pink or brown urine; signs of a serious blood-clotting problem--pale skin, purple spots under your skin or on your mouth, fever, fast heart rate, weakness, stomach pain, trouble breathing, jaundice (yellowing of the skinor eyes); signs of stomach bleeding--bloody or tarry stools, coughing up blood or vomit that looks like coffee grounds; or signs of a stroke--sudden numbness or weakness (especially on one side of the body), sudden severe headache, slurred speech, problems with vision or balance. The risk of bleeding is higher in older adults. Common side effects may include: nosebleeds; or easy bruising or bleeding. This is not a complete list of side effects and others may occur. Call your doctor for medical advice about side effects. You may report side effects to FDA at 1-829-BUU-2970. What other drugs will affect prasugrel? Tell your doctor about all your other medicines, especially: opioid medication; or any other medicines to treat or prevent blood clots, including heparin or warfarin (Coumadin, Jantoven). This list is not complete. Other drugs may affect prasugrel, including prescription and jojn-pge-zuqirkv medicines, vitamins, and herbal products. Not all possible drug interactions are listed here. Where can I get more information? Your pharmacist can provide more information about prasugrel. Remember, keep this and all other medicines out of the reach of children, never share your medicines with others, and use this medication only for the indication prescribed. Every effort has been made to ensure that the information provided by [employer] ('[employer]') is accurate, up-to-date, and complete, but no guarantee is made to that effect. Drug information contained herein may be time sensitive. [employer] information has been compiled for use by healthcare practitioners and consumers in the [place] and therefore [employer] does not warrant that uses outside of the [place] are appropriate, unless specifically indicated otherwise. [employer] drug information does not endorse drugs, diagnose patients or recommend therapy. [employer] drug information isan informational resource designed to assist licensed healthcare practitioners in caring for their p atients and/or to serve consumers viewing this service as a supplement to, and not a substitute for, the expertise, skill, knowledge and judgment of healthcare practitioners. The absence of a warningfor a given drug or drug combination in no way should be construed to indicate that the drug or drug combination is safe, effective or appropriate for any given patient. [employer] does not assume any responsibility for any aspect of healthcare administered with the aid of information [employer] provides. The information contained herein is not intended to cover all possible uses, directions, precautions, warnings, drug interactions, allergic reactions, or adverse effects. If you have questions about the drugs you are taking, check with your doctor, nurse or pharmacist. Copyright 7121-7426 [employer] Version: 7.01. Revision Date: 01/22/2021. aspirin (oral) ( pir in) Aspi-Cor, Adina Plus, Durlaza, Ecotrin, Miniprin, Vazalore What is the most important information I should know about aspirin? Aspirin can cause Emily's syndrome, a serious and sometimes fatal condition in children. What is aspirin? Aspirin is a salicylate (if-IFF-pc-ate) that is used to treat pain, and reduce fever or inflammation. Aspirin is sometimes used to treat or prevent heart attacks, strokes, and chest pain (angina). Aspirin should be used for these conditions only under the supervision of a doctor. Aspirin may also be used for purposes not listed in this medication guide. What should I discuss with my healthcare provider before taking aspirin? Using aspirin in a child or teenager with flu symptoms or chickenpox can cause a serious or fatal condition called Emily's syndrome. You should not use aspirin if you are allergic to it, or if you have: a recent history of stomach or intestinal bleeding; a bleeding disorder such as hemophilia; or if you have ever had an asthma attack or severe allergic reaction after taking aspirin or an NSAID (non-steroidal anti-inflammatory drug). Tell your doctor if you have ever had: asthma or seasonal allergies; stomach ulcers; liver disease; kidney disease; a bleeding or blood clotting disorder; gout; or heart disease, high blood pressure, or congestive heart failure. Taking aspirin during late may cause bleeding in the mother or the baby during delivery. Tell your doctor if you are or plan to become . You should not breastfeed while using this medicine. How should I take aspirin? Use exactly as directed on the label, or as prescribed by your doctor. Always follow directions on the medicine label about giving aspirin to a child. Take with food if aspirin upsets your stomach. You must chew the chewable tablet before you swallow it. Do not crush, chew, break, or open an enteric-coated or delayed/extended-release pill. Swallow it whole. Tell your doctor if you have a planned surgery. Store at room temperature away from moisture and heat. Do not use aspirin if you smell a strong vinegar odor in the aspirin bottle. The medicine may no longer be effective. What happens if I miss a dose? Aspirin is used when needed. If you are on a dosing schedule, skip any missed dose. Do not use two doses at one time. What happens if I overdose? Seek emergency medical attention or call the Poison Help line at . Overdose may cause stomach pain, vomiting, diarrhea, vision or hearing problems, fast or slow breathing, or confusion. What should I avoid while taking aspirin? Avoid alcohol. Heavy drinking can increase your risk of stomach bleeding. Avoid taking ibuprofen if you take aspirin to prevent stroke or heart attack. Ibuprofen can make aspirin less effective in protecting your heart and blood vessels. Ask your doctor how far apart your doses should be. Ask a doctor or pharmacist before using other medicines for pain, fever, swelling, or cold/flu symptoms. They may contain ingredients similar to aspirin (such as magnesium salicylate, ibuprofen, ketoprofen, or naproxen). What are the possible side effects of aspirin? Get emergency medical help if you have signs of an allergic reaction: hives; difficult breathing; swelling of your face, lips, tongue, or throat. Stop using aspirin and call your doctor at once if you have: ringing in your ears, confusion, hallucinations, rapid breathing, seizure (convulsions); severe nausea, vomiting, or stomach pain; bloody or tarry stools, coughing up blood or vomit that looks like coffee grounds; fever lasting longer than 3 days; or swelling, or pain lasting longer than 10 days. Common side effects may include: upset stomach, heartburn; drowsiness; or mild headache. This is not a complete list of side effects and others may occur. Call your doctor for medical advice about side effects. You may report side effects to FDA at 8-587-JDI-8809. What other drugs will affect aspirin? Ask your doctor before using aspirin if you take an antidepressant. Taking certain antidepressants with aspirin may cause you to bruise or bleed easily. Ask a doctor or pharmacist before using aspirin with any other medications, especially: a blood thinner (warfarin, Coumadin, Jantoven), or other medication used to prevent blood clots; or other salicylates such as Nuprin Backache Caplet, Kaopectate, KneeRelief, Pamprin Cramp Formula, Pepto-Bismol, Tricosal, Trilisate, and others. This list is not complete. Other drugs may affect aspirin, including prescription and qwuo-zcf-jlhefib medicines, vitamins, and herbal products. Not all possible drug interactions are listed here. Where can I get more information? Your pharmacist can provide more information about aspirin. Remember, keep this and all other medicines out of the reach of children, never share your medicines with others, and use this medication only for the indication prescribed. Every effort has been made to ensure that the information provided by [employer] ('[employer]') is accurate, up-to-date, and complete, but no guarantee is made to that effect. Drug information contained herein may be time sensitive. [employer] information has been compiled for use by healthcare practitioners and consumers in the [place] and therefore [employer] does not warrant that uses outside of the [place] are appropriate, unless specifically indicated otherwise. [employer] drug information does not endorse drugs, diagnose patients or recommend therapy. [employer] drug information isan informational resource designed to assist licensed healthcare practitioners in caring for their p atients and/or to serve consumers viewing this service as a supplement to, and not a substitute for, the expertise, skill, knowledge and judgment of healthcare practitioners. The absence of a warningfor a given drug or drug combination in no way should be construed to indicate that the drug or drug combination is safe, effective or appropriate for any given patient. [employer] does not assume any responsibility for any aspect of healthcare administered with the aid of information [employer] provides. The information contained herein is not intended to cover all possible uses, directions, precautions, warnings, drug interactions, allergic reactions, or adverse effects. If you have questions about the drugs you are taking, check with your doctor, nurse or pharmacist. Copyright 6802-6072 [employer] Version: 18.01. Revision Date: 03/08/2023. Education Materials HEART CATHETERIZATION/PCI (radial) Discharge Instructions DIET Drink plenty of fluids for the next 48 hours to help your kidneys flush the heart cath dye out of your system ACTIVITY For the next 48 hours: Do not deep bend the wrist Do not lift, push, or pull anything over 5 pounds for 5 days Do not use the hand/arm to support your weight when rising from a chair or bed Do not drive For the next 7 days: Do not submerse your procedure site in water Do not swim, wash dishes, or take tub baths You may write, eat, type, and shower WOUND CARE You will go home with a dressing over your procedure site. After 24 hours, remove dressing, shower,and place a Band-Aid over your procedure site. Keep a Band-Aid on your procedure site for the next 3-4 days Change the Band-Aid daily or if it gets wet/soiled AFTER YOU GO HOME, CALL YOUR DOCTOR FOR: Any increase in bruising or tenderness from the procedure site Any redness, pus, or other signs of infection at the site A temperature above 100.5 Severe pain at the site DIAL 911 AND RETURN TO THE HOSPITAL FOR: Any bleeding from the procedure site. The site may be bruised or tender, but it should not be bleeding at any time. If your site begins to bleed, hold firm pressure on it and dial 911 to return to the hospital Any increase in swelling at the procedure site. An increase in swelling could mean the area is bleeding under the skin. Hold firm pressure to the site and dial 911 to return to the hospital Document Released: 08/02/2006 Document Revised: 07/19/2013 Document Reviewed: 08/03/2014 ExitCare Patient Information 2015 [employer]. This information is not intended to replace advicegiven to you by your health care provider. Make sure you discuss any questions you have with your health care provider. Moderate Conscious Sedation, Adult, Care After These instructions provide you with information about caring for yourself after your procedure. Your health care provider may also give you more specific instructions. Your treatment has been plannedaccording to current medical practices, but problems sometimes occur. Call your health care provider if you have any problems or questions after your procedure. What can I expect after the procedure? After your procedure, it is common: To feel sleepy for several hours. To feel clumsy and have poor balance for several hours. To have poor judgment for several hours. To vomit if you eat too soon. Follow these instructions at home: For at least 24 hours after the procedure: Do not: ? Participate in activities where you could fall or become injured. ? Drive. ? Use heavy machinery. ? Drink alcohol. ? Take sleeping pills or medicines that cause drowsiness. ? Make important decisions or sign legal documents. ? Take care of children on your own. Rest. Eating and drinking Follow the diet recommended by your health care provider. If you vomit: ? Drink water, juice, or soup when you can drink without vomiting. ? Make sure you have little or no nausea before eating solid foods. General instructions Have a responsible adult stay with you until you are awake and alert. Take hznk-joy-nsmjjuu and prescription medicines only as told by your health care provider. If you smoke, do not smoke without supervision. Keep all follow-up visits as told by your health care provider. This is important. Contact a health care provider if: You keep feeling nauseous or you keep vomiting. You feel light-headed. You develop a rash. You have a fever. Get help right away if: You have trouble breathing. This information is not intended to replace advice given to you by your health care provider. Make sure you discuss any questions you have with your health care provider. Document Released: 05/23/2014 Document Revised: 07/15/2018 Document Reviewed: 11/21/2016 [employer] Patient Education 2020 [employer] Additional Information VACCINATE! IT SAVES LIVES! Members of the community who have not yet received the COVID-19 vaccine and would like to receive it can visit one of [facility] vaccine clinics. There are many vaccine clinic locations within the [facility]. For locations and available times, please visit [email or web address].[place].gov/. It is important to note that some COVID mobile vaccine clinics are held outdoors and may be canceled in rainy or stormy conditions. To learn more about pediatric vaccinations (ages 5-11), we invite you to visit the [facility] webpage. [email or web address].[email or web address].org/[email or web address]-[email or web address] stions.htmlTo learn more about the COVID-19 vaccine, we invite you to visit the CDC website for a list of frequently asked questions.https://www.cdc.gov/coronavirus/2019-ncov/vaccines/faq.html [facility] Patient Portal Access Instructions: Stay connected with your healthcare team and access your personal medical information anytime with the [facility] Patient Portal. Please follow the directions below to create your [facility] account: 1.Access the email account you provided upon registration to the hospital/physician office.2.Look for an invitation email from [facility].3.Open the email and access the invitation link: AcceptInvitation to [facility].4.Fill in the required becerra to create your account. To access your account, visit [employer]. Click the blue button labeled Access Patient Portal and then log in with the username and password that you created in the steps above. You will be able to view your test results, lab results, a summary of your visits, upcoming appointments and more. There is also a convenient messaging option where you can send secure messages to your p meinKaufvider. In addition, you will have the ability to download any documents or summaries to your computer and/or send the information securely to a physician. Remember that your healthcare information is confidential, so carefully consider who you will allowto register on the [facility] Patient Portal for access to your information. You can also access the [facility] Patient Portal on the [facility] shell. Simply click on Patient Portal and then log into your account. If you would like to receive a full copy of your medical records, please contact the [facility] Medical Records Department by calling [phone], Wednesday through Wednesday between 8 a.m. and 4:30 p.m. HOW TO SAFELY DISPOSE OF PRESCRIPTION MEDICATIONS Please use one of the following methods to safely dispose of your unused medications. 1.Use a drug disposal kit: the drug disposal pouch allows you to safely discard your old and unuseddrugs. Ask your nurse to give you one when you are discharged.2.Visit a local take-back location: Many local pharmacies and police departments have programs that collect old and unwanted prescriptiondrugs. Call your local pharmacy or go to http://[employer].Shaser/6P8Ew5c to find one close to you.3.Make use of household items: Use cat litter or old coffee grounds to dispose medications if other options arenot available. Mix your drugs with these household products, seal them in an airtight container andthrow it into the garbage. Call [facility]: [phone] to be sure your drugs can be disposed of in this way. Some medicines may require a different approach.4.Never flush your medications down the toilet. IF YOU HAVE BEEN PRESCRIBED AN OPIOID FOR PAIN If you have been prescribed an opioid (such as hydrocodone, oxycodone or morphine), it is critical to understand the possible side effects and risks of opioid pain medications. Even when taken as directed, opioids can have several side effects including: Tolerance, meaning you might need to take more of a medication for the same pain relief. Nausea, vomiting and/or constipation. Sleepiness, dizziness, dry mouth, confusion, depression or itching. Physical dependence, meaning you have withdrawal symptoms when a medication is stopped, can develop within a few days. KNOW YOUR RESPONSIBILITIES It is important to know exactly how much and how often to take the opioid pain medications you are prescribed. Never take opioids in higher amounts or more often than prescribed. Do not combine opioids with alcohol or other drugs that cause drowsiness, such as benzodiazepines, also known as benzos, including diazepam and alprazolam, muscle relaxants or sleep aids. Never sell or share prescription opioids. This is illegal. Store opioids in a secure place and out of reach of others (including children, family, friends and visitors). The last page of this document has been signed and retained as a CHART COPY. Signatures Patient Education Materials 3- Heart Cath/PCI radial (05/2018) (CUSTOM) Moderate Conscious Sedation, Adult, Care After Medication Leaflets prasugrel, aspirin (oral) My discharge plan and instructions have been reviewed and explained to me and IANA PAULA TIM D understand my current condition and have read and understand these discharge instructions. I have received a written copy of the plan/instructions. If I have questions, I am aware that I should contact my doctor. 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 Discharge summary Hospital Course 70% eccentric proximal LAD plaque, FFR positive at 0.74, corresponds to positive stress test. Successful placement of a 4.0 x 24 mm Stent to proximal LAD with ivus guidance. Post dilated to 4.3mm Continue aspirin life long continue effient 1 year. Allergies NKA Consults No qualifying data available. Objective Vitals and Measurements T: 36.8 C (Oral) HR: 63 RR: 16 BP: 165/93 SpO2: 95% HT: 166.4 cm WT: 93.2 kg BMI: 33.66 Weight Dosing Weight: 93.2 kg (04/19/24) Code Status No qualifying data available. Medications New Prescription aspirin (aspirin 81 mg oral delayed release tablet)1 tab(s) by mouth every day. Refills: 11. prasugrel (Effient 10 mg oral tablet)1 tab(s) by mouth every day. Refills: 11. Unchanged alpha-lipoic acid (Alpha Lipoic 100 mg oral tablet)by mouth two (2) times a day. ascorbic acid (Vitamin C 25 mg oral tablet, chewable)1 tab(s) Chewed once a day. atorvastatin (atorvastatin 40 mg oral tablet)1 tab(s) by mouth once a day. Refills: 0. cetirizine (Zyrtec 10 mg oral tablet)1 tab(s) by mouth once a day. Refills: 0. cholecalciferol (Vitamin D3)50 Microgram by mouth every day. cloNIDine (cloNIDine 0.1 mg oral tablet)1 tab(s) by mouth three (3) times a day. Take for BP > 150 systolic or > 90 diastolic, or 30-60 min before stressful events. Refills: 2. cyanocobalamin (Vitamin B12 50 mcg oral tablet)1 tab(s) by mouth once a day. herbal/nutritional product (garlic oral capsule) herbal/nutritional product (Quercitin) irbesartan (irbesartan 75 mg oral tablet)1 tab(s) by mouth once a day. If BP remains elevated greater than 140 systolic, 90 diastolic increase to 150 mg once daily. Refills: 1. metoprolol (metoprolol succinate 50 mg oral TABLET extended release)1 tab(s) by mouth two (2) timesa day. Do not crush or chew (controlled release). Refills: 2. mirtazapine (mirtazapine 30 mg oral tablet)TAKE ONE TABLET BY MOUTH NIGHTLY. nitroGLYcerin (nitroglycerin 0.4 mg sublingual tablet)1 tab(s) under the tongue every 5 minutes as needed for chest pain. If chest pain not relieved in 5 minutes after first dose, seek immediate medical attention. Refills: 0. nutritional supplementCayenne. nutritional supplement omega-3 polyunsaturated fatty acids (Fish Oil 1000 mg oral capsule)by mouth. omeprazole (omeprazole 20 mg oral delayed release capsule)1 cap by mouth once a day. Take daily after dinner, monitor chest/congestion symptoms laying down. Refills: 1. psyllium (Metamucil)by mouth. takes with magnesium. vitamin E (vitamin E 100 intl units oral capsule)1 cap by mouth every day. zinc acetate (zinc (as acetate) 50 mg oral capsule)1 cap by mouth three (3) times a day. Follow Up Follow Up with DEVAN CASPER MD When:05/16/2024 10:00 AM EDT Where:[address] [facility] [place] [address]- [phone] Additional Information: THIS APPOINTMENT WILL BE WITH NANDA MEDEROS CNP Follow Up Appointments No qualifying data available. Follow Up Labs/Studies Discharge Labs No Follow-up Labs Discharge Studies No Follow-up Studies Discharge Diet No qualifying data available. Discharge Activity No qualifying data available. Readmission Risk/Palliative Score No qualifying data available. Digitally Signed by DEVAN CASPER MD on 04/19/2024 10:[address] 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 Obstructive sleep apnea Subjective HPI: Hx of TARIK. Followed with Dr. Elias. Unable to tolerate masks Inspire Device inserted 10/07/[address] Steffen Layne tried for sleep- Trazodone, Mirtazapine, Amitriptyline, Lunesta, Seroquel, Ativan Device activated 11/30/23 He states last use was about 2 months ago He states that it felt like his tongue was coming out of his mouth and his neck was sore for days He still has some slurring of speech He states gummies work best for sleep REVIEW OF SYSTEMS: Review of Systems Constitutional: Negative. HENT: Negative. Eyes: Negative. Respiratory: Negative. Cardiovascular: Negative. Gastrointestinal: Negative. Endocrine: Negative. Genitourinary: Negative. Musculoskeletal: Negative. Skin: Negative. Allergic/Immunologic: Negative. Neurological: Negative. Hematological: Negative. Psychiatric/Behavioral: Positive for sleep disturbance. Allergies Allergen Reactions Pollen Extract Other Seasonal allergies. Outpatient Medications Prior to Visit Medication Sig Dispense Refill ALPHA LIPOIC ACID PO Take by mouth every morning (before breakfast). Ascorbic Acid (vitamin C) 1000 MG tablet Take 1,000 mg by mouth every morning (before breakfast). atorvastatin (Lipitor) 40 MG tablet Take 40 mg by mouth. B Cqjjrds-Ldfnva-GK (B COMPLEX 100 TR PO) Take by mouth every morning (before breakfast). cetirizine (ZyrTEC) 10 MG tablet Take by mouth every morning (before breakfast). cholecalciferol (Vitamin D-3) 125 MCG (5000 UT) capsule Take 5,000 Units by mouth daily. cloNIDine (Catapres) 0.1 MG tablet Take 0.1 mg by mouth Daily as needed. irbesartan (Avapro) 75 MG tablet 75 mg. Magnesium Ascorbate powder every morning (before breakfast). metoprolol succinate XL (Toprol-XL) 50 MG 24 hr tablet 50 mg Nightly. mirtazapine (Remeron) 30 MG tablet Take 1 tablet (30 mg) by mouth Nightly. 30 tablet 2 Probiotic Product (PROBIOTIC BLEND PO) Take by mouth every morning (before breakfast). psyllium (Metamucil) 0.36 g capsule daily. Vitamin E 100 units tablet Take by mouth every morning (before breakfast). zinc gluconate 50 MG tablet Take 100 mg by mouth daily. gabapentin (Neurontin) 400 MG capsule Take 1-2 caps po one hour prior to bedtime (Patient not taking: Reported on 12/21/2023) 60 capsule 11 guaiFENesin (Mucinex) 600 MG 12 hr tablet Take 1,200 mg by mouth every morning (before breakfast). Do not crush, chew, or split. QUERCETIN PO Take 400 mg by mouth every morning (before breakfast). No facility-administered medications prior to visit. Past Medical History: Diagnosis Date Anxiety not any more Arthritis Asthma Brain concussion numerous; skull fracture w/subdural hematoma 1976 Cluster headache occasionally, not frequent Colon polyp CTS (carpal tunnel syndrome) 20 years--surgery 03/06 Depression in the past Head injury 1967 Hyperlipidemia Hypertension Insomnia adulthood Irritable bowel syndrome Numbness left thigh, right foot/toe Restless leg syndrome years Sleep apnea 20-30 years DO NOT WEAR CPAP Syncope only when I cough Social History Tobacco Use Smoking status: Never Smokeless tobacco: Never Substance Use Topics Alcohol use: Yes Alcohol/week: 1.0 - 2.0 standard drink of alcohol Types: 1 - 2 Cans of beer per week Comment: Very occasional; go weeks and sometimes months without Past Surgical History: Procedure Laterality Date BICEPS TENDON REPAIR Left CARPAL TUNNEL RELEASE Right COLONOSCOPY ELBOW SURGERY HERNIA REPAIR Bilateral inguinal KNEE ARTHROSCOPY W/ MENISCECTOMY Bilateral ROSA FUNDOPLICATION OTHER SURGICAL HISTORY N/A 02/11/2023 Evaluation of sleep-disordered breathing exam - Dr. Bourne, [facility] SHOULDER ARTHROSCOPY Left TEARS SURGICAL IMPLANT (HISTORICAL) 10/07/2023 INSPIRE - hypoglossal nerve neurostimulator and generator and breathing snesor implant - DR BOURNE TONSILLECTOMY AND ADENOIDECTOMY (HISTORICAL) UPPER GASTROINTESTINAL ENDOSCOPY No family history on file. Objective Vitals: BP 113/77 (BP Location: Right arm, Patient Position: Sitting, BP Cuff Size: Adult) Pulse 79 Ht 5' 5.5 (1.664 m) Wt 207 lb 6.4 oz (94.1 kg) BMI 33.99 kg/m General Appearance: Patient is in no apparent distress. Head is normocephalic, atraumatic Cardiovascular: Regular rate and rhythm. No heart murmurs. No carotid bruit Neurologic: Mentation: Alert and oriented x 3 to person, place and time. Speech and Language: Speech and language normal Concentration and Attention: Concentration normal Memory: Memory normal Fund of Knowledge: Fund of knowledge normal Cranial Nerves: II, III, IV, V, , VII, VIII, IX, X, XI, XII examined and were intact. Motor: Strength: Strength 5 out of 5 with normal tone Alternating Movements: Normal Cogwheel Rigidity: None Tone: Tone is normal Tremor / Involuntary Movements: None Deep Tendon Reflexes: 1 out of 4 symmetrical in all four limbs. Sensory: Normal sensation upper and lower extremities Coordination: Normal coordination upper and lower extremities Gait and Station: Station is normal. Gait is normal Data Reviewed and Summarized DIAGNOSTIC TESTING CBC: No results found for: WBC, RBC, HGB, HCT, MCV, MCH, MCHC, RDW, PLT, MPV CMP: No results found for: NA, K, CL, CO2, BUN, CREATININE, AGRATIO, LABGLOM, GLUCOSE, GLU, PROT, CALCIUM, BILITOT, ALKPHOS, AST, ALT BMP: No results found for: NA, K, CL, CO2, BUN, CREATININE, CALCIUM, LABGLOM, GLUCOSE, GLU PT/INR: No results found for: PROTIME, INR PTT: No results found for: APTT, PTT[APTT} FLP: No results found for: CHLPL, TRIG, HDL, LDLCALC, LDLDIRECT TSH: No results found for: TSH VITAMIN B12: No results found for: [id number] No results found for: PHENYTOIN, PHENOBARB, VALPROATE, CBMZ No components found for: TOPIRA @RESULTINGLABINFO@ No results found for: LEVETIRACETA, FERRITIN, CRP, AISHAWRYA, ANCA No results found for: SINAN, IMMUNOGLOBUL, OLIGOBANDS No results found for: AAQ02EK, HEPCAB No results found for: CRP, ANATITER, ANCA FERRITIN: No results found for: FERRITIN ---- ECG 12 lead Sinus rhythm Borderline prolonged ME interval Electronically Signed On 10-01-2023 19:15:46 EST by Cat Bustamanteclaude @[email or web address]@ IMPRESSION and PLAN: Problem List Items Addressed This Visit None Visit Diagnoses Obstructive sleep apnea - Primary He is needing Cardiac work up Adjustments made to Inspire Device No problem-specific Assessment & Plan notes found for this encounter. CAROLYNE Matson CNP I spent 30 minutes caring for this patient today, reviewing labs, records, seeing the patient, documenting in the record and arranging for studies. Electronically signed by @LINDAR@ on @TDNR@ at @NOWNR@ documented in this [facility]08-16-2024 Note ORIGINAL NM MYOCARDIAL SPECT STRESS/REST CLINICAL STATEMENT: Exertional dyspnea, coronary calcium score > 700, HLD, HTN, TARIK TECHNIQUE: Lexiscan dose:0.4 mg Radiopharmaceutical (stress): Tc-99m Sestamibi Dose:30.6 mCi Radiopharmaceutical (rest): Tc-99m Sestamibi Dose:10.2 mCi SPECT acquisition and processing Reconstruction and reorientation of SPECT images into short axis, vertical and horizontal long axisplanes Quantitative LVEF assessment COMPARISON:none REPORT: Post stress myocardial perfusion images showed mild perfusion defect at mid- basal anterior/anteroseptal adamson and moderate defect at basal-mid inferior adamson and apical inferior/inferolateral adamson Resting images showed improved perfusion at anterior wall but similar perfusion inferior wall LVEF 56% with normal wall motion and thickening TID 1.02 IMPRESSION: Suggestive mild ischemia at anterior/anteroseptal adamson, but no infarct imaging part of stress test, limited specificity due to artifacts motion artifact and diaphragmatic attenuation artifact, soft tissue artifact was noted LVEF 56% with normal wall motion Interpreted By: Alise Mccollum Preliminary Report By: Alise Mccollum Electronically Signed By: Alise Mccollum Dictated Date: 03/31/2024 1:12:05 PM Prelim Date: 03/31/2024 1:12:05 PM Sign Date: 03/31/2024 1:20:36 PM Ordering Provider:[facility]05-07-2024 History of Present illness Narrative* Yessenia Ayala APRN - CHIP APPLYING 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 Obstructive sleep apnea Subjective HPI: Hx of TARIK. Followed with Dr. Elias. Unable to tolerate masks Inspire Device inserted 10/07/[address] Steffen Layne tried for sleep- Trazodone, Mirtazapine, Amitriptyline, Lunesta, Seroquel, Ativan Device activated 11/30/23 He reports that he has not used Inspire for the past few nights because it is waking him up He is not always able to fall asleep before device turns on He says if he doses Mirtazapine at 6pm it may start working at 4am He reports that speech issues have almost completely resolved REVIEW OF SYSTEMS: Review of Systems Constitutional: Negative. HENT: Negative. Eyes: Negative. Respiratory: Negative. Cardiovascular: Negative. Gastrointestinal: Negative. Endocrine: Negative. Genitourinary: Negative. Musculoskeletal: Negative. Skin: Negative. Allergic/Immunologic: Negative. Neurological: Negative. Hematological: Negative. Psychiatric/Behavioral: Positive for sleep disturbance. Allergies Allergen Reactions Pollen Extract Other Seasonal allergies. Outpatient Medications Prior to Visit Medication Sig Dispense Refill ALPHA LIPOIC ACID PO Take by mouth every morning (before breakfast). Ascorbic Acid (vitamin C) 1000 MG tablet Take 1,000 mg by mouth every morning (before breakfast). B Zkfcsas-Fzlzyg-WA (B COMPLEX 100 TR PO) Take by mouth every morning (before breakfast). cetirizine (ZyrTEC) 10 MG tablet Take by mouth every morning (before breakfast). cholecalciferol (Vitamin D-3) 125 MCG (5000 UT) capsule Take 5,000 Units by mouth daily. cloNIDine (Catapres) 0.1 MG tablet Take 0.1 mg by mouth Daily as needed. guaiFENesin (Mucinex) 600 MG 12 hr tablet Take 1,200 mg by mouth every morning (before breakfast). Do not crush, chew, or split. Magnesium Ascorbate powder every morning (before breakfast). metoprolol succinate XL (Toprol-XL) 50 MG 24 hr tablet 50 mg Nightly. mirtazapine (Remeron) 30 MG tablet Take 1 tablet (30 mg) by mouth Nightly. 30 tablet 2 Probiotic Product (PROBIOTIC BLEND PO) Take by mouth every morning (before breakfast). psyllium (Metamucil) 0.36 g capsule daily. QUERCETIN PO Take 400 mg by mouth every morning (before breakfast). Vitamin E 100 units tablet Take by mouth every morning (before breakfast). zinc gluconate 50 MG tablet Take 100 mg by mouth daily. gabapentin (Neurontin) 400 MG capsule Take 1-2 caps po one hour prior to bedtime (Patient not taking: Reported on 12/21/2023) 60 capsule 11 No facility-administered medications prior to visit. Past Medical History: Diagnosis Date Anxiety not any more Arthritis Asthma Brain concussion numerous; skull fracture w/subdural hematoma 1976 Cluster headache occasionally, not frequent Colon polyp CTS (carpal tunnel syndrome) 20 years--surgery 03/06 Depression in the past Head injury 1966 Hyperlipidemia Hypertension Insomnia adulthood Irritable bowel syndrome Numbness left thigh, right foot/toe Restless leg syndrome years Sleep apnea 20-30 years DO NOT WEAR CPAP Syncope only when I cough Social History Tobacco Use Smoking status: Never Smokeless tobacco: Never Substance Use Topics Alcohol use: Yes Alcohol/week: 1.0 - 2.0 standard drink of alcohol Types: 1 - 2 Cans of beer per week Comment: Very occasional; go weeks and sometimes months without Past Surgical History: Procedure Laterality Date BICEPS TENDON REPAIR Left CARPAL TUNNEL RELEASE Right COLONOSCOPY ELBOW SURGERY HERNIA REPAIR Bilateral inguinal KNEE ARTHROSCOPY W/ MENISCECTOMY Bilateral ROSA FUNDOPLICATION OTHER SURGICAL HISTORY N/A 02/11/2023 Evaluation of sleep-disordered breathing exam - Dr. Bourne, [facility] SHOULDER ARTHROSCOPY Left TEARS SURGICAL IMPLANT (HISTORICAL) 10/07/2023 INSPIRE - hypoglossal nerve neurostimulator and generator and breathing snesor implant - DR BOURNE TONSILLECTOMY AND ADENOIDECTOMY (HISTORICAL) UPPER GASTROINTESTINAL ENDOSCOPY No family history on file. Objective Vitals: BP 125/84 (BP Location: Left arm, Patient Position: Sitting, BP Cuff Size: Adult) Pulse 106 Ht 5' 5.5 (1.664 m) Wt 214 lb 9.6 oz (97.3 kg) BMI 35.17 kg/m General Appearance: Patient is in no apparent distress. Head is normocephalic, atraumatic Cardiovascular: Regular rate and rhythm. No heart murmurs. No carotid bruit Neurologic: Mentation: Alert and oriented x 3 to person, place and time. Speech and Language: Speech and language normal Concentration and Attention: Concentration normal Memory: Memory normal Fund of Knowledge: Fund of knowledge normal Cranial Nerves: II, III, IV, V, , VII, VIII, IX, X, XI, XII examined and were intact. Motor: Strength: Strength 5 out of 5 with normal tone Alternating Movements: Normal Cogwheel Rigidity: None Tone: Tone is normal Tremor / Involuntary Movements: None Deep Tendon Reflexes: 1 out of 4 symmetrical in all four limbs. Sensory: Normal sensation upper and lower extremities Coordination: Normal coordination upper and lower extremities Gait and Station: Station is normal. Gait is normal Data Reviewed and Summarized DIAGNOSTIC TESTING CBC: No results found for: WBC, RBC, HGB, HCT, MCV, MCH, MCHC, RDW, PLT, MPV CMP: No results found for: NA, K, CL, CO2, BUN, CREATININE, AGRATIO, LABGLOM, GLUCOSE, GLU, PROT, CALCIUM, BILITOT, ALKPHOS, AST, ALT BMP: No results found for: NA, K, CL, CO2, BUN, CREATININE, CALCIUM, LABGLOM, GLUCOSE, GLU PT/INR: No results found for: PROTIME, INR PTT: No results found for: APTT, PTT[APTT} FLP: No results found for: CHLPL, TRIG, HDL, LDLCALC, LDLDIRECT TSH: No results found for: TSH VITAMIN B12: No results found for: [id number] No results found for: PHENYTOIN, PHENOBARB, VALPROATE, CBMZ No components found for: TOPIRA @RESULTINGLABINFO@ No results found for: LEVETIRACETA, FERRITIN, CRP, AISHWARYA, ANCA No results found for: SINAN, IMMUNOGLOBUL, OLIGOBANDS No results found for: [id number], HEPCAB No results found for: CRP, ANATITER, ANCA FERRITIN: No results found for: FERRITIN ---- ECG 12 lead Sinus rhythm Borderline prolonged ME interval Electronically Signed On 10-01-2023 19:15:46 EST by Cat Bennett @[facility]THISPROV@ IMPRESSION and PLAN: Problem List Items Addressed This Visit None Visit Diagnoses Obstructive sleep apnea - Primary Adjustments made to Inspire Device No problem-specific Assessment & Plan notes found for this encounter. CAROLYNE Huizar CNP I spent 30 minutes caring for this patient today, reviewing labs, records, seeing the patient, documenting in the record and arranging for studies. Electronically signed by @ELMER@ on @TDNR@ at @NOWNR@ documented in this [facility]05-07-2024 History of Present illness Narrative* CAROLYNE Huizar CNP - 12/21/2023 10:30 AM EDT Visit type: Established Patient Reason for Visit: Follow-up (inspire) Assessment and Plan 1. Obstructive sleep apnea Subjective HPI: Hx of TARIK. Followed with Dr. Elias. Unable to tolerate masks Inspire Device inserted 10/07/[address] Steffen Layne tried for sleep- Trazodone, Mirtazapine, Amitriptyline, Lunesta, Seroquel, Ativan Device activated 11/30/23 He reports that he has not used Inspire for the past few nights because it is waking him up He is not always able to fall asleep before device turns on He says if he doses Mirtazapine at 6pm it may start working at 4am He reports that speech issues have almost completely resolved Incoming settings: Usage: 9hrs/wk, Amplitude: 2.4V, Range: 2.0V - 3.0V, Start Delay: 50min, Pause: 15min, Duration: 7hrs Outgoing settings: Amplitude: 2.0V, Range: 1.8V - 2.8V, Start Delay: 65min, Pause: 20min, Duration:7hrs REVIEW OF SYSTEMS: Review of Systems Constitutional: Negative. HENT: Negative. Eyes: Negative. Respiratory: Negative. Cardiovascular: Negative. Gastrointestinal: Negative. Endocrine: Negative. Genitourinary: Negative. Musculoskeletal: Negative. Skin: Negative. Allergic/Immunologic: Negative. Neurological: Negative. Hematological: Negative. Psychiatric/Behavioral: Positive for sleep disturbance. Allergies Allergen Reactions Pollen Extract Other Seasonal allergies. Outpatient Medications Prior to Visit Medication Sig Dispense Refill ALPHA LIPOIC ACID PO Take by mouth every morning (before breakfast). Ascorbic Acid (vitamin C) 1000 MG tablet Take 1,000 mg by mouth every morning (before breakfast). B Gglbzgg-Nriuvq-SY (B COMPLEX 100 TR PO) Take by mouth every morning (before breakfast). cetirizine (ZyrTEC) 10 MG tablet Take by mouth every morning (before breakfast). cholecalciferol (Vitamin D-3) 125 MCG (5000 UT) capsule Take 5,000 Units by mouth daily. cloNIDine (Catapres) 0.1 MG tablet Take 0.1 mg by mouth Daily as needed. guaiFENesin (Mucinex) 600 MG 12 hr tablet Take 1,200 mg by mouth every morning (before breakfast). Do not crush, chew, or split. Magnesium Ascorbate powder every morning (before breakfast). metoprolol succinate XL (Toprol-XL) 50 MG 24 hr tablet 50 mg Nightly. mirtazapine (Remeron) 30 MG tablet Take 1 tablet (30 mg) by mouth Nightly. 30 tablet 2 Probiotic Product (PROBIOTIC BLEND PO) Take by mouth every morning (before breakfast). psyllium (Metamucil) 0.36 g capsule daily. QUERCETIN PO Take 400 mg by mouth every morning (before breakfast). Vitamin E 100 units tablet Take by mouth every morning (before breakfast). zinc gluconate 50 MG tablet Take 100 mg by mouth daily. gabapentin (Neurontin) 400 MG capsule Take 1-2 caps po one hour prior to bedtime (Patient not taking: Reported on 12/21/2023) 60 capsule 11 No facility-administered medications prior to visit. Past Medical History: Diagnosis Date Anxiety not any more Arthritis Asthma Brain concussion numerous; skull fracture w/subdural hematoma 1976 Cluster headache occasionally, not frequent Colon polyp CTS (carpal tunnel syndrome) 20 years--surgery 03/06 Depression in the past Head injury 1967 Hyperlipidemia Hypertension Insomnia adulthood Irritable bowel syndrome Numbness left thigh, right foot/toe Restless leg syndrome years Sleep apnea 20-30 years DO NOT WEAR CPAP Syncope only when I cough Social History Tobacco Use Smoking status: Never Smokeless tobacco: Never Substance Use Topics Alcohol use: Yes Alcohol/week: 1.0 - 2.0 standard drink of alcohol Types: 1 - 2 Cans of beer per week Comment: Very occasional; go weeks and sometimes months without Past Surgical History: Procedure Laterality Date BICEPS TENDON REPAIR Left CARPAL TUNNEL RELEASE Right COLONOSCOPY ELBOW SURGERY HERNIA REPAIR Bilateral inguinal KNEE ARTHROSCOPY W/ MENISCECTOMY Bilateral ROSA FUNDOPLICATION OTHER SURGICAL HISTORY N/A 02/11/2023 Evaluation of sleep-disordered breathing exam - Dr. Bourne, [facility] SHOULDER ARTHROSCOPY Left TEARS SURGICAL IMPLANT (HISTORICAL) 10/07/2023 INSPIRE - hypoglossal nerve neurostimulator and generator and breathing snesor implant - DR BOURNE TONSILLECTOMY AND ADENOIDECTOMY (HISTORICAL) UPPER GASTROINTESTINAL ENDOSCOPY No family history on file. Objective Vitals: BP 125/84 (BP Location: Left arm, Patient Position: Sitting, BP Cuff Size: Adult) Pulse 106 Ht 5' 5.5 (1.664 m) Wt 214 lb 9.6 oz (97.3 kg) BMI 35.17 kg/m General Appearance: Patient is in no apparent distress. Head is normocephalic, atraumatic Cardiovascular: Regular rate and rhythm. No heart murmurs. No carotid bruit Neurologic: Mentation: Alert and oriented x 3 to person, place and time. Speech and Language: Speech and language normal Concentration and Attention: Concentration normal Memory: Memory normal Fund of Knowledge: Fund of knowledge normal Cranial Nerves: II, III, IV, V, , VII, VIII, IX, X, XI, XII examined and were intact. Motor: Strength: Strength 5 out of 5 with normal tone Alternating Movements: Normal Cogwheel Rigidity: None Tone: Tone is normal Tremor / Involuntary Movements: None Deep Tendon Reflexes: 1 out of 4 symmetrical in all four limbs. Sensory: Normal sensation upper and lower extremities Coordination: Normal coordination upper and lower extremities Gait and Station: Station is normal. Gait is normal Data Reviewed and Summarized DIAGNOSTIC TESTING CBC: No results found for: WBC, RBC, HGB, HCT, MCV, MCH, MCHC, RDW, PLT, MPV CMP: No results found for: NA, K, CL, CO2, BUN, CREATININE, AGRATIO, LABGLOM, GLUCOSE, GLU, PROT, CALCIUM, BILITOT, ALKPHOS, AST, ALT BMP: No results found for: NA, K, CL, CO2, BUN, CREATININE, CALCIUM, LABGLOM, GLUCOSE, GLU PT/INR: No results found for: PROTIME, INR PTT: No results found for: APTT, PTT[APTT} FLP: No results found for: CHLPL, TRIG, HDL, LDLCALC, LDLDIRECT TSH: No results found for: TSH VITAMIN B12: No results found for: [id number] No results found for: PHENYTOIN, PHENOBARB, VALPROATE, CBMZ No components found for: TOPIRA @RESULTINGLABINFO@ No results found for: LEVETIRACETA, FERRITIN, CRP, AISHWARYA, ANCA No results found for: SINAN, IMMUNOGLOBUL, OLIGOBANDS No results found for: [id number], HEPCAB No results found for: CRP, ANATITER, ANCA FERRITIN: No results found for: FERRITIN ---- ECG 12 lead Sinus rhythm Borderline prolonged ME interval Electronically Signed On 10-01-2023 19:15:46 EST by Cat Bennett @[email or web address]@ IMPRESSION and PLAN: Problem List Items Addressed This Visit None Visit Diagnoses Obstructive sleep apnea - Primary Adjustments made to Inspire Device No problem-specific Assessment & Plan notes found for this encounter. CAROLYNE Huizar CNP I spent 30 minutes caring for this patient today, reviewing labs, records, seeing the patient, documenting in the record and arranging for studies. Electronically signed by @ELMER@ on @TDNR@ at @NOWNR@ documented in this [facility]04-16-2024 History of Present illness Narrative* Lety Fierro MD - 11/30/2023 9:30 AM EDT Images from the original note were not included. [facility] [address] [facility] [facility] [address] [facility] [address] Dept: [phone] Dept Loc: [phone] Lety Fierro MD CHIEF COMPLAINT: Chief Complaint Patient presents with Follow-up inspire HISTORY OF PRESENT ILLNESS: The patient is a 68 y.o. person who returns for follow up of sleep apnea. He reports that after he had dysphagia and a lisp when he speaks. He reports that this is getting better. He was told by Dr. Bourne that they did have to manipulate the nerve a little longer than usual during implantation. No more blacking out spells. Past Medical History: has a past medical history of Anxiety (not any more), Arthritis, Asthma, Brain concussion (numerous; skull fracture w/subdural hematoma 1976), Cluster headache (occasionally, not frequent), Colon polyp, CTS (carpal tunnel syndrome) (20 years--surgery 03/06), Depression (in the past), Head injury (1966), Hyperlipidemia, Hypertension, Insomnia (adulthood), Irritable bowel syndrome, Numbness (left thigh, right foot/toe), Restless leg syndrome (years), Sleep apnea (20-30 years), and Syncope (only when I cough). He has no past medical history of Delayed emergence from general anesthesia, Malignant hyperthermia, Motion sickness, or PONV (postoperative nausea and vomiting). Past Surgical History: has a past surgical history that includes Hernia repair (Bilateral); Rosa fundoplication; Shoulder arthroscopy (Left); Biceps tendon repair (Left); Carpal tunnel release (Right); Knee arthroscopy w/ meniscectomy (Bilateral); Tonsillectomy and adenoidectomy; Colonoscopy; Other surgical history (N/A, 02/11/2023); Upper gastrointestinal endoscopy; Elbow surgery; and surgical implant (historical) (10/07/2023). Medications: Current Outpatient Medications: ALPHA LIPOIC ACID PO, Take by mouth every morning (before breakfast)., Disp: , Rfl: Ascorbic Acid (vitamin C) 1000 MG tablet, Take 1,000 mg by mouth every morning (before breakfast).,Disp: , Rfl: B Dvqdhej-Vtbaxk-YQ (B COMPLEX 100 TR PO), Take by mouth every morning (before breakfast)., Disp: ,Rfl: cetirizine (ZyrTEC) 10 MG tablet, Take by mouth every morning (before breakfast)., Disp: , Rfl: cholecalciferol (Vitamin D-3) 125 MCG (5000 UT) capsule, Take 5,000 Units by mouth daily., Disp: , Rfl: cloNIDine (Catapres) 0.1 MG tablet, Take 0.1 mg by mouth Daily as needed., Disp: , Rfl: guaiFENesin (Mucinex) 600 MG 12 hr tablet, Take 1,200 mg by mouth every morning (before breakfast).Do not crush, chew, or split., Disp: , Rfl: Magnesium Ascorbate powder, every morning (before breakfast)., Disp: , Rfl: metoprolol succinate XL (Toprol-XL) 50 MG 24 hr tablet, 50 mg Nightly., Disp: , Rfl: Probiotic Product (PROBIOTIC BLEND PO), Take by mouth every morning (before breakfast)., Disp: , Rfl: psyllium (Metamucil) 0.36 g capsule, daily., Disp: , Rfl: QUERCETIN PO, Take 400 mg by mouth every morning (before breakfast)., Disp: , Rfl: Vitamin E 100 units tablet, Take by mouth every morning (before breakfast)., Disp: , Rfl: zinc gluconate 50 MG tablet, Take 100 mg by mouth daily., Disp: , Rfl: gabapentin (Neurontin) 400 MG capsule, Take 1-2 caps po one hour prior to bedtime, Disp: 60 capsule, Rfl: 11 Allergies: Pollen extract Social History: Social History Socioeconomic History Marital status: Spouse name: Not on file Number of children: Not on file Years of education: Not on file Highest education level: Not on file Occupational History Not on file Tobacco Use Smoking status: Never Smokeless tobacco: Never Vaping Use Vaping Use: Never used Substance and Sexual Activity Alcohol use: Yes Alcohol/week: 1.0 - 2.0 standard drink of alcohol Types: 1 - 2 Cans of beer per week Comment: Very occasional; go weeks and sometimes months without Drug use: Never Sexual activity: Yes Partners: Female Comment: 41 years, soooo...not often Other Topics Concern Not on file Social History Narrative Not on file Social Determinants of Health Financial Resource Strain: Not on file Food Insecurity: Not on file Transportation Needs: No Transportation Needs (07/29/2023) PRAPARE - Transportation Lack of Transportation (Medical): No Lack of Transportation (Non-Medical): No Physical Activity: Not on file Stress: Not on file Social Connections: Not on file Intimate Partner Violence: Not At Risk (10/07/2023) Humiliation, Afraid, Rape, and Kick questionnaire Fear of Current or Ex-Partner: No Emotionally Abused: No Physically Abused: No Sexually Abused: No Housing Stability: Unknown (07/29/2023) Housing Stability Vital Sign Unable to Pay for Housing in the Last Year: No Number of Places Lived in the Last Year: Not on file Unstable Housing in the Last Year: No Family History: No family history on file. REVIEW OF SYSTEMS: Review of Systems Constitutional: Negative for appetite change, chills, diaphoresis, fever and unexpected weight change. HENT: Negative for dental problem and mouth sores. Eyes: Negative for discharge and itching. Respiratory: Negative for chest tightness. Cardiovascular: Positive for palpitations. Negative for chest pain and leg swelling. Gastrointestinal: Negative for rectal pain and vomiting. Endocrine: Negative for polydipsia, polyphagia and polyuria. Genitourinary: Negative for decreased urine volume, flank pain and genital sores. Musculoskeletal: Positive for back pain. Negative for arthralgias. Skin: Negative for color change. Allergic/Immunologic: Negative for food allergies and immunocompromised state. Neurological: Positive for syncope. Hematological: Negative for adenopathy. Does not bruise/bleed easily. Psychiatric/Behavioral: Negative for agitation, behavioral problems, decreased concentration, sleepdisturbance and suicidal ideas. PHYSICAL EXAM: Vitals: BP 137/78 (BP Location: Right arm, Patient Position: Sitting, BP Cuff Size: Large adult) Pulse 60 Ht 5' 5.5 (1.664 m) Wt 211 lb 9.6 oz (96 kg) BMI 34.68 kg/m General Appearance: Patient is in no apparent distress. Head is normocephalic, atraumatic. Lungs CTA Cardiovascular: Regular rate and rhythm. No heart murmurs. No carotid bruit Neurologic: Mentation: Alert and oriented x 3 to person, place and time. Speech and Language: Speech and language normal Concentration and Attention: Concentration normal Memory: Memory normal Fund of Knowledge: Fund of knowledge normal Cranial Nerves: II, III, IV, V, , VII, VIII, IX, X, XI, XII tested and were intact including fundoscopic exam (optic discs) and visual field to confrontation. Motor: Strength:Strength 5 out of 5 with normal tone Alternating Movements: Normal Cogwheel Rigidity: None Tone: Tone is normal Tremor / Involuntary Movements: None Deep Tendon Reflexes: 1 out of 4 symmetrical in all four limbs. Coordination: Normal coordination upper and lower extremities Gait and Station: Station is normal. Gait is normal Inspire Activation Sensation threshold: 1.3v Function threshold: 2.2v Tongue protrusion: bilateral tongue protrusion Amplitude set to 2.2v Patient range: 2.0-3.0v Pulse width: 90uS Rate: 33hz Electrode configuration (+-+) Start delay: 50 minutes Therapy duration: 7 hours Pause time: 15 minutes DATA He had a home sleep apnea test that showed an AHI of 24. He had O2 desats down to 79%. -[facility]- [address] [place], [address] Patient Name: TRACY CARDOSO : 1955 Sex: M Billing Number: [id number] Order ID: [id number] Patient Type: O Patient Location: [facility] Attending: REGIS PHILLIPS Consulting: Admitting: Admit Date: 12/08/2022 Discharge Date: Ordering: REGIS PHILLIPS A1C Final Result Collected: 12/08/2022 09:10 Received: 12/08/2022 09:10 Test Name Result Ab Ref Range Units Site Comment Hgb A1c 6.3 4.3-6.4 % o Trend Quick Trend HFP Final Result Collected: 12/08/2022 09:10 Received: 12/08/2022 09:10 Test Name Result Ab Ref Range Units Site Comment Total Protein 7.0 6.4-8.2 G/dL o Trend Quick Trend Albumin Level 4.0 3.4-4.8 G/dL o Trend Quick Trend Globulin 3.0 G/dL o Trend Quick Trend A/G Ratio 1.3 1.1-2.5 ratio o Trend Quick Trend Bili Total 0.6 0.2-1.0 mg/dL o Use of this assay is not recommended for patients undergoing treatment with eltrombopag due to the potential for falsely elevated results. Trend Quick Trend Bili Direct 0.1 0.0-0.2 mg/dL o Use of this assay is not recommended for patients undergoing treatment with eltrombopag due to the potential for falsely elevated results. Trend Quick Trend Bili Indirect 0.5 mg/dL o Trend Quick Trend Alk Phos 43 40-135 U/L o Trend Quick Trend AST/SGOT 33 10-40 U/L o Trend Quick Trend ALT/SGPT 41 16-63 U/L o Trend Quick Trend TSH Final Result Collected: 12/08/2022 09:10 Received: 12/08/2022 09:10 Test Name Result Ab Ref Range Units Site Comment TSH 1.75 0.36-3.74 mcIU/mL o Trend Quick Trend FT4 Final Result Collected: 12/08/2022 09:10 Received: 12/08/2022 09:10 Test Name Result Ab Ref Range Units Site Comment Free T4 0.74 L 0.76-1.46 ng/dL o Trend Quick Trend LIPID Final Result Collected: 12/08/2022 09:10 Received: 12/08/2022 09:10 Test Name Result Ab Ref Range Units Site Comment Cholesterol 154 0-200 mg/dL o Cholesterol Reference Interval: Less than 200 Desirable 200-239 Borderline high risk 240 and above High risk Trend Quick Trend Triglycerides 164 H 0-150 mg/dL o Triglyceride Reference Interval: Less than 150 Normal 150-199 Borderline high risk 200-499 High risk 500 or higher Very high risk Trend Quick Trend HDL Cholesterol 41 40-60 mg/dL o Trend Quick Trend LDL Cholesterol 80 0-130 mg/dL o Trend Quick Trend CBC: No results found for: WBC, RBC, HGB, HCT, MCV, MCH, MCHC, RDW, PLT, MPV CMP: No results found for: NA, K, CL, CO2, BUN, CREATININE, AGRATIO, LABGLOM, GLUCOSE, GLU, PROT, CALCIUM, BILITOT, ALKPHOS, AST, ALT BMP: No results found for: NA, K, CL, CO2, BUN, CREATININE, CALCIUM, LABGLOM, GLUCOSE, GLU PT/INR: No results found for: PROTIME, INR PTT: No results found for: APTT, PTT[APTT} FLP: No results found for: CHLPL, TRIG, HDL, LDLCALC, LDLDIRECT TSH: No results found for: TSH VITAMIN B12: No results found for: [id number] FERRITIN: No results found for: FERRITIN ---- No results found for: PHENYTOIN, PHENOBARB, VALPROATE, CBMZ No components found for: TOPIRANo results found for: OXCARBAZE, OXCARB @[email or web address]@ ECG 12 lead Sinus rhythm Borderline prolonged ME interval Electronically Signed On 10-01-2023 19:15:46 EST by Cat Bennett @[email or web address]@ No results found for: LEVETIRACETA, FERRITIN, CRP, AISHWARYA, ANCA No results found for: SINAN, IMMUNOGLOBUL, OLIGOBANDS No results found for: [id number], HEPCAB No results found for: CRP, ANATITER, ANCA Patient Name: TRACY CARDOSO : 1955 [facility]#: [id number] Exam Date/Time: 04/07/2023 16:36 Procedure: MR BRAIN W AND WO CONTRAST Ordering Provider: FIERRO JAMES Reason For Exam: Dizziness, persistent/recurrent, cardiac or vascular cause suspected EXAMINATION: MR BRAIN W AND WO CONTRAST HISTORY: Dizziness, persistent/recurrent, cardiac or vascular cause suspected syncope and collapse. TECHNIQUE: Multiplanar, multisequence MRI of the brain was performed without and with intravenous gadolinium contrast. Contrast: 10mL Gadavist IV COMPARISON: None available RESULT: Acute Change: There is no evidence of an acute intracranial process. Hemorrhage: No evidence of prior parenchymal hemorrhage on the gradient echo images. Mass Lesion/ Mass Effect: No evidence of an intracranial mass or extra-axial fluid collection. No abnormal parenchymal or leptomeningeal enhancement is noted following contrast administration. No significant mass effect. Chronic Change: Scattered patchy areas of increased T2 and FLAIR signal are present in the supratentorial white matter which is a nonspecific finding but likely represents mild chronic microvascular ischemia. Parenchyma: No significant volume loss for age. Ventricles: Normal caliber and morphology. Skull Base: Hypothalamic and pituitary region are grossly normal. Craniocervical junction is normal. No significant marrow replacement process. Vasculature: Major intracranial arterial structures, and dural venous sinuses show typical flow void, suggesting patency by spin echo criteria. Other: Mild mucosal thickening of the left maxillary sinus. The remaining visualized paranasal sinuses and mastoid air cells are clear. The orbits and extracranial soft tissues are unremarkable. IMPRESSION: No acute intracranial process. No abnormal intracranial enhancement. Mild T2/FLAIR supratentorial white matter hyperintensities, nonspecific though likely sequelae of mild microvascular ischemic change. Report Dictated on Electronically Signed By: Marvin Mcghee MD Electronically Signed Date/Time: 04/10/2023 7:12 PM EDT EEG REPORT Patient Name: Tracy Cardoso : 1955 PROVIDER REQUESTING STUDY: Dr. Fierro REASON FOR EXAM: syncope, blacking out HISTORY: Tracy Cardoso is a 67 y.o. with history of syncope, blacking out MEDICATIONS: Current Outpatient Medications: ALPHA LIPOIC ACID PO, Take by mouth., Disp: , Rfl: cetirizine (ZyrTEC) 10 MG tablet, Take by mouth., Disp: , Rfl: gabapentin (Neurontin) 400 MG capsule, Take 1-2 caps po one hour prior to bedtime, Disp: 60 capsule, Rfl: 11 metoprolol succinate XL (Toprol-XL) 50 MG 24 hr tablet, 50 mg., Disp: , Rfl: Probiotic Product (PROBIOTIC BLEND PO), Take by mouth., Disp: , Rfl: psyllium (Metamucil) 0.36 g capsule, Oral, 0 Refill(s), Disp: , Rfl: QUEtiapine (SEROquel) 25 MG tablet, TAKE ONE TABLET BY MOUTH EVERY DAY (If working well, call for refills), Disp: , Rfl: simvastatin (Zocor) 40 MG tablet, Take 40 mg by mouth Nightly., Disp: , Rfl: TECHNICAL ASPECTS: This routine scalp EEG study with video was carried out. Scalp electrodes were positioned in personby an industrial engineering technologist, following patient education, according to the 10-20 International system ofelectrode placement and maintained for integrity and quality of the recording. EEG data with video was recorded continuously and digitally stored. The industrial engineering technologist reviewed all automated detections and manual events and prepared the data for archiving and provider review. Referential and bipolar montages were used for review. The recording lasted for over 62 minutes. TECHNOLOGIST NOTES: There was no history of skull defect. BACKGROUND ACTIVITY: Posterior background activity: A continuous organized and well-modulated 9 Hz rhythm was seen symmetrically over the posterior head regions bilaterally. Beta range: Fronto-centrally predominant beta range activity (15-25 Hz, 10-20 uV) was seen. Sleep: N2 sleep was reached as evidenced by the appearance of vertex waves and sleep spindles seen symmetrically over the central head regions bilaterally. Normal Variants: No normal variants were identified. SLOWING: No abnormal slowing was seen. INTERICTAL EPILEPTIFORM ACTIVITY: No epileptiform activity was seen. ICTAL ACTIVITY: No ictal activity was seen. NON-EPILEPTIC EVENTS: None. IMPRESSION: This is a normal awake and asleep EEG. His home sleep apnea test from November showed an AHI of 24. Holter monitor: The patient wore a Holter monitor for 24 hours and the quality of recording was good. The rhythm was sinus averaging 78 bpm with a minimum of 46 and a maximum of 124. There were 13 ventricular ectopic beats. There were 27 supraventricular ectopic beats. No symptoms were noted. Nocturnal bradycardia was seen with several episodes of type I second-degree AV block occurring during presumed sleeping hours. Summary: Holter monitor demonstrates sinus rhythm at normal rates with presumptively asymptomatic type I second-degree AV block occurring in the middle of the night. Transthoracic echocardiogram (TTE) complete with contrast, bubble, strain, and 3D PRN Interpretation Summary Left Ventricle: Left ventricle size is normal. Normal wall thickness. Normal left ventricular systolic function. EF by 2D Simpsons Biplane is 58%. Normal wall motion. Right Ventricle: Right ventricle size is normal. Normal systolic function. No significant valvular abnormalities. ASSESSMENT AND PLAN: Diagnosis Plan 1. Obstructive sleep apnea 2. Insomnia, unspecified type The inspire device was assessed and the settings, 9 of them were set. He received education on the device and its remote control. Mirtazapine 30 mg po 90-60 minutes prior to bedtime. I spent 30 minutes caring for this patient today, reviewing labs and records, seeing the patient, documenting in the record and arranging for studies. documented in this [facility]02-22-2024 Note* Perioperative Nursing Note - Nikki Finnegan RN - 10/07/2023 3:44 PM EST Pt and family verbalized understanding of recovery instructions, pt verbalized a readiness to be discharged home. Pt discharged home via wheelchair accompanied by RN/volunteer. Pt has had all their belongings returned to them at discharge [facility]02-22-2024 Note* Perioperative Nursing Note - Nikki Finnegan RN - 10/07/2023 3:44 PM EST Pt and family verbalized understanding of recovery instructions, pt verbalized a readiness to be discharged home. Pt discharged home via wheelchair accompanied by RN/volunteer. Pt has had all their belongings returned to them at [id number] Miscellaneous Notes* Perioperative Nursing Note - Nikki Finnegan RN - 10/07/2023 3:44 PM EST Pt and family verbalized understanding of recovery instructions, pt verbalized a readiness to be discharged home. Pt discharged home via wheelchair accompanied by RN/volunteer. Pt has had all their belongings returned to them at discharge * Perioperative Nursing Note - Nikki Finnegan RN - 10/07/2023 2:35 PM EST Pt received from OR via cart, spont. Resp. With PLUSH FINISHER in attendance. Placed on monitor. Monitor alarms on in PACU * Op Note - Castillo Bourne DO - 10/07/2023 11:04 AM EST OPERATIVE NOTE Patient Name: Tracy Cardoso DATE OF PROCEDURE: 10/07/2023 SURGEON: Castillo Bourne DO PREOPERATIVE DIAGNOSES: Pre-op Diagnosis * Obstructive sleep apnea (adult) (pediatric) [G47.33] * BMI 34.09 POSTOPERATIVE DIAGNOSES: same PROCEDURE: Procedure(s): INSERTION OF HYPOGLOSSAL NERVE NEUROSTIMULATOR ELECTRODE AND GENERATOR AND BREATHING SENSOR ELECTRODE ANESTHESIA: General COMPLICATIONS: NONE ESTIMATED BLOOD LOSS: Minimal GROSS FINDINGS: This patient presents with a history of moderate to severe obstructive sleep apnea.The patient presents with an appropriate BMI and AHI necessary to satisfy criteria for Inspire placement. The patient has been intolerant and unable to achieve benefit from positive airway pressure therapy. The patient has passed clinical, polysomnographic, and endoscopic screening criteria now presents for Inspire implantation. DESCRIPTION OF PROCEDURE: The patient was brought to the operative room and was anesthetized via general endotracheal anesthesia. Prior to prepping and draping, electrodes were placed into the genioglossus and hyoglossus muscles and connected to the NIM box for intraoperative nerve monitoring. A shoulder roll was placed and the patient was prepped and draped in the usual sterile fashion with the head rotated laterally to the left. A modified submandibular incision was made in the right upper neck approximately 2 cm below the mandible. Dissection was carried down through the subcutaneous tissue and platysma. The anterior/inferior border of the submandibular gland was identified as well as the digastric tendon. The submandibular gland and the overlying fascia with the marginal mandibular nerve were retracted posteriorly. Thedigastric tendon was retracted inferiorly. Dissection continued down into the digastric triangle and the posterior border of the mylohyoid muscle was freed up and retracted anteriorly. With balanced retraction, the hypoglossal nerve was identified in its usual fashion and was dissected up towards the floor of the mouth. The superior/posterior branches innervating the hyoglossus muscle were identified using the NIM stimulator and anatomic cues. The cuff electrode for the hypoglossal nerve stimulator was placed distally to these branches innervating the genioglossus, transverse, and vertical muscles. The stimulation lead was anchored to the digastric tendon using two 3-0 silk sutures and the l ead body slack between the cuff and the anchor gently tucked deep to the submandibular gland. A second 5 cm incision was made in the right upper chest over the second intercostal space, approximately 3 cm lateral to the sternal margin. Dissection was carried down through the skin and subcutaneous tissues to the fascia of the pectoralis muscle. An inferior pocket for the generator was created deep to the subcutaneous layer and superficial to the fascia of the pectoralis muscle. The pectoralis major fascia was dissected directly over the second intercostal space with subsequent blunt dissection through the muscle. The pectoralis major/minor was then retracted to expose the fatty layer just superficial to the external intercostals. The fatty layer was carefully swept away to expose theexternal intercostal muscles. A throw-down base knot was placed to the fascia of the external intercostals just lateral to the anterior external membrane using 3-0 silk suture. A fasciotomy through the external intercostals was performed approximately 5 mm lateral to the suture knot in the respiratory sense lead was advanced with the sensor facing the pleura into the interfascial plane between the external and internal intercostals. The primary anchor was sutured into place with 3-0 silk on theexternal intercostals. The secondary anchor was sutured with 3-0 silk to the pectoralis major allowing adequate slack between the anchors. The stimulation lead was then tunneled in a subplatysmal plane with blunt dissection under direct visualization and brought out into the subclavicular pocket where both the stimulation lead and the respiratory sensing lead were connected to the implantable pulse generator, using the two-person, three-handed approach. The implantable pulse generator was placed in the subclavicular pocket ensuring the lead body was deep to the generator and secured with use of air knots to the pectoralis fashion using 2-0 silk sutures. Diagnostic evaluation confirmed good placement of the stimulation cuff as demonstrated by activation of the genioglossus and transverse and vertical muscles, resulting in unhindered, stiffened tongue protrusion, confirmed visually. Diagnostic evaluation also confirmed good respiratory sensor placement as demonstrated by a sensing waveform with good rise and fall associated with patient respirations. Each wound was thoroughly irrigated and closed in 3 layers with deep Polysorb sutures and subcuticular 5-0 Monocryl suture on the skin. Steri-Strips were applied followed by placement of pressure dressings. The patient was then transferred to the recovery room in satisfactory and stable condition. documented in this [facility]02-22-2024 Note* Perioperative Nursing Note - Nikki Finnegan RN - 10/07/2023 2:35 PM EST Pt received from OR via cart, spont. Resp. With PLUSH FINISHER in attendance. Placed on monitor. Monitor alarms on in PACU [id number]* Perioperative Nursing Note - Nikki Finnegan RN - 10/07/2023 2:35 PM EST Pt received from OR via cart, spont. Resp. With PLUSH FINISHER in attendance. Placed on monitor. Monitor alarms on in PACU [id number] Hospital Discharge instructions* Discharge Instructions* Castillo Bourne DO - 10/07/2023 11:07 AM EST [facility] Instructions Dr. Castillo Bourne 1. Keep the area clean and dry. 2. Avoid any heavy lifting, straining, or exertion. This will prevent bleeding. 3. A cold compress may be applied to the area to minimize swelling and bruising. 4. Maintain the steri-strip dressing. 5. If the steri-strips fall off prematurely, then you should begin routine wound care until your first follow-up appointment: A. Clean the area twice daily using warm soap water and then gently pat dry. Do not use peroxide for cleaning. B. Liberally apply Bacitracin Ointment directly to the area to protect it from drying and crusting. C. You do not need to keep a dressing or bandage over the area unless there is potential for dirt or debris contacting it. D. You may shower or bathe directly over the area. 6. Resume all routine home medications unless instructed otherwise. If you have any further questions or concerns regarding comfort or care, please contact our office at any time. 1. If the surgical area develops any pain, redness, bleeding, or drainage 2. If you have any problems, questions, or concerns. OFFICE: [phone] IF YOU HAVE AN EMERGENCY, AND ARE UNABLE TO REACH THE DOCTOR AT THE ABOVE NUMBER, CALL OR GO TO [facility] EMERGENCY ROOM: [phone] Electronically signed by @[facility]@ on @TDNR@ at @NOWNR@ * Attachments The following attachments cannot be sent through Care Everywhere. * General Anesthesia Discharge Instructions (Romanian) documented in this [facility]02-22-2024 Note* Op Note - Castillo Bourne DO - 10/07/2023 11:04 AM EST OPERATIVE NOTE Patient Name: Tracy Cardoso DATE OF PROCEDURE: 10/07/2023 SURGEON: Castillo Bourne DO PREOPERATIVE DIAGNOSES: Pre-op Diagnosis * Obstructive sleep apnea (adult) (pediatric) [G47.33] * BMI 34.09 POSTOPERATIVE DIAGNOSES: same PROCEDURE: Procedure(s): INSERTION OF HYPOGLOSSAL NERVE NEUROSTIMULATOR ELECTRODE AND GENERATOR AND BREATHING SENSOR ELECTRODE ANESTHESIA: General COMPLICATIONS: NONE ESTIMATED BLOOD LOSS: Minimal GROSS FINDINGS: This patient presents with a history of moderate to severe obstructive sleep apnea.The patient presents with an appropriate BMI and AHI necessary to satisfy criteria for Inspire placement. The patient has been intolerant and unable to achieve benefit from positive airway pressure therapy. The patient has passed clinical, polysomnographic, and endoscopic screening criteria now presents for Inspire implantation. DESCRIPTION OF PROCEDURE: The patient was brought to the operative room and was anesthetized via general endotracheal anesthesia. Prior to prepping and draping, electrodes were placed into the genioglossus and hyoglossus muscles and connected to the NIM box for intraoperative nerve monitoring. A shoulder roll was placed and the patient was prepped and draped in the usual sterile fashion with the head rotated laterally to the left. A modified submandibular incision was made in the right upper neck approximately 2 cm below the mandible. Dissection was carried down through the subcutaneous tissue and platysma. The anterior/inferior border of the submandibular gland was identified as well as the digastric tendon. The submandibular gland and the overlying fascia with the marginal mandibular nerve were retracted posteriorly. Thedigastric tendon was retracted inferiorly. Dissection continued down into the digastric triangle and the posterior border of the mylohyoid muscle was freed up and retracted anteriorly. With balanced retraction, the hypoglossal nerve was identified in its usual fashion and was dissected up towards the floor of the mouth. The superior/posterior branches innervating the hyoglossus muscle were identified using the NIM stimulator and anatomic cues. The cuff electrode for the hypoglossal nerve stimulator was placed distally to these branches innervating the genioglossus, transverse, and vertical muscles. The stimulation lead was anchored to the digastric tendon using two 3-0 silk sutures and the l ead body slack between the cuff and the anchor gently tucked deep to the submandibular gland. A second 5 cm incision was made in the right upper chest over the second intercostal space, approximately 3 cm lateral to the sternal margin. Dissection was carried down through the skin and subcutaneous tissues to the fascia of the pectoralis muscle. An inferior pocket for the generator was created deep to the subcutaneous layer and superficial to the fascia of the pectoralis muscle. The pectoralis major fascia was dissected directly over the second intercostal space with subsequent blunt dissection through the muscle. The pectoralis major/minor was then retracted to expose the fatty layer just superficial to the external intercostals. The fatty layer was carefully swept away to expose theexternal intercostal muscles. A throw-down base knot was placed to the fascia of the external intercostals just lateral to the anterior external membrane using 3-0 silk suture. A fasciotomy through the external intercostals was performed approximately 5 mm lateral to the suture knot in the respiratory sense lead was advanced with the sensor facing the pleura into the interfascial plane between the external and internal intercostals. The primary anchor was sutured into place with 3-0 silk on theexternal intercostals. The secondary anchor was sutured with 3-0 silk to the pectoralis major allowing adequate slack between the anchors. The stimulation lead was then tunneled in a subplatysmal plane with blunt dissection under direct visualization and brought out into the subclavicular pocket where both the stimulation lead and the respiratory sensing lead were connected to the implantable pulse generator, using the two-person, three-handed approach. The implantable pulse generator was placed in the subclavicular pocket ensuring the lead body was deep to the generator and secured with use of air knots to the pectoralis fashion using 2-0 silk sutures. Diagnostic evaluation confirmed good placement of the stimulation cuff as demonstrated by activation of the genioglossus and transverse and vertical muscles, resulting in unhindered, stiffened tongue protrusion, confirmed visually. Diagnostic evaluation also confirmed good respiratory sensor placement as demonstrated by a sensing waveform with good rise and fall associated with patient respirations. Each wound was thoroughly irrigated and closed in 3 layers with deep Polysorb sutures and subcuticular 5-0 Monocryl suture on the skin. Steri-Strips were applied followed by placement of pressure dressings. The patient was then transferred to the recovery room in satisfactory and stable condition. [facility]02-22-2024 Note* Op Note - Castillo Bourne DO - 10/07/2023 11:04 AM EST OPERATIVE NOTE Patient Name: Tracy Cardoso DATE OF PROCEDURE: 10/07/2023 SURGEON: Castillo Bourne DO PREOPERATIVE DIAGNOSES: Pre-op Diagnosis * Obstructive sleep apnea (adult) (pediatric) [G47.33] * BMI 34.09 POSTOPERATIVE DIAGNOSES: same PROCEDURE: Procedure(s): INSERTION OF HYPOGLOSSAL NERVE NEUROSTIMULATOR ELECTRODE AND GENERATOR AND BREATHING SENSOR ELECTRODE ANESTHESIA: General COMPLICATIONS: NONE ESTIMATED BLOOD LOSS: Minimal GROSS FINDINGS: This patient presents with a history of moderate to severe obstructive sleep apnea.The patient presents with an appropriate BMI and AHI necessary to satisfy criteria for Inspire placement. The patient has been intolerant and unable to achieve benefit from positive airway pressure therapy. The patient has passed clinical, polysomnographic, and endoscopic screening criteria now presents for Inspire implantation. DESCRIPTION OF PROCEDURE: The patient was brought to the operative room and was anesthetized via general endotracheal anesthesia. Prior to prepping and draping, electrodes were placed into the genioglossus and hyoglossus muscles and connected to the NIM box for intraoperative nerve monitoring. A shoulder roll was placed and the patient was prepped and draped in the usual sterile fashion with the head rotated laterally to the left. A modified submandibular incision was made in the right upper neck approximately 2 cm below the mandible. Dissection was carried down through the subcutaneous tissue and platysma. The anterior/inferior border of the submandibular gland was identified as well as the digastric tendon. The submandibular gland and the overlying fascia with the marginal mandibular nerve were retracted posteriorly. Thedigastric tendon was retracted inferiorly. Dissection continued down into the digastric triangle and the posterior border of the mylohyoid muscle was freed up and retracted anteriorly. With balanced retraction, the hypoglossal nerve was identified in its usual fashion and was dissected up towards the floor of the mouth. The superior/posterior branches innervating the hyoglossus muscle were identified using the NIM stimulator and anatomic cues. The cuff electrode for the hypoglossal nerve stimulator was placed distally to these branches innervating the genioglossus, transverse, and vertical muscles. The stimulation lead was anchored to the digastric tendon using two 3-0 silk sutures and the l ead body slack between the cuff and the anchor gently tucked deep to the submandibular gland. A second 5 cm incision was made in the right upper chest over the second intercostal space, approximately 3 cm lateral to the sternal margin. Dissection was carried down through the skin and subcutaneous tissues to the fascia of the pectoralis muscle. An inferior pocket for the generator was created deep to the subcutaneous layer and superficial to the fascia of the pectoralis muscle. The pectoralis major fascia was dissected directly over the second intercostal space with subsequent blunt dissection through the muscle. The pectoralis major/minor was then retracted to expose the fatty layer just superficial to the external intercostals. The fatty layer was carefully swept away to expose theexternal intercostal muscles. A throw-down base knot was placed to the fascia of the external intercostals just lateral to the anterior external membrane using 3-0 silk suture. A fasciotomy through the external intercostals was performed approximately 5 mm lateral to the suture knot in the respiratory sense lead was advanced with the sensor facing the pleura into the interfascial plane between the external and internal intercostals. The primary anchor was sutured into place with 3-0 silk on theexternal intercostals. The secondary anchor was sutured with 3-0 silk to the pectoralis major allowing adequate slack between the anchors. The stimulation lead was then tunneled in a subplatysmal plane with blunt dissection under direct visualization and brought out into the subclavicular pocket where both the stimulation lead and the respiratory sensing lead were connected to the implantable pulse generator, using the two-person, three-handed approach. The implantable pulse generator was placed in the subclavicular pocket ensuring the lead body was deep to the generator and secured with use of air knots to the pectoralis fashion using 2-0 silk sutures. Diagnostic evaluation confirmed good placement of the stimulation cuff as demonstrated by activation of the genioglossus and transverse and vertical muscles, resulting in unhindered, stiffened tongue protrusion, confirmed visually. Diagnostic evaluation also confirmed good respiratory sensor placement as demonstrated by a sensing waveform with good rise and fall associated with patient respirations. Each wound was thoroughly irrigated and closed in 3 layers with deep Polysorb sutures and subcuticular 5-0 Monocryl suture on the skin. Steri-Strips were applied followed by placement of pressure dressings. The patient was then transferred to the recovery room in satisfactory and stable condition. [id number] Attending History and physical note* Castillo Bourne DO - 10/07/2023 10:00 AM EST H&P reviewed. The patient was examined and there are no changes to the H&P. Source Note - SERVANDO Payne - 09/30/2023 11:30 AM EST Comprehensive PreSurgical History and Physical ? Name: Tracy Cardoso : 1955 (Age-68 y.o.) Date of Service: Pt seen/examined on 09/30/2023 Procedure Information Date/Time: 10/07/23 1130 Procedure: INSERTION OF HYPOGLOSSAL NERVE NEUROSTIMULATOR ELECTRODE AND GENERATOR AND BREATHING SENSOR ELECTRODE - total time 150 minutes Location: [address] Operating Room Surgeons: Castillo Bourne DO Chief Complaint: Tarik ASSESSMENT/PLAN: Patient is considered intermediate risk for this low/intermediate risk procedure/surgery noted above () with no reducible risk factors. Based on the above evaluation, the benefits of the planned procedure likely exceed the risks. The patient is medically optimized to proceed with the planned procedure without any further cardiopulmonary testing. 1) Obstructive sleep apnea Managed per surgery Not compliant with CPAP 2) HTN Currently taking metoprolol BP Readings from Last 3 Encounters: 09/30/23 139/77 07/29/23 (!) 142/80 06/04/23 (!) 144/82 3) HLD Currently not on meds 4) Anxiety / Depression Currently not on meds 5) RLS Insomnia Currently not on meds 6) Obesity BMI 36 7) Asthma Per patient, feels at baseline Not using rescue inhaler Visit Type: Pre-Admission Testing Visit Labs Ordered: NO - NOT INDICATED FOR THIS PROCEDURE Sleep Referral Ordered: NO - ALREADY DIAGNOSED WITH TARIK AND PATIENT IS NOT COMPLIANT WITH CPAP Total time spent (which include face to face and non face to face encounters) : 40 minutes Toxic drug monitoring/narrow therapeutic index drug monitoring : # Drug name : n/a # Route administered : n/a # Method of monitoring : n/a PAT Protocol referenced includes: 1. Anesthesia Lab Protocol Orders 2. Perioperative Cardiovascular Risk Assessment 3. Anesthesia Assessment 4. Pain Assessment and Acute Pain Service Consult (if appropriate) 5. Medical Clearance/Consult from Internal Medicine ([facility]) 6. Shower/Wash Order (for designated surgeries) 7. TARIK Screen and Sleep Clinic Referral (if appropriate) History Of Present Illness: 68 y.o. male who presents with chief complaint mentioned above. Per surgeon's note +TARIK. He reports that he was unable to wear his mask for years. Dr. Elias was not able to control the sleep apnea with PAP therapy because the patient was unable to tolerate the masks. C/o snoring. The patient reports excessive daytime sleepiness. The patient does not feel refreshed upon awakening. The patient estimations 3 arousals per sleep period. Urgency wakes him up. He has been on trazadone, mirtazapine, amitriptyline, Ambien, Lunesta, and now quetiapine. S/p evaluation of sleep-disordered breathing by examination of upper airway using an endoscope on 02/11/23. Pt has seen the surgeon and elected for above procedure. Denies Hx of DM, COPD, CAD, CHF, a fib, CA, TIA/CVA, DVT/PE Hx problems with anesthesia? - no +hard stick Dental? - missing 1 top tooth nothing loose or broken no partials or dentures Snore at night? -yes. +tarik not using cpap Past Medical History: Past Medical History: not any more: Anxiety No date: Arthritis No date: Asthma numerous; skull fracture w/subdural hematoma 1976: Brain concussion occasionally, not frequent: Cluster headache No date: Colon polyp 20 years--surgery 03/06: CTS (carpal tunnel syndrome) in the past: Depression 1966: Head injury No date: Hyperlipidemia No date: Hypertension adulthood: Insomnia No date: Irritable bowel syndrome left thigh, right foot/toe: Numbness years: Restless leg syndrome 20-30 years: Sleep apnea Comment: DO NOT WEAR CPAP only when I cough: Syncope Past Surgical History: Past Surgical History: No date: BICEPS TENDON REPAIR; Left No date: CARPAL TUNNEL RELEASE; Right No date: COLONOSCOPY No date: ELBOW SURGERY No date: HERNIA REPAIR; Bilateral Comment: inguinal No date: KNEE ARTHROSCOPY W/ MENISCECTOMY; Bilateral No date: ROSA FUNDOPLICATION 02/11/2023: OTHER SURGICAL HISTORY; N/A Comment: Evaluation of sleep-disordered breathing exam - Dr. Bourne, [facility] No date: SHOULDER ARTHROSCOPY; Left Comment: TEARS No date: TONSILLECTOMY AND ADENOIDECTOMY (HISTORICAL) No date: UPPER GASTROINTESTINAL ENDOSCOPY Medications Prior to Admission: Current Outpatient Medications: cloNIDine (Catapres) 0.1 MG tablet, Take 0.1 mg by mouth Daily as needed., Disp: , Rfl: ALPHA LIPOIC ACID PO, Take by mouth every morning (before breakfast)., Disp: , Rfl: Ascorbic Acid (vitamin C) 1000 MG tablet, Take 1,000 mg by mouth every morning (before breakfast).,Disp: , Rfl: B Lqnpnih-Vxdyab-XN (B COMPLEX 100 TR PO), Take by mouth every morning (before breakfast)., Disp: ,Rfl: cetirizine (ZyrTEC) 10 MG tablet, Take by mouth every morning (before breakfast)., Disp: , Rfl: cholecalciferol (Vitamin D-3) 125 MCG (5000 UT) capsule, Take 5,000 Units by mouth daily., Disp: , Rfl: gabapentin (Neurontin) 400 MG capsule, Take 1-2 caps po one hour prior to bedtime, Disp: 60 capsule, Rfl: 11 guaiFENesin (Mucinex) 600 MG 12 hr tablet, Take 1,200 mg by mouth every morning (before breakfast).Do not crush, chew, or split., Disp: , Rfl: Magnesium Ascorbate powder, every morning (before breakfast)., Disp: , Rfl: metoprolol succinate XL (Toprol-XL) 50 MG 24 hr tablet, 50 mg Nightly., Disp: , Rfl: Probiotic Product (PROBIOTIC BLEND PO), Take by mouth every morning (before breakfast)., Disp: , Rfl: psyllium (Metamucil) 0.36 g capsule, daily., Disp: , Rfl: QUERCETIN PO, Take 400 mg by mouth every morning (before breakfast)., Disp: , Rfl: Vitamin E 100 units tablet, Take by mouth every morning (before breakfast)., Disp: , Rfl: zinc gluconate 50 MG tablet, Take 100 mg by mouth daily., Disp: , Rfl: CHRONIC NARCOTIC USE: No Allergies: Pollen extract If patient has opioid allergy, is it okay to take Acetaminophen: N/A Social History: TOBACCO: reports that he has never smoked. He has never used smokeless tobacco. ETOH: reports current alcohol use of about 1.0 - 2.0 standard drink of alcohol per week. Social History Substance and Sexual Activity Drug Use Never Family History: No family history on file. REVIEW OF SYSTEMS: Review of Systems Constitutional: Negative for chills and fever. Respiratory: Negative for shortness of breath. Cardiovascular: Negative for chest pain. Pertinent positives as noted in the HPI. Physical Exam: Physical Exam Constitutional: General: He is awake. He is not in acute distress. Appearance: Normal appearance. HENT: Head: Normocephalic and atraumatic. Eyes: Extraocular Movements: Extraocular movements intact. Conjunctiva/sclera: Conjunctivae normal. Cardiovascular: Rate and Rhythm: Normal rate and regular rhythm. Heart sounds: Normal heart sounds. Pulmonary: Effort: Pulmonary effort is normal. Breath sounds: Normal breath sounds. Abdominal: Palpations: Abdomen is soft. Musculoskeletal: General: Normal range of motion. Cervical back: Normal range of motion. Skin: General: Skin is warm and dry. Neurological: General: No focal deficit present. Mental Status: He is alert and oriented to person, place, and time. Psychiatric: Mood and Affect: Mood normal. Behavior: Behavior normal. Behavior is cooperative. Vitals: Vitals Value Taken Time BP 139/77 09/30/23 1142 Temp 36.6 C (97.8 F) 09/30/23 1142 Pulse 67 09/30/23 1142 Resp 16 09/30/23 1142 SpO2 96 % 09/30/23 1142 BP 139/77 Pulse 67 Temp 36.6 C (97.8 F) (Temporal) Resp 16 Ht 1.664 m (5' 5.5) Wt 99.3 kg (219 lb) SpO2 96% BMI 35.89 kg/m Labs: No results found for: WBC, HGB, HCT, MCV, PLT No results found for: NA, K, CL, CO2, BUN, CREATININE, GLUCOSE, CALCIUM, PROT, BILIRUBINFL, ALKPHOS, AST, ALT, EGFR, GLOB Connor's Simple Cardiac Risk Index: CONNOR'S SIMPLE CARDIAC RISK SCORE: 0 Interpretation: 0 Points Class I 0.5% 1 Point Class II 1.3% 2 Points Class III 3.6% 3+ Points Class IV 9.1% METS >4 METS (Able to climb a flight of stairs with no chest pain or shortness of breath): Yes Walk indoors, such as around the house (1.75 METs), Do light work around the house, such as dusting or washing dishes (2.70 METs), Take care of self, that is eating, dressing, bathing, using the toilet (2.75 METs), Do moderate work around the house such as vacuuming, sweeping floors, or carrying in groceries (3.50 METs), Do yardwork, such as raking leaves, weeding,or pushing a power mower (4.50 METs), Climb a flight of stairs or walk up a hill (5.50 METs) PAT Pain Score: 0 Postop Pain Management Plan (Pain consult ordered?): Pain consult not indicated at this time ? EKG: Done today: Encounter Date: 09/30/23 ECG 12 lead Result Value Heart Rate 61 QRSD Interval 88 QT Interval 396 QTC Interval 398 P [place] 24 QRS [place] -10 T Wave [place] 49 ME Interval 213 Impression Sinus rhythm Borderline prolonged ME interval Compared to ECG 02/04/2023 11:36:01 No significant changes ECHO and EF: No components found for: LVEF, LVEFMODE 04/28/23 Interpretation Summary Left Ventricle: Left ventricle size is normal. Normal wall thickness. Normal left ventricular systolic function. EF by 2D Simpsons Biplane is 58%. Normal wall motion. Right Ventricle: Right ventricle size is normal. Normal systolic function. No significant valvular abnormalities. Cardiac holter monitor 04/28/23: Interpretation Summary The patient wore a Holter monitor for 24 hours and the quality of recording was good. The rhythm was sinus averaging 78 bpm with a minimum of 46 and a maximum of 124. There were 13 ventricular ectopic beats. There were 27 supraventricular ectopic beats. No symptoms were noted. Nocturnal bradycardia was seen with several episodes of type I second-degree AV block occurring during presumed sleeping hours. Summary: Holter monitor demonstrates sinus rhythm at normal rates with presumptively asymptomatic type I second-degree AV block occurring in the middle of the night. Electronically signed by: SERVANDO Payne Date: 09/30/2023 at 12:09 PM [facility] [id number] History and physical note* Castillo Bourne DO - 10/07/2023 10:00 AM EST H&P reviewed. The patient was examined and there are no changes to the H&P. Source Note - SERVANDO Payne - 09/30/2023 11:30 AM EST Comprehensive PreSurgical History and Physical ? Name: Tracy Cardoso : 1955 (Age-68 y.o.) Date of Service: Pt seen/examined on 09/30/2023 Procedure Information Date/Time: 10/07/23 1130 Procedure: INSERTION OF HYPOGLOSSAL NERVE NEUROSTIMULATOR ELECTRODE AND GENERATOR AND BREATHING SENSOR ELECTRODE - total time 150 minutes Location: [address] Operating Room Surgeons: Castillo Bourne DO Chief Complaint: Tarik ASSESSMENT/PLAN: Patient is considered intermediate risk for this low/intermediate risk procedure/surgery noted above () with no reducible risk factors. Based on the above evaluation, the benefits of the planned procedure likely exceed the risks. The patient is medically optimized to proceed with the planned procedure without any further cardiopulmonary testing. 1) Obstructive sleep apnea Managed per surgery Not compliant with CPAP 2) HTN Currently taking metoprolol BP Readings from Last 3 Encounters: 09/30/23 139/77 07/29/23 (!) 142/80 06/04/23 (!) 144/82 3) HLD Currently not on meds 4) Anxiety / Depression Currently not on meds 5) RLS Insomnia Currently not on meds 6) Obesity BMI 36 7) Asthma Per patient, feels at baseline Not using rescue inhaler Visit Type: Pre-Admission Testing Visit Labs Ordered: NO - NOT INDICATED FOR THIS PROCEDURE Sleep Referral Ordered: NO - ALREADY DIAGNOSED WITH TARIK AND PATIENT IS NOT COMPLIANT WITH CPAP Total time spent (which include face to face and non face to face encounters) : 40 minutes Toxic drug monitoring/narrow therapeutic index drug monitoring : # Drug name : n/a # Route administered : n/a # Method of monitoring : n/a PAT Protocol referenced includes: 1. Anesthesia Lab Protocol Orders 2. Perioperative Cardiovascular Risk Assessment 3. Anesthesia Assessment 4. Pain Assessment and Acute Pain Service Consult (if appropriate) 5. Medical Clearance/Consult from Internal Medicine ([facility]) 6. Shower/Wash Order (for designated surgeries) 7. TARIK Screen and Sleep Clinic Referral (if appropriate) History Of Present Illness: 68 y.o. male who presents with chief complaint mentioned above. Per surgeon's note +TARIK. He reports that he was unable to wear his mask for years. Dr. Elias was not able to control the sleep apnea with PAP therapy because the patient was unable to tolerate the masks. C/o snoring. The patient reports excessive daytime sleepiness. The patient does not feel refreshed upon awakening. The patient estimations 3 arousals per sleep period. Urgency wakes him up. He has been on trazadone, mirtazapine, amitriptyline, Ambien, Lunesta, and now quetiapine. S/p evaluation of sleep-disordered breathing by examination of upper airway using an endoscope on 02/11/23. Pt has seen the surgeon and elected for above procedure. Denies Hx of DM, COPD, CAD, CHF, a fib, CA, TIA/CVA, DVT/PE Hx problems with anesthesia? - no +hard stick Dental? - missing 1 top tooth nothing loose or broken no partials or dentures Snore at night? -yes. +tarik not using cpap Past Medical History: Past Medical History: not any more: Anxiety No date: Arthritis No date: Asthma numerous; skull fracture w/subdural hematoma 1976: Brain concussion occasionally, not frequent: Cluster headache No date: Colon polyp 20 years--surgery 03/06: CTS (carpal tunnel syndrome) in the past: Depression 1966: Head injury No date: Hyperlipidemia No date: Hypertension adulthood: Insomnia No date: Irritable bowel syndrome left thigh, right foot/toe: Numbness years: Restless leg syndrome 20-30 years: Sleep apnea Comment: DO NOT WEAR CPAP only when I cough: Syncope Past Surgical History: Past Surgical History: No date: BICEPS TENDON REPAIR; Left No date: CARPAL TUNNEL RELEASE; Right No date: COLONOSCOPY No date: ELBOW SURGERY No date: HERNIA REPAIR; Bilateral Comment: inguinal No date: KNEE ARTHROSCOPY W/ MENISCECTOMY; Bilateral No date: ROSA FUNDOPLICATION 02/11/2023: OTHER SURGICAL HISTORY; N/A Comment: Evaluation of sleep-disordered breathing exam - Dr. Bourne, [facility] No date: SHOULDER ARTHROSCOPY; Left Comment: TEARS No date: TONSILLECTOMY AND ADENOIDECTOMY (HISTORICAL) No date: UPPER GASTROINTESTINAL ENDOSCOPY Medications Prior to Admission: Current Outpatient Medications: cloNIDine (Catapres) 0.1 MG tablet, Take 0.1 mg by mouth Daily as needed., Disp: , Rfl: ALPHA LIPOIC ACID PO, Take by mouth every morning (before breakfast)., Disp: , Rfl: Ascorbic Acid (vitamin C) 1000 MG tablet, Take 1,000 mg by mouth every morning (before breakfast).,Disp: , Rfl: B Zitffwt-Intucq-IA (B COMPLEX 100 TR PO), Take by mouth every morning (before breakfast)., Disp: ,Rfl: cetirizine (ZyrTEC) 10 MG tablet, Take by mouth every morning (before breakfast)., Disp: , Rfl: cholecalciferol (Vitamin D-3) 125 MCG (5000 UT) capsule, Take 5,000 Units by mouth daily., Disp: , Rfl: gabapentin (Neurontin) 400 MG capsule, Take 1-2 caps po one hour prior to bedtime, Disp: 60 capsule, Rfl: 11 guaiFENesin (Mucinex) 600 MG 12 hr tablet, Take 1,200 mg by mouth every morning (before breakfast).Do not crush, chew, or split., Disp: , Rfl: Magnesium Ascorbate powder, every morning (before breakfast)., Disp: , Rfl: metoprolol succinate XL (Toprol-XL) 50 MG 24 hr tablet, 50 mg Nightly., Disp: , Rfl: Probiotic Product (PROBIOTIC BLEND PO), Take by mouth every morning (before breakfast)., Disp: , Rfl: psyllium (Metamucil) 0.36 g capsule, daily., Disp: , Rfl: QUERCETIN PO, Take 400 mg by mouth every morning (before breakfast)., Disp: , Rfl: Vitamin E 100 units tablet, Take by mouth every morning (before breakfast)., Disp: , Rfl: zinc gluconate 50 MG tablet, Take 100 mg by mouth daily., Disp: , Rfl: CHRONIC NARCOTIC USE: No Allergies: Pollen extract If patient has opioid allergy, is it okay to take Acetaminophen: N/A Social History: TOBACCO: reports that he has never smoked. He has never used smokeless tobacco. ETOH: reports current alcohol use of about 1.0 - 2.0 standard drink of alcohol per week. Social History Substance and Sexual Activity Drug Use Never Family History: No family history on file. REVIEW OF SYSTEMS: Review of Systems Constitutional: Negative for chills and fever. Respiratory: Negative for shortness of breath. Cardiovascular: Negative for chest pain. Pertinent positives as noted in the HPI. Physical Exam: Physical Exam Constitutional: General: He is awake. He is not in acute distress. Appearance: Normal appearance. HENT: Head: Normocephalic and atraumatic. Eyes: Extraocular Movements: Extraocular movements intact. Conjunctiva/sclera: Conjunctivae normal. Cardiovascular: Rate and Rhythm: Normal rate and regular rhythm. Heart sounds: Normal heart sounds. Pulmonary: Effort: Pulmonary effort is normal. Breath sounds: Normal breath sounds. Abdominal: Palpations: Abdomen is soft. Musculoskeletal: General: Normal range of motion. Cervical back: Normal range of motion. Skin: General: Skin is warm and dry. Neurological: General: No focal deficit present. Mental Status: He is alert and oriented to person, place, and time. Psychiatric: Mood and Affect: Mood normal. Behavior: Behavior normal. Behavior is cooperative. Vitals: Vitals Value Taken Time BP 139/77 09/30/23 1142 Temp 36.6 C (97.8 F) 09/30/23 1142 Pulse 67 09/30/23 1142 Resp 16 09/30/23 1142 SpO2 96 % 09/30/23 1142 BP 139/77 Pulse 67 Temp 36.6 C (97.8 F) (Temporal) Resp 16 Ht 1.664 m (5' 5.5) Wt 99.3 kg (219 lb) SpO2 96% BMI 35.89 kg/m Labs: No results found for: WBC, HGB, HCT, MCV, PLT No results found for: NA, K, CL, CO2, BUN, CREATININE, GLUCOSE, CALCIUM, PROT, BILIRUBINFL, ALKPHOS, AST, ALT, EGFR, GLOB Connor's Simple Cardiac Risk Index: CONNOR'S SIMPLE CARDIAC RISK SCORE: 0 Interpretation: 0 Points Class I 0.5% 1 Point Class II 1.3% 2 Points Class III 3.6% 3+ Points Class IV 9.1% METS >4 METS (Able to climb a flight of stairs with no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 09:45:00 AM Scheduled Provider:REGIS PHILLIPS DO Location:[facility] Appointment Type:PC OV Appointment Date:02/06/2025 11:00:00 AM Scheduled Provider:WILNER MEDEROS Location:[facility] Appointment Type:CV OV Future Scheduled Tests Radiology* CT Head or Brain w/o Contrast 05/08/24 [facility] Evaluation + Plan note Future Appointments Appointment Date:02/26/2025 02:00:00 PM Scheduled Provider:REGIS PHILLIPS DO Location:[facility] Appointment Type:PC OV Appointment Date:10/15/2025 09:00:00 AM Scheduled Provider: Location:[facility] Appointment Type:Echo - Echocardiogram Adult Appointment Date:10/19/2025 10:30:00 AM Scheduled Provider:RAMO CASPER Location:[facility] Appointment Type:CV OV Future Scheduled Tests Laboratory* Lipoprotein (a) 11/27/24 * Apolipoprotein B 11/27/24 * A1C Hemoglobin 11/27/24 * Lipid Profile 11/27/24 [facility] evaluation + Plan note Future Appointments Appointment Date:02/26/2025 02:00:00 PM Scheduled Provider:REGIS PHILLIPS DO Location:[facility] Appointment Type:PC OV Appointment Date:10/15/2025 09:00:00 AM Scheduled Provider: Location:[facility] Appointment Type:Echo - Echocardiogram Adult Appointment Date:10/19/2025 10:30:00 AM Scheduled Provider:RAMO CASPER Location:[facility] Appointment Type:CV OV Diagnostic Tests Pending * Apolipoprotein B 02/20/25 * Lipoprotein (a) 02/20/25 [facility] evaluation note* Diagnosis Syncope and collapse- Primary Palpitations Dyspnea on exertion Other dyspnea and respiratory abnormality Binocular visual disturbance Obstructive sleep apnea Obstructive sleep apnea (adult) (pediatric) Chronic insomnia Insomnia, unspecified Restless legs syndrome Restless legs syndrome (RLS) documented in this encounter [facility]* Diagnosis Syncope and collapse Binocular visual disturbance documented in this encounter [facility]* Diagnosis Syncope and collapse [facility]* Diagnosis Onset Date Resolution Status Encounter for screening for malignant neoplasm of [facility] Work Phone: evaluation note* Diagnosis Syncope and collapse Palpitations Dyspnea on exertion Other dyspnea and respiratory abnormality [facility]* Diagnosis Syncope and collapse Palpitations Dyspnea on exertion Other dyspnea and respiratory abnormality documented in this encounter [facility]* Diagnosis Syncope and collapse- Primary Palpitations Obstructive sleep apnea Obstructive sleep apnea (adult) (pediatric) Cerebrovascular disease Unspecified cerebrovascular disease Obstructive sleep apnea (adult) (pediatric) documented [facility]* Diagnosis TARIK (obstructive sleep apnea)- Primary Obstructive sleep apnea (adult) (pediatric) Chronic insomnia Insomnia, unspecified Restless legs syndrome Restless legs syndrome (RLS) documented [facility]* Diagnosis Obstructive sleep apnea- Primary Obstructive sleep apnea (adult) (pediatric) Insomnia, unspecified type documented [facility]* Diagnosis Obstructive sleep apnea- Primary Obstructive sleep apnea (adult) (pediatric) [facility] Diagnosis Obstructive sleep apnea- Primary Obstructive sleep apnea (adult) (pediatric) documented [facility]* Diagnosis Obstructive sleep apnea- Primary Obstructive sleep apnea (adult) (pediatric) documented [facility]* Diagnosis Obstructive sleep apnea- Primary Obstructive sleep apnea (adult) (pediatric) Insomnia, unspecified type Cerebrovascular accident (CVA), unspecified mechanism (HCC) 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 Hyperlipidemia, unspecified hyperlipidemia type Stenosis of carotid artery, unspecified laterality Coronary artery disease, unspecified vessel or lesion type, unspecified whether angina present, unspecified whether [place] or transplanted heart Other disorders of arteries, arterioles and capillaries in diseases classified elsewhere (HCC) [facility]* Diagnosis Obstructive sleep apnea- Primary Obstructive sleep apnea (adult) (pediatric) Insomnia, unspecified type Cerebrovascular accident (CVA), unspecified mechanism (HCC) Depression, unspecified depression type 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 [facility]* Diagnosis Obstructive sleep apnea- Primary Obstructive sleep apnea (adult) (pediatric) Insomnia, unspecified type [facility]* Diagnosis Obstructive sleep apnea- Primary Obstructive sleep apnea (adult) (pediatric) Insomnia, unspecified type [facility] Author Daniel Basurto [facility] April 15, 2023 6:37am Note Date/Time April 15, 2023 6: 37am [facility] Medical Records Department [address] [place] [id number] History & Physical Exam 04/15/23 0635 MR#: [id number] Acct: [id number] Name: TRACY CARDOSO Rep #:[id number] : 1955 67 From: Daniel Basurto DO PCP: Dr. Regis Phillips, DO Status:[facility] Location: [place] [address] HPI - General General Date of Admission: 04/15/23 Date of Service: 04/15/23 Chief Complaint: Screening colonoscopy HPI Narrative TRACY CARDOSO, is a 67 M who presents today for a screening colonoscopy. Past medical history is positive for hypertension which is controlled with [id number] mg daily. He had a colonoscopy approximately 10 years ago and it was normal except for hemorrhoidal disease. He has no family history of colorectal malignancy. He does not have any abdominal pain, cramping, bleeding or any change in bowel movement. All other 16 review of systems are negative except as revised mentioned HPI. [facility] Medical History (Updated 04/13/23 @ 15:41 by Whitney Joshi) Alcohol use Arthritis Asthma Back pain Blackout Cardiology follow-up encounter Family hx of colon cancer Fatty liver Generalized anxiety disorder High cholesterol History of echocardiogram History of IBS History of stress test HTN (hypertension) Injury of head and neck Insomnia Kidney stones Major depressive disorder Mixed hyperlipidemia TARIK (obstructive sleep apnea) Prediabetes Seasonal allergies Shortness of breath on exertion Sleep apnea Tricuspid valve regurgitation Wears glasses Home Medications metoprolol succinate 100 mg tablet,extended release 24 hr 50 mg PO DAILY 03/12/23 [History Last Taken Unknown] Allergy/AdvReac Type Severity Reaction Status Date / Time No Known Allergies Allergy Verified 04/15/23 05:46 Family History (Updated 03/12/23 @ 14:21 by Lisa Atkinson) Daughter Colon cancer Grandmother Colon cancer Unknown Rectal cancer Surgical History (Updated 04/13/23 @ 15:41 by Whitney Joshi) History of esophagogastroduodenoscopy (EGD) History of Rosa fundoplication Hx of colonoscopy Hx of inguinal hernia repair Hx of knee surgery Hx of shoulder surgery Hx of surgical procedure Social History (Updated 03/12/23 @ 14:22 by Lisa Atkinson) household members: spouse current occupational status: employed Smoking Status: Never smoker ROS Review of Systems ROS Unobtainable: other Constitutional Constitutional: Denies fatigue, fever(s), poor appetite, weight gain or weight loss ENT HEENT: Denies mouth lesions Cardiovascular Cardiovascular: Denies abdominal bloating, abdominal edema or abdominal pain Respiratory/Chest Respiratory/Chest: Denies change in mental status, change in phlegm color, chestcongestion or chest tightness Gastrointestinal Gastrointestinal: Denies belching, bloating, change in bowel habits, change in stool character, chewing difficulty, coffee ground emesis, constipation, cramping, diarrhea, dyspepsia, dysphagia, early satiety, excessive flatus, fecalincontinence, heartburn, hematemesis, hematochezia, hemorrhoids, loose stools, melena, nausea, odynophagia, rectal bleeding, tenesmus, vomiting or weight changes Genitourinary Genitourinary: Denies abdominal discomfort, burning urination or itching Musculoskeletal Musculoskeletal: Reports as per HPI; Denies muscle weakness or myalgias Integumentary Integumentary: Denies jaundice Neurologic Neurologic: Denies lack of coordination or weakness Psychiatric Psychiatric: Denies confusion, depression, memory loss, mood swings, paranoia orsuicidal ideation Endocrine Endocrinology: Denies systems reviewed and no addt'l complaints, except as documented Hematologic/Lymphatic Hematologic/Lymphatic: Denies anemia, easy bleeding, easy bruising or lymphadenopathy Allergic/Immunologic Allergic/Immunologic: Denies systems reviewed and no addt'l complaints, except as documented Vital Signs Vital Signs Vital Signs: 04/15/23 05:49 04/15/23 05:50 Temperature 97.2 F L Temperature Source Temporal Pulse Rate 62 Respiratory Rate 18 Respiratory Pattern Normal Blood Pressure 136/77 H Blood Pressure Mean 96 Blood Pressure Source Monitor Blood Pressure Position Semi-Fowlers Blood Pressure Location Right Arm Pulse Ox 96 Oxygen Delivery Method Room Air Weight Weight: 214 lb 3.2 oz Body Mass Index (BMI) 35.1 Physical Exam Const alert, oriented x3, no apparent distress, healthy appearing and well nourished General Appearance: cooperative, comfortable, well kempt and well developed Orientation / Consciousness: awake and oriented to person HEENT Head and Scalp: normocephalic and atraumatic Face and Sinus: normal facial exam Mouth: oral and palatal mucosa normal Eyes General Eye: normal appearance of both eyes Neck full ROM Lymph Lymphatic: no lymphadenopathy noted Chest inspection of chest normal Resp normal respiratory effort and no use of accessory muscles Cardio regular rate and regular rhythm GI normal to inspection, nondistended, normoactive bowel sounds, soft to palpation,non-tender, non-distended and no masses Auscultation: normoactive bowel sounds Palpation: soft Percussion: normal to percussion Rectal Exam: visual inspection normal and normal sphincter tone no CVA tenderness Back/Spine no CVA tenderness and normal ROM Extremity normal to inspection Peripheral Pulses: Yes pulses 2+ throughout Skin no rashes or lesions noted General Skin Exam: no breakdown, elasticity normal and turgor normal Neuro oriented x3 Motor Exam: strength 5/5 throughout Psych mental status grossly normal Appearance: grossly normal Attitude: calm Activity / Motor Behavior: appropriate eye contact Speech: normal speech Thought Process: normal thought process Thought Content: normal thought content Attention / Concentration: attention grossly intact Memory / Cognition: memory grossly intact Insight: insight good Judgement: judgement good Assessment & Plan Assessment/Plan (1) Encounter for screening for malignant neoplasm of colon: PLAN: He was explained alternatives, risk, benefits including not withstanding bleeding, infection, sepsis, perforation, need for emergent surgery . He will have an ASA of 2. 04/15/23 0637 <Electronically signed by Daniel Basurto DO> Cosigner Signature (if applicable): CC: Dr. Regis Phillips DO; Daniel Basurto DO~ Signed [facility] Work Phone: Hospital course Narrative No data available for this section [facility] Hospital Discharge instructions No data available for this section [facility] Progress note No data available for this section [facility] Reason for referral (narrative)No reason for [facility] Work Phone: Summary Purpose Family History No Family History Records Found Relationship Condition Age at Onset Recorded Date/T chantel daughter Malignant neoplasm of colon Unknown grandmother Malignant neoplasm of colon Unknown Not Specified Malignant neoplasm of rectum Unknown Relationship Condition Age at Onset Recorded Date/T chantel Not Specified Hypertension Unknown daughter Malignant neoplasm of colon Unknown grandmother Malignant neoplasm of colon Unknown unrelated friend Malignant neoplasm of rectum Unknown father Cardiac disease Unknown sister Diabetes mellitus Unknown Advance Directives No Advanced Directives Records Found Advance Directive Response Recorded Date/ Time Living Will No April 13 3 3:41pm Power of Dye Line Operator No April 13 023 3:41pm Reason for Referral Specialty Diagnoses / Procedures Referred By Nguyen t Referred To Contact Neurology Diagnoses Syncope and collapse Binocular visual disturbance Procedures EEG extended more than 1 hour Lety Fierro MD [address] [facility] [address] [place] [address] Referral ID Status Reason Start Date Expiration Date V isits Requested Visits Authorized [id number] Authorized 03/18/2023 09/14/2023 1 1 Specialty Diagnoses / Procedures Referred By Contac t Referred To Contact Radiology Diagnoses Syncope and collapse Procedures MR brain w and wo contrast Lety Fierro MD [address] [place] [address] Referral ID Status Reason Start Date Expiration Date V isits Requested Visits Authorized [id number] Pending Review 03/18/2023 09/14/2023 1 1 Specialty Diagnoses / Procedures Referred By Contac t Referred To Contact Pulmonology Diagnoses Dyspnea on exertion Procedures ME OFFICE/OUTPATIENT [facility] 60-74 MINUTES Lety Fierro MD [address] [place] [address] Referral ID Status Reason Start Date Expiration Date Visits Requested Visits Authorized [id number] Pending Review Specialty Services Required 03/18/2023 03/17/2024 [address] Leonid Elias [address] [place] [address] Call: Specialty Diagnoses / Procedures Referred By Contac t Referred To Contact Cardiology Diagnoses Syncope and collapse Palpitations Dyspnea on exertion Procedures Transthoracic echocardiogram (TTE) complete with contrast, bubble, strain, and 3D PRN ME ECHO TTHRC R-T 2D W/WOM-MODE COMPL SPEC&COLR D ME TTE W OR WO FOL WCON,DOPPLER Lety Fierro MD [address] [place] [address] Referral ID Status Reason Start Date Expiration Date Visits Requested Visits Authorized [id number] Pending Review Perform Procedure 03/18/2023 09/14/2023 1 1 Specialty Diagnoses / Procedures Referred By Contac t Referred To Contact Cardiology Diagnoses Syncope and collapse Palpitations Dyspnea on exertion Procedures ME OFFICE/OUTPATIENT [facility] 60-74 MINUTES Lety Fierro MD [address] [place] [address] Angel Wright MD [address] [facility], [address] [place] [address] Referral ID Status Reason Start Date Expiration Date Visits Requested Visits Authorized [id number] Pending Review Specialty Services Required 03/18/2023 03/17/2024 1 1 Specialty Diagnoses / Procedures Referred By Contac t Referred To Contact Cardiology Diagnoses Syncope and collapse Palpitations Dyspnea on exertion Procedures Cardiac holter monitor (24 hours) Lety Fierro MD [address] [facility] [address] [place] [address] Referral ID Status Reason Start Date Expiration Date V isits Requested Visits Authorized [id number] Pending Review 03/18/2023 09/14/2023 1 1 Chief Complaint and Reason for Visit Chief Complaint Amb Documentation Reason for Visit Encounter for screen ing for malignant neoplasm of colon Chief Complaint Admit Date OVERDUE FOR OV/LAST SEEN 05/08 11:21am EORDER December 08, 2024 12: 45pm LUMBAR SPINE February 15, 2025 2:23p m Room February 15, 2025 2:44p m Reason for Visit Admit Date Coronary artery disease December 01, 2024 11:21am CVA (cerebral vascular accident) November 142024 11:21am Essential (primary) hypertension November 142024 11:21am Chief Complaint Admit Date OVERDUE FOR OV/LAST SEEN 05/08 11:21am EORDER December 08, 2024 12: 45pm LUMBAR SPINE February 15, 2025 2:23p m Room February 15, 2025 2:44p m pain, stenosis February 22, 2025 12:5 3pm Reason for Visit Admit Date Coronary artery disease December 01, 2024 11:21am CVA (cerebral vascular accident) November 142024 11:21am Essential (primary) hypertension November 142024 11:21am Degenerative disc disease (D DD) of lumbar region with discogenic back pain February 15, 2025 2:23pm Lumbar stenosis with neurogenic claudica tion February 15, 2025 2:23pm Chief Complaint Admit Date OVERDUE FOR OV/LAST SEEN 05/08 11:21am EORDER December 08, 2024 12: 45pm LUMBAR SPINE February 15, 2025 2:23p m Room 5 February 15, 2025 2:44p m pain, stenosis February 22, 2025 12:5 3pm LUMBAR SPINE March 01, 2025 3:30 pm Chief Complaint Admit Date LUMBAR SPINE February 15, 2025 2:23p m Room 5 February 15, 2025 2:44p m pain, stenosis February 22, 2025 12:5 3pm LUMBAR SPINE March 01, 2025 3:30 pm OVERDUE FU April 26, 2025 3:20pm Reason for Visit Admit Date Degenerative disc disease (D DD) of lumbar region with discogenic back pain February 15, 2025 2:23pm Lumbar stenosis with neurogenic claudica tion February 15, 2025 2:23pm Degenerative disc disease (D DD) of lumbar region with discogenic back pain March 01, 2025 3:30pm Lumbar stenosis with neurogenic claudica tion March 01, 2025 3:30pm Coronary artery disease April 26, 2025 3:20pm CVA (cerebral vascular accident) [facility] 2024 3:20pm Essential (primary) hypertension [facility] 2024 3:20pm TARIK (obstructive sleep apnea) April 26, 2025 3:20pm Chief Complaint Admit Date LUMBAR SPINE February 15, 2025 2:23p m Room 5 February 15, 2025 2:44p m pain, stenosis February 22, 2025 12:5 3pm LUMBAR SPINE March 01, 2025 3:30 pm OVERDUE FU April 26, 2025 3:20pm EORDERS May 03, 2025 12:22pm Additional Source Comments (unrecognized sect ion and content) No Status Records FoundNo Status Records FoundNo Status Records FoundNo Status Records FoundNo Status Records FoundNo Status Records FoundNo Status Records FoundNo Status Records Found INFORMATION SOURCE (unrecogn ized section and content) DATE CREATED AUTHOR 02/03/2018 Nila [facility] DATE CREATED AUTHOR AUTHOR'S ORGANIZ ATION 02/03/2018 Nila [facility] DATE CREATED AUTHOR AUTHOR'S ORGANIZ ATION 02/07/2018 [facility] DATE CREATED AUTHOR AUTHOR'S ORGANIZ ATION 04/21/2024 [facility] DATE CREATED AUTHOR AUTHOR'S ORGANIZ ATION 09/30/2024 [facility] DATE CREATED AUTHOR AUTHOR'S ORGANIZ ATION 01/28/2025 [facility] DATE CREATED AUTHOR AUTHOR'S ORGANIZ ATION 03/07/2025 [facility] DATE CREATED AUTHOR AUTHOR'S ORGANIZ ATION [facility] Care Team (unrecognized sect ion and content) Care Team Personnel Name: REGIS PHILLIPS DO Position: P4 Physician - Primary Care Member Role: Primary Care Physician Address: Address: [address] [place] [id number] [place] [address] Care Team Related Persons Name: LOTUS PRITCHETT Address: [facility] Address: Home [address] [place], [place] [id number] [place] Name: NORRIS CARDOSO Name: JOSE R CARDOSO Address: Home [address] [id number] [place] Address: Temporary [address] [id number] Care Team Personnel Name: REGIS PHILLIPS DO Position: P4 Physician - Primary Care Member Role: Primary Care Physician Address: Address: [address] [place] [id number] [place] [address] Care Team Related Persons Name: NORRIS CARDOSO Patient Care team informatio n (unrecognized section and content) Architectural Project Manager Relationship Specialty Start Date End Date Regis Phillips DO [address] [place] [address] PCP - General Family Medicine 02/11/23 Architectural Project Manager Relationship Specialty Start Date End Date Regis Phillips DO [address] [place] [address] PCP - General Family Medicine 02/11/23 Architectural Project Manager Relationship Specialty Start Date End Date Regis Phillips DO [address] [place] [address] PCP - General Family Medicine 02/11/23 Architectural Project Manager Relationship Specialty Start Date End Date Regis Phillips DO [address] [place] [address] PCP - General Family Medicine 02/11/23 Team Status: Active Member Role Status Dates Dr. Lauri Beasley MD Family Provider Active Dr. Regis Phillips DO Primary Care Provider Active Team Status: Active Member Role Status Dates Dr. Lauri Beasley MD Primary Care Provider Active [facility] Attending Provider Active Team Status: Active Member Role Status Dates Dr. Daniel Basurto DO Attending Provider, Other Prov ider Active Dr. Regis Phillips DO Primary Care Provider Active Dr. Regis Patel MD Referring Provider Active Team Status: Inactive Member Role Status Dates Dr. Daniel Basurto DO Attending Provider Active Dr. Regis Phillips DO Primary Care Provider Active Dr. Regis Patel MD Referring Provider Active Architectural Project Manager Relationship Specialty Start Date End Date Regis Phillips DO [address] [place] [address] PCP - General Family Medicine 02/11/23 Architectural Project Manager Relationship Specialty Start Date End Date Regis Phillips DO [address] [place] [address] PCP - General Family Medicine 02/11/23 Architectural Project Manager Relationship Specialty Start Date End Date Regis Phillips DO [facility] [place] [address] PCP - General Family Medicine 02/11/23 Architectural Project Manager Relationship Specialty Start Date End Date Regis Phillips DO [address] [place] [address] PCP - General Family Medicine 02/11/23 Architectural Project Manager Relationship Specialty Start Date End Date Regis Phillips DO [address] [place], [place] [phone] PCP - General Family Medicine 02/11/23 Architectural Project Manager Relationship Specialty Start Date End Date Regis Phillips DO [address] [place] [id number] PCP - General Family Medicine 02/11/23 Architectural Project Manager Relationship Specialty Start Date End Date Regis Phillips DO [address] [place] [address] PCP - General Family Medicine 02/11/23 Architectural Project Manager Relationship Specialty Start Date End Date Regis Phillips DO [address] [place] [id number] PCP - General Family Medicine 02/11/23 Architectural Project Manager Relationship Specialty Start Date End Date Regis Phillips DO [address] [place] [address] PCP - General Family Medicine 02/11/23 Architectural Project Manager Relationship Specialty Start Date End Date Regis Phillips DO [address] [place] [id number] PCP - General Family Medicine 02/11/23 Architectural Project Manager Relationship Specialty Start Date End Date Regis Phillips DO [address] [place] [address] PCP - General Family Medicine 02/11/23 Architectural Project Manager Relationship Specialty Start Date End Date Regis Phillips DO [address] [place] [phone] PCP - General Family Medicine 02/11/23 Architectural Project Manager Relationship Specialty Start Date End Date Regis Phillips DO [address] [place] [address] PCP - General Family Medicine 02/11/23 Team Status: Active Member Role/Relationship Status Dates Dr. Lauri Beasley MD Family Provider Active Dr. Regis Phillips DO Primary Care Provider Active Team Status: Inactive Member Role/Relationship Status Dates Dr. Regis Phillips DO Primary Care Provider Active Start: December 01, 2024 End: December 01, 2024 Dr. Regis Phillips DO Referring Provider Active Start: December 01, 2024 End: December 01, 2024 Dr. aTno Goldsmith MD Attending Provider Active S tart: December 01, 2024 End: December 01, 2024 Team Status: Inactive Member Role/Relationship Status Dates Dr. Regis Phillips DO Primary Care Provider Active Start: December 08, 2024 End: December 08, 2024 Eri AL PA Attending Provider Active Start: December 08, 2024 End: December 08, 2024 Eri LA PA Referring Provider Active Start: December 08, 2024 End: December 08, 2024 Team Status: Active Member Role/Relationship Status Dates Dr. Regis Phillips DO Primary Care Provider Active Start: February 15, 2025 Dr. Regis Phillips DO Referring Provider Active Start: February 15, 2025 SERVANDO Hunter Attending Provider Active Star t: February 15, 2025 Team Status: Inactive Member Role/Relationship Status Dates Dr. Regis Phillips DO Primary Care Provider Active Start: February 15, 2025 End: February 15, 2025 Dr. Tano Goldsmith MD Attending Provider Active S tart: February 15, 2025 End: February 15, 2025 Team Status: Inactive Member Role/Relationship Status Dates Dr. Regis Phillips DO Primary Care Provider Active Start: February 15, 2025 End: February 15, 2025 Dr. Regis Phillips DO Referring Provider Active Start: February 15, 2025 End: February 15, 2025 SERVANDO Hunter Attending Provider Active Star t: February 15, 2025 End: February 15, 2025 Team Status: Active Member Role/Relationship Status Dates Dr. Regis Phillips DO Primary Care Provider Active Team Status: Inactive Member Role/Relationship Status Dates Dr. Regis Phillips DO Primary Care Provider Active Start: February 22, 2025 End: February 22, 2025 Mrelyserafin Stubbsk , PA Attending Provider Active Star t: February 22, 2025 End: February 22, 2025 Merly Kristal , PA Referring Provider Active Star t: February 22, 2025 End: February 22, 2025 Team Status: Inactive Member Role/Relationship Status Dates Dr. Regis Phillips DO Primary Care Provider Active Start: March 01, 2025 End: March 01, 2025 Dr. Regis Phillips DO Referring Provider Active Start: March 01, 2025 End: March 01, 2025 Merlyserafin Stubbsk , PA Attending Provider Active Star t: March 01, 2025 End: March 01, 2025 Team Status: Inactive Member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
[2025-06-12] MEDS: Lactated Ringers 1,000 ML 15 ML IV (06:28)
[2025-06-12] MEDS: Magnesium 1 GM over 15 mins IV (06:31)
--- NOTE | 2025-06-12 06:51 | PCM.PRE.AN2 ---
ASA Classification* ASA Classification ASA Classification: 3 Assessment & Plan Anesthesia* Anesthesia Assessment Anesthesia Assessment: Discussed sedation and/or anesthesia options, risks, benefits, and alternatives with patient/parents/legal guardian/POA. Questions invited. The patient/parents/legal guardian/POA seems to understand and agrees to proceed with anesthesia plan. Reviewed the physical assessment, medical history, allergy history and patient home medications list prior to surgery/procedure/anesthetic and documented any changes. Performed airway and anesthesia risk assessments. Anesthesia Type Anesthesia Type: Epidural History Source History Obtained from:: Patient and Chart Anesthesia Focused Assessment* Temperature: 97.1 F Pulse Rate: 81 Blood Pressure: 125/83 Respiratory Rate: 16 Pulse Ox: 97 Oxygen Delivery Method: Room Air Airway Assessment Mouth opens: >3 cm Mallampati Score: II Teeth Condition: Intact Neck Range of motion (ROM): Full ROM Labs Anesthesia Preop lab: CBC WBC, (4.4-11.0) 6.1 K/mm3 05/31/25, 10:04 RBC, (4.6-6.2) 4.78 M/mm3 05/31/25, 10:04 Hgb, (13.0-16.5) 14.4 g/dL 05/31/25, 10:04 Hct, (40-54) 45.4 % 05/31/25, 10:04 Plt Count, (150-450) 263 K/mm3 05/31/25, 10:04 CHEMISTRY Potassium, (3.3-5.1) 4.4 mmol/L 05/31/25, 10:04 Sodium, (133-145) 140 mmol/L 05/31/25, 10:04 Magnesium, (1.5-2.2) 2.2 mg/dL 05/31/25, 10:04 Phosphorus, (2.5-4.9) 3.1 mg/dL 04/28/24, 06:30 BUN, (4-19) 21 mg/dL H 05/31/25, 10:04 Creatinine, (0.70-1.20) 1.09 mg/dL 05/31/25, 10:04 Glucose, (70-99) 106 mg/dL H 05/31/25, 10:04 COAG Pre-Assessment Diagnosis/Proposed Procedure Planned Operative Procedure(s): ERAS 360 LUMBAR FUSION L3-4, LUMBAR LAMINECTOMY DECOMPRESSION Anesthesia History Anesthesia History - deputy of counter intelligence: Anesthesia History - deputy of counter intelligence Hx Hospitalization No: STROKE 04/2024 NO 05/29/25 10:13 DEFICITS Any Problems With Anesthesia No 05/29/25 10:13 Cholinesterase deficiency No 05/29/25 10:13 You/Your Family Experience No 05/29/25 10:13 fever (hyperthermia) with Relationship Recent Exposure to Contagious No 06/12/25 06:05 Disease Does patient have nerve No 05/29/25 10:13 stimulator Patient instructed to have device shut off --Does patient have Pacemaker No 06/12/25 06:09 or ICD? When Was Last Pacemaker Check QUESTION #4 FULL TEXT: You/Your Family Experience fever (hyperthermia) with Anesthesia Last Oral Intake Last Oral intake: Last Oral Intake NPO since 04:30 06/12/25 06:09 Meds taken in AM with sips of Yes 06/12/25 06:09 water? Meds patient instructed to take am of surgery PONV PONV - deputy of counter intelligence: PONV - deputy of counter intelligence Female No 05/29/25 10:13 HX of Motion Sickness No 05/29/25 10:13 HX of N/V After Surgery No 05/29/25 10:13 Non-Smoker Yes 05/29/25 10:13 Duration of Surgery greater Yes 05/29/25 10:13 than 60 minutes Number of Risk Factors 2 05/29/25 10:13 PONV Score Moderate Risk 05/29/25 10:13 Height & Weight Height & Weight: Anesthesia: Height & Weight Height 5 ft 5.5 in 06/12/25 06:09 Weight: 93.984 kg 06/12/25 06:09 Body Mass Index (BMI) 33.9 06/12/25 06:09 Respiratory Assessment Respiratory Assessment - deputy of counter intelligence: Respiratory Tract Infection Hx - deputy of counter intelligence Hx Respiratory Tract Infection No 05/29/25 10:13 STOP Sleep Apnea STOP Sleep Apnea - deputy of counter intelligence: STOP Sleep Apnea - deputy of counter intelligence Hx Hypertension Yes: CONTROLLED WITH MEDS 05/29/25 10:13 Hx Sleep Apnea Yes: HAS IMPLANTABLE DEVICE, 05/29/25 10:13 DOES NOT WORK CPAP No 05/29/25 10:13 BIPAP No 05/29/25 10:13 Do you snore loudly (louder than talking or can be heard Do you often feel tired/ fatigued/ sleepy during daytime? Has anyone observed you stop breathing during sleep? STOP Results Positive 05/29/25 10:13 QUESTION #5 FULL TEXT : Do you snore loudly (louder than talking or can be heard through closed doors)? Tobacco Use History Tobacco Use History - deputy of counter intelligence: Tobacco Use History - deputy of counter intelligence Tobacco Use Smoking Status Never smoker 05/29/25 10:13 Hx Tobacco Use No 05/29/25 10:13 Years Smoking Packs Smoked per Day Smoking Cessation Date was within the last 15 years Hx Smoking Cessation Date Hx Smoking Cessation Counseling Hematologic Medial History Hematologic Hx - deputy of counter intelligence: Hematologic Medical Hx - manager quality Hx of Blood Transfusion No 05/29/25 10:13 Hx of Transfusion in last 3 No 05/29/25 10:13 Months Date of Last Transfusion (if within last 3 months) Ever experience any problems No 05/29/25 10:13 with transfusion(s)? Specify any problems Hx of Preganancy in last 3 N/A 05/29/25 10:13 Months Nurse Filling Out Transfusion [email or web address] 05/29/25 10:13 & Questions: Date: 05/29/25 05/29/25 10:13 Time: 10:20 05/29/25 10:13 Patient unable to answer at this time (ie. confused, unrespo /Reproduction History /Reproductive History - deputy of counter intelligence: /Reproductive Hx- deputy of counter intelligence Hx Now Gestational Age (in weeks): EDC: Hx Hx Para Hx Section SAB Active Medications Active Medications: Current Medications Generic Name Dose Route Start Last Admin Trade Name Freq PRN Reason Stop Dose Admin Acetaminophen 1,000 mg 06/12/25 07:30 06/12/25 06:13 Acetaminophen 500 Mg Tablet PO 06/12/25 07:31 1,000 mg PREOP ONE Administration Cefazolin Sodium 2 gm/ Sodium 110 mls @ 150 mls/hr 06/12/25 07:30 Chloride IV 06/12/25 08:13 INTRAOP ONE Tranexamic Acid 1,000 mg/ 110 mls @ 440 mls/hr 06/12/25 07:30 Sodium Chloride IV 06/12/25 07:44 INTRAOP ONE Tranexamic Acid 1,000 mg/ 110 mls @ 440 mls/hr 06/12/25 07:30 Sodium Chloride IV 06/12/25 07:44 INTRAOP ONE Magnesium Sulfate 1 gm/ 102 mls @ 408 mls/hr 06/12/25 07:30 06/12/25 06:31 Dextrose IV 06/12/25 07:44 408 mls/hr PREOP ONE Administration Lactated Ringer's 1,000 mls @ 15 mls/hr 06/12/25 05:45 06/12/25 06:28 IV 15 mls/hr .Q48H ANNABELLA Administration Insulin Human Lispro 1 - 6 unit 06/12/25 07:30 Insulin Lispro 100 Unit/Ml Insuln.Pen SC Q4H PRN PRN BG>/= 180, SEE PROTOCOL Protocol PFSH Medical History Wears glasses Fracture, skull History of echocardiogram History of Holter monitoring Cardiology follow-up encounter CVA (cerebral vascular accident) H/O multiple concussions Coronary artery disease History of anxiety History of restless legs syndrome History of Raynaud's syndrome Wenckebach second degree AV block Syncope Nonalcoholic hepatosteatosis Left carotid artery stenosis Hyperlipidemia, mixed Essential (primary) hypertension Kidney stones Arthritis Back pain Injury of head and neck Blackout History of IBS Sleep apnea Asthma Seasonal allergies Tricuspid valve regurgitation Major depressive disorder Insomnia Prediabetes TARIK (obstructive sleep apnea) Encounter for screening for malignant neoplasm of colon Home Medications ?Medication ?Instructions ?Recorded ?Last Taken ?Type cholecalciferol (vitamin D3) 50 50 mcg PO DAILY supplement 05/06/23 06/11/25 History mcg (2,000 unit) capsule ascorbic acid (vitamin C) 500 mg 500 mg PO DAILY SUPPLEMENT #1 TAB 05/09/24 06/11/25 Rx tablet aspirin 81 mg tablet,delayed 81 mg PO BREAKFAST SUPPLEMENT #1 05/09/24 06/10/25 Rx release TAB evolocumab 140 mg/mL subcutaneous 140 mg subcut Q2W CHOLESTEROL 12/01/24 05/15/25 History pen injector (Ayaka Reatna) cetirizine 10 mg capsule (Zyrtec) 10 mg PO QDAY PRN allergic symptoms 02/15/25 Unknown History cayenne pepper 1 cap PO DAILY SUPPLEMENT 04/26/25 06/11/25 History garlic 500 mg capsule 500 mg PO QDAY SUPPLEMENT 04/26/25 06/10/25 History lactobacillus combination no.9 4 4,000 mmu cells PO QDAY SUPPLEMENT 04/26/25 06/11/25 History billion cell capsule (Adult 50 Plus Probiotic) carvedilol 25 mg tablet 25 mg PO BID SUPPLEMENT #180 tabs 05/25/25 06/12/25 04:30 Rx losartan 100 mg tablet 100 mg PO DAILY HTN 05/29/25 06/12/25 04:30 History magnesium glycinate 100 mg (as 100 mg PO DAILY SUPPLEMENT 05/29/25 06/11/25 History glycinate) tablet (Mag Glycinate) nitroglycerin 0.4 mg sublingual 0.4 mg sublingual Q5M PRN CHEST 05/29/25 Unknown History tablet PAIN tamsulosin 0.4 mg capsule 0.4 mg PO QHS ENLARGED PROSTATE 05/29/25 06/11/25 History amlodipine 5 mg tablet 5 mg PO QDAY HTN #30 tabs 06/11/25 06/12/25 04:30 Rx fluticasone furoate 50 1 inh inhalation breathing 06/12/25 06/11/25 History mcg-vilanterol 25 mcg/dose inhalation powder (Breo Ellipta) nitric oxide 1 cap PO DAILY supplement 06/12/25 06/11/25 History vitamin B complex 1 cap PO DAILY supplement 06/12/25 06/11/25 History zinc gluconate 50 mg tablet 50 mg PO DAILY supplement 06/12/25 06/11/25 History Allergy/AdvReac Type Severity Reaction Status Date / Time pollen extracts Allergy RUNNY NOSE Verified 06/12/25 05:58 Family History Daughter Colon cancer Grandmother Colon cancer Unknown Rectal cancer Father Heart disease of a heart attack in his mid 50s Sister Diabetes Mother , Intracerebral bleed at 19 years of age No problems noted. Other Hypertension Surgical History H/O repair of biceps tendon History of coronary artery stent placement History of cardiac catheterization History of PTCA 1 History of bilateral carpal tunnel release Hx of surgical procedure History of esophagogastroduodenoscopy (EGD) Hx of shoulder surgery Hx of knee surgery History of Little fundoplication Hx of inguinal hernia repair Hx of colonoscopy Social History household members: family and other details: Lives with his spouse and 2 of his children live with him housing: house number of children: 5 current occupational status: employed current occupation: Works at [employer] in [place] Smoking Status: Never smoker alcohol intake: current Alcohol type: beer details: 1-2 cans a week substance use type: does not use and other details: Used to be a pot smoker Review of Systems (Anesthesia) ROS Narrative System reviewed and no additional complaints, except as documented.
--- NOTE | 2025-06-12 07:14 | PCM.HP.BLA ---
History and Physical Date of Admission: 06/12/25 MR#: [id number] Acct: [id number] Name: TRACY GOSS Rep #: [id number] : 1955 Provider: Dr. Saad Vidales MD Age/Sex: 70/M Location: [facility] [place] Status: Signed Intake Vital Signs 03/01/2515:31 04/26/2515:56 06/05/2510:27 Height 5 ft 5.5 in 5 ft 5.5 in 5 ft 5.5 in Weight: 196 lb 201 lb BMI 32.1 32.9 Intake Visit Reasons: lumbar spine Chief Complaint: Lumbar spine pre op Accompanied by: Is patient in pain?: No Allergies pollen extracts Allergy (Verified 06/05/25 10:34) RUNNY NOSE Medications ?Medication ?Instructions ?Recorded ?Confirmed ?Type cholecalciferol (vitamin D3) 50 50 mcg PO DAILY supplement 05/06/23 06/05/25 History mcg (2,000 unit) capsule ascorbic acid (vitamin C) 500 mg 500 mg PO DAILY SUPPLEMENT #1 TAB 05/09/24 06/05/25 Rx tablet aspirin 81 mg tablet,delayed 81 mg PO BREAKFAST SUPPLEMENT #1 05/09/24 06/05/25 Rx release TAB evolocumab 140 mg/mL subcutaneous 140 mg subcut Q2W CHOLESTEROL 12/01/24 06/05/25 History pen injector (Ayaka Retana) cetirizine 10 mg capsule (Zyrtec) 10 mg PO QDAY PRN allergic symptoms 02/15/25 06/05/25 History cayenne pepper 1 cap PO DAILY SUPPLEMENT 04/26/25 06/05/25 History garlic 500 mg capsule 500 mg PO QDAY SUPPLEMENT 04/26/25 06/05/25 History lactobacillus combination no.9 4 4,000 mmu cells PO QDAY SUPPLEMENT 04/26/25 06/05/25 History billion cell capsule (Adult 50 Plus Probiotic) carvedilol 25 mg tablet 25 mg PO BID SUPPLEMENT #180 tabs 05/25/25 06/05/25 Rx losartan 100 mg tablet 100 mg PO DAILY HTN 05/29/25 06/05/25 History magnesium glycinate 100 mg (as 100 mg PO DAILY SUPPLEMENT 05/29/25 06/05/25 History glycinate) tablet (Mag Glycinate) nitric oxide gas 4 dose PO DAILY SUPPLEMENT 05/29/25 06/05/25 History nitroglycerin 0.4 mg sublingual 0.4 mg sublingual Q5M PRN CHEST 05/29/25 06/05/25 History tablet PAIN tamsulosin 0.4 mg capsule 0.4 mg PO QHS ENLARGED PROSTATE 05/29/25 06/05/25 History Have you fallen in the past year?: No PFSH Medical History Wears glasses Fracture, skull History of echocardiogram History of Holter monitoring Cardiology follow-up encounter CVA (cerebral vascular accident) H/O multiple concussions Coronary artery disease History of anxiety History of restless legs syndrome History of Raynaud's syndrome Wenckebach second degree AV block Syncope Nonalcoholic hepatosteatosis Left carotid artery stenosis Hyperlipidemia, mixed Essential (primary) hypertension Kidney stones Arthritis Back pain Injury of head and neck Blackout History of IBS Sleep apnea Asthma Seasonal allergies Tricuspid valve regurgitation Major depressive disorder Insomnia Prediabetes TARIK (obstructive sleep apnea) Encounter for screening for malignant neoplasm of colon Surgical History H/O repair of biceps tendon History of coronary artery stent placement History of cardiac catheterization History of PTCA 1 History of bilateral carpal tunnel release Hx of surgical procedure History of esophagogastroduodenoscopy (EGD) Hx of shoulder surgery Hx of knee surgery History of Little fundoplication Hx of inguinal hernia repair Hx of colonoscopy Family History Daughter Colon cancer Grandmother Colon cancer Unknown Rectal cancer Father Heart disease of a heart attack in his mid 50s Sister Diabetes Mother , Intracerebral bleed at 19 years of age No problems noted. Other Hypertension Social History household members: family and other details: Lives with his spouse and 2 of his children live with him housing: house number of children: 5 current occupational status: employed current occupation: Works at [employer] in [place] Smoking Status: Never smoker alcohol intake: current Alcohol type: beer details: 1-2 cans a week substance use type: does not use and other details: Used to be a pot smoker HPI lumbar spine Details: This documentation accurately reflects the service provided and the decisions made by me, Dr. Saad Vidales MD 06/05/25 1027. Part of today?s visit was documented by Mciha Lozada MA, acting as scribe. TRACY GOSS is a 70 year old M here today for pre op. Patient doesn't havea ny pain today. He would like to discuss more about surgery. The patient is a 70-year-old male presenting with lumbar spinal stenosis and associated symptoms. The patient reports chronic lower back pain radiating to the back of both legs, reaching up to the knees, with equal intensity on both sides. He describes a sensation in his feet efrain to being wrapped in cellophane, with intermittent numbness and a feeling of pins and needles, particularly exacerbated by walking. These symptoms have been attributed to lumbar spinal stenosis, causing neurogenic claudication, which worsens with prolonged walking. The patient has a history of a herniated disc, noted in an MRI from February, with a disc herniation towards the right side at L3-4 and extending towards L4-5. The herniation was relatively small and may have resolved over time, but the stenosis remains a significant concern. The patient has a history of a stroke last year, for which he was initially treated with Plavix, but is now only on a baby aspirin regimen. He also has a history of gastroesophageal reflux disease, for which he underwent a fundoplication in 1991. The patient reports asthma, which is activity-induced, and sleep apnea, for which he has an implanted device that is currently deactivated. - Musculoskeletal: Reports chronic lower back pain radiating to the back of both legs, reaching up to the knees. - Neurological: Reports intermittent numbness and a sensation of pins and needles in feet, exacerbated by walking. - Respiratory: Reports activity-induced asthma. Denies dyspnea at rest. - Cardiovascular: Denies chest pain or palpitations. - Gastrointestinal: Denies current symptoms of gastroesophageal reflux disease. - Sleep: Reports sleep apnea with an implanted device currently deactivated. Attestation: Documentation on this patient encounter was supported using ambient scribe technology/ voice AI technology. The patient consented to recording for the purpose of documenting the encounter. Provider reviewed content of the generated note prior to signature. 03/01/25: TRACY GOSS is a 69 year old M here today for lumbar spine MRI review. Patient would like to go over the MRI to discuss what the next step would be. He states that he hasn't had any recent injections since his last appointment. Patient hasn't done any physical therapy. He states that his lower back pain has decreased, since the acute flare that he had back in January however he continues to have chronic pain which he has been having for several years at this point. Patient's pain makes it difficult for him to stand or walk for extended periods of time. This has been a progressively worsening issue. Currently the patient is only able to stand for about half an hour before he has to sit down due to the pain. Because of this the patient has quit his job. Patient hasn't done a whole lot of work, he has been taking it easy. History of a fundoplasty surgery with midline incision. Sees cardiology with Dr. Goldsmith. Patient is on Plavix following a stroke in April 2024, patient says that the plan was for him to be on Plavix for a year which will be coming up in several months. He continues to have bilateral leg pain that extends down the back of his legs and stops at the knees. He also has anterior left-sided thigh numbness and tingling, and a right sided numbness and tingling over his pang. HPI from 02/15/25: TRACY GOSS is a 69 year old M here today for lumbar spine. Patient is having lower back pain. He is having pain going down both legs. Patient states that his left leg is more painful then the right leg. When he stands up his left leg gets really numb. Patient states that he does get numbness and tingling in his feet. This has been going on for years. Patient doesn't really know an exact date. He states that the pain hasn't gotten any better. Patient states that he was working outside and he thinks there was a pinch nerve. This accident happened about 2 weeks ago. He went to [facility]. He says that his pain has improved after this acute flare. However it is back to his current chronic pain. Patient has a constant pain that extends down the back of his thighs and stops at the knees. This is equal bilaterally. Patient has a right sided pang numbness and tingling and a burning sensation. The left lateral thigh he reports numbness and burning. Patient says that he also had a right sided hip pain. When his pain was at his worst he had to use a cane at today's appointment he did not have to use any ambulatory devices. He reports that his pain and burning sensation in his legs increases with standing. Says that he can only work for about half an hour before his pain increases to a point where he has to stop and sit down. Patient hasn't had any surgeries on his lower back. Standing for a long period of time makes the pain worse. Walking for a long period of time makes the pain worse. Patient has had Transforaminal injections his lower back a couple years ago. He had them done twice. Patient states that the injections didn't help at all. He has done physical therapy in the past, but not recently. Patient denies any smoking or drug use. Patient had a stroke in April, and he does have some balance issues depending on his vision. He hasn't used a walker or a cane. Patient denies any diabetes, but does take blood thinners. Takes Plavix after stent placement and stroke. Patient has a midline abdominal incision from prior surgery. Ortho Exam General General: Yes no acute distress Neurologic: Yes alert and Yes oriented x3 Spine SPINE TESTING CERVICAL THORACIC LUMBAR Musculoskeletal Strength 0=absent - 5=normal Details: Neurological exam of the lower extremities shows 5x5 power. Normal sensations across all dermatomes. No hyperreflexia. No midline or paraspinal tenderness. Coding Level of Care Code Off vis,est,level 4 Diagnoses Lumbar stenosis with neurogenic claudication M48.062 Degenerative disc disease (DDD) of lumbar region with discogenic back pain and leg pain M51.362 Spondylolisthesis, lumbar region M43.16 Time Spent (min) 35 Assessment and Plan Assessment and Plan (1) Lumbar stenosis with neurogenic claudication: Status: Acute (2) Degenerative disc disease (DDD) of lumbar region with discogenic back pain and leg pain: Status: Acute (3) Spondylolisthesis, lumbar region: Status: Acute Plan Again reviewed prior x-rays show mild multilevel degenerative changes throughout the lumbar spine. There is potentially a mild spondylolisthesis of L4 on L5, facet arthrosis seen from L4-S1. Reviewed lumbar MRI from February 22, 2025 which shows L3-4 central and right paracentral disc herniation with a large migrating disc extending inferiorly. There is moderate spinal canal stenosis and moderate right and mild left neuroforaminal stenosis. L4-5 posterior disc bulge resulting in moderate bilateral foraminal stenosis and severe spinal canal stenosis in combination with the severe bilateral facet arthropathy and ligamentum hypertrophy. 1. Lumbar spinal stenosis - The patient is scheduled for surgery to address the stenosis and associated neurogenic claudication. - The plan includes stabilization of the L3-5 levels and reduction of canal narrowing. - Post-operative care will focus on early mobilization to prevent complications. 2. Herniated disc - The herniation at L3-4 is expected to have resolved, but surgical intervention will ensure nerve decompression and stabilization. 3. Asthma - The patient is advised to monitor symptoms and use inhalers as needed, particularly for activity-induced episodes. 4. Sleep apnea - The patient has an implanted device for sleep apnea, which is currently deactivated. - Follow-up with the sleep specialist is recommended to optimize management. 5. History of stroke - The patient is on a baby aspirin regimen post-stroke and should continue monitoring with the help desk internship. 6. Gastroesophageal reflux disease (GERD) - The patient underwent fundoplication in 1991 with no current symptoms reported. - No further intervention is needed at this time. - Follow post-operative instructions carefully and engage in early mobilization to aid recovery. - Monitor asthma symptoms and use inhalers as needed, especially during physical activity. - Continue taking baby aspirin as prescribed and follow up with your help desk internship regularly. - Follow up with your sleep specialist to manage sleep apnea effectively. Explained the imaging findings in detail. At this time due to the patient's continued low back pain over 2 years which has been decreasing his quality of life with him having to quit work due to the pain and decreasing his walking and standing tolerance to 30 minutes at a time discussed options today which includes do-nothing, injections with pain management, surgery. The patient has attempted injections in the past and these were not helpful to him. Because of this he wishes to proceed with a surgical intervention. Discussed that surgery would be an L3-5 fusion. Discussed this procedure in detail and explained the risks, benefits and alternatives. The risks of surgery include but are not limited to infection, bleeding, injury to nerves or vessels, need for further surgery, ileus, vascular injury, visceral injury, DVT, pulmonary embolism, pneumonia, atelectasis, cardiopulmonary event, pseudoarthrosis, hardware failure, gait abnormality, adjacent segment degeneration. Discussed post-surgery restrictions in detail such as no bending, lifting, or twisting. Answered all questions to the patient?s satisfaction. Patient understands and agrees to proceed with surgery. Consent was signed.Follow up as needed or sooner if pain, swelling, numbness or associated symptoms, or concerns develop. All questions answered. Patient in agreement of plan.
[2025-06-12] MEDS: Lidocaine 1% (5 ml sdv) 5 ML Vial 10 ML IV (07:42)
--- NOTE | 2025-06-12 08:26 | RAD_ITS ---
PROCEDURE: LUMBAR SPINE 2 OR 3 VIEWS 06/12/2025 REASON FOR EXAM: 360 LUMBAR FUSION L3-4 L4-5 TECHNIQUE: Procedure Code: RADSPLL Modality: DX Procedure: LUMBAR SPINE 2 OR 3 VIEWS Fluoroscopy time: 125 seconds Total images: 19 COMPARISON: February 22, 2025 FINDINGS: Fluoroscopic spot images were obtained sign multiple retractors exposing the L4 level. Localizing device is seen over the disc space followed by disc spacer at L4/5 and L3/4. Small plate and screw is seen laterally at L4 and L5. This is followed by pedicle screws and rods at L3, L4 and L5. Alignment is anatomic. RAD/Lumbar Spine 2 or 3 Views IMPRESSION: Fluoroscopic localization and guidance. Correlate with procedural note. Reading Location: [id number]
[2025-06-12] MEDS: LACTATED RINGERS 2800 ML IV (10:10)
[2025-06-12] MEDS: fentaNYL 100 MCG/2 ML Ampul 200 MCG IV (10:55)
[2025-06-12] MEDS: TRANEXAMIC ACID 1,000 MG/10 ML ML 2000 MG IV (11:10)
[2025-06-12] MEDS: Cefazolin 1 GM/5 ML Vial 4 GM IV (11:40)
--- NOTE | 2025-06-12 12:00 | PCM.OPRPT ---
Procedures Musculoskeletal [id number]-29xxx: Other Procedure See Report Operative Report (Standard) Operative Information Date of Procedure: 06/12/25 Pre-Operative Diagnosis: L4-5 spondylolisthesis, L3-5 disc degeneration, stenosis with neurogenic claudication, right L3-4 disc herniation Post-Operative Diagnosis: Same Surgery/Procedure Performed: L3-5 oblique lumbar interbody fusion, anterior decompression, anterior instrumentation umbrella supervisor: Yes Estimator Paperboard Boxes: Merly Giraldo Tasks completed by assistant professor of spanish: Closing, Removing tissue, Hemostasis: Electrocautery and Retracting Type of Anesthesia: General RN Documented Start/Stop Times: Operation Date: 06/12/25 07:30 Case Time Into Pre-Op 06/12/25 05:41 Anesthesia Start 06/12/25 07:36 Into Room 06/12/25 07:36 Out of Pre-Op 06/12/25 07:36 Procedure Start 06/12/25 08:12 Procedure End 06/12/25 11:50 Procedure Start Time: 08:12 Procedure Stop Time: 11:50 Select all DRAINS/GRAFTS/IMPLANTS that apply: Graft Graft details: Allograft cancellous chips, autologous bone marrow aspirate from iliac crest and Implanted device Implanted device details: DePuy cougar lateral lumbar interbody cage, 4web 2 hole plate Estimated Blood Loss: 60 cc Specimen collected: No Description of surgery: Preoperative diagnosis: L4-5 spondylolisthesis, L3-5 disc degeneration, stenosis with neurogenic claudication, right L3-4 disc herniation with inferior migration Postoperative diagnosis: Same Name of procedures L3-5 oblique lumbar interbody fusion (OLIF), anterior decompression, anterior instrumentation, minimally invasive left sided approach, lateral decubitus: ? L3-4 anterolateral spinal fusion 69159 ? L4-5 anterolateral fusion 55669/51 ? L3-4 insertion of cage 13374 ? L4-5 insertion of cage 33752/51 . L4-5 anterior instrumentation 95305 ? Bone graft aspirate left iliac crest separate incision ? Allograft cancellous chips Attending Surgeon: Dr. Saad Vidales Estimated blood loss: 60 mL Anesthesia: General Complications: None Indications: Patient is a 70-year-old pleasant gentleman who has had a long history of low back pain and right worse than left lower extremity ideation. Xrays & MRI revealed L4-5 spondylolisthesis, L3-5 disc degeneration with stenosis, L3-4 right paracentral disc herniation with inferior migration. After undergoing a prolonged period of nonoperative treatment, the patient elected to undergo surgical decompression & fusion. All surgical options were discussed with the patient including anterior and posterior approaches. All risks and benefits associated with the procedure were explained to the patient. The risks include but are not limited to infection, bleeding, injury to nerves and vessels including major vessels like IVC and aorta, persistent paresthesia, persistent pain, dural tear, need for further procedures, adjacent segment degeneration, pseudoarthrosis, hardware failure, retrograde ejaculation, paralytic ileus, etc. Procedure: The patient was identified in the preoperative holding suite using Unique patient identifiers. Skin was marked, consent was reviewed, and all questions were answered. The patient was then brought back to the operative room. A surgical timeout was performed to make sure correct procedure was being done on the correct patient and all operative room staff were on the same page. General endotracheal anesthesia was then given to the patient. Rosenthal catheter was inserted. The patient was then carefully positioned in right lateral decubitus position with the left side up on a regular OR table. Axillary roll was placed and all bony prominences were well- padded. Hip positioners were placed in the posterior buttocks and anterior sternal area. The surgical area was prepped and draped in usual fashion. Preoperative antibiotic was injected IV as preoperative antibiotic. A final timeout was then again done just before starting the procedure. A 2 inch incision oblique was taken in the left lower quadrant of the abdomen 2 fingerbreadths away from the iliac crest and the lower ribs. Sharp dissection with Bovie was carried out up to the fascia covering the external oblique. The external oblique, internal oblique and transversus abdominis muscles were split along the muscle fibers and retroperitoneal space was entered. Sponge sticks were utilized to move the bowel and peritoneum nvb-lo-ceo-way and psoas muscle was exposed staying within the retroperitoneal plane. [place] [employer] retractor system was positioned and the retractor blade was applied onto the psoas. The interval between psoas and midline structures was developed and appropriate retractors were placed. Once adequate interval was cleared, a disc space was identified and a marker x-ray was taken. This identified the L4-5 disc level. The prepsoas interval was then traced superiorly to expose the L3-4. Annulotomy was done with a long handled knife starting at L4-5. Pituitary was used to remove disc material. Curettes were used to prepare the endplates. Disc space spreaders were utilized to distract and increase the disc height. Near complete discectomy was performed. Trials of serially increasing sizes were used. A Jamshidi needle was used to aspirate bone marrow from the left anterior iliac crest through a separate incision and this aspirate was mixed with the allograft bone chips. A Depuy [place] cage of size of the 18 x 50 x 12 mm with 15 degrees lordosis was packed with corticocancellous allograft bone chips mixed with bone marrow aspirate. This was inserted into the L4-5 disc space. The retractors were then repositioned to expose the L3-4 disc and the procedure was repeated with complete discectomy and endplate preparation. At the L3-4 level, right paracentral disc herniation was teased out with a help of ballpoint nerve hook but doing a partial annulotomy posteriorly. Smaller disc distractors were also used to bluntly perform a contralateral annulotomy at both levels. Cage size was 18 x 50 x 12 mm at L3-4. AP and lateral C-arm pictures were taken to confirm good position of the cage. Some bone chips were also packed around the cages. At L4-5, due to the significant instability, decision was made to perform and instrumentation. A 2 hole 4web plate was used, separate from the cage, with 2 screws going into L4 and L5 body providing anterior stability through instrumentation. Hemostasis was confirmed. The retractor blades were removed. Closure was done in layers with a continuous strand of # 1 Vicryl in all muscle layers. 2-0 Vicryl was used for subcutaneous tissue and 4-0 for Monocryl for the skin. Steri-Strips were applied and 4 x 4 gauze and Tegaderm were applied. General Road Supervisor Merly Giraldo PA-C. My physician doctor assistant was a vital part of this case. They were important in appropriate retraction during the case, and protection of soft tissues during the procedure. Their intimate knowledge of the case and my steps aided in safe and expedient completion of the procedure as well as appropriate position of the patient during the surgery. They were also vital in assisting with closure under my direct supervision. Surgical Findings: See operative note Complications Complications: No
--- NOTE | 2025-06-12 12:05 | OP.PCM_ITS ---
Procedures Musculoskeletal 20xxx-29xxx: Other Procedure See Report Operative Report (Standard) Operative Information Date of Procedure: 06/12/25 Pre-Operative Diagnosis: L4-5 spondylolisthesis, L3-5 disc degeneration, stenosis with neurogenic claudication, right L3-4 disc herniation Post-Operative Diagnosis: Same Surgery/Procedure Performed: L3-5 posterior spinal instrumented fusion caterpillar tractor operator: Yes Truck Loader And Unloader: Merly Giraldo Tasks completed by cleaner assistant: Closing, Removing tissue, Implanting device, Hemostasis: Electrocautery and Retracting Type of Anesthesia: General RN Documented Start/Stop Times: Operation Date: 06/12/25 07:30 Case Time Into Pre-Op 06/12/25 05:41 Anesthesia Start 06/12/25 07:36 Into Room 06/12/25 07:36 Out of Pre-Op 06/12/25 07:36 Procedure Start 06/12/25 08:12 Procedure End 06/12/25 11:50 Procedure Start Time: 08:12 Procedure Stop Time: 11:50 Select all DRAINS/GRAFTS/IMPLANTS that apply: Graft Graft details: Allograft c ancellous chips and Implanted device Implanted device details: DePuy Viper prime pedicle screw instrumentation Estimated Blood Loss: 60 cc Specimen collected: No Description of surgery: Preoperative diagnosis: L4-5 spondylolisthesis, L3-5 disc degeneration, stenosis with neurogenic claudication, L3-4 right paracentral disc herniation with inferior migration Postoperative diagnosis: Same Name of procedures: L3-5 posterior percutaneous pedicle screw instrumented fusion, prone: ? L3-4 posterior spinal fusion 84334 ? L3-5 posterior pedicle screw instrumentation 15959 ? L4-5 posterior fusion 31334/51 ? Allograft cancellous chips Attending Surgeon: Dr. Saad Vidales Estimated blood loss: 60 mL (total for entire case) Anesthesia: General Complications: None Description of procedure: After the anterior procedure was complete, the patient was then turned supine. The patient was then transferred to Jb table in prone position. Back was prepped and draped in usual fashion. C-arm AP view was then taken. C-arm was positioned in a way that L3 was centralized and superior endplate of was parallel to the beam. Spinous process was centered between the pedicles. Midline was marked with skin marker and lateral borders of the pedicles were also marked. Skin marker was also utilized to cyndee transversely across the middle of the pedicles at L3. 2 transverse paramedian incisions of 1 inch were placed. The fascia was incised vertically. Finger dissection was utilized to palpate the transverse process and facet joint. Viper Prime screws with towers were inserted and docked onto the transverse processes. This was then slowly moved medially to reach the superior articular process of L3. This was then confirmed on C-arm and then a mallet was utilized to drive the trocar into the pedicle going up to the medial wall of the pedicle on AP view. This was performed both sides. C-arm lateral view confirmed that the tip of the trocar was in the vertebral body, and the screw was advanced into the pedicle and vertebral body. This was repeated similarly at L4 and L5 bilaterally. Screw sizes were 7 x 50 mm at L3, L4, and L5 on both sides. 80 mm precontoured titanium 5.5 mm lordotic aishwarya on both sides were then passed through the screw extensions and reduced down to the screws with the help of [email or web address] Viper instrumentation system on both sides. AP and lateral view of the C-arm showed good positioning of the screws and cages. Final tightening with the torque screwdriver was then completed. Due to the adequate decompression anteriorly, decision was made not to perform any posterior decompression. Remberto was utilized to roughen the facet joint at L3-4 and L4-5 on the right side. Cancellous allograft bone chips mixed with bone marrow aspirate were then placed over this decorticated area. Hemostasis was achieved. Closure was done in layers with 0 Vicryls for the fascia, 2-0 Vicryls for the subcutaneous tissue, and Monocryl for the skin. Dermabond was applied. Dressings were applied covered with Tegaderm. The patient was then turned supine onto a hospital bed. The patient was extubated and taken to PACU in stable condition. The patient tolerated the procedure well and no complications occurred. Depuy [place] cage & Viper Prime minimally invasive pedicle screw instrumentation system was utilized in this case. No dural tear was identified intraoperatively. I was present for the entirety of the case and performed the surgery. Bed Maker Merly Giraldo PA-C. My physician family readiness support assistant was a vital part of this case. They were important in appropriate retraction during the case, and protection of soft tissues during the procedure. Their intimate knowledge of the case and my steps aided in safe and expedient completion of the procedure as well as appropriate position of the patient during the surgery. They were also vital in assisting with closure under my direct supervision. Surgical Findings: See operative note Complications Complications: No
--- NOTE | 2025-06-12 13:51 | PCM.POST.ANE ---
Anesthesia: Postop Eval I Current Vital Signs Temperature: 97 F Pulse Rate: 76 Blood Pressure: 103/57 Respiratory Rate: 18 Pulse Ox: 97 Oxygen Delivery Method: Simple Mask Oxygen Flow Rate (L/min): 6 Assessment Airway patent: Yes Spontaneous unlabored respirations: Yes Mental status: Awake and Calm nausea: No Vomiting: No Anesthesia Complication: No Fluid Hydration Crystalloid volume administer (ml): 2,800 Total IV fluid infused: 2,800 Progress Note Anesthesia document: Postop Eval 1 completed: Yes
--- NOTE | 2025-06-12 14:56 | POSTOPAN2_ITS ---
Anesthesia Postop Eval I Sum Postop Eval Completion status Anesthesia document: Postop Eval 1 completed: Yes Anesthesia Postop Eval I Summary Anesthesia Postop Eval I Summary: Anesthesia Postop Eval I: Assessment Summary Airway patent Yes 06/12/25 13:52 STEAM CRANE [email or web address] Spontaneous unlabored Yes 06/12/25 13:52 STEAM CRANE OPERATOR.[email or web address] respirations Mental status Awake,Calm 06/12/25 13:52 STEAM CRANE OPERATOR.[email or web address] nausea No 06/12/25 13:52 STEAM CRANE OPERATOR.[email or web address] Vomiting No 06/12/25 13:52 STEAM CRANE [email or web address].[email or web address] Anesthesia Postop Eval I: Fluid Summary Crystalloid volume administer 2,800 06/12/25 13:52 STEAM [email or web address].[email or web address] (ml) Colloids volume administered ( ml) Blood Product volume administered (ml) Total IV fluid infused 2,800 06/12/25 13:52 STEAM CRANE OPERATOR.ERICOBPhylicia Anesthesia Postop Eval I: Summary Notes Anesthesia Complication No 06/12/25 13:52 STEAM CRANE OPERATOR.ERICOBPhylicia Anesthesia Complication Comment: Post-operative progress note Anesthesia: Postop Eval II Evaluation Mental status: Awake and Calm Pain Level: 1 nausea: No Vomiting: No Complications Anesthesia Complication: No
--- NOTE | 2025-06-12 14:56 | PCM.POSTANE2 ---
Anesthesia Postop Eval I Sum Postop Eval Completion status Anesthesia document: Postop Eval 1 completed: Yes Anesthesia Postop Eval I Summary Anesthesia Postop Eval I Summary: Anesthesia Postop Eval I: Assessment Summary Airway patent Yes 06/12/25 13:52 POLICY WRITER [email or web address] Spontaneous unlabored Yes 06/12/25 13:52 POLICY WRITER TYPIST.ERICOBPhylicia respirations Mental status Awake,Calm 06/12/25 13:52 POLICY WRITER [email or web address].[email or web address] nausea No 06/12/25 13:52 POLICY WRITER TYPIST.[email or web address] Vomiting No 06/12/25 13:52 POLICY WRITER [email or web address] Anesthesia Postop Eval I: Fluid Summary Crystalloid volume administer 2,800 06/12/25 13:52 POLICY WRITER [email or web address] (ml) Colloids volume administered ( ml) Blood Product volume administered (ml) Total IV fluid infused 2,800 06/12/25 13:52 POLICY WRITER TYPIST.ERICOBPhylicia Anesthesia Postop Eval I: Summary Notes Anesthesia Complication No 06/12/25 13:52 POLICY WRITER TYPIST.ERICOBPhylicia Anesthesia Complication Comment: Post-operative progress note Anesthesia: Postop Eval II Evaluation Mental status: Awake and Calm Pain Level: 1 nausea: No Vomiting: No Complications Anesthesia Complication: No
--- NOTE | 2025-06-12 15:54 | PN.HOSP_ITS ---
Subjective Subjective 70-year-old male presents to the hospital for an elective L3-5 posterior spinal instrumented fusion for disc degeneration and stenosis with neurogenic claudication. No recent changes in his medications. Objective Data Objective Data Vital Signs: Vital Signs Temp Pulse Resp BP Pulse Ox O2 Del Method O2 Flow Rate 98 F 84 16 110/66 94 Nasal Cannula 4 06/12/25 15:00 06/12/25 15:00 06/12/25 15:00 06/12/25 15:00 06/12/25 15:00 06/12/25 15:00 06/12/25 15:00 Oxygen Flow Rate (L/min) 4 Oxygen Delivery Method Nasal Cannula Weight: 207 lb 3.2 oz Body Mass Index (BMI) 33.9 Intake & Output: Intake and Output for Last 24 Hours 06/11/25 06/12/25 06/13/25 03:59 03:59 03:59 Intake Total 102 / 102 Output Total 560 / 560 Balance -458 / -458 Lab / Micro Data 05/31/25 10:04 05/31/25 10:04 Labs: Laboratory Results - last 24 hr 06/12/25 05:56: POC Glucose 123 H 06/12/25 11:06: Blood Type A NEGATIVE, Antibody Screen NEGATIVE Micro: Microbiology 05/31/25 10:04 Swab (Method) Nasal Screen MRSA/MSSA - Final Radiography Diagnostic Testing: Radiology Impression Lumbar Spine X-Ray 06/12/25 08:26 IMPRESSION: Fluoroscopic localization and guidance. Correlate with procedural note. Reading Location: [facility] Physical Exam Narrative General: Alert but drowsy after anesthesia, Oriented x3, Cooperative, No apparent distress HEENT: Atraumatic, PERRLA, EOMI, Normocephalic Oral: Moist Mucosa Neck: Supple, No JVD Lungs: Diminished, Normal air movement, No rhonchi, No wheeze, No rales Cardiovascular: Regular rate, Regular Rhythm, Normal S1, Normal S2, No murmurs Abdomen: Soft, Non Tender, Non-Distended, No Hepato-splenomegaly Extremities: No edema, Capillary Refill Less than 3 Seconds Skin: Dressing CDI Musculoskeletal: No Tenderness to Palpation of Joints or Extremities Neurological: No focal neurological deficits, moves all extremities Psych/Mental Status: Normal Affect, Appropriate Assessment & Plan Assessment/Plan (1) Spondylolisthesis, lumbar region: (2) Status post lumbar spinal fusion: PLAN: Plan 1. Status post L3-5 fusion for spondylolisthesis and stenosis with neurogenic claudication on 06/12/2025 ? PT/OT ? Pain management per primary 2. Essential HTN/HLD ? Resume his home blood pressure medications ? Will check creatinine in the morning ? He is on Repatha which he gets every 2 weeks, can resume at home on discharge 3. BPH with obstruction ? Stable ? Continue with Flomax DVT: Per primary Charges/Coding Visit Charges Inpatient E&M: 32481 Subs Hosp L2
[2025-06-12] MEDS: Cefazolin 2 GM in 0.9% Normal Saline (100mL Bag) 100 ML IV (18:32)
--- NOTE | 2025-06-12 21:44 | NURSING ---
Po 88% on ra. 02 at 2lnc appilied
[2025-06-13] VITALS (7 sets, daily range): BP systolic 98–125; BP diastolic 54–78; PULSE 76–93; RESP 16–18; TEMP 36.3–36.7; O2SAT 83–99
[2025-06-13] MEDS: Senna/Docusate Sodium 1 Tablet 2 TABLET PO ×2 (00:04→08:08)
[2025-06-13] MEDS: 0.9% Saline Lock 10 ML Syringe IV ×2 (00:06→02:53)
[2025-06-13] MEDS: Cefazolin 2 GM in 0.9% Normal Saline (100mL Bag) 100 ML IV (02:47)
--- NOTE | 2025-06-13 05:30 | RAD_ITS ---
PROCEDURE: LUMBAR SPINE 2 OR 3 VIEWS 06/13/2025 REASON FOR EXAM: STATUS POST LUMBAR FUSION TECHNIQUE: Procedure Code: RADSPLL Modality: DX Procedure: LUMBAR SPINE 2 OR 3 VIEWS COMPARISON: June 12, 2025 FINDINGS: There is hardware from L3-5, new compared to the prior, with anatomic alignment, and appears intact. Vascular calcifications are noted. Mineralization is normal. RAD/Lumbar Spine 2 or 3 Views IMPRESSION: Hardware in position. Reading Location: [facility]
[2025-06-13 07:06] LABS: Hematocrit 37.6 % (40-54); Hemoglobin 12.1 g/dL (13.0-16.5); Immature Granulocytes Count 0.060 X10^3/uL (0.0-0.0); Mean Corp Hgb Conc 32.2 g/dL (32-36); Mean Corpuscular Volume 94.5 fL (80-94); Mean Platelet Vol. 9.0 fl (6.2-12.0); NRBC Flagged by Analyzer 0 % (0-5); Platelet Count 259 K/mm3 (150-450); RBC Distribution Width CV 13.4 % (11.6-14.6); RBC Distribution Width SD 46.2 fl (35.1-43.9); Red Blood Count 3.98 M/mm3 (4.6-6.2); White Blood Count 13.6 K/mm3 (4.4-11.0)
[2025-06-13 07:29] LABS: Anion Gap 11 (5-15); BUN 25 mg/dL (4-19); BUN/Creat Ratio 20.1 RATIO (10-20); Calcium,Total 8.4 mg/dL (7.6-11.0); Carbon Dioxide 22.8 mmol/L (21.0-32.0); Chloride 102 mmol/L (98-108); Estimated Creatinine Clearance 59.12 ml/min (50-250); Glucose 135 mg/dL (70-99); Potassium 4.7 mmol/L (3.3-5.1)
--- NOTE | 2025-06-13 09:51 | PCM.PN.HOSP ---
Subjective Subjective Doing well, no issues overnight. Has not had a BM or flatus yet so still on clears Objective Data Objective Data Vital Signs: Vital Signs Temp Pulse Resp BP Pulse Ox O2 Del Method O2 Flow Rate 97.4 F L 80 18 117/54 L 97 Room Air 2 06/13/25 08:36 06/13/25 08:36 06/13/25 08:36 06/13/25 08:36 06/13/25 08:36 06/13/25 08:36 06/13/25 02:49 Oxygen Flow Rate (L/min) 2 Oxygen Delivery Method Room Air Weight: 207 lb 3.2 oz Body Mass Index (BMI) 33.9 Intake & Output: Intake and Output for Last 24 Hours 06/12/25 06/13/25 06/14/25 03:59 03:59 03:59 Intake Total 972 / 972 Output Total 1060 / 1060 600 / 600 Balance -88 / -88 -600 / -600 Lab / Micro Data 06/13/25 06:58 06/13/25 06:58 Labs: Laboratory Results - last 24 hr 06/12/25 11:06: Blood Type A NEGATIVE, Antibody Screen NEGATIVE 06/13/25 06:58: WBC 13.6 H, RBC 3.98 L, Hgb 12.1 L, Hct 37.6 L, MCV 94.5 H, MCH 30.4, MCHC 32.2, RDW Std Deviation 46.2 H, RDW Coeff of Bobby 13.4, Plt Count 259, MPV 9.0, Immature Gran % (Auto) 0.400, Neut % (Auto) 81.1 H, Lymph % (Auto) 9.1 L, [place] % (Auto) 9.3, Eos % (Auto) 0.0, Baso % (Auto) 0.1, Absolute Neuts (auto) 11.0 H, Absolute Lymphs (auto) 1.24, Nucleated RBC % 0, Sodium 137, Potassium 4.7, Chloride 102, Carbon Dioxide 22.8, Anion Gap 11, BUN 25 H, Creatinine 1.26 H, Estim Creat Clear Calc 59.12, Est GFR (MDRD) Non-Af 62, BUN/Creatinine Ratio 20.1 H, Glucose 135 H, Calcium 8.4 Micro: Microbiology 05/31/25 10:04 Swab (Method) Nasal Screen MRSA/MSSA - Final Radiography Diagnostic Testing: Radiology Impression Lumbar Spine X-Ray 06/12/25 08:26 IMPRESSION: Fluoroscopic localization and guidance. Correlate with procedural note. Reading Location: [facility] Lumbar Spine X-Ray 06/13/25 05:30 IMPRESSION: Hardware in position. Reading Location: [facility] Physical Exam Narrative General: Alert , Oriented x3, Cooperative, No apparent distress HEENT: Atraumatic, PERRLA, EOMI, Normocephalic Oral: Moist Mucosa Neck: Supple, No JVD Lungs: Diminished, Normal air movement, No rhonchi, No wheeze, No rales Cardiovascular: Regular rate, Regular Rhythm, Normal S1, Normal S2, No murmurs Abdomen: Soft, Non Tender, Non-Distended, No Hepato-splenomegaly Extremities: No edema, Capillary Refill Less than 3 Seconds Skin: Dressing CDI Musculoskeletal: No Tenderness to Palpation of Joints or Extremities Neurological: No focal neurological deficits, moves all extremities, sensation intact Psych/Mental Status: Normal Affect, Appropriate Assessment & Plan Assessment/Plan (1) Spondylolisthesis, lumbar region: (2) Status post lumbar spinal fusion: PLAN: Plan 1. Status post L3-5 fusion for spondylolisthesis and stenosis with neurogenic claudication on 06/12/2025 ? PT/OT ? Pain management per primary ? Medically stable for discharge, he did have a little bit of a reactive leukocytosis ? Maintaining clears until he has bowel function 2. Essential HTN/HLD ? Resume his home blood pressure medications ? Renal function is 1.26 which is close to baseline ? He is on Repatha which he gets every 2 weeks, can resume at home on discharge 3. BPH with obstruction ? Stable ? Continue with Flomax DVT: Per primary Charges/Coding Visit Charges Inpatient E&M: 94201 Subs Hosp L2
--- NOTE | 2025-06-13 10:25 | PCM.PN.ORT ---
Subjective Subjective Postop day 1 L3-5 fusion. The patient is doing very well postoperatively with pain well-controlled. The patient has not yet passed gas. The patient has been up and walking and tolerates movement well. PT/OT will work with him this morning. As of the time of this note their evaluation has not yet been put in. Seen with Dr. Vidales. Objective Data Objective Data Vital Signs: Vital Signs Temp Pulse Resp BP Pulse Ox O2 Del Method O2 Flow Rate 97.4 F L 80 18 117/54 L 97 Room Air 2 06/13/25 08:36 06/13/25 08:36 06/13/25 08:36 06/13/25 08:36 06/13/25 08:36 06/13/25 08:36 06/13/25 02:49 Oxygen Flow Rate (L/min) 2 Oxygen Delivery Method Room Air Weight: 207 lb 3.2 oz Body Mass Index (BMI) 33.9 Intake & Output: Intake and Output for Last 24 Hours 06/11/25 06/12/25 06/13/25 23:59 23:59 23:59 Intake Total 862 / 862 110 / 110 Output Total 810 / 810 850 / 850 Balance 52 / 52 -740 / -740 Lab / Micro Data 06/13/25 06:58 06/13/25 06:58 Labs: Laboratory Results - last 24 hr 06/12/25 11:06: Blood Type A NEGATIVE, Antibody Screen NEGATIVE 06/13/25 06:58: WBC 13.6 H, RBC 3.98 L, Hgb 12.1 L, Hct 37.6 L, MCV 94.5 H, MCH 30.4, MCHC 32.2, RDW Std Deviation 46.2 H, RDW Coeff of Bobby 13.4, Plt Count 259, MPV 9.0, Immature Gran % (Auto) 0.400, Neut % (Auto) 81.1 H, Lymph % (Auto) 9.1 L, [place] % (Auto) 9.3, Eos % (Auto) 0.0, Baso % (Auto) 0.1, Absolute Neuts (auto) 11.0 H, Absolute Lymphs (auto) 1.24, Nucleated RBC % 0, Sodium 137, Potassium 4.7, Chloride 102, Carbon Dioxide 22.8, Anion Gap 11, BUN 25 H, Creatinine 1.26 H, Estim Creat Clear Calc 59.12, Est GFR (MDRD) Non-Af 62, BUN/Creatinine Ratio 20.1 H, Glucose 135 H, Calcium 8.4 Micro: Microbiology 05/31/25 10:04 Swab (Method) Nasal Screen MRSA/MSSA - Final Radiography Diagnostic Testing: Radiology Impression Lumbar Spine X-Ray 06/12/25 08:26 IMPRESSION: Fluoroscopic localization and guidance. Correlate with procedural note. Reading Location: [id number] Lumbar Spine X-Ray 06/13/25 05:30 IMPRESSION: Hardware in position. Reading Location: [facility] Physical Exam Narrative Neurological examination of the lower extremity shows 5X5 power. Normal sensation across all dermatomes. Physical examination of the back and belly shows Tegaderm and gauze CDI. Const alert, oriented x3 and no apparent distress Assessment & Plan Assessment/Plan (1) Status post lumbar spinal fusion: PLAN: Plan Postop day 1 L3-5 fusion. Obtained reviewed x-rays today which show hardware and bone graft in good position. PT/OT to work with the patient and cleared for home discharge, this is anticipated as he has been very active throughout the night and is walking well without any assistance. Patient's pain has been well-controlled. Home-going meds will include oxycodone, acetaminophen, methocarbamol, meloxicam, senna. Medications will be sent to [facility] in [place]. We are still waiting for the patient to pass gas. Once he does pass gas he will eat something solid and if that is tolerated without any nausea or vomiting he will then be sent home. Encouraged the patient to drink plenty of fluids and to walk more today to help encourage the passage of gas. Dulcolax x 1 ordered. If the patient does not pass gas today he will stay another night, otherwise if he does pass it today we will send him home. Patient is in agreement.
--- NOTE | 2025-06-13 11:56 | CHAPLAIN ---
Type of Pastoral Visit _x__ Initial Visit ___ Follow-up Visit ___ On-call Visit ___ General Patient Visit ___ Spiritual Assessment ___ Family Conference ___ Bereavement ___ Rapid Response ___ Code Blue ___ Other (describe below) Pastoral Care Referral From _x__ Patient ___ Family ___ Nurse ___ Physician ___ Bowling Ball Finisher ___ Machine Fitter ___ Other (describe below) Sacrament/Intervention _x__ Active listening ___ Anointing ___ Jain ___ Bereavement ___ Communion ___ Carina exploration ___ _x__ Life review ___ Prayer ___ Reconciliation ___ Sacrament of Sick _x__ Supportive presence ___ Wedding ___ Other (describe below) Pastoral Comments family 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
--- NOTE | 2025-06-13 14:10 | CASEMGMT ---
Dx:360 lumbar fusion, laminectomy decompression LACE:1 6-Clicks:20 Medical record reviewed and patient evaluated for identification of discharge planning needs. Based on this review, at this time criteria are not present to indicate a need for discharge planning. Will remain available to assist with discharge planning needs as identified or requested. Pt ambulating in halls. Noted therapy evals, no PT recommended unless after f/u. Pt has DME at home. Pt to dc this date if able to pass gas.
--- NOTE | 2025-06-13 16:05 | DCINST_ITS ---
Discharge Instructions DC O2, CPAP, BIPAP needs Home O2 Discharge instructions: No Follow Up Care Test Results: Test results from this visit will be discussed in further detail at your follow- up appointment, if applicable. Discharge Plan Admission Admit Date/Time: 06/12/25 11:45 Attending Provider: Saad Vidales Primary Care Provider: Regis Phillips Consulting Providers: Raj Freire Discharge Orders/Prescriptions Prescriptions: New acetaminophen 500 mg Tablet 1,000 mg PO Q6H Qty: 30 0RF meloxicam 15 mg Tablet 15 mg PO DAILY Qty: 30 0RF methocarbamol 500 mg Tablet 750 mg PO TID PRN (Reason: Pain/spasms) Qty: 30 0RF oxycodone 5 mg Tablet 2.5 - 5 mg PO Q6H PRN (Reason: pain) 7 Days Qty: 28 0RF sennosides-docusate sodium [Stimulant Laxative Plus] 8.6-50 mg Tablet 2 tab PO BID PRN (Reason: constipation) Qty: 14 0RF Continued cholecalciferol (vitamin D3) 50 mcg (2,000 unit) capsule 50 mcg PO DAILY Repatha SureClick 140 mg/mL pen injector 140 mg subcut Q2W Zyrtec 10 mg capsule 10 mg PO QDAY PRN (Reason: allergic symptoms) garlic 500 mg capsule 500 mg PO QDAY Adult 50 Plus Probiotic 4 billion cell capsule 4,000 mmu cells PO QDAY Rx Instructions: administer with a meal cayenne pepper 1 cap PO DAILY Mag Glycinate 100 mg tablet 100 mg PO DAILY tamsulosin 0.4 mg capsule 0.4 mg PO QHS nitroglycerin 0.4 mg tablet, sublingual 0.4 mg sublingual Q5M PRN (Reason: CHEST PAIN) losartan 100 mg tablet 100 mg PO DAILY nitric oxide 1 cap PO DAILY vitamin B complex Capsule 1 cap PO DAILY zinc gluconate 50 mg tablet 50 mg PO DAILY Breo Ellipta 50-25 mcg/dose blister with device 1 inh inhalation ascorbic acid (vitamin C) 500 mg Tablet 500 mg PO DAILY Qty: 1 0RF carvedilol 25 mg tablet 25 mg PO BID Qty: 180 3RF amlodipine 5 mg tablet 5 mg PO QDAY Qty: 30 11RF Held aspirin 81 mg Tablet,Delayed Release (Dr/Ec) 81 mg PO BREAKFAST Qty: 1 0RF Hold Instructions: Resume on 06/14/25. Referrals / Follow Up: Regis Phillips DO [Primary Care Provider, Medical] Disposition Disposition (needs filled in before D/C Order can be placed): Home, Self Care
== END 2025-06-13 18:22 | disposition home or self-care (01) | DRG 427 ==
PROVIDERS: Anesthesiology; Student in an Organized Health Care Education/Training Program; Admitting Provider Orthopaedic Surgery Orthopaedic Surgery of the Spine; Referring Provider Orthopaedic Surgery Orthopaedic Surgery of the Spine; Visit Provider Orthopaedic Surgery Orthopaedic Surgery of the Spine
PROC: 0SG10A0 Fusion of 2 or more Lumbar Vertebral Joints with Interbody Fusion Device, Anterior Approach, Anterior Column, Open Approach (ICD-10-PCS; principal; 2025-06-12 07:00)
DX: M48.062 Spinal stenosis, lumbar region with neurogenic claudication (principal); N13.8 Other obstructive and reflux uropathy; I10 Essential (primary) hypertension; J45.909 Unspecified asthma, uncomplicated; M43.16 Spondylolisthesis, lumbar region; I25.10 Atherosclerotic heart disease of native coronary artery without angina pectoris; K21.9 Gastro-esophageal reflux disease without esophagitis; G47.33 Obstructive sleep apnea (adult) (pediatric); E78.5 Hyperlipidemia, unspecified; M51.360 Other intervertebral disc degeneration, lumbar region with discogenic back pain only; N40.1 Benign prostatic hyperplasia with lower urinary tract symptoms; Z79.899 Other long term (current) drug therapy; Z86.73 Personal history of transient ischemic attack (TIA), and cerebral infarction without residual deficits; Z79.82 Long term (current) use of aspirin; Z95.5 Presence of coronary angioplasty implant and graft
CPT/HCPCS: 36415; 72100; 76000; 80048; 82962; 83036; 83735; 85025; 86703; 86706; 86708; 86803; 86850; 86900; 86901; 87081; 93005; 94668; 97162; 97167; 97530; C1713; A4216; J2405; J3475